=== PATIENT | male | born 1955 | race Caucasian/White ===

== ENCOUNTER 2023-04-24 12:15 | Inpatient (IN) | payer MEDICARE, SELFPAY ==
[2023-04-24] VITALS (21 sets, daily range): BP systolic 107–154; BP diastolic 67–86; PULSE 78–93; RESP 15–35; TEMP 36.8–37.1; O2SAT 77–94; BMI 34.2; BMI 34.3
--- NOTE | 2023-04-24 12:36 | XR_ITS ---
[facility] [place] [id number] Patient Name: BIPIN ULLOA MRN: [id number] date: 1955 Sex: M Assigned Patient Location: ER Current Patient Location: ER Accession/Order Number: [id number] Exam Date: 04/24/2023 12:40 Report Date: 04/24/2023 13:10 At the request of: MAGGIE LIU Procedure: XR chest 1V XR chest 1V, 04/24/2023 12:40 PM EDT, OH001 INDICATION: SOB COMPARISON: Chest CT from 10/22/2022. TECHNIQUE: Frontal view of the chest obtained. FINDINGS: The heart is normal in size. The aorta and mediastinum appear unremarkable. There is mild prominence of the pulmonary vasculature, especially on the left. Note is again made of elevation right hemidiaphragm with right basilar atelectasis. There are increased interstitial markings throughout the left lung which may represent pneumonitis or asymmetric interstitial edema. There is no evidence of pneumothorax or pleural effusion. The osseous structures appear intact. XR/XR chest 1V IMPRESSION: There is mild pulmonary vascular congestion with increased interstitial markings on the left which may represent interstitial infiltrate or asymmetric edema. Chronic right lower lobe atelectasis is again noted. Electronically authenticated by: LG BECERRA Date: 04/24/2023 13:10
--- NOTE | 2023-04-24 12:36 | ECG_ITS ---
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
--- NOTE | 2023-04-24 12:38 | ED.SOB1 ---
HPI - SOB/Dyspnea General Chief Complaint: Shortness of Breath/Dyspnea Stated Complaint: CHEST PAIN/COUGH Time Seen by Provider: 04/24/23 12:32 Source: patient Mode of arrival: walk-in History of Present Illness HPI Narrative: 67-year-old male presents for shortness of breath. He's had this for two or three days. He's been coughing up a little bit of off white phlegm and used his nebulizer at home, he has chronic obstructive pulmonary disease. No hemoptysis or fever. He thinks he might be getting an infection. No vomiting or diarrhea. Related Data Home Medications Medication Instructions Recorded Confirmed albuterol sulfate 2.5 mg/3 mL 2.5 mg inhalation Q6H PRN 04/24/23 04/24/23 (0.083 %) solution for nebulization shortness of breath or wheezing amlodipine 5 mg tablet 5 mg PO DAILY 04/24/23 04/24/23 aspirin 81 mg tablet,delayed 81 mg PO DAILY 04/24/23 04/24/23 release (Adult Low Dose Aspirin) atorvastatin 10 mg tablet 10 mg PO DAILY 04/24/23 04/24/23 cholecalciferol (vitamin D3) 50 50 mcg PO DAILY 04/24/23 04/24/23 mcg (2,000 unit) capsule (Vitamin D3) fluticasone 500 mcg-salmeterol 50 1 inh inhalation BID 04/24/23 04/24/23 mcg/dose blistr powdr for inhalation (Wixela Inhub) hydroxychloroquine 200 mg tablet 200 mg PO DAILY 04/24/23 04/24/23 lisinopril 40 mg tablet 40 mg PO DAILY 04/24/23 04/24/23 metoprolol tartrate 50 mg tablet 75 mg PO Q12H 04/24/23 04/24/23 pantoprazole 40 mg tablet,delayed 40 mg PO Q12H 04/24/23 04/24/23 release sulfasalazine 500 mg tablet 1 g PO Q12H 04/24/23 04/24/23 Allergies Allergy/AdvReac Type Severity Reaction Status Date / Time azithromycin [From Zithromax] Allergy Unknown Verified 04/24/23 13:39 Review of Systems ROS Narrative A ten point review of systems is negative except as noted above. Exam Narrative Exam Narrative: Nurses note and vital signs reviewed and patient is not hypoxic. General: The patient appears well and in no apparent distress. Patient is resting comfortably on cart. Skin: Warm, dry, no pallor noted. There is no rash noted. Head: Normocephalic, atraumatic Eye: Normal conjunctiva, no drainage Ears, Nose, Mouth, and Throat: oral mucosa is moist. Nares patent. Cardiovascular: Regular Rate and Rhythm Respiratory: bilateral rhonchi throughout Back: non-tender GI: soft and nontender Musculoskeletal: The patient has no evidence of calf tenderness, no pitting edema, symmetrical pulses noted bilaterally Neurological: A&O, normal speech Psychiatric: Cooperative Constitutional Vital Signs, click to edit/add: Last Vital Signs Temp 98.4 F 04/24/23 12:24 Pulse 79 04/24/23 13:10 Resp 16 04/24/23 13:10 BP 137/74 04/24/23 13:00 Pulse Ox 92 L 04/24/23 13:11 O2 Del Method Room Air 04/24/23 13:11 Course Vital Signs Vital signs: Vital Signs Temperature 98.4 F 04/24/23 12:24 Pulse Rate 84 04/24/23 12:24 Respiratory Rate 22 04/24/23 12:24 Blood Pressure 154/86 H 04/24/23 12:24 Pulse Oximetry 93 L 04/24/23 12:24 Oxygen Delivery Method Room Air 04/24/23 12:24 Temperature 98.4 F 04/24/23 12:24 Pulse Rate 79 04/24/23 13:10 Respiratory Rate 16 04/24/23 13:10 Blood Pressure 137/74 04/24/23 13:00 Pulse Oximetry 92 L 04/24/23 13:11 Oxygen Delivery Method Room Air 04/24/23 13:11 MDM - SOB/Dyspnea MDM Narrative Medical decision making narrative: The patient presents with what appears to be a chronic obstructive pulmonary disease exacerbation and he also tested positive for coated. No definite infiltrate noted on his chest x-ray. O2 sat is in the upper 80s and lower 90s and he is placed on oxygen and he is being admitted. He was given the option of going home but he doesn't feel well enough to go home and family agrees. Differential Diagnosis Differential diagnosis: Likely acute exacerbation of chronic obstructive airways disease, congestive heart failure, community acquired pneumonia and other (Covid) Lab Data Attestation: I reviewed the patient's lab results. Labs: Lab Results 04/24/23 04/24/23 Range/Units 12:35 13:22 WBC 6.0 (4.0-11.0) 10^3/uL RBC 4.86 (4.70-6.10) 10^6/uL Hgb 14.5 (14.0-18.0) g/dL Hct 43.1 (42.0-54.0) % MCV 88.7 (80.0-94.0) fL MCH 29.8 (25.9-34.0) pg MCHC 33.6 (29.9-35.2) g/dL RDW 12.7 (11.0-15.0) % Plt Count 191 (150-450) 10^3/uL MPV 9.5 (9.5-13.5) fL Neut % (Auto) 60.6 (43.0-75.0) % Lymph % (Auto) 17.1 L (20.5-60.0) % Kemper % (Auto) 18.2 H (1.7-12.0) % Eos % (Auto) 2.5 (0.9-7.0) % Baso % (Auto) 1.3 (0.2-2.0) % Neut # (Auto) 3.7 (1.4-6.5) 10^3/uL Lymph # (Auto) 1.0 L (1.2-3.8) 10^3/uL Kemper # (Auto) 1.1 H (0.3-0.8) 10^3/uL Eos # (Auto) 0.2 (0.0-0.7) 10^3/uL Baso # (Auto) 0.1 (0.0-0.1) 10^3/uL Abs Immat Gran (auto) 0.02 (0.00-0.03) 10^3/uL Imm/Tot Granulo (auto) 0.3 (0.0-0.5) % Sodium 127 L (136-145) mmol/L Potassium 4.0 (3.5-5.1) mmol/L Chloride 91 L (98-107) mmol/L Carbon Dioxide 30.5 (21.0-32.0) mmol/L Anion Gap 9.5 BUN 9.0 (7.0-18.0) mg/dL Creatinine 0.79 (0.70-1.30) mg/dL Est GFR ( Amer) >60 (>=60) Est GFR (Non-Af Amer) >60 (>=60) BUN/Creatinine Ratio 11.4 Glucose 97 (74-106) mg/dL Calcium 8.9 (8.5-10.1) mg/dL NT-Pro-B Natriuret Pep 566.0 (<=900.0) pg/mL SARS-CoV-2 (PCR) Positive A (NEGATIVE) Imaging Data Chest x-ray: Radiologist's impression: Procedure: XR chest 1V XR chest 1V, 04/24/2023 12:40 PM EDT, OH001 INDICATION: SOB COMPARISON: Chest CT from 10/22/2022. TECHNIQUE: Frontal view of the chest obtained. FINDINGS: The heart is normal in size. The aorta and mediastinum appear unremarkable. There is mild prominence of the pulmonary vasculature, especially on the left. Note is again made of elevation right hemidiaphragm with right basilar atelectasis. There are increased interstitial markings throughout the left lung which may represent pneumonitis or asymmetric interstitial edema. There is no evidence of pneumothorax or pleural effusion. The osseous structures appear intact. IMPRESSION: There is mild pulmonary vascular congestion with increased interstitial markings on the left which may represent interstitial infiltrate or asymmetric edema. Chronic right lower lobe atelectasis is again noted. Electronically authenticated by: LG BECERRA Date: 04/24/2023 13: Critical Care Time Critical Care Time Critical Care Time: Yes Total Critical Care Time: 35 Attestation: Due to the high probability of sudden and clinically significant deterioration in the patient's condition he/she required the highest level of my preparedness to intervene urgently I provided critical care time including documentation time, medication orders and management, reevaluation, vital sign assessment, ordering and reviewing of lab tests, ordering and reviewing of x-ray studies, and admission orders. Aggregate critical care time is 35 minutes including only time during which I was engaged in work directly related to his/her care and did not include time spent treating other patients simultaneously. Discharge Plan Discharge Chief Complaint: Shortness of Breath/Dyspnea Clinical Impression: COVID-19, Acute infective exacerbation of chronic obstructive airway disease Patient Disposition: Admitted as Observation Time of Disposition Decision: 14:03 Condition: Good
[2023-04-24] MEDS: METHYLPREDNISOLONE SOD SUCC PF 125 MG/2 ML VIAL IVP (12:52)
[2023-04-24 12:59] LABS: Basophils Absolute Auto 0.1 10^3/uL (0.0-0.1); Basophils Percent Auto 1.3 % (0.2-2.0); Eosinophils Absolute Auto 0.2 10^3/uL (0.0-0.7); Eosinophils Percent Auto 2.5 % (0.9-7.0); Hematocrit 43.1 % (42.0-54.0); Hemoglobin 14.5 g/dL (14.0-18.0); Immature Granulocytes Abs Auto 0.02 10^3/uL (0.00-0.03); Immature Granulocytes Pct Auto 0.3 % (0.0-0.5); Lymphocytes Percent Auto 17.1 % (20.5-60.0); Mean Corpuscular HGB Conc 33.6 g/dL (29.9-35.2); Mean Corpuscular Hemoglobin 29.8 pg (25.9-34.0); Mean Corpuscular Volume 88.7 fL (80.0-94.0); Mean Platelet Volume 9.5 fL (9.5-13.5); Monocytes Absolute Auto 1.1 10^3/uL (0.3-0.8); Monocytes Percent Auto 18.2 % (1.7-12.0); Neutrophils Absolute Auto 3.7 10^3/uL (1.4-6.5); Neutrophils Percent Auto 60.6 % (43.0-75.0); Platelet Count 191 10^3/uL (150-450); Red Blood Count 4.86 10^6/uL (4.70-6.10); Red Cell Distribution Width 12.7 % (11.0-15.0)
[2023-04-24 13:05] LABS: Anion Gap 9.5; BUN Creatinine Ratio 11.4; Calcium 8.9 mg/dL (8.5-10.1); Carbon Dioxide 30.5 mmol/L (21.0-32.0); Chloride 91 mmol/L (98-107); Estimated GFR (African America >60 (>=60); Estimated GFR (Non-African Ame >60 (>=60); Glucose 97 mg/dL (74-106); Sodium 127 mmol/L (136-145)
[2023-04-24] MEDS: ALBUTEROL SULFATE 2.5 MG/3 ML VIAL NEB IH (13:06)
[2023-04-24 13:56] LABS: SARS-CoV-2 Ag POSITIVE (NEGATIVE)
--- NOTE | 2023-04-24 16:02 | P.HP_ITS ---
Patient was also seen and examined by me a the time of admission. Labs, radiology, notes and chart were also reviewed. I agree with above findings. H&P: HPI History of Present Illness Chief complaint: CHEST PAIN/COUGH, sob, covid positive Narrative: Date/time of exam: 04/24/23 5132 This is a 67-year-old male patient with a past medical history as outlined below including chronic COPD, hypertension, hyperlipidemia, rheumatoid arthritis; who presented to the ED complaining of worsening shortness of breath. The pt reports onset of symptoms on Friday w/ generalized malaise/fatigue. By Friday night he was SOB which continued to worsen throughout Friday such that the pt was unable to sleep Friday night. Thus he presented to the ED today for further evaluation. He denies fevers/chills, but does endorse increased cough productive of white sputum and worsened body aches along w/ shortness of breath. Work-up in the ED revealed hypoxia (high 80s to low 90s) at rest, hyponatremia (127), and COVID positive nasal swab. Chest x-ray revealed mild left pulmonary vascular congestion with increased interstitial markings consistent with interstitial infiltrate or asymmetric edema. The patient is being admitted to observation by the hospitalist service for acute COPD exacerbation in setting of COVID 19 infection and likely left-sided pneumonia. At the time of my exam the pt is sitting on the side of the bed in no apparent distress but requiring O2 supplementation to maintain sats above 90%. EE wheezing is noted scattered throughout the left lung hussein. No significant increased WOB or abdominal accessory muscle use. Review of Systems ROS Status of ROS 10 or more systems reviewed and unremarkable except as noted in history and below [facility] Medical History (Updated 04/25/23 @ 07:30 by Tori Aguirre NP) Benign essential HTN ?I10 - Essential (primary) hypertension (ICD-10) COPD (chronic obstructive pulmonary disease) ?J44.9 - Chronic obstructive pulmonary disease, unspecified (ICD-10) GERD (gastroesophageal reflux disease) ?K21.9 - Gastro-esophageal reflux disease without esophagitis (ICD-10) Hyperlipidemia ?E78.5 - Hyperlipidemia, unspecified (ICD-10) Rheumatoid arthritis ?M06.9 - Rheumatoid arthritis, unspecified (ICD-10) Meds Home Medications and Allergies Home Medications Medication Instructions Recorded Confirmed Type albuterol sulfate 2.5 mg/3 mL 2.5 mg inhalation Q6H PRN 04/24/23 04/24/23 History (0.083 %) solution for nebulization shortness of breath or wheezing amlodipine 5 mg tablet 5 mg PO DAILY 04/24/23 04/24/23 History aspirin 81 mg tablet,delayed 81 mg PO DAILY 04/24/23 04/24/23 History release (Adult Low Dose Aspirin) atorvastatin 10 mg tablet 10 mg PO DAILY 04/24/23 04/24/23 History cholecalciferol (vitamin D3) 50 50 mcg PO DAILY 04/24/23 04/24/23 History mcg (2,000 unit) capsule (Vitamin D3) fluticasone 250 mcg-salmeterol 50 1 inh inhalation BID 04/24/23 04/24/23 History mcg/dose blistr powdr for inhalation (Wixela Inhub) hydroxychloroquine 200 mg tablet 200 mg PO BID 04/24/23 04/24/23 History lisinopril 40 mg tablet 40 mg PO DAILY 04/24/23 04/24/23 History metoprolol tartrate 50 mg tablet 75 mg PO Q12H 04/24/23 04/24/23 History pantoprazole 40 mg tablet,delayed 40 mg PO Q12H 04/24/23 04/24/23 History release sulfasalazine 500 mg tablet 1 g PO Q12H 04/24/23 04/24/23 History Allergies Allergy/AdvReac Type Severity Reaction Status Date / Time azithromycin [From Zithromax] Allergy Unknown Verified 04/24/23 13:39 Exam Constitutional Vital Signs, click to edit/add: Last Vital Signs Temp 98.4 F 04/24/23 12:24 Pulse 88 04/24/23 14:10 Resp 24 04/24/23 14:10 BP 137/74 04/24/23 13:00 Pulse Ox 91 L 04/24/23 14:10 O2 Del Method Room Air 04/24/23 13:11 Common normals: no apparent distress, oriented x3, alert and well nourished General appearance: cooperative Orientation/consciousness: Yes awake HENHI Common normals: normocephalic, head/scalp atraumatic, hearing grossly normal bilaterally, external ears normal, external nose normal and moist oral mucous membranes Head and scalp: normocephalic and atraumatic Face and sinus: normal facial exam Nose: external nose normal External ear: external ears normal Eye Common normals: PERRL, EOMs intact bilaterally, conjunctivae normal and no scleral icterus General eye: normal appearance of both eyes Alignment: alignment normal Eyelid: eyelids normal Conjunctiva: conjunctiva(e) normal Pupil: PERRL Neck & C-Spine Common normals: full ROM, supple and no JVD Chest Common normals: inspection of chest normal Chest: symmetrical chest wall rise Respiratory Common normals: normal respiratory effort, no retractions and no use of accessory muscles Effort & inspection: able to speak in complete sentences Auscultation: wheezes (Scattered EE L side) Cardio Common normals: no JVD, regular rate, regular rhythm, S1 normal heart sound, S2 normal heart sound, no gallops, no clicks, no murmurs, no rub and peripheral pulses 2+ throughout Rate: regular rate Rhythm: regular rhythm Heart sounds: S1 normal and S2 normal Peripheral pulses: pulses 2+ throughout GI Common normals: Normal to inspection, nondistended, normoactive bowel sounds present, soft to palpation, non-tender, no hepatosplenomegaly, no masses and no bruits Palpation: soft and no hepatosplenomegaly Bladder/kidney exam: bladder normal to palpation Back & Pelvis Common normals: thoracic and lumbar spine normal to inspection Extremity Common normals: normal capillary refill General: normal exam except as noted and edema (Trace bilat insteps); no clubbing and no cyanosis Neuro Javy Coma Scale: GCS not evaluated Common normals: oriented x3, CN's II-XII intact bilaterally, moves all extremities, no focal motor deficits and no sensory deficits noted Sensorium/orientation: awake and alert Speech: speech normal Motor exam: strength 5/5 throughout Psych Common normals: mental status grossly normal, thought process normal, affect normal and activity/motor behavior normal Thought process: normal thought process Results Labs Labs: Short CBC 04/24/23 Range/Units 12:35 WBC 6.0 (4.0-11.0) 10^3/uL Hgb 14.5 (14.0-18.0) g/dL Hct 43.1 (42.0-54.0) % Plt Count 191 (150-450) 10^3/uL BMP 04/24/23 12:35 Sodium 127 L Potassium 4.0 Chloride 91 L Carbon Dioxide 30.5 BUN 9.0 Creatinine 0.79 Glucose 97 Calcium 8.9 Pulse Oximetry Attestation: I have reviewed the pertinent pulse oximetry results. Assessment and Plan Assessment and Plan (1) Acute infective exacerbation of chronic obstructive airway disease: Assessment and Plan: ACUTE * Adm observation * Scheduled albuterol/ipratropium HFA inhalers q4h * PRN Albuterol HFA q2h * Pulmicort HFA BID * Guaifenisen BID * Solumedrol IVP 125 mg x 1 in ED, followed by 40 mg q8h * Doxycycline for possible underlying bacterial pneumonitis/bronchitis * Azithromycin allergic * CBC, CMP daily (2) COVID-19: Assessment and Plan: ACUTE * Start paxlovid antiviral x 5 days * isolation precautions per facility protocol * See COPD treatment above * Hold home sulfasalazine d/t immunosuppression (3) Acute hyponatremia: Assessment and Plan: ACUTE * Mild * Unclear etiology * Pt appears euvolemic, no Na wasting medications on med profile * Asymptomatic * Consider further work up or fluid restriction pending clinical course * Repeat CMP in AM to monitor (4) Benign essential HTN: Assessment and Plan: CHRONIC * Continue home amlodipine, lisinopril, metoprolol (5) GERD (gastroesophageal reflux disease): Assessment and Plan: CHRONIC * Continue home PPI (6) Hyperlipidemia: Assessment and Plan: CHRONIC * Continue home statin (7) Rheumatoid arthritis: Assessment and Plan: CHRONIC * Continue home hydroxychloroquine * Hold home sulfasalazine for now d/t immunosuppression
[2023-04-24] MEDS: ENOXAPARIN SODIUM 40 MG/0.4 ML SYRINGE SUBQ (19:05)
[2023-04-24] MEDS: GUAIFENESIN 600 MG TAB.ER.12H PO (19:05)
[2023-04-24] MEDS: OMEPRAZOLE 40 MG CAPSULE.DR PO (19:05)
[2023-04-24] MEDS: ALBUTEROL SULFATE 200 PUFF/6.7 GM INHALER IH ×2 (19:55→23:50)
[2023-04-24] MEDS: METOPROLOL TARTRATE 50 MG TABLET 75 MG PO (21:26)
[2023-04-24] MEDS: HYDROXYCHLOROQUINE SULFATE 200 MG TABLET PO (21:27)
[2023-04-24] MEDS: FLUTICASONE PROPIONATE HFA 110 MCG INHALER 120 PUFF/12 GM IH (21:28)
[2023-04-24] MEDS: METHYLPREDNISOLONE SOD SUCC PF 40 MG/ML VIAL IVP (21:30)
[2023-04-24] MEDS: DOXYCYCLINE MONOHYDRATE 100 MG CAPSULE PO (21:31)
[2023-04-24] MEDS: L. ACIDOPHILUS/L.BULGARICUS 1 PACKET GRAN.PACK PO (21:31)
--- NOTE | 2023-04-24 23:50 | RESP.RT ---
Addendum entered by Lindsey Varner 04/25/23 00:31: Patients Sp02 was 77% on room air. Original Note: Pt had nasal cannula off and laying on bedside table. Placed 3L nasal cannula back on patient and Spo2 increased to 93%. Explained importance of needing to wear the oxygen to the patient.
[2023-04-25] VITALS (11 sets, daily range): BP systolic 121–139; BP diastolic 62–73; PULSE 86–93; RESP 16–20; TEMP 36.6–36.8; O2SAT 87–95
[2023-04-25] MEDS: ALBUTEROL SULFATE 200 PUFF/6.7 GM INHALER IH ×6 (03:41→23:50)
[2023-04-25] MEDS: METHYLPREDNISOLONE SOD SUCC PF 40 MG/ML VIAL IVP ×3 (04:31→22:51)
[2023-04-25] MEDS: GUAIFENESIN 600 MG TAB.ER.12H PO ×2 (04:32→18:59)
--- NOTE | 2023-04-25 04:56 | PC.NURSE ---
patient's traction removed eliz care provided. Started educating patient on post care of his leg bag and bed bag. How to clean bags, how to switch bags out and be able to identify s/s of a UTI and/or infections. Hand outs and supplies given to patient. Patient verbalizes understanding of the education given.
--- NOTE | 2023-04-25 05:00 | XR_ITS ---
The [address] [address] Patient Name: BIPIN ULLOA MRN: [id number] date: 1955 Sex: M Assigned Patient Location: [place] Current Patient Location: [place] Accession/Order Number: [id number] Exam Date: 04/25/2023 05:08 Report Date: 04/25/2023 07:20 At the request of: YUE BUSTAMANTE Procedure: XR chest 1V EXAM: XR chest 1V HISTORY: Hypoxia COMPARISON: 04/24/2023 TECHNIQUE: AP portable FINDINGS: LUNGS: Mild right basilar opacity. Elevation the right hemidiaphragm, stable. The left lung is clear. VASCULATURE: No increased pulmonary vasculature. PLEURA: No pneumothorax, effusion, or pleural thickening. CARDIAC: No cardiomegaly or cardiac silhouette abnormality. MEDIASTINUM: No visible mass or adenopathy. BONES: No fracture or visible bone lesion. OTHER: Negative. XR/XR chest 1V IMPRESSION: Mild stable right basilar infiltrate/atelectasis Electronically authenticated by: KEVIN STANLEY Date: 04/25/2023 07:20
[2023-04-25 05:20] LABS: Hematocrit 45.8 % (42.0-54.0); Hemoglobin 15.5 g/dL (14.0-18.0); Immature Granulocytes Abs Auto 0.03 10^3/uL (0.00-0.03); Immature Granulocytes Pct Auto 0.7 % (0.0-0.5); Lymphocytes Absolute Auto 0.9 10^3/uL (1.2-3.8); Lymphocytes Percent Auto 20.7 % (20.5-60.0); Mean Corpuscular HGB Conc 33.8 g/dL (29.9-35.2); Mean Corpuscular Hemoglobin 30.1 pg (25.9-34.0); Mean Corpuscular Volume 88.9 fL (80.0-94.0); Mean Platelet Volume 9.4 fL (9.5-13.5); Monocytes Absolute Auto 0.2 10^3/uL (0.3-0.8); Monocytes Percent Auto 3.9 % (1.7-12.0); Neutrophils Absolute Auto 3.3 10^3/uL (1.4-6.5); Neutrophils Percent Auto 74.7 % (43.0-75.0); Platelet Count 198 10^3/uL (150-450); Red Blood Count 5.15 10^6/uL (4.70-6.10); Red Cell Distribution Width 12.7 % (11.0-15.0); White Blood Count 4.4 10^3/uL (4.0-11.0)
[2023-04-25 05:44] LABS: Alanine Aminotransferase 23 U/L (16-63); Albumin Level 3.8 g/dL (3.4-5.0); Alkaline Phosphatase 77 U/L (46-116); Anion Gap 11.4; Aspartate Amino Transferase 20 U/L (15-37); BUN Creatinine Ratio 12.6; Bilirubin Total 0.3 mg/dL (0.2-1.0); Calcium 9.3 mg/dL (8.5-10.1); Carbon Dioxide 30.7 mmol/L (21.0-32.0); Chloride 94 mmol/L (98-107); Estimated GFR (African America >60 (>=60); Estimated GFR (Non-African Ame >60 (>=60); Globulin 3.8 g/dL; Glucose 167 mg/dL (74-106); Potassium 4.1 mmol/L (3.5-5.1); Sodium 132 mmol/L (136-145); Total Protein 7.6 g/dL (6.4-8.2)
[2023-04-25] MEDS: OMEPRAZOLE 40 MG CAPSULE.DR PO ×2 (07:38→16:31)
[2023-04-25] MEDS: IPRATROPIUM BROMIDE 200 PUFF/12.9 GM INHALER IH ×5 (08:15→23:50)
[2023-04-25] MEDS: L. ACIDOPHILUS/L.BULGARICUS 1 PACKET GRAN.PACK PO ×2 (09:06→22:57)
[2023-04-25] MEDS: LISINOPRIL 20 MG TABLET 40 MG PO (09:06)
[2023-04-25] MEDS: CHOLECALCIFEROL (VITAMIN D3) 25 MCG/1,000 UNITS TABLET 50 MCG PO (09:06)
[2023-04-25] MEDS: ASPIRIN 81 MG TABLET.DR PO (09:06)
[2023-04-25] MEDS: DOXYCYCLINE MONOHYDRATE 100 MG CAPSULE PO ×2 (09:06→22:56)
[2023-04-25] MEDS: HYDROXYCHLOROQUINE SULFATE 200 MG TABLET PO ×2 (09:09→22:57)
[2023-04-25] MEDS: METOPROLOL TARTRATE 50 MG TABLET 75 MG PO ×2 (09:11→22:57)
--- NOTE | 2023-04-25 10:50 | P.PN_ITS ---
patient was also seen and examined by me today, labs, radiology, notes reviewed. I agree with the above findings however I have placed an order for Rocephin 1 g IV every 12 hours in addition to the doxycycline. Progress Note: Subjective Subjective Interval history: Date/Time of exam 04/25/23 0900 At the time of my exam the patient is sitting on the side of the bed in no acute distress. He continues to require O2 supplementation to keep his sats greater than 90%. Even with 2 L O2 supplementation, his sats dipped below 90% with prolonged conversation. He does not evidence significant dyspnea or increased work of breathing, however. He states he feels a little better today but agrees that an additional night or 2 in the hospital is likely required as he does not require home O2 with baseline sat of 94%. He has remained afebrile overnight. Nursing noted significant desaturations overnight and we suspect undiagnosed sleep apnea. 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 Exam Constitutional Vital Signs, click to edit/add: Last Vital Signs Temp 98 F 04/25/23 04:25 Pulse 93 H 04/25/23 08:39 Resp 18 04/25/23 04:25 BP 130/62 04/25/23 04:25 Pulse Ox 87 L 04/25/23 08:39 O2 Del Method Room Air 04/25/23 08:39 O2 Flow Rate 3 04/25/23 04:25 Common normals: no apparent distress, oriented x3 and alert General appearance: cooperative Orientation/consciousness: Yes awake HENCO Common normals: normocephalic, head/scalp atraumatic and hearing grossly normal bilaterally Head and scalp: normocephalic and atraumatic Eye Common normals: PERRL, EOMs intact bilaterally, conjunctivae normal and no scleral icterus General eye: normal appearance of both eyes Conjunctiva: conjunctiva(e) normal Pupil: PERRL Neck & C-Spine Common normals: no JVD Chest Common normals: inspection of chest normal Chest: symmetrical chest wall rise Respiratory Common normals: normal respiratory effort and no use of accessory muscles Effort & inspection: able to speak in complete sentences Auscultation: wheezes (Scattered EE wheeze/groan throughout except RLL) and diminished lung sounds (RLL) Cardio Common normals: no JVD, regular rate, regular rhythm, S1 normal heart sound, S2 normal heart sound, no gallops, no clicks, no murmurs, no rub and peripheral pulses 2+ throughout Rate: regular rate Rhythm: regular rhythm Heart sounds: S1 normal and S2 normal Peripheral pulses: pulses 2+ throughout GI Common normals: Normal to inspection, nondistended, normoactive bowel sounds present, soft to palpation, non-tender and no hepatosplenomegaly Palpation: soft and no hepatosplenomegaly Bladder/kidney exam: bladder normal to palpation Extremity Common normals: normal to inspection and no calf tenderness General: edema (trace to 1+ bilat insteps); no clubbing and no cyanosis Neuro Common normals: oriented x3, CN's II-XII intact bilaterally, moves all extremities, no focal motor deficits and no sensory deficits noted Sensorium/orientation: awake and alert Psych Common normals: mental status grossly normal Progress Note: Objective Labs Labs: Short CBC 04/24/23 04/25/23 Range/Units 12:35 05:00 WBC 6.0 4.4 (4.0-11.0) 10^3/uL Hgb 14.5 15.5 (14.0-18.0) g/dL Hct 43.1 45.8 (42.0-54.0) % Plt Count 191 198 (150-450) 10^3/uL BMP 04/24/23 04/25/23 12:35 05:00 Sodium 127 L 132 L Potassium 4.0 4.1 Chloride 91 L 94 L Carbon Dioxide 30.5 30.7 BUN 9.0 12.0 Creatinine 0.79 0.95 Glucose 97 167 H Calcium 8.9 9.3 Liver Function 04/25/23 Range/Units 05:00 Total Bilirubin 0.3 (0.2-1.0) mg/dL AST 20 (15-37) U/L ALT 23 (16-63) U/L Alkaline Phosphatase 77 (46-116) U/L Albumin 3.8 (3.4-5.0) g/dL Imaging Chest x-ray: Attestation: I have reviewed the pertinent imaging results. Radiologist's impression: IMPRESSION: Mild stable right basilar infiltrate/atelectasis Progress Note: A&P Assessment and Plan (1) Acute infective exacerbation of chronic obstructive airway disease: Assessment and Plan: ACUTE * Improving, not yet back to baseline * Change to inpatient status - will need > 2 midnight stay * Continue * scheduled albuterol/ipratropium HFA inhalers q4h * PRN Albuterol HFA q2h * Pulmicort HFA BID * Guaifenisen BID * Solumedrol IVP 40 mg q8h - titrate down as able * Continue Doxycycline for possible underlying bacterial pneumonitis/bronchitis, Day 08/16 * Azithromycin allergic * O2 supplementation to keep sats > 90% * Consider home O2 eval pending clinical course * CBC, CMP daily (2) COVID-19: Assessment and Plan: ACUTE * Continue paxlovid antiviral, day 08/11 - tolerating well * isolation precautions per facility protocol * See COPD treatment above * Hold home sulfasalazine d/t immunosuppression (3) Acute hyponatremia: Assessment and Plan: ACUTE Laboratory Tests 04/25/23 05:00 Sodium 132 L * Resolving * Unclear etiology * Pt appears euvolemic, no Na wasting medications on med profile * Asymptomatic * Consider further work up or fluid restriction pending clinical course * Repeat CMP in AM to monitor (4) Suspected sleep apnea: Assessment and Plan: SUSPECTED * Defer to outpatient management per Dr Granado, aircraft inspection record clerk (5) Benign essential HTN: Assessment and Plan: CHRONIC * Continue home amlodipine, lisinopril, metoprolol (6) GERD (gastroesophageal reflux disease): Assessment and Plan: CHRONIC * Continue home PPI (7) Hyperlipidemia: Assessment and Plan: CHRONIC * Continue home statin (8) Rheumatoid arthritis: Assessment and Plan: CHRONIC * Continue home hydroxychloroquine * Hold home sulfasalazine for now d/t immunosuppression, plan to resume at discharge
--- NOTE | 2023-04-25 12:04 | CM.NOTE ---
Rounds made with Dr. Turner, no discharge today. Pt continues with hypoxia, will start antibiotic today.
[2023-04-25] MEDS: CEFTRIAXONE 1,000 MG in 0.9 % SODIUM CHLORIDE 50 ML 100 MG IV (14:26)
[2023-04-25] MEDS: ENOXAPARIN SODIUM 40 MG/0.4 ML SYRINGE SUBQ (18:58)
[2023-04-25] MEDS: WIXELA INHALER 1 EACH IH (20:25)
[2023-04-25] MEDS: AMLODIPINE BESYLATE 5 MG TABLET PO (22:56)
[2023-04-26] VITALS (8 sets, daily range): BP systolic 117–118; BP diastolic 64–67; PULSE 78–87; RESP 18–118; TEMP 36.3–36.6; O2SAT 87–95
[2023-04-26] MEDS: ALBUTEROL SULFATE 200 PUFF/6.7 GM INHALER IH ×3 (03:39→11:32)
[2023-04-26] MEDS: IPRATROPIUM BROMIDE 200 PUFF/12.9 GM INHALER IH ×3 (03:39→11:33)
[2023-04-26] MEDS: CEFTRIAXONE 1,000 MG in 0.9 % SODIUM CHLORIDE 50 ML 100 MG IV (04:06)
[2023-04-26 05:09] LABS: Basophils Percent Auto 0.1 % (0.2-2.0); Hematocrit 44.5 % (42.0-54.0); Hemoglobin 14.8 g/dL (14.0-18.0); Immature Granulocytes Abs Auto 0.08 10^3/uL (0.00-0.03); Immature Granulocytes Pct Auto 0.6 % (0.0-0.5); Lymphocytes Percent Auto 7.6 % (20.5-60.0); Mean Corpuscular HGB Conc 33.3 g/dL (29.9-35.2); Mean Corpuscular Hemoglobin 30.2 pg (25.9-34.0); Mean Corpuscular Volume 90.8 fL (80.0-94.0); Mean Platelet Volume 9.7 fL (9.5-13.5); Monocytes Absolute Auto 1.2 10^3/uL (0.3-0.8); Monocytes Percent Auto 8.6 % (1.7-12.0); Neutrophils Absolute Auto 11.4 10^3/uL (1.4-6.5); Neutrophils Percent Auto 83.1 % (43.0-75.0); Platelet Count 197 10^3/uL (150-450); Red Cell Distribution Width 13.2 % (11.0-15.0); White Blood Count 13.7 10^3/uL (4.0-11.0)
[2023-04-26] MEDS: METHYLPREDNISOLONE SOD SUCC PF 40 MG/ML VIAL IVP (05:14)
[2023-04-26] MEDS: GUAIFENESIN 600 MG TAB.ER.12H PO (05:15)
[2023-04-26 05:32] LABS: Alanine Aminotransferase 22 U/L (16-63); Albumin Level 3.4 g/dL (3.4-5.0); Alkaline Phosphatase 65 U/L (46-116); Anion Gap 9.2; Aspartate Amino Transferase 17 U/L (15-37); BUN Creatinine Ratio 20.8; Bilirubin Total 0.2 mg/dL (0.2-1.0); Calcium 8.7 mg/dL (8.5-10.1); Carbon Dioxide 31.8 mmol/L (21.0-32.0); Chloride 97 mmol/L (98-107); Estimated GFR (African America >60 (>=60); Estimated GFR (Non-African Ame >60 (>=60); Globulin 3.5 g/dL; Glucose 165 mg/dL (74-106); Sodium 134 mmol/L (136-145); Total Protein 6.9 g/dL (6.4-8.2)
[2023-04-26] MEDS: WIXELA INHALER 1 EACH IH (07:45)
[2023-04-26] MEDS: CHOLECALCIFEROL (VITAMIN D3) 25 MCG/1,000 UNITS TABLET 50 MCG PO (08:20)
[2023-04-26] MEDS: HYDROXYCHLOROQUINE SULFATE 200 MG TABLET PO (08:20)
[2023-04-26] MEDS: DOXYCYCLINE MONOHYDRATE 100 MG CAPSULE PO (08:22)
[2023-04-26] MEDS: OMEPRAZOLE 40 MG CAPSULE.DR PO (08:22)
[2023-04-26] MEDS: ASPIRIN 81 MG TABLET.DR PO (08:22)
[2023-04-26] MEDS: LISINOPRIL 20 MG TABLET 40 MG PO (08:22)
[2023-04-26] MEDS: L. ACIDOPHILUS/L.BULGARICUS 1 PACKET GRAN.PACK PO (08:22)
[2023-04-26] MEDS: METOPROLOL TARTRATE 50 MG TABLET 75 MG PO (08:24)
--- NOTE | 2023-04-26 12:13 | PM.DS1 ---
DS: Providers Provider Date of admission: 04/25/23 11:50 Primary care physician: KURTIS MUSA DO DS: Diagnosis Discharge Diagnosis (1) Acute infective exacerbation of chronic obstructive airway disease: (2) COVID-19: (3) Hypoxia: (4) Acute hyponatremia: (5) Benign essential HTN: (6) Suspected sleep apnea: DS: Summary Hospital Course Hospital Course: Reason for admission: See ER note and H&P for details. 67 y/o male with history of COPD to ER with SOB. C/o increased symptoms over the past 2-3 days. Afebrile. Increased fatigue and body aches. Increased weakness and SOB with exertion and to ER. Chest x-ray negative. Labs show low sodium 127 and Covid-19 positive. SpO2 85% on room air and started supplemental oxygen then admitted for treatment. Hospital course: Started paxlovid and steroids. Started albuterol and antibiotics. Resumed home medication. Continued to have SOB and fatigue. Continued to have hypoxia and up to 3 LPM. Patient improved and less symptoms. Ambulating around room but not able to wean off oxygen. Performed walk test and patient desaturated to 87% on room air which qualified for home O2. Patient discharged home in stable condition. Arranged for home O2 with portability. Complete paxlovid. Take antibiotics and steroids as directed. Use albuterol PRN. Noted to have apnea during sleep and worsening hypoxia. Patient likely has OMAYRA and needs to have outpatient sleep study. Time Spent with Patient Time attestation: Total time spent providing and/or coordinating discharge services: Exam Constitutional Vital Signs, click to edit/add: Last Vital Signs Temp 97.8 F 04/26/23 07:00 Pulse 78 04/26/23 08:00 Resp 118 H 04/26/23 08:00 BP 117/67 04/26/23 07:00 Pulse Ox 92 L 04/26/23 11:38 O2 Del Method Nasal Cannula 04/26/23 11:38 O2 Flow Rate 3 04/26/23 11:38 Documenting provider has reviewed patient's vital signs: yes Common normals: no apparent distress, oriented x3 and alert HENMT Common normals: normocephalic Eye Common normals: PERRL and EOMs intact bilaterally Respiratory Common normals: normal respiratory effort and clear to auscultation bilaterally Cardio Common normals: regular rate, regular rhythm, no gallops, no murmurs and no rub GI Common normals: Normal to inspection, nondistended, normoactive bowel sounds present and non-tender Extremity Common normals: no pedal edema DS: Data Data Completed and Pending Labs on day of discharge: Labs from last 24 hours 04/26/23 04:30 WBC 13.7 H RBC 4.90 Hgb 14.8 Hct 44.5 MCV 90.8 MCH 30.2 MCHC 33.3 RDW 13.2 Plt Count 197 MPV 9.7 Neut % (Auto) 83.1 H Lymph % (Auto) 7.6 L [place] % (Auto) 8.6 Eos % (Auto) 0.0 L Baso % (Auto) 0.1 L Neut # (Auto) 11.4 H Lymph # (Auto) 1.0 L [place] # (Auto) 1.2 H Eos # (Auto) 0.0 Baso # (Auto) 0.0 Abs Immat Gran (auto) 0.08 H Imm/Tot Granulo (auto) 0.6 H Sodium 134 L Potassium 4.0 Chloride 97 L Carbon Dioxide 31.8 Anion Gap 9.2 BUN 20.0 H Creatinine 0.96 Est GFR ( Amer) >60 Est GFR (Non-Af Amer) >60 BUN/Creatinine Ratio 20.8 Glucose 165 H Calcium 8.7 Total Bilirubin 0.2 AST 17 ALT 22 Alkaline Phosphatase 65 Total Protein 6.9 Albumin 3.4 Globulin 3.5 Albumin/Globulin Ratio 1.0 Discharge Plan Discharge Condition: Good Discharge Medications: New Paxlovid 300 mg (150 mg x 2)-100 mg Tablets,Dose Pack 1 ea PO BID Qty: 1 0RF prednisone 10 mg tablets,dose pack 10 mg PO DAILY Qty: 39 0RF Rx Instructions: 6 PO daily x 3 days, then 4 PO daily x 3 days, then 2 PO daily x 3 days, then 1 PO daily x 3 days cefdinir 300 mg capsule 300 mg PO BID 10 Days Qty: 20 0RF Continued sulfasalazine 500 mg tablet 1 g PO Q12H hydroxychloroquine 200 mg tablet 200 mg PO BID pantoprazole 40 mg tablet,delayed release (DR/EC) 40 mg PO Q12H metoprolol tartrate 50 mg tablet 75 mg PO Q12H atorvastatin 10 mg tablet 10 mg PO DAILY cholecalciferol (vitamin D3) [Vitamin D3] 50 mcg (2,000 unit) capsule 50 mcg PO DAILY amlodipine 5 mg tablet 5 mg PO DAILY lisinopril 40 mg tablet 40 mg PO DAILY aspirin [Adult Low Dose Aspirin] 81 mg tablet,delayed release (DR/EC) 81 mg PO DAILY albuterol sulfate 2.5 mg /3 mL (0.083 %) solution for nebulization 2.5 mg inhalation Q6H PRN (Reason: shortness of breath or wheezing) fluticasone propion-salmeterol [Wixela Inhub] 250-50 mcg/dose blister with device 1 inh inhalation BID Activity: resume usual activities as tolerated Diet: advance to your usual diet Activity Restrictions/Additional Instructions: - Discuss a possible sleep study with Dr Granado, 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
--- NOTE | 2023-04-28 10:42 | SWNOTE1 ---
[facility].
--- NOTE | 2023-04-28 13:45 | CM.DCFOLLOWU ---
Person spoke with: Jimmie How are you feeling? Much better How is your pain? No pain Did you understand your discharge instructions? yes Do you have any questions about your discharge instructions? No Were you given any prescriptions at discharge? Yes Were you able to get your prescriptions filled? Yes Do you understand how to take your medications as ordered? Yes Do you have any questions about your follow up appointment and do you plan to keep your follow up appointment? Yes they are all scheduled Is there anything else that you would like to discuss? No Questions/Comments/Concerns/Other:
== END 2023-04-26 13:30 | disposition home or self-care (01) | DRG 178 ==
LOC: ER 14:03 → MS 15:44
PROVIDERS: Admitting Provider Family Medicine; Emergency Provider Emergency Medicine; PCP Family Medicine; Visit Provider Nurse Practitioner
DX: U07.1 COVID-19 (principal); E87.1 Hypo-osmolality and hyponatremia; J44.1 Chronic obstructive pulmonary disease with (acute) exacerbation; R09.02 Hypoxemia; I10 Essential (primary) hypertension; G47.33 Obstructive sleep apnea (adult) (pediatric); K21.9 Gastro-esophageal reflux disease without esophagitis; E78.5 Hyperlipidemia, unspecified; M06.9 Rheumatoid arthritis, unspecified; Z79.82 Long term (current) use of aspirin; Z79.899 Other long term (current) drug therapy; Z88.1 Allergy status to other antibiotic agents
CPT/HCPCS: 36415; 71045; 80048; 80053; 83880; 85025; 87811; 93005; 94640; 94761; 96365; 96366; 96372; 96375; 96376; 99285; G0378; J2920; J2930

== ENCOUNTER 2023-05-19 09:50 | Outpatient (OUT) | payer MEDICARE, SELFPAY ==
--- OUTSIDE RECORDS SUMMARY | 2023-06-24 18:59 | XMS_ITS | CCD ---
Author Name Unknown Address [address] [place] [address] Organization [facility] Care Team Providers Care Nuclear Officer Name Role Phone Joe Musa Primary Care Provider MUSA, JOE Referring Unavailable MUSA, JOE Primary Care Unavailable MUSA, JOE Referring Unavailable MUSA, JOE Primary Care Unavailable MUSA, JOE Referring Unavailable MUSA, JOE Primary Care Unavailable MUSA, JOE Referring Unavailable MUSA, JOE Primary Care Unavailable MUSA, JOE Referring Unavailable MUSA, JOE Primary Care Unavailable Jazmin Ortiz Unavailable LENCHO, DR JOE Parikh Consulting Unavailable MUSA, DR JOE Parikh Attending Unavailable MUSA, DR JOE Parikh Admitting Unavailable MUSA, DR JOE Parikh Primary Care Unavailable ZIEBER, DR GIAN Parikh Consulting Unavailable MUSA, DR JOE Parikh Consulting Unavailable MUSA, DR JOE Parikh Attending Unavailable MUSA, DR JOE Parikh Admitting Unavailable MUSA, DR JOE Parikh Primary Care Unavailable SAMSA ., DARIN Attending Unavailable SAMSA ., DARIN Admitting Unavailable MUSA, DR JOE Parikh Primary Care Unavailable MUSA, DR JOE Parikh Primary Care Unavailable MISC, DR REDDY Consulting Unavailable MISC, DR REDDY Attending Unavailable MISC, DR REDDY Admitting Unavailable MUSA, DR JOE Parikh Attending Unavailable MUSA, DR JOE Parikh Admitting Unavailable MUSA, DR JOE Parikh Primary Care Unavailable REQUEST, DR MARI LISTED Consulting Unavaila eda QUINN, DR HAMLET Parikh Attending Unavailable DENNIS ., DR NUHA Ortiz Consulting Unavailable NADEREKati, DR HAMLET Parikh Admitting Unavailable MUSA, DR JOE Parikh Primary Care Unavailable BURNSIDE, DR KEVIN Wayne Consulting Unavailable NADERER, DR HAMLET Parikh Consulting Unavailable TREVON BHARDWAJ Consulting Unavailable SAMSA ., DARIN Consulting Unavailable GEORGE, KWAKU Consulting Unavailable SISTER, CHRISTOPH Consulting Unavailable MUSA, DR JOE Parikh Attending Unavailable MUSA, DR JOE Parikh Admitting Unavailable MUSA, DR JOE Parikh Primary Care Unavailable JADEN, DR KEVIN Wayne Consulting Unavailable LENCHO, DR JOE Parikh Consulting Unavailable ATTILA ., DARIN Attending Unavailable ATTILA ., DARIN Admitting Unavailable LENCHO, DR JOE Parikh Primary Care Unavailable AL, DR GIAN Parikh Consulting Unavailable SAM ., DARIN Consulting Unavailable JADEN, DR KEVIN Wayne Consulting Unavailable [facility], DR REDDY Attending Unavailable [facility], DR REDDY Admitting Unavailable LENCHO, DR JOE Parikh Primary Care Unavailable [facility], DR REDDY Consulting Unavailable MARCIANO NEWELL Attending Unavailable Allergies Allergy Classification Reported Allergen(s) Allergy Type Date of Onset Reaction(s) Facility (1 source) Azithromycin Drug Allergy 06-19-2022 [facility] Repository Medications Current Medications Medication Drug Class(es) Dates Sig (Normalized) Sig (Original) [id number] 200 actuat albuterol 0.09 mg/actuat metered dose inhaler (2 sources) beta2-Adrenergic Agonist Start: 07-14-2021 take 2 puff(s) by inhalation every four to six hours as needed Albuterol Sulfate HFA 108 (90 Base) MCG/ACT 2 puffs as needed Inhalation every 4-6 hours for 14 days Jul, Active Albuterol Sulfat e (2.5 MG/3ML) 0.083% 3 ml as needed Inhalation every 6 hrs Active azithromycin 250 mg oral tablet (1 source) Macrolide Antimicrobial Start: 07-14-2021 Azithromycin 250 MG 2 tablet on the first day, then 1 tablet daily for 4 days Orally Once a day for 5 day(s) Jul, Active 120 actuat budesonide 0.08 mg/actuat / formoterol fumarate 0.0045 mg/actuat metered dose inhaler (1 source) Corticosteroid, beta2-Adrenergic Agonist take 2 puff(s) by inhalation once daily Symbicort 80-4.5 MCG/ACT 2 puffs Inhalation Once a day Active lisinopril 20 mg oral tablet (1 source) Angiotensin Converting Enzyme Inhibitor take 1 tablet by mouth every twenty-four hours Lisinopril 20 MG 1 tablet Orally Once a day Active methylPREDNISolone 4 mg oral tablet (1 source) Corticosteroid Start: 07-14-2021 Medrol (Aleksey) 4 MG as directed Orally for daily dose take half with breakfast half with dinner for 6 days Jul, Active Metoprolol (1 source) beta-Adrenergic Melina Metoprolol Tartrate 50 mg. Active pantoprazole 20 mg delayed release oral tablet (1 source) Proton Pump Inhibitor take 1 tablet by mouth every twenty-four hours Pantoprazole Sodium 20 MG 1 tablet Orally Once a day Active Completed/Discontinued Medications Medication Drug Class(es) Dates Sig (Normalized) Sig (Original) iopamidol (ISOVUE-370) 76 % injection 18 mL (1 source) Start: 06-07-2020 End: 06-07-2020 iopamidol (ISOVUE-370) 76 % injection 18 mL iopamidol (ISOVUE-370) 76 % injection 75 mL (1 source) Start: 06-07-2020 End: 06-07-2020 iopamidol (ISOVUE-370) 76 % injection 75 mL Problems Active Problems Problem Classification Problem Date Documented Da te Episodic/Chronic Abdominal pain (1 source) Generalized abdominal pain; Translations: [Generalized abdominal pain] Episodic Chronic obstructive pulmonary disease and bronchiectasis (1 source) Chronic obstructive pulmonary disease with (acute) exacerbation; Translations: [COPD WITH ACUTE EXACERBATION] Onset: 07-03-2022 Chronic Diseases of white blood cells (1 source) Elevated white blood cell count, unspecified; Translations: [ELEVATED WHITE BLOOD CELL COUNT UNS] Onset: 07-03-2022 Chronic Disorders of lipid metabolism (3 sources) Hyperlipidemia, unspecified; Translations: [Mixed hyperlipidemia] Onset: 07-18-2022 Chronic Esophageal disorders (1 source) Gastro-esophageal reflux disease without esophagitis; Translations: [GERD WITHOUT ESOPHAGITIS] Onset: 07-03-2022 Chronic Essential hypertension (3 sources) Essential (primary) hypertension; Translations: [ESSENTIAL PRIMARY HYPERTENSION] Onset: 07-03-2022 Chronic Nonmalignant breast conditions (2 sources) Breast lump; Translations: [Breast lump] Episodic Nonmalignant breast conditions (1 source) Lump in central portion of left breast; Translations: [Lump in central portion of left breast] Other aftercare (5 sources) Other long term care social worker (current) drug therapy; Translations: [OTH [facility] CURRENT DRUG THERAPY] Onset: 07-03-2022 Episodic Other eye disorders (4 sources) Ocular pain, right eye; Translations: [OCULAR PAIN RIGHT EYE] Onset: 10-31-2022 Episodic Other lower respiratory disease (4 sources) Solitary pulmonary nodule; Translations: [SOLITARY PULMONARY NODULE] Onset: 10-22-2022 Episodic Other lower respiratory disease (2 sources) Shortness of breath; Translations: [Shortness of breath] Onset: 12-18-2022 Episodic Other nutritional; endocrine; and metabolic disorders (1 source) Morbid (severe) obesity due to excess calories; Translations: [MORBID SEVERE OBES D/T EXCESS JUDITH] Onset: 07-03-2022 Chronic Other nutritional; endocrine; and metabolic disorders (1 source) Body mass index (BMI) 33.0-33.9, adult; Translations: [BODY MASS INDEX BMI 33.0-33.9 ADULT] Onset: 07-03-2022 Chronic Rheumatoid arthritis and related disease (1 source) Inflammatory polyarthropathy; Translations: [INFLAMMATORY POLYARTHROPATHY] Onset: 07-03-2022 Chronic Unclassified (1 source) CONTACT W/AND (SUSP) EXPOS COVID-19; Translations: [CONTACT W/AND (SUSP) EXPOS COVID-19] Onset: 07-03-2022 Past or Other Problems Problem Classification Problem Date Documented Date Episodic/Chronic Chronic obstructive pulmonary disease and bronchiectasis (1 source) Bronchitis, not specified as acute or chronic Onset: 07-14-2021 Resolved: 07-14-2021 Episodic E Codes: Adverse effects of medical drugs (1 source) Adverse effect of carbonic-anhydrase inhibitors, benzothiadiazides and other diuretics, initial encounter; Translations: [ADVRS EFF ISABELA BENZO OTH DIURET INIT] Onset: 07-03-2022 Episodic Fluid and electrolyte disorders (3 sources) Hypo-osmolality and hyponatremia; Translations: [HYPO-OSMOLALITY AND HYPONATREMIA] Onset: 06-20-2022 Episodic Immunizations and screening for infectious disease (2 sources) Contact with and (suspected) exposure to other viral communicable diseases; Translations: [Raised antibody titer] Onset: 07-14-2021 Resolved: 07-14-2021 Episodic Other hematologic conditions (1 source) Elevated erythrocyte sedimentation rate; Translations: [ELEVATED ERYTHROCYTE SED RATE] Onset: 07-03-2022 Episodic Other lower respiratory disease (1 source) Other nonspecific abnormal finding of lung field; Translations: [OTH NONSPECIFIC ABN FIND LNG FIELD] Onset: 07-18-2022 Episodic Other nutritional; endocrine; and metabolic disorders (1 source) Loss of appetite; Translations: [Anorexia] Episodic Other screening for suspected conditions (not mental disorders or infectious disease) (5 sources) Other specified abnormal findings of blood chemistry; Translations: [Encounter for screening for malignant neoplasm of prostate] Onset: 07-16-2022 Episodic Other upper respiratory infections (1 source) Acute sinusitis, unspecified; Translations: [ACUTE SINUSITIS UNSPECIFIED] Onset: 07-03-2022 Episodic Residual codes; unclassified (4 sources) Localized edema; Translations: [LOCALIZED EDEMA] Onset: 09-06-2022 Episodic Screening and history of mental health and substance abuse codes (1 source) Personal history of nicotine dependence; Translations: [PERSONAL HISTORY OF NICOTINE DEPEND] Onset: 07-18-2022 Episodic Results Test Name Value Interpretation Reference Range Facil ity CBC, ALB, ALT, AST, ALK AND CREAon 01-23-2023 Albumin [Mass/Vol] 4.4 g/dL Normal (3.5 - 5.0) [facility] Comment on above: Order Comment: FACIL ITY: [facility] - [id number] Performed By: #### C BC/2A, MSEP, ANAFX, ACAX3, C3-C4, ESRCRP, TSHFX, VD25, CCP, RHF, URCA, HBSAG, HCV #### [facility] [address] [facility], [id number] ALK PHOS 68 U/L Normal (38 - 126) [facility] Comment on above: Order Comment: FACIL ITY: [facility] - [id number] Performed By: #### C BC/2A, MSEP, ANAFX, ACAX3, C3-C4, ESRCRP, TSHFX, VD25, CCP, RHF, URCA, HBSAG, HCV #### [facility] [address] [facility], [id number] ALT [Catalytic activity/Vol] 26 U/L Normal (1 - 45 ) [facility] Comment on above: Order Comment: FACIL ITY: [facility] - [id number] Performed By: #### C BC/2A, MSEP, ANAFX, ACAX3, C3-C4, ESRCRP, TSHFX, VD25, CCP, RHF, URCA, HBSAG, HCV #### [facility] [address] [facility], [id number] AST [Catalytic activity/Vol] 34 U/L Normal (15 - 4 6) [facility] Comment on above: Order Comment: FACIL ITY: [facility] - [id number] Performed By: #### C BC/2A, MSEP, ANAFX, ACAX3, C3-C4, ESRCRP, TSHFX, VD25, CCP, RHF, URCA, HBSAG, HCV #### [facility] [address] [facility], [id number] Creatinine [Mass/Vol] 0.71 mg/dL Normal (0.66 - 1.25) [facility] Comment on above: Order Comment: FACIL ITY: [facility] - [id number] Performed By: #### C BC/2A, MSEP, ANAFX, ACAX3, C3-C4, ESRCRP, TSHFX, VD25, CCP, RHF, URCA, HBSAG, HCV #### [facility] [address] [facility], [id number] GFR- AMER 133.9 ML/M1.7 Normal (60.0 - 161.8) [facility] Comment on above: Order Comment: FACIL ITY: [facility] - [id number] Performed By: #### C BC/2A, MSEP, ANAFX, ACAX3, C3-C4, ESRCRP, TSHFX, VD25, CCP, RHF, URCA, HBSAG, HCV #### [facility] [address] [facility], [id number] GFR-NON AFRIC-AMER 110.7 ML/M1.7 Normal (60.0 - 133.8) [facility] Comment on above: Order Comment: FACIL ITY: [facility] - [id number] Performed By: #### C BC/2A, MSEP, ANAFX, ACAX3, C3-C4, ESRCRP, TSHFX, VD25, CCP, RHF, URCA, HBSAG, HCV #### [facility] [address] [facility], [id number] Hematocrit (Bld) [Volume fraction] 46.5 % Normal ( 42.0 - 52.0) [facility] Comment on above: Order Comment: FACIL ITY: [facility] - [id number] Performed By: #### C BC/2A, MSEP, ANAFX, ACAX3, C3-C4, ESRCRP, TSHFX, VD25, CCP, RHF, URCA, HBSAG, HCV #### [facility] [address] [facility], [id number] Hemoglobin (Bld) [Mass/Vol] 15.0 g/dL Normal (14.0 - 18.0) [facility] Comment on above: Order Comment: FACIL ITY: [facility] - [id number] Performed By: #### C BC/2A, MSEP, ANAFX, ACAX3, C3-C4, ESRCRP, TSHFX, VD25, CCP, RHF, URCA, HBSAG, HCV #### [facility] [address] [facility], [id number] MCH (RBC) [Entitic mass] 29.1 pg Normal (27.0 - 33. 0) [facility] Comment on above: Order Comment: FACIL ITY: [facility] - [id number] Performed By: #### C BC/2A, MSEP, ANAFX, ACAX3, C3-C4, ESRCRP, TSHFX, VD25, CCP, RHF, URCA, HBSAG, HCV #### [facility] [address] [facility], [id number] MCHC (RBC) [Mass/Vol] 32.3 g/dL Normal (30.0 - 37.0) [facility] Comment on above: Order Comment: FACIL ITY: [facility] - [id number] Performed By: #### C BC/2A, MSEP, ANAFX, ACAX3, C3-C4, ESRCRP, TSHFX, VD25, CCP, RHF, URCA, HBSAG, HCV #### [facility] [address] [facility], [address] MCV (RBC) [Entitic vol] 90.1 fL Normal (80.0 - 94.0 ) [facility] Comment on above: Order Comment: FACIL ITY: [facility] - [id number] Performed By: #### C BC/2A, MSEP, ANAFX, ACAX3, C3-C4, ESRCRP, TSHFX, VD25, CCP, RHF, URCA, HBSAG, HCV #### [facility] [address] [facility], [address] PLT 305 x10^3ul Normal (130 - 400) [facility] Comment on above: Order Comment: FACIL ITY: [facility] - [id number] Performed By: #### C BC/2A, MSEP, ANAFX, ACAX3, C3-C4, ESRCRP, TSHFX, VD25, CCP, RHF, URCA, HBSAG, HCV #### [facility] [address] [facility], [id number] RBC 5.16 x10^6ul Normal (4.70 - 6.10) [facility] Comment on above: Order Comment: FACIL ITY: [facility] - [id number] Performed By: #### C BC/2A, MSEP, ANAFX, ACAX3, C3-C4, ESRCRP, TSHFX, VD25, CCP, RHF, URCA, HBSAG, HCV #### [facility] [address] [facility], [address] WBC 9.64 x10^3ul Normal (3.80 - 10.60) [facility] Comment on above: Order Comment: FACIL ITY: [facility] - [id number] Performed By: #### C BC/2A, MSEP, ANAFX, ACAX3, C3-C4, ESRCRP, TSHFX, VD25, CCP, RHF, URCA, HBSAG, HCV #### [facility] [address] [facility], [address] SED RATE - CRPon 01-23-2023 CRP EXTENDED RANGE 2.76 MG/L Normal (0.00 - 3.20) [facility] Comment on above: Performed By: #### C BC/2A, MSEP, ANAFX, ACAX3, C3-C4, ESRCRP, TSHFX, VD25, CCP, RHF, URCA, HBSAG, HCV #### [facility] [address] [facility], [address] SED RATE WEST. 15 MM/HR Normal (0 - 24) [facility] Comment on above: Performed By: #### C BC/2A, MSEP, ANAFX, ACAX3, C3-C4, ESRCRP, TSHFX, VD25, CCP, RHF, URCA, HBSAG, HCV #### [facility] [address] [facility], [id number] VITAMIN D, 25 HYDROXYon 01-05 VITAMIN D, 25 51.3 NG/ML Normal (30.0 - 100.0) [facility] Comment on above: Result Comment: * * * VITAMIN D, 25 HYDROXY GENERAL GUIDELINE * * * DEFICIENCY = < OR = 20.0 NG/ML INSUFFICIENCY = 20.1 - 29.9 NG/ML SUFFICIENCY = 30.0 - 100.0 NG/ML TOXICITY = > 100.1 NG/ML Performed By: #### C BC/2A, MSEP, ANAFX, ACAX3, C3-C4, ESRCRP, TSHFX, VD25, CCP, RHF, URCA, HBSAG, HCV #### [facility] [address] [facility], [id number] Office Visiton 12-18-2022 Follow-up visit [id number] Bipin Ulloa 1955 M Date Provider Department Center 12/18/2022 MARCIANO MEZA [facility] Family History Problem Relation Age of Onset Heart failure Father Coronary artery disease Father Family Status - Relation Status Age at Father Level of Service:94340 MI OFFICE/OUTPATIENT ESTABLISHED LOW MDM 20-29 MIN Normal [facility] FREE T3on 12-04-2022 FREE T3 2.98 pg/mlL Normal 2.18-3.98 [facility] Comment on above: Performed By: #### S EDR #### [facility] [address] [place] [address] Dr. Wilmer Francis FREE T4on 12-04-2022 Free T4 [Mass/Vol] 1.25 ng/dL Normal 0.76-1.46 [facility] Comment on above: Performed By: #### B WAISTLINE JOINER OVERLOCK #### [facility] [address] [place] [address] Dr. Wilmer Francis LIPID PROFILEon 12-04-2022 CHOL-HDL RATIO NORM SEE BELOW Normal [facility] Comment on above: Result Comment: 3.3 - 4.4 LOW RISK 4.4 - 7.1 AVERAGE RISK 7.1 - 11.0 MODERATE RISK >11.0 HIGH RISK Performed By: #### S EDR #### [facility] [address] [address] [address] Wilmer Francis Cholesterol [Mass/Vol] 137 mg/dL Normal <=200 [facility] Comment on above: Performed By: #### S EDR #### [facility] [address] [address] [address] Wilmer Francis Cholesterol in HDL [Mass/Vol] 53 mg/dL Normal 40-60 [facility] Comment on above: Performed By: #### S EDR #### [facility] [address] [address] [address] Wilmer Francis Cholesterol in LDL [Mass/Vol] 66.2 mg/dL Normal [facility] Comment on above: Performed By: #### S EDR #### [facility] [address] [address] [address] Wilmer Francis Cholesterol.total/Cholestero l in HDL [Mass ratio] 2.6 {ratio} Normal [facility] Comment on above: Performed By: #### S EDR #### [facility] [address] [address] [address] Wilmer Francis HDL NORMAL > or = 60 mg/dl - LO W CARDIOVASCULAR RISK <40 mg/dl - HIGH CARDIOVASCULAR RISK Normal [facility] Comment on above: Performed By: #### S EDR #### [facility] [address] [address] [address] Wilmer Francis LDL CALC NORMAL SEE BELOW Normal [facility] Comment on above: Result Comment: <100 mg/dl OPTIMAL 100 - 129 mg/dl NEAR OR ABOVE OPTIMAL 130 - 159 mg/dl BORDERLINE HIGH 160 - 189 mg/dl HIGH >190 mg/dl VERY HIGH Performed By: #### S EDR #### [facility] [address] [address] [address] Wilmer Francis Triglyceride [Mass/Vol] 89 mg/dL Normal <=150 T [facility] Comment on above: Performed By: #### S EDR #### [facility] [address] [address] [address] Wilmer Francis VLDL CALC 17.8 mg/dL Normal [facility] Comment on above: Performed By: #### S EDR #### [facility] [address] [address] [address] Wilmer Francis PROF 14(COMP METB)on 023 Albumin [Mass/Vol] 3.5 g/dL Normal 3.4-5.0 [facility] Comment on above: Performed By: #### S EDR #### [facility] [address] [place] [address] Dr. Wilmer Francis Albumin/Globulin [Mass ratio] 0.9 {ratio} Normal [facility] Comment on above: Performed By: #### S EDR #### [facility] [address] [place] [address] Dr. Wilmer Francis ALP [Catalytic activity/Vol] 76 U/L Normal 46-116 [facility] Comment on above: Performed By: #### S EDR #### [facility] [address] [place] [address] Dr. Wilmer Francis ALT [Catalytic activity/Vol] 25 U/L Normal 16-63 [facility] Comment on above: Performed By: #### S EDR #### [facility] [address] [address] [address] Wilmer Francis Anion gap [Moles/Vol] 12.6 mmol/L Normal [facility] Comment on above: Performed By: #### S EDR #### [facility] [address] [address] [address] Wilmer Francis AST [Catalytic activity/Vol] 17 U/L Normal 15-37 [facility] Comment on above: Performed By: #### S EDR #### [facility] [address] [place] [address] Dr. Wilmer Francis Bilirubin [Mass/Vol] 0.4 mg/dL Normal 0.2-1.0 [facility] Comment on above: Performed By: #### S EDR #### [facility] [address] [place] [address] Dr. Wilmer Francis Calcium [Mass/Vol] 9.5 mg/dL Normal 8.5-10.1 [facility] Comment on above: Performed By: #### S EDR #### [facility] [address] [place] [address] Dr. Wilmer Francis Chloride [Moles/Vol] 98 mmol/L Normal 98-107 [facility] Comment on above: Performed By: #### S EDR #### [facility] [address] [address] [address] Wilmer Francis CO2 [Moles/Vol] 31.0 mmol/L Normal 21.0-32.0 [facility] Comment on above: Performed By: #### S EDR #### [facility] [address] [address] [address] Wilmer Francis Creatinine [Mass/Vol] 1.13 mg/dL Normal 0.70-1.30 [facility] Comment on above: Performed By: #### S EDR #### [facility] [address] [address] [address] Wilmer Francis EGFR-AF TURKISH >60 Normal >=60 [facility] Comment on above: Performed By: #### S EDR #### [facility] [address] [address] [address] Wilmer Francis EGFR-NON AF TURKISH >60 Normal >=60 [facility] Comment on above: Performed By: #### S EDR #### [facility] [address] [address] [address] Wilmer Francis Globulin (S) [Mass/Vol] 4.1 g/dL Normal [facility] Comment on above: Performed By: #### S EDR #### [facility] [address] [address] [address] Wilmer Francis Glucose [Mass/Vol] 123 mg/dL Critically high 74-106 [facility] Comment on above: Performed By: #### S EDR #### [facility] [address] [address] [address] Wilmer Francis Potassium [Moles/Vol] 4.6 mmol/L Normal 3.5-5.1 [facility] Comment on above: Performed By: #### S EDR #### [facility] [address] [address] [address] Wilmer Francis Protein [Mass/Vol] 7.6 g/dL Normal 6.4-8.2 [facility] Comment on above: Performed By: #### S EDR #### [facility] [address] [address] [address] Wilmer Francis Sodium [Moles/Vol] 137 mmol/L Normal 136-145 [facility] Comment on above: Performed By: #### S EDR #### [facility] [address] [address] [address] Wilmer Francis Urea nitrogen [Mass/Vol] 14.0 mg/dL Normal 7.0-18.0 [facility] Comment on above: Performed By: #### S EDR #### [facility] [address] [place] [address] Dr. Wilmer Francis Urea nitrogen/Creatinine [Mass ratio] 12.4 mg/mg Normal [facility] Comment on above: Performed By: #### S EDR #### [facility] [address] [place] [address] Dr. Wilmer Francis TSHon 12-04-2022 TSH 0.479 uIU/mL Normal 0.358-3.740 [facility] Comment on above: Performed By: #### S EDR #### [facility] [address] [place] [address] Dr. Wilmer Francis ALBUMINon 11-28-2022 Albumin [Mass/Vol] 3.3 g/dL Critically low 3.4-5.0 [facility] Comment on above: Performed By: #### P RTELEC #### [facility] Laboratory [address] [place] [address] Dr. Wilmer Francis ALKALINE PHOSPHAon ALP [Catalytic activity/Vol] 72 U/L Normal 46-116 [facility] Comment on above: Performed By: #### P RTELEC #### [facility] [address] [place] [address] Dr. Wilmer Francis CBC AUTO DIFFon 11-28-2022 BASO # 0.1 103/ul Normal 0.0-0.1 [facility] Comment on above: Performed By: #### S EDR #### [facility] [address] [place] [address] Dr. Wilmer Francis Basophils/100 WBC (Bld) 0.7 % Normal 0.2-2.0 [facility] Comment on above: Performed By: #### S EDR #### [facility] [address] [place] [address] Dr. Wilmer Francis EO # 0.8 103/ul Critically high 0.0-0.7 [facility] Comment on above: Performed By: #### S EDR #### [facility] [address] [place], [place] [id number] Dr. Wilmer Francis Eosinophils/100 WBC (Bld) 9.1 % Critically high 0.9-7 .0 [facility] Comment on above: Performed By: #### S EDR #### [facility] [address] [place] [address] Dr. Wilmer Francis Erythrocyte distribution wid th (RBC) [Ratio] 13.9 % Normal 11.0-15.0 The [facility] Comment on above: Performed By: #### S EDR #### [facility] [address] [place] [address] Dr. Wilmer Francis Hematocrit (Bld) [Volume fraction] 39.4 % Critically low 42.0-54.0 [facility] Comment on above: Performed By: #### S EDR #### [facility] [address] [place] [address] Dr. Wilmer Francis Hemoglobin (Bld) [Mass/Vol] 13.2 g/dL Critically low 14.0 -18.0 [facility] Comment on above: Performed By: #### S EDR #### [facility] [address] [place] [address] Dr. Wilmer Francis IG # 0.11 10e3/ul Critically high 0.00-0.03 The [facility] Comment on above: Performed By: #### S EDR #### [facility] [address] [place] [address] Dr. Wilmer Francis IG % 1.3 % Critically high 0.0-0.5 [facility] Comment on above: Performed By: #### S EDR #### [facility] [address] [place] [address] Dr. Wilmer Francis LYMPH # 1.9 103/ul Normal 1.2-3.8 [facility] Comment on above: Performed By: #### S EDR #### [facility] [address] [place] [address] Dr. Wilmer Francis Lymphocytes/100 WBC (Bld) 21.8 % Normal 20.5-60.0 [facility] Comment on above: Performed By: #### S EDR #### [facility] [address] [place] [address] Dr. Wilmer Francis MANUAL DIFF REQ NO Normal [facility] Comment on above: Performed By: #### S EDR #### [facility] [address] [place] [address] Dr. Wilmer Francis MCH (RBC) [Entitic mass] 28.3 pg Normal 25.9-34.0 [facility] Comment on above: Performed By: #### S EDR #### [facility] [address] [place] [address] Dr. Wilmer Francis MCHC (RBC) [Mass/Vol] 33.5 g/dL Normal 29.9-35.2 [facility] Comment on above: Performed By: #### S EDR #### [facility] [address] [place] [address] Dr. Wilmer Francis MCV (RBC) [Entitic vol] 84.5 fL Normal 80.0-94.0 [facility] Comment on above: Performed By: #### S EDR #### [facility] [address] [place] [address] Dr. Wilmer Francis MONO # 0.9 103/ul Critically high 0.3-0.8 [facility] Comment on above: Performed By: #### S EDR #### [facility] [address] [place] [address] Dr. Wilmer Francis Monocytes/100 WBC (Bld) 9.9 % Normal 1.7-12.0 [facility] Comment on above: Performed By: #### S EDR #### [facility] [address] [place] [address] Dr. Wilmer Francis NEUT # 4.9 103/ul Normal 1.4-6.5 [facility] Comment on above: Performed By: #### S EDR #### [facility] [address] [place] [address] Dr. Wilmer Francis Neutrophils/100 WBC (Bld) 57.2 % Normal 43.0-75.0 [facility] Comment on above: Performed By: #### S EDR #### [facility] [address] [address] [address] Wilmer Francis Platelet mean volume (Bld) [Entitic vol] 8.3 fL Critically low 9.5-13.5 The [facility] Comment on above: Performed By: #### S EDR #### [facility] [address] [address] [address] Wilmer Francis PLT 329 103/ul Normal 150-450 [facility] Comment on above: Performed By: #### S EDR #### [facility] [address] [place] [address] Dr. Wilmer Francis RBC 4.66 106/ul Critically low 4.70-6.10 [facility] Comment on above: Performed By: #### S EDR #### [facility] [address] [place] [address] Dr. Wilmer Francis WBC 8.6 103/ul Normal 4.0-11.0 [facility] Comment on above: Performed By: #### S EDR #### [facility] [address] [place] [address] Dr. Wilmer Francis CREATININEon 11-28-2022 Creatinine [Mass/Vol] 1.00 mg/dL Normal 0.70-1.30 [facility] Comment on above: Performed By: #### P RTELEC #### [facility] [address] [place] [address] Dr. Wilmer Francis EGFR-AF TURKISH >60 Normal >=60 [facility] Comment on above: Performed By: #### P RTELEC #### [facility] [address] [place] [address] Dr. Wilmer Francis EGFR-NON AF TURKISH >60 Normal >=60 [facility] Comment on above: Performed By: #### P RTELEC #### [facility] [address] [place] [address] Dr. Wilmer Francis CRPon 11-28-2022 CRP 2.5 mg/dL Critically high <=1.0 [facility] Comment on above: Performed By: #### P RTELEC #### [facility] [address] [place] [address] Dr. Wilmer Francis SED RATE WESTERGRENon 2022 SED RATE 71 mm/hr Critically high <=20 [facility] Comment on above: Performed By: #### S EDR #### [facility] [address] [place] [address] Dr. Wilmer Francis SGOTon 11-28-2022 AST [Catalytic activity/Vol] 16 U/L Normal 15-37 [facility] Comment on above: Performed By: #### P RTELEC #### [facility] [address] [place] [address] Dr. Wilmer Francis SGPTon 11-28-2022 ALT [Catalytic activity/Vol] 27 U/L Normal 16-63 [facility] Comment on above: Performed By: #### P RTELEC #### [facility] [address] [place] [address] ORBIT WO CONon 10-31-2022 CT ORBIT WO CON EXAMINATION: CT ORBI T WO CON HISTORY: Pain of right eye COMPARISON: No relevant comparison available. TECHNIQUE: Multi-planar CT images were created without IV contrast. Dose reduction techniques were achieved by using automated exposure control and/or adjustment of mA and/or kV according to patient size and/or use of iterative reconstruction technique. FINDINGS: GLOBES: No asymmetry or visible mass. EXTRAOCULAR MUSCLES: No enlargement or asymmetry. INTRACONAL SPACE: No visible mass, normal retrobulbar fat. EXTRACONAL SPACE: No visible mass or inflammatory changes. SINUSES: No significant mucosal thickening or fluid. BONES: Intact bony orbit without evidence of fracture. OTHER: 5 mm deviation of the anterior nasal septum to the left. Soft tissue attenuation bilateral external auditory canals likely cerumen. IMPRESSION: No acute abnormality Electronically authenticated by: KEVIN STANLEY Date: 2022-10-31 09:47 Normal [facility] CT CHEST WO CONon 10-22-2022 CT CHEST WO CON EXAMINATION: CT CHES T WO CON HISTORY: Solitary nodule of lung ; follow-up COMPARISON: CT chest 07/16/2022, CTA chest 07/16/2021 TECHNIQUE: Axial, Coronal, and Sagittal images were created without the administration of IV contrast material. Dose reduction techniques were achieved by using automated exposure control and/or adjustment of mA and/or kV according to patient size and/or use of iterative reconstruction technique. FINDINGS: LUNGS: Stable, chronic mild discoid atelectasis or scarring within left lower lobe adjacent the diaphragm. No suspicious nodules or acute infiltrates. PLEURA: No mass, effusion, or pneumothorax. VASCULATURE: No abnormality. NAKITA: No mass or adenopathy. MEDIASTINUM: No mass or adenopathy. CARDIAC: No enlargement or pericardial thickening. AORTA: No aneurysm or dissection. CHEST WALL: No mass or axillary adenopathy. BONES: No bone lesion or fracture. LIMITED ABDOMEN: Stable small right renal cyst. Limited images of the upper abdomen. OTHER: Negative. IMPRESSION: 1. Clearing of previously seen small opacity within right lung apex and 10 mm opacity within medial left lung base. 2. Mild emphysematous changes throughout, and stable discoid atelectasis or scarring within right lung base. 3. No suspicious findings. Electronically authenticated by: GIAN MELENDEZ Date: 2022-10-22 12:17 Normal [facility] JUICE WITH REFLEX MELISSA TESTSon 09-09-2022 JUICE by HEp-2 CELLS Negative Normal (NEG - NEG) [facility] Comment on above: Performed By: #### C BC/2A, MSEP, ANAFX, ACAX3, C3-C4, ESRCRP, TSHFX, VD25, CCP, RHF, URCA, HBSAG, HCV #### [facility] [address] [facility], [address] JUICE TITER 1:40 Normal (<1:40 - 1:40) [facility] Comment on above: Performed By: #### C BC/2A, MSEP, ANAFX, ACAX3, C3-C4, ESRCRP, TSHFX, VD25, CCP, RHF, URCA, HBSAG, HCV #### [facility] [address] [facility], [address] MELISSA-6 REFLEXED NO Normal () [facility] Comment on above: Performed By: #### C BC/2A, MSEP, ANAFX, ACAX3, C3-C4, ESRCRP, TSHFX, VD25, CCP, RHF, URCA, HBSAG, HCV #### [facility] [facility], [id number] C3 AND C4on 09-09-2022 C 3 138 MG/DL Normal (88 - 165) [facility] Comment on above: Performed By: #### C BC/2A, MSEP, ANAFX, ACAX3, C3-C4, ESRCRP, TSHFX, VD25, CCP, RHF, URCA, HBSAG, HCV #### [facility] [address] [place] [address] [facility], [id number] C 4 21 MG/DL Normal (14 - 44) [facility] Comment on above: Performed By: #### C BC/2A, MSEP, ANAFX, ACAX3, C3-C4, ESRCRP, TSHFX, VD25, CCP, RHF, URCA, HBSAG, HCV #### [facility] [address] [place] [address] [facility], [id number] CARDIOLIPIN IGG, IGA, IGMon 09-09-2022 JAVON, IgA 3.1 U/mL Low (14.0 - 20.0) [facility] Comment on above: Performed By: #### C BC/2A, MSEP, ANAFX, ACAX3, C3-C4, ESRCRP, TSHFX, VD25, CCP, RHF, URCA, HBSAG, HCV #### [facility] [address] [place] [address] [facility], [id number] JAVON, IgG 1.0 U/mL Low (10.0 - 40.0) [facility] Comment on above: Performed By: #### C BC/2A, MSEP, ANAFX, ACAX3, C3-C4, ESRCRP, TSHFX, VD25, CCP, RHF, URCA, HBSAG, HCV #### [facility] [address] [place] [address] [facility], [id number] JAVON, IgM 3.3 U/mL Low (10.0 - 40.0) [facility] ic Comment on above: Performed By: #### C BC/2A, MSEP, ANAFX, ACAX3, C3-C4, ESRCRP, TSHFX, VD25, CCP, RHF, URCA, HBSAG, HCV #### [facility] [address] [facility], [id number] CBC, ALB, ALT, AST, ALK AND CREAon 09-09-2022 Albumin [Mass/Vol] 4.4 g/dL Normal (3.5 - 5.0) [facility] Comment on above: Order Comment: FACIL ITY: [facility] [id number] Performed By: #### C BC/2A, MSEP, ANAFX, ACAX3, C3-C4, ESRCRP, TSHFX, VD25, CCP, RHF, URCA, HBSAG, HCV #### [facility] [address] [facility], [id number] ALK PHOS 102 U/L Normal (38 - 126) [facility] Comment on above: Order Comment: FACIL ITY: [facility] [id number] Performed By: #### C BC/2A, MSEP, ANAFX, ACAX3, C3-C4, ESRCRP, TSHFX, VD25, CCP, RHF, URCA, HBSAG, HCV #### [facility] [address] [facility], [id number] ALT [Catalytic activity/Vol] 26 U/L Normal (1 - 45 ) [facility] Comment on above: Order Comment: FACIL ITY: [facility] [id number] Performed By: #### C BC/2A, MSEP, ANAFX, ACAX3, C3-C4, ESRCRP, TSHFX, VD25, CCP, RHF, URCA, HBSAG, HCV #### [facility] [address] [facility], [address] AST [Catalytic activity/Vol] 24 U/L Normal (15 - 4 6) [facility] Comment on above: Order Comment: FACIL ITY: [facility] [id number] Performed By: #### C BC/2A, MSEP, ANAFX, ACAX3, C3-C4, ESRCRP, TSHFX, VD25, CCP, RHF, URCA, HBSAG, HCV #### [facility] [address] [facility], [address] Creatinine [Mass/Vol] 0.56 mg/dL Low (0.66 - 1.25) [facility] Comment on above: Order Comment: FACIL ITY: [facility] [id number] Performed By: #### C BC/2A, MSEP, ANAFX, ACAX3, C3-C4, ESRCRP, TSHFX, VD25, CCP, RHF, URCA, HBSAG, HCV #### [facility] [address] [facility], [address] GFR- AMER 176.6 ML/M1.7 High (60.0 - 161.8) [facility] Comment on above: Order Comment: FACIL ITY: [facility] [id number] Performed By: #### C BC/2A, MSEP, ANAFX, ACAX3, C3-C4, ESRCRP, TSHFX, VD25, CCP, RHF, URCA, HBSAG, HCV #### [facility] [address] [facility], [address] GFR-NON AFRIC-AMER 146.0 ML/M1.7 High (60.0 - 133.8) [facility] Comment on above: Order Comment: FACIL ITY: [facility] [id number] Performed By: #### C BC/2A, MSEP, ANAFX, ACAX3, C3-C4, ESRCRP, TSHFX, VD25, CCP, RHF, URCA, HBSAG, HCV #### [facility] [address] [facility], [address] Hematocrit (Bld) [Volume fraction] 42.5 % Normal ( 42.0 - 52.0) [facility] Comment on above: Order Comment: FACIL ITY: [facility] [id number] Performed By: #### C BC/2A, MSEP, ANAFX, ACAX3, C3-C4, ESRCRP, TSHFX, VD25, CCP, RHF, URCA, HBSAG, HCV #### [facility] [address] [facility], [address] Hemoglobin (Bld) [Mass/Vol] 14.1 g/dL Normal (14.0 - 18.0) [facility] Comment on above: Order Comment: FACIL ITY: [facility] [id number] Performed By: #### C BC/2A, MSEP, ANAFX, ACAX3, C3-C4, ESRCRP, TSHFX, VD25, CCP, RHF, URCA, HBSAG, HCV #### [facility] [address] [facility], [address] MCH (RBC) [Entitic mass] 29.3 pg Normal (27.0 - 33. 0) [facility] Comment on above: Order Comment: FACIL ITY: [facility] [id number] Performed By: #### C BC/2A, MSEP, ANAFX, ACAX3, C3-C4, ESRCRP, TSHFX, VD25, CCP, RHF, URCA, HBSAG, HCV #### [facility] [address] [facility], [address] MCHC (RBC) [Mass/Vol] 33.2 g/dL Normal (30.0 - 37.0) [facility] Comment on above: Order Comment: FACIL ITY: [facility] [id number] Performed By: #### C BC/2A, MSEP, ANAFX, ACAX3, C3-C4, ESRCRP, TSHFX, VD25, CCP, RHF, URCA, HBSAG, HCV #### [facility] [address] [facility], [address] MCV (RBC) [Entitic vol] 88.2 fL Normal (80.0 - 94.0 ) [facility] Comment on above: Order Comment: FACIL ITY: [facility] [id number] Performed By: #### C BC/2A, MSEP, ANAFX, ACAX3, C3-C4, ESRCRP, TSHFX, VD25, CCP, RHF, URCA, HBSAG, HCV #### [facility] [address] [facility], [id number] PLT 278 x10^3ul Normal (130 - 400) [facility] Comment on above: Order Comment: FACIL ITY: [facility] [id number] Performed By: #### C BC/2A, MSEP, ANAFX, ACAX3, C3-C4, ESRCRP, TSHFX, VD25, CCP, RHF, URCA, HBSAG, HCV #### [facility] [address] [facility], [id number] RBC 4.82 x10^6ul Normal (4.70 - 6.10) [facility] Comment on above: Order Comment: FACIL ITY: [facility] [id number] Performed By: #### C BC/2A, MSEP, ANAFX, ACAX3, C3-C4, ESRCRP, TSHFX, VD25, CCP, RHF, URCA, HBSAG, HCV #### [facility] [address] [facility], [id number] WBC 7.43 x10^3ul Normal (3.80 - 10.60) [facility] Comment on above: Order Comment: FACIL ITY: [facility] [id number] Performed By: #### C BC/2A, MSEP, ANAFX, ACAX3, C3-C4, ESRCRP, TSHFX, VD25, CCP, RHF, URCA, HBSAG, HCV #### [facility] [address] [facility], [address] HEP B RICARDO AGon 09-09-2022 HEP B RICARDO AG Negative Normal (NEG - NEG) [facility] ic Comment on above: Performed By: #### C BC/2A, MSEP, ANAFX, ACAX3, C3-C4, ESRCRP, TSHFX, VD25, CCP, RHF, URCA, HBSAG, HCV #### [facility] [address] [facility], [id number] HEP C ANTIBODYon 09-09-2022 HEPATITIS C ANTIBODY Negative Normal (NEG - NEG) [facility] Comment on above: Performed By: #### C BC/2A, MSEP, ANAFX, ACAX3, C3-C4, ESRCRP, TSHFX, VD25, CCP, RHF, URCA, HBSAG, HCV #### [facility] [address] [facility], [id number] RF FACTORon 09-09-2022 RF FACTOR 26 IU/ML High (0 - 12) [facility] Comment on above: Performed By: #### C BC/2A, MSEP, ANAFX, ACAX3, C3-C4, ESRCRP, TSHFX, VD25, CCP, RHF, URCA, HBSAG, HCV #### [facility] [address] [facility], [id number] SED RATE - CRPon 09-09-2022 CRP EXTENDED RANGE 7.36 MG/L High (0.00 - 3.20) [facility] Comment on above: Performed By: #### C BC/2A, MSEP, ANAFX, ACAX3, C3-C4, ESRCRP, TSHFX, VD25, CCP, RHF, URCA, HBSAG, HCV #### [facility] [address] [facility], [id number] SED RATE WEST. 49 MM/HR High (0 - 24) [facility] Comment on above: Performed By: #### C BC/2A, MSEP, ANAFX, ACAX3, C3-C4, ESRCRP, TSHFX, VD25, CCP, RHF, URCA, HBSAG, HCV #### [facility] [address] [facility], [address] SERUM ELECT(M-PROTIEN)on Albumin [Mass/Vol] 4.8 g/dL Normal (3.5 - 5.0) [facility] Comment on above: Performed By: #### C BC/2A, MSEP, ANAFX, ACAX3, C3-C4, ESRCRP, TSHFX, VD25, CCP, RHF, URCA, HBSAG, HCV #### [facility] [address] [facility], [address] Albumin/Globulin [Mass ratio] 1.7 {ratio} Normal (1.2 - 2.2) [facility] Comment on above: Performed By: #### C BC/2A, MSEP, ANAFX, ACAX3, C3-C4, ESRCRP, TSHFX, VD25, CCP, RHF, URCA, HBSAG, HCV #### [facility] [address] [facility], [address] ALPHA 1 0.2 G/DL Normal (0.1 - 0.3) [facility] Comment on above: Performed By: #### C BC/2A, MSEP, ANAFX, ACAX3, C3-C4, ESRCRP, TSHFX, VD25, CCP, RHF, URCA, HBSAG, HCV #### [facility] [address] [facility], [address] ALPHA 2 1.1 G/DL Normal (0.2 - 1.1) [facility] Comment on above: Performed By: #### C BC/2A, MSEP, ANAFX, ACAX3, C3-C4, ESRCRP, TSHFX, VD25, CCP, RHF, URCA, HBSAG, HCV #### [facility] [address] [facility], [address] BETA 0.9 G/DL Normal (0.6 - 1.1) [facility] Comment on above: Performed By: #### C BC/2A, MSEP, ANAFX, ACAX3, C3-C4, ESRCRP, TSHFX, VD25, CCP, RHF, URCA, HBSAG, HCV #### [facility] [address] [facility], [address] GAMMA 0.7 G/DL Normal (0.5 - 1.5) [facility] Comment on above: Performed By: #### C BC/2A, MSEP, ANAFX, ACAX3, C3-C4, ESRCRP, TSHFX, VD25, CCP, RHF, URCA, HBSAG, HCV #### [facility] [address] [facility], [address] Globulin (S) [Mass/Vol] 2.8 g/dL Normal (2.3 - 3.5) [facility] Comment on above: Performed By: #### C BC/2A, MSEP, ANAFX, ACAX3, C3-C4, ESRCRP, TSHFX, VD25, CCP, RHF, URCA, HBSAG, HCV #### [facility] [address] [facility], [address] Protein [Mass/Vol] 7.6 g/dL Normal (6.3 - 8.2) [facility] Comment on above: Performed By: #### C BC/2A, MSEP, ANAFX, ACAX3, C3-C4, ESRCRP, TSHFX, VD25, CCP, RHF, URCA, HBSAG, HCV #### [facility] [address] [facility], [address] Protein [Mass/Vol] 0.0 g/dL Normal (0.0 - 0.01) [facility] Comment on above: Result Comment: AN A PPARENT NORMAL SERUM ELECTROPHORETIC PATTERN. Performed By: #### C BC/2A, MSEP, ANAFX, ACAX3, C3-C4, ESRCRP, TSHFX, VD25, CCP, RHF, URCA, HBSAG, HCV #### [facility] [address] [facility], [id number] TSH WITH REFLEXon 09-09-2022 REFLEX T4, FREE NO Normal () [facility] Comment on above: Performed By: #### C BC/2A, MSEP, ANAFX, ACAX3, C3-C4, ESRCRP, TSHFX, VD25, CCP, RHF, URCA, HBSAG, HCV #### [facility] [address] [facility], [id number] TSH Qn 0.961 m[IU]/L Normal (0.470 - 4.680) [facility] Comment on above: Performed By: #### C BC/2A, MSEP, ANAFX, ACAX3, C3-C4, ESRCRP, TSHFX, VD25, CCP, RHF, URCA, HBSAG, HCV #### [facility] [address] [facility], [id number] URIC ACIDon 09-09-2022 Urate [Mass/Vol] 7.0 mg/dL Normal (3.5 - 8.5) [facility] Comment on above: Performed By: #### C BC/2A, MSEP, ANAFX, ACAX3, C3-C4, ESRCRP, TSHFX, VD25, CCP, RHF, URCA, HBSAG, HCV #### [facility] [address] [facility], [id number] VITAMIN D, 25 HYDROXYon 0 VITAMIN D, 25 27.6 NG/ML Low (30.0 - 100.0) [facility] Comment on above: Result Comment: * * * VITAMIN D, 25 HYDROXY GENERAL GUIDELINE * * * DEFICIENCY = < OR = 20.0 NG/ML INSUFFICIENCY = 20.1 - 29.9 NG/ML SUFFICIENCY = 30.0 - 100.0 NG/ML TOXICITY = > 100.1 NG/ML Performed By: #### C BC/2A, MSEP, ANAFX, ACAX3, C3-C4, ESRCRP, TSHFX, VD25, CCP, RHF, URCA, HBSAG, HCV #### [facility] [address] [facility], [address] US TUUT DOP LEG BILon 023 US TUTU DOP LEG CHAD EXAMINATION: US TUTU DOP LEG CHAD HISTORY: Localized edema COMPARISON: No relevant comparison available. TECHNIQUE: Grayscale, color and Doppler FINDINGS: Region: Bilateral legs Thrombus: None Flow: Normal Compressibility: Normal Augmentation: Normal IMPRESSION: No deep or superficial vein thrombus identified in the legs *Exam performed in accordance with [facility] practice guidelines- Peripheral venous ultrasound, September 30, 2009. Electronically authenticated by: KEVIN STANLEY Date: 2022-09-06 16:39 Normal [facility] CT LUNG CANCER SCREENINGon 0 07-16-2022 CT LUNG CANCER SCREENING EXAMINATION: CT LUNG CANCER SCREENING HISTORY: Nicotine dependence , shortness of breath COMPARISON: CT chest 07/16/2021 TECHNIQUE: Axial, Coronal, and Sagittal images were created without the administration of IV contrast material. Dose reduction techniques were achieved by using automated exposure control and/or adjustment of mA and/or kV according to patient size and/or use of iterative reconstruction technique. FINDINGS: LUNGS: Small patchy opacities within the medial right lung apex. Small amount of atelectasis versus consolidation within posterior right lung base adjacent diaphragm. New 10 mm opacity within posterior medial left lung base. Mild emphysematous changes. Marked elevation right hemidiaphragm. PLEURA: No mass, effusion, or pneumothorax. VASCULATURE: No abnormality. NAKITA: No mass or pathologic adenopathy. MEDIASTINUM: No mass or pathologic adenopathy. CARDIAC: No enlargement, pericardial thickening, or significant calcification. AORTA: No aneurysm or dissection. CHEST WALL: No mass or axillary adenopathy BONES: No bone lesion or fracture. LIMITED ABDOMEN: No suspicious findings. Limited images of the upper abdomen. OTHER: Negative. IMPRESSION: 1. Lung-RADS Category 3- Probably benign. Probably benign finding(s)- short term follow up suggested; includes nodules with a low likelihood of becoming a clinically active cancer. Six month LDCT. 2. Opacities within right and left lung, favoring infectious infiltrates. Interval decrease in amount of atelectasis or consolidation within posterior right lung base. Electronically authenticated by: GIAN MELENDEZ Date: 2022-07-16 10:02 Normal [facility] FREE T3on 07-16-2022 FREE T3 2.97 pg/mlL Normal 2.18-3.98 [facility] Comment on above: Performed By: #### T SH, CRP #### [facility] [address] [place] [address] Dr. Wilmer Francis FREE T4on 07-16-2022 Free T4 [Mass/Vol] 1.15 ng/dL Normal 0.76-1.46 [facility] Comment on above: Performed By: #### T SH, CRP #### [facility] [address] [address] [address] Wilmer Francis LIPID PROFILEon 07-16-2022 CHOL-HDL RATIO NORM SEE BELOW Normal [facility] Comment on above: Result Comment: 3.3 - 4.4 LOW RISK 4.4 - 7.1 AVERAGE RISK 7.1 - 11.0 MODERATE RISK >11.0 HIGH RISK Performed By: #### B WAISTLINE JOINER OVERLOCK #### [facility] [address] [place] [address] Dr. Wilmer Francis Cholesterol [Mass/Vol] 131 mg/dL Normal <=200 [facility] Comment on above: Performed By: #### B WAISTLINE JOINER OVERLOCK #### [facility] [address] [place] [address] Dr. Wilmer Francis Cholesterol in HDL [Mass/Vol] 58 mg/dL Normal 40-60 [facility] Comment on above: Performed By: #### B WAISTLINE JOINER OVERLOCK #### [facility] [address] [address] [address] Wilmer Francis Cholesterol in LDL [Mass/Vol] 57.2 mg/dL Normal [facility] Comment on above: Performed By: #### B WAISTLINE JOINER OVERLOCK #### [facility] [address] [address] [address] Wilmer Francis Cholesterol.total/Cholestero l in HDL [Mass ratio] 2.3 {ratio} Normal [facility] Comment on above: Performed By: #### B WAISTLINE JOINER OVERLOCK #### [facility] [address] [place] [address] Dr. Wilmer Francis HDL NORMAL > or = 60 mg/dl - LO W CARDIOVASCULAR RISK <40 mg/dl - HIGH CARDIOVASCULAR RISK Normal [facility] Comment on above: Performed By: #### B WAISTLINE JOINER OVERLOCK #### [facility] [address] [place] [address] Dr. Wilmer Francis LDL CALC NORMAL SEE BELOW Normal [facility] Comment on above: Result Comment: <100 mg/dl OPTIMAL 100 - 129 mg/dl NEAR OR ABOVE OPTIMAL 130 - 159 mg/dl BORDERLINE HIGH 160 - 189 mg/dl HIGH >190 mg/dl VERY HIGH Performed By: #### B WAISTLINE JOINER OVERLOCK #### [facility] [address] [place] [address] Dr. Wilmer Francis Triglyceride [Mass/Vol] 79 mg/dL Normal <=150 T [facility] Comment on above: Performed By: #### B WAISTLINE JOINER OVERLOCK #### [facility] [address] [place] [address] Dr. Wilmer Francis VLDL CALC 15.8 mg/dL Normal [facility] Comment on above: Performed By: #### B WAISTLINE JOINER OVERLOCK #### [facility] [address] [place] [address] Dr. Wilmer Francis PROF 14(COMP METB)on 023 Albumin [Mass/Vol] 3.2 g/dL Critically low 3.4-5.0 [facility] Comment on above: Performed By: #### B WAISTLINE JOINER OVERLOCK #### [facility] [address] [place] [address] Dr. Wilmer Francis Albumin/Globulin [Mass ratio] 0.7 {ratio} Normal [facility] Comment on above: Performed By: #### B WAISTLINE JOINER OVERLOCK #### [facility] [address] [place] [address] Dr. Wilmer Francis ALP [Catalytic activity/Vol] 75 U/L Normal 46-116 [facility] Comment on above: Performed By: #### B WAISTLINE JOINER OVERLOCK #### [facility] [address] [place] [address] Dr. Wilmer Francis ALT [Catalytic activity/Vol] 23 U/L Normal 16-63 [facility] Comment on above: Performed By: #### B WAISTLINE JOINER OVERLOCK #### [facility] [address] [place], [place] [id number] Dr. Wilmer Francis Anion gap [Moles/Vol] 11.7 mmol/L Normal [facility] Comment on above: Performed By: #### B WAISTLINE JOINER OVERLOCK #### [facility] [address] [place] [address] Dr. Wilmer Francis AST [Catalytic activity/Vol] 16 U/L Normal 15-37 [facility] Comment on above: Performed By: #### B WAISTLINE JOINER OVERLOCK #### [facility] [address] [address] [address] Wilmer Francis Bilirubin [Mass/Vol] 0.4 mg/dL Normal 0.2-1.0 [facility] Comment on above: Performed By: #### B WAISTLINE JOINER OVERLOCK #### [facility] [address] [place] [address] Dr. Wilmer Francis Calcium [Mass/Vol] 9.5 mg/dL Normal 8.5-10.1 [facility] Comment on above: Performed By: #### B WAISTLINE JOINER OVERLOCK #### [facility] [address] [place] [address] Dr. Wilmer Francis Chloride [Moles/Vol] 103 mmol/L Normal 98-107 [facility] Comment on above: Performed By: #### B WAISTLINE JOINER OVERLOCK #### [facility] [address] [place] [address] Dr. Wilmer Francis CO2 [Moles/Vol] 31.8 mmol/L Normal 21.0-32.0 [facility] Comment on above: Performed By: #### B WAISTLINE JOINER OVERLOCK #### [facility] [address] [place] [address] Dr. Wilmer Francis Creatinine [Mass/Vol] 0.80 mg/dL Normal 0.70-1.30 [facility] Comment on above: Performed By: #### B WAISTLINE JOINER OVERLOCK #### [facility] [address] [place] [address] Dr. Wilmer Francis EGFR-AF TURKISH >60 Normal >=60 [facility] Comment on above: Performed By: #### B WAISTLINE JOINER OVERLOCK #### [facility] [address] [place] [address] Dr. Wilmer Francis EGFR-NON AF TURKISH >60 Normal >=60 [facility] Comment on above: Performed By: #### B WAISTLINE JOINER OVERLOCK #### [facility] [address] [address] [address] Wilmer Francis Globulin (S) [Mass/Vol] 4.4 g/dL Normal [facility] Comment on above: Performed By: #### B WAISTLINE JOINER OVERLOCK #### [facility] [address] [address] [address] Wilmer Francis Glucose [Mass/Vol] 145 mg/dL Critically high 74-106 [facility] Comment on above: Performed By: #### B WAISTLINE JOINER OVERLOCK #### [facility] [address] [address] [address] Wilmer Francis Potassium [Moles/Vol] 4.5 mmol/L Normal 3.5-5.1 [facility] Comment on above: Performed By: #### B WAISTLINE JOINER OVERLOCK #### [facility] [address] [address] [address] Wilmer Francis Protein [Mass/Vol] 7.6 g/dL Normal 6.4-8.2 [facility] Comment on above: Performed By: #### B WAISTLINE JOINER OVERLOCK #### [facility] [address] [address] [address] Wilmer Francis Sodium [Moles/Vol] 142 mmol/L Normal 136-145 [facility] Comment on above: Performed By: #### B WAISTLINE JOINER OVERLOCK #### [facility] [address] [address] [address] Wilmer Francis Urea nitrogen [Mass/Vol] 12.0 mg/dL Normal 7.0-18.0 [facility] Comment on above: Performed By: #### B WAISTLINE JOINER OVERLOCK #### [facility] [address] [address] [address] Wilmer Francis Urea nitrogen/Creatinine [Mass ratio] 15.0 mg/mg Normal [facility] Comment on above: Performed By: #### B WAISTLINE JOINER OVERLOCK #### [facility] [address] [address] [address] Wilmer Francis TSHon 07-16-2022 TSH 0.770 uIU/mL Normal 0.358-3.740 [facility] Comment on above: Performed By: #### T SH, CRP #### [facility] [address] [place] [address] Dr. Wilmer Francis CBC AUTO DIFFon 06-22-2022 BASO # 0.0 103/ul Normal 0.0-0.1 [facility] Comment on above: Performed By: #### S EDR #### [facility] [address] [place] [address] Dr. Wilmer Francis Basophils/100 WBC (Bld) 0.1 % Critically low 0.2-2.0 [facility] Comment on above: Performed By: #### S EDR #### [facility] [address] [place] [address] Dr. Wilmer Francis EO # 0.0 103/ul Normal 0.0-0.7 [facility] Comment on above: Performed By: #### S EDR #### [facility] [address] [place] [address] Dr. Wilmer Francis Eosinophils/100 WBC (Bld) 0.0 % Critically low 0.9-7. 0 [facility] Comment on above: Performed By: #### S EDR #### [facility] [address] [place] [address] Dr. Wilmer Francis Erythrocyte distribution wid th (RBC) [Ratio] 12.7 % Normal 11.0-15.0 [facility] Comment on above: Performed By: #### S EDR #### [facility] [address] [place] [address] Dr. Wilmer Francis Hematocrit (Bld) [Volume fraction] 36.5 % Critically low 42.0-54.0 [facility] Comment on above: Performed By: #### S EDR #### [facility] [address] [place] [address] Dr. Wilmer Francis Hemoglobin (Bld) [Mass/Vol] 12.5 g/dL Critically low 14.0 -18.0 [facility] Comment on above: Performed By: #### S EDR #### [facility] [address] [address] [address] Wilmer Francis IG # 0.08 10e3/ul Critically high 0.00-0.03 [facility] Comment on above: Performed By: #### S EDR #### [facility] [address] [address] [address] Wilmer Francis IG % 0.6 % Critically high 0.0-0.5 [facility] Comment on above: Performed By: #### S EDR #### [facility] [address] [address] [address] Wilmer Francis LYMPH # 0.8 103/ul Critically low 1.2-3.8 [facility] Comment on above: Performed By: #### S EDR #### [facility] [address] [address] [address] Wilmer Francis Lymphocytes/100 WBC (Bld) 5.9 % Critically low 20.5-6 0.0 [facility] Comment on above: Performed By: #### S EDR #### [facility] [address] [address] [address] Wilmer Francis MANUAL DIFF REQ NO Normal [facility] Comment on above: Performed By: #### S EDR #### [facility] [address] [address] [address] Wilmer Francis MCH (RBC) [Entitic mass] 30.5 pg Normal 25.9-34.0 [facility] Comment on above: Performed By: #### S EDR #### [facility] [address] [address] [address] Wilmer Francis MCHC (RBC) [Mass/Vol] 34.2 g/dL Normal 29.9-35.2 [facility] Comment on above: Performed By: #### S EDR #### [facility] [address] [address] [address] Wilmer Francis MCV (RBC) [Entitic vol] 89.0 fL Normal 80.0-94.0 [facility] Comment on above: Performed By: #### S EDR #### [facility] [address] [address] [address] Wilmer Francis MONO # 0.8 103/ul Normal 0.3-0.8 [facility] Comment on above: Performed By: #### S EDR #### [facility] [address] [address] [address] Wilmer Francis Monocytes/100 WBC (Bld) 6.0 % Normal 1.7-12.0 [facility] Comment on above: Performed By: #### S EDR #### [facility] [address] [address] [address] Wilmer Francis NEUT # 11.3 103/ul Critically high 1.4-6.5 [facility] Comment on above: Performed By: #### S EDR #### [facility] [address] [address] [address] Wilmer Francis Neutrophils/100 WBC (Bld) 87.4 % Critically high 43.0- 75.0 [facility] Comment on above: Performed By: #### S EDR #### [facility] [address] [address] [address] Wilmer Francis Platelet mean volume (Bld) [Entitic vol] 9.1 fL Critically low 9.5-13.5 [facility] Comment on above: Performed By: #### S EDR #### [facility] [address] [place] [address] Dr. Wilmer Francis PLT 347 103/ul Normal 150-450 [facility] Comment on above: Performed By: #### S EDR #### [facility] [address] [address] [address] Wilmer Francis RBC 4.10 106/ul Critically low 4.70-6.10 [facility] Comment on above: Performed By: #### S EDR #### [facility] [address] [address] [address] Wilmer Francis WBC 13.0 103/ul Critically high 4.0-11.0 [facility] Comment on above: Performed By: #### S EDR #### [facility] [address] [address] [address] Wilmer Francis CRPon 06-22-2022 CRP 3.1 mg/dL Critically high <=1.0 [facility] Comment on above: Performed By: #### P RTELEC #### [facility] [address] [address] [address] Wilmer Francis PROF CHEM 8 (BAS METB)on Anion gap [Moles/Vol] 9.9 mmol/L Normal [facility] Comment on above: Performed By: #### T SH, CRP #### [facility] [address] [address] [address] Wilmer Francis Calcium [Mass/Vol] 9.7 mg/dL Normal 8.5-10.1 [facility] Comment on above: Performed By: #### T SH, CRP #### [facility] [address] [address] [address] Wilmer Francis Chloride [Moles/Vol] 97 mmol/L Critically low 98-107 [facility] Comment on above: Performed By: #### T SH, CRP #### [facility] [address] [address] [address] Wilmer Francis CO2 [Moles/Vol] 31.6 mmol/L Normal 21.0-32.0 [facility] Comment on above: Performed By: #### T SH, CRP #### [facility] [address] [address] [address] Wilmer Francis Creatinine [Mass/Vol] 0.91 mg/dL Normal 0.70-1.30 [facility] Comment on above: Performed By: #### T SH, CRP #### [facility] [address] [address] [address] Wilmer Francis EGFR-AF TURKISH >60 Normal >=60 [facility] Comment on above: Performed By: #### T SH, CRP #### [facility] [address] [address] [address] Wilmer Francis EGFR-NON AF TURKISH >60 Normal >=60 [facility] Comment on above: Performed By: #### T SH, CRP #### [facility] [address] [address] [address] Wilmer Francis Glucose [Mass/Vol] 222 mg/dL Critically high 74-106 [facility] Comment on above: Performed By: #### T SH, CRP #### [facility] [address] [address] [address] Wilmer Francis Potassium [Moles/Vol] 4.4 mmol/L Normal 3.5-5.1 [facility] Comment on above: Performed By: #### T SH, CRP #### [facility] [address] [address] [address] Wilmer Francis Sodium [Moles/Vol] 134 mmol/L Critically low 136-145 [facility] Comment on above: Performed By: #### T SH, CRP #### [facility] [address] [place] [address] Dr. Wilmer Francis Urea nitrogen [Mass/Vol] 19.0 mg/dL Critically high 7.0-18 .0 [facility] Comment on above: Performed By: #### T SH, CRP #### [facility] [address] [address] [address] Wilmer Francis Urea nitrogen/Creatinine [Mass ratio] 20.9 mg/mg Normal [facility] Comment on above: Performed By: #### T SH, CRP #### [facility] [address] [place] [address] Dr. Wilmer Francis Anion gap [Moles/Vol] 9.5 mmol/L Normal [facility] Comment on above: Performed By: #### P RTELEC #### [facility] [address] [address] [address] Wilmer Francis Calcium [Mass/Vol] 9.4 mg/dL Normal 8.5-10.1 [facility] Comment on above: Performed By: #### P RTELEC #### [facility] [address] [address] [address] Wilmer Francis Chloride [Moles/Vol] 99 mmol/L Normal 98-107 [facility] Comment on above: Performed By: #### P RTELEC #### [facility] [address] [address] [address] Wilmer Francis CO2 [Moles/Vol] 30.4 mmol/L Normal 21.0-32.0 [facility] Comment on above: Performed By: #### P RTELEC #### [facility] [address] [address] [address] Wilemr Francis Creatinine [Mass/Vol] 0.91 mg/dL Normal 0.70-1.30 [facility] Comment on above: Performed By: #### P RTELEC #### [facility] [address] [address] [address] Wilmer Francis EGFR-AF TURKISH >60 Normal >=60 [facility] Comment on above: Performed By: #### P RTELEC #### [facility] [address] [place] [address] Dr. Wilmer Francis EGFR-NON AF TURKISH >60 Normal >=60 [facility] Comment on above: Performed By: #### P RTELEC #### [facility] [address] [place] [address] Dr. Wilmer Francis Glucose [Mass/Vol] 266 mg/dL Critically high 74-106 T [facility] Comment on above: Performed By: #### P RTELEC #### [facility] [address] [address] [address] Wilmer Francis Potassium [Moles/Vol] 3.9 mmol/L Normal 3.5-5.1 [facility] Comment on above: Performed By: #### P RTELEC #### [facility] [address] [place] [address] Dr. Wilmer Francis Sodium [Moles/Vol] 135 mmol/L Critically low 136-145 [facility] Comment on above: Performed By: #### P RTELEC #### [facility] [address] [place] [address] Dr. Wilmer Francis Urea nitrogen [Mass/Vol] 21.0 mg/dL Critically high 7.0-18 .0 [facility] Comment on above: Performed By: #### P RTELEC #### [facility] [address] [address] [address] Wilmer Francis Urea nitrogen/Creatinine [Mass ratio] 23.1 mg/mg Normal [facility] Comment on above: Performed By: #### P RTELEC #### [facility] [address] [address] [address] Wilmer Francis Anion gap [Moles/Vol] 10.0 mmol/L Normal [facility] Comment on above: Performed By: #### S EDR #### [facility] [address] [address] [address] Wilmer Francis Calcium [Mass/Vol] 9.4 mg/dL Normal 8.5-10.1 [facility] Comment on above: Performed By: #### S EDR #### [facility] [address] [address] [address] Wilmer Francis Chloride [Moles/Vol] 97 mmol/L Critically low 98-107 [facility] Comment on above: Performed By: #### S EDR #### [facility] [address] [address] [address] Wilmer Francis CO2 [Moles/Vol] 28.9 mmol/L Normal 21.0-32.0 [facility] Comment on above: Performed By: #### S EDR #### [facility] [address] [address] [address] Wilmer Francis Creatinine [Mass/Vol] 1.19 mg/dL Normal 0.70-1.30 [facility] Comment on above: Performed By: #### S EDR #### [facility] [address] [place] [address] Dr. Wilmer Francis EGFR-AF TURKISH >60 Normal >=60 [facility] Comment on above: Performed By: #### S EDR #### [facility] [address] [address] [address] Wilmer Francis EGFR-NON AF TURKISH >60 Normal >=60 [facility] Comment on above: Performed By: #### S EDR #### [facility] [address] [address] [address] Wilmer Francis Glucose [Mass/Vol] 343 mg/dL Critically high 74-106 T [facility] Comment on above: Performed By: #### S EDR #### [facility] [address] [address] [address] Wilmer Francis Potassium [Moles/Vol] 3.9 mmol/L Normal 3.5-5.1 [facility] Comment on above: Performed By: #### S EDR #### [facility] [address] [address] [address] Wilmer Francis Sodium [Moles/Vol] 132 mmol/L Critically low 136-145 [facility] Comment on above: Performed By: #### S EDR #### [facility] [address] [address] [address] Wilmer Francis Urea nitrogen [Mass/Vol] 24.0 mg/dL Critically high 7.0-18 .0 [facility] Comment on above: Performed By: #### S EDR #### [facility] [address] [address] [address] Wilmer Francis Urea nitrogen/Creatinine [Mass ratio] 20.2 mg/mg Normal [facility] Comment on above: Performed By: #### S EDR #### [facility] [address] [address] [address] Wilmer Francis SED RATE [facility] 2021 SED RATE 74 mm/hr Critically high <=20 [facility] Comment on above: Performed By: #### T SH, CRP #### [facility] [address] [place] [address] Dr. Wilmer Francis JUICE by IFAon 06-21-2022 Antinuclear Antibodies, IFA Negative Normal [facility] Comment on above: Result Comment: Nega tive <1:80 Borderline 1:80 Positive >1:80 ICAP nomenclature: AC-0 For more information about Hep-2 cell patterns use ANApatterns.org, the official website for the International Consensus on Antinuclear Antibody (JUICE) Patterns (ICAP). Performed By: #### S EDR #### [facility] [address] [place] [address] Dr. Wilmer Francis CBC AUTO DIFFon 06-21-2022 BASO # 0.0 103/ul Normal 0.0-0.1 [facility] Comment on above: Performed By: #### R SV, INFLUAB #### [facility] [address] [place] [address] Dr. Wilmer Francis Basophils/100 WBC (Bld) 0.1 % Critically low 0.2-2.0 [facility] Comment on above: Performed By: #### R SV, INFLUAB #### [facility] [address] [place] [address] Dr. Wilmer Francis EO # 0.0 103/ul Normal 0.0-0.7 [facility] Comment on above: Performed By: #### R SV, INFLUAB #### [facility] [address] [place] [address] Dr. Wilmer Francis Eosinophils/100 WBC (Bld) 0.1 % Critically low 0.9-7. 0 [facility] Comment on above: Performed By: #### R SV, INFLUAB #### [facility] [address] [place] [address] Dr. Wilmer Francis Erythrocyte distribution wid th (RBC) [Ratio] 12.5 % Normal 11.0-15.0 [facility] Comment on above: Performed By: #### R SV, INFLUAB #### [facility] [address] [place] [address] Dr. Wilmer Francis Hematocrit (Bld) [Volume fraction] 36.6 % Critically low 42.0-54.0 [facility] Comment on above: Performed By: #### R SV, INFLUAB #### [facility] [address] [place] [address] Dr. Wilmer Francis Hemoglobin (Bld) [Mass/Vol] 12.5 g/dL Critically low 14.0 -18.0 [facility] Comment on above: Performed By: #### R SV, INFLUAB #### [facility] [address] [place] [address] Dr. Wilmer Francis IG # 0.13 10e3/ul Critically high 0.00-0.03 [facility] Comment on above: Performed By: #### R SV, INFLUAB #### [facility] [address] [place] [address] Dr. Wilmer Francis IG % 0.7 % Critically high 0.0-0.5 [facility] Comment on above: Performed By: #### R SV, INFLUAB #### [facility] [address] [place] [address] Dr. Wilmer Francis LYMPH # 0.6 103/ul Critically low 1.2-3.8 [facility] Comment on above: Performed By: #### R SV, INFLUAB #### [facility] [address] [place] [address] Dr. Wilmer Francis Lymphocytes/100 WBC (Bld) 3.3 % Critically low 20.5-6 0.0 [facility] Comment on above: Performed By: #### R SV, INFLUAB #### [facility] [address] [place] [address] Dr. Wilmer Francis MANUAL DIFF REQ NO Normal [facility] Comment on above: Performed By: #### R SV, INFLUAB #### [facility] [address] [place] [address] Dr. Wilmer Francis MCH (RBC) [Entitic mass] 30.6 pg Normal 25.9-34.0 [facility] Comment on above: Performed By: #### R SV, INFLUAB #### [facility] [address] [place] [address] Dr. Wilmer Francis MCHC (RBC) [Mass/Vol] 34.2 g/dL Normal 29.9-35.2 [facility] Comment on above: Performed By: #### R SV, INFLUAB #### [facility] [address] [place] [address] Dr. Wilmer Francis MCV (RBC) [Entitic vol] 89.5 fL Normal 80.0-94.0 [facility] Comment on above: Performed By: #### R SV, INFLUAB #### [facility] [address] [place] [address] Dr. Wilmer Francis MONO # 1.1 103/ul Critically high 0.3-0.8 [facility] Comment on above: Performed By: #### R SV, INFLUAB #### [facility] [address] [place] [address] Dr. Wilmer Francis Monocytes/100 WBC (Bld) 5.7 % Normal 1.7-12.0 [facility] Comment on above: Performed By: #### R SV, INFLUAB #### [facility] [address] [place] [address] Dr. Wilmer Francis NEUT # 17.3 103/ul Critically high 1.4-6.5 [facility] Comment on above: Performed By: #### R SV, INFLUAB #### [facility] [address] [place] [address] Dr. Wilmer Francis Neutrophils/100 WBC (Bld) 90.1 % Critically high 43.0- 75.0 [facility] Comment on above: Performed By: #### R SV, INFLUAB #### [facility] [address] [place] [address] Dr. Wilmer Francis Platelet mean volume (Bld) [Entitic vol] 9.2 fL Critically low 9.5-13.5 [facility] Comment on above: Performed By: #### R SV, INFLUAB #### [facility] [address] [place] [address] Dr. Wilmer Francis PLT 318 103/ul Normal 150-450 [facility] Comment on above: Performed By: #### R SV, INFLUAB #### [facility] [address] [place] [address] Dr. Wilmer Francis RBC 4.09 106/ul Critically low 4.70-6.10 [facility] Comment on above: Performed By: #### R SV, INFLUAB #### [facility] [address] [place] [address] Dr. Wilmer Francis WBC 19.2 103/ul Critically high 4.0-11.0 [facility] Comment on above: Performed By: #### R SV, INFLUAB #### [facility] [address] [address] [address] Wilmer Francis CRPon 06-21-2022 CRP 7.3 mg/dL Critically high <=1.0 [facility] Comment on above: Performed By: #### T SH, CRP #### [facility] [address] [place] [address] Dr. Wilmer Francis OSMOLALITYon 06-21-2022 Osmolality [Osmolality] 254 mosm/kg Critically low 280-301 [facility] Comment on above: Performed By: #### T SH, CRP #### [facility] [address] [place] [address] Dr. Wilmer Francis OSMOLALITY URINEon Osmolality, Urine 558 mOsmol/kg Normal [facility] Comment on above: Result Comment: 24 h r : 300 - 900 Random: 50 - 1400 After 12hr fluid restriction: >850 Performed By: #### B WAISTLINE JOINER OVERLOCK #### [facility] [address] [place] [address] Dr. Wilmer Francis PROF CHEM 8 (BAS METB)on Anion gap [Moles/Vol] 10.6 mmol/L Normal [facility] Comment on above: Performed By: #### T SH, CRP #### [facility] [address] [place] [address] Dr. Wilmer Francis Calcium [Mass/Vol] 9.1 mg/dL Normal 8.5-10.1 [facility] Comment on above: Performed By: #### T SH, CRP #### [facility] [address] [place] [address] Dr. Wilmer Francis Chloride [Moles/Vol] 94 mmol/L Critically low 98-107 [facility] Comment on above: Performed By: #### T SH, CRP #### [facility] [address] [place] [address] Dr. Wilmer Francis CO2 [Moles/Vol] 28.5 mmol/L Normal 21.0-32.0 [facility] Comment on above: Performed By: #### T SH, CRP #### [facility] [address] [address] [address] Wilmer Francis Creatinine [Mass/Vol] 1.11 mg/dL Normal 0.70-1.30 [facility] Comment on above: Performed By: #### T SH, CRP #### [facility] [address] [address] [address] Wilmer Francis EGFR-AF TURKISH >60 Normal >=60 [facility] Comment on above: Performed By: #### T SH, CRP #### [facility] [address] [address] [address] Wilmer Francis EGFR-NON AF TURKISH >60 Normal >=60 [facility] Comment on above: Performed By: #### T SH, CRP #### [facility] [address] [address] [address] Wilmer Francis Glucose [Mass/Vol] 294 mg/dL Critically high 74-106 [facility] Comment on above: Performed By: #### T SH, CRP #### [facility] [address] [address] [address] Wilmer Francis Potassium [Moles/Vol] 4.1 mmol/L Normal 3.5-5.1 [facility] Comment on above: Performed By: #### T SH, CRP #### [facility] [address] [place] [address] Dr. Wilmer Francis Sodium [Moles/Vol] 129 mmol/L Critically low 136-145 [facility] Comment on above: Performed By: #### T SH, CRP #### [facility] [address] [address] [address] Wilmer Francis Urea nitrogen [Mass/Vol] 27.0 mg/dL Critically high 7.0-18 .0 [facility] Comment on above: Performed By: #### T SH, CRP #### [facility] [address] [place] [address] Dr. Wilmer Francis Urea nitrogen/Creatinine [Mass ratio] 24.3 mg/mg Normal [facility] Comment on above: Performed By: #### T SH, CRP #### [facility] [address] [place] [address] Dr. Wilmer Francis Anion gap [Moles/Vol] 11.7 mmol/L Normal [facility] Comment on above: Performed By: #### B MP #### [facility] [address] [address] [address] Wilmer Francis Calcium [Mass/Vol] 8.7 mg/dL Normal 8.5-10.1 [facility] Comment on above: Performed By: #### B MP #### [facility] [address] [address] [address] Wilmer Francis Chloride [Moles/Vol] 93 mmol/L Critically low 98-107 [facility] Comment on above: Performed By: #### B MP #### [facility] [address] [address] [address] Wilmer Francis CO2 [Moles/Vol] 25.4 mmol/L Normal 21.0-32.0 [facility] Comment on above: Performed By: #### B MP #### [facility] [address] [address] [address] Wilmer Francis Creatinine [Mass/Vol] 1.37 mg/dL Critically high 0.70-1.30 [facility] Comment on above: Performed By: #### B MP #### [facility] [address] [place] [address] Dr. Wilmer Francis EGFR-AF TURKISH >60 Normal >=60 [facility] Comment on above: Performed By: #### B MP #### [facility] [address] [address] [address] Wilmer Francis EGFR-NON AF TURKISH 52 mL/min/1.73m2 Critically low >=60 [facility] Comment on above: Performed By: #### B MP #### [facility] [address] [address] [address] Wilmer Francis Glucose [Mass/Vol] 398 mg/dL Critically high 74-106 [facility] Comment on above: Performed By: #### B MP #### [facility] [address] [address] [address] Wilmer Francis Potassium [Moles/Vol] 4.1 mmol/L Normal 3.5-5.1 [facility] Comment on above: Performed By: #### B MP #### [facility] [address] [place] [address] Dr. Wilmer Francis Sodium [Moles/Vol] 126 mmol/L Critically low 136-145 [facility] Comment on above: Performed By: #### B MP #### [facility] [address] [place] [address] Dr. Wilmer Francis Urea nitrogen [Mass/Vol] 28.0 mg/dL Critically high 7.0-18 .0 [facility] Comment on above: Performed By: #### B MP #### [facility] [address] [place] [address] Dr. Wilmer Francis Urea nitrogen/Creatinine [Mass ratio] 20.4 mg/mg Normal [facility] Comment on above: Performed By: #### B MP #### [facility] [address] [place] [address] Dr. Wilmer Francis [facility] 109 mm/hr Critically high <=20 [facility] Comment on above: Performed By: #### S EDR #### [facility] [address] [place] [address] Dr. Wilmer Francis CBC AUTO DIFFon 06-20-2022 BASO # 0.0 103/ul Normal 0.0-0.1 [facility] Comment on above: Performed By: #### T SH, CRP #### [facility] [address] [place] [address] Dr. Wilmer Francis Basophils/100 WBC (Bld) 0.1 % Critically low 0.2-2.0 [facility] Comment on above: Performed By: #### T SH, CRP #### [facility] [address] [place] [address] Dr. Wilmer Francis EO # 0.0 103/ul Normal 0.0-0.7 [facility] Comment on above: Performed By: #### T SH, CRP #### [facility] [address] [place], [place] [id number] Dr. Wilmer Francis Eosinophils/100 WBC (Bld) 0.0 % Critically low 0.9-7. 0 [facility] Comment on above: Performed By: #### T SH, CRP #### [facility] [address] [place] [address] Dr. Wilmer Francis Erythrocyte distribution wid th (RBC) [Ratio] 12.2 % Normal 11.0-15.0 [facility] Comment on above: Performed By: #### T SH, CRP #### [facility] [address] [place] [address] Dr. Wilmer Francis Hematocrit (Bld) [Volume fraction] 37.3 % Critically low 42.0-54.0 [facility] Comment on above: Performed By: #### T SH, CRP #### [facility] [address] [place] [address] Dr. Wilmer Francis Hemoglobin (Bld) [Mass/Vol] 12.7 g/dL Critically low 14.0 -18.0 [facility] Comment on above: Performed By: #### T SH, CRP #### [facility] [address] [place] [address] Dr. Wilmer Francis IG # 0.11 10e3/ul Critically high 0.00-0.03 [facility] Comment on above: Performed By: #### T SH, CRP #### [facility] [address] [place] [address] Dr. Wilmer Francis IG % 0.5 % Normal 0.0-0.5 [facility] Comment on above: Performed By: #### T SH, CRP #### [facility] [address] [place] [address] Dr. Wilmer Francis LYMPH # 0.9 103/ul Critically low 1.2-3.8 [facility] Comment on above: Performed By: #### T SH, CRP #### [facility] [address] [place] [address] Dr. Wilmer Francis Lymphocytes/100 WBC (Bld) 4.3 % Critically low 20.5-6 0.0 [facility] Comment on above: Performed By: #### T SH, CRP #### [facility] [address] [address] [address] Wilmer Francis MANUAL DIFF REQ NO Normal [facility] Comment on above: Performed By: #### T SH, CRP #### [facility] [address] [address] [address] Wilmer Francis MCH (RBC) [Entitic mass] 30.3 pg Normal 25.9-34.0 [facility] Comment on above: Performed By: #### T SH, CRP #### [facility] [address] [place] [address] Dr. Wilmer Francis MCHC (RBC) [Mass/Vol] 34.0 g/dL Normal 29.9-35.2 [facility] Comment on above: Performed By: #### T SH, CRP #### [facility] [address] [place] [address] Dr. Wilmer Francis MCV (RBC) [Entitic vol] 89.0 fL Normal 80.0-94.0 [facility] Comment on above: Performed By: #### T SH, CRP #### [facility] [address] [place] [address] Dr. Wilmer Francis MONO # 1.4 103/ul Critically high 0.3-0.8 [facility] Comment on above: Performed By: #### T SH, CRP #### [facility] [address] [place] [address] Dr. Wilmer Francis Monocytes/100 WBC (Bld) 6.2 % Normal 1.7-12.0 [facility] Comment on above: Performed By: #### T SH, CRP #### [facility] [address] [place] [address] Dr. Wilmer Francis NEUT # 19.6 103/ul Critically high 1.4-6.5 [facility] Comment on above: Performed By: #### T SH, CRP #### [facility] [address] [place] [address] Dr. Wilmer Francis Neutrophils/100 WBC (Bld) 88.9 % Critically high 43.0- 75.0 [facility] Comment on above: Performed By: #### T SH, CRP #### [facility] [address] [address] [address] Wilmer Francis Platelet mean volume (Bld) [Entitic vol] 9.3 fL Critically low 9.5-13.5 [facility] Comment on above: Performed By: #### T SH, CRP #### [facility] [address] [address] [address] Wilmer Francis PLT 311 103/ul Normal 150-450 [facility] Comment on above: Performed By: #### T SH, CRP #### [facility] [address] [place] [address] Dr. Wilmer Francis RBC 4.19 106/ul Critically low 4.70-6.10 [facility] Comment on above: Performed By: #### T SH, CRP #### [facility] [address] [place] [address] Dr. Wilmer Francis WBC 22.0 103/ul Critically high 4.0-11.0 [facility] Comment on above: Performed By: #### T SH, CRP #### [facility] [address] [place] [address] Dr. Wilmer Francis CRPon 06-20-2022 CRP 16.1 mg/dL Critically high <=1.0 [facility] Comment on above: Performed By: #### S EDR #### [facility] [address] [place] [address] Dr. Wilmer Francis PROF CHEM 8 (BAS METB)on Anion gap [Moles/Vol] 14.0 mmol/L Normal [facility] Comment on above: Performed By: #### B WAISTLINE JOINER OVERLOCK #### [facility] [address] [place] [address] Dr. Wilmer Francis Calcium [Mass/Vol] 9.0 mg/dL Normal 8.5-10.1 [facility] Comment on above: Performed By: #### B WAISTLINE JOINER OVERLOCK #### [facility] [address] [place] [address] Dr. Wilmer Francis Chloride [Moles/Vol] 90 mmol/L Critically low 98-107 [facility] Comment on above: Performed By: #### B WAISTLINE JOINER OVERLOCK #### [facility] [address] [place] [address] Dr. Wilmer Francis CO2 [Moles/Vol] 26.3 mmol/L Normal 21.0-32.0 [facility] Comment on above: Performed By: #### B WAISTLINE JOINER OVERLOCK #### [facility] [address] [place] [address] Dr. Wilmer Francis Creatinine [Mass/Vol] 1.24 mg/dL Normal 0.70-1.30 [facility] Comment on above: Performed By: #### B WAISTLINE JOINER OVERLOCK #### [facility] [address] [place] [address] Dr. Wilmer Francis EGFR-AF TURKISH >60 Normal >=60 [facility] Comment on above: Performed By: #### B WAISTLINE JOINER OVERLOCK #### [facility] [address] [place] [address] Dr. Wilmer Francis EGFR-NON AF TURKISH 58 mL/min/1.73m2 Critically low >=60 [facility] Comment on above: Performed By: #### B WAISTLINE JOINER OVERLOCK #### [facility] [address] [place] [address] Dr. Wilmer Francis Glucose [Mass/Vol] 274 mg/dL Critically high 74-106 [facility] Comment on above: Performed By: #### B WAISTLINE JOINER OVERLOCK #### [facility] [address] [place] [address] Dr. Wilmer Francis Potassium [Moles/Vol] 4.2 mmol/L Normal 3.5-5.1 [facility] Comment on above: Performed By: #### B WAISTLINE JOINER OVERLOCK #### [facility] [address] [place] [address] Dr. Wilmer Francis Sodium [Moles/Vol] 126 mmol/L Critically low 136-145 [facility] Comment on above: Performed By: #### B WAISTLINE JOINER OVERLOCK #### [facility] [address] [place] [address] Dr. Wilmer Francis Urea nitrogen [Mass/Vol] 20.0 mg/dL Critically high 7.0-18 .0 [facility] Comment on above: Performed By: #### B WAISTLINE JOINER OVERLOCK #### [facility] [address] [place] [address] Dr. Wilmer Francis Urea nitrogen/Creatinine [Mass ratio] 16.1 mg/mg Normal [facility] Comment on above: Performed By: #### B WAISTLINE JOINER OVERLOCK #### [facility] [address] [place] [address] Dr. Wilmer Francis Anion gap [Moles/Vol] 9.4 mmol/L Normal [facility] Comment on above: Performed By: #### S EDR #### [facility] [address] [place] [address] Dr. Wilmer Francis Calcium [Mass/Vol] 8.9 mg/dL Normal 8.5-10.1 [facility] Comment on above: Performed By: #### S EDR #### [facility] [address] [place] [address] Dr. Wilmer Francis Chloride [Moles/Vol] 90 mmol/L Critically low 98-107 [facility] Comment on above: Performed By: #### S EDR #### [facility] [address] [place] [address] Dr. Wilmer Francis CO2 [Moles/Vol] 28.8 mmol/L Normal 21.0-32.0 [facility] Comment on above: Performed By: #### S EDR #### [facility] [address] [place] [address] Dr. Wilmer Francis Creatinine [Mass/Vol] 0.93 mg/dL Normal 0.70-1.30 [facility] Comment on above: Performed By: #### S EDR #### [facility] [address] [place] [address] Dr. Wilmer Francis EGFR-AF TURKISH >60 Normal >=60 [facility] Comment on above: Performed By: #### S EDR #### [facility] [address] [place] [address] Dr. Wilmer Francis EGFR-NON AF TURKISH >60 Normal >=60 [facility] Comment on above: Performed By: #### S EDR #### [facility] [address] [address] [address] Wilmer Francis Glucose [Mass/Vol] 243 mg/dL Critically high 74-106 [facility] Comment on above: Performed By: #### S EDR #### [facility] [address] [address] [address] Wilmer Francis Potassium [Moles/Vol] 4.2 mmol/L Normal 3.5-5.1 [facility] Comment on above: Performed By: #### S EDR #### [facility] [address] [address] [address] Wilmer Francis Sodium [Moles/Vol] 124 mmol/L Critically low 136-145 [facility] Comment on above: Performed By: #### S EDR #### [facility] [address] [address] [address] Wilmer Francis Urea nitrogen [Mass/Vol] 21.0 mg/dL Critically high 7.0-18 .0 [facility] Comment on above: Performed By: #### S EDR #### [facility] [address] [address] [address] Wilmer Francis Urea nitrogen/Creatinine [Mass ratio] 22.6 mg/mg Normal [facility] Comment on above: Performed By: #### S EDR #### [facility] [address] [address] [address] Wilmer Francis Anion gap [Moles/Vol] 10.8 mmol/L Normal [facility] Comment on above: Performed By: #### T SH, CRP #### [facility] [address] [address] [address] Wilmer Francis Calcium [Mass/Vol] 8.6 mg/dL Normal 8.5-10.1 [facility] Comment on above: Performed By: #### T SH, CRP #### [facility] [address] [address] [address] Wilmer Francis Chloride [Moles/Vol] 88 mmol/L Critically low 98-107 [facility] [place] Comment on above: Performed By: #### T SH, CRP #### [facility] [address] [address] [address] Wilmer Francis CO2 [Moles/Vol] 27.3 mmol/L Normal 21.0-32.0 [facility] Comment on above: Performed By: #### T SH, CRP #### [facility] [address] [address] [address] Wilmer Francis Creatinine [Mass/Vol] 1.19 mg/dL Normal 0.70-1.30 [facility] [place] Comment on above: Performed By: #### T SH, CRP #### [facility] [address] [address] [address] Wilmer Francis EGFR-AF TURKISH >60 Normal >=60 [facility] Comment on above: Performed By: #### T SH, CRP #### [facility] [address] [address] [address] Wilmer Francis EGFR-NON AF TURKISH >60 Normal >=60 [facility] [place] Comment on above: Performed By: #### T SH, CRP #### [facility] [address] [address] [address] Wilmer Francis Glucose [Mass/Vol] 378 mg/dL Critically high 74-106 [facility] Comment on above: Performed By: #### T SH, CRP #### [facility] [address] [address] [address] Wilmer Francis Potassium [Moles/Vol] 4.1 mmol/L Normal 3.5-5.1 [facility] [place] Comment on above: Performed By: #### T SH, CRP #### [facility] [address] [address] [address] Wilmer Francis Sodium [Moles/Vol] 122 mmol/L Critically low 136-145 [facility] Comment on above: Performed By: #### T SH, CRP #### [facility] [address] [address] [address] Wilmer Francis Urea nitrogen [Mass/Vol] 21.0 mg/dL Critically high 7.0-18 .0 [facility] [place] Comment on above: Performed By: #### T SH, CRP #### [facility] [address] [place] [address] Dr. Wilmer Francis Urea nitrogen/Creatinine [Mass ratio] 17.6 mg/mg Normal [facility] [place] Comment on above: Performed By: #### T SH, CRP #### [facility] [address] [place] [address] Dr. Wilmer Francis PROTEIN ELECTROPHERESISon Albumin [Mass/Vol] 3.4 g/dL Normal 2.9-4.4 [facility] Comment on above: Performed By: #### P RTELEC #### [facility] [address] [place] [address] Dr. Wilmer Francis Albumin/Globulin [Mass ratio] 1.1 {ratio} Normal 0.7-1 .7 [facility] [place] Comment on above: Performed By: #### P RTELEC #### [facility] [address] [place] [address] Dr. Wilmer Francis Zswtg-3-Cllytatj 0.4 g/dL Normal 0.0-0.4 [facility] Comment on above: Performed By: #### P RTELEC #### [facility] [address] [place] [address] Dr. Wilmer Francis Jhrnn-4-Izrshrde 1.0 g/dL Normal 0.4-1.0 [facility] Comment on above: Performed By: #### P RTELEC #### [facility] [address] [place] [address] Dr. Wilmer Francis Beta Globulin 1.0 g/dL Normal 0.7-1.3 [facility] Comment on above: Performed By: #### P RTELEC #### [facility] [address] [place] [address] Dr. Wilmer Francis Gamma Globulin 0.7 g/dL Normal 0.4-1.8 [facility] Comment on above: Performed By: #### P RTELEC #### [facility] [address] [place] [address] Dr. Wilmer Francis Globulin (S) [Mass/Vol] 3.1 g/dL Normal 2.2-3.9 [facility] Comment on above: Performed By: #### P RTELEC #### [facility] [address] [address] [address] Wilmer Francis M-Antoine Comment: Normal Not Observed [facility] [place] Comment on above: Result Comment: SPE shows asymmetrical beta. Performed By: #### P RTELEC #### [facility] [address] [place] [address] Dr. Wilmer Francis PDF . Normal [facility] Comment on above: Performed By: #### P RTELEC #### [facility] [address] [place] [address] Dr. Wilmer Francis Please note: Comment Normal [facility] [place] Comment on above: Result Comment: Prot ein electrophoresis scan will follow via computer, mail, or sales agent trading stamps delivery. Performed By: #### P RTELEC #### [facility] [address] [place] [address] Dr. Wilmer Francis Protein [Mass/Vol] 6.5 g/dL Normal 6.0-8.5 [facility] Comment on above: Performed By: #### P RTELEC #### [facility] [address] [place] [address] Dr. Wilmer Francis RHEUMATOID FACTORon 06-20-20 22 RA Latex Turbid. 43.8 IU/mL Critically high <14.0 [facility] [place] Comment on above: Performed By: #### T SH, CRP #### [facility] [address] [place] [address] Dr. Wilmer Francis SED RATE WESTERGREN 2021 SED RATE 122 mm/hr Critically high <=20 [facility] Comment on above: Performed By: #### B WAISTLINE JOINER OVERLOCK #### [facility] [address] [place] [address] Dr. Wilmer Francis XR CHEST 2 Von 06-20-2022 XR CHEST 2 V EXAM: XR CHEST 2 V HISTORY: COUGH COMPARISON: 06/18/2022 TECHNIQUE: PA and lateral FINDINGS: LUNGS: No significant pulmonary parenchymal abnormalities. VASCULATURE: Moderately increased pulmonary vasculature. PLEURA: Elevated right hemidiaphragm stable CARDIAC: No cardiomegaly or cardiac silhouette abnormality. MEDIASTINUM: No visible mass or adenopathy. BONES: Moderate degenerative disc disease and spondylosis without visible acute abnormalities. OTHER: Negative. IMPRESSION: Pulmonary vascular congestion Electronically authenticated by: KEVIN STANLEY Date: 2022-06-20 12:34 Normal [facility] BNPon 06-19-2022 Natriuretic peptide B (Bld) [Mass/Vol] 246.0 pg/mL Normal <=900.0 [facility] pital Comment on above: Performed By: #### B WAISTLINE JOINER OVERLOCK #### [facility] [address] [place] [address] Dr. Wilmer Francis CARDIAC BIPIN 3-6on 2 CK [Catalytic activity/Vol] 76 U/L Normal 39-308 [facility] [place] Comment on above: Performed By: #### T SH, CRP #### [facility] [address] [place] [address] Dr. Wilmer Francis CK.MB [Mass/Vol] 2.18 ng/mL Normal <=3.60 [facility] Comment on above: Performed By: #### T SH, CRP #### [facility] [address] [place] [address] Dr. Wilmer Francis HSTROP 5.1 pg/mL Normal 4.0-76.1 [facility] Comment on above: Result Comment: CUT- OFF POINTS HAVE BEEN ESTABLISHED BASED ON THE FOURTH UNIVERSAL DEFINITIONS OF MYOCARDIAL INFARCTION. THE UPPER REFERENCE LIMIT (URL) OF TROPONIN, DEFINED THE 99TH PERCENTILE OF cTnI DISTRIBUTION IN A REFERENCE POPULATION, HAS BEEN CONFIRMED THE DECISION THRESHOLD FOR VA DIAGNOSIS. Performed By: #### T SH, CRP #### [facility] [address] [place] [address] Dr. Wilmer Francis CK [Catalytic activity/Vol] 90 U/L Normal 39-308 [facility] Comment on above: Performed By: #### P RTELEC #### [facility] [address] [place] [address] Dr. Wilmer Francis CK.MB [Mass/Vol] 1.91 ng/mL Normal <=3.60 [facility] Comment on above: Performed By: #### P RTELEC #### [facility] [address] [place] [address] Dr. Wilmer Francis HSTROP 4.8 pg/mL Normal 4.0-76.1 [facility] Comment on above: Result Comment: CUT- OFF POINTS HAVE BEEN ESTABLISHED BASED ON THE FOURTH UNIVERSAL DEFINITIONS OF MYOCARDIAL INFARCTION. THE UPPER REFERENCE LIMIT (URL) OF TROPONIN, DEFINED THE 99TH PERCENTILE OF cTnI DISTRIBUTION IN A REFERENCE POPULATION, HAS BEEN CONFIRMED THE DECISION THRESHOLD FOR VA DIAGNOSIS. Performed By: #### P RTELEC #### [facility] [address] [place] [address] Dr. Wilmer Francis CARDIAC BIPIN ADMITon 022 CK [Catalytic activity/Vol] 86 U/L Normal 39-308 [facility] [place] Comment on above: Performed By: #### S EDR #### [facility] [address] [place] [address] Dr. Wilmer Francis CK.MB [Mass/Vol] 1.97 ng/mL Normal <=3.60 [facility] Comment on above: Performed By: #### S EDR #### [facility] [address] [place] [address] Dr. Wilmer Francis HSTROP 6.2 pg/mL Normal 4.0-76.1 [facility] Comment on above: Result Comment: CUT- OFF POINTS HAVE BEEN ESTABLISHED BASED ON THE FOURTH UNIVERSAL DEFINITIONS OF MYOCARDIAL INFARCTION. THE UPPER REFERENCE LIMIT (URL) OF TROPONIN, DEFINED THE 99TH PERCENTILE OF cTnI DISTRIBUTION IN A REFERENCE POPULATION, HAS BEEN CONFIRMED THE DECISION THRESHOLD FOR VA DIAGNOSIS. Performed By: #### S EDR #### [facility] [address] [place] [address] Dr. Wilmer Francis CHANTE 59 ng/mL Normal 16-96 [facility] Comment on above: Performed By: #### S EDR #### [facility] [address] [place] [address] Dr. Wilmer Francis CBC AUTO DIFFon 06-19-2022 BASO # 0.0 103/ul Normal 0.0-0.1 [facility] Comment on above: Performed By: #### B WAISTLINE JOINER OVERLOCK #### [facility] [address] [address] [address] Wilmer Francis Basophils/100 WBC (Bld) 0.1 % Critically low 0.2-2.0 [facility] Comment on above: Performed By: #### B WAISTLINE JOINER OVERLOCK #### [facility] [address] [place] [address] Dr. Wilmer Francis EO # 0.0 103/ul Normal 0.0-0.7 [facility] ostal Comment on above: Performed By: #### B WAISTLINE JOINER OVERLOCK #### [facility] [address] [place] [address] Dr. Wilmer Francis Eosinophils/100 WBC (Bld) 0.0 % Critically low 0.9-7. 0 [facility] Comment on above: Performed By: #### B WAISTLINE JOINER OVERLOCK #### [facility] [address] [place] [address] Dr. Wilmer Francis Erythrocyte distribution wid th (RBC) [Ratio] 12.2 % Normal 11.0-15.0 [facility] Comment on above: Performed By: #### B WAISTLINE JOINER OVERLOCK #### [facility] [address] [place] [address] Dr. Wilmer Francis Hematocrit (Bld) [Volume fraction] 38.3 % Critically low 42.0-54.0 [facility] Comment on above: Performed By: #### B WAISTLINE JOINER OVERLOCK #### [facility] [address] [place] [address] Dr. Wilmer Francis Hemoglobin (Bld) [Mass/Vol] 13.6 g/dL Critically low 14.0 -18.0 [facility] Comment on above: Performed By: #### B WAISTLINE JOINER OVERLOCK #### [facility] [address] [place] [address] Dr. Wilmer Francis IG # 0.10 10e3/ul Critically high 0.00-0.03 [facility] Comment on above: Performed By: #### B WAISTLINE JOINER OVERLOCK #### [facility] [address] [place] [address] Dr. Wilmer Francis IG % 0.7 % Critically high 0.0-0.5 [facility] Comment on above: Performed By: #### B WAISTLINE JOINER OVERLOCK #### [facility] [address] [address] [address] Wilmer Francis LYMPH # 0.8 103/ul Critically low 1.2-3.8 [facility] Comment on above: Performed By: #### B WAISTLINE JOINER OVERLOCK #### [facility] [address] [address] [address] Wilmer Francis Lymphocytes/100 WBC (Bld) 5.0 % Critically low 20.5-6 0.0 [facility] [place] Comment on above: Performed By: #### B WAISTLINE JOINER OVERLOCK #### [facility] [address] [address] [address] Wilmer Francis MANUAL DIFF REQ NO Normal [facility] Comment on above: Performed By: #### B WAISTLINE JOINER OVERLOCK #### [facility] [address] [place] [address] Dr. Wilmer Francis MCH (RBC) [Entitic mass] 30.8 pg Normal 25.9-34.0 [facility] Comment on above: Performed By: #### B WAISTLINE JOINER OVERLOCK #### [facility] [address] [place] [address] Dr. Wilmer Francis MCHC (RBC) [Mass/Vol] 35.5 g/dL Critically high 29.9-35.2 [facility] Comment on above: Performed By: #### B WAISTLINE JOINER OVERLOCK #### [facility] [address] [place] [address] Dr. Wilmer Francis MCV (RBC) [Entitic vol] 86.8 fL Normal 80.0-94.0 [facility] Comment on above: Performed By: #### B WAISTLINE JOINER OVERLOCK #### [facility] [address] [place] [address] Dr. Wilmer Francis MONO # 0.7 103/ul Normal 0.3-0.8 [facility] Comment on above: Performed By: #### B WAISTLINE JOINER OVERLOCK #### [facility] [address] [place] [address] Dr. Wilmer Francis Monocytes/100 WBC (Bld) 4.2 % Normal 1.7-12.0 [facility] Comment on above: Performed By: #### B WAISTLINE JOINER OVERLOCK #### [facility] [address] [address] [address] Wilmer Francis NEUT # 13.8 103/ul Critically high 1.4-6.5 [facility] Comment on above: Performed By: #### B WAISTLINE JOINER OVERLOCK #### [facility] [address] [address] [address] Wilmer Francis Neutrophils/100 WBC (Bld) 90.0 % Critically high 43.0- 75.0 [facility] Comment on above: Performed By: #### B WAISTLINE JOINER OVERLOCK #### [facility] [address] [address] [address] Wilmer Francis Platelet mean volume (Bld) [Entitic vol] 9.0 fL Critically low 9.5-13.5 [facility] Comment on above: Performed By: #### B WAISTLINE JOINER OVERLOCK #### [facility] [address] [address] [address] Wilmer Francis PLT 298 103/ul Normal 150-450 [facility] Comment on above: Performed By: #### B WAISTLINE JOINER OVERLOCK #### [facility] [address] [address] [address] Wilmer Francis RBC 4.41 106/ul Critically low 4.70-6.10 [facility] Comment on above: Performed By: #### B WAISTLINE JOINER OVERLOCK #### [facility] [address] [address] [address] Wilmer Francis WBC 15.3 103/ul Critically high 4.0-11.0 [facility] Comment on above: Performed By: #### B WAISTLINE JOINER OVERLOCK #### [facility] [address] [place] [address] Dr. Wilmer Francis CBC W MANUAL DIFFon 06-19-20 22 ATYPICAL LYMPH # Normal [facility] Comment on above: Performed By: #### S EDR #### [facility] [address] [address] [address] Wilmer Francis ATYPICAL LYMPH % Normal [facility] Comment on above: Performed By: #### S EDR #### [facility] [address] [place] [address] Dr. Wilmer Francis BAND # 0.0 103/ul Normal 0.0-0.3 [facility] Comment on above: Performed By: #### S EDR #### [facility] [address] [place] [address] Dr. Wilmer Francis BAND % 0 % Normal 0-5 [facility] Comment on above: Performed By: #### S EDR #### [facility] [address] [place] [address] Dr. Wilmer Francis BASOM # 0.00 103/ul Normal 0.00-0.10 [facility] Comment on above: Performed By: #### S EDR #### [facility] [address] [place] [address] Dr. Wilmer Francis BASOM % 0.0 % Critically low 0.2-2.0 [facility] Comment on above: Performed By: #### S EDR #### [facility] [address] [place] [address] Dr. Wilmer Francis BLAST # Normal [facility] Comment on above: Performed By: #### S EDR #### [facility] [address] [place] [address] Dr. Wilmer Francis BLAST % Normal [facility] Comment on above: Performed By: #### S EDR #### [facility] [address] [place] [address] Dr. Wilmer Francis CORRECTED WBC Normal 4.0-11.0 [facility] Comment on above: Performed By: #### S EDR #### [facility] [address] [place] [address] Dr. Wilmer Francis EOS # 0.15 103/ul Normal 0.00-0.70 [facility] Comment on above: Performed By: #### S EDR #### [facility] [address] [place] [address] Dr. Wilmer Francis EOS% 1.0 % Normal 0.9-7.0 [facility] Comment on above: Performed By: #### S EDR #### [facility] [address] [address] [address] Wilmer Francis HCT 38.7 % Critically low 42.0-54.0 [facility] Comment on above: Performed By: #### S EDR #### [facility] [address] [address] [address] Wilmer Francis HGB 13.8 g/dl Critically low 14.0-18.0 [facility] Comment on above: Performed By: #### S EDR #### [facility] [address] [address] [address] Wilmer Francis LYMPHM # 1.62 103/ul Normal 1.20-3.80 [facility] Comment on above: Performed By: #### S EDR #### [facility] [address] [place] [address] Dr. Wilmer Francis LYMPHM% 11.0 % Critically low 20.5-60.0 [facility] Comment on above: Performed By: #### S EDR #### [facility] [address] [place] [address] Dr. Wilmer Francis MCH 30.5 pg Normal 25.9-34.0 [facility] Comment on above: Performed By: #### S EDR #### [facility] [address] [place] [address] Dr. Wilmer Francis MCHC 35.7 g/dl Critically high 29.9-35.2 [facility] Comment on above: Performed By: #### S EDR #### [facility] [address] [place] [address] Dr. Wilmer Francis MCV 85.4 fL Normal 80.0-94.0 [facility] Comment on above: Performed By: #### S EDR #### [facility] [address] [place] [address] Dr. Wilmer Francis METAMYELOCYTE # Normal [facility] Comment on above: Performed By: #### S EDR #### [facility] [address] [place] [address] Dr. Wilmer Francis METAMYELOCYTE % Normal [facility] Comment on above: Performed By: #### S EDR #### [facility] [address] [place] [address] Dr. Wilmer Francis MONOM# 1.18 103/ul Critically high 0.30-0.80 [facility] Comment on above: Performed By: #### S EDR #### [facility] [address] [place] [address] Dr. Wilmer Francis MONOM% 8.0 % Normal 1.7-12.0 [facility] Comment on above: Performed By: #### S EDR #### [facility] [address] [place] [address] Dr. Wilmer Francis MPV 8.8 fL Critically low 9.5-13.5 [facility] Comment on above: Performed By: #### S EDR #### [facility] [address] [place] [address] Dr. Wilmer Francis MYELOCYTE # Normal [facility] Comment on above: Performed By: #### S EDR #### [facility] [address] [place] [address] Dr. Wilmer Francis MYELOCYTE % Normal [facility] Comment on above: Performed By: #### S EDR #### [facility] [address] [place] [address] Dr. Wilmer Francis NRBC Normal [facility] Comment on above: Performed By: #### S EDR #### [facility] [address] [place] [address] Dr. Wilmer Francis PLT 302 103/ul Normal 150-450 [facility] Comment on above: Performed By: #### S EDR #### [facility] [address] [place] [address] Dr. Wilmer Francis RBC 4.53 106/ul Critically low 4.70-6.10 [facility] Comment on above: Performed By: #### S EDR #### [facility] [address] [place] [address] Dr. Wilmer Francis RDW 12.1 % Normal 11.0-15.0 [facility] Comment on above: Performed By: #### S EDR #### [facility] [address] [place] [address] Dr. Wilmer Francis SEG # 11.76 103/ul Critically high 1.40-6.50 [facility] Comment on above: Performed By: #### S EDR #### [facility] [address] [place] [address] Dr. Wilmer Francis SEG % 80.0 % Critically high 43.0-75.0 [facility] Comment on above: Performed By: #### S EDR #### [facility] [address] [place] [address] Dr. Wilmer Francis WBC 14.7 103/ul Critically high 4.0-11.0 [facility] Comment on above: Performed By: #### S EDR #### [facility] [address] [place] [address] Dr. Wilmer Francis CREATININE URINEon URINE CREAT 179.57 mg/dL Normal 20.00-300.00 [facility] Comment on above: Performed By: #### S EDR #### [facility] [address] [place] [address] Dr. Wilmer Francis CRPon 06-19-2022 CRP 7.0 mg/dL Critically high <=1.0 [facility] Comment on above: Performed By: #### T SH, CRP #### [facility] [address] [place] [address] Dr. Wilmer Francis CRP 3.9 mg/dL Critically high <=1.0 [facility] Comment on above: Performed By: #### S EDR #### [facility] [address] [place] [address] Dr. Wilmer Francis [facility]06 SARS-CoV-2 (COVID-19) RNA ALAINA+probe Ql (Unsp spec) Not detected Normal NOT DETECTED [facility] Comment on above: Result Comment: When diagnostic testing is negative, the possibility of a false negative should be considered in the context of a patient's recent exposures and the presence of clinical signs and symptoms consistent with SARS-CoV-2. This test is not yet approved or cleared by the [place] FDA. When there are no FDA-approved or cleared tests available, and other criteria are met, FDA can make tests available under an emergency access mechanism called an Emergency Use Authorization (EUA). The EUA for this test is supported by the [place] of Health and Human Service's declaration that circumstances exist to justify the emergency use of in vitro diagnostics for the detection and/or diagnosis of the virus that causes COVID-19. This EUA will remain in effect for the duration of the COVID-19 declaration justifying emergency of IVDs, unless it is terminated or revoked by the FDA (after which the test may no longer be used). Performed By: #### T SH, CRP #### [facility] [address] [place] [address] Dr. Wilmer Francis INFLUENZA A AND B AGon 06-19 INFLUENZA A AG Negative Normal NEGATIVE SEE COMMENT [facility] Comment on above: Performed By: #### R SV, INFLUAB #### [facility] [address] [place] [address] Dr. Wilmer Francis INFLUENZA B AG Negative Normal NEGATIVE SEE COMMENT [facility] Comment on above: Performed By: #### R SV, INFLUAB #### [facility] [address] [place] [address] Dr. Wilmer Francis INTERNAL CONTROLS Within Normal Limits Normal Wi thin Normal Limits [facility] Comment on above: Performed By: #### R SV, INFLUAB #### [facility] [address] [place] [address] Dr. Wilmer Francis LACTATE/LACTIC ACIDon 2021 Lactate [Moles/Vol] 1.0 mmol/L Normal 0.4-1.9 [facility] Comment on above: Performed By: #### S EDR #### [facility] [address] [place] [address] Dr. Wilmer Francis Lactate [Moles/Vol] 0.9 mmol/L Normal 0.4-1.9 [facility] Comment on above: Performed By: #### B WAISTLINE JOINER OVERLOCK #### [facility] [address] [address] [address] Wilmer Francis MICROALBUMIN, RAND URon 06-06 mALB 1.6 mg/L Normal <=30.0 [facility] Comment on above: Performed By: #### S EDR #### [facility] [address] [address] [address] Wilmer Francis PROF CHEM 8 (BAS METB)on Anion gap [Moles/Vol] 13.7 mmol/L Normal [facility] Comment on above: Performed By: #### B MP #### [facility] [address] [place] [address] Dr. Wilmer Francis Calcium [Mass/Vol] 8.9 mg/dL Normal 8.5-10.1 [facility] Comment on above: Performed By: #### B MP #### [facility] [address] [address] [address] Wilmer Francis Chloride [Moles/Vol] 87 mmol/L Critically low 98-107 [facility] Comment on above: Performed By: #### B MP #### [facility] [address] [place] [address] Dr. Wilmer Francis CO2 [Moles/Vol] 28.6 mmol/L Normal 21.0-32.0 [facility] Comment on above: Performed By: #### B MP #### [facility] [address] [address] [address] Wilmer Francis Creatinine [Mass/Vol] 1.15 mg/dL Normal 0.70-1.30 [facility] Comment on above: Performed By: #### B MP #### [facility] [address] [place] [address] Dr. Wilmer Francis EGFR-AF TURKISH >60 Normal >=60 [facility] Comment on above: Performed By: #### B MP #### [facility] [address] [place] [address] Dr. Wilmer Francis EGFR-NON AF TURKISH >60 Normal >=60 [facility] Comment on above: Performed By: #### B MP #### [facility] [address] [address] [address] Wilmer Francis Glucose [Mass/Vol] 295 mg/dL Critically high 74-106 [facility] Comment on above: Performed By: #### B MP #### [facility] [address] [address] [address] Wilmer Francis Potassium [Moles/Vol] 4.2 mmol/L Normal 3.5-5.1 [facility] Comment on above: Performed By: #### B MP #### [facility] [address] [address] [address] Wilmer Francis Sodium [Moles/Vol] 124 mmol/L Critically low 136-145 [facility] Comment on above: Performed By: #### B MP #### [facility] [address] [address] [address] Wilmer Francis Urea nitrogen [Mass/Vol] 14.0 mg/dL Normal 7.0-18.0 [facility] Comment on above: Performed By: #### B MP #### [facility] [address] [address] [address] Wilmer Francis Urea nitrogen/Creatinine [Mass ratio] 12.2 mg/mg Normal [facility] Comment on above: Performed By: #### B MP #### [facility] [address] [address] [address] Wilmer Francis Anion gap [Moles/Vol] 11.1 mmol/L Normal [facility] Comment on above: Performed By: #### T SH, CRP #### [facility] [address] [address] [address] Wilmer Francis Calcium [Mass/Vol] 9.0 mg/dL Normal 8.5-10.1 [facility] Comment on above: Performed By: #### T SH, CRP #### [facility] [address] [address] [address] Wilmer Francis Chloride [Moles/Vol] 86 mmol/L Critically low 98-107 [facility] Comment on above: Performed By: #### T SH, CRP #### [facility] [address] [address] [address] Wilmer Francis CO2 [Moles/Vol] 28.2 mmol/L Normal 21.0-32.0 [facility] Comment on above: Performed By: #### T SH, CRP #### [facility] [address] [address] [address] Wilmer Francis Creatinine [Mass/Vol] 0.77 mg/dL Normal 0.70-1.30 [facility] Comment on above: Performed By: #### T SH, CRP #### [facility] [address] [address] [address] Wilmer Francis EGFR-AF TURKISH >60 Normal >=60 [facility] Comment on above: Performed By: #### T SH, CRP #### [facility] [address] [place] [address] Dr. Wilmer Francis EGFR-NON AF TURKISH >60 Normal >=60 [facility] Comment on above: Performed By: #### T SH, CRP #### [facility] [address] [address] [address] Wilmer Francis Glucose [Mass/Vol] 183 mg/dL Critically high 74-106 [facility] Comment on above: Performed By: #### T SH, CRP #### [facility] [address] [place] [address] Dr. Wilmer Francis Potassium [Moles/Vol] 4.3 mmol/L Normal 3.5-5.1 [facility] Comment on above: Performed By: #### T SH, CRP #### [facility] [address] [address] [address] Wilmer Francis Sodium [Moles/Vol] 122 mmol/L Critically low 136-145 [facility] Comment on above: Performed By: #### T SH, CRP #### [facility] [address] [address] [address] Wilmer Francis Urea nitrogen [Mass/Vol] 10.0 mg/dL Normal 7.0-18.0 [facility] Comment on above: Performed By: #### T SH, CRP #### [facility] [address] [address] [address] Wilmer Francis Urea nitrogen/Creatinine [Mass ratio] 13.0 mg/mg Normal [facility] Comment on above: Performed By: #### T SH, CRP #### [facility] [address] [address] [address] Wilmer Francis Anion gap [Moles/Vol] 9.0 mmol/L Normal [facility] Comment on above: Performed By: #### S EDR #### [facility] [address] [address] [address] Wilmer Francis Calcium [Mass/Vol] 9.2 mg/dL Normal 8.5-10.1 [facility] Comment on above: Performed By: #### S EDR #### [facility] [address] [address] [address] Wilmer Francis Chloride [Moles/Vol] 86 mmol/L Critically low 98-107 [facility] Comment on above: Performed By: #### S EDR #### [facility] [address] [address] [address] Wilmer Francis CO2 [Moles/Vol] 29.0 mmol/L Normal 21.0-32.0 [facility] Comment on above: Performed By: #### S EDR #### [facility] [address] [address] [address] Wilmer Francis Creatinine [Mass/Vol] 0.72 mg/dL Normal 0.70-1.30 [facility] Comment on above: Performed By: #### S EDR #### [facility] [address] [address] [address] Wilmer Francis EGFR-AF TURKISH >60 Normal >=60 [facility] Comment on above: Performed By: #### S EDR #### [facility] [address] [address] [address] Wilmer Francis EGFR-NON AF TURKISH >60 Normal >=60 [facility] Comment on above: Performed By: #### S EDR #### [facility] [address] [address] [address] Wilmer Francis Glucose [Mass/Vol] 135 mg/dL Critically high 74-106 [facility] Comment on above: Performed By: #### S EDR #### [facility] [address] [address] [address] Wilmer Francis Potassium [Moles/Vol] 4.0 mmol/L Normal 3.5-5.1 [facility] Comment on above: Performed By: #### S EDR #### [facility] [address] [address] [address] Wilmer Francis Sodium [Moles/Vol] 120 mmol/L Critically low 136-145 [facility] Comment on above: Performed By: #### S EDR #### [facility] [address] [address] [address] Wilmer Francis Urea nitrogen [Mass/Vol] 9.0 mg/dL Normal 7.0-18.0 [facility] Comment on above: Performed By: #### S EDR #### [facility] [address] [address] [address] Wilmer Francis Urea nitrogen/Creatinine [Mass ratio] 12.5 mg/mg Normal [facility] Comment on above: Performed By: #### S EDR #### [facility] [address] [address] [address] Wilmer Francis RSVon 06-19-2022 RSV AG Negative Normal NEGATIVE [facility] Comment on above: Performed By: #### R SV, INFLUAB #### [facility] [address] [address] [address] Wilmer Francis [facility] SED RATE 77 mm/hr Critically high <=20 [facility] Comment on above: Performed By: #### S EDR #### [facility] [address] [address] [address] Wilmer Francis SED RATE 101 mm/hr Critically high <=20 [facility] Comment on above: Performed By: #### P RTELEC #### [facility] [address] [place] [address] Dr. Wilmer Francis SODIUM RANDOM URINEon 2021 Sodium (U) [Moles/Vol] 43 mmol/L Normal 30-90 Th e [facility] Comment on above: Performed By: #### B WAISTLINE JOINER OVERLOCK #### [facility] [address] [place] [address] Dr. Wilmer Francis TSHon 06-19-2022 TSH 0.127 uIU/mL Critically low 0.358-3.740 [facility] Comment on above: Performed By: #### T SH, CRP #### [facility] [address] [place] [address] Dr. Wilmer Francis URINE T PROTEIN CREAT RATIOo n 06-19-2022 Protein (U) [Mass/Vol] 26.2 mg/dL Critically high <=12.0 [facility] Comment on above: Performed By: #### S EDR #### [facility] [address] [place] [address] Dr. Wilmer Francis UR PROT CREAT RAT 0.15 Normal [facility] Comment on above: Performed By: #### S EDR #### [facility] [address] [place] [address] Dr. Wilmer Francis URINE CREAT 178.86 mg/dL Normal 20.00-300.00 [facility] Comment on above: Performed By: #### S EDR #### [facility] [address] [place] [address] Dr. Wilmer Francis XR CHEST 1 Von 06-19-2022 XR CHEST 1 V CXR - 1 VIEW HISTORY: Shortness of breath COMPARISON: 07/16/2021 TECHNIQUE: Single frontal view of the chest is submitted for review. FINDINGS: Lungs are adequately expanded. The cardiac silhouette measures enlarged. Pulmonary vascularity is increased. Osseous structures are within normal limits for age. IMPRESSION: Cardiomegaly with prominence of pulmonary vascularity. Please correlate for congestive heart failure. Electronically authenticated by: KWAKU GEORGE Date: 2022-06-18 23:37 Normal [facility] COVID Quick Testingon 2021 Result Negative [facility] [employer] Other CBC Auto Differentialon 12-0 Basophils (Bld) [#/Vol] 0.05 10*3/uL [place] Basophils/100 WBC (Bld) 1 % 0 - 2 % M [place], [place] Differential Type NOT REPORTED [place] Eosinophils (Bld) [#/Vol] 10*3/uL [place] Eosinophils/100 WBC (Bld) 0 % Low 1 - 4 % [place] Erythrocyte distribution width (RBC) [Ratio] 12.7 % 11.8 - 14.4 % [place], [place] Hematocrit (Bld) [Volume fraction] 49.2 % 40.7 - 50.3 % [place] Hemoglobin (Bld) [Mass/Vol] 16.3 g/dL 13 - 17 g/dL [place] Immature granulocytes (Bld) [#/Vol] 0 % 0 [place] Immature granulocytes (Bld) [#/Vol] 0.04 10*3/uL [place] Interpretation and review of laboratory results Abnormal [place] Lymphocytes (Bld) [#/Vol] 1.63 10*3/uL [place] Lymphocytes/100 WBC (Bld) 18 % Low 24 - 43 % [place] MCH (RBC) [Entitic mass] 30.4 pg 25.2 - 33.5 pg [place] MCHC (RBC) [Mass/Vol] 33.1 g/dL 28.4 - 34.8 g/ dL [place] MCV (RBC) [Entitic vol] 91.8 fL 82.6 - 102.9 fL [place] Monocytes (Bld) [#/Vol] 0.73 10*3/uL [place] Monocytes/100 WBC (Bld) 8 % 3 - 12 % [place] Platelet mean volume (Bld) [Entitic vol] 9.8 fL 8.1 - 13.5 fL [place] Platelets (Bld) [#/Vol] NOT REPORTED [place] Platelets (Bld) [#/Vol] 295 10*3/uL [place] RBC (Bld) [#/Vol] 5.36 10*6/uL 4.21 - 5.77 m/uL [place] RBC morphology finding Nom (Bld) NOT REPORTED [place] Segmented neutrophils/100 WB C (Bld) 73 % High 36 - 65 % [place] Segs Absolute 6.51 [place], [place] WBC (Bld) [#/Vol] 9.0 10*3/uL [place] WBC (Bld) [#/Vol] 0.0 10*3/uL 0.0 per 100 WBC M [place] WBC Morphology NOT REPORTED [place], [place] CBC with Diffon 06-07-2020 Abs. Basophil 0.05 k/uL Normal 0.00-0.20 [facility] Comment on above: Performed By: #### F T4, PSAS, LIPR #### [address] [address] Auto Adjudication Specialist: Jd Patricia MD #### CP, CDP, TSH #### [facility] [address] [place] [address] [phone] ( Auto Adjudication Specialist: Mohamud Zamudio MD Abs.Imm.Granulocyte 0.04 k/uL Normal 0.00-0.30 [facility] Comment on above: Performed By: #### F T4, PSAS, LIPR #### [address] [address] Auto Adjudication Specialist: Jd Patricia MD #### CP, CDP, TSH #### [facility] [address] [place] [address] [address] [phone] ( Auto Adjudication Specialist: Mohamud Zamduio MD Abs.Neutrophil (Seg) 6.51 k/uL Normal 1.50-8.10 [facility] Comment on above: Performed By: #### F T4, PSAS, LIPR #### [address] [address] Auto Adjudication Specialist: Jd Patricia MD #### CP, CDP, TSH #### [address] [place] [address] Auto Adjudication Specialist: Mohamud Zamudio MD Basophils/100 WBC (Bld) 1 % Normal 0-2 M [facility] Comment on above: Performed By: #### F T4, PSAS, LIPR #### [address] [address] Auto Adjudication Specialist: Jd Patricia MD #### CP, CDP, TSH #### [address] [place] [phone] Auto Adjudication Specialist: Mohamud Zamudio MD Eosinophils (Bld) [#/Vol] 10*3/uL Normal 0.00-0.44 [facility] Comment on above: Performed By: #### F T4, PSAS, LIPR #### [address] [address] Auto Adjudication Specialist: Jd Patricia MD #### CP, CDP, TSH #### [address] [place] [address] Auto Adjudication Specialist: Mohamud Zamudio MD Eosinophils/100 WBC (Bld) 0 % Low 1-4 [facility] Comment on above: Performed By: #### F T4, PSAS, LIPR #### [address] [address] Auto Adjudication Specialist: Jd Patricia MD #### CP, CDP, TSH #### [facility] [address] [place] [address] [place] [address] Auto Adjudication Specialist: Mohamud Zamudio MD Erythrocyte distribution wid th (RBC) [Ratio] 12.7 % Normal 11.8-14.4 [facility] Comment on above: Performed By: #### F T4, PSAS, LIPR #### [address] [address] Auto Adjudication Specialist: Jd Patricia MD #### CP, CDP, TSH #### [address] [place] [phone] Auto Adjudication Specialist: Mohamud Zamudio MD Hematocrit (Bld) [Volume fraction] 49.2 % Normal 4 0.7-50.3 [facility] Comment on above: Performed By: #### F T4, PSAS, LIPR #### [address] [address] Auto Adjudication Specialist: Jd Patricia MD #### CP, CDP, TSH #### [address] [place] [phone] Auto Adjudication Specialist: Mohamud Zamudio MD Hemoglobin (Bld) [Mass/Vol] 16.3 g/dL Normal 13.0-17. 0 [facility] Comment on above: Performed By: #### F T4, PSAS, LIPR #### [address] [address] Auto Adjudication Specialist: Jd Patricia MD #### CP, CDP, TSH #### [address] [place] [phone] Auto Adjudication Specialist: Mohamud Zamudio MD Immature granulocytes (Bld) [#/Vol] 0 % Normal 0 [facility] Comment on above: Performed By: #### F T4, PSAS, LIPR #### [address] [address] Auto Adjudication Specialist: Jd Patricia MD #### CP, CDP, TSH #### [address] [place] [phone] Auto Adjudication Specialist: Mohamud Zamudio MD Lymphocytes (Bld) [#/Vol] 1.63 10*3/uL Normal 1.10-3.7 0 [facility] Comment on above: Performed By: #### F T4, PSAS, LIPR #### [address] [address] Auto Adjudication Specialist: Jd Patricia MD #### CP, CDP, TSH #### [address] [place] [address] Auto Adjudication Specialist: Mohamud Zamudio MD Lymphocytes/100 WBC (Bld) 18 % Low 24-43 [facility] Comment on above: Performed By: #### F T4, PSAS, LIPR #### [address] [address] Auto Adjudication Specialist: Jd Patricia MD #### CP, CDP, TSH #### [address] [place] [address] Auto Adjudication Specialist: Mohamud Zamudio MD MCH (RBC) [Entitic mass] 30.4 pg Normal 25.2-33.5 [facility] Comment on above: Performed By: #### F T4, PSAS, LIPR #### [address] [address] Auto Adjudication Specialist: Jd Patricia MD #### CP, CDP, TSH #### [address] [place] [address] Auto Adjudication Specialist: Mohamud Zamudio MD MCHC (RBC) [Mass/Vol] 33.1 g/dL Normal 28.4-34.8 [facility] Comment on above: Performed By: #### F T4, PSAS, LIPR #### [address] [address] Auto Adjudication Specialist: Jd Patricia MD #### CP, CDP, TSH #### [address] [place] [address] Auto Adjudication Specialist: Mohamud Zamudio MD MCV (RBC) [Entitic vol] 91.8 fL Normal 82.6-102.9 [facility] Comment on above: Performed By: #### F T4, PSAS, LIPR #### [address] [address] Auto Adjudication Specialist: Jd Patricia MD #### CP, CDP, TSH #### [facility] [address] [place] [address] [place], [place] [phone] Auto Adjudication Specialist: Mohamud Zamudio MD Monocytes (Bld) [#/Vol] 0.73 10*3/uL Normal 0.10-1.20 [facility] Comment on above: Performed By: #### F T4, PSAS, LIPR #### [address] [address] Auto Adjudication Specialist: Jd Patricia MD #### CP, CDP, TSH #### [address] [place] [phone] Auto Adjudication Specialist: Mohamud Zamudio MD Monocytes/100 WBC (Bld) 8 % Normal 3-12 [facility] Comment on above: Performed By: #### F T4, PSAS, LIPR #### [address] [address] Auto Adjudication Specialist: Jd Patricia MD #### CP, CDP, TSH #### [address] [place], [place] [id number] Auto Adjudication Specialist: Mohamud Zamudio MD Neutrophil (Seg) 73 % High 36-65 [facility] Comment on above: Performed By: #### F T4, PSAS, LIPR #### [address] [address] Auto Adjudication Specialist: Jd Patricia MD #### CP, CDP, TSH #### [address] [place], [place] [id number] Auto Adjudication Specialist: oMhamud Zamudio MD NRBC Automated 0.0 per 100 WBC Normal 0.0 [facility] Comment on above: Performed By: #### F T4, PSAS, LIPR #### [address] [place] [address] Auto Adjudication Specialist: Jd Patricia MD #### CP, CDP, TSH #### [address] [place] [id number] Auto Adjudication Specialist: Mohamud Zamudio MD Platelet mean volume (Bld) [Entitic vol] 9.8 fL Normal 8.1-13.5 [facility] Comment on above: Performed By: #### F T4, PSAS, LIPR #### [address] [address] Auto Adjudication Specialist: Jd Patricia MD #### CP, CDP, TSH #### [address] [place] [phone] Auto Adjudication Specialist: Mohamud Zamudio MD Platelets (Bld) [#/Vol] 295 10*3/uL Normal 138-453 [facility] Comment on above: Performed By: #### F T4, PSAS, LIPR #### [address] [address] Auto Adjudication Specialist: Jd Patricia MD #### CP, CDP, TSH #### [address] [place] [phone] Auto Adjudication Specialist: Mohamud Zamudio MD RBC (Bld) [#/Vol] 5.36 10*6/uL Normal 4.21-5.77 [facility] Comment on above: Performed By: #### F T4, PSAS, LIPR #### [address] [address] Auto Adjudication Specialist: Jd Patricia MD #### CP, CDP, TSH #### [address] [place], [place] [phone] Auto Adjudication Specialist: Mohamud Zamudio MD WBC (Bld) [#/Vol] 9.0 10*3/uL Normal 3.5-11.3 [facility] Comment on above: Performed By: #### F T4, PSAS, LIPR #### [address] [address] Auto Adjudication Specialist: Jd Patricia MD #### CP, CDP, TSH #### [facility] [address] [place] [address] [place], [place] [phone] Auto Adjudication Specialist: Mohamud Zamudio MD Auto Diff Performed NOT REPORTED Normal [facility] Comment on above: Performed By: #### F T4, PSAS, LIPR #### [address] [address] Auto Adjudication Specialist: Jd Patricia MD #### CP, CDP, TSH #### [facility] [address] [place] [address] [place] [address] Auto Adjudication Specialist: Mohamud Zamudio MD Platelets (Bld) [#/Vol] NOT REPORTED Normal [facility] Comment on above: Performed By: #### F T4, PSAS, LIPR #### [address] [address] Auto Adjudication Specialist: Jd Patricia MD #### CP, CDP, TSH #### [address] [place] [address] Auto Adjudication Specialist: Mohamud Zamudio MD RBC morphology finding Nom (Bld) NOT REPORTED Normal [facility] Comment on above: Performed By: #### F T4, PSAS, LIPR #### [address] [address] Auto Adjudication Specialist: Jd Patricia MD #### CP, CDP, TSH #### [facility] [address] [place] [address] [place] [address] Auto Adjudication Specialist: Mohamud Zamudio MD WBC Morphology NOT REPORTED Normal [facility] Comment on above: Performed By: #### F T4, PSAS, LIPR #### [address] [place] [address] Auto Adjudication Specialist: Jd Patricia MD #### CP, CDP, TSH #### [facility] [address] [place] [address] Auto Adjudication Specialist: Mohamud Zamudio MD CT ABDOMEN PELVIS W IV CONTR Cristina 06-07-2020 CT ABDOMEN PELVIS W IV CONTRAST EXAMINATION: CT OF THE ABDOMEN AND PELVIS WITH CONTRAST 06/07/2020 12:23 pm TECHNIQUE: CT of the abdomen and pelvis was performed with the administration of intravenous contrast. Multiplanar reformatted images are provided for review. Dose modulation, iterative reconstruction, and/or weight based adjustment of the mA/kV was utilized to reduce the radiation dose to as low as reasonably achievable. COMPARISON: None. HISTORY: ORDERING SYSTEM PROVIDED HISTORY: Generalized abdominal pain TECHNOLOGIST PROVIDED HISTORY: FINDINGS: Lower Chest: Elevation of the right hemidiaphragm with associated right basilar atelectasis/scarring. No pericardial or pleural effusions. Organs: Liver, gallbladder, portal vein, pancreas, spleen and adrenal glands all appear unremarkable. Left kidney appears unremarkable. Right kidney demonstrates a small cyst. Abdominal aorta demonstrates moderate calcification without aneurysm. GI/Bowel: Stomach is grossly unremarkable. Small bowel appears nondilated. Oral contrast has reached the rectum. No acute colonic abnormality is seen. Appendix is normal. Pelvis: Urinary bladder is grossly unremarkable. Prostate gland is normal in size. Right-sided fat filled inguinal hernia. Peritoneum/Retroperitoneum: No free air, free fluid or lymphadenopathy. Bones/Soft Tissues: Abdominal wall demonstrates no acute findings. Osseous structures demonstrate degenerative change. IMPRESSION: No acute intra-abdominal process. Interpreted by: Celso Cristobal Jr., DO Signed by: Celso Cristobal Jr., DO 06/07/20 Final result Normal [facility] CT ABDOMEN PELVIS W IV CONTR AST Additional Contrast? Oralon 06-07-2020 No acute intra-abdominal process. [facility], [place] EXAMINATION: CT OF T HE ABDOMEN AND PELVIS WITH CONTRAST 06/07/2020 12:23 pm TECHNIQUE: CT of the abdomen and pelvis was performed with the administration of intravenous contrast. Multiplanar reformatted images are provided for review. Dose modulation, iterative reconstruction, and/or weight based adjustment of the mA/kV was utilized to reduce the radiation dose to as low as reasonably achievable. COMPARISON: None. HISTORY: ORDERING SYSTEM PROVIDED HISTORY: Generalized abdominal pain TECHNOLOGIST PROVIDED HISTORY: FINDINGS: Lower Chest: Elevation of the right hemidiaphragm with associated right basilar atelectasis/scarring. No pericardial or pleural effusions. Organs: Liver, gallbladder, portal vein, pancreas, spleen and adrenal glands all appear unremarkable. Left kidney appears unremarkable. Right kidney demonstrates a small cyst. Abdominal aorta demonstrates moderate calcification without aneurysm. GI/Bowel: Stomach is grossly unremarkable. Small bowel appears nondilated. Oral contrast has reached the rectum. No acute colonic abnormality is seen. Appendix is normal. Pelvis: Urinary bladder is grossly unremarkable. Prostate gland is normal in size. Right-sided fat filled inguinal hernia. Peritoneum/Retroperitoneum: No free air, free fluid or lymphadenopathy. Bones/Soft Tissues: Abdominal wall demonstrates no acute findings. Osseous structures demonstrate degenerative change. [place], [place] Amol, Mhpn Incoming R adiant Results From [facility] - 06/07/2020 12:58 PM EST EXAMINATION: CT OF THE ABDOMEN AND PELVIS WITH CONTRAST 06/07/2020 12:23 pm TECHNIQUE: CT of the abdomen and pelvis was performed with the administration of intravenous contrast. Multiplanar reformatted images are provided for review. Dose modulation, iterative reconstruction, and/or weight based adjustment of the mA/kV was utilized to reduce the radiation dose to as low as reasonably achievable. COMPARISON: None. HISTORY: ORDERING SYSTEM PROVIDED HISTORY: Generalized abdominal pain TECHNOLOGIST PROVIDED HISTORY: FINDINGS: Lower Chest: Elevation of the right hemidiaphragm with associated right basilar atelectasis/scarring. No pericardial or pleural effusions. Organs: Liver, gallbladder, portal vein, pancreas, spleen and adrenal glands all appear unremarkable. Left kidney appears unremarkable. Right kidney demonstrates a small cyst. Abdominal aorta demonstrates moderate calcification without aneurysm. GI/Bowel: Stomach is grossly unremarkable. Small bowel appears nondilated. Oral contrast has reached the rectum. No acute colonic abnormality is seen. Appendix is normal. Pelvis: Urinary bladder is grossly unremarkable. Prostate gland is normal in size. Right-sided fat filled inguinal hernia. Peritoneum/Retroperitoneum: No free air, free fluid or lymphadenopathy. Bones/Soft Tissues: Abdominal wall demonstrates no acute findings. Osseous structures demonstrate degenerative change. IMPRESSION: No acute intra-abdominal process. [place], [place] Comp Metabolic Profon 2019 (cont.) Normal [facility] Comment on above: Result Comment: Aver age GFR for 60-69 years old: 85 mL/min/1.73sq m Chronic Kidney Disease: <60 mL/min/1.73sq m Kidney failure: <15 mL/min/1.73sq m eGFR calculated using average adult body mass. Additional eGFR calculator available at: http://www.[employer]/multiple_crcl_2011.htm Performed By: #### F T4, PSAS, LIPR #### [address] [address] Auto Adjudication Specialist: Jd Patricia MD #### CP, CDP, TSH #### [facility] [address] [place] [address] [place] [address] Auto Adjudication Specialist: Mohamud Zamudio MD Albumin [Mass/Vol] 4.6 g/dL Normal 3.5-5.2 [facility] Comment on above: Performed By: #### F T4, PSAS, LIPR #### [address] [address] Auto Adjudication Specialist: Jd Patricia MD #### CP, CDP, TSH #### [address] [place] [address] Auto Adjudication Specialist: Mohamud Zamudio MD Albumin/Globulin [Mass ratio] 1.3 {ratio} Normal 1.0-2 .5 [facility] Comment on above: Performed By: #### F T4, PSAS, LIPR #### [address] [address] Auto Adjudication Specialist: Jd Patricia MD #### CP, CDP, TSH #### [facility] [address] [place] [address] [place], [place] [id number] Auto Adjudication Specialist: Mohamud Zamudio MD Alkaline Phos 76 U/L Normal 40-129 [facility] Comment on above: Performed By: #### F T4, PSAS, LIPR #### [address] [address] Auto Adjudication Specialist: Jd Patricia MD #### CP, CDP, TSH #### [facility] [address] [place] [phone] Auto Adjudication Specialist: Mohamud Zamudio MD ALT [Catalytic activity/Vol] 26 U/L Normal 5-41 [facility] Comment on above: Performed By: #### F T4, PSAS, LIPR #### [address] [address] Auto Adjudication Specialist: Jd Patricia MD #### CP, CDP, TSH #### [address] [place] [address] Auto Adjudication Specialist: Mohamud Zamudio MD Anion gap [Moles/Vol] 7 mmol/L Low 9-17 [facility] Comment on above: Performed By: #### F T4, PSAS, LIPR #### [address] [address] Auto Adjudication Specialist: Jd Patricia MD #### CP, CDP, TSH #### [address] [place] [address] Auto Adjudication Specialist: Mohamud Zamudio MD AST [Catalytic activity/Vol] 27 U/L Normal <40 [facility] Comment on above: Performed By: #### F T4, PSAS, LIPR #### [address] [address] Auto Adjudication Specialist: Jd Patricia MD #### CP, CDP, TSH #### [address] [place] [address] Auto Adjudication Specialist: Mohamud Zamudio MD Bilirubin Ql (U) 0.66 mg/dL Normal 0.3-1.2 [facility] Comment on above: Performed By: #### F T4, PSAS, LIPR #### [address] [address] Auto Adjudication Specialist: Jd Patricia MD #### CP, CDP, TSH #### [facility] [address] [place] [phone] Auto Adjudication Specialist: Mohamud Zamudio MD BUN/CRE Ratio 11 Normal 9-20 [facility] Comment on above: Performed By: #### F T4, PSAS, LIPR #### [address] [address] Auto Adjudication Specialist: Jd Patricia MD #### CP, CDP, TSH #### [address] [place] [address] Auto Adjudication Specialist: Mohamud Zamudio MD Calcium [Mass/Vol] 9.7 mg/dL Normal 8.6-10.4 [facility] Comment on above: Performed By: #### F T4, PSAS, LIPR #### [address] [address] Auto Adjudication Specialist: Jd Patricia MD #### CP, CDP, TSH #### [address] [place], [place] [phone] Auto Adjudication Specialist: Mohamud Zamudio MD Chloride [Moles/Vol] 100 mmol/L Normal 98-107 [facility] Comment on above: Performed By: #### F T4, PSAS, LIPR #### [address] [address] Auto Adjudication Specialist: Jd Patricia MD #### CP, CDP, TSH #### [facility] [address] [place] [address] Auto Adjudication Specialist: Mohamud Zamudio MD CO2 [Moles/Vol] 30 mmol/L Normal 20-31 [facility] Comment on above: Performed By: #### F T4, PSAS, LIPR #### [address] [address] Auto Adjudication Specialist: Jd Patricia MD #### CP, CDP, TSH #### [facility] [address] [place], [place] [phone] Auto Adjudication Specialist: Mohamud Zamudio MD Creatinine [Mass/Vol] 0.74 mg/dL Normal 0.70-1.20 [facility] Comment on above: Performed By: #### F T4, PSAS, LIPR #### [address] [address] Auto Adjudication Specialist: Jd Patricia MD #### CP, CDP, TSH #### [facility] [address] [place] [address] Auto Adjudication Specialist: Mohamud Zamudio MD GFR, Amer >60 Normal >60 [facility] Comment on above: Performed By: #### F T4, PSAS, LIPR #### [address] [address] Auto Adjudication Specialist: Jd Patricia MD #### CP, CDP, TSH #### [facility] [address] [place], [place] [phone] Auto Adjudication Specialist: Mohamud Zamudio MD GFR,non Amer >60 Normal >60 [facility] Comment on above: Performed By: #### F T4, PSAS, LIPR #### [address] [address] Auto Adjudication Specialist: Jd Patricia MD #### CP, CDP, TSH #### [facility] [address] [place], [place] [phone] Auto Adjudication Specialist: Mohamud Zamudio MD Glucose [Mass/Vol] 140 mg/dL High 70-99 [facility] Comment on above: Performed By: #### F T4, PSAS, LIPR #### [address] [address] Auto Adjudication Specialist: Jd Patricia MD #### CP, CDP, TSH #### [address] [place] [address] Auto Adjudication Specialist: Mohamud Zamudio MD Potassium [Moles/Vol] 4.3 mmol/L Normal 3.7-5.3 [facility] Comment on above: Performed By: #### F T4, PSAS, LIPR #### [address] [address] Auto Adjudication Specialist: Jd Patricia MD #### CP, CDP, TSH #### [address] [place] [address] Auto Adjudication Specialist: Mohamud Zamudio MD Protein [Mass/Vol] 8.2 g/dL Normal 6.4-8.3 [facility] Comment on above: Performed By: #### F T4, PSAS, LIPR #### [address] [id number] Auto Adjudication Specialist: Jd Patricia MD #### CP, CDP, TSH #### [address] [place] [phone] Auto Adjudication Specialist: Mohamud Zamudio MD Sodium [Moles/Vol] 137 mmol/L Normal 135-144 [facility] Comment on above: Performed By: #### F T4, PSAS, LIPR #### [address] [address] Auto Adjudication Specialist: Jd Patricia MD #### CP, CDP, TSH #### [address] [place] [address] Auto Adjudication Specialist: Mohamud Zamudio MD Staging: Normal [facility] Comment on above: Result Comment: Stag e 1: Some kidney damage normal GFR Stage 2: Mild kidney damage GFR 60-89 Stage 3: Moderate kidney damage GFR 30-59 Stage 4: Severe kidney damage GFR 15-29 Stage 5: Severe kidney damage GFR <15 ESRD - chronic treatment by dialysis or transplant Performed By: #### F T4, PSAS, LIPR #### [facility] [address] [place], [place] [id number] Auto Adjudication Specialist: Jd Patricia MD #### CP, CDP, TSH #### [facility] [address] [place], [place] [phone] Auto Adjudication Specialist: Mohamud Zamudio MD Urea nitrogen [Mass/Vol] 8 mg/dL Normal 8-23 [facility] Comment on above: Performed By: #### F T4, PSAS, LIPR #### [facility] [address] [place], [place] [phone] Auto Adjudication Specialist: Jd Patricia MD #### CP, CDP, TSH #### [facility] [address] [place] [address] Auto Adjudication Specialist: Mohamud Zamudio MD Comprehensive Metabolic [facility] 06-07-2020 Albumin [Mass/Vol] 4.6 g/dL 3.5 - 5.2 g/dL [place], [place] Albumin/Globulin [Mass ratio] 1.3 {ratio} [place], [place] ALP [Catalytic activity/Vol] 76 U/L 40 - 12 9 U/L [place] ALT [Catalytic activity/Vol] 26 U/L 5 - 41 U/L [place] Anion gap [Moles/Vol] 7 mmol/L Low 9 - 17 mmol/L [place] AST [Catalytic activity/Vol] 27 U/L <40 [place] Bilirubin Ql (U) 0.66 mg/dL 0.3 - 1.2 mg/dL [place], [place] Bun/Cre Ratio 11 [place], [place] Calcium [Mass/Vol] 9.7 mg/dL 8.6 - 10.4 mg/dL [place] Chloride [Moles/Vol] 100 mmol/L 98 - 107 mmol/L [place] CO2 [Moles/Vol] 30 mmol/L 20 - 31 mmol/L [place] Creatinine [Mass/Vol] 0.74 mg/dL 0.7 - 1.2 mg/d L [place] GFR >60 >60 mL/min [place], [place] GFR Non- >60 >60 mL/min [place] Glucose [Mass/Vol] 140 mg/dL High 70 - 99 mg/dL [place] Interpretation and review of laboratory results Abnormal [place] Potassium [Moles/Vol] 4.3 mmol/L 3.7 - 5.3 mmol /L [place] Protein [Mass/Vol] 8.2 g/dL 6.4 - 8.3 g/dL [place], [place] Sodium [Moles/Vol] 137 mmol/L 135 - 144 mmol/L [place] Urea nitrogen [Mass/Vol] 8 mg/dL 8 - 23 mg/d L [place] Lipid Panelon 06-07-2020 Cholesterol [Mass/Vol] 194 mg/dL <200 [place], [place] Comment on above: Cholesterol Guidelines: <200 Desirable 200-240 Borderline >240 Undesirable Cholesterol in HDL [Mass/Vol] 54 mg/dL >40 [place] Comment on above: HDL Guidelines: <40 Undesirable 40-59 Borderline >59 Desirable Cholesterol in LDL [Mass/Vol] 124 mg/dL 0 - 13 0 mg/dL [place] Comment on above: LDL Guidelines: <100 Desirable 100-129 Near to/above Desirable 130-159 Borderline >159 Undesirable Direct (measured) LDL and calculated LDL are not interchangeable tests. Cholesterol in VLDL [Mass/Vol] NOT REPORTED 1 - 30 mg/dL [place] Cholesterol.total/Cholestero l in HDL [Mass ratio] 3.6 {ratio} <5 [place] Triglyceride [Mass/Vol] 81 mg/dL <150 [place], [place] Comment on above: Triglyceride Guidelines: <150 Desirable 150-199 Borderline 200-499 High >499 Very high Based on AHA Guidelines for fasting triglyceride, April 2012. Lipid Profileon 06-07-2020 Cholesterol [Mass/Vol] 194 mg/dL Normal <200 [facility] Comment on above: Result Comment: Cholesterol Guidelines: <200 Desirable 200-240 Borderline >240 Undesirable Performed By: #### F T4, PSAS, LIPR #### [address] [address] Auto Adjudication Specialist: Jd Patricia MD #### CP, CDP, TSH #### [address] [place] [phone] Auto Adjudication Specialist: Mohamud Zamudio MD Cholesterol in HDL [Mass/Vol] 54 mg/dL Normal >40 [facility] Comment on above: Result Comment: HDL Guidelines: <40 Undesirable 40-59 Borderline >59 Desirable Performed By: #### F T4, PSAS, LIPR #### [address] [address] Auto Adjudication Specialist: Jd Patricia MD #### CP, CDP, TSH #### [address] [place] [phone] Auto Adjudication Specialist: Mohamud Zamudio MD Cholesterol in LDL [Mass/Vol] 124 mg/dL Normal 0-130 [facility] Comment on above: Result Comment: LDL Guidelines: <100 Desirable 100-129 Near to/above Desirable 130-159 Borderline >159 Undesirable Direct (measured) LDL and calculated LDL are not interchangeable tests. Performed By: #### F T4, PSAS, LIPR #### [address] [address] Auto Adjudication Specialist: Jd Patricia MD #### CP, CDP, TSH #### [address] [place] [phone] Auto Adjudication Specialist: Mohamud Zamudio MD Cholesterol.total/Cholestero l in HDL [Mass ratio] 3.6 {ratio} Normal <5 [facility] Comment on above: Performed By: #### F T4, PSAS, LIPR #### [address] [address] Auto Adjudication Specialist: Jd Patricia MD #### CP, CDP, TSH #### [facility] [address] [place] [address] Auto Adjudication Specialist: Mohamud Zamudio MD Triglyceride [Mass/Vol] 81 mg/dL Normal <150 [facility] Comment on above: Result Comment: Triglyceride Guidelines: <150 Desirable 150-199 Borderline 200-499 High >499 Very high Based on AHA Guidelines for fasting triglyceride, April 2012. Performed By: #### F T4, PSAS, LIPR #### [facility] [address] [place], [place] [phone] Auto Adjudication Specialist: Jd Patricia MD #### CP, CDP, TSH #### [facility] [address] [place] [address] Auto Adjudication Specialist: Mohamud Zamudio MD Cholesterol in VLDL [Mass/Vol] NOT REPORTED Normal 1-3 0 [facility] Comment on above: Performed By: #### F T4, PSAS, LIPR #### [id number] [place] [address] Auto Adjudication Specialist: Jd Patricia MD #### CP, CDP, TSH #### [facility] [address] [place] [address] Auto Adjudication Specialist: Mohamud Zamudio MD [facility] KAYCEE DIGITAL DIAGNOSTIC BILATERALon 06-07-2020 [facility] KAYCEE DIGITAL DIAGNOSTIC BILATERAL EXAMINATION: DIAGNOSTIC DIGITAL BILATERAL BREASTS MAMMOGRAM WITH TOMOSYNTHESIS; TARGETED ULTRASOUND OF THE LEFT BREAST, 06/07/2020 10:44 am TECHNIQUE: Diagnostic mammography of the bilateral breasts was performed with tomosynthesis. 2D standard and 3D tomosynthesis combination imaging performed through both breasts. Computer aided detection was utilized in the interpretation of this exam.; Target ultrasound of the left breast was performed. Views: CC and MLO views with tomosynthesis. COMPARISON: None. HISTORY: ORDERING SYSTEM PROVIDED HISTORY: Lump or mass in breast Report of palpable abnormality inferior to the nipple on the left side. Diffuse right-sided pain without palpable concern or focal symptom. FINDINGS: DIAGNOSTIC MAMMOGRAM: No evidence for gynecomastia. No mass, distortion or microcalcifications. Few skin calcifications are noted. TARGETED ULTRASOUND: Targeted ultrasound was performed in the focal area of left-sided symptoms, located in the 12 o'clock position, 2 cm from the nipple. No sonographic abnormality identified. No enlarged or suspicious left axillary lymph nodes. IMPRESSION: 1. Negative bilateral mammogram. No evidence for gynecomastia. 2. Negative targeted ultrasound in the area of localized symptoms on the left side. Clinical follow-up is recommended. BI-RADS 1 BIRADS: BIRADS - CATEGORY 1 Negative. OVERALL ASSESSMENT - NEGATIVE A letter of notification will be sent to the patient regarding the results. Interpreted by: James Samuel MD Signed by: James Samuel MD 06/07/20 Final result Normal [facility] Metabolic Panelon 06-07-2020 GFR/1.73 sq M predicted sammy g non-blacks MDRD (S/P/Bld) [Vol rate/Area] [place], [place] Comment on above: Average GFR for 60-6 9 years old: 85 mL/min/1.73sq m Chronic Kidney Disease: <60 mL/min/1.73sq m Kidney failure: <15 mL/min/1.73sq m eGFR calculated using average adult body mass. Additional eGFR calculator available at: http://www.[employer]Soon/multiple_crcl_2012.htm Stage 1: Some kidney damage normal GFR Stage 2: Mild kidney damage GFR 60-89 Stage 3: Moderate kidney damage GFR 30-59 Stage 4: Severe kidney damage GFR 15-29 Stage 5: Severe kidney damage GFR <15 ESRD - chronic treatment by dialysis or transplant Otheron 06-07-2020 1. Negative bilatera l mammogram. No evidence for gynecomastia. 2. Negative targeted ultrasound in the area of localized symptoms on the left side. Clinical follow-up is recommended. BI-RADS 1 BIRADS: BIRADS - CATEGORY 1 Negative. OVERALL ASSESSMENT - NEGATIVE A letter of notification will be sent to the patient regarding the results. [place] EXAMINATION: DIAGNOS TIC DIGITAL BILATERAL BREASTS MAMMOGRAM WITH TOMOSYNTHESIS; TARGETED ULTRASOUND OF THE LEFT BREAST, 06/07/2020 10:44 am TECHNIQUE: Diagnostic mammography of the bilateral breasts was performed with tomosynthesis. 2D standard and 3D tomosynthesis combination imaging performed through both breasts. Computer aided detection was utilized in the interpretation of this exam.; Target ultrasound of the left breast was performed. Views: CC and MLO views with tomosynthesis. COMPARISON: None. HISTORY: ORDERING SYSTEM PROVIDED HISTORY: Lump or mass in breast Report of palpable abnormality inferior to the nipple on the left side. Diffuse right-sided pain without palpable concern or focal symptom. FINDINGS: DIAGNOSTIC MAMMOGRAM: No evidence for gynecomastia. No mass, distortion or microcalcifications. Few skin calcifications are noted. TARGETED ULTRASOUND: Targeted ultrasound was performed in the focal area of left-sided symptoms, located in the 12 o'clock position, 2 cm from the nipple. No sonographic abnormality identified. No enlarged or suspicious left axillary lymph nodes. [facility] [place] Amol, Mhpn Incoming R adiant Results From [facility] - 06/07/2020 12:14 PM EST EXAMINATION: DIAGNOSTIC DIGITAL BILATERAL BREASTS MAMMOGRAM WITH TOMOSYNTHESIS; TARGETED ULTRASOUND OF THE LEFT BREAST, 06/07/2020 10:44 am TECHNIQUE: Diagnostic mammography of the bilateral breasts was performed with tomosynthesis. 2D standard and 3D tomosynthesis combination imaging performed through both breasts. Computer aided detection was utilized in the interpretation of this exam.; Target ultrasound of the left breast was performed. Views: CC and MLO views with tomosynthesis. COMPARISON: None. HISTORY: ORDERING SYSTEM PROVIDED HISTORY: Lump or mass in breast Report of palpable abnormality inferior to the nipple on the left side. Diffuse right-sided pain without palpable concern or focal symptom. FINDINGS: DIAGNOSTIC MAMMOGRAM: No evidence for gynecomastia. No mass, distortion or microcalcifications. Few skin calcifications are noted. TARGETED ULTRASOUND: Targeted ultrasound was performed in the focal area of left-sided symptoms, located in the 12 o'clock position, 2 cm from the nipple. No sonographic abnormality identified. No enlarged or suspicious left axillary lymph nodes. IMPRESSION: 1. Negative bilateral mammogram. No evidence for gynecomastia. 2. Negative targeted ultrasound in the area of localized symptoms on the left side. Clinical follow-up is recommended. BI-RADS 1 BIRADS: BIRADS - CATEGORY 1 Negative. OVERALL ASSESSMENT - NEGATIVE A letter of notification will be sent to the patient regarding the results. [facility] RACHEL PSA, Screeningon 06-07-2020 Prostatic Spec. Ag 0.47 ug/L Normal <4.1 [facility] Comment on above: Result Comment: The Graciela ECLIA assay is used. Results obtained with different assay methods cannot be used interchangeably. Performed By: #### F T4, PSAS, LIPR #### [id number] [place] [address] Auto Adjudication Specialist: Jd Patricia MD #### CP, CDP, TSH #### [facility] [address] [place] [address] [place] [address] Auto Adjudication Specialist: Mohamud Zamudio MD T4, Freeon 06-07-2020 Thyroxine, Free 1.37 ng/dL 0.93 - 1.7 ng/dL [place], [place] TSH without Reflexon 020 TSH Qn 0.70 m[IU]/L [place], [place] Thyroid Stim. Horm.on 2019 TSH Qn 0.70 m[IU]/L Normal 0.30-5.00 [facility] Comment on above: Performed By: #### F T4, PSAS, LIPR #### [address] [address] Auto Adjudication Specialist: dJ Patricia MD #### CP, CDP, TSH #### [address] [place] [address] Auto Adjudication Specialist: Mohamud Zamudio MD Thyroxine, Freeon 06-07-2020 Thyroxine, Free 1.37 ng/dL Normal 0.93-1.70 [facility] Comment on above: Performed By: #### F T4, PSAS, LIPR #### [address] [address] Auto Adjudication Specialist: Jd Patricia MD #### CP, CDP, TSH #### [address] [place] [address] Auto Adjudication Specialist: Mohamud Zamudio MD US BREAST COMPLETE LEFTon US BREAST COMPLETE LEFT EXAMINATION: DIAGNOSTIC DIGITAL BILATERAL BREASTS MAMMOGRAM WITH TOMOSYNTHESIS; TARGETED ULTRASOUND OF THE LEFT BREAST, 06/07/2020 10:44 am TECHNIQUE: Diagnostic mammography of the bilateral breasts was performed with tomosynthesis. 2D standard and 3D tomosynthesis combination imaging performed through both breasts. Computer aided detection was utilized in the interpretation of this exam.; Target ultrasound of the left breast was performed. Views: CC and MLO views with tomosynthesis. COMPARISON: None. HISTORY: ORDERING SYSTEM PROVIDED HISTORY: Lump or mass in breast Report of palpable abnormality inferior to the nipple on the left side. Diffuse right-sided pain without palpable concern or focal symptom. FINDINGS: DIAGNOSTIC MAMMOGRAM: No evidence for gynecomastia. No mass, distortion or microcalcifications. Few skin calcifications are noted. TARGETED ULTRASOUND: Targeted ultrasound was performed in the focal area of left-sided symptoms, located in the 12 o'clock position, 2 cm from the nipple. No sonographic abnormality identified. No enlarged or suspicious left axillary lymph nodes. IMPRESSION: 1. Negative bilateral mammogram. No evidence for gynecomastia. 2. Negative targeted ultrasound in the area of localized symptoms on the left side. Clinical follow-up is recommended. BI-RADS 1 BIRADS: BIRADS - CATEGORY 1 Negative. OVERALL ASSESSMENT - NEGATIVE A letter of notification will be sent to the patient regarding the results. Interpreted by: James Samuel MD Signed by: James Samuel MD 06/07/20 Final result Normal [facility] Vital Signs Date Time Vital Sign Value Performing Clinician Facility 07-14-2021 14:30-0500 Body height 170.18 cm Jazmin Tricidaherb Other [facility] Other 07-14-2021 14:30-0500 Body mass index (BMI) [Ratio] 33.67 kg/m2 Jazmin Ortiz Other [facility] Other 07-14-2021 14:30-0500 Body temperature 97.7 [degF] Jazmin Ortiz Other [facility] Other 07-14-2021 14:30-0500 Body weight 97.52 kg Jazmin Priscillagail Other [facility] Other 07-14-2021 14:30-0500 Respiratory rate 16 /min Jazmin Ginty Other [facility] Other 07-14-2021 14:30-0500 SaO2% (BldA) [Mass fraction] 92 % Jazmin Ginty Other [facility] Other Encounters Encounter Date Encounter Type Care Provider Facility Start: 12-18-2022 End: 12-18-2022 ambulatory [facility] Start: 12-04-[address] JOE MUSA Fac ility:[facility]1 Start: 11-28-2022 End: 11-29-[address] JOE MUSA Facility:[facility] Start: 10-31-2022 End: 11-01-[address] JOE MUSA Facility:[facility] Start: 10-22-2022 End: 10-23-2022 ambulatory DARIN Padron Facility:[facility]1 Start: 09-06-2022 End: 09-07-[address] KEVIN STANLEY Facility:[facility] Start: 07-16-2022 End: 07-17-[address] JOE MUSA Facility:[facility] Start: 06-20-2022 End: 06-22-2022 Evaluation and management of inpatient DR HAMLET QUINN Facility:[facility] Start: 07-14-2021 End: 07-14-2021 ambulatory Jazmin Priscillanty Other [facility] Other Start: 07-14-2021 Office outpatient visit 15 minutes Jazmin Priscillanty [facility] Start: 06-07-2020 End: 06-10-2020 Patient encounter procedure JOE MUSA [facility] Start: 06-07-2020 End: 06-09-2020 Subsequent hospital visit by physician [facility] Drawing Room [facility] Comment on above: Arrived Breast lump Generalized abdomina l pain Lump in central port ion of left breast Lump or mass in [address] Procedures Date Procedure Procedure Detail Performing Clinician Start: 12-04-[address] JOE MUSA Comment on above: Performed By: #### B WAISTLINE JOINER OVERLOCK #### [facility] [address], [place] [address] Dr. Wilmer Francis Start: 09-09-2022 Cyclic citrullinated peptide antibod y Comment on above: Performed By: #### C BC/2A, MSEP, ANAFX, ACAX3, C3-C4, ESRCRP, TSHFX, VD25, CCP, RHF, URCA, HBSAG, HCV #### [facility] [address] [facility], [address] Start: 07-16-[address] JOE MUSA Comment on above: Performed By: #### T SH, CRP #### [facility] [id number] Wilmer Francis Start: 06-07-2020 [object Object] [facility] Sandra beauchamp Comment on above: The [employer] ECLIA as say is used. Results obtained with different assay methods cannot be used interchangeably. Start: 06-07-2020 Us breast uni real t olimpia with image complete JOE MUSA Start: 06-07-2020 Ct abdomen & pelvis w/contrast material JOE MUSA Start: 06-07-2020 Us breast uni real t olimpia with image complete Joe Musa Work Phone: Start: 06-07-2020 Diagnostic mammograp hy computer-aided detcj bi JOE MUSA Start: 06-07-2020 Assay of free thyroxine JOE MUSA Start: 06-07-2020 Assay of thyroid sti mulating hormone tsh JOE MUSA Start: 06-07-2020 Blood count complete auto&auto difrntl wbc JOE MUSA Start: 06-07-2020 Comprehensive metabolic panel JOE MUSA Start: 06-07-2020 Lipid panel JOE PEARSON Start: 06-07-2020 PSA screening JOE ALCALA Start: 06-07-2020 Ct abdomen & pelvis w/contrast material Joe Musa Work Phone: Start: 06-07-2020 Diagnostic mammograp hy computer-aided detcj bi Joe Musa Work Phone: Start: 06-07-2020 Assay of free thyroxine Joe Musa Work Phone: Start: 06-07-2020 Assay of thyroid sti mulating hormone tsh Joe Musa Work Phone: Start: 06-07-2020 Blood count complete auto&auto difrntl wbc Joe Musa Work Phone: Start: 06-07-2020 Comprehensive metabolic panel Joe Musa Work Phone: Start: 06-07-2020 Lipid panel Joe gomes Work Phone: Start: 06-07-2020 PSA screening Joe Musa Work Phone: Plan of Treatment Date Care Activity Detail Author Start: 06-07-2025 Lipid panel Lipid screen [place], [place] Start: 03-07-2020 Influenza vaccination Flu vaccine (# 1) [place], [place] Start: 11-16-2005 Screening for malign ant neoplasm of colon Colon cancer screen colonoscopy [place], [place] Start: 11-16-2005 Shingles Vaccine (1 of 2) Shingles Vaccine (1 of 2) [place], [place] Start: 1995 Lipid panel Lipid screen [place], [place] Start: 11-16-1974 DTaP/Tdap/Td vaccine (1 - Tdap) DTaP/Tdap/Td vaccine (1 - Tdap) [place], [place] Start: 11-16-1970 HIV screening HIV screen [place], [place] Start: 1955 Hepatitis C screening Hepatitis C sc reen [place], [place] Payers Date Payer Category Payer Private Health Insurance [id number] 1959 Medicare [id number] 2. [id number] 1959 Self-pay 1955 Unknown [id number] 2.16.8 [id number] 1955 Unknown [id number] 2.16.8 [id number] 1955 Unknown [id number] 2.16.8 [id number] 1955 Unknown [id number] 2.16.8 [id number] 1955 Unknown [id number] 2.16.8 [id number] 1955 Unknown [id number] 2.16.84 0.1.173388.3.579.2.593 1955 Unknown [id number] 2.16.84 0.1.325178.3.579.2.593 1955 Unknown [id number] 2.16.84 0.1.628314.3.579.2.593 1955 Unknown [id number] 2.16.84 0.1.717181.3.579.2.593 1955 Unknown [id number] 2.16.84 0.1.138462.3.579.2.593 1955 Unknown [id number] 2.16.84 0.1.661385.3.579.2.593 1955 Unknown [id number] 2.16.84 0.1.506364.3.579.2.593 1955 Unknown [id number] 2.16.84 0.1.978048.3.579.2.593 Unknown [id number] 2.16.84 [id number] Social History Date Type Detail Facility Tobacco smoking status PAIS Unknown if ev er smoked [facility] [place] Sex Assigned At Not on file [place], [place] Exposure to SARS-CoV -2 (event) Not sure [facility], [place] Sex Assigned At Sex Assigned At Bir th [facility] Other Progress note 12-18-2022 Note Date & Type Note Facility 12-18-2022 Note [facility] Subjective Bipin Ulloa is a 67 y.o. year old male patient being seen for 1 year follow up hypertension and hyperlipidemia. Had routine labs 2 weeks ago. He sees Dr. Granado for emphysema. Denies chest pain. Says he was diagnosed with rheumatoid arthritis since last visit. Patient Active Problem List Diagnosis Chronic obstructive lung disease (CMS/HCC) Fatigue Gastroesophageal reflux disease Hyperlipidemia Hypertensive disorder Obesity Type 2 diabetes mellitus (CMS/HCC) Family History Problem Relation Name Age of Onset Heart failure Father Coronary artery disease Father Social History Tobacco Use Smoking status: Former Types: Cigarettes Smokeless tobacco: Never Substance Use Topics Alcohol use: Yes Comment: moderate HPI Visit of 10/29/2021: Bipin is seen as a new patient to establish care. He is a 65-year-old man with prior history of hyperlipidemia, hypertension on treatment. He also has COPD/emphysema and follows pulmonary [Dr. Granado]. He has been having shortness of breath on exertion. NYHA class II-III. He has no chest pain and no chest pressure. He does report chest tightness with the shortness of breath. He has no palpitations. No lower extremity edema. Prior testing: Blood testing 10/16/2021: Potassium 4.8, BUN 15, creatinine 0.81, GFR more than 60. Blood testing 07/27/2021: BUN 29, creatinine 1.05, potassium 4.5, GFR more than 60, LFTs normal, cholesterol 174, HDL 48, LDL 85, triglycerides 203, HbA1c 6.5%. CT angiogram of the chest 07/16/2021: No evidence of embolism in the more central vessels, some of the midsized vessels and the smaller peripheral vessels cannot be reliably evaluated due to breathing motion artifact. No definite acute process in the lungs although an early pneumonia cannot be excluded in the right lung base. Diffuse fatty change in the liver. ECG 07/16/2021: Sinus rhythm, moderate right axis deviation. PFTs 12/06/2019: Mild obstructive disease with significant response to bronchodilators, moderate restrictive defect, normal diffusion capacity, increased airway resistance and decreased conduction conductance correlates with airway obstruction. Cardiac stress test 09/26/2016: No ischemia, small inferior lateral wall fixed perfusion defect artifact is favored, normal wall motion and ejection fraction. Echocardiogram 09/25/2016: Prominent anterior clear space with poor subcostal images likely epicardial fat pad cannot exclude small anterior pericardial effusion otherwise normal echocardiogram. Visit of 12/31/2021: He is seen in follow-up. At last visit I added amlodipine 5 mg daily for blood pressure control. Due to shortness of breath on exertion I checked an echocardiogram to rule out an underlying cardiac etiology. However his shortness of breath is most likely related to his COPD. Today he reports that he feels great. He has no chest pain. His shortness of breath is still at baseline for his COPD. He reports that his blood pressure has been very well controlled. He has no complaints. Echocardiogram 11/19/2021: Normal ventricular function, LVEF is 60%, no significant valvular dysfunction, mildly elevated right-sided pressures, RVSP 38 mmHg, no pericardial effusion. Visit of 12/18/2022: He is seen in follow-up. He reports that he has been doing well. He denies chest pain. 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 He is following with pulmonary. He has mild occasional lower extremity swelling. No palpitations. His exercise ability is at baseline. He is fairly active. His main limitation is arthritis for which she was started on hydroxychloroquine about 4 months ago. Review of Systems Cardiovascular: Positive for dyspnea on exertion. Respiratory: Positive for cough and wheezing. Hematologic/Lymphatic: Bruises/bleeds easily. Musculoskeletal: Positive for arthritis, back pain and joint pain. Objective Visit Vitals BP 119/76 (BP Location: Right arm, Patient Position: Sitting) Pulse 71 Ht 1.702 m (5' 7 ) Wt 98.4 kg (217 lb) SpO2 95% BMI 33.99 kg/m??? Smoking Status Former BSA 2.16 m??? Physical Exam Constitutional: Appearance: He is well-developed. He is obese. He is not ill-appearing. HENT: Head: Normocephalic and atraumatic. Nose: Nose normal. Eyes: General: No scleral icterus. Pupils: Pupils are equal, round, and reactive to light. Neck: Thyroid: No thyromegaly. Vascular: No JVD. Cardiovascular: Rate and Rhythm: Normal rate and regular rhythm. Pulses: Radial pulses are 2+ on the right side and 2+ on the left side. Heart sounds: Normal heart sounds. No murmur heard. No friction rub. No gallop. Pulmonary: Effort: Pulmonary effort is normal. No respiratory distress. Breath sounds: Normal breath sounds. No wheezing or rales. Chest: Chest wall: No tenderness. Abdominal: General: Bowel sounds are normal. There is no d (more content not included)... [facility] Evaluation note 07-14-2021 Note Date & Type Note Facility 07-14-2021 Evaluation note Encounter Date Diagnosis Assessment Notes Jul, Contact with and (suspected) exposure to other viral communicable diseases (ICD-10 - Z20.828) Jul, Bronchitis (ICD-10 - J40) Advised patient that COVID antigen test was negative today. Will treat with antibiotic today, reviewed allergies and antibiotic use. Advised to take antibiotic and steroid as directed, take with food and plenty of water, reviewed side effects of steroid. Advised to use Albuterol Inhaler every 4 hours. Encouraged supportive care as directed, increase fluids and rest, Tylenol as directed, OTC cough/cold remedies as directed on packaging, cool mist humidifier, throat lozenges. Discussed infection control practices such as good hand washing and mask wearing. Patient to follow up with PCP if sx persist or worsen despite treatment. Immediate eval for SOB, difficulty, chest pain, fevers that do not break with antipyretic or any other concerning symptoms as reviewed on patient education handout. Patient verbalizes understanding and is agreeable to treatment plan. Patient left in stable condition Jul, Other Additional time spent conducting pre-visit phone call, screening for symptoms, instructions on social distancing, application and removal of PPE, and cleaning of examination room, equipment and supplies was preformed. Patient education given for testing methodology and results. Patient care instructions given in writting by [facility] Care At Home document [facility] Other History general Narrative - Reported Note Date & Type Note Facility History general Narrative - Reported Type Medical History high blood pressure Surgical History cyst on head Hospitalization History pnemonia Hospitalization History stress related [facility] Other Reason for Referral Status Reason Specialty Diagnoses / Procedures Referred By Contact Referred To Contact Pending Review Radiology Diagnoses Breast lump Procedures US BREAST COMPLETE LEFT Joe Musa MD [address] [place] [address] Status Reason Specialty Diagnoses / Procedures Referred By Contact Referred To Contact Pending Review Radiology Diagnoses Generalized abdominal pain Procedures CT ABDOMEN PELVIS W IV CONTRAST Additional Contrast? Oral Joe Musa MD [address] [place] [address] Status Reason Specialty Diagnoses / Procedures Referre d By Contact Referred To Contact Closed Radiology Diagnoses Lump or mass in breast Procedures ADAL KAYCEE DIGITAL DIAGNOSTIC BILATERAL Joe Musa MD [address] [place] [address] Assessments Diagnosis Breast lump Lump or mass in breast Diagnosis Generalized abdominal pain Abdominal pain, generalized Diagnosis Lump in central portion of left breast Diagnosis Lump or mass in breast Summary Purpose Family History No Family History Records FoundNo Family History Records FoundNo Family History Records FoundNo Family History Records Found Advance Directives No Advanced Directives Records FoundNo Advanced Directives Records FoundNo Advanced Directives Records FoundNo Advanced Directives Records Found Additional Source Comments Reason for Visit (unrecogniz ed section and content) Status Reason Specialty Diagnoses / Procedures Referre d By Contact Referred To Contact Closed Radiology Diagnoses Unspecified lump in unspecified breast Procedures US BREAST COMP Joe Musa MD [address] [place] [address] [facility] [address] [id number] Status Reason Specialty Diagnoses / Procedures Referre d By Contact Referred To Contact Closed Radiology Diagnoses Generalized abdominal pain Procedures HC CT ABDOMEN PELVIS W CONTRAST Joe Musa MD [address] [place] [address] [address] [facility] [address] [place] [address] Status Reason Specialty Diagnoses / Procedures Referred By Contact Referred To Contact Authorized Radiology Diagnoses Unspecified lump in unspecified breast Procedures US BREAST COMP Joe Musa MD [address] [place] [id number] [facility] [address] [place] [address] Status Reason Specialty Diagnoses / Procedures Referre d By Contact Referred To Contact Closed Radiology Diagnoses Lump or mass in breast Procedures ADAL KAYCEE DIGITAL DIAGNOSTIC BILATERAL Musa, Joe Parikh MD [address] [place] [address] (unrecognized sect ion and content) No Status Records FoundNo Status Records FoundNo Status Records FoundNo Status Records Found INFORMATION SOURCE (unrecogn ized section and content) DATE CREATED AUTHOR 06/10/2020 [facility] DATE CREATED AUTHOR AUTHOR'S ORGANIZ ATION 12/13/2022 [facility] DATE CREATED AUTHOR AUTHOR'S ORGANIZ ATION 12/18/2022 [facility] DATE CREATED AUTHOR AUTHOR'S ORGANIZ ATION 01/24/2023 [facility] FOR RECORDS PERTAINING TO PATIENTS WHO ARE OR HAVE BEEN ENROLLED IN A CHEMICAL DEPENDENCY/SUBSTANCEABUSE PROGRAM, SOME INFORMATION MAY BE OMITTED. This clinical summary was aggregated from multiple sources. Caution should be exercised in using it in the provision of clinical care. This summary normalizes information from multiple sources, and as a consequence, information in this document may materially change the coding, format and clinical context of patient data. In addition, data may be omitted in some cases. CLINICAL DECISIONS SHOULD BE BASED ON THE PRIMARY CLINICAL RECORDS. [employer] provides no warranty or guarantee of the accuracy or completeness of information in this document.
== END 2023-05-19 09:51 | disposition home or self-care (01) ==
LOC: SLEEP 09:50
PROVIDERS: PCP Internal Medicine; Visit Provider Internal Medicine
DX: G47.33 Obstructive sleep apnea (adult) (pediatric) (principal)
CPT/HCPCS: 95806

== ENCOUNTER 2023-06-23 09:39 | Emergency (ER) | payer MEDICARE, SELFPAY ==
[2023-06-23 09:42] VITALS: BP 109/69; PULSE 70; RESP 16; TEMP 36.7; O2SAT 96; BMI 32.9
--- NOTE | 2023-06-23 09:50 | XR_ITS ---
The [address] [address] Patient Name: BIPIN ULLOA MRN: [id number] date: 1955 Sex: M Assigned Patient Location: ED.MAIN Current Patient Location: ER Accession/Order Number: [id number] Exam Date: 06/23/2023 10:00 Report Date: 06/23/2023 10:46 At the request of: MAGGIE LIU Procedure: XR abdomen 1V EXAM: XR abdomen 1V HISTORY: CONSTIPATION COMPARISON: None TECHNIQUE: AP supine view the abdomen was obtained. FINDINGS: There is air seen in large and small bowel loops. No evidence of bowel obstruction. No obvious increased fecal load in the colon or rectum. Bowel gas pattern appears grossly nonspecific. Moderate degenerative changes at the lower lumbar level with mild changes otherwise in the lumbar spine and visualized lower thoracic spine. Mild degenerative changes about the hip joints. XR/XR abdomen 1V IMPRESSION: Grossly nonspecific abdomen. No obvious increased fecal load in the colon. Follow-up as needed. Electronically authenticated by: MARILU VASQUEZ Date: 06/23/2023 10:46
--- NOTE | 2023-06-23 09:59 | ED.GENADUL1 ---
HPI - General Adult General Chief complaint: Abdominal Pain Stated complaint: CONSTIPATION Time Seen by Provider: 06/23/23 09:55 Source: patient and family Mode of arrival: walk-in Limitations: no limitations History of Present Illness HPI narrative: 67-year-old male presents to the emergency department for possible constipation. He reports he hasn't had a good bowel movement two weeks. He's been having small amounts of liquid stool. She's tried magnesium citrate and Dulcolax and MiraLAX and this has not helped. No complaints of abdominal pain or vomiting. No new medications. Related Data Home Medications Medication Instructions Recorded Confirmed albuterol sulfate 2.5 mg/3 mL 2.5 mg inhalation Q6H PRN 04/24/23 04/24/23 (0.083 %) solution for nebulization shortness of breath or wheezing amlodipine 5 mg tablet 5 mg PO DAILY 04/24/23 04/24/23 aspirin 81 mg tablet,delayed 81 mg PO DAILY 04/24/23 04/24/23 release (Adult Low Dose Aspirin) atorvastatin 10 mg tablet 10 mg PO DAILY 04/24/23 04/24/23 cholecalciferol (vitamin D3) 50 50 mcg PO DAILY 04/24/23 04/24/23 mcg (2,000 unit) capsule (Vitamin D3) fluticasone 250 mcg-salmeterol 50 1 inh inhalation BID 04/24/23 04/24/23 mcg/dose blistr powdr for inhalation (Wixela Inhub) hydroxychloroquine 200 mg tablet 200 mg PO BID 04/24/23 04/24/23 lisinopril 40 mg tablet 40 mg PO DAILY 04/24/23 04/24/23 metoprolol tartrate 50 mg tablet 75 mg PO Q12H 04/24/23 04/24/23 pantoprazole 40 mg tablet,delayed 40 mg PO Q12H 04/24/23 04/24/23 release sulfasalazine 500 mg tablet 1 g PO Q12H 04/24/23 04/24/23 Previous Rx's Medication Instructions Recorded cefdinir 300 mg capsule 300 mg PO BID 10 days #20 caps 04/26/23 nirmatrelvir 300 mg (150 mg 1 ea PO BID #1 ea 04/26/23 x2)-ritonavir 100 mg tablet,dose pack (Paxlovid) prednisone 10 mg tablets in a dose 10 mg PO DAILY #39 ea 04/26/23 pack Allergies Allergy/AdvReac Type Severity Reaction Status Date / Time azithromycin [From Zithromax] Allergy Unknown Verified 06/23/23 09:48 Review of Systems ROS Narrative A ten point review of systems is negative except as noted above. [facility] Medical History (Updated 06/23/23 @ 13:18 by Juan R Doran MD) GERD (gastroesophageal reflux disease) ?K21.9 - Gastro-esophageal reflux disease without esophagitis (ICD-10) Hyperlipidemia ?E78.5 - Hyperlipidemia, unspecified (ICD-10) Benign essential HTN ?I10 - Essential (primary) hypertension (ICD-10) COPD (chronic obstructive pulmonary disease) ?J44.9 - Chronic obstructive pulmonary disease, unspecified (ICD-10) Rheumatoid arthritis ?M06.9 - Rheumatoid arthritis, unspecified (ICD-10) Acute infective exacerbation of chronic obstructive airway disease ?J44.1 - Chronic obstructive pulmonary disease with (acute) exacerbation (ICD-10) Social History Smoking status: Former smoker Exam Narrative Exam Narrative: Nurses note and vital signs reviewed and patient is not hypoxic. General: The patient appears well and in no apparent distress. Patient is resting comfortably on cart. Skin: Warm, dry, no pallor noted. There is no rash noted. Head: Normocephalic, atraumatic Eye: Normal conjunctiva, no drainage Ears, Nose, Mouth, and Throat: oral mucosa is moist. Nares patent. Cardiovascular: Regular Rate and Rhythm Respiratory: Patient is in no distress, no accessory muscle use, lungs are clear to auscultation, no wheezing, rales or rhonchi Back: non-tender GI: soft and nontender and nondistended. No masses Musculoskeletal: The patient has no evidence of calf tenderness, no pitting edema, symmetrical pulses noted bilaterally Neurological: A&O, normal speech Psychiatric: Cooperative Constitutional Vital Signs, click to edit/add: Last Vital Signs Temp 98.1 F 06/23/23 09:42 Pulse 70 06/23/23 09:42 Resp 14 06/23/23 10:32 BP 109/69 06/23/23 09:42 Pulse Ox 96 06/23/23 09:42 O2 Del Method Room Air 06/23/23 09:42 Course Vital Signs Vital signs: Vital Signs Temperature 98.1 F 06/23/23 09:42 Pulse Rate 70 06/23/23 09:42 Respiratory Rate 16 06/23/23 09:42 Blood Pressure 109/69 06/23/23 09:42 Pulse Oximetry 96 06/23/23 09:42 Oxygen Delivery Method Room Air 06/23/23 09:42 Temperature 98.1 F 06/23/23 09:42 Pulse Rate 70 06/23/23 09:42 Respiratory Rate 14 06/23/23 10:32 Blood Pressure 109/69 06/23/23 09:42 Pulse Oximetry 96 06/23/23 09:42 Oxygen Delivery Method Room Air 06/23/23 09:42 Medical Decision Making MDM Narrative Medical decision making narrative: blood work is essentially negative and CAT scan per radiologist suggests the possibility of gastroenteritis. The patient is not constipated. He is able to be discharged home and he'll follow-up with his doctor. He had a colonoscopy about 4-1/2 years ago. Treatment diagnosis and follow-uup were discussed with the patient. Differential Diagnosis Differential Diagnosis: constipation, gastritis, diverticulitis Lab Data Lab results reviewed: Yes I reviewed the patient's lab results Labs: Lab Results 06/23/23 Range/Units 11:00 WBC 5.9 (4.0-11.0) 10^3/uL RBC 4.48 L (4.70-6.10) 10^6/uL Hgb 13.6 L (14.0-18.0) g/dL Hct 40.6 L (42.0-54.0) % MCV 90.6 (80.0-94.0) fL MCH 30.4 (25.9-34.0) pg MCHC 33.5 (29.9-35.2) g/dL RDW 13.0 (11.0-15.0) % Plt Count 235 (150-450) 10^3/uL MPV 9.6 (9.5-13.5) fL Neut % (Auto) 46.9 (43.0-75.0) % Lymph % (Auto) 31.1 (20.5-60.0) % [place] % (Auto) 11.7 (1.7-12.0) % Eos % (Auto) 8.8 H (0.9-7.0) % Baso % (Auto) 1.2 (0.2-2.0) % Neut # (Auto) 2.8 (1.4-6.5) 10^3/uL Lymph # (Auto) 1.8 (1.2-3.8) 10^3/uL [place] # (Auto) 0.7 (0.3-0.8) 10^3/uL Eos # (Auto) 0.5 (0.0-0.7) 10^3/uL Baso # (Auto) 0.1 (0.0-0.1) 10^3/uL Abs Immat Gran (auto) 0.02 (0.00-0.03) 10^3/uL Imm/Tot Granulo (auto) 0.3 (0.0-0.5) % Sodium 135 L (136-145) mmol/L Potassium 4.4 (3.5-5.1) mmol/L Chloride 97 L (98-107) mmol/L Carbon Dioxide 32.3 H (21.0-32.0) mmol/L Anion Gap 10.1 BUN 4.0 L (7.0-18.0) mg/dL Creatinine 0.93 (0.70-1.30) mg/dL Est GFR ( Amer) >60 (>=60) Est GFR (Non-Af Amer) >60 (>=60) BUN/Creatinine Ratio 4.3 Glucose 110 H (74-106) mg/dL Calcium 9.4 (8.5-10.1) mg/dL Imaging Data CT scan - abdomen: Radiologist's impression: Procedure: CT abdomen pelvis w con EXAM: CT abdomen pelvis w con HISTORY: abd pain COMPARISON: Abdomen study dated 06/23/2023 TECHNIQUE: CT abdomen and CT pelvis studies were performed with the use of intravenous contrast. Multiple axial images were obtained. Reformatted coronal and sagittal images were obtained and reviewed. FINDINGS: Abdomen: Mild elevation of the right hemidiaphragm. Mild atelectatic and/or fibrotic changes in the right lower lung field with minimal similar changes in the left lower lung field. Views of the liver and spleen fail to demonstrate evidence of focal mass in either organ. Gallbladder is contracted, no obvious gallbladder wall thickening or pericholecystic fluid. Mild atrophy of the pancreas without focal mass or ductal dilatation. Adrenal glands appear grossly unremarkable. Mild nonspecific wall thickening of the stomach. Retained fluid within portions of the colon. Correlate for possible mild gastroenteritis. No evidence of bowel obstruction. Atherosclerotic calcifications within portions of the abdominal aorta. No evidence of aneurysm. No evidence of adenopathy in the retroperitoneum. No evidence of obstructive uropathy. Area of decreased attenuation laterally in the right kidney compatible with cysts measuring 1.5 cm. Pelvis: Tiny fat filled umbilical hernia without bowel content. There is mild to moderate bladder wall thickening which is nonspecific, correlate for possible cystitis. Prostate gland is grossly within normal limits for size. Perirectal fat planes appear grossly intact. Retained fluid within the rectum which is nonspecific, correlate for mild gastroenteritis. Atherosclerotic calcifications within portions of the iliofemoral arteries. No evidence of aneurysm. No evidence of adenopathy. The appendix is visualized and appears unremarkable. Emhd-hm-zonfwcmt degenerative changes in the visualized dorsal spine and lumbar spine. Small area of sclerosis in the right femoral head compatible with bone island. Mild to moderate size fat filled right inguinal hernia without bowel content. IMPRESSION: CT abdomen and CT pelvis studies demonstrate findings which can be correlated for mild gastroenteritis. No evidence of bowel obstruction. Ksnt-zs-sujmurdu wall thickening of the bladder which is nonspecific, correlate for possible cystitis. Likely cyst in the lateral right kidney. Tiny fat filled umbilical hernia. Ddbr-id-[id number] size fat filled right inguinal hernia. Electronically authenticated by: MARILU VASQUEZ Date: 06/23/2023 12:27 Procedure: XR abdomen 1V EXAM: XR abdomen 1V HISTORY: CONSTIPATION COMPARISON: None TECHNIQUE: AP supine view the abdomen was obtained. FINDINGS: There is air seen in large and small bowel loops. No evidence of bowel obstruction. No obvious increased fecal load in the colon or rectum. Bowel gas pattern appears grossly nonspecific. Moderate degenerative changes at the lower lumbar level with mild changes otherwise in the lumbar spine and visualized lower thoracic spine. Mild degenerative changes about the hip joints. IMPRESSION: Grossly nonspecific abdomen. No obvious increased fecal load in the colon. Follow-up as needed. Electronically authenticated by: MARILU VASQUEZ Date: 06/23/2023 10:46 Discharge Plan Discharge Chief Complaint: Abdominal Pain Clinical Impression: Gastroenteritis Patient Disposition: Home, Self-Care Time of Disposition Decision: 13:18 Condition: Good Mode of Transportation: Private Vehicle Prescriptions / Home Meds: No Action sulfasalazine 500 mg tablet 1 g PO Q12H hydroxychloroquine 200 mg tablet 200 mg PO BID pantoprazole 40 mg tablet,delayed release (DR/EC) 40 mg PO Q12H metoprolol tartrate 50 mg tablet 75 mg PO Q12H atorvastatin 10 mg tablet 10 mg PO DAILY cholecalciferol (vitamin D3) [Vitamin D3] 50 mcg (2,000 unit) capsule 50 mcg PO DAILY amlodipine 5 mg tablet 5 mg PO DAILY lisinopril 40 mg tablet 40 mg PO DAILY aspirin [Adult Low Dose Aspirin] 81 mg tablet,delayed release (DR/EC) 81 mg PO DAILY albuterol sulfate 2.5 mg /3 mL (0.083 %) solution for nebulization 2.5 mg inhalation Q6H PRN (Reason: shortness of breath or wheezing) fluticasone propion-salmeterol [Wixela Inhub] 250-50 mcg/dose blister with device 1 inh inhalation BID Paxlovid 300 mg (150 mg x 2)-100 mg Tablets,Dose Pack 1 ea PO BID Qty: 1 0RF prednisone 10 mg tablets,dose pack 10 mg PO DAILY Qty: 39 0RF Rx Instructions: 6 PO daily x 3 days, then 4 PO daily x 3 days, then 2 PO daily x 3 days, then 1 PO daily x 3 days cefdinir 300 mg capsule 300 mg PO BID 10 Days Qty: 20 0RF Instructions: Gastroenteritis (ED) Stand Alone Forms: Portal Instructions Referrals: Luis Granado DO [Physician] - 1 week
[2023-06-23 10:32] VITALS: RESP 14
--- NOTE | 2023-06-23 10:52 | CT_ITS ---
[address] [address] Patient Name: BIPIN ULLOA MRN: [id number] date: 1955 Sex: M Assigned Patient Location: ER Current Patient Location: ER Accession/Order Number: [id number] Exam Date: 06/23/2023 11:50 Report Date: 06/23/2023 12:27 At the request of: MAGGIE LIU Procedure: CT abdomen pelvis w con EXAM: CT abdomen pelvis w con HISTORY: abd pain COMPARISON: Abdomen study dated 06/23/2023 TECHNIQUE: CT abdomen and CT pelvis studies were performed with the use of intravenous contrast. Multiple axial images were obtained. Reformatted coronal and sagittal images were obtained and reviewed. FINDINGS: Abdomen: Mild elevation of the right hemidiaphragm. Mild atelectatic and/or fibrotic changes in the right lower lung field with minimal similar changes in the left lower lung field. Views of the liver and spleen fail to demonstrate evidence of focal mass in either organ. Gallbladder is contracted, no obvious gallbladder wall thickening or pericholecystic fluid. Mild atrophy of the pancreas without focal mass or ductal dilatation. Adrenal glands appear grossly unremarkable. Mild nonspecific wall thickening of the stomach. Retained fluid within portions of the colon. Correlate for possible mild gastroenteritis. No evidence of bowel obstruction. Atherosclerotic calcifications within portions of the abdominal aorta. No evidence of aneurysm. No evidence of adenopathy in the retroperitoneum. No evidence of obstructive uropathy. Area of decreased attenuation laterally in the right kidney compatible with cysts measuring 1.5 cm. Pelvis: Tiny fat filled umbilical hernia without bowel content. There is mild to moderate bladder wall thickening which is nonspecific, correlate for possible cystitis. Prostate gland is grossly within normal limits for size. Perirectal fat planes appear grossly intact. Retained fluid within the rectum which is nonspecific, correlate for mild gastroenteritis. Atherosclerotic calcifications within portions of the iliofemoral arteries. No evidence of aneurysm. No evidence of adenopathy. The appendix is visualized and appears unremarkable. Eple-tn-xhyvhgzl degenerative changes in the visualized dorsal spine and lumbar spine. Small area of sclerosis in the right femoral head compatible with bone island. Mild to moderate size fat filled right inguinal hernia without bowel content. CT/CT abdomen pelvis w con IMPRESSION: CT abdomen and CT pelvis studies demonstrate findings which can be correlated for mild gastroenteritis. No evidence of bowel obstruction. Ltec-ed-auhzafqu wall thickening of the bladder which is nonspecific, correlate for possible cystitis. Likely cyst in the lateral right kidney. Tiny fat filled umbilical hernia. Yeem-ny-agmxrdmb size fat filled right inguinal hernia. Electronically authenticated by: MARILU VASQUEZ Date: 06/23/2023 12:27
[2023-06-23 11:31] LABS: Basophils Absolute Auto 0.1 10^3/uL (0.0-0.1); Basophils Percent Auto 1.2 % (0.2-2.0); Eosinophils Absolute Auto 0.5 10^3/uL (0.0-0.7); Eosinophils Percent Auto 8.8 % (0.9-7.0); Hematocrit 40.6 % (42.0-54.0); Hemoglobin 13.6 g/dL (14.0-18.0); Immature Granulocytes Abs Auto 0.02 10^3/uL (0.00-0.03); Immature Granulocytes Pct Auto 0.3 % (0.0-0.5); Lymphocytes Absolute Auto 1.8 10^3/uL (1.2-3.8); Lymphocytes Percent Auto 31.1 % (20.5-60.0); Mean Corpuscular HGB Conc 33.5 g/dL (29.9-35.2); Mean Corpuscular Hemoglobin 30.4 pg (25.9-34.0); Mean Corpuscular Volume 90.6 fL (80.0-94.0); Mean Platelet Volume 9.6 fL (9.5-13.5); Monocytes Absolute Auto 0.7 10^3/uL (0.3-0.8); Monocytes Percent Auto 11.7 % (1.7-12.0); Neutrophils Absolute Auto 2.8 10^3/uL (1.4-6.5); Neutrophils Percent Auto 46.9 % (43.0-75.0); Platelet Count 235 10^3/uL (150-450); Red Blood Count 4.48 10^6/uL (4.70-6.10); White Blood Count 5.9 10^3/uL (4.0-11.0)
[2023-06-23 11:40] LABS: Anion Gap 10.1; BUN Creatinine Ratio 4.3; Calcium 9.4 mg/dL (8.5-10.1); Carbon Dioxide 32.3 mmol/L (21.0-32.0); Chloride 97 mmol/L (98-107); Estimated GFR (African America >60 (>=60); Estimated GFR (Non-African Ame >60 (>=60); Glucose 110 mg/dL (74-106); Potassium 4.4 mmol/L (3.5-5.1); Sodium 135 mmol/L (136-145)
[2023-06-23 13:29] VITALS: BP 122/69; PULSE 64; RESP 18; O2SAT 96
== END 2023-06-23 13:31 | disposition home or self-care (01) ==
PROVIDERS: Emergency Provider Emergency Medicine; PCP Family Medicine
DX: K52.9 Noninfective gastroenteritis and colitis, unspecified (principal); Z79.82 Long term (current) use of aspirin; Z79.899 Other long term (current) drug therapy; K21.9 Gastro-esophageal reflux disease without esophagitis; E78.5 Hyperlipidemia, unspecified; I10 Essential (primary) hypertension; J44.9 Chronic obstructive pulmonary disease, unspecified; M06.9 Rheumatoid arthritis, unspecified; Z87.891 Personal history of nicotine dependence
CPT/HCPCS: 36415; 74018; 74177; 80048; 85025; 99285; Q9967

== ENCOUNTER 2023-09-24 10:30 | Emergency (ER) | payer MEDICARE, SELFPAY ==
[2023-09-24] VITALS (15 sets, daily range): BP systolic 136–181; BP diastolic 74–102; PULSE 66–75; RESP 15–24; TEMP 37.4; O2SAT 91–95; BMI 34.0
--- NOTE | 2023-09-24 10:51 | XR_ITS ---
The [address] [address] Patient Name: BIPIN ULLOA MRN: [id number] date: 1955 Sex: M Assigned Patient Location: ER Current Patient Location: ER Accession/Order Number: [id number] Exam Date: 09/24/2023 11:07 Report Date: 09/24/2023 11:26 At the request of: MAGGIE LIU Procedure: XR chest 1V EXAM: XR chest 1V HISTORY: Hypertension COMPARISON: 04/25/2023. TECHNIQUE: Chest one view portable FINDINGS: Elevated right hemidiaphragm is stable, with mild compressive right lower lobe atelectasis. No lobar consolidation, effusion, or pneumothorax. Pulmonary vasculature is normal. Heart size within normal limits. XR/XR chest 1V IMPRESSION: 1. Stable chest without change in elevated right hemidiaphragm and compressive right lower lobe atelectasis. No acute cardiopulmonary disease. Electronically authenticated by: KRUPA CHACON Date: 09/24/2023 11:26
--- NOTE | 2023-09-24 10:51 | ECG_ITS ---
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
--- NOTE | 2023-09-24 10:52 | ED_ITS ---
HPI - General Adult General Chief complaint: Shortness of Breath/Dyspnea Stated complaint: HIGH BLOOD PRESSURE Time Seen by Provider: 09/24/23 10:32 Source: patient Mode of arrival: walk-in Limitations: no limitations History of Present Illness HPI narrative: 67-year-old male presents for elevated blood pressure. He took his blood pressure medication this morning, about 2 hours ago and he did not miss any doses yesterday. He did not have any pain in his chest but described the discomfort. He is worried his sodium might be low, it was low in April of last year and he had similar symptoms. No fever or back pain or cough. Related Data Home Medications ?Medication ?Instructions ?Recorded ?Confirmed albuterol sulfate 2.5 mg/3 mL 2.5 mg inhalation Q6H PRN 04/24/23 09/24/23 (0.083 %) solution for nebulization shortness of breath or wheezing amlodipine 5 mg tablet 5 mg PO DAILY 04/24/23 09/24/23 aspirin 81 mg tablet,delayed 81 mg PO DAILY 04/24/23 09/24/23 release (Adult Low Dose Aspirin) atorvastatin 10 mg tablet 10 mg PO DAILY 04/24/23 09/24/23 cholecalciferol (vitamin D3) 50 50 mcg PO DAILY 04/24/23 09/24/23 mcg (2,000 unit) capsule (Vitamin D3) fluticasone 250 mcg-salmeterol 50 1 inh inhalation BID 04/24/23 09/24/23 mcg/dose blistr powdr for inhalation (Wixela Inhub) hydroxychloroquine 200 mg tablet 200 mg PO BID 04/24/23 09/24/23 lisinopril 40 mg tablet 40 mg PO DAILY 04/24/23 09/24/23 metoprolol tartrate 50 mg tablet 75 mg PO Q12H 04/24/23 09/24/23 pantoprazole 40 mg tablet,delayed 40 mg PO Q12H 04/24/23 09/24/23 release sulfasalazine 500 mg tablet 1 g PO Q12H 04/24/23 09/24/23 ramelteon 8 mg tablet 8 mg PO DAILY PRN sleep 09/24/23 09/24/23 tiotropium bromide 2.5 2 inh inhalation Q24H 09/24/23 09/24/23 mcg/actuation mist for inhalation (Spiriva Respimat) Allergies Allergy/AdvReac Type Severity Reaction Status Date / Time azithromycin [From Zithromax] Allergy Unknown Verified 06/23/23 09:48 Review of Systems ROS Narrative A ten point review of systems is negative except as noted above. [facility] Medical History (Updated 09/24/23 @ 12:02 by Juan R Doran MD) GERD (gastroesophageal reflux disease) ?K21.9 - Gastro-esophageal reflux disease without esophagitis (ICD-10) Hyperlipidemia ?E78.5 - Hyperlipidemia, unspecified (ICD-10) Benign essential HTN ?I10 - Essential (primary) hypertension (ICD-10) COPD (chronic obstructive pulmonary disease) ?J44.9 - Chronic obstructive pulmonary disease, unspecified (ICD-10) Rheumatoid arthritis ?M06.9 - Rheumatoid arthritis, unspecified (ICD-10) Acute infective exacerbation of chronic obstructive airway disease ?J44.1 - Chronic obstructive pulmonary disease with (acute) exacerbation (ICD-10) Social History Smoking status: Former smoker Exam Narrative Exam Narrative: Nurses note and vital signs reviewed and patient is not hypoxic. General: The patient appears well and in no apparent distress. Patient is resting comfortably on cart. Skin: Warm, dry, no pallor noted. There is no rash noted. Head: Normocephalic, atraumatic Eye: Normal conjunctiva, no drainage Ears, Nose, Mouth, and Throat: oral mucosa is moist. Nares patent. Cardiovascular: Regular Rate and Rhythm Respiratory: Patient is in no distress, no accessory muscle use, lungs are clear to auscultation, no wheezing, rales or rhonchi Back: non-tender, no CVA tenderness bilaterally to percussion. GI: Soft and nontender Musculoskeletal: The patient has no evidence of calf tenderness, no pitting edema, symmetrical pulses noted bilaterally Neurological: A&O, normal speech Psychiatric: Cooperative Constitutional Vital Signs, click to edit/add: Last Vital Signs Temp 99.4 F 09/24/23 10:33 Pulse 71 09/24/23 11:30 Resp 21 09/24/23 11:30 BP 144/84 H 09/24/23 11:30 Pulse Ox 94 L 09/24/23 11:30 O2 Del Method Room Air 09/24/23 10:33 Course Vital Signs Vital signs: Vital Signs Temperature 99.4 F 09/24/23 10:33 Pulse Rate 70 09/24/23 10:33 Respiratory Rate 20 09/24/23 10:33 Blood Pressure 181/95 H 09/24/23 10:33 Pulse Oximetry 95 09/24/23 10:33 Oxygen Delivery Method Room Air 09/24/23 10:33 Temperature 99.4 F 09/24/23 10:33 Pulse Rate 71 09/24/23 11:30 Respiratory Rate 21 09/24/23 11:30 Blood Pressure 144/84 H 09/24/23 11:30 Pulse Oximetry 94 L 09/24/23 11:30 Oxygen Delivery Method Room Air 09/24/23 10:33 Medical Decision Making MDM Narrative Medical decision making narrative: His workup is negative including the sodium and the troponin. His blood pressure has normalized and he is able to be discharged home. Findings are discussed thoroughly with the patient and his . Differential Diagnosis Differential Diagnosis: Hypertension, hyponatremia, medication side effect Lab Data Lab results reviewed: Yes I reviewed the patient's lab results Labs: Lab Results 09/24/23 Range/Units 10:45 WBC 9.5 (4.0-11.0) 10^3/uL RBC 4.80 (4.70-6.10) 10^6/uL Hgb 15.0 (14.0-18.0) g/dL Hct 44.5 (42.0-54.0) % MCV 92.7 (80.0-94.0) fL MCH 31.3 (25.9-34.0) pg MCHC 33.7 (29.9-35.2) g/dL RDW 12.1 (11.0-15.0) % Plt Count 227 (150-450) 10^3/uL MPV 9.5 (9.5-13.5) fL Neut % (Auto) 64.2 (43.0-75.0) % Lymph % (Auto) 21.2 (20.5-60.0) % Mobile % (Auto) 10.9 (1.7-12.0) % Eos % (Auto) 2.4 (0.9-7.0) % Baso % (Auto) 1.0 (0.2-2.0) % Neut # (Auto) 6.1 (1.4-6.5) 10^3/uL Lymph # (Auto) 2.0 (1.2-3.8) 10^3/uL Mobile # (Auto) 1.0 H (0.3-0.8) 10^3/uL Eos # (Auto) 0.2 (0.0-0.7) 10^3/uL Baso # (Auto) 0.1 (0.0-0.1) 10^3/uL Abs Immat Gran (auto) 0.03 (0.00-0.03) 10^3/uL Imm/Tot Granulo (auto) 0.3 (0.0-0.5) % Sodium 137 (136-145) mmol/L Potassium 3.6 (3.5-5.1) mmol/L Chloride 98 (98-107) mmol/L Carbon Dioxide 31.6 (21.0-32.0) mmol/L Anion Gap 11.0 BUN 15.0 (7.0-18.0) mg/dL Creatinine 0.93 (0.70-1.30) mg/dL Est GFR ( Amer) >60 (>=60) Est GFR (Non-Af Amer) >60 (>=60) BUN/Creatinine Ratio 16.1 Glucose 108 H (74-106) mg/dL Calcium 9.1 (8.5-10.1) mg/dL Troponin I High Sens <4.0 L (4.0-76.1) pg/mL Imaging Data Chest x-ray: Radiologist's impression: ITS Impressions Chest X-Ray 09/24/23 10:51 IMPRESSION: 1. Stable chest without change in elevated right hemidiaphragm and compressive right lower lobe atelectasis. No acute cardiopulmonary disease. Electronically authenticated by: KRUPA CHACON Date: 09/24/2023 11:26 ECG Data Attestation: I personally reviewed and interpreted this ECG as follows: (EKG on my interpretation shows normal sinus rhythm with a rate of 70 and no acute changes.) Discharge Plan Discharge Stand Alone Forms: Portal Instructions Chief Complaint: Shortness of Breath/Dyspnea Clinical Impression: Hypertension Patient Disposition: Home, Self-Care Time of Disposition Decision: 12:02 Condition: Good Mode of Transportation: Private Vehicle Prescriptions / Home Meds: No Action ramelteon 8 mg tablet 8 mg PO DAILY PRN (Reason: sleep) Spiriva Respimat 2.5 mcg/actuation mist 2 inh INHALATION Q24H sulfasalazine 500 mg tablet 1 g PO Q12H hydroxychloroquine 200 mg tablet 200 mg PO BID pantoprazole 40 mg tablet,delayed release (DR/EC) 40 mg PO Q12H metoprolol tartrate 50 mg tablet 75 mg PO Q12H atorvastatin 10 mg tablet 10 mg PO DAILY cholecalciferol (vitamin D3) [Vitamin D3] 50 mcg (2,000 unit) capsule 50 mcg PO DAILY amlodipine 5 mg tablet 5 mg PO DAILY lisinopril 40 mg tablet 40 mg PO DAILY aspirin [Adult Low Dose Aspirin] 81 mg tablet,delayed release (DR/EC) 81 mg PO DAILY albuterol sulfate 2.5 mg /3 mL (0.083 %) solution for nebulization 2.5 mg inhalation Q6H PRN (Reason: shortness of breath or wheezing) fluticasone propion-salmeterol [Wixela Inhub] 250-50 mcg/dose blister with device 1 inh inhalation BID Print Language: Mongolian Instructions: Hypertension (ED) Referrals: KURTIS MUSA DO [Primary Care Provider] - 1 week
[2023-09-24 11:00] LABS: Basophils Absolute Auto 0.1 10^3/uL (0.0-0.1); Eosinophils Absolute Auto 0.2 10^3/uL (0.0-0.7); Eosinophils Percent Auto 2.4 % (0.9-7.0); Hematocrit 44.5 % (42.0-54.0); Immature Granulocytes Abs Auto 0.03 10^3/uL (0.00-0.03); Immature Granulocytes Pct Auto 0.3 % (0.0-0.5); Lymphocytes Percent Auto 21.2 % (20.5-60.0); Mean Corpuscular HGB Conc 33.7 g/dL (29.9-35.2); Mean Corpuscular Hemoglobin 31.3 pg (25.9-34.0); Mean Corpuscular Volume 92.7 fL (80.0-94.0); Mean Platelet Volume 9.5 fL (9.5-13.5); Monocytes Percent Auto 10.9 % (1.7-12.0); Neutrophils Absolute Auto 6.1 10^3/uL (1.4-6.5); Neutrophils Percent Auto 64.2 % (43.0-75.0); Platelet Count 227 10^3/uL (150-450); Red Cell Distribution Width 12.1 % (11.0-15.0); White Blood Count 9.5 10^3/uL (4.0-11.0)
[2023-09-24 11:13] LABS: BUN Creatinine Ratio 16.1; Calcium 9.1 mg/dL (8.5-10.1); Carbon Dioxide 31.6 mmol/L (21.0-32.0); Chloride 98 mmol/L (98-107); Estimated GFR (African America >60 (>=60); Estimated GFR (Non-African Ame >60 (>=60); Glucose 108 mg/dL (74-106); Potassium 3.6 mmol/L (3.5-5.1); Sodium 137 mmol/L (136-145); Troponin I High Sensitivity <4.0 pg/mL (4.0-76.1)
== END 2023-09-24 12:17 | disposition home or self-care (01) ==
PROVIDERS: Emergency Provider Emergency Medicine; PCP Family Medicine
DX: I10 Essential (primary) hypertension (principal); K21.9 Gastro-esophageal reflux disease without esophagitis; E78.5 Hyperlipidemia, unspecified; J44.9 Chronic obstructive pulmonary disease, unspecified; M06.9 Rheumatoid arthritis, unspecified; Z87.891 Personal history of nicotine dependence; Z79.82 Long term (current) use of aspirin; Z79.899 Other long term (current) drug therapy
CPT/HCPCS: 36415; 71045; 80048; 84484; 85025; 93005; 99285

== ENCOUNTER 2023-10-16 10:15 | Outpatient (OUT) | payer MEDICARE, SELFPAY ==
--- OUTSIDE RECORDS SUMMARY | 2023-10-16 10:37 | XMS_ITS | CCD ---
Author Organization [facility] Care Team Providers Care Shagger Name Role Phone Joe Musa Primary Care Provider MUSA, JOE Referring Unavailable MUSA, JOE Primary Care Unavailable MUSA, JOE Referring Unavailable MUSA, JOE Primary Care Unavailable MUSA, JOE Referring Unavailable MUSA, JOE Primary Care Unavailable MUSA, JOE Referring Unavailable MUSA, JOE Primary Care Unavailable MUSA, JOE Referring Unavailable MUSA, JOE Primary Care Unavailable Jazmin Ortiz Unavailable MUSA, DR JOE Parikh Consulting Unavailable [...] MUSA, DR JOE Parikh Primary Care Unavailable MSUA, DR JOE Parikh Primary Care Unavailable MISC, DR REDDY Consulting Unavailable MISC, DR REDDY Attending Unavailable MISC, DR REDDY Admitting Unavailable MUSA, DR JOE Parikh Attending Unavailable MUSA, DR JOE Parikh Admitting Unavailable MUSA, DR JEO Parikh Primary Care Unavailable REQUEST, DR MARI LISTED Consulting Unavaila eda QUINN, DR HAMLET Parikh Attending Unavailable DENNIS ., DR NUHA Ortiz Consulting Unavailable CHEYENNE, DR HAMLET Parikh Admitting Unavailable MUSA, DR JOE Parikh Primary Care Unavailable WEST, DR KEVIN Wayne Consulting Unavailable NADERER, DR HAMLET Parikh Consulting Unavailable TREVON BHARDWAJ Consulting Unavailable SAMSA ., DARIN Consulting Unavailable GEORGE, KWAKU Consulting Unavailable SISTER, CHRISTOPH Consulting Unavailable MUSA, DR JOE Parikh Attending Unavailable MUSA, DR JOE Parikh Admitting Unavailable MUSA, DR JOE Parikh Primary Care Unavailable WEST, DR KEVIN Wayne Consulting Unavailable LENCHO, DR JOE Parikh Consulting Unavailable DARIN HALL Attending Unavailable DARIN HALL Admitting Unavailable LENCHO, DR JOE Parikh Primary Care Unavailable AL, DR GIAN Parikh Consulting Unavailable ATTILA Padron, DARIN Consulting Unavailable DR KEVIN STANLEY V Consulting Unavailable [facility] [place] [facility] [place] Admitting Unavailable LENCHO, DR JOE Parikh Primary Care Unavailable [facility] [place] Consulting Unavailable MARICANO NEWELL Attending Unavailable Allergies Allergy Classification Reported Allergen(s) Allergy Type Date of Onset Reaction(s) Facility (1 source) Azithromycin Drug Allergy 06-19-2022 [facility] Medications Current Medications Medication Drug Class(es) Dates Sig (Normalized) Sig (Original) [id number] 200 actuat albuterol 0.09 mg/actuat metered dose [...] left breast] Other aftercare (5 sources) Other alf (current) drug therapy; Translations: [OTH SNF CURRENT DRUG THERAPY] Onset: 07-03-2022 Episodic Other [...] Results Test Name Value Interpretation Reference Range Facility CBC, ALB, ALT, AST, ALK AND CREAon 08-13-2023 Albumin [Mass/Vol] 4.6 g/dL Normal (3.5 - 5.0) [facility] Comment on above: Order Comment: FACIL ITY: [facility] - [id number] Performed By: #### C BC/2A, MSEP, ANAFX, ACAX3, C3-C4, ESRCRP, TSHFX, VD25, CCP, RHF, URCA, HBSAG, HCV #### [facility] [address] [facility], [address] ALK PHOS 62 U/L Normal (38 - 126) [facility] Comment on above: Order Comment: FACIL ITY: [facility] - [id number] Performed By: #### C BC/2A, MSEP, ANAFX, ACAX3, C3-C4, ESRCRP, TSHFX, VD25, CCP, RHF, URCA, HBSAG, HCV #### [facility] [address] [facility], [address] ALT [Catalytic activity/Vol] 20 U/L Normal (1 - 45) [facility] Comment on above: Order Comment: FACIL ITY: [facility] - [id number] Performed By: #### C BC/2A, MSEP, ANAFX, ACAX3, C3-C4, ESRCRP, TSHFX, VD25, CCP, RHF, URCA, HBSAG, HCV #### [facility] [address] [facility], [address] AST [Catalytic activity/Vol] 28 U/L Normal (15 - 46) [facility] Comment on above: Order Comment: FACIL ITY: [facility] - [id number] Performed By: #### C BC/2A, MSEP, ANAFX, ACAX3, C3-C4, ESRCRP, TSHFX, VD25, CCP, RHF, URCA, HBSAG, HCV #### [facility] [address] [facility], [address] Creatinine [Mass/Vol] 0.65 mg/dL Low (0.66 - 1.25) [facility] Comment on above: Order Comment: FACIL ITY: [facility] - [id number] Performed By: #### C BC/2A, MSEP, ANAFX, ACAX3, C3-C4, ESRCRP, TSHFX, VD25, CCP, RHF, URCA, HBSAG, HCV #### [facility] [address] [facility], [address] GFR- AMER 148.3 ML/M1.7 Normal (60.0 - 161.8) [facility] Comment on above: Order Comment: FACIL ITY: [facility] - [id number] Performed By: #### C BC/2A, MSEP, ANAFX, ACAX3, C3-C4, ESRCRP, TSHFX, VD25, CCP, RHF, URCA, HBSAG, HCV #### [facility] [address] [facility], [address] GFR-NON AFRIC-AMER 122.5 ML/M1.7 Normal (60.0 - 133.8) [facility] Comment on above: Order Comment: FACIL ITY: [facility] - [id number] Performed By: #### C BC/2A, MSEP, ANAFX, ACAX3, C3-C4, ESRCRP, TSHFX, VD25, CCP, RHF, URCA, HBSAG, HCV #### [facility] [address] [facility], [id number] Hematocrit (Bld) [Volume fraction] 45.1 % Normal (42.0 - 52.0) [facility] Comment on above: Order Comment: FACIL ITY: [facility] - [id number] Performed By: #### C BC/2A, MSEP, ANAFX, ACAX3, C3-C4, ESRCRP, TSHFX, VD25, CCP, RHF, URCA, HBSAG, HCV #### [facility] [address] [facility], [id number] Hemoglobin (Bld) [Mass/Vol] 15.0 g/dL Normal (14.0 - 18.0) [facility] Comment on above: Order Comment: FACIL ITY: [facility] - [id number] Performed By: #### C BC/2A, MSEP, ANAFX, ACAX3, C3-C4, ESRCRP, TSHFX, VD25, CCP, RHF, URCA, HBSAG, HCV #### [facility] [address] [facility], [id number] MCH (RBC) [Entitic mass] 31.3 pg Normal (27.0 - 33.0) [facility] Comment on above: Order Comment: FACIL ITY: [facility] - [id number] Performed By: #### C BC/2A, MSEP, ANAFX, ACAX3, C3-C4, ESRCRP, TSHFX, VD25, CCP, RHF, URCA, HBSAG, HCV #### [facility] [address] [facility], [address] MCHC (RBC) [Mass/Vol] 33.3 g/dL Normal (30.0 - 37.0) [facility] Comment on above: Order Comment: FACIL ITY: [facility] - [id number] Performed By: #### C BC/2A, MSEP, ANAFX, ACAX3, C3-C4, ESRCRP, TSHFX, VD25, CCP, RHF, URCA, HBSAG, HCV #### [facility] [address] [facility], [address] MCV (RBC) [Entitic vol] 94.0 fL Normal (80.0 - 94.0) [facility] Comment on above: Order Comment: FACIL ITY: [facility] - [id number] Performed By: #### C BC/2A, MSEP, ANAFX, ACAX3, C3-C4, ESRCRP, TSHFX, VD25, CCP, RHF, URCA, HBSAG, HCV #### [facility] [address] [facility], [address] PLT 260 x10^3ul Normal (130 - 400) [facility] Comment on above: Order Comment: FACIL ITY: [facility] - [id number] Performed By: #### C BC/2A, MSEP, ANAFX, ACAX3, C3-C4, ESRCRP, TSHFX, VD25, CCP, RHF, URCA, HBSAG, HCV #### [facility] [address] [facility], [address] RBC 4.80 x10^6ul Normal (4.70 - 6.10) [facility] Comment on above: Order Comment: FACIL ITY: [facility] - [id number] Performed By: #### C BC/2A, MSEP, ANAFX, ACAX3, C3-C4, ESRCRP, TSHFX, VD25, CCP, RHF, URCA, HBSAG, HCV #### [facility] [address] [facility], [address] WBC 8.04 x10^3ul Normal (3.80 - 10.60) [facility] Comment on above: Order Comment: FACIL ITY: [facility] - [id number] Performed By: #### C BC/2A, MSEP, ANAFX, ACAX3, C3-C4, ESRCRP, TSHFX, VD25, CCP, RHF, URCA, HBSAG, HCV #### [facility] [address] [facility], [id number] SED RATE - CRPon 08-13-2023 CRP EXTENDED RANGE 1.75 MG/L Normal (0.00 - 3.20) [facility] Comment on above: Performed By: #### C BC/2A, MSEP, ANAFX, ACAX3, C3-C4, ESRCRP, TSHFX, VD25, CCP, RHF, URCA, HBSAG, HCV #### [facility] [address] [facility], [id number] SED RATE WEST. 7 MM/HR Normal (0 - 24) [facility] Comment on above: Performed By: #### C BC/2A, MSEP, ANAFX, ACAX3, C3-C4, ESRCRP, TSHFX, VD25, CCP, RHF, URCA, HBSAG, HCV #### [facility] [address] [facility], [id number] CBC, ALB, ALT, AST, ALK AND CREAon 01-23-2023 Albumin [Mass/Vol] 4.4 g/dL Normal (3.5 - 5.0) [facility] Comment on above: Order Comment: FACIL ITY: [facility] - [id number] Performed By: #### C BC/2A, MSEP, ANAFX, ACAX3, C3-C4, ESRCRP, TSHFX, VD25, CCP, RHF, URCA, HBSAG, HCV #### [facility] [address] [facility], [address] ALK PHOS 68 U/L Normal (38 - 126) [facility] Comment on above: Order Comment: FACIL ITY: [facility] - [id number] Performed By: #### C BC/2A, MSEP, ANAFX, ACAX3, C3-C4, ESRCRP, TSHFX, VD25, CCP, RHF, URCA, HBSAG, HCV #### [facility] [address] [facility], [address] ALT [Catalytic activity/Vol] 26 U/L Normal (1 - 45) [facility] Comment on above: Order Comment: FACIL ITY: [facility] - [id number] Performed By: #### C BC/2A, MSEP, ANAFX, ACAX3, C3-C4, ESRCRP, TSHFX, VD25, CCP, RHF, URCA, HBSAG, HCV #### [facility] [address] [facility], [address] AST [Catalytic activity/Vol] 34 U/L Normal (15 - 46) [facility] Comment on above: Order Comment: FACIL ITY: [facility] - [id number] Performed By: #### C BC/2A, MSEP, ANAFX, ACAX3, C3-C4, ESRCRP, TSHFX, VD25, CCP, RHF, URCA, HBSAG, HCV #### [facility] [address] [facility], [address] Creatinine [Mass/Vol] 0.71 mg/dL Normal (0.66 - 1.25) [facility] Comment on above: Order Comment: FACIL ITY: [facility] - [id number] Performed By: #### C BC/2A, MSEP, ANAFX, ACAX3, C3-C4, ESRCRP, TSHFX, VD25, CCP, RHF, URCA, HBSAG, HCV #### [facility] [address] [facility], [address] GFR- AMER 133.9 ML/M1.7 Normal (60.0 - 161.8) [facility] Comment on above: Order Comment: FACIL ITY: [facility] - [id number] Performed By: #### C BC/2A, MSEP, ANAFX, ACAX3, C3-C4, ESRCRP, TSHFX, VD25, CCP, RHF, URCA, HBSAG, HCV #### [facility] [address] [facility], [address] GFR-NON AFRIC-AMER 110.7 ML/M1.7 Normal (60.0 - 133.8) [facility] Comment on above: Order Comment: FACIL ITY: [facility] - [id number] Performed By: #### C BC/2A, MSEP, ANAFX, ACAX3, C3-C4, ESRCRP, TSHFX, VD25, CCP, RHF, URCA, HBSAG, HCV #### [facility] [address] [facility], [address] Hematocrit (Bld) [Volume fraction] 46.5 % Normal (42.0 - 52.0) [facility] Comment on above: Order Comment: FACIL ITY: [facility] - [id number] Performed By: #### C BC/2A, MSEP, ANAFX, ACAX3, C3-C4, ESRCRP, TSHFX, VD25, CCP, RHF, URCA, HBSAG, HCV #### [facility] [address] [facility], [address] Hemoglobin (Bld) [Mass/Vol] 15.0 g/dL Normal (14.0 - 18.0) [facility] Comment on above: Order Comment: FACIL ITY: [facility] - [id number] Performed By: #### C BC/2A, MSEP, ANAFX, ACAX3, C3-C4, ESRCRP, TSHFX, VD25, CCP, RHF, URCA, HBSAG, HCV #### [facility] [address] [facility], [address] MCH (RBC) [Entitic mass] 29.1 pg Normal (27.0 - 33.0) [facility] Comment on above: Order Comment: FACIL ITY: [facility] - [id number] Performed By: #### C BC/2A, MSEP, ANAFX, ACAX3, C3-C4, ESRCRP, TSHFX, VD25, CCP, RHF, URCA, HBSAG, HCV #### [facility] [address] [facility], [address] MCHC (RBC) [Mass/Vol] 32.3 g/dL Normal (30.0 - 37.0) [facility] Comment on above: Order Comment: FACIL ITY: [facility] - [id number] Performed By: #### C BC/2A, MSEP, ANAFX, ACAX3, C3-C4, ESRCRP, TSHFX, VD25, CCP, RHF, URCA, HBSAG, HCV #### [facility] [address] [facility], [address] MCV (RBC) [Entitic vol] 90.1 fL Normal (80.0 - 94.0) [facility] Comment on above: Order Comment: FACIL ITY: [facility] - [id number] Performed By: #### C BC/2A, MSEP, ANAFX, ACAX3, C3-C4, ESRCRP, TSHFX, VD25, CCP, RHF, URCA, HBSAG, HCV #### [facility] [address] [facility], [id number] (078) PLT 305 x10^3ul Normal (130 - 400) [facility] Comment on above: Order Comment: FACIL ITY: [facility] - [id number] Performed By: #### C BC/2A, MSEP, ANAFX, ACAX3, C3-C4, ESRCRP, TSHFX, VD25, CCP, RHF, URCA, HBSAG, HCV #### [facility] [address] [facility], [address] RBC 5.16 x10^6ul Normal (4.70 - 6.10) [facility] Comment on above: Order Comment: FACIL ITY: [facility] - [id number] Performed By: #### C BC/2A, MSEP, ANAFX, ACAX3, C3-C4, ESRCRP, TSHFX, VD25, CCP, RHF, URCA, HBSAG, HCV #### [facility] [address] [facility], [address] WBC 9.64 x10^3ul Normal (3.80 - 10.60) [facility] Comment on above: Order Comment: FACIL ITY: [facility] - [id number] Performed By: #### C BC/2A, MSEP, ANAFX, ACAX3, C3-C4, ESRCRP, TSHFX, VD25, CCP, RHF, URCA, HBSAG, HCV #### [facility] [address] [facility], [address] SED RATE - CRPon --2022 CRP EXTENDED RANGE 2.76 MG/L Normal (0.00 - 3.20) [facility] Comment on above: Performed By: #### C BC/2A, MSEP, ANAFX, ACAX3, C3-C4, ESRCRP, TSHFX, VD25, CCP, RHF, URCA, HBSAG, HCV #### [facility] [address] [facility], [address] SED RATE WEST. 15 MM/HR Normal (0 - 24) [facility] Comment on above: Performed By: #### C BC/2A, MSEP, ANAFX, ACAX3, C3-C4, ESRCRP, TSHFX, VD25, CCP, RHF, URCA, HBSAG, HCV #### [facility] [address] [facility], [address] VITAMIN D, 25 HYDROXYon - VITAMIN D, 25 51.3 NG/ML Normal (30.0 - 100.0) [facility] Comment on above: Result Comment: * * * VITAMIN D, 25 HYDROXY GENERAL GUIDELINE * * * DEFICIENCY = < OR = 20.0 NG/ML INSUFFICIENCY = 20.1 - 29.9 NG/ML SUFFICIENCY = 30.0 - 100.0 NG/ML TOXICITY = > 100.1 NG/ML Performed By: #### C BC/2A, MSEP, ANAFX, ACAX3, C3-C4, ESRCRP, TSHFX, VD25, CCP, RHF, URCA, HBSAG, HCV #### [facility] [address] [facility], [address] Office Visiton 12-18-2022 Follow-up visit [id number] Bipin Ulloa 1955 M Date Provider Department Center 12/18/2022 MARCIANO MEZA [facility] Family History Problem Relation Age of Onset Heart failure Father Coronary artery disease Father Family Status - Relation Status Age at Father Level of Service:86660 [place] OFFICE/OUTPATIENT ESTABLISHED LOW MDM 20-[address] [facility] FREE T3on 12-04-2022 FREE T3 2.98 pg/mlL Normal 2.18-3.98 [facility] Comment on above: Performed By: #### S EDR #### [facility] [address] [place] [address] Dr. Wilmer Francis FREE T4on 12-04-2022 Free T4 [Mass/Vol] 1.25 ng/dL Normal 0.76-1.46 [facility] Comment on above: Performed By: #### B MORTUARY TECHNICIAN #### [facility] [address] [place] [address] Dr. Wilmer Francis LIPID PROFILEon 12-04-2022 CHOL-HDL RATIO NORM SEE BELOW Normal [facility] Comment on above: Result Comment: 3.3 - 4.4 LOW RISK 4.4 - 7.1 AVERAGE RISK 7.1 - 11.0 MODERATE RISK >11.0 HIGH RISK Performed By: #### S EDR #### [facility] [address] [place] [address] Dr. Wilmer Francis Cholesterol [Mass/Vol] 137 mg/dL Normal <=200 [facility] Comment on above: Performed By: #### S EDR #### [facility] [address] [place] [address] Dr. Wilmer Francis Cholesterol in HDL [Mass/Vol] 53 mg/dL Normal 40-60 [facility] Comment on above: Performed By: #### S EDR #### [facility] [address] [address] [address] Wilmer Francis Cholesterol in LDL [Mass/Vol] 66.2 mg/dL Normal [facility] Comment on above: Performed By: #### S EDR #### [facility] [address] [address] [address] Wilmer Francis Cholesterol.total/Cho lesterol in HDL [Mass ratio] 2.6 {ratio} Normal [facility] Comment on above: Performed By: #### S EDR #### [facility] [address] [place] [address] Dr. Wilmer Francis HDL NORMAL > or = 60 mg/dl - LOW CARDIOVASCULAR RISK <40 mg/dl - HIGH CARDIOVASCULAR RISK Normal [facility] Comment on above: Performed By: #### S EDR #### [facility] [address] [address] [address] Wilmer Francis LDL CALC NORMAL SEE BELOW Normal [facility] Comment on above: Result Comment: <100 mg/dl OPTIMAL 100 - 129 mg/dl NEAR OR ABOVE OPTIMAL 130 - 159 mg/dl BORDERLINE HIGH 160 - 189 mg/dl HIGH >190 mg/dl VERY HIGH Performed By: #### S EDR #### [facility] [address] [place] [address] Dr. Wilmer Francis Triglyceride [Mass/Vol] 89 mg/dL Normal <=150 [facility] Comment on above: Performed By: #### S EDR #### [facility] [address] [address] [address] Wilmer Francis VLDL CALC 17.8 mg/dL Normal [facility] Comment on above: Performed By: #### S EDR #### [facility] [address] [place] [address] Dr. Wilmer Francis PROF 14(COMP METB)on 023 Albumin [Mass/Vol] 3.5 g/dL Normal 3.4-5.0 [facility] Comment on above: Performed By: #### S EDR #### [facility] [address] [address] [address] Wilmer Francis Albumin/Globulin [Mass ratio] 0.9 {ratio} Normal [facility] Comment on above: Performed By: #### S EDR #### [facility] [address] [address] [address] Wilmer Francis ALP [Catalytic activity/Vol] 76 U/L Normal 46-116 [facility] Comment on above: Performed By: #### S EDR #### [facility] [address] [address] [address] Wilmer Francis ALT [Catalytic activity/Vol] 25 U/L Normal 16-63 [facility] Comment on above: Performed By: #### S EDR #### [facility] [address] [place] [address] Dr. Wilmer Francis Anion gap [Moles/Vol] 12.6 mmol/L Normal [facility] Comment on above: Performed By: #### S EDR #### [facility] [address] [place] [address] Dr. Wilmer Francis AST [Catalytic activity/Vol] 17 U/L Normal 15-37 [facility] Comment on above: Performed By: #### S EDR #### [facility] [address] [place] [address] Dr. Wilmer Francis Bilirubin [Mass/Vol] 0.4 mg/dL Normal 0.2-1.0 [facility] Comment on above: Performed By: #### S EDR #### [facility] [address] [place] [address] Dr. Wilmer Francis Calcium [Mass/Vol] 9.5 mg/dL Normal 8.5-10.1 [facility] Comment on above: Performed By: #### S EDR #### [facility] [address] [place] [address] Dr. Wilmer Francis Chloride [Moles/Vol] 98 mmol/L Normal 98-107 [facility] Comment on above: Performed By: #### S EDR #### [facility] [address] [address] [address] Wilmer Francis CO2 [Moles/Vol] 31.0 mmol/L Normal 21.0-32.0 [facility] Comment on above: Performed By: #### S EDR #### [facility] [address] [place] [address] Dr. Wilmer Francis Creatinine [Mass/Vol] 1.13 mg/dL Normal 0.70-1.30 [facility] Comment on above: Performed By: #### S EDR #### [facility] [address] [place] [address] Dr. Wilmer Francis EGFR-AF MACEDONIAN >60 Normal >=60 [facility] Comment on above: Performed By: #### S EDR #### [facility] [address] [place] [address] Dr. Wilmer Francis EGFR-NON AF MACEDONIAN >60 Normal >=60 [facility] Comment on above: Performed By: #### S EDR #### [facility] [address] [place] [address] Dr. Wilmer Francis Globulin (S) [Mass/Vol] 4.1 g/dL Normal [facility] Comment on above: Performed By: #### S EDR #### [facility] [address] [place] [address] Dr. Wilmer Francis Glucose [Mass/Vol] 123 mg/dL Critically high 74-106 [facility] Comment on above: Performed By: #### S EDR #### [facility] [address] [place] [address] Dr. Wilmer Francis Potassium [Moles/Vol] 4.6 mmol/L Normal 3.5-5.1 [facility] Comment on above: Performed By: #### S EDR #### [facility] [address] [place] [address] Dr. Wilmer Francis Protein [Mass/Vol] 7.6 g/dL Normal 6.4-8.2 [facility] Comment on above: Performed By: #### S EDR #### [facility] [address] [place] [address] Dr. Wilmer Francis Sodium [Moles/Vol] 137 mmol/L Normal 136-145 [facility] Comment on above: Performed By: #### S EDR #### [facility] [address] [place] [address] Dr. Wilmer Francis Urea nitrogen [Mass/Vol] 14.0 mg/dL Normal 7.0-18.0 [facility] Comment on above: Performed By: #### S EDR #### [facility] [address] [place] [address] Dr. Wilmer Francis Urea nitrogen/Creatinine [Mass ratio] 12.4 mg/mg Normal [facility] Comment on above: Performed By: #### S EDR #### [facility] [address] [place] [address] Dr. Wilmer Francis TSHon 12-04-2022 TSH 0.479 uIU/mL Normal 0.358-3.740 [facility] Comment on above: Performed By: #### S EDR #### [facility] [address] [place] [address] Dr. Wilmer Francis ALBUMINon 11-28-2022 Albumin [Mass/Vol] 3.3 g/dL Critically low 3.4-5.0 [facility] Comment on above: Performed By: #### P RTELEC #### [facility] [address] [place] [address] Dr. Wilmer Francis ALKALINE PHOSPHAon ALP [Catalytic activity/Vol] 72 U/L Normal 46-116 [facility] Comment on above: Performed By: #### P RTELEC #### [facility] [address] [place] [address] Dr. Wilmer Francis CBC AUTO DIFFon 11-28-2022 BASO # 0.1 103/ul Normal 0.0-0.1 [facility] [place] Comment on above: Performed By: #### S EDR #### [facility] [address] [place] [address] Dr. Wilmer Francis Basophils/100 WBC (Bld) 0.7 % Normal 0.2-2.0 [facility] [place] Comment on above: Performed By: #### S EDR #### [facility] [address] [address] [address] Wilmer Francis EO # 0.8 103/ul Critically high 0.0-0.7 [facility] Comment on above: Performed By: #### S EDR #### [facility] [address] [address] [address] Wilmer Francis Eosinophils/100 WBC (Bld) 9.1 % Critically high 0.9-7.0 [facility] [place] Comment on above: Performed By: #### S EDR #### [facility] [address] [address] [address] Wilmer Francis Erythrocyte distribution width (RBC) [Ratio] 13.9 % Normal 11.0-15.0 [facility] Comment on above: Performed By: #### S EDR #### [facility] [address] [place] [address] Dr. Wilmer Francis Hematocrit (Bld) [Volume fraction] 39.4 % Critically low 42.0-54.0 [facility] [place] Comment on above: Performed By: #### S EDR #### [facility] [address] [place] [address] Dr. Wilmer Francis Hemoglobin (Bld) [Mass/Vol] 13.2 g/dL Critically low 14.0-18.0 [facility] [place] Comment on above: Performed By: #### S EDR #### [facility] [address] [address] [address] Wilmer Francis IG # 0.11 10e3/ul Critically high 0.00-0.03 [facility] Comment on above: Performed By: #### S EDR #### [facility] [address] [address] [address] Wilmer Francis IG % 1.3 % Critically high 0.0-0.5 [facility] Comment on above: Performed By: #### S EDR #### [facility] [address] [address] [address] Wilmer Francis LYMPH # 1.9 103/ul Normal 1.2-3.8 [facility] [place] Comment on above: Performed By: #### S EDR #### [facility] [address] [address] [address] Wilmer Francis Lymphocytes/100 WBC (Bld) 21.8 % Normal 20.5-60.0 [facility] Comment on above: Performed By: #### S EDR #### [facility] [address] [address] [address] Wilmer Francis MANUAL DIFF REQ NO Normal [facility] Comment on above: Performed By: #### S EDR #### [facility] [address] [address] [address] Wilmer Francis MCH (RBC) [Entitic mass] 28.3 pg Normal 25.9-34.0 [facility] Comment on above: Performed By: #### S EDR #### [facility] [address] [place] [address] Dr. Wilmer Francis MCHC (RBC) [Mass/Vol] 33.5 g/dL Normal 29.9-35.2 [facility] Comment on above: Performed By: #### S EDR #### [facility] [address] [address] [address] Wilmer Francis MCV (RBC) [Entitic vol] 84.5 fL Normal 80.0-94.0 [facility] Comment on above: Performed By: #### S EDR #### [facility] [address] [place] [address] Dr. Wilmer Francis MONO # 0.9 103/ul Critically high 0.3-0.8 [facility] Comment on above: Performed By: #### S EDR #### [facility] [address] [address] [address] Wilmer Francis Monocytes/100 WBC (Bld) 9.9 % Normal 1.7-12.0 [facility] Comment on above: Performed By: #### S EDR #### [facility] [address] [address] [address] Wilmer Francis NEUT # 4.9 103/ul Normal 1.4-6.5 [facility] Comment on above: Performed By: #### S EDR #### [facility] [address] [address] [address] Wilmer Francis Neutrophils/100 WBC (Bld) 57.2 % Normal 43.0-75.0 [facility] [place] Comment on above: Performed By: #### S EDR #### [facility] [address] [address] [address] Wilmer Francis Platelet mean volume (Bld) [Entitic vol] 8.3 fL Critically low 9.5-13.5 [facility] [place] Comment on above: Performed By: #### S EDR #### [facility] [address] [address] [address] Wilmer Francis PLT 329 103/ul Normal 150-450 [facility] [place] Comment on above: Performed By: #### S EDR #### [facility] [address] [address] [address] Wilmer Francis RBC 4.66 106/ul Critically low 4.70-6.10 [facility] Comment on above: Performed By: #### S EDR #### [facility] [address] [address] [address] Wilmer Francis WBC 8.6 103/ul Normal 4.0-11.0 [facility] Comment on above: Performed By: #### S EDR #### [facility] [address] [address] [address] Wilmer Francis CREATININEon 11-28-2022 Creatinine [Mass/Vol] 1.00 mg/dL Normal 0.70-1.30 [facility] Comment on above: Performed By: #### P RTELEC #### [facility] [address] [address] [address] Wilmer Francis EGFR-AF MACEDONIAN >60 Normal >=60 [facility] Comment on above: Performed By: #### P RTELEC #### [facility] [address] [address] [address] Wilmer Francis EGFR-NON AF MACEDONIAN >60 Normal >=60 [facility] Comment on above: Performed By: #### P RTELEC #### [facility] [address] [place] [address] Dr. Wilmer Francis CRPon 11-28-2022 CRP 2.5 mg/dL Critically high <=1.0 [facility] Comment on above: Performed By: #### P RTELEC #### [facility] [address] [place] [address] Dr. Wilmer Francis SED RATE WESTERGREN 2022 SED RATE 71 mm/hr Critically high <=20 [facility] Comment on above: Performed By: #### S EDR #### [facility] [address] [place] [address] Dr. Wilmer Francis SGOTon 11-28-2022 AST [Catalytic activity/Vol] 16 U/L Normal 15-37 [facility] [place] Comment on above: Performed By: #### P RTELEC #### [facility] [address] [place] [address] Dr. Wilmer Francis SGPTon 11-28-2022 ALT [Catalytic activity/Vol] 27 U/L Normal 16-63 [facility] Comment on above: Performed By: #### P RTELEC #### [facility] [address] [place] [address] ORBIT WO CONon 10-31-2022 CT ORBIT WO CON EXAMINATION: CT ORBIT WO CON HISTORY: Pain of right eye [...] KEVIN STANLEY Date: 2022-10-31 09:47 Normal [facility] CT CHEST WO CONon 10-22-2022 CT CHEST WO CON EXAMINATION: CT CHEST WO CON HISTORY: Solitary nodule of lung [...] by: GIAN MELENDEZ Date: 2022-10-22 12:17 Normal [facility] JUICE WITH REFLEX MELISSA TESTSon 09-09-2022 JUICE by HEp-2 CELLS Negative Normal (NEG - NEG) [facility] Comment on above: Performed By: #### C BC/2A, MSEP, ANAFX, ACAX3, C3-C4, ESRCRP, TSHFX, VD25, CCP, RHF, URCA, HBSAG, HCV #### [facility] [address] [facility], [address] JUICE TITER 1:40 Normal (<1:40 - 1:40) [facility] Comment on above: Performed By: #### C BC/2A, MSEP, ANAFX, ACAX3, C3-C4, ESRCRP, TSHFX, VD25, CCP, RHF, URCA, HBSAG, HCV #### [facility] [address] [facility], [address] MELISSA-6 REFLEXED NO Normal () [facility] Comment on above: Performed By: #### C BC/2A, MSEP, ANAFX, ACAX3, C3-C4, ESRCRP, TSHFX, VD25, CCP, RHF, URCA, HBSAG, HCV #### [facility] [address] [place] [address] [facility], [address] C3 AND C4on 09-09-2022 C 3 138 MG/DL Normal (88 - 165) [facility] Comment on above: Performed By: #### C BC/2A, MSEP, ANAFX, ACAX3, C3-C4, ESRCRP, TSHFX, VD25, CCP, RHF, URCA, HBSAG, HCV #### [facility] [address] [place] [address] [facility], [address] C 4 21 MG/DL Normal (14 - 44) [facility] Comment on above: Performed By: #### C BC/2A, MSEP, ANAFX, ACAX3, C3-C4, ESRCRP, TSHFX, VD25, CCP, RHF, URCA, HBSAG, HCV #### [facility] [address] [place] [address] [facility], [address] CARDIOLIPIN IGG, IGA, IGMon 09-09-2022 JAVON, IgA 3.1 U/mL Low (14.0 - 20.0) [facility] Comment on above: Performed By: #### C BC/2A, MSEP, ANAFX, ACAX3, C3-C4, ESRCRP, TSHFX, VD25, CCP, RHF, URCA, HBSAG, HCV #### [facility] [address] [place] [address] [address] [facility], [address] JAVON, IgG 1.0 U/mL Low (10.0 - 40.0) [facility] Comment on above: Performed By: #### C BC/2A, MSEP, ANAFX, ACAX3, C3-C4, ESRCRP, TSHFX, VD25, CCP, RHF, URCA, HBSAG, HCV #### [facility] [address] [facility], [id number] JAVON, IgM 3.3 U/mL Low (10.0 - 40.0) [facility] Comment on above: Performed By: #### C BC/2A, MSEP, ANAFX, ACAX3, C3-C4, ESRCRP, TSHFX, VD25, CCP, RHF, URCA, HBSAG, HCV #### [facility] [address] [place], [place] [address]or Rd. [facility], [id number] CBC, ALB, ALT, AST, ALK AND CREAon 09-09-2022 Albumin [Mass/Vol] 4.4 g/dL Normal (3.5 - 5.0) [facility] Comment on above: Order Comment: FACIL ITY: [facility] [id number] Performed By: #### C BC/2A, MSEP, ANAFX, ACAX3, C3-C4, ESRCRP, TSHFX, VD25, CCP, RHF, URCA, HBSAG, HCV #### [facility] [address] [place] [address] [facility], [id number] ALK PHOS 102 U/L Normal (38 - 126) [facility] Comment on above: Order Comment: [facility]: [facility] [id number] Performed By: #### C BC/2A, MSEP, ANAFX, ACAX3, C3-C4, ESRCRP, TSHFX, VD25, CCP, RHF, URCA, HBSAG, HCV #### [facility] [address] [place], [place] [address]or Rd. [facility], [id number] ALT [Catalytic activity/Vol] 26 U/L Normal (1 - 45) [facility] Comment on above: Order Comment: [facility]Y: [facility] [id number] Performed By: #### C BC/2A, MSEP, ANAFX, ACAX3, C3-C4, ESRCRP, TSHFX, VD25, CCP, RHF, URCA, HBSAG, HCV #### [facility] [address] [facility], [id number] AST [Catalytic activity/Vol] 24 U/L Normal (15 - 46) [facility] Comment on above: Order Comment: [facility]: [facility] [id number] Performed By: #### C BC/2A, MSEP, ANAFX, ACAX3, C3-C4, ESRCRP, TSHFX, VD25, CCP, RHF, URCA, HBSAG, HCV #### [facility] [address] [facility], [id number] Creatinine [Mass/Vol] 0.56 mg/dL Low (0.66 - 1.25) [facility] Comment on above: Order Comment: [facility]: [facility] [id number] Performed By: #### C BC/2A, MSEP, ANAFX, ACAX3, C3-C4, ESRCRP, TSHFX, VD25, CCP, RHF, URCA, HBSAG, HCV #### [facility] [address] [facility], [id number] GFR- AMER 176.6 ML/M1.7 High (60.0 - 161.8) [facility] Comment on above: Order Comment: [facility]: [facility] [id number] Performed By: #### C BC/2A, MSEP, ANAFX, ACAX3, C3-C4, ESRCRP, TSHFX, VD25, CCP, RHF, URCA, HBSAG, HCV #### [facility] [address] [facility], [id number] GFR-NON AFRIC-AMER 146.0 ML/M1.7 High (60.0 - 133.8) [facility] Comment on above: Order Comment: [facility]: [facility] [id number] Performed By: #### C BC/2A, MSEP, ANAFX, ACAX3, C3-C4, ESRCRP, TSHFX, VD25, CCP, RHF, URCA, HBSAG, HCV #### [facility] [address] [facility], [address] Hematocrit (Bld) [Volume fraction] 42.5 % Normal (42.0 - 52.0) [facility] Comment on above: Order Comment: [facility]: [facility] [id number] Performed By: #### C BC/2A, MSEP, ANAFX, ACAX3, C3-C4, ESRCRP, TSHFX, VD25, CCP, RHF, URCA, HBSAG, HCV #### [facility] [address] [facility], [address] Hemoglobin (Bld) [Mass/Vol] 14.1 g/dL Normal (14.0 - 18.0) [facility] Comment on above: Order Comment: [facility]: [facility] [id number] Performed By: #### C BC/2A, MSEP, ANAFX, ACAX3, C3-C4, ESRCRP, TSHFX, VD25, CCP, RHF, URCA, HBSAG, HCV #### [facility] [address] [facility], [address] MCH (RBC) [Entitic mass] 29.3 pg Normal (27.0 - 33.0) [facility] Comment on above: Order Comment: [facility]: [facility] [id number] Performed By: #### C BC/2A, MSEP, ANAFX, ACAX3, C3-C4, ESRCRP, TSHFX, VD25, CCP, RHF, URCA, HBSAG, HCV #### [facility] [address] [facility], [address] MCHC (RBC) [Mass/Vol] 33.2 g/dL Normal (30.0 - 37.0) [facility] Comment on above: Order Comment: [facility]: [facility] [id number] Performed By: #### C BC/2A, MSEP, ANAFX, ACAX3, C3-C4, ESRCRP, TSHFX, VD25, CCP, RHF, URCA, HBSAG, HCV #### [facility] [address] [facility], [address] MCV (RBC) [Entitic vol] 88.2 fL Normal (80.0 - 94.0) [facility] Comment on above: Order Comment: [facility]: [facility] [id number] Performed By: #### C BC/2A, MSEP, ANAFX, ACAX3, C3-C4, ESRCRP, TSHFX, VD25, CCP, RHF, URCA, HBSAG, HCV #### [facility] [address] [facility], [address] PLT 278 x10^3ul Normal (130 - 400) [facility] Comment on above: Order Comment: [facility] ITY: [facility] [id number] Performed By: #### C BC/2A, MSEP, ANAFX, ACAX3, C3-C4, ESRCRP, TSHFX, VD25, CCP, RHF, URCA, HBSAG, HCV #### [facility] [address] [facility], [address] RBC 4.82 x10^6ul Normal (4.70 - 6.10) [facility] in Comment on above: Order Comment: [facility]IL [facility]: [facility] [id number] Performed By: #### C BC/2A, MSEP, ANAFX, ACAX3, C3-C4, ESRCRP, TSHFX, VD25, CCP, RHF, URCA, HBSAG, HCV #### [facility] [address] [facility], [address] WBC 7.43 x10^3ul Normal (3.80 - 10.60) [facility] Comment on above: Order Comment: [facility]: [facility] [id number] Performed By: #### C BC/2A, MSEP, ANAFX, ACAX3, C3-C4, ESRCRP, TSHFX, VD25, CCP, RHF, URCA, HBSAG, HCV #### [facility] [address] [facility], [id number] HEP B RICARDO AGon 09-09-2022 HEP B RICARDO AG Negative Normal (NEG - NEG) [facility] Comment on above: Performed By: #### C BC/2A, MSEP, ANAFX, ACAX3, C3-C4, ESRCRP, TSHFX, VD25, CCP, RHF, URCA, HBSAG, HCV #### [facility] [address] [facility], [id number] HEP C ANTIBODYon 09-09-2022 HEPATITIS C ANTIBODY Negative Normal (NEG - NEG) [facility] Comment on above: Performed By: #### C BC/2A, MSEP, ANAFX, ACAX3, C3-C4, ESRCRP, TSHFX, VD25, CCP, RHF, URCA, HBSAG, HCV #### [facility] [address] [facility], [id number] RF FACTORon 09-09-2022 RF FACTOR 26 IU/ML High (0 - 12) [facility] Comment on above: Performed By: #### C BC/2A, MSEP, ANAFX, ACAX3, C3-C4, ESRCRP, TSHFX, VD25, CCP, RHF, URCA, HBSAG, HCV #### [facility] [address] [facility], [id number] SED RATE - CRPon 09-09-2022 CRP EXTENDED RANGE 7.36 MG/L High (0.00 - 3.20) [facility] Comment on above: Performed By: #### C BC/2A, MSEP, ANAFX, ACAX3, C3-C4, ESRCRP, TSHFX, VD25, CCP, RHF, URCA, HBSAG, HCV #### [facility] [address] [facility], [id number] SED RATE WEST. 49 MM/HR High (0 - 24) [facility] Comment on above: Performed By: #### C BC/2A, MSEP, ANAFX, ACAX3, C3-C4, ESRCRP, TSHFX, VD25, CCP, RHF, URCA, HBSAG, HCV #### [facility] [address] [facility], [address] SERUM ELECT(M-PROTIEN)on Albumin [Mass/Vol] 4.8 g/dL Normal (3.5 - 5.0) [facility] Comment on above: Performed By: #### C BC/2A, MSEP, ANAFX, ACAX3, C3-C4, ESRCRP, TSHFX, VD25, CCP, RHF, URCA, HBSAG, HCV #### [facility] [address] [facility], [address] Albumin/Globulin [Mass ratio] 1.7 {ratio} Normal (1.2 - 2.2) [facility] Comment on above: Performed By: #### C BC/2A, MSEP, ANAFX, ACAX3, C3-C4, ESRCRP, TSHFX, VD25, CCP, RHF, URCA, HBSAG, HCV #### [facility] [address] [facility], [address] ALPHA 1 0.2 G/DL Normal (0.1 - 0.3) [facility] Comment on above: Performed By: #### C BC/2A, MSEP, ANAFX, ACAX3, C3-C4, ESRCRP, TSHFX, VD25, CCP, RHF, URCA, HBSAG, HCV #### [facility] [address] [facility], [address] ALPHA 2 1.1 G/DL Normal (0.2 - 1.1) [facility] Comment on above: Performed By: #### C BC/2A, MSEP, ANAFX, ACAX3, C3-C4, ESRCRP, TSHFX, VD25, CCP, RHF, URCA, HBSAG, HCV #### [facility] [address] [facility], [address] BETA 0.9 G/DL Normal (0.6 - 1.1) [facility] Comment on above: Performed By: #### C BC/2A, MSEP, ANAFX, ACAX3, C3-C4, ESRCRP, TSHFX, VD25, CCP, RHF, URCA, HBSAG, HCV #### [facility] [address] [facility], [address] GAMMA 0.7 G/DL Normal (0.5 - 1.5) [facility] Comment on above: Performed By: #### C BC/2A, MSEP, ANAFX, ACAX3, C3-C4, ESRCRP, TSHFX, VD25, CCP, RHF, URCA, HBSAG, HCV #### [facility] [address] [facility], [address] Globulin (S) [Mass/Vol] 2.8 g/dL Normal (2.3 - 3.5) [facility] Comment on above: Performed By: #### C BC/2A, MSEP, ANAFX, ACAX3, C3-C4, ESRCRP, TSHFX, VD25, CCP, RHF, URCA, HBSAG, HCV #### [facility] [address] [facility], [address] Protein [Mass/Vol] 7.6 g/dL Normal (6.3 - 8.2) [facility] Comment on above: Performed By: #### C BC/2A, MSEP, ANAFX, ACAX3, C3-C4, ESRCRP, TSHFX, VD25, CCP, RHF, URCA, HBSAG, HCV #### [facility] [address] [facility], [address] Protein [Mass/Vol] 0.0 g/dL Normal (0.0 - 0.01) [facility] Comment on above: Result Comment: AN A PPARENT NORMAL SERUM ELECTROPHORETIC PATTERN. Performed By: #### C BC/2A, MSEP, ANAFX, ACAX3, C3-C4, ESRCRP, TSHFX, VD25, CCP, RHF, URCA, HBSAG, HCV #### [facility] [address] [facility], [id number] TSH WITH REFLEXon 09-09-2022 REFLEX T4, FREE NO Normal () [facility] Comment on above: Performed By: #### C BC/2A, MSEP, ANAFX, ACAX3, C3-C4, ESRCRP, TSHFX, VD25, CCP, RHF, URCA, HBSAG, HCV #### [facility] [address] [facility], [id number] TSH Qn 0.961 m[IU]/L Normal (0.470 - 4.680) [facility] Comment on above: Performed By: #### C BC/2A, MSEP, ANAFX, ACAX3, C3-C4, ESRCRP, TSHFX, VD25, CCP, RHF, URCA, HBSAG, HCV #### [facility] [address] [facility], [phone] URIC ACIDon 09-09-2022 Urate [Mass/Vol] 7.0 mg/dL Normal (3.5 - 8.5) [facility] Comment on above: Performed By: #### C BC/2A, MSEP, ANAFX, ACAX3, C3-C4, ESRCRP, TSHFX, VD25, CCP, RHF, URCA, HBSAG, HCV #### [facility] [address] [facility], [address] VITAMIN D, 25 HYDROXYon -0 VITAMIN D, 25 27.6 NG/ML Low (30.0 - 100.0) [facility] Comment on above: Result Comment: * * * VITAMIN D, 25 HYDROXY GENERAL GUIDELINE * * * DEFICIENCY = < OR = 20.0 NG/ML INSUFFICIENCY = 20.1 - 29.9 NG/ML SUFFICIENCY = 30.0 - 100.0 NG/ML TOXICITY = > 100.1 NG/ML Performed By: #### C BC/2A, MSEP, ANAFX, ACAX3, C3-C4, ESRCRP, TSHFX, VD25, CCP, RHF, URCA, HBSAG, HCV #### [facility] [address] [place], [address] US TUTU DOP LEG BILon 023 US TUTU DOP LEG CHAD EXAMINATION: US TUTU DOP LEG CHAD HISTORY: Localized edema COMPARISON: No relevant comparison available. TECHNIQUE: Grayscale, color and Doppler FINDINGS: Region: Bilateral legs Thrombus: None Flow: Normal Compressibility: Normal Augmentation: Normal IMPRESSION: No deep or superficial vein thrombus identified in the legs *Exam performed in accordance with [facility] practice guidelines- Peripheral venous ultrasound, September 30, 2009. Electronically authenticated by: KEVIN STANLEY Date: 2022-09-06 16:39 Normal [facility] CT LUNG CANCER SCREENINGon 0 07-16-2022 CT [...] by: GIAN MELENDEZ Date: 2022-07-16 10:02 Normal [facility] FREE T3on 07-16-2022 FREE T3 2.97 pg/mlL Normal 2.18-3.98 [facility] Comment on above: Performed By: #### T OLIVIA, CRP #### [facility] [address] [address] [address] Wilmer Francis FREE T4on 07-16-2022 Free T4 [Mass/Vol] 1.15 ng/dL Normal 0.76-1.46 [facility] Comment on above: Performed By: #### T LOIVIA, CRP #### [facility] [address] [place] [address] Dr. Wilmer Francis LIPID PROFILEon 07-16-2022 CHOL-HDL RATIO NORM SEE BELOW Normal [facility] Comment on above: Result Comment: 3.3 - 4.4 LOW RISK 4.4 - 7.1 AVERAGE RISK 7.1 - 11.0 MODERATE RISK >11.0 HIGH RISK Performed By: #### B MORTUARY TECHNICIAN #### [facility] [address] [place] [address] Dr. Wilmer Francis Cholesterol [Mass/Vol] 131 mg/dL Normal <=200 [facility] [place] Comment on above: Performed By: #### B MORTUARY TECHNICIAN #### [facility] [address] [place] [address] Dr. Wilmer Francis Cholesterol in HDL [Mass/Vol] 58 mg/dL Normal 40-60 [facility] [place] Comment on above: Performed By: #### B MORTUARY TECHNICIAN #### [facility] [address] [place] [address] Dr. Wilmer Francis Cholesterol in LDL [Mass/Vol] 57.2 mg/dL Normal [facility] [place] Comment on above: Performed By: #### B MORTUARY TECHNICIAN #### [facility] [address] [place] [address] Dr. Wilmer Francis Cholesterol.total/Cho lesterol in HDL [Mass ratio] 2.3 {ratio} Normal [facility] [place] Comment on above: Performed By: #### B MORTUARY TECHNICIAN #### [facility] [address] [address] [address] Wilmer Francis HDL NORMAL > or = 60 mg/dl - LOW CARDIOVASCULAR RISK <40 mg/dl - HIGH CARDIOVASCULAR RISK Normal [facility] [place] Comment on above: Performed By: #### B MORTUARY TECHNICIAN #### [facility] [address] [place] [address] Dr. Wilmer Francis LDL CALC NORMAL SEE BELOW Normal [facility] Comment on above: Result Comment: <100 mg/dl OPTIMAL 100 - 129 mg/dl NEAR OR ABOVE OPTIMAL 130 - 159 mg/dl BORDERLINE HIGH 160 - 189 mg/dl HIGH >190 mg/dl VERY HIGH Performed By: #### B MORTUARY TECHNICIAN #### [facility] [address] [place] [address] Dr. Wilmer Francis Triglyceride [Mass/Vol] 79 mg/dL Normal <=150 [facility] [place] Comment on above: Performed By: #### B MORTUARY TECHNICIAN #### [facility] [address] [place] [address] Dr. Wilmer Francis VLDL CALC 15.8 mg/dL Normal [facility] [place] Comment on above: Performed By: #### B MORTUARY TECHNICIAN #### [facility] [address] [place] [address] Dr. Wilmer Francis PROF 14(COMP METB)on 023 Albumin [Mass/Vol] 3.2 g/dL Critically low 3.4-5.[address] [facility] Comment on above: Performed By: #### B MORTUARY TECHNICIAN #### [facility] [address] [place] [address] Dr. Wilmer Francis Albumin/Globulin [Mass ratio] 0.7 {ratio} Normal [facility] [place] Comment on above: Performed By: #### B MORTUARY TECHNICIAN #### [facility] [address] [place] [address] Dr. Wilmer Francis ALP [Catalytic activity/Vol] 75 U/L Normal 46-116 [facility] [place] Comment on above: Performed By: #### B MORTUARY TECHNICIAN #### [facility] [address] [place] [address] Dr. Wilmer Francis ALT [Catalytic activity/Vol] 23 U/L Normal 16-63 [facility] [place] Comment on above: Performed By: #### B MORTUARY TECHNICIAN #### [facility] [address] [place] [address] Dr. Wilmer Francis Anion gap [Moles/Vol] 11.7 mmol/L Normal [facility] Comment on above: Performed By: #### B MORTUARY TECHNICIAN #### [facility] [address] [address] [address] Wilmer Francis AST [Catalytic activity/Vol] 16 U/L Normal 15-37 [facility] [place] Comment on above: Performed By: #### B MORTUARY TECHNICIAN #### [facility] [address] [place] [address] Dr. Wilmer Francis Bilirubin [Mass/Vol] 0.4 mg/dL Normal 0.2-1.0 [facility] [place] Comment on above: Performed By: #### B MORTUARY TECHNICIAN #### [facility] [address] [place] [address] Dr. Wilmer Francis Calcium [Mass/Vol] 9.5 mg/dL Normal 8.5-10.1 [facility] Comment on above: Performed By: #### B MORTUARY TECHNICIAN #### [facility] [address] [place] [address] Dr. Wilmer Francis Chloride [Moles/Vol] 103 mmol/L Normal 98-107 [facility] [place] Comment on above: Performed By: #### B MORTUARY TECHNICIAN #### [facility] [address] [place] [address] Dr. Wilmer Francis CO2 [Moles/Vol] 31.8 mmol/L Normal 21.0-32.0 [facility] Comment on above: Performed By: #### B MORTUARY TECHNICIAN #### [facility] [address] [place] [address] Dr. Wilmer Francis Creatinine [Mass/Vol] 0.80 mg/dL Normal 0.70-1.30 [facility] [place] Comment on above: Performed By: #### B MORTUARY TECHNICIAN #### [facility] [address] [place] [address] Dr. Wilmer Francis EGFR-AF MACEDONIAN >60 Normal >=60 [facility] Comment on above: Performed By: #### B MORTUARY TECHNICIAN #### [facility] [address] [address] [address] Wilmer Francis EGFR-NON AF MACEDONIAN >60 Normal >=60 [facility] [place] Comment on above: Performed By: #### B MORTUARY TECHNICIAN #### [facility] [address] [address] [address] Wilmer Francis Globulin (S) [Mass/Vol] 4.4 g/dL Normal [facility] [place] Comment on above: Performed By: #### B MORTUARY TECHNICIAN #### [facility] [address] [address] [address] Wilmer Francis Glucose [Mass/Vol] 145 mg/dL Critically high 74-106 [facility] Comment on above: Performed By: #### B MORTUARY TECHNICIAN #### [facility] [address] [place] [address] Dr. Wilmer Francis Potassium [Moles/Vol] 4.5 mmol/L Normal 3.5-5.1 [facility] [place] Comment on above: Performed By: #### B MORTUARY TECHNICIAN #### [facility] [address] [place] [address] Dr. Wilmer Francis Protein [Mass/Vol] 7.6 g/dL Normal 6.4-8.2 [facility] Comment on above: Performed By: #### B MORTUARY TECHNICIAN #### [facility] [address] [place] [address] Dr. Wilmer Francis Sodium [Moles/Vol] 142 mmol/L Normal 136-145 [facility] Comment on above: Performed By: #### B MORTUARY TECHNICIAN #### [facility] [address] [place] [address] Dr. Wilmer Francis Urea nitrogen [Mass/Vol] 12.0 mg/dL Normal 7.0-18.0 [facility] [place] Comment on above: Performed By: #### B MORTUARY TECHNICIAN #### [facility] [address] [place] [address] Dr. Wilmer Francis Urea nitrogen/Creatinine [Mass ratio] 15.0 mg/mg Normal [facility] [place] Comment on above: Performed By: #### B MORTUARY TECHNICIAN #### [facility] [address] [address] [address] Wilmer Francis TSHon 07-16-2022 TSH 0.770 uIU/mL Normal 0.358-3.740 [facility] Comment on above: Performed By: #### T SH, CRP #### [facility] [address] [address] [address] Wilmer Francis CBC AUTO DIFFon 06-22-2022 BASO # 0.0 103/ul Normal 0.0-0.1 [facility] [place] Comment on above: Performed By: #### S EDR #### [facility] [address] [place] [address] Dr. Wimler Francis Basophils/100 WBC (Bld) 0.1 % Critically low 0.2-2.0 [facility] [place] Comment on above: Performed By: #### S EDR #### [facility] [address] [place] [address] Dr. Wilmer Francis EO # 0.0 103/ul Normal 0.0-0.7 [facility] [place] Comment on above: Performed By: #### S EDR #### [facility] [address] [place] [address] Dr. Wilmer Francis Eosinophils/100 WBC (Bld) 0.0 % Critically low 0.9-7.0 [facility] [place] Comment on above: Performed By: #### S EDR #### [facility] [address] [place] [address] Dr. Wilmer Francis Erythrocyte distribution width (RBC) [Ratio] 12.7 % Normal 11.0-15.0 [facility] [place] Comment on above: Performed By: #### S EDR #### [facility] [address] [place] [address] Dr. Wilmer Francis Hematocrit (Bld) [Volume fraction] 36.5 % Critically low 42.0-54.0 [facility] [place] Comment on above: Performed By: #### S EDR #### [facility] [address] [place] [address] Dr. Wilmer Francis Hemoglobin (Bld) [Mass/Vol] 12.5 g/dL Critically low 14.0-18.0 [facility] [place] Comment on above: Performed By: #### S EDR #### [facility] [address] [address] [address] Wilmer Francis IG # 0.08 10e3/ul Critically high 0.00-0.03 [facility] Comment on above: Performed By: #### S EDR #### [facility] [address] [address] [address] Wilmer Francis IG % 0.6 % Critically high 0.0-0.5 [facility] Comment on above: Performed By: #### S EDR #### [facility] [address] [address] [address] Wilmer Francis LYMPH # 0.8 103/ul Critically low 1.2-3.8 [facility] Comment on above: Performed By: #### S EDR #### [facility] [address] [place] [address] Dr. Wilmer Francis Lymphocytes/100 WBC (Bld) 5.9 % Critically low 20.5-60.0 [facility] [place] Comment on above: Performed By: #### S EDR #### [facility] [address] [place] [address] Dr. Wilmer Francis MANUAL DIFF REQ NO Normal [facility] Comment on above: Performed By: #### S EDR #### [facility] [address] [address] [address] Wilmer Francis MCH (RBC) [Entitic mass] 30.5 pg Normal 25.9-34.0 [facility] [place] Comment on above: Performed By: #### S EDR #### [facility] [address] [address] [address] Wilmer Francis MCHC (RBC) [Mass/Vol] 34.2 g/dL Normal 29.9-35.2 [facility] [place] Comment on above: Performed By: #### S EDR #### [facility] [address] [place] [address] Dr. Wilmer Francis MCV (RBC) [Entitic vol] 89.0 fL Normal 80.0-94.0 [facility] [place] Comment on above: Performed By: #### S EDR #### [facility] [address] [address] [address] Wilmer Francis MONO # 0.8 103/ul Normal 0.3-0.8 [facility] [place] Comment on above: Performed By: #### S EDR #### [facility] [address] [address] [address] Wilmer Francis Monocytes/100 WBC (Bld) 6.0 % Normal 1.7-12.0 [facility] [place] Comment on above: Performed By: #### S EDR #### [facility] [address] [place] [address] Dr. Wilmer Francis NEUT # 11.3 103/ul Critically high 1.4-6.5 [facility] Comment on above: Performed By: #### S EDR #### [facility] [address] [place] [address] Dr. Wilmer Francis Neutrophils/100 WBC (Bld) 87.4 % Critically high 43.0-75.0 [facility] [place] Comment on above: Performed By: #### S EDR #### [facility] [address] [place] [address] Dr. Wilmer Francis Platelet mean volume (Bld) [Entitic vol] 9.1 fL Critically low 9.5-13.5 [facility] [place] Comment on above: Performed By: #### S EDR #### [facility] [address] [place] [address] Dr. Wilmer Francis PLT 347 103/ul Normal 150-450 [facility] Comment on above: Performed By: #### S EDR #### [facility] [id number] Wilmer Francis RBC 4.10 106/ul Critically low 4.70-6.10 [facility] Comment on above: Performed By: #### S EDR #### [facility] [address] [place] [address] Dr. Wilmer Francis WBC 13.0 103/ul Critically high 4.0-11.0 [facility] [place] Comment on above: Performed By: #### S EDR #### [facility] [address] [address] [address] Wilmer Francis CRPon 06-22-2022 CRP 3.1 mg/dL Critically high <=1.0 [facility] Comment on above: Performed By: #### P RTELEC #### [facility] [address] [address] [address] Wilmer Francis PROF CHEM 8 (BAS METB)on Anion gap [Moles/Vol] 9.9 mmol/L Normal [facility] [place] Comment on above: Performed By: #### T SH, CRP #### [facility] [address] [address] [address] Wilmer Francis Calcium [Mass/Vol] 9.7 mg/dL Normal 8.5-10.1 [facility] Comment on above: Performed By: #### T SH, CRP #### [facility] [address] [address] [address] Wilmer Francis Chloride [Moles/Vol] 97 mmol/L Critically low 98-107 [facility] [place] Comment on above: Performed By: #### T SH, CRP #### [facility] [address] [address] [address] Wilmer Francis CO2 [Moles/Vol] 31.6 mmol/L Normal 21.0-32.0 [facility] [place] Comment on above: Performed By: #### T SH, CRP #### [facility] [address] [address] [address] Wilmer Francis Creatinine [Mass/Vol] 0.91 mg/dL Normal 0.70-1.30 [facility] Comment on above: Performed By: #### T SH, CRP #### [facility] [address] [place] [address] Dr. Wilmer Francis EGFR-AF MACEDONIAN >60 Normal >=60 [facility] [place] Comment on above: Performed By: #### T SH, CRP #### [facility] [address] [address] [address] Wilmer Francis EGFR-NON AF MACEDONIAN >60 Normal >=60 [facility] [place] Comment on above: Performed By: #### T SH, CRP #### [facility] [address] [address] [address] Wilmer Francis Glucose [Mass/Vol] 222 mg/dL Critically high 74-106 [facility] Comment on above: Performed By: #### T SH, CRP #### [facility] [address] [address] [address] Wilmer Francis Potassium [Moles/Vol] 4.4 mmol/L Normal 3.5-5.1 [facility] [place] Comment on above: Performed By: #### T SH, CRP #### [facility] [address] [place] [address] Dr. Wilmer Francis Sodium [Moles/Vol] 134 mmol/L Critically low 136-[address] [facility] Comment on above: Performed By: #### T SH, CRP #### [facility] [address] [place] [address] Dr. Wilmer Francis Urea nitrogen [Mass/Vol] 19.0 mg/dL Critically high 7.0-18.0 [facility] [place] Comment on above: Performed By: #### T SH, CRP #### [facility] [address] [place] [address] Dr. Wilmer Francis Urea nitrogen/Creatinine [Mass ratio] 20.9 mg/mg Normal [facility] [place] Comment on above: Performed By: #### T SH, CRP #### [facility] [address] [place] [address] Dr. Wilmer Francis Anion gap [Moles/Vol] 9.5 mmol/L Normal [facility] [place] Comment on above: Performed By: #### P RTELEC #### [facility] [address] [place] [address] Dr. Wilmer Francis Calcium [Mass/Vol] 9.4 mg/dL Normal 8.5-10.1 [facility] Comment on above: Performed By: #### P RTELEC #### [facility] [address] [place] [address] Dr. Wilmer Francis Chloride [Moles/Vol] 99 mmol/L Normal 98-107 [facility] [place] Comment on above: Performed By: #### P RTELEC #### [facility] [address] [address] [address] Wilmer Francis CO2 [Moles/Vol] 30.4 mmol/L Normal 21.0-32.0 [facility] Comment on above: Performed By: #### P RTELEC #### [facility] [address] [address] [address] Wilmer Francis Creatinine [Mass/Vol] 0.91 mg/dL Normal 0.70-1.30 [facility] [place] Comment on above: Performed By: #### P RTELEC #### [facility] [address] [place] [address] Dr. Wilmer Francis EGFR-AF MACEDONIAN >60 Normal >=60 [facility] Comment on above: Performed By: #### P RTELEC #### [facility] [address] [place] [address] Dr. Wilmer Francis EGFR-NON AF MACEDONIAN >60 Normal >=60 [facility] [place] Comment on above: Performed By: #### P RTELEC #### [facility] [address] [address] [address] Wilmer Francis Glucose [Mass/Vol] 266 mg/dL Critically high 74-106 [facility] Comment on above: Performed By: #### P RTELEC #### [facility] [address] [place] [address] Dr. Wilmer Francis Potassium [Moles/Vol] 3.9 mmol/L Normal 3.5-5.1 [facility] [place] Comment on above: Performed By: #### P RTELEC #### [facility] [address] [address] [address] Wilmer Francis Sodium [Moles/Vol] 135 mmol/L Critically low 136-[address] [facility] Comment on above: Performed By: #### P RTELEC #### [facility] [address] [place] [address] Dr. Wilmer Francis Urea nitrogen [Mass/Vol] 21.0 mg/dL Critically high 7.0-18.0 [facility] [place] Comment on above: Performed By: #### P RTELEC #### [facility] [address] [address] [address] Wilmer Francis Urea nitrogen/Creatinine [Mass ratio] 23.1 mg/mg Normal [facility] [place] Comment on above: Performed By: #### P RTELEC #### [facility] [address] [address] [address] Wilmer Francis Anion gap [Moles/Vol] 10.0 mmol/L Normal [facility] Comment on above: Performed By: #### S EDR #### [facility] [address] [address] [address] Wilmer Francis Calcium [Mass/Vol] 9.4 mg/dL Normal 8.5-10.1 [facility] Comment on above: Performed By: #### S EDR #### [facility] [address] [address] [address] Wilmer Francis Chloride [Moles/Vol] 97 mmol/L Critically low 98-107 [facility] [place] Comment on above: Performed By: #### S EDR #### [facility] [address] [address] [address] Wilmer Francis CO2 [Moles/Vol] 28.9 mmol/L Normal 21.0-32.0 [facility] Comment on above: Performed By: #### S EDR #### [facility] [address] [address] [address] Wilmer Francis Creatinine [Mass/Vol] 1.19 mg/dL Normal 0.70-1.30 [facility] [place] Comment on above: Performed By: #### S EDR #### [facility] [address] [address] [address] Wilmer Francis EGFR-AF MACEDONIAN >60 Normal >=60 [facility] Comment on above: Performed By: #### S EDR #### [facility] [address] [address] [address] Wilmer Francis EGFR-NON AF MACEDONIAN >60 Normal >=60 [facility] [place] Comment on above: Performed By: #### S EDR #### [facility] [address] [address] [address] Wilmer Francis Glucose [Mass/Vol] 343 mg/dL Critically high 74-106 [facility] Comment on above: Performed By: #### S EDR #### [facility] [address] [address] [address] Wilmer Francis Potassium [Moles/Vol] 3.9 mmol/L Normal 3.5-5.1 [facility] [place] Comment on above: Performed By: #### S EDR #### [facility] [address] [address] [address] Wilmer Francis Sodium [Moles/Vol] 132 mmol/L Critically low 136-[address] [facility] Comment on above: Performed By: #### S EDR #### [facility] [address] [address] [address] Wilmer Francis Urea nitrogen [Mass/Vol] 24.0 mg/dL Critically high 7.0-18.0 [facility] [place] Comment on above: Performed By: #### S EDR #### [facility] [address] [address] [address] Wilmer Francis Urea nitrogen/Creatinine [Mass ratio] 20.2 mg/mg Normal [facility] [place] Comment on above: Performed By: #### S EDR #### [facility] [address] [address] [address] Wilmer Francis SED RATE [facility] 2021 SED RATE 74 mm/hr Critically high <=20 [facility] Comment on above: Performed By: #### T SH, CRP #### [facility] [address] [address] [address] Wilmer Francis JUICE by IFAon 06-21-2022 Antinuclear Antibodies, IFA Negative Normal [facility] [place] Comment on above: Result Comment: Nega tive <1:80 Borderline 1:80 Positive >1:80 ICAP nomenclature: AC-0 For more information about Hep-2 cell patterns use ANApatterns.org, the official website for the International Consensus on Antinuclear Antibody (JUICE) Patterns (ICAP). Performed By: #### S EDR #### [facility] [address] [place] [address] Dr. Wilmer Francis CBC AUTO DIFFon 06-21-2022 BASO # 0.0 103/ul Normal 0.0-0.1 [facility] [place] Comment on above: Performed By: #### R SV, INFLUAB #### [facility] [address] [place] [address] Dr. Wilmer Francis Basophils/100 WBC (Bld) 0.1 % Critically low 0.2-2.0 [facility] [place] Comment on above: Performed By: #### R SV, INFLUAB #### [facility] [address] [place] [address] Dr. Wilmer Francis EO # 0.0 103/ul Normal 0.0-0.7 [facility] [place] Comment on above: Performed By: #### R SV, INFLUAB #### [facility] [address] [place] [address] Dr. Wilmer Francis Eosinophils/100 WBC (Bld) 0.1 % Critically low 0.9-7.0 [facility] [place] Comment on above: Performed By: #### R SV, INFLUAB #### [facility] [address] [place] [address] Dr. Wilmer Francis Erythrocyte distribution width (RBC) [Ratio] 12.5 % Normal 11.0-15.0 [facility] [place] Comment on above: Performed By: #### R SV, INFLUAB #### [facility] [address] [place] [address] Dr. Wilmer Francis Hematocrit (Bld) [Volume fraction] 36.6 % Critically low 42.0-54.0 [facility] [place] Comment on above: Performed By: #### R SV, INFLUAB #### [facility] [address] [place] [address] Dr. Wilmer Francis Hemoglobin (Bld) [Mass/Vol] 12.5 g/dL Critically low 14.0-18.0 [facility] [place] Comment on above: Performed By: #### R SV, INFLUAB #### [facility] [address] [place] [address] Dr. Wilmer Francis IG # 0.13 10e3/ul Critically high 0.00-0.03 [facility] Comment on above: Performed By: #### R SV, INFLUAB #### [facility] [address] [place] [address] Dr. Wilmer Francis IG % 0.7 % Critically high 0.0-0.5 [facility] Comment on above: Performed By: #### R SV, INFLUAB #### [facility] [address] [place] [address] Dr. Wilmer Francis LYMPH # 0.6 103/ul Critically low 1.2-3.8 [facility] Comment on above: Performed By: #### R SV, INFLUAB #### [facility] [address] [place] [address] Dr. Wilmer Francis Lymphocytes/100 WBC (Bld) 3.3 % Critically low 20.5-60.0 [facility] [place] Comment on above: Performed By: #### R SV, INFLUAB #### [facility] [address] [place] [address] Dr. Wilmer Francis MANUAL DIFF REQ NO Normal [facility] Comment on above: Performed By: #### R SV, INFLUAB #### [facility] [address] [place] [address] Dr. Wilmer Francis MCH (RBC) [Entitic mass] 30.6 pg Normal 25.9-34.0 [facility] [place] Comment on above: Performed By: #### R SV, INFLUAB #### [facility] [address] [place] [address] Dr. Wilmer Francis MCHC (RBC) [Mass/Vol] 34.2 g/dL Normal 29.9-35.2 [facility] Comment on above: Performed By: #### R SV, INFLUAB #### [facility] [address] [place] [address] Dr. Wilmer Francis MCV (RBC) [Entitic vol] 89.5 fL Normal 80.0-94.0 [facility] [place] Comment on above: Performed By: #### R SV, INFLUAB #### [facility] [address] [address] [address] Wilmer Francis MONO # 1.1 103/ul Critically high 0.3-0.8 [facility] Comment on above: Performed By: #### R SV, INFLUAB #### [facility] [address] [place] [address] Dr. Wilmer Francis Monocytes/100 WBC (Bld) 5.7 % Normal 1.7-12.0 [facility] Comment on above: Performed By: #### R SV, INFLUAB #### [facility] [address] [place] [address] Dr. Wilmer Francis NEUT # 17.3 103/ul Critically high 1.4-6.5 [facility] [place] Comment on above: Performed By: #### R SV, INFLUAB #### [facility] [address] [place] [address] Dr. Wilmer Francis Neutrophils/100 WBC (Bld) 90.1 % Critically high 43.0-75.0 [facility] [place] Comment on above: Performed By: #### R SV, INFLUAB #### [facility] [address] [place] [address] Dr. Wilmer Francis Platelet mean volume (Bld) [Entitic vol] 9.2 fL Critically low 9.5-13.5 [facility] [place] Comment on above: Performed By: #### R SV, INFLUAB #### [facility] [address] [place] [address] Dr. Wilmer Francis PLT 318 103/ul Normal 150-450 [facility] Comment on above: Performed By: #### R SV, INFLUAB #### [facility] [address] [place] [address] Dr. Wilmer Francis RBC 4.09 106/ul Critically low 4.70-6.10 [facility] Comment on above: Performed By: #### R SV, INFLUAB #### [facility] [address] [place] [address] Dr. Wilmer Francis WBC 19.2 103/ul Critically high 4.0-11.0 [facility] [place] Comment on above: Performed By: #### R SV, INFLUAB #### [facility] [address] [place] [address] Dr. Wilmer Francis CRPon 06-21-2022 CRP 7.3 mg/dL Critically high <=1.0 [facility] Comment on above: Performed By: #### T SH, CRP #### [facility] [address] [place] [address] Dr. Wilmer Francis OSMOLALITYon 06-21-2022 Osmolality [Osmolality] 254 mosm/kg Critically low 280-301 [facility] [place] Comment on above: Performed By: #### T SH, CRP #### [facility] [address] [place] [address] Dr. Wilmer Francis OSMOLALITY URINEon Osmolality, Urine 558 mOsmol/kg Normal [facility] [place] Comment on above: Result Comment: 24 h r : 300 - 900 Random: 50 - 1400 After 12hr fluid restriction: >850 Performed By: #### B MORTUARY TECHNICIAN #### [facility] [address] [place] [address] Dr. Wilmer Francis PROF CHEM 8 (BAS METB)on Anion gap [Moles/Vol] 10.6 mmol/L Normal [facility] Comment on above: Performed By: #### T SH, CRP #### [facility] [address] [place] [address] Dr. Wilmer Francis Calcium [Mass/Vol] 9.1 mg/dL Normal 8.5-10.1 [facility] Comment on above: Performed By: #### T SH, CRP #### [facility] [address] [place] [address] Dr. Wilmer Francis Chloride [Moles/Vol] 94 mmol/L Critically low 98-107 [facility] [place] Comment on above: Performed By: #### T SH, CRP #### [facility] [address] [place] [address] Dr. Wilmer Francis CO2 [Moles/Vol] 28.5 mmol/L Normal 21.0-32.0 [facility] Comment on above: Performed By: #### T SH, CRP #### [facility] [address] [address] [address] Wilmer Francis Creatinine [Mass/Vol] 1.11 mg/dL Normal 0.70-1.30 [facility] [place] Comment on above: Performed By: #### T SH, CRP #### [facility] [address] [address] [address] Wilmer Francis EGFR-AF MACEDONIAN >60 Normal >=60 [facility] Comment on above: Performed By: #### T SH, CRP #### [facility] [address] [address] [address] Wilmer Francis EGFR-NON AF MACEDONIAN >60 Normal >=60 [facility] [place] Comment on above: Performed By: #### T SH, CRP #### [facility] [address] [address] [address] Wilmer Francis Glucose [Mass/Vol] 294 mg/dL Critically high 74-106 [facility] Comment on above: Performed By: #### T SH, CRP #### [facility] [address] [address] [address] Wilmer Francis Potassium [Moles/Vol] 4.1 mmol/L Normal 3.5-5.1 [facility] [place] Comment on above: Performed By: #### T SH, CRP #### [facility] [address] [place] [address] Dr. Wilmer Francis Sodium [Moles/Vol] 129 mmol/L Critically low 136-[address] [facility] Comment on above: Performed By: #### T SH, CRP #### [facility] [address] [place] [address] Dr. Wilmer Francis Urea nitrogen [Mass/Vol] 27.0 mg/dL Critically high 7.0-18.0 [facility] [place] Comment on above: Performed By: #### T SH, CRP #### [facility] [address] [place] [address] Dr. Wilmer Francis Urea nitrogen/Creatinine [Mass ratio] 24.3 mg/mg Normal [facility] [place] Comment on above: Performed By: #### T SH, CRP #### [facility] [address] [place] [address] Dr. Wilmer Francis Anion gap [Moles/Vol] 11.7 mmol/L Normal [facility] Comment on above: Performed By: #### B MP #### [facility] [address] [address] [address] Wilmer Francis Calcium [Mass/Vol] 8.7 mg/dL Normal 8.5-10.1 [facility] Comment on above: Performed By: #### B MP #### [facility] [address] [address] [address] Wilmer Francis Chloride [Moles/Vol] 93 mmol/L Critically low 98-107 [facility] [place] Comment on above: Performed By: #### B MP #### [facility] [address] [place] [address] Dr. Wilmer Francis CO2 [Moles/Vol] 25.4 mmol/L Normal 21.0-32.0 [facility] Comment on above: Performed By: #### B MP #### [facility] [address] [place] [address] Dr. Wilmer Francis Creatinine [Mass/Vol] 1.37 mg/dL Critically high 0.70-1.30 [facility] [place] Comment on above: Performed By: #### B MP #### [facility] [address] [place] [address] Dr. Wilmer Francis EGFR-AF MACEDONIAN >60 Normal >=60 [facility] Comment on above: Performed By: #### B MP #### [facility] [address] [address] [address] Wilmer Francis EGFR-NON AF MACEDONIAN 52 mL/min/1.73m2 Critically low >=60 [facility] [place] Comment on above: Performed By: #### B MP #### [facility] [address] [place] [address] Dr. Wilmer Francis Glucose [Mass/Vol] 398 mg/dL Critically high 74-106 [facility] Comment on above: Performed By: #### B MP #### [facility] [address] [place] [address] Dr. Wilmer Francis Potassium [Moles/Vol] 4.1 mmol/L Normal 3.5-5.1 [facility] [place] Comment on above: Performed By: #### B MP #### [facility] [address] [place] [address] Dr. Wilmer Francis Sodium [Moles/Vol] 126 mmol/L Critically low 136-[address] [facility] Comment on above: Performed By: #### B MP #### [facility] [address] [place] [address] Dr. Wilmer Francis Urea nitrogen [Mass/Vol] 28.0 mg/dL Critically high 7.0-18.0 [facility] [place] Comment on above: Performed By: #### B MP #### [facility] [address] [place] [address] Dr. Wilmer Francis Urea nitrogen/Creatinine [Mass ratio] 20.4 mg/mg Normal [facility] [place] Comment on above: Performed By: #### B MP #### [facility] [address] [place] [address] Dr. Wilmer Francis SED RATE [facility] 2021 SED RATE 109 mm/hr Critically high <=20 [facility] Comment on above: Performed By: #### S EDR #### [facility] [address] [place] [address] Dr. Wilmer Francis CBC AUTO DIFFon 06-20-2022 BASO # 0.0 103/ul Normal 0.0-0.1 [facility] [place] Comment on above: Performed By: #### T SH, CRP #### [facility] [address] [place] [address] Dr. Wilmer Francis Basophils/100 WBC (Bld) 0.1 % Critically low 0.2-2.0 [facility] [place] Comment on above: Performed By: #### T SH, CRP #### [facility] [address] [place] [address] Dr. Wilmer Francis EO # 0.0 103/ul Normal 0.0-0.7 [facility] [place] Comment on above: Performed By: #### T SH, CRP #### [facility] [address] [place] [address] Dr. Wilmer Francis Eosinophils/100 WBC (Bld) 0.0 % Critically low 0.9-7.0 [facility] [place] Comment on above: Performed By: #### T SH, CRP #### [facility] [address] [place] [address] Dr. Wilmer Francis Erythrocyte distribution width (RBC) [Ratio] 12.2 % Normal 11.0-15.0 [facility] [place] Comment on above: Performed By: #### T SH, CRP #### [facility] [address] [place] [address] Dr. Wilmer Francis Hematocrit (Bld) [Volume fraction] 37.3 % Critically low 42.0-54.0 [facility] [place] Comment on above: Performed By: #### T SH, CRP #### [facility] [address] [place] [address] Dr. Wilmer Francis Hemoglobin (Bld) [Mass/Vol] 12.7 g/dL Critically low 14.0-18.0 [facility] [place] Comment on above: Performed By: #### T SH, CRP #### [facility] [address] [place] [address] Dr. Wilmer Francis IG # 0.11 10e3/ul Critically high 0.00-0.03 [facility] Comment on above: Performed By: #### T SH, CRP #### [facility] [address] [place] [address] Dr. Wilmer Francis IG % 0.5 % Normal 0.0-0.5 [facility] Comment on above: Performed By: #### T SH, CRP #### [facility] [address] [place] [address] Dr. Wilmer Francis LYMPH # 0.9 103/ul Critically low 1.2-3.8 [facility] Comment on above: Performed By: #### T SH, CRP #### [facility] [address] [place] [address] Dr. Wilmer Francis Lymphocytes/100 WBC (Bld) 4.3 % Critically low 20.5-60.0 [facility] [place] Comment on above: Performed By: #### T SH, CRP #### [facility] [address] [place] [address] Dr. Wilmer Francis MANUAL DIFF REQ NO Normal [facility] Comment on above: Performed By: #### T SH, CRP #### [facility] [address] [place] [address] Dr. iWlmer Francis MCH (RBC) [Entitic mass] 30.3 pg Normal 25.9-34.0 [facility] Comment on above: Performed By: #### T SH, CRP #### [facility] [address] [place] [address] Dr. Wilmer Francis MCHC (RBC) [Mass/Vol] 34.0 g/dL Normal 29.9-35.2 [facility] Comment on above: Performed By: #### T SH, CRP #### [facility] [address] [place] [address] Dr. Wilmer Francis MCV (RBC) [Entitic vol] 89.0 fL Normal 80.0-94.0 [facility] [place] Comment on above: Performed By: #### T SH, CRP #### [facility] [address] [place] [address] Dr. Wilmer Francis MONO # 1.4 103/ul Critically high 0.3-0.8 [facility] Comment on above: Performed By: #### T SH, CRP #### [facility] [address] [place] [address] Dr. Wilmer Francis Monocytes/100 WBC (Bld) 6.2 % Normal 1.7-12.0 [facility] Comment on above: Performed By: #### T SH, CRP #### [facility] [address] [place] [address] Dr. Wilmer Francis NEUT # 19.6 103/ul Critically high 1.4-6.5 [facility] [place] Comment on above: Performed By: #### T SH, CRP #### [facility] [address] [place] [address] Dr. Wilmer Francis Neutrophils/100 WBC (Bld) 88.9 % Critically high 43.0-75.0 [facility] [place] Comment on above: Performed By: #### T SH, CRP #### [facility] [address] [address] [address] Wilmer Francis Platelet mean volume (Bld) [Entitic vol] 9.3 fL Critically low 9.5-13.5 [facility] [place] Comment on above: Performed By: #### T SH, CRP #### [facility] [address] [address] [address] Wilmer Francis PLT 311 103/ul Normal 150-450 [facility] [place] Comment on above: Performed By: #### T SH, CRP #### [facility] [address] [address] [address] Wilmer Francis RBC 4.19 106/ul Critically low 4.70-6.10 [facility] Comment on above: Performed By: #### T SH, CRP #### [facility] [address] [address] [address] Wilmer Francis WBC 22.0 103/ul Critically high 4.0-11.0 [facility] Comment on above: Performed By: #### T SH, CRP #### [facility] [address] [address] [address] Wilmer Francis CRPon 06-20-2022 CRP 16.1 mg/dL Critically high <=1.0 [facility] Comment on above: Performed By: #### S EDR #### [facility] [address] [address] [address] Wilmer Francis PROF CHEM 8 (BAS METB)on Anion gap [Moles/Vol] 14.0 mmol/L Normal [facility] Comment on above: Performed By: #### B MORTUARY TECHNICIAN #### [facility] [address] [address] [address] Wilmer Francis Calcium [Mass/Vol] 9.0 mg/dL Normal 8.5-10.1 [facility] Comment on above: Performed By: #### B MORTUARY TECHNICIAN #### [facility] [address] [address] [address] Wilmer Francis Chloride [Moles/Vol] 90 mmol/L Critically low 98-107 [facility] [place] Comment on above: Performed By: #### B MORTUARY TECHNICIAN #### [facility] [address] [address] [address] Wilmer Francis CO2 [Moles/Vol] 26.3 mmol/L Normal 21.0-32.0 [facility] Comment on above: Performed By: #### B MORTUARY TECHNICIAN #### [facility] [address] [address] [address] Wilmer Francis Creatinine [Mass/Vol] 1.24 mg/dL Normal 0.70-1.30 [facility] [place] Comment on above: Performed By: #### B MORTUARY TECHNICIAN #### [facility] [address] [address] [address] Wilmer Francis EGFR-AF MACEDONIAN >60 Normal >=60 [facility] Comment on above: Performed By: #### B MORTUARY TECHNICIAN #### [facility] [address] [address] [address] Wilmer Francis EGFR-NON AF MACEDONIAN 58 mL/min/1.73m2 Critically low >=60 [facility] [place] Comment on above: Performed By: #### B MORTUARY TECHNICIAN #### [facility] [address] [address] [address] Wilmre Francis Glucose [Mass/Vol] 274 mg/dL Critically high 74-106 [facility] Comment on above: Performed By: #### B MORTUARY TECHNICIAN #### [facility] [address] [address] [address] Wilmer Francis Potassium [Moles/Vol] 4.2 mmol/L Normal 3.5-5.1 [facility] [place] Comment on above: Performed By: #### B MORTUARY TECHNICIAN #### [facility] [address] [address] [address] Wilmer Francis Sodium [Moles/Vol] 126 mmol/L Critically low 136-[address] [facility] Comment on above: Performed By: #### B MORTUARY TECHNICIAN #### [facility] [address] [address] [address] Wilmer Francis Urea nitrogen [Mass/Vol] 20.0 mg/dL Critically high 7.0-18.0 [facility] [place] Comment on above: Performed By: #### B MORTUARY TECHNICIAN #### [facility] [address] [address] [address] Wilmer Francis Urea nitrogen/Creatinine [Mass ratio] 16.1 mg/mg Normal [facility] [place] Comment on above: Performed By: #### B MORTUARY TECHNICIAN #### [facility] [address] [address] [address] Wilmer Francis Anion gap [Moles/Vol] 9.4 mmol/L Normal [facility] [place] Comment on above: Performed By: #### S EDR #### [facility] [address] [address] [address] Wilmer Francis Calcium [Mass/Vol] 8.9 mg/dL Normal 8.5-10.1 [facility] Comment on above: Performed By: #### S EDR #### [facility] [address] [address] [address] Wilmer Francis Chloride [Moles/Vol] 90 mmol/L Critically low 98-107 [facility] [place] Comment on above: Performed By: #### S EDR #### [facility] [address] [address] [address] Wilmer Francis CO2 [Moles/Vol] 28.8 mmol/L Normal 21.0-32.0 [facility] Comment on above: Performed By: #### S EDR #### [facility] [address] [address] [address] Wilmer Francis Creatinine [Mass/Vol] 0.93 mg/dL Normal 0.70-1.30 [facility] [place] Comment on above: Performed By: #### S EDR #### [facility] [address] [address] [address] Wilmer Francis EGFR-AF MACEDONIAN >60 Normal >=60 [facility] [place] Comment on above: Performed By: #### S EDR #### [facility] [address] [address] [address] Wilmer Francis EGFR-NON AF MACEDONIAN >60 Normal >=60 [facility] [place] Comment on above: Performed By: #### S EDR #### [facility] [address] [address] [address] Wilmer Francis Glucose [Mass/Vol] 243 mg/dL Critically high 74-106 [facility] Comment on above: Performed By: #### S EDR #### [facility] [address] [address] [address] Wilmer Francis Potassium [Moles/Vol] 4.2 mmol/L Normal 3.5-5.1 [facility] [place] Comment on above: Performed By: #### S EDR #### [facility] [address] [address] [address] Wilmer Francis Sodium [Moles/Vol] 124 mmol/L Critically low 136-145 [facility] Comment on above: Performed By: #### S EDR #### [facility] [address] [address] [address] Wilmer Francis Urea nitrogen [Mass/Vol] 21.0 mg/dL Critically high 7.0-18.0 [facility] [place] Comment on above: Performed By: #### S EDR #### [facility] [address] [place] [address] Dr[address] Wilmer Francis Urea nitrogen/Creatinine [Mass ratio] 22.6 mg/mg Normal [facility] [place] Comment on above: Performed By: #### S EDR #### [facility] [address] [address] [address] Wilmer Francis Anion gap [Moles/Vol] 10.8 mmol/L Normal [facility] Comment on above: Performed By: #### T SH, CRP #### [facility] [address] [address] [address] Wilmer Francis Calcium [Mass/Vol] 8.6 mg/dL Normal 8.5-10.1 [facility] Comment on above: Performed By: #### T SH, CRP #### [facility] [address] [address] [address] Wilmer Francis Chloride [Moles/Vol] 88 mmol/L Critically low 98-107 [facility] [place] Comment on above: Performed By: #### T SH, CRP #### [facility] [address] [address] [address] Wilmer Francis CO2 [Moles/Vol] 27.3 mmol/L Normal 21.0-32.0 [facility] Comment on above: Performed By: #### T SH, CRP #### [facility] [address] [address] [address] Wilmer Francis Creatinine [Mass/Vol] 1.19 mg/dL Normal 0.70-1.30 [facility] [place] Comment on above: Performed By: #### T SH, CRP #### [facility] [address] [address] [address] Wilmer Francis EGFR-AF MACEDONIAN >60 Normal >=60 The [facility] [place] Comment on above: Performed By: #### T SH, CRP #### [facility] [address] [place] [address] Dr. Wilmer Francis EGFR-NON AF MACEDONIAN >60 Normal >=60 [facility] [place] Comment on above: Performed By: #### T SH, CRP #### [facility] [address] [address] [address] Wilmer Francis Glucose [Mass/Vol] 378 mg/dL Critically high 74-106 [facility] Comment on above: Performed By: #### T SH, CRP #### [facility] [address] [place] [address] Dr. Wilmer Francis Potassium [Moles/Vol] 4.1 mmol/L Normal 3.5-5.1 [facility] [place] Comment on above: Performed By: #### T SH, CRP #### [facility] [address] [address] [address] Wilmer Francis Sodium [Moles/Vol] 122 mmol/L Critically low 136-[address] [facility] Comment on above: Performed By: #### T SH, CRP #### [facility] [address] [address] [address] Wilmer Francis Urea nitrogen [Mass/Vol] 21.0 mg/dL Critically high 7.0-18.0 [facility] [place] Comment on above: Performed By: #### T SH, CRP #### [facility] [address] [place] [address] Dr. Wilmer Francis Urea nitrogen/Creatinine [Mass ratio] 17.6 mg/mg Normal [facility] [place] Comment on above: Performed By: #### T SH, CRP #### [facility] [address] [place] [address] Dr. Wilmer Francis PROTEIN ELECTROPHERESISon Albumin [Mass/Vol] 3.4 g/dL Normal 2.9-4.4 [facility] Comment on above: Performed By: #### P RTELEC #### [facility] [address] [place] [address] Dr. Wilmer Francis Albumin/Globulin [Mass ratio] 1.1 {ratio} Normal 0.7-1.7 [facility] [place] Comment on above: Performed By: #### P RTELEC #### [facility] [address] [place] [address] Dr. Wilmer Francis Ijrnx-4-Opnwbpyg 0.4 g/dL Normal 0.0-0.4 [facility] Comment on above: Performed By: #### P RTELEC #### [facility] [address] [place] [address] Dr. Wilmer Francis Aoyqy-1-Zvxzgjwk 1.0 g/dL Normal 0.4-1.0 [facility] Comment on above: Performed By: #### P RTELEC #### [facility] [address] [place] [address] Dr. Wilmer Francis Beta Globulin 1.0 g/dL Normal 0.7-1.3 [facility] Comment on above: Performed By: #### P RTELEC #### [facility] [address] [place] [address] Dr. Wilmer Francis Gamma Globulin 0.7 g/dL Normal 0.4-1.8 [facility] Comment on above: Performed By: #### P RTELEC #### [facility] [address] [place] [address] Dr. Wilmer Francis Globulin (S) [Mass/Vol] 3.1 g/dL Normal 2.2-3.9 [facility] Comment on above: Performed By: #### P RTELEC #### [facility] [address] [address] [address] Wilmer Francis M-Antoine Comment: Normal Not Observed [facility] [place] Comment on above: Result Comment: SPE shows asymmetrical beta. Performed By: #### P RTELEC #### [facility] [address] [address] [address] Wilmer Francis PDF . Normal [facility] [place] Comment on above: Performed By: #### P RTELEC #### [facility] [address] [address] [address] Wilmer Francis Please note: Comment Normal [facility] [place] Comment on above: Result Comment: Prot ein electrophoresis scan will follow via computer, mail, or certified welder delivery. Performed By: #### P RTELEC #### [facility] [address] [place] [address] Dr. Wilmer Francis Protein [Mass/Vol] 6.5 g/dL Normal 6.0-8.5 [facility] Comment on above: Performed By: #### P RTELEC #### [facility] [address] [place] [address] Dr. Wilmer Francis RHEUMATOID FACTORon 06-20-20 22 RA Latex Turbid. 43.8 IU/mL Critically high <14.0 [facility] [place] Comment on above: Performed By: #### T SH, CRP #### [facility] [address] [place] [address] Dr. Wilmer Francis [facility] 122 mm/hr Critically high <=20 [facility] Comment on above: Performed By: #### B MORTUARY TECHNICIAN #### [facility] [address] [place] [address] Dr. Wilmer Francis XR CHEST 2 Von [...] KEVIN STANLEY Date: 2022-06-20 12:34 Normal [facility] BNPon 06-19-2022 Natriuretic peptide B (Bld) [Mass/Vol] 246.0 pg/mL Normal <=900.0 [facility] Comment on above: Performed By: #### B MORTUARY TECHNICIAN #### [facility] [address] [place] [address] Dr. Wilmer Francis CARDIAC BIPIN 3-6on 2 CK [Catalytic activity/Vol] 76 U/L Normal 39-308 [facility] Comment on above: Performed By: #### T SH, CRP #### [facility] [address] [place] [address] Dr. Wilmer Francis CK.MB [Mass/Vol] 2.18 ng/mL Normal <=3.60 The [facility] [place] Comment on above: Performed By: #### T SH, CRP #### [facility] [address] [place] [address] Dr. Wilmer Francis HSTROP 5.1 pg/mL Normal 4.0-76.1 [facility] Comment on above: Result Comment: CUT- OFF POINTS HAVE BEEN ESTABLISHED BASED ON THE FOURTH UNIVERSAL DEFINITIONS OF MYOCARDIAL INFARCTION. THE UPPER REFERENCE LIMIT (URL) OF TROPONIN, DEFINED THE 99TH PERCENTILE OF cTnI DISTRIBUTION IN A REFERENCE POPULATION, HAS BEEN CONFIRMED THE DECISION THRESHOLD FOR DC DIAGNOSIS. Performed By: #### T SH, CRP #### [facility] [address] [place] [address] Dr. Wilmer Francis CK [Catalytic activity/Vol] 90 U/L Normal 39-308 [facility] Comment on above: Performed By: #### P RTELEC #### [facility] [address] [place] [address] Dr. Wilmer Francis CK.MB [Mass/Vol] 1.91 ng/mL Normal <=3.60 The [facility] [place] Comment on above: Performed By: #### P RTELEC #### [facility] [address] [place] [address] Dr. Wilmer Francis HSTROP 4.8 pg/mL Normal 4.0-76.1 [facility] [place] Comment on above: Result Comment: CUT- OFF POINTS HAVE BEEN ESTABLISHED BASED ON THE FOURTH UNIVERSAL DEFINITIONS OF MYOCARDIAL INFARCTION. THE UPPER REFERENCE LIMIT (URL) OF TROPONIN, DEFINED THE 99TH PERCENTILE OF cTnI DISTRIBUTION IN A REFERENCE POPULATION, HAS BEEN CONFIRMED THE DECISION THRESHOLD FOR DC DIAGNOSIS. Performed By: #### P RTELEC #### [facility] [address] [place] [address] Dr. Wilmer Francis CARDIAC BIPIN ADMITon 022 CK [Catalytic activity/Vol] 86 U/L Normal 39-308 [facility] [place] Comment on above: Performed By: #### S EDR #### [facility] [address] [place] [address] Dr. Wilmer Francis CK.MB [Mass/Vol] 1.97 ng/mL Normal <=3.60 [facility] Comment on above: Performed By: #### S EDR #### [facility] [address] [place] [address] Dr. Wilmer Francis HSTROP 6.2 pg/mL Normal 4.0-76.1 [facility] [place] Comment on above: Result Comment: CUT- OFF POINTS HAVE BEEN ESTABLISHED BASED ON THE FOURTH UNIVERSAL DEFINITIONS OF MYOCARDIAL INFARCTION. THE UPPER REFERENCE LIMIT (URL) OF TROPONIN, DEFINED THE 99TH PERCENTILE OF cTnI DISTRIBUTION IN A REFERENCE POPULATION, HAS BEEN CONFIRMED THE DECISION THRESHOLD FOR DC DIAGNOSIS. Performed By: #### S EDR #### [facility] [address] [place] [address] Dr. Wilmer Francis CHANTE 59 ng/mL Normal 16-96 [facility] Comment on above: Performed By: #### S EDR #### [facility] [address] [place] [address] Dr. Wilmer Francis CBC AUTO DIFFon 06-19-2022 BASO # 0.0 103/ul Normal 0.0-0.1 [facility] [place] Comment on above: Performed By: #### B MORTUARY TECHNICIAN #### [facility] [address] [place] [address] Dr. Wilmer Francis Basophils/100 WBC (Bld) 0.1 % Critically low 0.2-2.0 [facility] [place] Comment on above: Performed By: #### B MORTUARY TECHNICIAN #### [facility] [address] [place] [address] Dr. Wilmer Francis EO # 0.0 103/ul Normal 0.0-0.7 [facility] [place] Comment on above: Performed By: #### B MORTUARY TECHNICIAN #### [facility] [address] [place] [address] Dr. Wilmer Francis Eosinophils/100 WBC (Bld) 0.0 % Critically low 0.9-7.0 [facility] [place] Comment on above: Performed By: #### B MORTUARY TECHNICIAN #### [facility] [address] [place] [address] Dr. Wilmer Francis Erythrocyte distribution width (RBC) [Ratio] 12.2 % Normal 11.0-15.0 [facility] [place] Comment on above: Performed By: #### B MORTUARY TECHNICIAN #### [facility] [address] [place] [address] Dr. Wilmer Francis Hematocrit (Bld) [Volume fraction] 38.3 % Critically low 42.0-54.0 [facility] [place] Comment on above: Performed By: #### B MORTUARY TECHNICIAN #### [facility] [address] [place] [address] Dr. Wilmer Francis Hemoglobin (Bld) [Mass/Vol] 13.6 g/dL Critically low 14.0-18.0 [facility] [place] Comment on above: Performed By: #### B MORTUARY TECHNICIAN #### [facility] [address] [place] [address] Dr. Wilmer Francis IG # 0.10 10e3/ul Critically high 0.00-0.03 [facility] Comment on above: Performed By: #### B MORTUARY TECHNICIAN #### [facility] [address] [place] [address] Dr. Wilmer Francis IG % 0.7 % Critically high 0.0-0.5 [facility] Comment on above: Performed By: #### B MORTUARY TECHNICIAN #### [facility] [address] [place] [address] Dr. Wilmer Francis LYMPH # 0.8 103/ul Critically low 1.2-3.8 [facility] Comment on above: Performed By: #### B MORTUARY TECHNICIAN #### [facility] [address] [place] [address] Dr. Wilmer Francis Lymphocytes/100 WBC (Bld) 5.0 % Critically low 20.5-60.0 [facility] [place] Comment on above: Performed By: #### B MORTUARY TECHNICIAN #### [facility] [address] [place] [address] Dr. Wilmer Francis MANUAL DIFF REQ NO Normal [facility] Comment on above: Performed By: #### B MORTUARY TECHNICIAN #### [facility] [address] [place] [address] Dr. Wilmer Francis MCH (RBC) [Entitic mass] 30.8 pg Normal 25.9-34.0 [facility] [place] Comment on above: Performed By: #### B MORTUARY TECHNICIAN #### [facility] [address] [place] [address] Dr. Wilmer Francis MCHC (RBC) [Mass/Vol] 35.5 g/dL Critically high 29.9-35.2 [facility] [place] Comment on above: Performed By: #### B MORTUARY TECHNICIAN #### [facility] [address] [place] [address] Dr. Wilmer Francis MCV (RBC) [Entitic vol] 86.8 fL Normal 80.0-94.0 [facility] [place] Comment on above: Performed By: #### B MORTUARY TECHNICIAN #### [facility] [address] [place] [address] Dr. Wilmer Francis MONO # 0.7 103/ul Normal 0.3-0.8 [facility] [place] Comment on above: Performed By: #### B MORTUARY TECHNICIAN #### [facility] [address] [place] [address] Dr. Wilmer Francis Monocytes/100 WBC (Bld) 4.2 % Normal 1.7-12.0 [facility] [place] Comment on above: Performed By: #### B MORTUARY TECHNICIAN #### [facility] [address] [place] [address] Dr. Wilmer Francis NEUT # 13.8 103/ul Critically high 1.4-6.5 [facility] Comment on above: Performed By: #### B MORTUARY TECHNICIAN #### [facility] [address] [address] [address] Wilmer Francis Neutrophils/100 WBC (Bld) 90.0 % Critically high 43.0-75.0 [facility] [place] Comment on above: Performed By: #### B MORTUARY TECHNICIAN #### [facility] [address] [place] [address] Dr. Wilmer Francis Platelet mean volume (Bld) [Entitic vol] 9.0 fL Critically low 9.5-13.5 [facility] [place] Comment on above: Performed By: #### B MORTUARY TECHNICIAN #### [facility] [address] [place] [address] Dr. Wilmer Francis PLT 298 103/ul Normal 150-450 [facility] [place] Comment on above: Performed By: #### B MORTUARY TECHNICIAN #### [facility] [address] [place] [address] Dr. Wilmer Francis RBC 4.41 106/ul Critically low 4.70-6.10 [facility] Comment on above: Performed By: #### B MORTUARY TECHNICIAN #### [facility] [address] [place] [address] Dr. Wilmer Francis WBC 15.3 103/ul Critically high 4.0-11.0 [facility] Comment on above: Performed By: #### B MORTUARY TECHNICIAN #### [facility] [address] [place] [address] Dr. Wilmer Francis CBC W MANUAL DIFFon 06-19-20 22 ATYPICAL LYMPH # Normal [facility] [place] Comment on above: Performed By: #### S EDR #### [facility] [address] [place] [address] Dr. Wilmer Francis ATYPICAL LYMPH % Normal [facility] [place] Comment on above: Performed By: #### S EDR #### [facility] [address] [place] [address] Dr. Wilmer Francis BAND # 0.0 103/ul Normal 0.0-0.3 [facility] Comment on above: Performed By: #### S EDR #### [facility] [address] [place] [address] Dr. Wilmer Francis BAND % 0 % Normal 0-5 [facility] Comment on above: Performed By: #### S EDR #### [facility] [address] [place] [address] Dr. Wilmer Francis BASOM # 0.00 103/ul Normal 0.00-0.10 [facility] Comment on above: Performed By: #### S EDR #### [facility] [address] [place] [address] Dr. Wilmer Francis BASOM % 0.0 % Critically low 0.2-2.0 [facility] Comment on above: Performed By: #### S EDR #### [facility] [address] [place] [address] Dr. Wilmer Francis BLAST # Normal [facility] [place] Comment on above: Performed By: #### S EDR #### [facility] [address] [place] [address] Dr. Wilmer Francis BLAST % Normal [facility] [place] Comment on above: Performed By: #### S EDR #### [facility] [address] [place] [address] Dr. Wilmer Francis CORRECTED WBC Normal 4.0-11.0 [facility] Comment on above: Performed By: #### S EDR #### [facility] [address] [place] [address] Dr. Wilmer Francis EOS # 0.15 103/ul Normal 0.00-0.70 [facility] Comment on above: Performed By: #### S EDR #### [facility] [address] [place] [address] Dr. Wilmer Francis EOS% 1.0 % Normal 0.9-7.0 [facility] Comment on above: Performed By: #### S EDR #### [facility] [address] [place] [address] Dr. Wilmer Francis HCT 38.7 % Critically low 42.0-54.0 [facility] Comment on above: Performed By: #### S EDR #### [facility] [address] [address] [address] Wilmer Francis HGB 13.8 g/dl Critically low 14.0-18.0 [facility] Comment on above: Performed By: #### S EDR #### [facility] [address] [address] [address] Wilmer Francis LYMPHM # 1.62 103/ul Normal 1.20-3.80 [facility] [place] Comment on above: Performed By: #### S EDR #### [facility] [address] [address] [address] Wilmer Francis LYMPHM% 11.0 % Critically low 20.5-60.0 [facility] Comment on above: Performed By: #### S EDR #### [facility] [address] [place] [address] Dr. Wilmer Francis MCH 30.5 pg Normal 25.9-34.0 [facility] [place] Comment on above: Performed By: #### S EDR #### [facility] [address] [address] [address] Wilmer Francis MCHC 35.7 g/dl Critically high 29.9-35.2 [facility] Comment on above: Performed By: #### S EDR #### [facility] [address] [place] [address] Dr. Wilmer Francis MCV 85.4 fL Normal 80.0-94.0 [facility] [place] Comment on above: Performed By: #### S EDR #### [facility] [address] [place] [address] Dr. Wilmer Francis METAMYELOCYTE # Normal [facility] Comment on above: Performed By: #### S EDR #### [facility] [address] [address] [address] Wilmer Francis METAMYELOCYTE % Normal [facility] Comment on above: Performed By: #### S EDR #### [facility] [address] [address] [address] Wilmer Francis MONOM# 1.18 103/ul Critically high 0.30-0.80 [facility] Comment on above: Performed By: #### S EDR #### [facility] [address] [address] [address] Wilmer Francis MONOM% 8.0 % Normal 1.7-12.0 [facility] [place] Comment on above: Performed By: #### S EDR #### [facility] [address] [address] [address] Wilmer Francis MPV 8.8 fL Critically low 9.5-13.5 [facility] Comment on above: Performed By: #### S EDR #### [facility] [address] [address] [address] Wilmer Francis MYELOCYTE # Normal [facility] [place] Comment on above: Performed By: #### S EDR #### [facility] [address] [address] [address] Wilmer Francis MYELOCYTE % Normal [facility] [place] Comment on above: Performed By: #### S EDR #### [facility] [address] [address] [address] Wilmer Francis NRBC Normal [facility] [place] Comment on above: Performed By: #### S EDR #### [facility] [address] [address] [address] Wilmer Francis PLT 302 103/ul Normal 150-450 [facility] [place] Comment on above: Performed By: #### S EDR #### [facility] [address] [address] [address] Wilmer Francis RBC 4.53 106/ul Critically low 4.70-6.10 [facility] Comment on above: Performed By: #### S EDR #### [facility] [address] [address] [address] Wilmer Francis RDW 12.1 % Normal 11.0-15.0 [facility] [place] Comment on above: Performed By: #### S EDR #### [facility] [address] [address] [address] Wilmer Francis SEG # 11.76 103/ul Critically high 1.40-6.50 [facility] Comment on above: Performed By: #### S EDR #### [facility] [address] [place] [address] Dr. Wilmer Francis SEG % 80.0 % Critically high 43.0-75.0 [facility] Comment on above: Performed By: #### S EDR #### [facility] [address] [address] [address] Wilmer Francis WBC 14.7 103/ul Critically high 4.0-11.0 [facility] Comment on above: Performed By: #### S EDR #### [facility] [address] [place] [address] Dr. Wilmer Francis CREATININE URINEon URINE CREAT 179.57 mg/dL Normal 20.00-300.00 [facility] Comment on above: Performed By: #### S EDR #### [facility] [address] [place] [address] Dr. Wilmer Francis CRPon 06-19-2022 CRP 7.0 mg/dL Critically high <=1.0 [facility] [facility] Comment on above: Performed By: #### T SH, CRP #### [facility] [address] [place] [address] Dr. Wilmer Francis CRP 3.9 mg/dL Critically high <=1.0 [facility] Comment on above: Performed By: #### S EDR #### [facility] [address] [place] [address] Dr. Wilmer Francis [facility]on [facility]-06 SARS-CoV-2 (COVID-19) RNA ALAINA+probe Ql (Unsp spec) Not detected Normal NOT DETECTED [facility] Comment on above: Result Comment: When diagnostic [...] for this test is supported by the Lean Specialist of Health and Human Service's declaration that [...] Performed By: #### T SH, CRP #### [facility] [address] [place] [address] Dr. Wilmer Francis INFLUENZA A AND B AGon 06-19 INFLUENZA A AG Negative Normal NEGATIVE SEE COMMENT [facility] Comment on above: Performed By: #### R SV, INFLUAB #### [facility] [address] [place] [address] Dr. Wilmer Francis INFLUENZA B AG Negative Normal NEGATIVE SEE COMMENT [facility] Comment on above: Performed By: #### R SV, INFLUAB #### [facility] [address] [place] [address] Dr. Wilmer Francis INTERNAL CONTROLS Within Normal Limits Normal Within Normal Limits [facility] Comment on above: Performed By: #### R SV, INFLUAB #### [facility] [address] [place] [address] Dr. Wilmer Francis LACTATE/LACTIC ACIDon 2021 Lactate [Moles/Vol] 1.0 mmol/L Normal 0.4-1.9 [facility] Comment on above: Performed By: #### S EDR #### [facility] [address] [place] [address] Dr. Wilmer Francis Lactate [Moles/Vol] 0.9 mmol/L Normal 0.4-1.9 [facility] Comment on above: Performed By: #### B MORTUARY TECHNICIAN #### [facility] [address] [place] [address] Dr. Wilmer Francis MICROALBUMIN, RAND URon 06-06 mALB 1.6 mg/L Normal <=30.0 [facility] Comment on above: Performed By: #### S EDR #### [facility] [address] [address] [address] Wilmer Francis PROF CHEM 8 (BAS METB)on Anion gap [Moles/Vol] 13.7 mmol/L Normal [facility] Comment on above: Performed By: #### B MP #### [facility] [address] [place] [address] Dr. Wilmer Francis Calcium [Mass/Vol] 8.9 mg/dL Normal 8.5-10.1 [facility] Comment on above: Performed By: #### B MP #### [facility] [address] [place] [address] Dr. Wilmer Francis Chloride [Moles/Vol] 87 mmol/L Critically low 98-107 [facility] [place] Comment on above: Performed By: #### B MP #### [facility] [address] [place] [address] Dr. Wilmer Francis CO2 [Moles/Vol] 28.6 mmol/L Normal 21.0-32.0 [facility] Comment on above: Performed By: #### B MP #### [facility] [address] [place] [address] Dr. Wilmer Francis Creatinine [Mass/Vol] 1.15 mg/dL Normal 0.70-1.30 [facility] Comment on above: Performed By: #### B MP #### [facility] [address] [place] [address] Dr. Wilmer Francis EGFR-AF MACEDONIAN >60 Normal >=60 [facility] Comment on above: Performed By: #### B MP #### [facility] [address] [place] [address] Dr. Wilmer Francis EGFR-NON AF MACEDONIAN >60 Normal >=60 [facility] Comment on above: Performed By: #### B MP #### [facility] [address] [place] [address] Dr. Wilmer Francsi Glucose [Mass/Vol] 295 mg/dL Critically high 74-106 [facility] Comment on above: Performed By: #### B MP #### [facility] [address] [place] [address] Dr. Wilmer Francis Potassium [Moles/Vol] 4.2 mmol/L Normal 3.5-5.1 [facility] Comment on above: Performed By: #### B MP #### [facility] [address] [address] [address] Wilmer Francis Sodium [Moles/Vol] 124 mmol/L Critically low 136-145 [facility] Comment on above: Performed By: #### B MP #### [facility] [address] [address] [address] Wilmer Francis Urea nitrogen [Mass/Vol] 14.0 mg/dL Normal 7.0-18.0 [facility] Comment on above: Performed By: #### B MP #### [facility] [address] [place] [address] Dr. Wilmer Francis Urea nitrogen/Creatinine [Mass ratio] 12.2 mg/mg Normal [facility] Comment on above: Performed By: #### B MP #### [facility] [address] [address] [address] Wilmer Francis Anion gap [Moles/Vol] 11.1 mmol/L Normal [facility] Comment on above: Performed By: #### T SH, CRP #### [facility] [address] [address] [address] Wilmer Francis Calcium [Mass/Vol] 9.0 mg/dL Normal 8.5-10.1 [facility] Comment on above: Performed By: #### T SH, CRP #### [facility] [address] [address] [address] Wilmer Francis Chloride [Moles/Vol] 86 mmol/L Critically low 98-107 [facility] Comment on above: Performed By: #### T SH, CRP #### [facility] [address] [address] [address] Wilmer Francis CO2 [Moles/Vol] 28.2 mmol/L Normal 21.0-32.0 [facility] Comment on above: Performed By: #### T SH, CRP #### [facility] [address] [place] [address] Dr. Wilmer Francis Creatinine [Mass/Vol] 0.77 mg/dL Normal 0.70-1.30 [facility] Comment on above: Performed By: #### T SH, CRP #### [facility] [address] [place] [address] Dr. Wilmer Francis EGFR-AF MACEDONIAN >60 Normal >=60 [facility] Comment on above: Performed By: #### T SH, CRP #### [facility] [address] [address] [address] Wilmer Francis EGFR-NON AF MACEDONIAN >60 Normal >=60 [facility] Comment on above: Performed By: #### T SH, CRP #### [facility] [address] [place] [address] Dr. Wilmer Francis Glucose [Mass/Vol] 183 mg/dL Critically high 74-106 [facility] Comment on above: Performed By: #### T SH, CRP #### [facility] [address] [place] [address] Dr. Wilmer Francis Potassium [Moles/Vol] 4.3 mmol/L Normal 3.5-5.1 [facility] Comment on above: Performed By: #### T SH, CRP #### [facility] [address] [place] [address] Dr. Wilmer Francis Sodium [Moles/Vol] 122 mmol/L Critically low 136-[address] [facility] Comment on above: Performed By: #### T SH, CRP #### [facility] [address] [place] [address] Dr. Wilmer Francis Urea nitrogen [Mass/Vol] 10.0 mg/dL Normal 7.0-18.0 [facility] Comment on above: Performed By: #### T SH, CRP #### [facility] [address] [place] [address] Dr. Wilmer Francis Urea nitrogen/Creatinine [Mass ratio] 13.0 mg/mg Normal [facility] Comment on above: Performed By: #### T SH, CRP #### [facility] [address] [place] [address] Dr. Wilmer Francis Anion gap [Moles/Vol] 9.0 mmol/L Normal [facility] Comment on above: Performed By: #### S EDR #### [facility] [address] [address] [address] Wilmer Francis Calcium [Mass/Vol] 9.2 mg/dL Normal 8.5-10.1 [facility] Comment on above: Performed By: #### S EDR #### [facility] [address] [address] [address] Wilmer Francis Chloride [Moles/Vol] 86 mmol/L Critically low 98-107 [facility] Comment on above: Performed By: #### S EDR #### [facility] [address] [place] [address] Dr. Wilmer Francis CO2 [Moles/Vol] 29.0 mmol/L Normal 21.0-32.0 [facility] Comment on above: Performed By: #### S EDR #### [facility] [address] [address] [address] Wilmer Francis Creatinine [Mass/Vol] 0.72 mg/dL Normal 0.70-1.30 [facility] Comment on above: Performed By: #### S EDR #### [facility] [address] [address] [address] Wilmer Francis EGFR-AF MACEDONIAN >60 Normal >=60 [facility] Comment on above: Performed By: #### S EDR #### [facility] [address] [address] [address] Wilmer Francis EGFR-NON AF MACEDONIAN >60 Normal >=60 [facility] Comment on above: Performed By: #### S EDR #### [facility] [address] [address] [address] Wilmer Francis Glucose [Mass/Vol] 135 mg/dL Critically high 74-106 [facility] Comment on above: Performed By: #### S EDR #### [facility] [address] [address] [address] Wilmer Francis Potassium [Moles/Vol] 4.0 mmol/L Normal 3.5-5.1 [facility] Comment on above: Performed By: #### S EDR #### [facility] [address] [address] [address] Wilmer Francis Sodium [Moles/Vol] 120 mmol/L Critically low 136-[address] [facility] Comment on above: Performed By: #### S EDR #### [facility] [address] [address] [address] Wilmer Francis Urea nitrogen [Mass/Vol] 9.0 mg/dL Normal 7.0-18.0 [facility] Comment on above: Performed By: #### S EDR #### [facility] [address] [address] [address] Wilmer Francis Urea nitrogen/Creatinine [Mass ratio] 12.5 mg/mg Normal [facility] Comment on above: Performed By: #### S EDR #### [facility] [address] [address] [address] Wilmer Francis RSVon 06-19-2022 RSV AG Negative Normal NEGATIVE [facility] Comment on above: Performed By: #### R SV, INFLUAB #### [facility] [address] [address] [address] Wilmer Francis [facility] SED [facility]ATE 77 mm/hr Critically high <=20 [facility] Comment on above: Performed By: #### S EDR #### [facility] [address] [address] [address] Wilmer Francis SED RATE 101 mm/hr Critically high <=20 [facility] Comment on above: Performed By: #### P RTELEC #### [facility] [address] [address] [address] Wilmer Francis SODIUM RANDOM URINEon 2021 Sodium (U) [Moles/Vol] 43 mmol/L Normal 30-90 [facility] Comment on above: Performed By: #### B MORTUARY TECHNICIAN #### [facility] [address] [address] [address] Wilmer Francis TSHon 06-19-2022 TSH 0.127 uIU/mL Critically low 0.358-3.740 [facility] Comment on above: Performed By: #### T SH, CRP #### [facility] [id number] Wilmer Francis URINE T PROTEIN CREAT RATIOo n 06-19-2022 Protein (U) [Mass/Vol] 26.2 mg/dL Critically high <=12.0 [facility] Comment on above: Performed By: #### S EDR #### [facility] [address] [address] [address] Wilmer Francis UR PROT CREAT RAT 0.15 Normal [facility] Comment on above: Performed By: #### S EDR #### [facility] [address] [address] [address] Wilmer Francis URINE CREAT 178.86 mg/dL Normal 20.00-300.00 [facility] Comment on above: Performed By: #### S EDR #### [facility] [address] [address] [address] Wilmer Francis XR CHEST 1 Von [...] KWAKU GEORGE Date: 2022-06-18 23:37 Normal [facility] COVID Quick Testingon 2021 Result Negative [facility] Other CBC Auto Differentialon -0 Basophils (Bld) [#/Vol] 0.05 10*3/uL [facility] Basophils/100 WBC (Bld) 1 % 0 - 2 % [employer] [place], [place] Differential Type NOT REPORTED [facility] [place], [facility] Eosinophils (Bld) [#/Vol] 10*3/uL [facility] Eosinophils/100 WBC (Bld) 0 % Low 1 - 4 % [place] Erythrocyte distribution width (RBC) [Ratio] 12.7 % 11.8 - 14.4 % [place] Hematocrit (Bld) [Volume fraction] 49.2 % 40.7 - 50.3 % [place] Hemoglobin (Bld) [Mass/Vol] 16.3 g/dL 13 - 17 g/dL [place] Immature granulocytes (Bld) [#/Vol] 0 % 0 [place] Immature granulocytes (Bld) [#/Vol] 0.04 10*3/uL [place] Interpretation and review of laboratory results Abnormal [place] Lymphocytes (Bld) [#/Vol] 1.63 10*3/uL [place] Lymphocytes/100 WBC (Bld) 18 % Low 24 - 43 % [place] MCH (RBC) [Entitic mass] 30.4 pg 25.2 - 33.5 pg [place] MCHC (RBC) [Mass/Vol] 33.1 g/dL 28.4 - 34.8 g/dL [place] MCV (RBC) [Entitic vol] 91.8 fL 82.6 - 102.9 fL [place] Monocytes (Bld) [#/Vol] 0.73 10*3/uL [place] Monocytes/100 WBC (Bld) 8 % 3 - 12 % [place] Platelet mean volume (Bld) [Entitic vol] 9.8 fL 8.1 - 13.5 fL [place], [place] Platelets (Bld) [#/Vol] NOT REPORTED [place] Platelets (Bld) [#/Vol] 295 10*3/uL [place] RBC (Bld) [#/Vol] 5.36 10*6/uL 4.21 - 5.7 7 m/uL [place] RBC morphology finding Nom (Bld) NOT REPORTED [place] Segmented neutrophils/100 WBC (Bld) 73 % High 36 - 65 % [place] Segs Absolute 6.51 [place], [place] WBC (Bld) [#/Vol] 9.0 10*3/uL [place] WBC (Bld) [#/Vol] 0.0 10*3/uL 0.0 per 10 0 WBC [place] WBC Morphology NOT REPORTED [place], [place] CBC with Diffon 06-07-2020 Abs. Basophil 0.05 k/uL Normal 0.00-0.20 [facility] Comment on above: Performed By: #### F T4, PSAS, LIPR #### [address] [address] Pellet Machine Operator: Jd Patricia MD #### CP, CDP, TSH #### [address] [place] [address] Pellet Machine Operator: Mohamud Zamudio MD Abs.Imm.Granulocyte 0.04 k/uL Normal 0.00-0.30 [facility] Comment on above: Performed By: #### F T4, PSAS, LIPR #### [address] [id number] [employer] Operator: Jd Patricia MD #### CP, CDP, TSH #### [address] [place] [address] Pellet Machine Operator: Mohamud Zamudio MD Abs.Neutrophil (Seg) 6.51 k/uL Normal 1.50-8.10 [facility] Comment on above: Performed By: #### F T4, PSAS, LIPR #### [address] [phone] Pellet Machine Operator: Jd Patricia MD #### CP, CDP, TSH #### [address] [place] [address] Pellet Machine Operator: Mohamud Zamudio MD Basophils/100 WBC (Bld) 1 % Normal 0-2 [facility] Comment on above: Performed By: #### F T4, PSAS, LIPR #### [address] [phone] Pellet Machine Operator: Jd Patricia MD #### CP, CDP, TSH #### [address] [place] [address] Pellet Machine Operator: Mohamud Zamudio MD Eosinophils (Bld) [#/Vol] 10*3/uL Normal 0.00-0.44 [facility] Comment on above: Performed By: #### F T4, PSAS, LIPR #### [address] [address] Pellet Machine Operator: Jd Patricia MD #### CP, CDP, TSH #### [address] [place] [address] Pellet Machine Operator: Mohamud Zamudio MD Eosinophils/100 WBC (Bld) 0 % Low 1-4 [facility] Comment on above: Performed By: #### F T4, PSAS, LIPR #### [address] [phone] Pellet Machine Operator: Jd Patrciia MD #### CP, CDP, TSH #### [address] [place] [address] Pellet Machine Operator: Mohamud Zamudio MD Erythrocyte distribution width (RBC) [Ratio] 12.7 % Normal 11.8-14.4 [facility] Comment on above: Performed By: #### F T4, PSAS, LIPR #### [address] [phone] Pellet Machine Operator: Jd Patricia MD #### CP, CDP, TSH #### [address] [place] [address] Pellet Machine Operator: Mohamud Zamudio MD Hematocrit (Bld) [Volume fraction] 49.2 % Normal 40.7-50.3 [facility] Comment on above: Performed By: #### F T4, PSAS, LIPR #### [address] [address] Pellet Machine Operator: Jd Patricia MD #### CP, CDP, TSH #### [facility] [address] [place] [address] Dr[place], [place] [phone] Pellet Machine Operator: Mohamud Zamudio MD Hemoglobin (Bld) [Mass/Vol] 16.3 g/dL Normal 13.0-17.0 [facility] Comment on above: Performed By: #### F T4, PSAS, LIPR #### [address] [address] Pellet Machine Operator: Jd Patricia MD #### CP, CDP, TSH #### [facility] [address] [place] [address] [address] [phone] Pellet Machine Operator: Mohamud Zamuido MD Immature granulocytes (Bld) [#/Vol] 0 % Normal 0 [facility] Comment on above: Performed By: #### F T4, PSAS, LIPR #### [address] [address] Pellet Machine Operator: Jd Patricia MD #### CP, CDP, TSH #### [address] [place], [place] [phone] Pellet Machine Operator: Mohamud Zamudio MD Lymphocytes (Bld) [#/Vol] 1.63 10*3/uL Normal 1.10-3.70 [facility] Comment on above: Performed By: #### F T4, PSAS, LIPR #### [address] [address] Pellet Machine Operator: Jd Patricia MD #### CP, CDP, TSH #### [facility] [address] [place], [place] [phone] Pellet Machine Operator: Mohamud Zamudio MD Lymphocytes/100 WBC (Bld) 18 % Low 24-43 [facility] Comment on above: Performed By: #### F T4, PSAS, LIPR #### [address] [address] Pellet Machine Operator: Jd Patricia MD #### CP, CDP, TSH #### [address] [place], [place] [id number] Pellet Machine Operator: Mohamud Zamudio MD MCH (RBC) [Entitic mass] 30.4 pg Normal 25.2-33.5 [facility] Comment on above: Performed By: #### F T4, PSAS, LIPR #### [address] [address] Pellet Machine Operator: Jd Patricia MD #### CP, CDP, TSH #### [address] [place] [phone] Pellet Machine Operator: Mohamud Zamudio MD MCHC (RBC) [Mass/Vol] 33.1 g/dL Normal 28.4-34.8 [facility] Comment on above: Performed By: #### F T4, PSAS, LIPR #### [address] [address] Pellet Machine Operator: Jd Patricia MD #### CP, CDP, TSH #### [address] [place] [phone] Pellet Machine Operator: Mohamud Zamudio MD MCV (RBC) [Entitic vol] 91.8 fL Normal 82.6-102.9 [facility] Comment on above: Performed By: #### F T4, PSAS, LIPR #### [address] [phone] Pellet Machine Operator: Jd Patricia MD #### CP, CDP, TSH #### [address] [place], [place] [phone] Pellet Machine Operator: Mohamud Zamudio MD Monocytes (Bld) [#/Vol] 0.73 10*3/uL Normal 0.10-1.20 [facility] Comment on above: Performed By: #### F T4, PSAS, LIPR #### [address] [address] Pellet Machine Operator: Jd Patricia MD #### CP, CDP, TSH #### [facility] [address] [phone] Pellet Machine Operator: Mohamud Zamudio MD Monocytes/100 WBC (Bld) 8 % Normal 3-12 [facility] Comment on above: Performed By: #### F T4, PSAS, LIPR #### [address] [address] Pellet Machine Operator: Jd Patricia MD #### CP, CDP, TSH #### [facility] [address] [place] [address] [address] [phone] Pellet Machine Operator: Mohamud Zamudio MD Neutrophil (Seg) 73 % High 36-65 [facility] Comment on above: Performed By: #### F T4, PSAS, LIPR #### [address] [address] Pellet Machine Operator: Jd Patricia MD #### CP, CDP, TSH #### [facility] [address] [place] [address] [address] [place] [phone] Pellet Machine Operator: Mohamud Zamudio MD NRBC Automated 0.0 per 100 WBC Normal 0.0 [facility] Comment on above: Performed By: #### F T4, PSAS, LIPR #### [address] [address] Pellet Machine Operator: Jd Patricia MD #### CP, CDP, TSH #### [facility] [address] [place], [place] [phone] Pellet Machine Operator: Mohamud Zamudio MD Platelet mean volume (Bld) [Entitic vol] 9.8 fL Normal 8.1-13.5 [facility] Comment on above: Performed By: #### F T4, PSAS, LIPR #### [facility] [address] [place] [address] Pellet Machine Operator: Jd Patricia MD #### CP, CDP, TSH #### [facility] [address] [place] [address] Dr[address] [place], [place] [phone] Pellet Machine Operator: Mohamud Zamudio MD Platelets (Bld) [#/Vol] 295 10*3/uL Normal 138-453 [facility] Comment on above: Performed By: #### F T4, PSAS, LIPR #### [address] [address] Pellet Machine Operator: Jd Patricia MD #### CP, CDP, TSH #### [address] [place] [phone] Pellet Machine Operator: Mohamud Zamudio MD RBC (Bld) [#/Vol] 5.36 10*6/uL Normal 4.21-5.77 [facility] Comment on above: Performed By: #### F T4, PSAS, LIPR #### [address] [address] Pellet Machine Operator: Jd Patricia MD #### CP, CDP, TSH #### [address] [place] [phone] Pellet Machine Operator: Mohamud Zamudio MD WBC (Bld) [#/Vol] 9.0 10*3/uL Normal 3.5-11.3 [facility] Comment on above: Performed By: #### F T4, PSAS, LIPR #### [address] [address] Pellet Machine Operator: Jd Patricia MD #### CP, CDP, TSH #### [address] [place] [phone] Pellet Machine Operator: Mohamud Zamudio MD Auto Diff Performed NOT REPORTED Normal [facility] Comment on above: Performed By: #### F T4, PSAS, LIPR #### [address] [address] Pellet Machine Operator: Jd Patricia MD #### CP, CDP, TSH #### [facility] [address] [place] [address] [place]. [place], [place] [phone] Pellet Machine Operator: Mohamud Zamudio MD Platelets (Bld) [#/Vol] NOT REPORTED Normal [facility] Comment on above: Performed By: #### F T4, PSAS, LIPR #### [address] [address] Pellet Machine Operator: Jd Patricia MD #### CP, CDP, TSH #### [address] [place] [phone] Pellet Machine Operator: Mohamud Zamudio MD RBC morphology finding Nom (Bld) NOT REPORTED Normal [facility] Comment on above: Performed By: #### F T4, PSAS, LIPR #### [address] [address] Pellet Machine Operator: Jd Patricia MD #### CP, CDP, TSH #### [address] [place] [phone] Pellet Machine Operator: Mohamud Zamudio MD WBC Morphology NOT REPORTED Normal [facility] Comment on above: Performed By: #### F T4, PSAS, LIPR #### [address] [address] Pellet Machine Operator: Jd Patricia MD #### CP, CDP, TSH #### [address] [place] [phone] Pellet Machine Operator: Mohamud Zamudio MD CT ABDOMEN PELVIS W [...] the right hemidiaphragm with associated right basilar atelectasis/scarrin g. No pericardial or pleural effusions. Organs: Liver, [...] in size. Right-sided fat filled inguinal hernia. Peritoneum/Retroper itoneum: No free air, free fluid or lymphadenopathy. Bones/Soft Tissues: Abdominal wall demonstrates no acute findings. Osseous structures demonstrate degenerative change. IMPRESSION: No acute intra-abdominal process. Interpreted by: Celso Cristobal Jr., DO Signed by: Celso Cristobal Jr., DO 06/07/20 Final result Normal [facility] CT ABDOMEN PELVIS W IV CONTR AST Additional Contrast? Oralon 06-07-2020 No acute intra-abdominal process. [facility], [place] EXAMINATION: CT OF THE ABDOMEN AND PELVIS [...] the right hemidiaphragm with associated right basilar atelectasis/scarrin g. No pericardial or pleural effusions. Organs: Liver, [...] in size. Right-sided fat filled inguinal hernia. Peritoneum/Retroper itoneum: No free air, free fluid or lymphadenopathy. Bones/Soft Tissues: Abdominal wall demonstrates no acute findings. Osseous structures demonstrate degenerative change. [facility] [place] Amol, Mhpn Incoming Radiant Results From [employer] - 06/07/2020 12:58 PM EST EXAMINATION: CT [...] the right hemidiaphragm with associated right basilar atelectasis/scarrin g. No pericardial or pleural effusions. Organs: Liver, [...] in size. Right-sided fat filled inguinal hernia. Peritoneum/Retroper itoneum: No free air, free fluid or lymphadenopathy. Bones/Soft Tissues: Abdominal wall demonstrates no acute findings. Osseous structures demonstrate degenerative change. IMPRESSION: No acute intra-abdominal process. [facility] [place] Comp Metabolic Profon 2019 (cont.) Normal [facility] Comment on above: Result Comment: Aver age GFR for 60-69 years old: 85 mL/min/1.73sq m Chronic Kidney Disease: <60 mL/min/1.73sq m Kidney failure: <15 mL/min/1.73sq m eGFR calculated using average adult body mass. Additional eGFR calculator available at: http://www.Burt.Maintenance Assistant/multiple_crcl_2012.htm Performed By: #### F T4, PSAS, LIPR #### [address] [place] [address] Pellet Machine Operator: Jd Patricia MD #### CP, CDP, TSH #### [address] [place], [place] [id number] Pellet Machine Operator: Mohamud Zamudio MD Albumin [Mass/Vol] 4.6 g/dL Normal 3.5-5.2 [facility] Comment on above: Performed By: #### F T4, PSAS, LIPR #### [address] [address] Pellet Machine Operator: Jd Patricia MD #### CP, CDP, TSH #### [facility] [address] [place] [address] [address] [phone] Pellet Machine Operator: Mohamud Zamudio MD Albumin/Globulin [Mass ratio] 1.3 {ratio} Normal 1.0-2.5 [facility] Comment on above: Performed By: #### F T4, PSAS, LIPR #### [address] [address] Pellet Machine Operator: Jd Patricia MD #### CP, CDP, TSH #### [address] [place], [place] [phone] Pellet Machine Operator: Mohamud Zamudio MD Alkaline Phos 76 U/L Normal 40-129 [facility] Comment on above: Performed By: #### F T4, PSAS, LIPR #### [address] [address] Pellet Machine Operator: Jd Patricia MD #### CP, CDP, TSH #### [address] [place], [place] [phone] Pellet Machine Operator: Mohamud Zamudio MD ALT [Catalytic activity/Vol] 26 U/L Normal 5-41 [facility] Comment on above: Performed By: #### F T4, PSAS, LIPR #### [address] [place] [address] Pellet Machine Operator: Jd Patricia MD #### CP, CDP, TSH #### [facility] [address] [place], [place] [phone] Pellet Machine Operator: Mohamud Zamudio MD Anion gap [Moles/Vol] 7 mmol/L Low 9-17 [facility] Comment on above: Performed By: #### F T4, PSAS, LIPR #### [address] [address] Pellet Machine Operator: Jd Patricia MD #### CP, CDP, TSH #### [facility] [address] [place], [place] [phone] Pellet Machine Operator: Mohamud Zamudio MD AST [Catalytic activity/Vol] 27 U/L Normal <40 [facility] Comment on above: Performed By: #### F T4, PSAS, LIPR #### [address] [address] Pellet Machine Operator: Jd Patricia MD #### CP, CDP, TSH #### [facility] [address] [place], [place] [phone] Pellet Machine Operator: Mohamud Zamudio MD Bilirubin Ql (U) 0.66 mg/dL Normal 0.3-1.2 [facility] Comment on above: Performed By: #### F T4, PSAS, LIPR #### [address] [place] [address] Pellet Machine Operator: Jd Patricia MD #### CP, CDP, TSH #### [facility] [address] [place], [place] [phone] Pellet Machine Operator: Mohamud Zamudio MD BUN/CRE Ratio 11 Normal 9-20 [facility] Comment on above: Performed By: #### F T4, PSAS, LIPR #### [address] [address] Pellet Machine Operator: Jd Patricia MD #### CP, CDP, TSH #### [address] [place], [place] [phone] Pellet Machine Operator: Mohamud Zamudio MD Calcium [Mass/Vol] 9.7 mg/dL Normal 8.6-10.4 [facility] Comment on above: Performed By: #### F T4, PSAS, LIPR #### [address] [id number] Pellet Machine Operator: Jd Patricia MD #### CP, CDP, TSH #### [address] [place] [address] Pellet Machine Operator: Mohamud Zamudio MD Chloride [Moles/Vol] 100 mmol/L Normal 98-107 [facility] Comment on above: Performed By: #### F T4, PSAS, LIPR #### [address] [address] Pellet Machine Operator: Jd Patricia MD #### CP, CDP, TSH #### [address] [place] [address] Pellet Machine Operator: Mohamud Zamudio MD CO2 [Moles/Vol] 30 mmol/L Normal 20-31 [facility] Comment on above: Performed By: #### F T4, PSAS, LIPR #### [address] [address] Pellet Machine Operator: Jd Patricia MD #### CP, CDP, TSH #### [address] [place] [address] Pellet Machine Operator: Mohamud Zamudio MD Creatinine [Mass/Vol] 0.74 mg/dL Normal 0.70-1.20 [facility] Comment on above: Performed By: #### F T4, PSAS, LIPR #### [address] [address] Pellet Machine Operator: Jd Patricia MD #### CP, CDP, TSH #### [facility] [address] [place], [place] [phone] Pellet Machine Operator: Mohamud Zamudio MD GFR, Amer >60 Normal >60 [facility] Comment on above: Performed By: #### F T4, PSAS, LIPR #### [address] [address] Pellet Machine Operator: Jd Patricia MD #### CP, CDP, TSH #### [address] [place] [address] Pellet Machine Operator: Mohamud Zamudio MD GFR,non Amer >60 Normal >60 [facility] Comment on above: Performed By: #### F T4, PSAS, LIPR #### [address] [address] Pellet Machine Operator: Jd Patricia MD #### CP, CDP, TSH #### [address] [place] [address] Pellet Machine Operator: Mohamud Zamudio MD Glucose [Mass/Vol] 140 mg/dL High 70-99 [facility] Comment on above: Performed By: #### F T4, PSAS, LIPR #### [address] [address] Pellet Machine Operator: Jd Patricia MD #### CP, CDP, TSH #### [facility] [address] [place] [address] Pellet Machine Operator: Mohamud Zamudio MD Potassium [Moles/Vol] 4.3 mmol/L Normal 3.7-5.3 [facility] Comment on above: Performed By: #### F T4, PSAS, LIPR #### [address] [address] Pellet Machine Operator: Jd Patricia MD #### CP, CDP, TSH #### [facility] [address] [place] [address] Pellet Machine Operator: Mohamud Zamudio MD Protein [Mass/Vol] 8.2 g/dL Normal 6.4-8.3 [facility] Comment on above: Performed By: #### F T4, PSAS, LIPR #### [address] [address] Pellet Machine Operator: Jd Patricia MD #### CP, CDP, TSH #### [facility] [address] [place] [address] [place] [address] Pellet Machine Operator: Mohamud Zamudio MD Sodium [Moles/Vol] 137 mmol/L Normal 135-144 [facility] Comment on above: Performed By: #### F T4, PSAS, LIPR #### [address] [address] Pellet Machine Operator: Jd Patricia MD #### CP, CDP, TSH #### [address] [place] [address] Pellet Machine Operator: Mohamud Zamudio MD Staging: Normal [facility] Comment on above: Result Comment: Stag e 1: Some kidney damage normal GFR Stage 2: Mild kidney damage GFR 60-89 Stage 3: Moderate kidney damage GFR 30-59 Stage 4: Severe kidney damage GFR 15-29 Stage 5: Severe kidney damage GFR <15 ESRD - chronic treatment by dialysis or transplant Performed By: #### F T4, PSAS, LIPR #### [address] [place] [address] Pellet Machine Operator: Jd Patricia MD #### CP, CDP, TSH #### [facility] [address] [place] [address] Pellet Machine Operator: Mohamud Zamudio MD Urea nitrogen [Mass/Vol] 8 mg/dL Normal 8-23 [facility] Comment on above: Performed By: #### F T4, PSAS, LIPR #### [facility] [address] [place], [place] [phone] Pellet Machine Operator: Jd Patricia MD #### CP, CDP, TSH #### [facility] [address] [place] [address] Pellet Machine Operator: Mohamud Zamudio MD Comprehensive Metabolic Pane [facility] 06-07-2020 Albumin [Mass/Vol] 4.6 g/dL 3.5 - 5.2 g/dL [place], [place] Albumin/Globulin [Mass ratio] 1.3 {ratio} [place] ALP [Catalytic activity/Vol] 76 U/L 40 - 129 U/L [place] ALT [Catalytic activity/Vol] 26 U/L 5 - 41 U/L [place] Anion gap [Moles/Vol] 7 mmol/L Low 9 - 17 mmol/L [place] AST [Catalytic activity/Vol] 27 U/L <40 [place] Bilirubin Ql (U) 0.66 mg/dL 0.3 - 1.2 mg/dL [place] Bun/Cre Ratio 11 [place] Calcium [Mass/Vol] 9.7 mg/dL 8.6 - 10. 4 mg/dL [place] Chloride [Moles/Vol] 100 mmol/L 98 - 10 7 mmol/L [place] CO2 [Moles/Vol] 30 mmol/L 20 - 31 mmol/L [place] Creatinine [Mass/Vol] 0.74 mg/dL 0.7 - 1.2 mg/dL [place] GFR >60 >60 mL/min [place] GFR Non- >60 >60 mL/min [place] Glucose [Mass/Vol] 140 mg/dL High 70 - 99 mg/dL [place], [place] Interpretation and review of laboratory results Abnormal [place] Potassium [Moles/Vol] 4.3 mmol/L 3.7 - 5.3 mmol/L [place] Protein [Mass/Vol] 8.2 g/dL 6.4 - 8.3 g/dL [place] Sodium [Moles/Vol] 137 mmol/L 135 - 144 mmol/L [place] Urea nitrogen [Mass/Vol] 8 mg/dL 8 - 23 mg/dL [place] Lipid Panelon 06-07-2020 Cholesterol [Mass/Vol] 194 mg/dL <200 [place] Comment on above: Cholesterol Guidelines: <200 Desirable 200-240 Borderline >240 Undesirable Cholesterol in HDL [Mass/Vol] 54 mg/dL >40 [place] Comment on above: HDL Guidelines: <40 Undesirable 40-59 Borderline >59 Desirable Cholesterol in LDL [Mass/Vol] 124 mg/dL 0 - 130 mg/dL [place] Comment on above: LDL Guidelines: <100 Desirable 100-129 Near to/above Desirable 130-159 Borderline >159 Undesirable Direct (measured) LDL and calculated LDL are not interchangeable tests. Cholesterol in VLDL [Mass/Vol] NOT REPORTED 1 - 30 mg/dL [place] Cholesterol.total/Cho lesterol in HDL [Mass ratio] 3.6 {ratio} <5 [place] Triglyceride [Mass/Vol] 81 mg/dL <150 [place] Comment on above: Triglyceride Guidelines: <150 Desirable 150-199 Borderline 200-499 High >499 Very high Based on AHA Guidelines for fasting triglyceride, April 2012. Lipid Profileon 06-07-2020 Cholesterol [Mass/Vol] 194 mg/dL Normal <200 [facility] Comment on above: Result Comment: Cholesterol Guidelines: <200 Desirable 200-240 Borderline >240 Undesirable Performed By: #### F T4, PSAS, LIPR #### [facility] [employer] [address] [place] [address] Pellet Machine Operator: Jd Patricia MD #### CP, CDP, TSH #### [facility] [address] [place] [address] Pellet Machine Operator: Mohamud Zamudio MD Cholesterol in HDL [Mass/Vol] 54 mg/dL Normal >40 [facility] Comment on above: Result Comment: HDL Guidelines: <40 Undesirable 40-59 Borderline >59 Desirable Performed By: #### F T4, PSAS, LIPR #### [address] [address] Pellet Machine Operator: Jd Patricia MD #### CP, CDP, TSH #### [address] [place] [phone] Pellet Machine Operator: Mohamud Zamudio MD Cholesterol in LDL [Mass/Vol] 124 mg/dL Normal 0-130 [facility] Comment on above: Result Comment: LDL Guidelines: <100 Desirable 100-129 Near to/above Desirable 130-159 Borderline >159 Undesirable Direct (measured) LDL and calculated LDL are not interchangeable tests. Performed By: #### F T4, PSAS, LIPR #### [address] [address] Pellet Machine Operator: Jd Patricia MD #### CP, CDP, TSH #### [address] [place] [phone] Pellet Machine Operator: Mohamud Zamudio MD Cholesterol.total/Cho lesterol in HDL [Mass ratio] 3.6 {ratio} Normal <5 [facility] Comment on above: Performed By: #### F T4, PSAS, LIPR #### [address] [address] Pellet Machine Operator: Jd Patricia MD #### CP, CDP, TSH #### [facility] [address] [place] [address] [address] [place] [phone] Pellet Machine Operator: Mohamud Zamudio MD Triglyceride [Mass/Vol] 81 mg/dL Normal <150 [facility] Comment on above: Result Comment: Triglyceride Guidelines: <150 Desirable 150-199 Borderline 200-499 High >499 Very high Based on AHA Guidelines for fasting triglyceride, April 2012. Performed By: #### F T4, PSAS, LIPR #### [address] [phone] Pellet Machine Operator: Jd Patricia MD #### CP, CDP, TSH #### [facility] [address] [place] [address] Pellet Machine Operator: Mohamud Zamudio MD Cholesterol in VLDL [Mass/Vol] NOT REPORTED Normal 1- [facility] Comment on above: Performed By: #### F T4, PSAS, LIPR #### [facility] [address] [place], [place] [phone] Pellet Machine Operator: Jd Patricia MD #### CP, CDP, TSH #### [facility] [address] [place] [address] Pellet Machine Operator: Mohamud Zamudio MD [facility] KAYCEE DIGITAL DIAGNOSTIC BILATERALon 06-07-2020 [facility] KAYCEE DIGITAL DIAGNOSTIC BILATERAL EXAMINATION: DIAGNOSTIC [...] evidence for gynecomastia. No mass, distortion or microcalcifications . Few skin calcifications are noted. TARGETED ULTRASOUND: [...] James Samuel MD 06/07/20 Final result Normal [facility] Metabolic Panelon 06-07-2020 GFR/1.73 sq M predicted among non-blacks MDRD (S/P/Bld) [Vol rate/Area] [facility] [place] Comment on above: Average GFR for 60-6 9 years old: 85 mL/min/1.73sq m Chronic Kidney Disease: <60 mL/min/1.73sq m Kidney failure: <15 mL/min/1.73sq m eGFR calculated using average adult body mass. Additional eGFR calculator available at: http://www.light/multiple_crcl_2012.htm Stage 1: Some kidney damage normal GFR Stage 2: Mild kidney damage GFR 60-89 Stage 3: Moderate kidney damage GFR 30-59 Stage 4: Severe kidney damage GFR 15-29 Stage 5: Severe kidney damage GFR <15 ESRD - chronic treatment by dialysis or transplant Otheron 06-07-2020 1. Negative bilateral mammogram. No evidence for gynecomastia. 2. Negative targeted ultrasound in the area of localized symptoms on the left side. Clinical follow-up is recommended. BI-RADS 1 BIRADS: BIRADS - CATEGORY 1 Negative. OVERALL ASSESSMENT - NEGATIVE A letter of notification will be sent to the patient regarding the results. [facility] [place] EXAMINATION: DIAGNOSTIC DIGITAL BILATERAL BREASTS MAMMOGRAM WITH [...] evidence for gynecomastia. No mass, distortion or microcalcifications . Few skin calcifications are noted. TARGETED ULTRASOUND: Targeted ultrasound was performed in the focal area of left-sided symptoms, located in the 12 o'clock position, 2 cm from the nipple. No sonographic abnormality identified. No enlarged or suspicious left axillary lymph nodes. [place], [place] Amol, Mhpn Incoming Radiant Results From [employer] - 06/07/2020 12:14 PM EST EXAMINATION: DIAGNOSTIC [...] evidence for gynecomastia. No mass, distortion or microcalcifications . Few skin calcifications are noted. TARGETED ULTRASOUND: [...] sent to the patient regarding the results. [place], [place] PSA, Screeningon 06-07-2020 Prostatic Spec. Ag 0.47 ug/L Normal <4.1 [facility] Comment on above: Result Comment: The Graciela ECLIA assay is used. Results obtained with different assay methods cannot be used interchangeably. Performed By: #### F T4, PSAS, LIPR #### [employer] [address] [place] [address] Pellet Machine Operator: Jd Patricia MD #### CP, CDP, TSH #### [facility] [address] [place] [address] Pellet Machine Operator: Mohamud Zamudio MD T4, Freeon 06-07-2020 Thyroxine, Free 1.37 ng/dL 0.93 - 1.7 ng/dL [place] TSH without Reflexon 020 TSH Qn 0.70 m[IU]/L [place], [place] Thyroid Stim. Horm.on 2019 TSH Qn 0.70 m[IU]/L Normal 0.30-5.00 [facility] Comment on above: Performed By: #### F T4, PSAS, LIPR #### [facility] [employer] [address] [place], [place] [phone] Pellet Machine Operator: Jd Patricia MD #### CP, CDP, TSH #### [facility] [address] [place] [address] Pellet Machine Operator: Mohamud Zamudio MD Thyroxine, Freeon 06-07-2020 Thyroxine, Free 1.37 ng/dL Normal 0.93-1.70 [facility] Comment on above: Performed By: #### F T4, PSAS, LIPR #### [facility] [address] [place], [place] [id number] Pellet Machine Operator: Jd Patricia MD #### CP, CDP, TSH #### [facility] [address] [place] [address] [place] [address] Pellet Machine Operator: Mohamud Zamudio MD US BREAST COMPLETE LEFTon [...] evidence for gynecomastia. No mass, distortion or microcalcifications . Few skin calcifications are noted. TARGETED ULTRASOUND: [...] James Samuel MD 06/07/20 Final result Normal [facility] Vital Signs Date Time Vital Sign Value Performing Clinician Facility 07-14-2021 14:30-0500 Body height 170.18 cm Jazmin Ginty Other [facility] Other 07-14-2021 14:30-0500 Body mass index (BMI) [Ratio] 33.67 kg/m2 Jazmin Ginty Other [facility] Other 07-14-2021 14:30-0500 Body temperature 97.7 [degF] Jazmin Ginty Other [facility] Other 07-14-2021 14:30-0500 Body weight 97.52 kg Jazmin Ginty Other [facility] Other 07-14-2021 14:30-0500 Respiratory rate 16 /min Jazmin Ginty Other [facility] Other 07-14-2021 14:30-0500 SaO2% (BldA) [Mass fraction] 92 % Jazmin Ginty Other [facility] Other Encounters Encounter Date Encounter Type Care Provider Facility Start: 12-18-2022 End: 12-18-2022 ambulatory [facility] Start: 12-04-[address] JOE MUSA Fac ility:[facility] Start: 11-28-2022 End: 11-29-[address] JOE MUSA Facility:[facility] Start: 10-31-2022 End: 11-01-[address] JOE MUSA Facility:[facility] Start: 10-22-2022 End: 10-23-2022 ambulatory DARIN AIKEN Vito Facility:[facility] Start: 09-06-2022 End: 09-07-[address] KEVIN STANLEY Facility:[facility] Start: 07-16-2022 End: 07-17-[address] JOE MUSA Facility:[facility] Start: 06-20-2022 End: 06-22-2022 Evaluation and management of inpatient DR HAMLET QUINN Facility:[facility] Start: 07-14-2021 End: 07-14-2021 ambulatory Jazmin Ginty Other [facility] Other Start: 07-14-2021 Office outpatient vi sit 15 minutes Jazmin Ginty [facility] Start: 06-07-2020 End: 06-10-2020 Patient encounter procedure JOE MUSA [facility] Start: 06-07-2020 End: 06-09-2020 Subsequent hospital visit by physician [facility] Drawing Room [facility] Laboratory Comment on above: Arrived Breast lump Generalized abdomina l pain Lump in central port ion of left breast Lump or mass in [address] Procedures Date Procedure Procedure Detail Performing Clinician Start: 12-04-[address] JOE MUSA Comment on above: Performed By: #### B MORTUARY TECHNICIAN #### [facility] [address] [address] [address] Wilmer Francis Start: 09-09-2022 Cyclic citrullinated peptide antibody Comment on above: Performed By: #### C BC/2A, MSEP, ANAFX, ACAX3, C3-C4, ESRCRP, TSHFX, VD25, CCP, RHF, URCA, HBSAG, HCV #### [facility] [address] [facility], [address] Start: 07-16-[address] JOE MUSA Comment on above: Performed By: #### T , CRP #### [facility] [address] [place] [address] Dr. Wilmer Francis Start: 06-07-2020 [object Object] Cheryl beauchamp Comment on above: The Graciela ECLIA as say is used. Results obtained with different assay methods cannot be used interchangeably. Start: 06-07-2020 Us breast uni real t olimpia with image complete JOE LENCHO Start: 06-07-2020 Ct abdomen & pelvis w/contrast material JOE LENCHO Start: 06-07-2020 Us breast uni real t olimpia with image complete Joe Jl Musa Work Phone: Start: 06-07-2020 Diagnostic mammograp hy computer-aided detcj bi JOE LENCHO Start: 06-07-2020 Assay of free thyroxine JOE LENCHO Start: 06-07-2020 Assay of thyroid stimulating hormone tsh JOEISACC MUSA Start: 06-07-2020 Blood count complete auto&auto difrntl wbc JOE LENCHO Start: 06-07-2020 Comprehensive metabo lic panel JOE LENCHO Start: 06-07-2020 Lipid panel JOE HER PEARSON Start: 06-07-2020 PSA screening JOE TONIO FREDRICK Start: 06-07-2020 Ct abdomen & pelvis w/contrast material Joe Jl Musa Work Phone: Start: 06-07-2020 Diagnostic mammograp hy computer-aided detcj bi Joe Musa Work Phone: Start: 06-07-2020 Assay of free thyroxine Joe Musa Work Phone: Start: 06-07-2020 Assay of thyroid stimulating hormone tsh Joe Musa Work Phone: Start: 06-07-2020 Blood count complete auto&auto difrntl wbc Joe Musa Work Phone: Start: 06-07-2020 Comprehensive metabo lic panel Joe Musa Work Phone: Start: 06-07-2020 Lipid panel Joe Escobedo erring Work Phone: Start: 06-07-2020 PSA screening Joe Musa Work Phone: Plan of Treatment Date Care Activity Detail Author Start: 06-07-2025 Lipid panel Lipid screen [place], [place] Start: 03-07-2020 Influenza vaccination Flu vaccine (# 1) [place] Start: 11-16-2005 Screening for malign ant neoplasm of colon Colon cancer screen colonoscopy [place] Start: 11-16-2005 Shingles Vaccine (1 of 2) Shingles Vaccine (1 of 2) [place], [place] Start: 1995 Lipid panel Lipid screen [place], [place] Start: 11-16-1974 DTaP/Tdap/Td vaccine (1 - Tdap) DTaP/Tdap/Td vaccine (1 - Tdap) [place] Start: 11-16-1970 HIV screening HIV screen [place], [place] Start: 1955 Hepatitis C screening Hepatitis C sc reen [place] Payers Date Payer Category Payer Private Health Insurance [id number] 1959 Medicare [id number] 2. [id number] 1959 Self-pay 1955 Unknown [id number] 2.16.8 [id number] 1955 Unknown [id number] 2.16.8 [id number] 1955 Unknown [id number] 2.16.8 [id number] 1955 Unknown [id number] 2.16.8 [id number] 1955 Unknown [id number] 2.16.8 [id number] 1955 Unknown [id number] 2.16.84 [id number] 1955 Unknown [id number] 2.16.84 [id number] 1955 Unknown [id number] 2.16.84 [id number] 1955 Unknown [id number] 2.16.84 [id number] 1955 Unknown [id number] 2.16.84 0.1.866491.3.579.2.593 1955 Unknown [id number] 2.16.84 0.1.946095.3.579.2.593 1955 Unknown [id number] 2.16.84 0.1.200747.3.579.2.593 1955 Unknown [id number] 2.16.84 [id number] Unknown [id number] 2.16.84 [id number] Social History Date Type Detail Facility Tobacco smoking status PAIS Unknown if ev er smoked [place] Sex Assigned At Not on file [place] Exposure to SARS-CoV -2 (event) Not sure [place] Sex Assigned At Sex Assigned At Bir [facility] Other Progress note 12-18-2022 Note Date & Type Note Facility 12-18-2022 Note [facility] Subjective Bipin Ulloa is a 67 y.o. year old male patient being seen for 1 year follow up hypertension and hyperlipidemia. Had routine labs 2 weeks [address] He sees Dr. Aiken for emphysema. Denies chest pain. Says he [...] also has COPD/emphysema and follows pulmonary [Dr. Aiken]. He has been having shortness of breath [...] is no d (more content not included)... [facility] Evaluation note 07-14-2021 Note Date & [...] Patient care instructions given in writting by [facility] Care At Home document [facility] Other History general Narrative - Reported Note Date & Type Note Facility History general Narrative - Reported Type Medical History high blood pressure Surgical History cyst on head Hospitalization History pnemonia Hospitalization History stress related [facility] Other Reason for Referral Status Reason Specialty Diagnoses / Procedures Referred By Contact Referred To Contact Pending Review Radiology Diagnoses Breast lump Procedures US BREAST COMPLETE LEFT Joe Musa MD [facility] [address] [address] Status Reason Specialty Diagnoses / Procedures Referred By Contact Referred To Contact Pending Review Radiology Diagnoses Generalized abdominal pain Procedures CT ABDOMEN PELVIS W IV CONTRAST Additional Contrast? Oral Joe Musa MD [facility] [address] [address] Status Reason Specialty Diagnoses / Procedures Referre d By Contact Referred To Contact Closed Radiology Diagnoses Lump or mass in breast Procedures [facility] Joe Musa MD [address] [place] [address] Assessments Diagnosis Breast lump Lump or mass [...] Diagnoses Unspecified lump in unspecified breast Procedures [facility] BREAST COMP Joe Musa MD [address] [place] [address] [facility] Ultrasound [address] [place] [address] Status Reason Specialty Diagnoses / Procedures Referre d By Contact Referred To Contact Closed Radiology Diagnoses Generalized abdominal pain Procedures CT ABDOMEN PELVIS W CONTRAST Joe Musa MD [address] [place] [address] [facility] [address] Scan [address] [place], [place] [id number] Status Reason Specialty Diagnoses / Procedures Referred By Contact Referred To Contact Authorized Radiology Diagnoses Unspecified lump in unspecified breast Procedures US BREAST COMP Joe Musa MD [address] [place] [address] [facility] Ultrasound [address] [place], [place] [id number] Status Reason Specialty Diagnoses / Procedures Referre d By Contact Referred To Contact Closed Radiology Diagnoses Lump or mass in breast Procedures [facility]AGNOST[facility] BILATERAL Joe Musa MD [address] [address] (unrecognized sect ion and content) No Status Records FoundNo Status Records FoundNo Status Records FoundNo Status Records Found INFORMATION SOURCE (unrecogn ized section and content) DATE CREATED AUTHOR 06/10/2020 [facility] DATE CREATED AUTHOR AUTHOR'S ORGANIZ ATION 12/13/2022 [facility] DATE CREATED AUTHOR AUTHOR'S ORGANIZ ATION 12/18/2022 [facility] DATE CREATED AUTHOR AUTHOR'S ORGANIZ ATION 08/14/2023 [facility] FOR RECORDS PERTAINING TO PATIENTS WHO ARE [...] BE BASED ON THE PRIMARY CLINICAL RECORDS. [facility]. provides no warranty or guarantee of the accuracy or completeness of information in this document.
[2023-10-16 10:57] LABS: Creatinine Urine Random 154.07 mg/dL (20.00-300.00); Microalbum Creatinine Ratio Ur 8.4 mg/g (0.0-29.9); Microalbumin Urine Random 1.3 mg/dL (<=30.0)
[2023-10-16 12:34] LABS: Anion Gap 11.4; BUN Creatinine Ratio 16.1; Calcium 9.3 mg/dL (8.5-10.1); Carbon Dioxide 30.7 mmol/L (21.0-32.0); Chloride 101 mmol/L (98-107); Cholesterol 139 mg/dL (<=200); Estimated GFR (African America >60 (>=60); Estimated GFR (Non-African Ame >60 (>=60); Glucose 108 mg/dL (74-106); HDL Cholesterol 69 mg/dL (40-60); Potassium 4.1 mmol/L (3.5-5.1); Sodium 139 mmol/L (136-145); Triglycerides 44 mg/dL (<=150); VLDL CHOLESTEROL 8.8 mg/dL
[2023-10-16 12:53] LABS: Prostate Specific Antigen Scrn 0.79 ng/mL (<=4.00)
== END 2023-10-16 10:16 | disposition home or self-care (01) ==
LOC: LAB 10:17
PROVIDERS: PCP Family Medicine; Visit Provider Family Medicine
DX: R60.0 Localized edema (principal); E55.9 Vitamin D deficiency, unspecified; E78.5 Hyperlipidemia, unspecified; R73.03 Prediabetes; Z12.5 Encounter for screening for malignant neoplasm of prostate
CPT/HCPCS: 36415; 80048; 80061; 82043; 82306; 82570; G0103

== ENCOUNTER 2023-11-21 09:46 | Outpatient (OUT) | payer MEDICARE, SELFPAY ==
--- NOTE | 2023-11-21 09:52 | CT_ITS ---
[address] [address] Patient Name: BIPIN ULLOA MRN: [id number] date: 1955 Sex: M Assigned Patient Location: CT Current Patient Location: CT Accession/Order Number: [id number] Exam Date: 11/21/2023 10:04 Report Date: 11/21/2023 15:06 At the request of: DARIN AIKEN Procedure: CT lung screening low-dose EXAMINATION: CT lung screening low-dose HISTORY: Screening For Malignant Neoplasm In Respiratory Organs COMPARISON: 07/16/2022 TECHNIQUE: Axial, Coronal, and Sagittal images were created without the administration of IV contrast material. Dose reduction techniques were achieved by using automated exposure control and/or adjustment of mA and/or kV according to patient size and/or use of iterative reconstruction technique. FINDINGS: LUNGS: Scattered punctate subcentimeter pulmonary nodules measuring up to 4 mm in the right upper lobe, axial image 42. Patchy opacity identified in the anterior and medial basilar segments of the right lower lobe with air bronchograms. Atelectasis is favored. Area of focal subpleural opacity medial basilar segment of the left lower lobe is significantly improved now linear in appearance PLEURA: No pneumothorax or pleural effusion. Elevation of the right hemidiaphragm VASCULATURE: No abnormality. NAKITA: No mass or pathologic adenopathy. MEDIASTINUM: No mass or pathologic adenopathy. CARDIAC: No enlargement or pericardial effusion CORONARY ARTERIES: Coronary calcifications are moderate. AORTA: No aortic aneurysm. Mild calcific atherosclerosis CHEST WALL: No mass or axillary adenopathy BONES: No bone lesion or fracture. LIMITED ABDOMEN: No suspicious findings. Limited images of the upper abdomen. OTHER: Negative. CT/CT lung screening low-dose IMPRESSION: LUNG SCREENING: Lung-RADS Category 2- Benign Appearance or Behavior. Nodules with a very low likelihood of becoming a clinically active cancer due to size or lack of growth. 2. Continue annual screening with LDCT in 12 months. Electronically authenticated by: KEVIN STANLEY Date: 11/21/2023 15:06
--- OUTSIDE RECORDS SUMMARY | 2023-11-21 09:56 | XMS_ITS | CCD ---
Author Organization [facility] Care Team Providers Care Continuous [employer] Supervisor Name Role Phone Joe Musa Primary Care Provider [phone] MUSA, JOE Referring Unavailable MUSA, JOE Primary [...] DR NUHA Ortiz Consulting Unavailable [place], DR HAMELT Parikh Admitting Unavailable MUSA, DR JOE Parikh [...] Unavailable DR KEVIN STANLEY V Consulting Unavailable [facility] [place], DR REDDY Attending Unavailable [facility] [place], DR REDDY Admitting Unavailable LENCHO, DR JOE Parikh Primary Care Unavailable [facility] [place], DR REDDY Consulting Unavailable MARCIANO NEWELL Attending Unavailable Allergies Allergy Classification Reported Allergen(s) Allergy Type Date of Onset Reaction(s) Facility (1 source) Azithromycin Drug Allergy 06-19-2022 [facility] Repository Medications Current Medications Medication Drug Class(es) Dates Sig (Normalized) Sig (Original) [id number] actuat albuterol 0.09 mg/actuat metered dose [...] left breast] Other aftercare (5 sources) 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 [facility], [address] ALK PHOS 62 U/L Normal (38 - 126) [facility] Comment on above: Order Comment: [facility]IL [facility]: [facility] - [id number] Performed By: #### C BC/2A, MSEP, ANAFX, ACAX3, C3-C4, ESRCRP, TSHFX, VD25, CCP, RHF, URCA, HBSAG, HCV #### [facility] [address] [facility], [address] ALT [Catalytic activity/Vol] 20 U/L Normal (1 - 45) [facility] Comment on above: Order Comment: [facility]ACIL ITY: [facility] - [id number] Performed By: #### C BC/2A, MSEP, ANAFX, ACAX3, C3-C4, ESRCRP, TSHFX, VD25, CCP, RHF, URCA, HBSAG, HCV #### [facility] [address] [facility], [address] AST [Catalytic activity/Vol] 28 U/L Normal (15 - 46) [facility] Comment on above: Order Comment: [facility]IL [facility]: [facility] - [id number] Performed By: #### C BC/2A, MSEP, ANAFX, ACAX3, C3-C4, ESRCRP, TSHFX, VD25, CCP, RHF, URCA, HBSAG, HCV #### [facility] [address] [facility], [address] Creatinine [Mass/Vol] 0.65 mg/dL Low (0.66 - 1.25) [facility] Comment on above: Order Comment: [facility]IL [facility]: [facility] - [id number] Performed By: #### C BC/2A, MSEP, ANAFX, ACAX3, C3-C4, ESRCRP, TSHFX, VD25, CCP, RHF, URCA, HBSAG, HCV #### [facility] [address] [facility], [address] GFR- AMER 148.3 ML/M1.7 Normal (60.0 - 161.8) [facility] Comment on above: Order Comment: [facility]IL [facility]: [facility] - [id number] Performed By: #### C BC/2A, MSEP, ANAFX, ACAX3, C3-C4, ESRCRP, TSHFX, VD25, CCP, RHF, URCA, HBSAG, HCV #### [facility] [address] [facility], [address] GFR-NON AFRIC-AMER 122.5 ML/M1.7 Normal (60.0 - 133.8) [facility] Comment on above: Order Comment: [facility]IL ITY: [facility] - [id number] Performed By: #### C BC/2A, MSEP, ANAFX, ACAX3, C3-C4, ESRCRP, TSHFX, VD25, CCP, RHF, URCA, HBSAG, HCV #### [facility] [address] [facility], [id number] Hematocrit (Bld) [Volume fraction] 45.1 % Normal (42.0 - 52.0) [facility] Comment on above: Order Comment: [facility]IL IT[facility]: [facility] - [id number] Performed By: #### C BC/2A, MSEP, ANAFX, ACAX3, C3-C4, ESRCRP, TSHFX, VD25, CCP, RHF, URCA, HBSAG, HCV #### [facility] [address] [facility], [id number] Hemoglobin (Bld) [Mass/Vol] 15.0 g/dL Normal (14.0 - 18.0) [facility] Comment on above: Order Comment: [facility]IL [facility]: [facility] - [id number] Performed By: #### C BC/2A, MSEP, ANAFX, ACAX3, C3-C4, ESRCRP, TSHFX, VD25, CCP, RHF, URCA, HBSAG, HCV #### [facility] [address] [facility], [id number] MCH (RBC) [Entitic mass] 31.3 pg Normal (27.0 - 33.0) [facility] Comment on above: Order Comment: [facility]IL ITY: [facility] - [id number] Performed By: #### C BC/2A, MSEP, ANAFX, ACAX3, C3-C4, ESRCRP, TSHFX, VD25, CCP, RHF, URCA, HBSAG, HCV #### [facility] [address] [facility], [address] MCHC (RBC) [Mass/Vol] 33.3 g/dL Normal (30.0 - 37.0) [facility] Comment on above: Order Comment: [facility]ACIL ITY: [facility] - [id number] Performed By: #### C BC/2A, MSEP, ANAFX, ACAX3, C3-C4, ESRCRP, TSHFX, VD25, CCP, RHF, URCA, HBSAG, HCV #### [facility] [address] [facility], [address] MCV (RBC) [Entitic vol] 94.0 fL Normal (80.0 - 94.0) [facility] Comment on above: Order Comment: FACIL ITY: [facility] - [id number] Performed By: #### C BC/2A, MSEP, ANAFX, ACAX3, C3-C4, ESRCRP, TSHFX, VD25, CCP, RHF, URCA, HBSAG, HCV #### [facility] [address] [facility], [address] PLT 260 x10^3ul Normal (130 - 400) [facility] Comment on above: Order Comment: FACIL ITY: [facility] - [id number] Performed By: #### C BC/2A, MSEP, ANAFX, ACAX3, C3-C4, ESRCRP, TSHFX, VD25, CCP, RHF, URCA, HBSAG, HCV #### [facility] [address] [facility], [address] RBC 4.80 x10^6ul Normal (4.70 - 6.10) [facility] Comment on above: Order Comment: FACIL ITY: [facility] - [id number] Performed By: #### C BC/2A, MSEP, ANAFX, ACAX3, C3-C4, ESRCRP, TSHFX, VD25, CCP, RHF, URCA, HBSAG, HCV #### [facility] [address] [facility], [address] WBC 8.04 x10^3ul Normal (3.80 - 10.60) [facility] Comment on above: Order Comment: [facility]ACIL ITY: [facility] - [id number] Performed By: #### C BC/2A, MSEP, ANAFX, ACAX3, C3-C4, ESRCRP, TSHFX, VD25, CCP, RHF, URCA, HBSAG, HCV #### [facility] [address] [facility], [id number] SED RATE - CRPon 08-13-2023 CRP EXTENDED RANGE 1.75 MG/L Normal (0.00 - 3.20) [facility] Comment on above: Performed By: #### C BC/2A, MSEP, ANAFX, ACAX3, C3-C4, ESRCRP, TSHFX, VD25, CCP, RHF, URCA, HBSAG, HCV #### [facility] [address] [facility], [id number] SED RATE WEST. 7 MM/HR Normal (0 - 24) [facility] Comment on above: Performed By: #### C BC/2A, MSEP, ANAFX, ACAX3, C3-C4, ESRCRP, TSHFX, VD25, CCP, RHF, URCA, HBSAG, HCV #### [facility] [address] [facility], [id number] CBC, ALB, ALT, AST, ALK AND CREAon 01-23-2023 Albumin [Mass/Vol] 4.4 g/dL Normal (3.5 - 5.0) [facility] Comment on above: Order Comment: FACIL ITY: [facility] - [id number] Performed By: #### C BC/2A, MSEP, ANAFX, ACAX3, C3-C4, ESRCRP, TSHFX, VD25, CCP, RHF, URCA, HBSAG, HCV #### [facility] [address] [facility], [address] ALK PHOS 68 U/L Normal (38 - 126) [facility] Comment on above: Order Comment: [facility]ACIL ITY: [facility] - [id number] Performed By: #### C BC/2A, MSEP, ANAFX, ACAX3, C3-C4, ESRCRP, TSHFX, VD25, CCP, RHF, URCA, HBSAG, HCV #### [facility] [address] [facility], [address] ALT [Catalytic activity/Vol] 26 U/L Normal (1 - 45) [facility] Comment on above: Order Comment: [facility]ACIL ITY: [facility] - [id number] Performed By: #### C BC/2A, MSEP, ANAFX, ACAX3, C3-C4, ESRCRP, TSHFX, VD25, CCP, RHF, URCA, HBSAG, HCV #### [facility] [address] [facility], [address] AST [Catalytic activity/Vol] 34 U/L Normal (15 - 46) [facility] Comment on above: Order Comment: [facility]ACIL ITY: [facility] - [id number] Performed By: #### C BC/2A, MSEP, ANAFX, ACAX3, C3-C4, ESRCRP, TSHFX, VD25, CCP, RHF, URCA, HBSAG, HCV #### [facility] [address] [facility], [address] Creatinine [Mass/Vol] 0.71 mg/dL Normal (0.66 - 1.25) [facility] Comment on above: Order Comment: FACIL ITY: [facility] - [id number] Performed By: #### C BC/2A, MSEP, ANAFX, ACAX3, C3-C4, ESRCRP, TSHFX, VD25, CCP, RHF, URCA, HBSAG, HCV #### [facility] [address] [facility], [address] GFR- AMER 133.9 ML/M1.7 Normal (60.0 - 161.8) [facility] Comment on above: Order Comment: FACIL ITY: [facility] - [id number] Performed By: #### C BC/2A, MSEP, ANAFX, ACAX3, C3-C4, ESRCRP, TSHFX, VD25, CCP, RHF, URCA, HBSAG, HCV #### [facility] [address] [facility], [address] GFR-NON AFRIC-AMER 110.7 ML/M1.7 Normal (60.0 - 133.8) [facility] Comment on above: Order Comment: FACIL ITY: [facility] - [id number] Performed By: #### C BC/2A, MSEP, ANAFX, ACAX3, C3-C4, ESRCRP, TSHFX, VD25, CCP, RHF, URCA, HBSAG, HCV #### [facility] [address] [facility], [address] Hematocrit (Bld) [Volume fraction] 46.5 % Normal (42.0 - 52.0) [facility] Comment on above: Order Comment: [facility]ACIL ITY: [facility] - [id number] Performed By: #### C BC/2A, MSEP, ANAFX, ACAX3, C3-C4, ESRCRP, TSHFX, VD25, CCP, RHF, URCA, HBSAG, HCV #### [facility] [address] [facility], [address] Hemoglobin (Bld) [Mass/Vol] 15.0 g/dL Normal (14.0 - 18.0) [facility] Comment on above: Order Comment: FACIL ITY: [facility] - [id number] Performed By: #### C BC/2A, MSEP, ANAFX, ACAX3, C3-C4, ESRCRP, TSHFX, VD25, CCP, RHF, URCA, HBSAG, HCV #### [facility] [address] [facility], [address] MCH (RBC) [Entitic mass] 29.1 pg Normal (27.0 - 33.0) [facility] Comment on above: Order Comment: [facility]ACIL ITY: [facility] - [id number] Performed By: #### C BC/2A, MSEP, ANAFX, ACAX3, C3-C4, ESRCRP, TSHFX, VD25, CCP, RHF, URCA, HBSAG, HCV #### [facility] [address] [facility], [address] MCHC (RBC) [Mass/Vol] 32.3 g/dL Normal (30.0 - 37.0) [facility] Comment on above: Order Comment: FACIL ITY: [facility] - [id number] Performed By: #### C BC/2A, MSEP, ANAFX, ACAX3, C3-C4, ESRCRP, TSHFX, VD25, CCP, RHF, URCA, HBSAG, HCV #### [facility] [address] [facility], [address] MCV (RBC) [Entitic vol] 90.1 fL Normal (80.0 - 94.0) [facility] Comment on above: Order Comment: FACIL ITY: [facility] - [id number] Performed By: #### C BC/2A, MSEP, ANAFX, ACAX3, C3-C4, ESRCRP, TSHFX, VD25, CCP, RHF, URCA, HBSAG, HCV #### [facility] [address] [facility], [id number] (468) PLT 305 x10^3ul Normal (130 - 400) [facility] Comment on above: Order Comment: FACIL ITY: [facility] - [id number] Performed By: #### C BC/2A, MSEP, ANAFX, ACAX3, C3-C4, ESRCRP, TSHFX, VD25, CCP, RHF, URCA, HBSAG, HCV #### [facility] [address] [facility], [address] RBC 5.16 x10^6ul Normal (4.70 - 6.10) [facility] Comment on above: Order Comment: FACIL ITY: [facility] - [id number] Performed By: #### C BC/2A, MSEP, ANAFX, ACAX3, C3-C4, ESRCRP, TSHFX, VD25, CCP, RHF, URCA, HBSAG, HCV #### [facility] [address] [facility], [address] WBC 9.64 x10^3ul Normal (3.80 - 10.60) [facility] Comment on above: Order Comment: FACIL ITY: [facility] - [id number] Performed By: #### C BC/2A, MSEP, ANAFX, ACAX3, C3-C4, ESRCRP, TSHFX, VD25, CCP, RHF, URCA, HBSAG, HCV #### [facility] [address] [facility], [address] SED RATE - CRPon --2022 CRP EXTENDED RANGE 2.76 MG/L Normal (0.00 - 3.20) [facility] Comment on above: Performed By: #### C BC/2A, MSEP, ANAFX, ACAX3, C3-C4, ESRCRP, TSHFX, VD25, CCP, RHF, URCA, HBSAG, HCV #### [facility] [address] [facility], [address] SED RATE WEST. 15 MM/HR Normal (0 - 24) [facility] Comment on above: Performed By: #### C BC/2A, MSEP, ANAFX, ACAX3, C3-C4, ESRCRP, TSHFX, VD25, CCP, RHF, URCA, HBSAG, HCV #### [facility] [address] [facility], [address] VITAMIN D, 25 HYDROXYon - VITAMIN D, 25 51.3 NG/ML Normal (30.0 - 100.0) [facility] Comment on above: Result Comment: * * * VITAMIN D, 25 HYDROXY GENERAL GUIDELINE * * * DEFICIENCY = < OR = 20.0 NG/ML INSUFFICIENCY = 20.1 - 29.9 NG/ML SUFFICIENCY = 30.0 - 100.0 NG/ML TOXICITY = > 100.1 NG/ML Performed By: #### C BC/2A, MSEP, ANAFX, ACAX3, C3-C4, ESRCRP, TSHFX, VD25, CCP, RHF, URCA, HBSAG, HCV #### [facility] [address] [facility], [address] Office Visiton 12-18-2022 Follow-up visit [id number] Bipin Ulloa 1955 M Date Provider Department Center 12/18/2022 MARCIANO MEZA [facility] Family History Problem Relation Age of Onset Heart failure Father Coronary artery disease Father Family Status - Relation Status Age at Father Level of Service:02491 OR OFFICE/OUTPATIENT ESTABLISHED LOW MDM 20-29 MIN Normal [facility] FREE T3on 12-04-2022 FREE T3 2.98 pg/mlL Normal 2.18-3.98 [facility] Comment on above: Performed By: #### S EDR #### [facility] [address] [place] [address] Dr. Wilmer Francis FREE T4on 12-04-2022 Free T4 [Mass/Vol] 1.25 ng/dL Normal 0.76-1.46 [facility] Comment on above: Performed By: #### B TUGGER OPERATOR #### [facility] [address] [place] [address] Dr. Wilmer Francis LIPID PROFILEon 12-04-2022 CHOL-HDL RATIO NORM SEE BELOW Normal [facility] Comment on above: Result Comment: 3.3 - 4.4 LOW RISK 4.4 - 7.1 AVERAGE RISK 7.1 - 11.0 MODERATE RISK >11.0 HIGH RISK Performed By: #### S EDR #### [facility] [address] [place] [address] Dr. Wilmer Francis Cholesterol [Mass/Vol] 137 mg/dL Normal <=200 [facility] Comment on above: Performed By: #### S EDR #### [facility] [address] [place] [address] Dr. Wilmer Francis Cholesterol in HDL [Mass/Vol] 53 mg/dL Normal 40-60 [facility] Comment on above: Performed By: #### S EDR #### [facility] [address] [address] [address] Wilmer Francis Cholesterol in LDL [Mass/Vol] 66.2 mg/dL Normal [facility] Comment on above: Performed By: #### S EDR #### [facility] [address] [address] [address] Wilmer Francis Cholesterol.total/Cho lesterol in HDL [Mass ratio] 2.6 {ratio} Normal [facility] Comment on above: Performed By: #### S EDR #### [facility] [address] [place] [address] Dr. Wilmer Francis HDL NORMAL > or = 60 mg/dl - LOW CARDIOVASCULAR RISK <40 mg/dl - HIGH CARDIOVASCULAR RISK Normal [facility] Comment on above: Performed By: #### S EDR #### [facility] [address] [address] [address] Wilmer Francis LDL CALC NORMAL SEE BELOW Normal [facility] Comment on above: Result Comment: <100 mg/dl OPTIMAL 100 - 129 mg/dl NEAR OR ABOVE OPTIMAL 130 - 159 mg/dl BORDERLINE HIGH 160 - 189 mg/dl HIGH >190 mg/dl VERY HIGH Performed By: #### S EDR #### [facility] [address] [place] [address] Dr. Wilmer Francis Triglyceride [Mass/Vol] 89 mg/dL Normal <=150 [facility] Comment on above: Performed By: #### S EDR #### [facility] [address] [address] [address] Wilmer Francis VLDL CALC 17.8 mg/dL Normal [facility] Comment on above: Performed By: #### S EDR #### [facility] [address] [place] [address] Dr. Wilmer Francis PROF 14(COMP METB)on 023 Albumin [Mass/Vol] 3.5 g/dL Normal 3.4-5.0 [facility] Comment on above: Performed By: #### S EDR #### [facility] [address] [address] [address] Wilmer Francis Albumin/Globulin [Mass ratio] 0.9 {ratio} Normal [facility] Comment on above: Performed By: #### S EDR #### [facility] [address] [address] [address] Wilmer Francis ALP [Catalytic activity/Vol] 76 U/L Normal 46-116 [facility] Comment on above: Performed By: #### S EDR #### [facility] [address] [address] [address] Wilmer Francis ALT [Catalytic activity/Vol] 25 U/L Normal 16-63 [facility] Comment on above: Performed By: #### S EDR #### [facility] [address] [place] [address] Dr. Wilmer Francis Anion gap [Moles/Vol] 12.6 mmol/L Normal [facility] Comment on above: Performed By: #### S EDR #### [facility] [address] [place] [address] Dr. Wilmer Francis AST [Catalytic activity/Vol] 17 U/L Normal 15-37 [facility] Comment on above: Performed By: #### S EDR #### [facility] [address] [place] [address] Dr. Wilmer Francis Bilirubin [Mass/Vol] 0.4 mg/dL Normal 0.2-1.0 [facility] Comment on above: Performed By: #### S EDR #### [facility] [address] [place] [address] Dr. Wilmer Francis Calcium [Mass/Vol] 9.5 mg/dL Normal 8.5-10.1 [facility] Comment on above: Performed By: #### S EDR #### [facility] [address] [place] [address] Dr. Wilmer Francis Chloride [Moles/Vol] 98 mmol/L Normal 98-107 [facility] Comment on above: Performed By: #### S EDR #### [facility] [address] [address] [address] Wilmer Francis CO2 [Moles/Vol] 31.0 mmol/L Normal 21.0-32.0 [facility] Comment on above: Performed By: #### S EDR #### [facility] [address] [place] [address] Dr. Wilmer Francis Creatinine [Mass/Vol] 1.13 mg/dL Normal 0.70-1.30 [facility] Comment on above: Performed By: #### S EDR #### [facility] [address] [place] [address] Dr. Wilmer Francis EGFR-AF MALAWIAN >60 Normal >=60 [facility] Comment on above: Performed By: #### S EDR #### [facility] [address] [place] [address] Dr. Wilmer Francis EGFR-NON AF MALAWIAN >60 Normal >=60 [facility] Comment on above: Performed By: #### S EDR #### [facility] [address] [place] [address] Dr. Wilmer Francis Globulin (S) [Mass/Vol] 4.1 g/dL Normal [facility] Comment on above: Performed By: #### S EDR #### [facility] [address] [place] [address] Dr. Wilmer Francis Glucose [Mass/Vol] 123 mg/dL Critically high 74-106 T [facility] Comment on above: Performed By: #### S EDR #### [facility] [address] [place] [address] Dr. Wilmer Francis Potassium [Moles/Vol] 4.6 mmol/L Normal 3.5-5.1 [facility] Comment on above: Performed By: #### S EDR #### [facility] [address] [place] [address] Dr. Wilmer Francis Protein [Mass/Vol] 7.6 g/dL Normal 6.4-8.2 [facility] Comment on above: Performed By: #### S EDR #### [facility] [address] [place] [address] Dr. Wilmer Francis Sodium [Moles/Vol] 137 mmol/L Normal 136-145 [facility] Comment on above: Performed By: #### S EDR #### [facility] [address] [place] [address] Dr. Wilmer Francis Urea nitrogen [Mass/Vol] 14.0 mg/dL Normal 7.0-18.0 [facility] Comment on above: Performed By: #### S EDR #### [facility] [address] [place] [address] Dr. Wilmer Francis Urea nitrogen/Creatinine [Mass ratio] 12.4 mg/mg Normal [facility] Comment on above: Performed By: #### S EDR #### [facility] [address] [place] [address] Dr. Wilmer Francis TSHon 12-04-2022 TSH 0.479 uIU/mL Normal 0.358-3.740 [facility] Comment on above: Performed By: #### S EDR #### [facility] [address] [place] [address] Dr. Wilmer Francis ALBUMINon 11-28-2022 Albumin [Mass/Vol] 3.3 g/dL Critically low 3.4-5.0 [facility] Comment on above: Performed By: #### P RTELEC #### [facility] [address] [place] [address] Dr. Wilmer Francis ALKALINE PHOSPHAon ALP [Catalytic activity/Vol] 72 U/L Normal 46-116 [facility] Comment on above: Performed By: #### P RTELEC #### [facility] [address] [place] [address] Dr. Wilmer Francis CBC AUTO DIFFon 11-28-2022 BASO # 0.1 103/ul Normal 0.0-0.1 [facility] Comment on above: Performed By: #### S EDR #### [facility] [address] [place] [address] Dr. Wilmer Francis Basophils/100 WBC (Bld) 0.7 % Normal 0.2-2.0 [facility] Comment on above: Performed By: #### S EDR #### [facility] [address] [address] [address] Wilmer Francis EO # 0.8 103/ul Critically high 0.0-0.7 [facility] Comment on above: Performed By: #### S EDR #### [facility] [address] [address] [address] Wilmer Francis Eosinophils/100 WBC (Bld) 9.1 % Critically high 0.9-7.0 [facility] Comment on above: Performed By: #### S EDR #### [facility] [address] [address] [address] Wilmer Francis Erythrocyte distribution width (RBC) [Ratio] 13.9 % Normal 11.0-15.0 [facility] Comment on above: Performed By: #### S EDR #### [facility] [address] [place] [address] Dr. Wilmer Francis Hematocrit (Bld) [Volume fraction] 39.4 % Critically low 42.0-54.0 [facility] Comment on above: Performed By: #### S EDR #### [facility] [address] [place] [address] Dr. Wilmer Francis Hemoglobin (Bld) [Mass/Vol] 13.2 g/dL Critically low 14.0-18.0 [facility] Comment on above: Performed By: #### S EDR #### [facility] [address] [address] [address] Wilmer Francis IG # 0.11 10e3/ul Critically high 0.00-0.03 [facility] Comment on above: Performed By: #### S EDR #### [facility] [address] [address] [address] Wilmer Francis IG % 1.3 % Critically high 0.0-0.5 [facility] Comment on above: Performed By: #### S EDR #### [facility] [address] [address] [address] Wilmer Francis LYMPH # 1.9 103/ul Normal 1.2-3.8 [facility] Comment on above: Performed By: #### S EDR #### [facility] [address] [address] [address] Wilmer Francis Lymphocytes/100 WBC (Bld) 21.8 % Normal 20.5-60.0 [facility] Comment on above: Performed By: #### S EDR #### [facility] [address] [address] [address] Wilmer Francis MANUAL DIFF REQ NO Normal [facility] Comment on above: Performed By: #### S EDR #### [facility] [address] [address] [address] Wilmer Francis MCH (RBC) [Entitic mass] 28.3 pg Normal 25.9-34.0 [facility] Comment on above: Performed By: #### S EDR #### [facility] [address] [place] [address] Dr. Wilmer Francis MCHC (RBC) [Mass/Vol] 33.5 g/dL Normal 29.9-35.2 [facility] Comment on above: Performed By: #### S EDR #### [facility] [address] [address] [address] Wilmer Francis MCV (RBC) [Entitic vol] 84.5 fL Normal 80.0-94.0 [facility] Comment on above: Performed By: #### S EDR #### [facility] [address] [place] [address] Dr. Wilmer Francis MONO # 0.9 103/ul Critically high 0.3-0.8 [facility] Comment on above: Performed By: #### S EDR #### [facility] [address] [address] [address] Wilmer Francis Monocytes/100 WBC (Bld) 9.9 % Normal 1.7-12.0 [facility] Comment on above: Performed By: #### S EDR #### [facility] [address] [address] [address] Wilmer Francis NEUT # 4.9 103/ul Normal 1.4-6.5 [facility] Comment on above: Performed By: #### S EDR #### [facility] [address] [address] [address] Wilmer Francis Neutrophils/100 WBC (Bld) 57.2 % Normal 43.0-75.0 [facility] Comment on above: Performed By: #### S EDR #### [facility] [address] [address] [address] Wilmer Francis Platelet mean volume (Bld) [Entitic vol] 8.3 fL Critically low 9.5-13.5 [facility] Comment on above: Performed By: #### S EDR #### [facility] [address] [address] [address] Wilmer Francis PLT 329 103/ul Normal 150-450 [facility] Comment on above: Performed By: #### S EDR #### [facility] [address] [address] [address] Wilmer Francis RBC 4.66 106/ul Critically low 4.70-6.10 [facility] Comment on above: Performed By: #### S EDR #### [facility] [address] [address] [address] Wilmer Francis WBC 8.6 103/ul Normal 4.0-11.0 [facility] Comment on above: Performed By: #### S EDR #### [facility] [address] [address] [address] Wilmer Francis CREATININEon 11-28-2022 Creatinine [Mass/Vol] 1.00 mg/dL Normal 0.70-1.30 [facility] Comment on above: Performed By: #### P RTELEC #### [facility] [address] [address] [address] Wilmer Francis EGFR-AF MALAWIAN >60 Normal >=60 [facility] Comment on above: Performed By: #### P RTELEC #### [facility] [address] [address] [address] Wilmer Francis EGFR-NON AF MALAWIAN >60 Normal >=60 [facility] Comment on above: Performed By: #### P RTELEC #### [facility] [address] [place] [address] Dr. Wilmer Francis CRPon 11-28-2022 CRP 2.5 mg/dL Critically high <=1.0 [facility] Comment on above: Performed By: #### P RTELEC #### [facility] [address] [place] [address] Dr. Wilmer Francis SED RATE WESTERGREN 2022 SED RATE 71 mm/hr Critically high <=20 [facility] Comment on above: Performed By: #### S EDR #### [facility] [address] [place] [address] Dr. Wilmer Francis SGOTon 11-28-2022 AST [Catalytic activity/Vol] 16 U/L Normal 15-37 [facility] Comment on above: Performed By: #### P RTELEC #### [facility] [address] [place] [address] Dr. Wilmer Francis SGPTon 11-28-2022 ALT [Catalytic activity/Vol] 27 U/L Normal 16-63 [facility] Comment on above: Performed By: #### P RTELEC #### [facility] [address] [place] [address] ORBIT WO CONon [...] KEVIN STANLEY Date: 2022-10-31 09:47 Normal [facility] CT CHEST WO CONon 10-22-2022 CT CHEST [...] GIAN MELENDEZ Date: 2022-10-22 12:17 Normal [facility] JUICE WITH REFLEX MELISSA TESTSon 09-09-2022 JUICE by HEp-2 CELLS Negative Normal (NEG - NEG) [facility] Comment on above: Performed By: #### C BC/2A, MSEP, ANAFX, ACAX3, C3-C4, ESRCRP, TSHFX, VD25, CCP, RHF, URCA, HBSAG, HCV #### [facility] [address] [facility], [address] JUICE TITER 1:40 Normal (<1:40 - 1:40) [facility] Comment on above: Performed By: #### C BC/2A, MSEP, ANAFX, ACAX3, C3-C4, ESRCRP, TSHFX, VD25, CCP, RHF, URCA, HBSAG, HCV #### [facility] [address] [facility], [address] MELISSA-6 REFLEXED NO Normal () [facility] Comment on above: Performed By: #### C BC/2A, MSEP, ANAFX, ACAX3, C3-C4, ESRCRP, TSHFX, VD25, CCP, RHF, URCA, HBSAG, HCV #### [facility] [address] [place] [address] [facility], [address] C3 AND C4on 09-09-2022 C 3 138 MG/DL Normal (88 - 165) [facility] Comment on above: Performed By: #### C BC/2A, MSEP, ANAFX, ACAX3, C3-C4, ESRCRP, TSHFX, VD25, CCP, RHF, URCA, HBSAG, HCV #### [facility] [address] [place] [address] [facility], [address] C 4 21 MG/DL Normal (14 - 44) [facility] Comment on above: Performed By: #### C BC/2A, MSEP, ANAFX, ACAX3, C3-C4, ESRCRP, TSHFX, VD25, CCP, RHF, URCA, HBSAG, HCV #### [facility] [address] [place] [address] [facility], [address] CARDIOLIPIN IGG, IGA, IGMon 09-09-2022 JAVON, IgA 3.1 U/mL Low (14.0 - 20.0) [facility] Comment on above: Performed By: #### C BC/2A, MSEP, ANAFX, ACAX3, C3-C4, ESRCRP, TSHFX, VD25, CCP, RHF, URCA, HBSAG, HCV #### [facility] [address] [place] [address] [facility], [address] JAVON, IgG 1.0 U/mL Low (10.0 - 40.0) [facility] Comment on above: Performed By: #### C BC/2A, MSEP, ANAFX, ACAX3, C3-C4, ESRCRP, TSHFX, VD25, CCP, RHF, URCA, HBSAG, HCV #### [facility] [address] [facility], [id number] JAVON, IgM 3.3 U/mL Low (10.0 - 40.0) [facility] Comment on above: Performed By: #### C BC/2A, MSEP, ANAFX, ACAX3, C3-C4, ESRCRP, TSHFX, VD25, CCP, RHF, URCA, HBSAG, HCV #### [facility] [address] [place], [place] [address] [facility], [id number] CBC, ALB, ALT, AST, ALK AND CREAon 09-09-2022 Albumin [Mass/Vol] 4.4 g/dL Normal (3.5 - 5.0) [facility] Comment on above: Order Comment: FACIL ITY: [facility] [id number] Performed By: #### C BC/2A, MSEP, ANAFX, ACAX3, C3-C4, ESRCRP, TSHFX, VD25, CCP, RHF, URCA, HBSAG, HCV #### [facility] [address] [place] [address] [facility], [id number] ALK PHOS 102 U/L Normal (38 - 126) [facility] Comment on above: Order Comment: [facility] [id number] Performed By: #### C BC/2A, MSEP, ANAFX, ACAX3, C3-C4, ESRCRP, TSHFX, VD25, CCP, RHF, URCA, HBSAG, HCV #### [facility] [address] [place], [place] [address] [facility], [id number] ALT [Catalytic activity/Vol] 26 U/L Normal (1 - 45) [facility] Comment on above: Order Comment: [facility] [id number] Performed By: #### C BC/2A, MSEP, ANAFX, ACAX3, C3-C4, ESRCRP, TSHFX, VD25, CCP, RHF, URCA, HBSAG, HCV #### [facility] [address] [facility], [id number] AST [Catalytic activity/Vol] 24 U/L Normal (15 - 46) [facility] Comment on above: Order Comment: [facility] [id number] Performed By: #### C BC/2A, MSEP, ANAFX, ACAX3, C3-C4, ESRCRP, TSHFX, VD25, CCP, RHF, URCA, HBSAG, HCV #### [facility] [address] [facility], [id number] Creatinine [Mass/Vol] 0.56 mg/dL Low (0.66 - 1.25) [facility] Comment on above: Order Comment: [facility] [id number] Performed By: #### C BC/2A, MSEP, ANAFX, ACAX3, C3-C4, ESRCRP, TSHFX, VD25, CCP, RHF, URCA, HBSAG, HCV #### [facility] [address] [facility], [id number] GFR- AMER 176.6 ML/M1.7 High (60.0 - 161.8) [facility] Comment on above: Order Comment: [facility] [id number] Performed By: #### C BC/2A, MSEP, ANAFX, ACAX3, C3-C4, ESRCRP, TSHFX, VD25, CCP, RHF, URCA, HBSAG, HCV #### [facility] [address] [facility], [id number] GFR-NON AFRIC-AMER 146.0 ML/M1.7 High (60.0 - 133.8) [facility] Comment on above: Order Comment: [facility] [id number] Performed By: #### C BC/2A, MSEP, ANAFX, ACAX3, C3-C4, ESRCRP, TSHFX, VD25, CCP, RHF, URCA, HBSAG, HCV #### [facility] [address] [facility], [address] Hematocrit (Bld) [Volume fraction] 42.5 % Normal (42.0 - 52.0) [facility] Comment on above: Order Comment: [facility] [id number] Performed By: #### C BC/2A, MSEP, ANAFX, ACAX3, C3-C4, ESRCRP, TSHFX, VD25, CCP, RHF, URCA, HBSAG, HCV #### [facility] [address] [facility], [address] Hemoglobin (Bld) [Mass/Vol] 14.1 g/dL Normal (14.0 - 18.0) [facility] Comment on above: Order Comment: [facility] [id number] Performed By: #### C BC/2A, MSEP, ANAFX, ACAX3, C3-C4, ESRCRP, TSHFX, VD25, CCP, RHF, URCA, HBSAG, HCV #### [facility] [address] [facility], [address] MCH (RBC) [Entitic mass] 29.3 pg Normal (27.0 - 33.0) [facility] Comment on above: Order Comment: [facility] [id number] Performed By: #### C BC/2A, MSEP, ANAFX, ACAX3, C3-C4, ESRCRP, TSHFX, VD25, CCP, RHF, URCA, HBSAG, HCV #### [facility] [address] [facility], [address] MCHC (RBC) [Mass/Vol] 33.2 g/dL Normal (30.0 - 37.0) [facility] Comment on above: Order Comment: [facility] [id number] Performed By: #### C BC/2A, MSEP, ANAFX, ACAX3, C3-C4, ESRCRP, TSHFX, VD25, CCP, RHF, URCA, HBSAG, HCV #### [facility] [address] [facility], [address] MCV (RBC) [Entitic vol] 88.2 fL Normal (80.0 - 94.0) [facility] Comment on above: Order Comment: [facility] [id number] Performed By: #### C BC/2A, MSEP, ANAFX, ACAX3, C3-C4, ESRCRP, TSHFX, VD25, CCP, RHF, URCA, HBSAG, HCV #### [facility] [address] [facility], [address] PLT 278 x10^3ul Normal (130 - 400) [facility] Comment on above: Order Comment: [facility]: [facility] [id number] Performed By: #### C BC/2A, MSEP, ANAFX, ACAX3, C3-C4, ESRCRP, TSHFX, VD25, CCP, RHF, URCA, HBSAG, HCV #### [facility] [address] [facility], [address] RBC 4.82 x10^6ul Normal (4.70 - 6.10) [facility] Comment on above: Order Comment: [facility] [id number] Performed By: #### C BC/2A, MSEP, ANAFX, ACAX3, C3-C4, ESRCRP, TSHFX, VD25, CCP, RHF, URCA, HBSAG, HCV #### [facility] [address] [facility], [address] WBC 7.43 x10^3ul Normal (3.80 - 10.60) [facility] Comment on above: Order Comment: [facility] [id number] Performed By: #### C BC/2A, MSEP, ANAFX, ACAX3, C3-C4, ESRCRP, TSHFX, VD25, CCP, RHF, URCA, HBSAG, HCV #### [facility] [address] [facility], [id number] HEP B RICARDO AGon 09-09-2022 HEP B RICARDO AG Negative Normal (NEG - NEG) [facility] Comment on above: Performed By: #### C BC/2A, MSEP, ANAFX, ACAX3, C3-C4, ESRCRP, TSHFX, VD25, CCP, RHF, URCA, HBSAG, HCV #### [facility] [address] [facility], [id number] HEP C ANTIBODYon 09-09-2022 HEPATITIS C ANTIBODY Negative Normal (NEG - NEG) [facility] Comment on above: Performed By: #### C BC/2A, MSEP, ANAFX, ACAX3, C3-C4, ESRCRP, TSHFX, VD25, CCP, RHF, URCA, HBSAG, HCV #### [facility] [address] [facility], [id number] RF FACTORon 09-09-2022 RF FACTOR 26 IU/ML High (0 - 12) [facility] Comment on above: Performed By: #### C BC/2A, MSEP, ANAFX, ACAX3, C3-C4, ESRCRP, TSHFX, VD25, CCP, RHF, URCA, HBSAG, HCV #### [facility] [address] [facility], [id number] SED RATE - CRPon 09-09-2022 CRP EXTENDED RANGE 7.36 MG/L High (0.00 - 3.20) [facility] Comment on above: Performed By: #### C BC/2A, MSEP, ANAFX, ACAX3, C3-C4, ESRCRP, TSHFX, VD25, CCP, RHF, URCA, HBSAG, HCV #### [facility] [address] [facility], [id number] SED RATE WEST. 49 MM/HR High (0 - 24) [facility] Comment on above: Performed By: #### C BC/2A, MSEP, ANAFX, ACAX3, C3-C4, ESRCRP, TSHFX, VD25, CCP, RHF, URCA, HBSAG, HCV #### [facility] [address] [facility], [address] SERUM ELECT(M-PROTIEN)on Albumin [Mass/Vol] 4.8 g/dL Normal (3.5 - 5.0) [facility] Comment on above: Performed By: #### C BC/2A, MSEP, ANAFX, ACAX3, C3-C4, ESRCRP, TSHFX, VD25, CCP, RHF, URCA, HBSAG, HCV #### [facility] [address] [facility], [address] Albumin/Globulin [Mass ratio] 1.7 {ratio} Normal (1.2 - 2.2) [facility] Comment on above: Performed By: #### C BC/2A, MSEP, ANAFX, ACAX3, C3-C4, ESRCRP, TSHFX, VD25, CCP, RHF, URCA, HBSAG, HCV #### [facility] [address] [facility], [address] ALPHA 1 0.2 G/DL Normal (0.1 - 0.3) [facility] Comment on above: Performed By: #### C BC/2A, MSEP, ANAFX, ACAX3, C3-C4, ESRCRP, TSHFX, VD25, CCP, RHF, URCA, HBSAG, HCV #### [facility] [address] [facility], [address] ALPHA 2 1.1 G/DL Normal (0.2 - 1.1) [facility] Comment on above: Performed By: #### C BC/2A, MSEP, ANAFX, ACAX3, C3-C4, ESRCRP, TSHFX, VD25, CCP, RHF, URCA, HBSAG, HCV #### [facility] [address] [facility], [address] BETA 0.9 G/DL Normal (0.6 - 1.1) [facility] Comment on above: Performed By: #### C BC/2A, MSEP, ANAFX, ACAX3, C3-C4, ESRCRP, TSHFX, VD25, CCP, RHF, URCA, HBSAG, HCV #### [facility] [address] [facility], [address] GAMMA 0.7 G/DL Normal (0.5 - 1.5) [facility] Comment on above: Performed By: #### C BC/2A, MSEP, ANAFX, ACAX3, C3-C4, ESRCRP, TSHFX, VD25, CCP, RHF, URCA, HBSAG, HCV #### [facility] [address] [facility], [address] Globulin (S) [Mass/Vol] 2.8 g/dL Normal (2.3 - 3.5) [facility] Comment on above: Performed By: #### C BC/2A, MSEP, ANAFX, ACAX3, C3-C4, ESRCRP, TSHFX, VD25, CCP, RHF, URCA, HBSAG, HCV #### [facility] [address] [facility], [address] Protein [Mass/Vol] 7.6 g/dL Normal (6.3 - 8.2) [facility] Comment on above: Performed By: #### C BC/2A, MSEP, ANAFX, ACAX3, C3-C4, ESRCRP, TSHFX, VD25, CCP, RHF, URCA, HBSAG, HCV #### [facility] [address] [facility], [address] Protein [Mass/Vol] 0.0 g/dL Normal (0.0 - 0.01) [facility] Comment on above: Result Comment: AN A PPARENT NORMAL SERUM ELECTROPHORETIC PATTERN. Performed By: #### C BC/2A, MSEP, ANAFX, ACAX3, C3-C4, ESRCRP, TSHFX, VD25, CCP, RHF, URCA, HBSAG, HCV #### [facility] [address] [facility], [id number] TSH WITH REFLEXon 09-09-2022 REFLEX T4, FREE NO Normal () [facility] Comment on above: Performed By: #### C BC/2A, MSEP, ANAFX, ACAX3, C3-C4, ESRCRP, TSHFX, VD25, CCP, RHF, URCA, HBSAG, HCV #### [facility] [address] [facility], [id number] TSH Qn 0.961 m[IU]/L Normal (0.470 - 4.680) [facility] Comment on above: Performed By: #### C BC/2A, MSEP, ANAFX, ACAX3, C3-C4, ESRCRP, TSHFX, VD25, CCP, RHF, URCA, HBSAG, HCV #### [facility] [address] [facility], [id number] URIC ACIDon 09-09-2022 Urate [Mass/Vol] 7.0 mg/dL Normal (3.5 - 8.5) [facility] Comment on above: Performed By: #### C BC/2A, MSEP, ANAFX, ACAX3, C3-C4, ESRCRP, TSHFX, VD25, CCP, RHF, URCA, HBSAG, HCV #### [facility] [address] [facility], [address] VITAMIN D, 25 HYDROXYon -0 VITAMIN D, 25 27.6 NG/ML Low (30.0 - 100.0) [facility] Comment on above: Result Comment: * * * VITAMIN D, 25 HYDROXY GENERAL GUIDELINE * * * DEFICIENCY = < OR = 20.0 NG/ML INSUFFICIENCY = 20.1 - 29.9 NG/ML SUFFICIENCY = 30.0 - 100.0 NG/ML TOXICITY = > 100.1 NG/ML Performed By: #### C BC/2A, MSEP, ANAFX, ACAX3, C3-C4, ESRCRP, TSHFX, VD25, CCP, RHF, URCA, HBSAG, HCV #### [facility] [address] [place], [address] US TUTU DOP LEG BILon 023 US [...] by: KEVIN STANLEY Date: 2022-09-06 16:39 Normal [facility] CT LUNG CANCER SCREENINGon 0 07-16-2022 CT [...] by: GIAN MELENDEZ Date: 2022-07-16 10:02 Normal [facility] FREE T3on 07-16-2022 FREE T3 2.97 pg/mlL Normal 2.18-3.98 [facility] Comment on above: Performed By: #### T OLIVIA, CRP #### [facility] [address] [address] [address] Wilmer Francis FREE T4on 07-16-2022 Free T4 [Mass/Vol] 1.15 ng/dL Normal 0.76-1.46 [facility] Comment on above: Performed By: #### T OLIVIA, CRP #### [facility] [address] [place] [address] Dr. Wilmer Francis LIPID PROFILEon 07-16-2022 CHOL-HDL RATIO NORM SEE BELOW Normal [facility] Comment on above: Result Comment: 3.3 - 4.4 LOW RISK 4.4 - 7.1 AVERAGE RISK 7.1 - 11.0 MODERATE RISK >11.0 HIGH RISK Performed By: #### B TUGGER OPERATOR #### [facility] [address] [place] [address] Dr. Wilmer Francis Cholesterol [Mass/Vol] 131 mg/dL Normal <=200 [facility] Comment on above: Performed By: #### B TUGGER OPERATOR #### [facility] [address] [place] [address] Dr. Wilmer Francis Cholesterol in HDL [Mass/Vol] 58 mg/dL Normal 40-60 [facility] Comment on above: Performed By: #### B TUGGER OPERATOR #### [facility] [address] [place] [address] Dr. Wilmer Francis Cholesterol in LDL [Mass/Vol] 57.2 mg/dL Normal [facility] Comment on above: Performed By: #### B TUGGER OPERATOR #### [facility] [address] [place] [address] Dr. Wilmer Francis Cholesterol.total/Cho lesterol in HDL [Mass ratio] 2.3 {ratio} Normal [facility] Comment on above: Performed By: #### B TUGGER OPERATOR #### [facility] [address] [address] [address] Wilmer Francis HDL NORMAL > or = 60 mg/dl - LOW CARDIOVASCULAR RISK <40 mg/dl - HIGH CARDIOVASCULAR RISK Normal [facility] Comment on above: Performed By: #### B TUGGER OPERATOR #### [facility] [address] [place] [address] Dr. Wilmer Francis LDL CALC NORMAL SEE BELOW Normal [facility] Comment on above: Result Comment: <100 mg/dl OPTIMAL 100 - 129 mg/dl NEAR OR ABOVE OPTIMAL 130 - 159 mg/dl BORDERLINE HIGH 160 - 189 mg/dl HIGH >190 mg/dl VERY HIGH Performed By: #### B TUGGER OPERATOR #### [facility] [address] [place] [address] Dr. Wilmer Francis Triglyceride [Mass/Vol] 79 mg/dL Normal <=150 [facility] Comment on above: Performed By: #### B TUGGER OPERATOR #### [facility] [address] [place] [address] Dr. Wilmer Francis VLDL CALC 15.8 mg/dL Normal [facility] Comment on above: Performed By: #### B TUGGER OPERATOR #### [facility] [address] [place] [address] Dr. Wilmer Francis PROF 14(COMP METB)on 023 Albumin [Mass/Vol] 3.2 g/dL Critically low 3.4-5.0 Th [facility] Comment on above: Performed By: #### B TUGGER OPERATOR #### [facility] [address] [place] [address] Dr. Wilmer Francis Albumin/Globulin [Mass ratio] 0.7 {ratio} Normal [facility] Comment on above: Performed By: #### B TUGGER OPERATOR #### [facility] [address] [place] [address] Dr. Wilmer Francis ALP [Catalytic activity/Vol] 75 U/L Normal 46-116 [facility] Comment on above: Performed By: #### B TUGGER OPERATOR #### [facility] [address] [place] [address] Dr. Wilmer Francis ALT [Catalytic activity/Vol] 23 U/L Normal 16-63 [facility] Comment on above: Performed By: #### B TUGGER OPERATOR #### [facility] [address] [place] [address] Dr. Wilmer Francis Anion gap [Moles/Vol] 11.7 mmol/L Normal Th [facility] Comment on above: Performed By: #### B TUGGER OPERATOR #### [facility] [address] [address] [address] Wilmer Francis AST [Catalytic activity/Vol] 16 U/L Normal 15-37 [facility] Comment on above: Performed By: #### B TUGGER OPERATOR #### [facility] [address] [place] [address] Dr. Wilmer Francis Bilirubin [Mass/Vol] 0.4 mg/dL Normal 0.2-1.0 [facility] Comment on above: Performed By: #### B TUGGER OPERATOR #### [facility] [address] [place] [address] Dr. Wilmer Francis Calcium [Mass/Vol] 9.5 mg/dL Normal 8.5-10.1 [facility] Comment on above: Performed By: #### B TUGGER OPERATOR #### [facility] [address] [place] [address] Dr. Wilmer Francis Chloride [Moles/Vol] 103 mmol/L Normal 98-107 [facility] Comment on above: Performed By: #### B TUGGER OPERATOR #### [facility] [address] [place] [address] Dr. Wilmer Francis CO2 [Moles/Vol] 31.8 mmol/L Normal 21.0-32.0 [facility] Comment on above: Performed By: #### B TUGGER OPERATOR #### [facility] [address] [place] [address] Dr. Wilmer Francis Creatinine [Mass/Vol] 0.80 mg/dL Normal 0.70-1.30 [facility] Comment on above: Performed By: #### B TUGGER OPERATOR #### [facility] [address] [place] [address] Dr. Wilmer Francis EGFR-AF MALAWIAN >60 Normal >=60 [facility] [facility] Comment on above: Performed By: #### B TUGGER OPERATOR #### [facility] [address] [address] [address] Wilmer Francis EGFR-NON AF MALAWIAN >60 Normal >=60 [facility] Comment on above: Performed By: #### B TUGGER OPERATOR #### [facility] [address] [address] [address] Wilmer Francis Globulin (S) [Mass/Vol] 4.4 g/dL Normal [facility] Comment on above: Performed By: #### B TUGGER OPERATOR #### [facility] [address] [address] [address] Wilmer Francis Glucose [Mass/Vol] 145 mg/dL Critically high 74-106 T [facility] Comment on above: Performed By: #### B TUGGER OPERATOR #### [facility] [address] [place] [address] Dr. Wilmer Francis Potassium [Moles/Vol] 4.5 mmol/L Normal 3.5-5.1 [facility] Comment on above: Performed By: #### B TUGGER OPERATOR #### [facility] [address] [place] [address] Dr. Wilmer Francis Protein [Mass/Vol] 7.6 g/dL Normal 6.4-8.2 [facility] Comment on above: Performed By: #### B TUGGER OPERATOR #### [facility] [address] [place] [address] Dr. Wilmer Francis Sodium [Moles/Vol] 142 mmol/L Normal 136-145 [facility] Comment on above: Performed By: #### B TUGGER OPERATOR #### [facility] [address] [place] [address] Dr. Wilmer Francis Urea nitrogen [Mass/Vol] 12.0 mg/dL Normal 7.0-18.0 [facility] Comment on above: Performed By: #### B TUGGER OPERATOR #### [facility] [address] [place] [address] Dr. Wilmer Francis Urea nitrogen/Creatinine [Mass ratio] 15.0 mg/mg Normal [facility] Comment on above: Performed By: #### B TUGGER OPERATOR #### [facility] [address] [address] [address] Wilmer Francis TSHon 07-16-2022 TSH 0.770 uIU/mL Normal 0.358-3.740 [facility] Comment on above: Performed By: #### T SH, CRP #### [facility] [address] [address] [address] Wilmer Francis CBC AUTO DIFFon 06-22-2022 BASO # 0.0 103/ul Normal 0.0-0.1 [facility] Comment on above: Performed By: #### S EDR #### [facility] [address] [place] [address] Dr. Wilmer Francis Basophils/100 WBC (Bld) 0.1 % Critically low 0.2-2.0 [facility] Comment on above: Performed By: #### S EDR #### [facility] [address] [place] [address] Dr. Wilmer Francis EO # 0.0 103/ul Normal 0.0-0.7 [facility] Comment on above: Performed By: #### S EDR #### [facility] [address] [place] [address] Dr. Wilmer Francis Eosinophils/100 WBC (Bld) 0.0 % Critically low 0.9-7.0 [facility] Comment on above: Performed By: #### S EDR #### [facility] [address] [place] [address] Dr. Wilmer Francis Erythrocyte distribution width (RBC) [Ratio] 12.7 % Normal 11.0-15.0 [facility] Comment on above: Performed By: #### S EDR #### [facility] [address] [place] [address] Dr. Wilmer Francis Hematocrit (Bld) [Volume fraction] 36.5 % Critically low 42.0-54.0 [facility] Comment on above: Performed By: #### S EDR #### [facility] [address] [place] [address] Dr. Wilmer Francis Hemoglobin (Bld) [Mass/Vol] 12.5 g/dL Critically low 14.0-18.0 [facility] Comment on above: Performed By: #### S EDR #### [facility] [address] [address] [address] Wilmer Francis IG # 0.08 10e3/ul Critically high 0.00-0.03 [facility] Comment on above: Performed By: #### S EDR #### [facility] [address] [address] [address] Wilmer Francis IG % 0.6 % Critically high 0.0-0.5 [facility] Comment on above: Performed By: #### S EDR #### [facility] [address] [address] [address] Wilmer Francis LYMPH # 0.8 103/ul Critically low 1.2-3.8 [facility] Comment on above: Performed By: #### S EDR #### [facility] [address] [place] [address] Dr. Wilmer Francis Lymphocytes/100 WBC (Bld) 5.9 % Critically low 20.5-60.0 [facility] Comment on above: Performed By: #### S EDR #### [facility] [address] [place] [address] Dr. Wilmer Francis MANUAL DIFF REQ NO Normal [facility] Comment on above: Performed By: #### S EDR #### [facility] [address] [address] [address] Wilmer Francis MCH (RBC) [Entitic mass] 30.5 pg Normal 25.9-34.0 [facility] Comment on above: Performed By: #### S EDR #### [facility] [address] [address] [address] Wilmer Francis MCHC (RBC) [Mass/Vol] 34.2 g/dL Normal 29.9-35.2 [facility] Comment on above: Performed By: #### S EDR #### [facility] [address] [place] [address] Dr. Wilmer Francis MCV (RBC) [Entitic vol] 89.0 fL Normal 80.0-94.0 [facility] Comment on above: Performed By: #### S EDR #### [facility] [address] [address] [address] Wilmer Francis MONO # 0.8 103/ul Normal 0.3-0.8 [facility] Comment on above: Performed By: #### S EDR #### [facility] [address] [address] [address] Wilmer Francis Monocytes/100 WBC (Bld) 6.0 % Normal 1.7-12.0 [facility] Comment on above: Performed By: #### S EDR #### [facility] [address] [place] [address] Dr. Wilmer Francis NEUT # 11.3 103/ul Critically high 1.4-6.5 [facility] Comment on above: Performed By: #### S EDR #### [facility] [address] [place] [address] Dr. Wilmer Francis Neutrophils/100 WBC (Bld) 87.4 % Critically high 43.0-75.0 [facility] Comment on above: Performed By: #### S EDR #### [facility] [address] [place] [address] Dr. Wilmer Francis Platelet mean volume (Bld) [Entitic vol] 9.1 fL Critically low 9.5-13.5 [facility] Comment on above: Performed By: #### S EDR #### [facility] [address] [place] [address] Dr. Wilmer Francis PLT 347 103/ul Normal 150-450 [facility] Comment on above: Performed By: #### S EDR #### [facility] [address] [id number] Wilmer Francis RBC 4.10 106/ul Critically low 4.70-6.10 [facility] Comment on above: Performed By: #### S EDR #### [facility] [address] [place] [address] Dr. Wilmer Francis WBC 13.0 103/ul Critically high 4.0-11.0 [facility] Comment on above: Performed By: #### S EDR #### [facility] [address] [address] [address] Wilmer Francis CRPon 06-22-2022 CRP 3.1 mg/dL Critically high <=1.0 [facility] Comment on above: Performed By: #### P RTELEC #### [facility] [address] [address] [address] Wilmer Francis PROF CHEM 8 (BAS METB)on Anion gap [Moles/Vol] 9.9 mmol/L Normal [facility] Comment on above: Performed By: #### T SH, CRP #### [facility] [address] [address] [address] Wilmer Francis Calcium [Mass/Vol] 9.7 mg/dL Normal 8.5-10.1 [facility] Comment on above: Performed By: #### T SH, CRP #### [facility] [address] [address] [address] Wilmer Francis Chloride [Moles/Vol] 97 mmol/L Critically low 98-107 [facility] Comment on above: Performed By: #### T SH, CRP #### [facility] [address] [address] [address] Wilmer Francis CO2 [Moles/Vol] 31.6 mmol/L Normal 21.0-32.0 [facility] Comment on above: Performed By: #### T SH, CRP #### [facility] [address] [address] [address] Wilmer Francis Creatinine [Mass/Vol] 0.91 mg/dL Normal 0.70-1.30 [facility] Comment on above: Performed By: #### T SH, CRP #### [facility] [address] [place] [address] Dr. Wilmer Francis EGFR-AF MALAWIAN >60 Normal >=60 [facility] Comment on above: Performed By: #### T SH, CRP #### [facility] [address] [address] [address] Wilmer Francis EGFR-NON AF MALAWIAN >60 Normal >=60 [facility] Comment on above: Performed By: #### T SH, CRP #### [facility] [address] [address] [address] Wilmer Francis Glucose [Mass/Vol] 222 mg/dL Critically high 74-106 [facility] Comment on above: Performed By: #### T SH, CRP #### [facility] [address] [address] [address] Wilmer Francis Potassium [Moles/Vol] 4.4 mmol/L Normal 3.5-5.1 [facility] Comment on above: Performed By: #### T SH, CRP #### [facility] [address] [place] [address] Dr. Wilmer Francis Sodium [Moles/Vol] 134 mmol/L Critically low 136-145 Th [facility] Comment on above: Performed By: #### T SH, CRP #### [facility] [address] [place] [address] Dr. Wilmer Francis Urea nitrogen [Mass/Vol] 19.0 mg/dL Critically high 7.0-18.0 [facility] Comment on above: Performed By: #### T SH, CRP #### [facility] [address] [place] [address] Dr. Wilmer Francis Urea nitrogen/Creatinine [Mass ratio] 20.9 mg/mg Normal [facility] Comment on above: Performed By: #### T SH, CRP #### [facility] [address] [place] [address] Dr. Wilmer Francis Anion gap [Moles/Vol] 9.5 mmol/L Normal [facility] Comment on above: Performed By: #### P RTELEC #### [facility] [address] [place] [address] Dr. Wilmer Francis Calcium [Mass/Vol] 9.4 mg/dL Normal 8.5-10.1 [facility] Comment on above: Performed By: #### P RTELEC #### [facility] [address] [place] [address] Dr. Wilmer Francis Chloride [Moles/Vol] 99 mmol/L Normal 98-107 [facility] Comment on above: Performed By: #### P RTELEC #### [facility] [address] [address] [address] Wilmer Francis CO2 [Moles/Vol] 30.4 mmol/L Normal 21.0-32.0 [facility] Comment on above: Performed By: #### P RTELEC #### [facility] [address] [address] [address] Wilmer Francis Creatinine [Mass/Vol] 0.91 mg/dL Normal 0.70-1.30 [facility] Comment on above: Performed By: #### P RTELEC #### [facility] [address] [place] [address] Dr. Wilmer Francis EGFR-AF MALAWIAN >60 Normal >=60 [facility] Comment on above: Performed By: #### P RTELEC #### [facility] [address] [place] [address] Dr. Wilmer Francis EGFR-NON AF MALAWIAN >60 Normal >=60 [facility] Comment on above: Performed By: #### P RTELEC #### [facility] [address] [address] [address] Wilmer Francis Glucose [Mass/Vol] 266 mg/dL Critically high 74-106 [facility] Comment on above: Performed By: #### P RTELEC #### [facility] [address] [place] [address] Dr. Wilmer Francis Potassium [Moles/Vol] 3.9 mmol/L Normal 3.5-5.1 [facility] Comment on above: Performed By: #### P RTELEC #### [facility] [address] [address] [address] Wilmer Francis Sodium [Moles/Vol] 135 mmol/L Critically low 136-145 Th [facility] Comment on above: Performed By: #### P RTELEC #### [facility] [address] [place] [address] Dr. Wilmer Francis Urea nitrogen [Mass/Vol] 21.0 mg/dL Critically high 7.0-18.0 [facility] Comment on above: Performed By: #### P RTELEC #### [facility] [address] [address] [address] Wilmer Francis Urea nitrogen/Creatinine [Mass ratio] 23.1 mg/mg Normal [facility] Comment on above: Performed By: #### P RTELEC #### [facility] [address] [address] [address] Wilmer Francis Anion gap [Moles/Vol] 10.0 mmol/L Normal [facility] Comment on above: Performed By: #### S EDR #### [facility] [address] [address] [address] Wilmer Francis Calcium [Mass/Vol] 9.4 mg/dL Normal 8.5-10.1 [facility] Comment on above: Performed By: #### S EDR #### [facility] [address] [address] [address] Wilmer Francis Chloride [Moles/Vol] 97 mmol/L Critically low 98-107 [facility] Comment on above: Performed By: #### S EDR #### [facility] [address] [address] [address] Wilmer Francis CO2 [Moles/Vol] 28.9 mmol/L Normal 21.0-32.0 [facility] Comment on above: Performed By: #### S EDR #### [facility] [address] [address] [address] Wilmer Francis Creatinine [Mass/Vol] 1.19 mg/dL Normal 0.70-1.30 [facility] Comment on above: Performed By: #### S EDR #### [facility] [address] [address] [address] Wilmer Francis EGFR-AF MALAWIAN >60 Normal >=60 [facility] Comment on above: Performed By: #### S EDR #### [facility] [address] [address] [address] Wilmer Francis EGFR-NON AF MALAWIAN >60 Normal >=60 [facility] Comment on above: Performed By: #### S EDR #### [facility] [address] [address] [address] Wilmre Francis Glucose [Mass/Vol] 343 mg/dL Critically high 74-106 T [facility] Comment on above: Performed By: #### S EDR #### [facility] [address] [address] [address] Wilmer Francis Potassium [Moles/Vol] 3.9 mmol/L Normal 3.5-5.1 [facility] Comment on above: Performed By: #### S EDR #### [facility] [address] [address] [address] Wilmer Francis Sodium [Moles/Vol] 132 mmol/L Critically low 136-145 Th [facility] Comment on above: Performed By: #### S EDR #### [facility] [address] [address] [address] Wilmer Francis Urea nitrogen [Mass/Vol] 24.0 mg/dL Critically high 7.0-18.0 [facility] Comment on above: Performed By: #### S EDR #### [facility] [address] [address] [address] Wilmer Francis Urea nitrogen/Creatinine [Mass ratio] 20.2 mg/mg Normal [facility] Comment on above: Performed By: #### S EDR #### [facility] [address] [address] [address] Wilmer Francis SED RATE [facility] 2021 SED RATE 74 mm/hr Critically high <=20 [facility] Comment on above: Performed By: #### T SH, CRP #### [facility] [address] [address] [address] Wilmer Francis JUICE by IFAon 06-21-2022 Antinuclear Antibodies, IFA Negative Normal [facility] Comment on above: Result Comment: Nega tive <1:80 Borderline 1:80 Positive >1:80 ICAP nomenclature: AC-0 For more information about Hep-2 cell patterns use ANApatterns.org, the official website for the International Consensus on Antinuclear Antibody (JUICE) Patterns (ICAP). Performed By: #### S EDR #### [facility] [address] [place] [address] Dr. Wilmer Francis CBC AUTO DIFFon 06-21-2022 BASO # 0.0 103/ul Normal 0.0-0.1 [facility] Comment on above: Performed By: #### R SV, INFLUAB #### [facility] [address] [place] [address] Dr. Wilmer Francis Basophils/100 WBC (Bld) 0.1 % Critically low 0.2-2.0 [facility] Comment on above: Performed By: #### R SV, INFLUAB #### [facility] [address] [place] [address] Dr. Wilmer Francis EO # 0.0 103/ul Normal 0.0-0.7 [facility] Comment on above: Performed By: #### R SV, INFLUAB #### [facility] [address] [place] [address] Dr. Wilmer Francis Eosinophils/100 WBC (Bld) 0.1 % Critically low 0.9-7.0 [facility] Comment on above: Performed By: #### R SV, INFLUAB #### [facility] [address] [place] [address] Dr. Wilmer Francis Erythrocyte distribution width (RBC) [Ratio] 12.5 % Normal 11.0-15.0 [facility] Comment on above: Performed By: #### R SV, INFLUAB #### [facility] [address] [place] [address] Dr. Wilmer Francis Hematocrit (Bld) [Volume fraction] 36.6 % Critically low 42.0-54.0 [facility] Comment on above: Performed By: #### R SV, INFLUAB #### [facility] [address] [place] [address] Dr. Wilmer Francis Hemoglobin (Bld) [Mass/Vol] 12.5 g/dL Critically low 14.0-18.0 [facility] Comment on above: Performed By: #### R SV, INFLUAB #### [facility] [address] [place] [address] Dr. Wilmer Francis IG # 0.13 10e3/ul Critically high 0.00-0.03 [facility] Comment on above: Performed By: #### R SV, INFLUAB #### [facility] [address] [place] [address] Dr. Wilmer Francis IG % 0.7 % Critically high 0.0-0.5 [facility] Comment on above: Performed By: #### R SV, INFLUAB #### [facility] [address] [place] [address] Dr. Wilmer Francis LYMPH # 0.6 103/ul Critically low 1.2-3.8 [facility] Comment on above: Performed By: #### R SV, INFLUAB #### [facility] [address] [place] [address] Dr. Wilmer Francis Lymphocytes/100 WBC (Bld) 3.3 % Critically low 20.5-60.0 [facility] Comment on above: Performed By: #### R SV, INFLUAB #### [facility] [address] [place] [address] Dr. Wilmer Francis MANUAL DIFF REQ NO Normal [facility] Comment on above: Performed By: #### R SV, INFLUAB #### [facility] [address] [place] [address] Dr. Wilmer Francis MCH (RBC) [Entitic mass] 30.6 pg Normal 25.9-34.0 [facility] Comment on above: Performed By: #### R SV, INFLUAB #### [facility] [address] [place] [address] Dr. Wilmer Francis MCHC (RBC) [Mass/Vol] 34.2 g/dL Normal 29.9-35.2 [facility] Comment on above: Performed By: #### R SV, INFLUAB #### [facility] [address] [place] [address] Dr. Wilmer Francis MCV (RBC) [Entitic vol] 89.5 fL Normal 80.0-94.0 [facility] Comment on above: Performed By: #### R SV, INFLUAB #### [facility] [address] [address] [address] Wilmer Francis MONO # 1.1 103/ul Critically high 0.3-0.8 [facility] Comment on above: Performed By: #### R SV, INFLUAB #### [facility] [address] [place] [address] Dr. Wilmer Francis Monocytes/100 WBC (Bld) 5.7 % Normal 1.7-12.0 [facility] Comment on above: Performed By: #### R SV, INFLUAB #### [facility] [address] [place] [address] Dr. Wilmer Francis NEUT # 17.3 103/ul Critically high 1.4-6.5 [facility] Comment on above: Performed By: #### R SV, INFLUAB #### [facility] [address] [place] [address] Dr. Wilmer Francis Neutrophils/100 WBC (Bld) 90.1 % Critically high 43.0-75.0 [facility] Comment on above: Performed By: #### R SV, INFLUAB #### [facility] [address] [place] [address] Dr. Wilmer Francis Platelet mean volume (Bld) [Entitic vol] 9.2 fL Critically low 9.5-13.5 [facility] Comment on above: Performed By: #### R SV, INFLUAB #### [facility] [address] [place] [address] Dr. Wilmer Francis PLT 318 103/ul Normal 150-450 [facility] Comment on above: Performed By: #### R SV, INFLUAB #### [facility] [address] [place] [address] Dr. Wilmer Francis RBC 4.09 106/ul Critically low 4.70-6.10 [facility] Comment on above: Performed By: #### R SV, INFLUAB #### [facility] [address] [place] [address] Dr. Wilmer Francis WBC 19.2 103/ul Critically high 4.0-11.0 [facility] Comment on above: Performed By: #### R SV, INFLUAB #### [facility] [address] [place] [address] Dr. Wilmer Francsi CRPon 06-21-2022 CRP 7.3 mg/dL Critically high <=1.0 [facility] Comment on above: Performed By: #### T SH, CRP #### [facility] [address] [place] [address] Dr. Wilmer Francis OSMOLALITYon 06-21-2022 Osmolality [Osmolality] 254 mosm/kg Critically low 280-301 [facility] Comment on above: Performed By: #### T SH, CRP #### [facility] [address] [place] [address] Dr. Wilmer Francis OSMOLALITY URINEon Osmolality, Urine 558 mOsmol/kg Normal [facility] Comment on above: Result Comment: 24 h r : 300 - 900 Random: 50 - 1400 After 12hr fluid restriction: >850 Performed By: #### B TUGGER OPERATOR #### [facility] [address] [place] [address] Dr. Wilmer Francis PROF CHEM 8 (BAS METB)on Anion gap [Moles/Vol] 10.6 mmol/L Normal [facility] Comment on above: Performed By: #### T SH, CRP #### [facility] [address] [place] [address] Dr. Wilmer Francis Calcium [Mass/Vol] 9.1 mg/dL Normal 8.5-10.1 [facility] Comment on above: Performed By: #### T SH, CRP #### [facility] [address] [place] [address] Dr. Wilmer Francis Chloride [Moles/Vol] 94 mmol/L Critically low 98-107 [facility] Comment on above: Performed By: #### T SH, CRP #### [facility] [address] [place] [address] Dr. Wilmer Francis CO2 [Moles/Vol] 28.5 mmol/L Normal 21.0-32.0 [facility] Comment on above: Performed By: #### T SH, CRP #### [facility] [address] [address] [address] Wilmer Francis Creatinine [Mass/Vol] 1.11 mg/dL Normal 0.70-1.30 [facility] Comment on above: Performed By: #### T SH, CRP #### [facility] [address] [address] [address] Wilmer Francis EGFR-AF MALAWIAN >60 Normal >=60 [facility] Comment on above: Performed By: #### T SH, CRP #### [facility] [address] [address] [address] Wilmer Francis EGFR-NON AF MALAWIAN >60 Normal >=60 [facility] Comment on above: Performed By: #### T SH, CRP #### [facility] [address] [address] [address] Wilmer Francis Glucose [Mass/Vol] 294 mg/dL Critically high 74-106 [facility] Comment on above: Performed By: #### T SH, CRP #### [facility] [address] [address] [address] Wilmer Francis Potassium [Moles/Vol] 4.1 mmol/L Normal 3.5-5.1 [facility] Comment on above: Performed By: #### T SH, CRP #### [facility] [address] [place] [address] Dr. Wilmer Francis Sodium [Moles/Vol] 129 mmol/L Critically low 136-145 Th [facility] Comment on above: Performed By: #### T SH, CRP #### [facility] [address] [place] [address] Dr. Wilmer Francis Urea nitrogen [Mass/Vol] 27.0 mg/dL Critically high 7.0-18.0 [facility] Comment on above: Performed By: #### T SH, CRP #### [facility] [address] [place] [address] Dr. Wilmer Francis Urea nitrogen/Creatinine [Mass ratio] 24.3 mg/mg Normal [facility] Comment on above: Performed By: #### T SH, CRP #### [facility] [address] [place] [address] Dr. Wilmer Francis Anion gap [Moles/Vol] 11.7 mmol/L Normal Th [facility] Comment on above: Performed By: #### B MP #### [facility] [address] [address] [address] Wilmer Francis Calcium [Mass/Vol] 8.7 mg/dL Normal 8.5-10.1 [facility] Comment on above: Performed By: #### B MP #### [facility] [address] [address] [address] Wilmer Francis Chloride [Moles/Vol] 93 mmol/L Critically low 98-107 [facility] Comment on above: Performed By: #### B MP #### [facility] [address] [place] [address] Dr. Wilmer Francis CO2 [Moles/Vol] 25.4 mmol/L Normal 21.0-32.0 [facility] Comment on above: Performed By: #### B MP #### [facility] [address] [place] [address] Dr. Wilmer Francis Creatinine [Mass/Vol] 1.37 mg/dL Critically high 0.70-1.30 [facility] Comment on above: Performed By: #### B MP #### [facility] [address] [place] [address] Dr. Wilmer Francis EGFR-AF MALAWIAN >60 Normal >=60 [facility] Comment on above: Performed By: #### B MP #### [facility] [address] [address] [address] Wilmer Francis EGFR-NON AF MALAWIAN 52 mL/min/1.73m2 Critically low >=60 [facility] Comment on above: Performed By: #### B MP #### [facility] [address] [place] [address] Dr. Wilmer Francis Glucose [Mass/Vol] 398 mg/dL Critically high 74-106 [facility] Comment on above: Performed By: #### B MP #### [facility] [address] [place] [address] Dr. Wilmer Francis Potassium [Moles/Vol] 4.1 mmol/L Normal 3.5-5.1 [facility] Comment on above: Performed By: #### B MP #### [facility] [address] [place] [address] Dr. Wilmer Francis Sodium [Moles/Vol] 126 mmol/L Critically low 136-145 Th [facility] Comment on above: Performed By: #### B MP #### [facility] [address] [place] [address] Dr. Wilmer Francis Urea nitrogen [Mass/Vol] 28.0 mg/dL Critically high 7.0-18.0 [facility] Comment on above: Performed By: #### B MP #### [facility] [address] [place] [address] Dr. Wilmer Francis Urea nitrogen/Creatinine [Mass ratio] 20.4 mg/mg Normal [facility] Comment on above: Performed By: #### B MP #### [facility] [address] [place] [address] Dr. Wilmer Francis [facility] 109 mm/hr Critically high <=20 [facility] Comment on above: Performed By: #### S EDR #### [facility] [address] [place] [address] Dr. Wilmer Francis CBC AUTO DIFFon 06-20-2022 BASO # 0.0 103/ul Normal 0.0-0.1 [facility] Comment on above: Performed By: #### T SH, CRP #### [facility] [address] [place] [address] Dr. Wilmer Francis Basophils/100 WBC (Bld) 0.1 % Critically low 0.2-2.0 [facility] Comment on above: Performed By: #### T SH, CRP #### [facility] [address] [place] [address] Dr. Wilmer Francis EO # 0.0 103/ul Normal 0.0-0.7 [facility] Comment on above: Performed By: #### T SH, CRP #### [facility] [address] [place] [address] Dr. Wilmer Francis Eosinophils/100 WBC (Bld) 0.0 % Critically low 0.9-7.0 [facility] Comment on above: Performed By: #### T SH, CRP #### [facility] [address] [place] [address] Dr. Wilmer Francis Erythrocyte distribution width (RBC) [Ratio] 12.2 % Normal 11.0-15.0 [facility] Comment on above: Performed By: #### T SH, CRP #### [facility] [address] [place] [address] Dr. Wilmer Francis Hematocrit (Bld) [Volume fraction] 37.3 % Critically low 42.0-54.0 [facility] Comment on above: Performed By: #### T SH, CRP #### [facility] [address] [place] [address] Dr. Wilmer Francis Hemoglobin (Bld) [Mass/Vol] 12.7 g/dL Critically low 14.0-18.0 [facility] Comment on above: Performed By: #### T SH, CRP #### [facility] [address] [place] [address] Dr. Wilmer Francis IG # 0.11 10e3/ul Critically high 0.00-0.03 [facility] Comment on above: Performed By: #### T SH, CRP #### [facility] [address] [place] [address] Dr. Wilmer Francis IG % 0.5 % Normal 0.0-0.5 [facility] Comment on above: Performed By: #### T SH, CRP #### [facility] [address] [place] [address] Dr. Wilmer Francis LYMPH # 0.9 103/ul Critically low 1.2-3.8 [facility] Comment on above: Performed By: #### T SH, CRP #### [facility] [address] [place] [address] Dr. Wilmer Francis Lymphocytes/100 WBC (Bld) 4.3 % Critically low 20.5-60.0 [facility] Comment on above: Performed By: #### T SH, CRP #### [facility] [address] [place] [address] Dr. Wilmer Francis MANUAL DIFF REQ NO Normal [facility] Comment on above: Performed By: #### T SH, CRP #### [facility] [address] [place] [address] Dr. Wilmer Francis MCH (RBC) [Entitic mass] 30.3 pg Normal 25.9-34.0 [facility] Comment on above: Performed By: #### T SH, CRP #### [facility] [address] [place] [address] Dr. Wilmer Francis MCHC (RBC) [Mass/Vol] 34.0 g/dL Normal 29.9-35.2 [facility] Comment on above: Performed By: #### T SH, CRP #### [facility] [address] [place] [address] Dr. Wilmer Francis MCV (RBC) [Entitic vol] 89.0 fL Normal 80.0-94.0 [facility] Comment on above: Performed By: #### T SH, CRP #### [facility] [address] [place] [address] Dr. Wilmer Francis MONO # 1.4 103/ul Critically high 0.3-0.8 [facility] Comment on above: Performed By: #### T SH, CRP #### [facility] [address] [place] [address] Dr. Wilmer Francis Monocytes/100 WBC (Bld) 6.2 % Normal 1.7-12.0 [facility] Comment on above: Performed By: #### T SH, CRP #### [facility] [address] [place] [address] Dr. Wilmer Francis NEUT # 19.6 103/ul Critically high 1.4-6.5 [facility] Comment on above: Performed By: #### T SH, CRP #### [facility] [address] [place] [address] Dr. Wilmer Francis Neutrophils/100 WBC (Bld) 88.9 % Critically high 43.0-75.0 [facility] Comment on above: Performed By: #### T SH, CRP #### [facility] [address] [address] [address] Wilmer Francis Platelet mean volume (Bld) [Entitic vol] 9.3 fL Critically low 9.5-13.5 [facility] Comment on above: Performed By: #### T SH, CRP #### [facility] [address] [address] [address] Wilmer Francis PLT 311 103/ul Normal 150-450 [facility] Comment on above: Performed By: #### T SH, CRP #### [facility] [address] [address] [address] Wilmer Francis RBC 4.19 106/ul Critically low 4.70-6.10 [facility] Comment on above: Performed By: #### T SH, CRP #### [facility] [address] [address] [address] Wilmer Francis WBC 22.0 103/ul Critically high 4.0-11.0 [facility] Comment on above: Performed By: #### T SH, CRP #### [facility] [address] [address] [address] Wilmer Francis CRPon 06-20-2022 CRP 16.1 mg/dL Critically high <=1.0 [facility] Comment on above: Performed By: #### S EDR #### [facility] [address] [address] [address] Wilmer Francis PROF CHEM 8 (BAS METB)on Anion gap [Moles/Vol] 14.0 mmol/L Normal [facility] Comment on above: Performed By: #### B TUGGER OPERATOR #### [facility] [address] [address] [address] Wilmer Francis Calcium [Mass/Vol] 9.0 mg/dL Normal 8.5-10.1 [facility] Comment on above: Performed By: #### B TUGGER OPERATOR #### [facility] [address] [address] [address] Wilmer Francis Chloride [Moles/Vol] 90 mmol/L Critically low 98-107 [facility] Comment on above: Performed By: #### B TUGGER OPERATOR #### [facility] [address] [address] [address] Wilmer Francis CO2 [Moles/Vol] 26.3 mmol/L Normal 21.0-32.0 [facility] Comment on above: Performed By: #### B TUGGER OPERATOR #### [facility] [address] [address] [address] Wilmer Francis Creatinine [Mass/Vol] 1.24 mg/dL Normal 0.70-1.30 [facility] Comment on above: Performed By: #### B TUGGER OPERATOR #### [facility] [address] [address] [address] Wilmer Francis EGFR-AF MALAWIAN >60 Normal >=60 [facility] Comment on above: Performed By: #### B TUGGER OPERATOR #### [facility] [address] [address] [address] Wilmer Francis EGFR-NON AF MALAWIAN 58 mL/min/1.73m2 Critically low >=60 [facility] Comment on above: Performed By: #### B TUGGER OPERATOR #### [facility] [address] [address] [address] Wilmer Francis Glucose [Mass/Vol] 274 mg/dL Critically high 74-106 T [facility] Comment on above: Performed By: #### B TUGGER OPERATOR #### [facility] [address] [address] [address] Wilmer Francis Potassium [Moles/Vol] 4.2 mmol/L Normal 3.5-5.1 [facility] Comment on above: Performed By: #### B TUGGER OPERATOR #### [facility] [address] [address] [address] Wilmer Francis Sodium [Moles/Vol] 126 mmol/L Critically low 136-145 Th [facility] Comment on above: Performed By: #### B TUGGER OPERATOR #### [facility] [address] [address] [address] Wilmre Francis Urea nitrogen [Mass/Vol] 20.0 mg/dL Critically high 7.0-18.0 [facility] Comment on above: Performed By: #### B TUGGER OPERATOR #### [facility] [address] [address] [address] Wilmer Francis Urea nitrogen/Creatinine [Mass ratio] 16.1 mg/mg Normal [facility] Comment on above: Performed By: #### B TUGGER OPERATOR #### [facility] [address] [address] [address] Wilmer Francis Anion gap [Moles/Vol] 9.4 mmol/L Normal [facility] Comment on above: Performed By: #### S EDR #### [facility] [address] [address] [address] Wilmer Francis Calcium [Mass/Vol] 8.9 mg/dL Normal 8.5-10.1 [facility] Comment on above: Performed By: #### S EDR #### [facility] [address] [address] [address] Wilmer Francis Chloride [Moles/Vol] 90 mmol/L Critically low 98-107 [facility] Comment on above: Performed By: #### S EDR #### [facility] [address] [address] [address] Wilmer Francis CO2 [Moles/Vol] 28.8 mmol/L Normal 21.0-32.0 [facility] Comment on above: Performed By: #### S EDR #### [facility] [address] [address] [address] Wilmer Francis Creatinine [Mass/Vol] 0.93 mg/dL Normal 0.70-1.30 [facility] Comment on above: Performed By: #### S EDR #### [facility] [address] [address] [address] Wilmer Francis EGFR-AF MALAWIAN >60 Normal >=60 [facility] Comment on above: Performed By: #### S EDR #### [facility] [address] [address] [address] Wilmer Francis EGFR-NON AF MALAWIAN >60 Normal >=60 [facility] Comment on above: Performed By: #### S EDR #### [facility] [address] [address] [address] Wilmer Francis Glucose [Mass/Vol] 243 mg/dL Critically high 74-106 [facility] Comment on above: Performed By: #### S EDR #### [facility] [address] [address] [address] Wilmer Francis Potassium [Moles/Vol] 4.2 mmol/L Normal 3.5-5.1 [facility] Comment on above: Performed By: #### S EDR #### [facility] [address] [address] [address] Wilmer Francis Sodium [Moles/Vol] 124 mmol/L Critically low 136-145 [facility] Comment on above: Performed By: #### S EDR #### [facility] [address] [address] [address] Wilmer Francis Urea nitrogen [Mass/Vol] 21.0 mg/dL Critically high 7.0-18.0 [facility] Comment on above: Performed By: #### S EDR #### [facility] [address] [address] [address] Wilmer Francis Urea nitrogen/Creatinine [Mass ratio] 22.6 mg/mg Normal [facility] Comment on above: Performed By: #### S EDR #### [facility] [address] [address] [address] Wilmer Francis Anion gap [Moles/Vol] 10.8 mmol/L Normal [facility] Comment on above: Performed By: #### T SH, CRP #### [facility] [address] [address] [address] Wilmer Francis Calcium [Mass/Vol] 8.6 mg/dL Normal 8.5-10.1 [facility] Comment on above: Performed By: #### T SH, CRP #### [facility] [address] [address] [address] Wilmer Francis Chloride [Moles/Vol] 88 mmol/L Critically low 98-107 [facility] Comment on above: Performed By: #### T SH, CRP #### [facility] [address] [address] [address] Wilmer Francis CO2 [Moles/Vol] 27.3 mmol/L Normal 21.0-32.0 [facility] Comment on above: Performed By: #### T SH, CRP #### [facility] [address] [address] [address] Wlimer Francis Creatinine [Mass/Vol] 1.19 mg/dL Normal 0.70-1.30 [facility] Comment on above: Performed By: #### T SH, CRP #### [facility] [address] [address] [address] Wilmer Francis EGFR-AF MALAWIAN >60 Normal >=60 [facility] Comment on above: Performed By: #### T SH, CRP #### [facility] [address] [place] [address] Dr. Wilmer Francis EGFR-NON AF MALAWIAN >60 Normal >=60 [facility] Comment on above: Performed By: #### T SH, CRP #### [facility] [address] [address] [address] Wilmer Francis Glucose [Mass/Vol] 378 mg/dL Critically high 74-106 [facility] Comment on above: Performed By: #### T SH, CRP #### [facility] [address] [place] [address] Dr. Wilmer Francis Potassium [Moles/Vol] 4.1 mmol/L Normal 3.5-5.1 [facility] Comment on above: Performed By: #### T SH, CRP #### [facility] [address] [address] [address] Wilmer Francis Sodium [Moles/Vol] 122 mmol/L Critically low 136-145 Th [facility] Comment on above: Performed By: #### T SH, CRP #### [facility] [address] [address] [address] Wilmer Francis Urea nitrogen [Mass/Vol] 21.0 mg/dL Critically high 7.0-18.0 [facility] Comment on above: Performed By: #### T SH, CRP #### [facility] [address] [place] [address] Dr. Wilmer Francis Urea nitrogen/Creatinine [Mass ratio] 17.6 mg/mg Normal [facility] Comment on above: Performed By: #### T SH, CRP #### [facility] [address] [place] [address] Dr. Wilmer Francis PROTEIN ELECTROPHERESISon Albumin [Mass/Vol] 3.4 g/dL Normal 2.9-4.4 [facility] Comment on above: Performed By: #### P RTELEC #### [facility] [address] [place] [address] Dr. Wilmer Francis Albumin/Globulin [Mass ratio] 1.1 {ratio} Normal 0.7-1.7 [facility] Comment on above: Performed By: #### P RTELEC #### [facility] [address] [place] [address] Dr. Wilmer Francis Cvrhe-0-Iwjxdgmr 0.4 g/dL Normal 0.0-0.4 [facility] Comment on above: Performed By: #### P RTELEC #### [facility] [address] [place] [address] Dr. Wilmer Francis Xnuwc-6-Prmardib 1.0 g/dL Normal 0.4-1.0 [facility] Comment on above: Performed By: #### P RTELEC #### [facility] [address] [place] [address] Dr. Wilmer Francis Beta Globulin 1.0 g/dL Normal 0.7-1.3 [facility] Comment on above: Performed By: #### P RTELEC #### [facility] [address] [place] [address] Dr. Wilmer Francis Gamma Globulin 0.7 g/dL Normal 0.4-1.8 [facility] Comment on above: Performed By: #### P RTELEC #### [facility] [address] [place] [address] Dr. Wilmer Francis Globulin (S) [Mass/Vol] 3.1 g/dL Normal 2.2-3.9 [facility] Comment on above: Performed By: #### P RTELEC #### [facility] [address] [address] [address] Wilmer Francis M-Antoine Comment: Normal Not Observed [facility] Comment on above: Result Comment: SPE shows asymmetrical beta. Performed By: #### P RTELEC #### [facility] [address] [address] [address] Wilmer Francis PDF . Normal [facility] Comment on above: Performed By: #### P RTELEC #### [facility] [address] [address] [address] Wilmer Francis Please note: Comment Normal [facility] Comment on above: Result Comment: Prot ein electrophoresis scan will follow via computer, mail, or chief of planning delivery. Performed By: #### P RTELEC #### [facility] [address] [place] [address] Dr. Wilmer Francis Protein [Mass/Vol] 6.5 g/dL Normal 6.0-8.5 [facility] Comment on above: Performed By: #### P RTELEC #### [facility] [address] [place] [address] Dr. Wilmer Francis RHEUMATOID FACTORon 06-20-20 22 RA Latex Turbid. 43.8 IU/mL Critically high <14.0 [facility] Comment on above: Performed By: #### T SH, CRP #### [facility] [address] [place] [address] Dr. Wilmer Francis [facility] mm/hr Critically high <=20 [facility] Comment on above: Performed By: #### B TUGGER OPERATOR #### [facility] [address] [place] [address] Dr. Wilmer Francis XR CHEST 2 Von [...] KEVIN STANLEY Date: 2022-06-20 12:34 Normal [facility] BNPon 06-19-2022 Natriuretic peptide B (Bld) [Mass/Vol] 246.0 pg/mL Normal <=900.0 [facility] Comment on above: Performed By: #### B TUGGER OPERATOR #### [facility] [address] [place] [address] Dr. Wilmer Francis CARDIAC BIPIN 3-6on 2 CK [Catalytic activity/Vol] 76 U/L Normal 39-308 [facility] Comment on above: Performed By: #### T SH, CRP #### [facility] [address] [place] [address] Dr. Wilmer Francis CK.MB [Mass/Vol] 2.18 ng/mL Normal <=3.60 [facility] Comment on above: Performed By: #### T SH, CRP #### [facility] [address] [place] [address] Dr. Wilmer Francis HSTROP 5.1 pg/mL Normal 4.0-76.1 [facility] Comment on above: Result Comment: CUT- OFF POINTS HAVE BEEN ESTABLISHED BASED ON THE FOURTH UNIVERSAL DEFINITIONS OF MYOCARDIAL INFARCTION. THE UPPER REFERENCE LIMIT (URL) OF TROPONIN, DEFINED THE 99TH PERCENTILE OF cTnI DISTRIBUTION IN A REFERENCE POPULATION, HAS BEEN CONFIRMED THE DECISION THRESHOLD FOR [place] DIAGNOSIS. Performed By: #### T SH, CRP #### [facility] [address] [place] [address] Dr. Wilmer Francis CK [Catalytic activity/Vol] 90 U/L Normal 39-308 [facility] Comment on above: Performed By: #### P RTELEC #### [facility] [address] [place] [address] Dr. Wilmer Francis CK.MB [Mass/Vol] 1.91 ng/mL Normal <=3.60 [facility] Comment on above: Performed By: #### P RTELEC #### [facility] [address] [place] [address] Dr. Wilmer Francis HSTROP 4.8 pg/mL Normal 4.0-76.1 [facility] Comment on above: Result Comment: CUT- OFF POINTS HAVE BEEN ESTABLISHED BASED ON THE FOURTH UNIVERSAL DEFINITIONS OF MYOCARDIAL INFARCTION. THE UPPER REFERENCE LIMIT (URL) OF TROPONIN, DEFINED THE 99TH PERCENTILE OF cTnI DISTRIBUTION IN A REFERENCE POPULATION, HAS BEEN CONFIRMED THE DECISION THRESHOLD FOR [place] DIAGNOSIS. Performed By: #### P RTELEC #### [facility] [address] [place] [address] Dr. Wilmer Francis CARDIAC BIPIN ADMITon 022 CK [Catalytic activity/Vol] 86 U/L Normal 39-308 [facility] Comment on above: Performed By: #### S EDR #### [facility] [address] [place] [address] Dr. Wilmer Francis CK.MB [Mass/Vol] 1.97 ng/mL Normal <=3.60 [facility] Comment on above: Performed By: #### S EDR #### [facility] [address] [place] [address] Dr. Wilmer Francis HSTROP 6.2 pg/mL Normal 4.0-76.1 [facility] Comment on above: Result Comment: CUT- OFF POINTS HAVE BEEN ESTABLISHED BASED ON THE FOURTH UNIVERSAL DEFINITIONS OF MYOCARDIAL INFARCTION. THE UPPER REFERENCE LIMIT (URL) OF TROPONIN, DEFINED THE 99TH PERCENTILE OF cTnI DISTRIBUTION IN A REFERENCE POPULATION, HAS BEEN CONFIRMED THE DECISION THRESHOLD FOR [place] DIAGNOSIS. Performed By: #### S EDR #### [facility] [address] [place] [address] Dr. Wilmer Francis CHANTE 59 ng/mL Normal 16-96 [facility] Comment on above: Performed By: #### S EDR #### [facility] [address] [place] [address] Dr. Wilmer Francis CBC AUTO DIFFon 06-19-2022 BASO # 0.0 103/ul Normal 0.0-0.1 [facility] Comment on above: Performed By: #### B TUGGER OPERATOR #### [facility] [address] [place] [address] Dr. Wilmer Francis Basophils/100 WBC (Bld) 0.1 % Critically low 0.2-2.0 [facility] Comment on above: Performed By: #### B TUGGER OPERATOR #### [facility] [address] [place] [address] Dr. Wilmer Francis EO # 0.0 103/ul Normal 0.0-0.7 [facility] Comment on above: Performed By: #### B TUGGER OPERATOR #### [facility] [facility] [address] [place] [address] Dr. Wilmer Francis Eosinophils/100 WBC (Bld) 0.0 % Critically low 0.9-7.0 [facility] Comment on above: Performed By: #### B TUGGER OPERATOR #### [facility] [address] [place] [address] Dr. Wilmer Francis Erythrocyte distribution width (RBC) [Ratio] 12.2 % Normal 11.0-15.0 [facility] Comment on above: Performed By: #### B TUGGER OPERATOR #### [facility] [address] [place] [address] Dr. Wilmer Francis Hematocrit (Bld) [Volume fraction] 38.3 % Critically low 42.0-54.0 [facility] Comment on above: Performed By: #### B TUGGER OPERATOR #### [facility] [address] [place] [address] Dr. Wilmer Francis Hemoglobin (Bld) [Mass/Vol] 13.6 g/dL Critically low 14.0-18.0 [facility] Comment on above: Performed By: #### B TUGGER OPERATOR #### [facility] [address] [place] [address] Dr. Wilmer Francis IG # 0.10 10e3/ul Critically high 0.00-0.03 [facility] Comment on above: Performed By: #### B TUGGER OPERATOR #### [facility] [address] [place] [address] Dr. Wilmer Francis IG % 0.7 % Critically high 0.0-0.5 [facility] Comment on above: Performed By: #### B TUGGER OPERATOR #### [facility] [address] [place] [address] Dr. Wilmer Francis LYMPH # 0.8 103/ul Critically low 1.2-3.8 [facility] Comment on above: Performed By: #### B TUGGER OPERATOR #### [facility] [address] [place] [address] Dr. Wilmer Francis Lymphocytes/100 WBC (Bld) 5.0 % Critically low 20.5-60.0 [facility] Comment on above: Performed By: #### B TUGGER OPERATOR #### [facility] [address] [place] [address] Dr. Wilmer Francis MANUAL DIFF REQ NO Normal [facility] Comment on above: Performed By: #### B TUGGER OPERATOR #### [facility] [address] [place] [address] Dr. Wilmer Francis MCH (RBC) [Entitic mass] 30.8 pg Normal 25.9-34.0 [facility] Comment on above: Performed By: #### B TUGGER OPERATOR #### [facility] [address] [place] [address] Dr. Wilmer Francis MCHC (RBC) [Mass/Vol] 35.5 g/dL Critically high 29.9-35.2 [facility] Comment on above: Performed By: #### B TUGGER OPERATOR #### [facility] [address] [place] [address] Dr. Wilmer Francis MCV (RBC) [Entitic vol] 86.8 fL Normal 80.0-94.0 [facility] Comment on above: Performed By: #### B TUGGER OPERATOR #### [facility] [address] [place] [address] Dr. Wilmer Francis MONO # 0.7 103/ul Normal 0.3-0.8 [facility] Comment on above: Performed By: #### B TUGGER OPERATOR #### [facility] [address] [place] [address] Dr. Wilmer Francis Monocytes/100 WBC (Bld) 4.2 % Normal 1.7-12.0 [facility] Comment on above: Performed By: #### B TUGGER OPERATOR #### [facility] [address] [place] [address] Dr. Wilmer Francis NEUT # 13.8 103/ul Critically high 1.4-6.5 [facility] Comment on above: Performed By: #### B TUGGER OPERATOR #### [facility] [address] [address] [address] Wilmer Francis Neutrophils/100 WBC (Bld) 90.0 % Critically high 43.0-75.0 [facility] Comment on above: Performed By: #### B TUGGER OPERATOR #### [facility] [address] [place] [address] Dr. Wilmer Francis Platelet mean volume (Bld) [Entitic vol] 9.0 fL Critically low 9.5-13.5 [facility] Comment on above: Performed By: #### B TUGGER OPERATOR #### [facility] [address] [place] [address] Dr. Wilmer Francis PLT 298 103/ul Normal 150-450 [facility] Comment on above: Performed By: #### B TUGGER OPERATOR #### [facility] [address] [place] [address] Dr. Wilmer Francis RBC 4.41 106/ul Critically low 4.70-6.10 [facility] Comment on above: Performed By: #### B TUGGER OPERATOR #### [facility] [address] [place] [address] Dr. Wilmer Francis WBC 15.3 103/ul Critically high 4.0-11.0 [facility] Comment on above: Performed By: #### B TUGGER OPERATOR #### [facility] [address] [place] [address] Dr. Wilmer Francis CBC W MANUAL DIFFon 06-19-20 22 ATYPICAL LYMPH # Normal [facility] Comment on above: Performed By: #### S EDR #### [facility] [address] [place] [address] Dr. Wilmer Francis ATYPICAL LYMPH % Normal [facility] Comment on above: Performed By: #### S EDR #### [facility] [address] [place] [address] Dr. Wilmer Francis BAND # 0.0 103/ul Normal 0.0-0.3 [facility] Comment on above: Performed By: #### S EDR #### [facility] [address] [place] [address] Dr. Wilmer Francis BAND % 0 % Normal 0-5 [facility] Comment on above: Performed By: #### S EDR #### [facility] [address] [place] [address] Dr. Wilmer Francis BASOM # 0.00 103/ul Normal 0.00-0.10 [facility] Comment on above: Performed By: #### S EDR #### [facility] [address] [place] [address] Dr. Wilmer Francis BASOM % 0.0 % Critically low 0.2-2.0 [facility] Comment on above: Performed By: #### S EDR #### [facility] [address] [place] [address] Dr. Wilmer Francis BLAST # Normal [facility] Comment on above: Performed By: #### S EDR #### [facility] [address] [place] [address] Dr. Wilmer Francis BLAST % Normal [facility] Comment on above: Performed By: #### S EDR #### [facility] [address] [place] [address] Dr. Wilmer Francis CORRECTED WBC Normal 4.0-11.0 [facility] Comment on above: Performed By: #### S EDR #### [facility] [address] [place] [address] Dr. Wilmer Francis EOS # 0.15 103/ul Normal 0.00-0.70 [facility] Comment on above: Performed By: #### S EDR #### [facility] [address] [place] [address] Dr. Wilmer Francis EOS% 1.0 % Normal 0.9-7.0 [facility] Comment on above: Performed By: #### S EDR #### [facility] [address] [place] [address] Dr. Wilmer Francis HCT 38.7 % Critically low 42.0-54.0 [facility] Comment on above: Performed By: #### S EDR #### [facility] [address] [address] [address] Wilmer Francis HGB 13.8 g/dl Critically low 14.0-18.0 [facility] Comment on above: Performed By: #### S EDR #### [facility] [address] [address] [address] Wilmer Francis LYMPHM # 1.62 103/ul Normal 1.20-3.80 [facility] Comment on above: Performed By: #### S EDR #### [facility] [address] [address] [address] Wilmer Francis LYMPHM% 11.0 % Critically low 20.5-60.0 [facility] Comment on above: Performed By: #### S EDR #### [facility] [address] [place] [address] Dr. Wilmer Francis MCH 30.5 pg Normal 25.9-34.0 [facility] Comment on above: Performed By: #### S EDR #### [facility] [address] [address] [address] Wilmer Francis MCHC 35.7 g/dl Critically high 29.9-35.2 [facility] Comment on above: Performed By: #### S EDR #### [facility] [address] [place] [address] Dr. Wilmer Francis MCV 85.4 fL Normal 80.0-94.0 [facility] Comment on above: Performed By: #### S EDR #### [facility] [address] [place] [address] Dr. Wilmer Francis METAMYELOCYTE # Normal [facility] Comment on above: Performed By: #### S EDR #### [facility] [address] [address] [address] Wilmer Francis METAMYELOCYTE % Normal [facility] Comment on above: Performed By: #### S EDR #### [facility] [address] [address] [address] Wilmer Francis MONOM# 1.18 103/ul Critically high 0.30-0.80 [facility] Comment on above: Performed By: #### S EDR #### [facility] [address] [address] [address] Wilmer Francis MONOM% 8.0 % Normal 1.7-12.0 [facility] Comment on above: Performed By: #### S EDR #### [facility] [address] [address] [address] Wilmer Francis MPV 8.8 fL Critically low 9.5-13.5 [facility] Comment on above: Performed By: #### S EDR #### [facility] [address] [address] [address] Wilmer Francis MYELOCYTE # Normal [facility] Comment on above: Performed By: #### S EDR #### [facility] [address] [address] [address] Wilmer Francis MYELOCYTE % Normal [facility] Comment on above: Performed By: #### S EDR #### [facility] [address] [address] [address] Wilmer Francis NRBC Normal [facility] Comment on above: Performed By: #### S EDR #### [facility] [address] [address] [address] Wilmer Francis PLT 302 103/ul Normal 150-450 [facility] Comment on above: Performed By: #### S EDR #### [facility] [address] [address] [address] Wilmer Francis RBC 4.53 106/ul Critically low 4.70-6.10 [facility] Comment on above: Performed By: #### S EDR #### [facility] [address] [address] [address] Wilmer Francis RDW 12.1 % Normal 11.0-15.0 [facility] Comment on above: Performed By: #### S EDR #### [facility] [address] [address] [address] Wilmer Francis SEG # 11.76 103/ul Critically high 1.40-6.50 [facility] Comment on above: Performed By: #### S EDR #### [facility] [address] [place] [address] Dr. Wilmer Francis SEG % 80.0 % Critically high 43.0-75.0 [facility] Comment on above: Performed By: #### S EDR #### [facility] [address] [address] [address] Wilmer Francis WBC 14.7 103/ul Critically high 4.0-11.0 [facility] Comment on above: Performed By: #### S EDR #### [facility] [address] [place] [address] Dr. Wilmer Francis CREATININE URINEon URINE CREAT 179.57 mg/dL Normal 20.00-300.00 [facility] Comment on above: Performed By: #### S EDR #### [facility] [address] [place] [address] Dr. Wilmer Francis CRPon 06-19-2022 CRP 7.0 mg/dL Critically high <=1.0 [facility] Comment on above: Performed By: #### T SH, CRP #### [facility] [address] [place] [address] Dr. Wilmer Francis CRP 3.9 mg/dL Critically high <=1.0 [facility] Comment on above: Performed By: #### S EDR #### [facility] [address] [place] [address] Dr. Wilmer Francis [facility]06 SARS-CoV-2 (COVID-19) RNA ALAINA+probe Ql (Unsp spec) Not detected Normal NOT DETECTED [facility] Comment on above: Result Comment: When diagnostic [...] for this test is supported by the [place] of [employer] and Human Service's declaration that [...] Performed By: #### T SH, CRP #### [facility] [address] [place] [address] Dr. Wilmer Francis INFLUENZA A AND B AGon 06-19 INFLUENZA A AG Negative Normal NEGATIVE SEE COMMENT [facility] Comment on above: Performed By: #### R SV, INFLUAB #### [facility] [address] [place] [address] Dr. Wilmer Francis INFLUENZA B AG Negative Normal NEGATIVE SEE COMMENT [facility] Comment on above: Performed By: #### R SV, INFLUAB #### [facility] [address] [place] [address] Dr. Wilmer Francis INTERNAL CONTROLS Within Normal Limits Normal Within Normal Limits [facility] Comment on above: Performed By: #### R SV, INFLUAB #### [facility] [address] [place] [address] Dr. Wilmer Francis LACTATE/LACTIC ACIDon 2021 Lactate [Moles/Vol] 1.0 mmol/L Normal 0.4-1.9 [facility] Comment on above: Performed By: #### S EDR #### [facility] [address] [place] [address] Dr. Wilmer Francis Lactate [Moles/Vol] 0.9 mmol/L Normal 0.4-1.9 [facility] Comment on above: Performed By: #### B TUGGER OPERATOR #### [facility] [address] [place] [address] Dr. Wilmer Francis MICROALBUMIN, RAND URon 06-06 mALB 1.6 mg/L Normal <=30.0 [facility] Comment on above: Performed By: #### S EDR #### [facility] [address] [address] [address] Wilmer Francis PROF CHEM 8 (BAS METB)on Anion gap [Moles/Vol] 13.7 mmol/L Normal [facility] Comment on above: Performed By: #### B MP #### [facility] [address] [place] [address] Dr. Wilmer Francis Calcium [Mass/Vol] 8.9 mg/dL Normal 8.5-10.1 [facility] Comment on above: Performed By: #### B MP #### [facility] [address] [place] [address] Dr. Wilmer Francis Chloride [Moles/Vol] 87 mmol/L Critically low 98-107 [facility] Comment on above: Performed By: #### B MP #### [facility] [address] [place] [address] Dr. Wilmer Francis CO2 [Moles/Vol] 28.6 mmol/L Normal 21.0-32.0 [facility] Comment on above: Performed By: #### B MP #### [facility] [address] [place] [address] Dr. Wilmer Francis Creatinine [Mass/Vol] 1.15 mg/dL Normal 0.70-1.30 [facility] Comment on above: Performed By: #### B MP #### [facility] [address] [place] [address] Dr. Wilmer Francis EGFR-AF MALAWIAN >60 Normal >=60 [facility] Comment on above: Performed By: #### B MP #### [facility] [address] [place] [address] Dr. Wilmer Francis EGFR-NON AF MALAWIAN >60 Normal >=60 [facility] Comment on above: Performed By: #### B MP #### [facility] [address] [place] [address] Dr. Wilmer Francis Glucose [Mass/Vol] 295 mg/dL Critically high 74-106 [facility] Comment on above: Performed By: #### B MP #### [facility] [address] [place] [address] Dr. Wilmer Francis Potassium [Moles/Vol] 4.2 mmol/L Normal 3.5-5.1 [facility] Comment on above: Performed By: #### B MP #### [facility] [address] [address] [address] Wilmer Francis Sodium [Moles/Vol] 124 mmol/L Critically low 136-145 [facility] Comment on above: Performed By: #### B MP #### [facility] [address] [address] [address] Wilmer Francis Urea nitrogen [Mass/Vol] 14.0 mg/dL Normal 7.0-18.0 [facility] Comment on above: Performed By: #### B MP #### [facility] [address] [place] [address] Dr. Wilmer Francis Urea nitrogen/Creatinine [Mass ratio] 12.2 mg/mg Normal [facility] Comment on above: Performed By: #### B MP #### [facility] [address] [address] [address] Wilmer Francis Anion gap [Moles/Vol] 11.1 mmol/L Normal [facility] Comment on above: Performed By: #### T SH, CRP #### [facility] [address] [address] [address] Wilmer Francis Calcium [Mass/Vol] 9.0 mg/dL Normal 8.5-10.1 [facility] Comment on above: Performed By: #### T SH, CRP #### [facility] [address] [address] [address] Wilmer Francis Chloride [Moles/Vol] 86 mmol/L Critically low 98-107 [facility] Comment on above: Performed By: #### T SH, CRP #### [facility] [address] [address] [address] Wilmer Francis CO2 [Moles/Vol] 28.2 mmol/L Normal 21.0-32.0 [facility] Comment on above: Performed By: #### T SH, CRP #### [facility] [address] [place] [address] Dr. Wilmer Francis Creatinine [Mass/Vol] 0.77 mg/dL Normal 0.70-1.30 [facility] Comment on above: Performed By: #### T SH, CRP #### [facility] [address] [place] [address] Dr. Wilmer Francis EGFR-AF MALAWIAN >60 Normal >=60 [facility] Comment on above: Performed By: #### T SH, CRP #### [facility] [address] [address] [address] Wilmer Francis EGFR-NON AF MALAWIAN >60 Normal >=60 [facility] Comment on above: Performed By: #### T SH, CRP #### [facility] [address] [place] [address] Dr. Wilmer Francis Glucose [Mass/Vol] 183 mg/dL Critically high 74-106 [facility] Comment on above: Performed By: #### T SH, CRP #### [facility] [address] [place] [address] Dr. Wilmer Francis Potassium [Moles/Vol] 4.3 mmol/L Normal 3.5-5.1 [facility] Comment on above: Performed By: #### T SH, CRP #### [facility] [address] [place] [address] Dr. Wilmer Francis Sodium [Moles/Vol] 122 mmol/L Critically low 136-145 [facility] Comment on above: Performed By: #### T SH, CRP #### [facility] [address] [place] [address] Dr. Wilmer Francis Urea nitrogen [Mass/Vol] 10.0 mg/dL Normal 7.0-18.0 [facility] Comment on above: Performed By: #### T SH, CRP #### [facility] [address] [place] [address] Dr. Wilmer Francis Urea nitrogen/Creatinine [Mass ratio] 13.0 mg/mg Normal [facility] Comment on above: Performed By: #### T SH, CRP #### [facility] [address] [place] [address] Dr. Wilmer Francis Anion gap [Moles/Vol] 9.0 mmol/L Normal [facility] Comment on above: Performed By: #### S EDR #### [facility] [address] [address] [address] Wilmer Francis Calcium [Mass/Vol] 9.2 mg/dL Normal 8.5-10.1 [facility] Comment on above: Performed By: #### S EDR #### [facility] [address] [address] [address] Wilmer Francis Chloride [Moles/Vol] 86 mmol/L Critically low 98-107 [facility] Comment on above: Performed By: #### S EDR #### [facility] [address] [place] [address] Dr. Wilmer Francis CO2 [Moles/Vol] 29.0 mmol/L Normal 21.0-32.0 [facility] Comment on above: Performed By: #### S EDR #### [facility] [address] [address] [address] Wilmer Francis Creatinine [Mass/Vol] 0.72 mg/dL Normal 0.70-1.30 [facility] Comment on above: Performed By: #### S EDR #### [facility] [address] [address] [address] Wilmer Francis EGFR-AF MALAWIAN >60 Normal >=60 [facility] Comment on above: Performed By: #### S EDR #### [facility] [address] [address] [address] Wilmer Francis EGFR-NON AF MALAWIAN >60 Normal >=60 [facility] Comment on above: Performed By: #### S EDR #### [facility] [address] [address] [address] Wilmer Francis Glucose [Mass/Vol] 135 mg/dL Critically high 74-106 [facility] Comment on above: Performed By: #### S EDR #### [facility] [address] [address] [address] Wilmer Francis Potassium [Moles/Vol] 4.0 mmol/L Normal 3.5-5.1 [facility] Comment on above: Performed By: #### S EDR #### [facility] [address] [address] [address] Wilmer Francis Sodium [Moles/Vol] 120 mmol/L Critically low 136-145 Th [facility] Comment on above: Performed By: #### S EDR #### [facility] [address] [address] [address] Wilmer Francis Urea nitrogen [Mass/Vol] 9.0 mg/dL Normal 7.0-18.0 [facility] Comment on above: Performed By: #### S EDR #### [facility] [address] [address] [address] Wilmer Francis Urea nitrogen/Creatinine [Mass ratio] 12.5 mg/mg Normal [facility] Comment on above: Performed By: #### S EDR #### [facility] [address] [address] [address] Wilmer Francis RSVon 06-19-2022 RSV AG Negative Normal NEGATIVE [facility] Comment on above: Performed By: #### R SV, INFLUAB #### [facility] [address] [address] [address] Wilmer [facility] 77 mm/hr Critically high <=20 [facility] Comment on above: Performed By: #### S EDR #### [facility] [address] [address] [address] Wilmer Francis SED RATE 101 mm/hr Critically high <=20 [facility] Comment on above: Performed By: #### P RTELEC #### [facility] [address] [address] [address] Wilmer Francis SODIUM RANDOM URINEon 2021 Sodium (U) [Moles/Vol] 43 mmol/L Normal 30-90 [facility] Comment on above: Performed By: #### B TUGGER OPERATOR #### [facility] [address] [address] [address] Wilmer Francis TSHon 06-19-2022 TSH 0.127 uIU/mL Critically low 0.358-3.740 [facility] Comment on above: Performed By: #### T SH, CRP #### [facility] [address] [id number] Wilmer Francis URINE T PROTEIN CREAT RATIOo n 06-19-2022 Protein (U) [Mass/Vol] 26.2 mg/dL Critically high <=12.0 [facility] Comment on above: Performed By: #### S EDR #### [facility] [address] [address] [address] Wilmer Francis UR PROT CREAT RAT 0.15 Normal [facility] Comment on above: Performed By: #### S EDR #### [facility] [address] [address] [address] Wilmer Francis URINE CREAT 178.86 mg/dL Normal 20.00-300.00 [facility] Comment on above: Performed By: #### S EDR #### [facility] [address] [address] [address] Wilmer Francis XR CHEST 1 Von [...] KWAKU GEORGE Date: 2022-06-18 23:37 Normal [facility] COVID Quick Testingon 2021 Result Negative [employer] Other CBC Auto Differentialon -0 Basophils (Bld) [#/Vol] 0.05 10*3/uL [employer] [place] Basophils/100 WBC (Bld) 1 % 0 - 2 % [employer] [place], [place] Differential Type NOT REPORTED [employer] [place], [employer] Eosinophils (Bld) [#/Vol] 10*3/uL [employer] [employer] Eosinophils/100 WBC (Bld) 0 % Low 1 - 4 % [place] Erythrocyte distribution width (RBC) [Ratio] 12.7 % 11.8 - 14.4 % [place] Hematocrit (Bld) [Volume fraction] 49.2 % 40.7 - 50.3 % [place] Hemoglobin (Bld) [Mass/Vol] 16.3 g/dL 13 - 17 g/dL [place] Immature granulocytes (Bld) [#/Vol] 0 % 0 [place] Immature granulocytes (Bld) [#/Vol] 0.04 10*3/uL [place] Interpretation and review of laboratory results Abnormal [place] Lymphocytes (Bld) [#/Vol] 1.63 10*3/uL [place] Lymphocytes/100 WBC (Bld) 18 % Low 24 - 43 % [place] MCH (RBC) [Entitic mass] 30.4 pg 25.2 - 33.5 pg [place] MCHC (RBC) [Mass/Vol] 33.1 g/dL 28.4 - 34.8 g/dL [place] MCV (RBC) [Entitic vol] 91.8 fL 82.6 - 102.9 fL [place] Monocytes (Bld) [#/Vol] 0.73 10*3/uL [place] Monocytes/100 WBC (Bld) 8 % 3 - 12 % [place] Platelet mean volume (Bld) [Entitic vol] 9.8 fL 8.1 - 13.5 fL [place] Platelets (Bld) [#/Vol] NOT REPORTED [place] Platelets (Bld) [#/Vol] 295 10*3/uL [place] RBC (Bld) [#/Vol] 5.36 10*6/uL 4.21 - 5.7 7 m/uL [place] RBC morphology finding Nom (Bld) NOT REPORTED [place] Segmented neutrophils/100 WBC (Bld) 73 % High 36 - 65 % [place] Segs Absolute 6.51 [place] WBC (Bld) [#/Vol] 9.0 10*3/uL [place] WBC (Bld) [#/Vol] 0.0 10*3/uL 0.0 per 10 0 WBC [place] WBC Morphology NOT REPORTED [place] CBC with Diffon 06-07-2020 Abs. Basophil 0.05 k/uL Normal 0.00-0.20 [facility] Comment on above: Performed By: #### F T4, PSAS, LIPR #### [address] [address] Snow Remover: Jd Patricia MD #### CP, CDP, TSH #### [address] [place] [address] Snow Remover: Mohamud Zamudio MD Abs.Imm.Granulocyte 0.04 k/uL Normal 0.00-0.30 [facility] Comment on above: Performed By: #### F T4, PSAS, LIPR #### [address] [id number] Snow Remover: Jd Patricia MD #### CP, CDP, TSH #### [address] [place] [address] Snow Remover: Mohamud Zamudio MD Abs.Neutrophil (Seg) 6.51 k/uL Normal 1.50-8.10 [facility] Comment on above: Performed By: #### F T4, PSAS, LIPR #### [address] [id number] Snow Remover: Jd Patricia MD #### CP, CDP, TSH #### [address] [place] [address] Snow Remover: Mohamud Zamudio MD Basophils/100 WBC (Bld) 1 % Normal 0-2 [facility] Comment on above: Performed By: #### F T4, PSAS, LIPR #### [address] [phone] Snow Remover: Jd Patricia MD #### CP, CDP, TSH #### [address] [place] [address] Snow Remover: Mohamud Zamudio MD Eosinophils (Bld) [#/Vol] 10*3/uL Normal 0.00-0.44 [facility] Comment on above: Performed By: #### F T4, PSAS, LIPR #### [address] [address] Snow Remover: Jd Patricia MD #### CP, CDP, TSH #### [address] [place] [address] Snow Remover: Mohamud Zamudio MD Eosinophils/100 WBC (Bld) 0 % Low 1-4 [facility] Comment on above: Performed By: #### F T4, PSAS, LIPR #### [address] [id number] Snow Remover: Jd Patricia MD #### CP, CDP, TSH #### [address] [place] [address] Snow Remover: Mohamud Zamudio MD Erythrocyte distribution width (RBC) [Ratio] 12.7 % Normal 11.8-14.4 [facility] Comment on above: Performed By: #### F T4, PSAS, LIPR #### [address] [id number] Snow Remover: Jd Patricia MD #### CP, CDP, TSH #### [address] [place] [address] Snow Remover: Mohamud Zamudio MD Hematocrit (Bld) [Volume fraction] 49.2 % Normal 40.7-50.3 [facility] Comment on above: Performed By: #### F T4, PSAS, LIPR #### [address] [address] Snow Remover: Jd Patricia MD #### CP, CDP, TSH #### [facility] [address] [place] [address] [place]. [place], [place] [phone] Snow Remover: Mohamud Zamudio MD Hemoglobin (Bld) [Mass/Vol] 16.3 g/dL Normal 13.0-17.0 [facility] Comment on above: Performed By: #### F T4, PSAS, LIPR #### [address] [address] Snow Remover: Jd Patricia MD #### CP, CDP, TSH #### [facility] [address] [place] [address] [place] [phone] Snow Remover: Mohamud Zamudio MD Immature granulocytes (Bld) [#/Vol] 0 % Normal 0 [facility] Comment on above: Performed By: #### F T4, PSAS, LIPR #### [address] [address] Snow Remover: Jd Patricia MD #### CP, CDP, TSH #### [address] [place], [place] [phone] Snow Remover: Mohamud Zamudio MD Lymphocytes (Bld) [#/Vol] 1.63 10*3/uL Normal 1.10-3.70 [facility] Comment on above: Performed By: #### F T4, PSAS, LIPR #### [address] [address] Snow Remover: Jd Patricia MD #### CP, CDP, TSH #### [facility] [address] [place], [place] [phone] Snow Remover: Mohamud Zamudio MD Lymphocytes/100 WBC (Bld) 18 % Low 24-43 [facility] Comment on above: Performed By: #### F T4, PSAS, LIPR #### [address] [address] Snow Remover: Jd Patricia MD #### CP, CDP, TSH #### [address] [place], [place] [phone] Snow Remover: Mohamud Zamudio MD MCH (RBC) [Entitic mass] 30.4 pg Normal 25.2-33.5 [facility] Comment on above: Performed By: #### F T4, PSAS, LIPR #### [address] [address] Snow Remover: Jd Patricia MD #### CP, CDP, TSH #### [address] [place] [phone] Snow Remover: Mohamud Zamudio MD MCHC (RBC) [Mass/Vol] 33.1 g/dL Normal 28.4-34.8 [facility] Comment on above: Performed By: #### F T4, PSAS, LIPR #### [address] [address] Snow Remover: Jd Patricia MD #### CP, CDP, TSH #### [address] [place] [phone] Snow Remover: Mohamud Zamudio MD MCV (RBC) [Entitic vol] 91.8 fL Normal 82.6-102.9 [facility] Comment on above: Performed By: #### F T4, PSAS, LIPR #### [address] [phone] Snow Remover: Jd Patricia MD #### CP, CDP, TSH #### [address] [place], [place] [phone] Snow Remover: Mohamud Zamudio MD Monocytes (Bld) [#/Vol] 0.73 10*3/uL Normal 0.10-1.20 [facility] Comment on above: Performed By: #### F T4, PSAS, LIPR #### [address] [address] Snow Remover: Jd Patricia MD #### CP, CDP, TSH #### [facility] [address] [place] [phone] Snow Remover: Mohamud Zamudio MD Monocytes/100 WBC (Bld) 8 % Normal 3-12 [facility] Comment on above: Performed By: #### F T4, PSAS, LIPR #### [address] [address] Snow Remover: Jd Patricia MD #### CP, CDP, TSH #### [facility] [address] [place] [address] [place] [phone] Snow Remover: Mohamud Zamudio MD Neutrophil (Seg) 73 % High 36-65 [facility] Comment on above: Performed By: #### F T4, PSAS, LIPR #### [address] [address] Snow Remover: Jd Patricia MD #### CP, CDP, TSH #### [facility] [address] [place] [address] Dr[place] [phone] Snow Remover: Mohamud Zamudio MD NRBC Automated 0.0 per 100 WBC Normal 0.0 [facility] Comment on above: Performed By: #### F T4, PSAS, LIPR #### [address] [address] Snow Remover: Jd Patricia MD #### CP, CDP, TSH #### [facility] [address] [place], [place] [phone] Snow Remover: Mohamud Zamudio MD Platelet mean volume (Bld) [Entitic vol] 9.8 fL Normal 8.1-13.5 [facility] Comment on above: Performed By: #### F T4, PSAS, LIPR #### [facility] [address] [place] [address] Snow Remover: Jd Patricia MD #### CP, CDP, TSH #### [facility] [address] [place] [address] Dr. [place], [place] [phone] Snow Remover: Mohamud Zamudio MD Platelets (Bld) [#/Vol] 295 10*3/uL Normal 138-453 [facility] Comment on above: Performed By: #### F T4, PSAS, LIPR #### [address] [address] Snow Remover: Jd Patricia MD #### CP, CDP, TSH #### [address] [place] [phone] Snow Remover: Mohamud Zamudio MD RBC (Bld) [#/Vol] 5.36 10*6/uL Normal 4.21-5.77 [facility] Comment on above: Performed By: #### F T4, PSAS, LIPR #### [address] [address] Snow Remover: Jd Patricia MD #### CP, CDP, TSH #### [address] [place] [phone] Snow Remover: Mohamud Zamudio MD WBC (Bld) [#/Vol] 9.0 10*3/uL Normal 3.5-11.3 [facility] Comment on above: Performed By: #### F T4, PSAS, LIPR #### [address] [address] Snow Remover: Jd Patricia MD #### CP, CDP, TSH #### [address] [place] [phone] Snow Remover: Mohamud Zaumdio MD Auto Diff Performed NOT REPORTED Normal [facility] Comment on above: Performed By: #### F T4, PSAS, LIPR #### [address] [address] Snow Remover: Jd Patricia MD #### CP, CDP, TSH #### [facility] [address] [place] [address] Dr. [place], [place] [phone] Snow Remover: Mohamud Zamudio MD Platelets (Bld) [#/Vol] NOT REPORTED Normal [facility] Comment on above: Performed By: #### F T4, PSAS, LIPR #### [address] [address] Snow Remover: Jd Patricia MD #### CP, CDP, TSH #### [address] [place] [phone] Snow Remover: Mohamud Zamudio MD RBC morphology finding Nom (Bld) NOT REPORTED Normal [facility] Comment on above: Performed By: #### F T4, PSAS, LIPR #### [address] [address] Snow Remover: Jd Patricia MD #### CP, CDP, TSH #### [address] [place] [phone] Snow Remover: Mohamud Zamudio MD WBC Morphology NOT REPORTED Normal [facility] Comment on above: Performed By: #### F T4, PSAS, LIPR #### [address] [address] Snow Remover: Jd Patricia MD #### CP, CDP, TSH #### [address] [place] [phone] Snow Remover: Mohamud Zamudio MD CT ABDOMEN PELVIS W [...] Cristobal Jr., DO 06/07/20 Final result Normal [facility] CT ABDOMEN PELVIS W IV CONTR AST Additional Contrast? Oralon 06-07-2020 No acute intra-abdominal process. [facility], [place] EXAMINATION: CT OF THE ABDOMEN AND PELVIS [...] acute findings. Osseous structures demonstrate degenerative change. [facility] [place] Amol, Mhpn Incoming Radiant Results From [employer] - 06/07/2020 12:58 PM EST EXAMINATION: CT [...] degenerative change. IMPRESSION: No acute intra-abdominal process. [facility] [place] Comp Metabolic Profon 2019 (cont.) Normal [facility] Comment on above: Result Comment: Aver age GFR for 60-69 years old: 85 mL/min/1.73sq m Chronic Kidney Disease: <60 mL/min/1.73sq m Kidney failure: <15 mL/min/1.73sq m eGFR calculated using average adult body mass. Additional eGFR calculator available at: http://www.[employer]/multiple_crcl_2012.htm Performed By: #### F T4, PSAS, LIPR #### [place] [address] [place] [address] Snow Remover: Jd Patricia MD #### CP, CDP, TSH #### [address] [place], [place] [phone] Snow Remover: Mohamud Zamudio MD Albumin [Mass/Vol] 4.6 g/dL Normal 3.5-5.2 [facility] Comment on above: Performed By: #### F T4, PSAS, LIPR #### [address] [address] Snow Remover: Jd Patricia MD #### CP, CDP, TSH #### [facility] [address] [place] [address] Dr[place] [phone] Snow Remover: Mohamud Zamudio MD Albumin/Globulin [Mass ratio] 1.3 {ratio} Normal 1.0-2.5 [facility] Comment on above: Performed By: #### F T4, PSAS, LIPR #### [address] [address] Snow Remover: Jd Patricia MD #### CP, CDP, TSH #### [address] [place], [place] [phone] Snow Remover: Mohamud Zamudio MD Alkaline Phos 76 U/L Normal 40-129 [facility] Comment on above: Performed By: #### F T4, PSAS, LIPR #### [address] [address] Snow Remover: Jd Patricia MD #### CP, CDP, TSH #### [address] [place], [place] [phone] Snow Remover: Mohamud Zamudio MD ALT [Catalytic activity/Vol] 26 U/L Normal 5-41 [facility] Comment on above: Performed By: #### F T4, PSAS, LIPR #### [address] [place] [address] Snow Remover: Jd Patricia MD #### CP, CDP, TSH #### [facility] [address] [place], [place] [phone] Snow Remover: Mohamud Zamudio MD Anion gap [Moles/Vol] 7 mmol/L Low 9-17 [facility] Comment on above: Performed By: #### F T4, PSAS, LIPR #### [address] [address] Snow Remover: Jd Patricia MD #### CP, CDP, TSH #### [facility] [address] [place], [place] [phone] Snow Remover: Mohamud Zamudio MD AST [Catalytic activity/Vol] 27 U/L Normal <40 [facility] Comment on above: Performed By: #### F T4, PSAS, LIPR #### [address] [address] Snow Remover: Jd Patricia MD #### CP, CDP, TSH #### [facility] [address] [place], [place] 2117383 Snow Remover: Mohamud Zamudio MD Bilirubin Ql (U) 0.66 mg/dL Normal 0.3-1.2 [facility] Comment on above: Performed By: #### F T4, PSAS, LIPR #### [address] [place] [address] Snow Remover: Jd Patricia MD #### CP, CDP, TSH #### [facility] [address] [place], [place] [phone] Snow Remover: Mohamud Zamudio MD BUN/CRE Ratio 11 Normal 9-20 [facility] Comment on above: Performed By: #### F T4, PSAS, LIPR #### [address] [address] Snow Remover: Jd Patricia MD #### CP, CDP, TSH #### [address] [place], [place] 8976983 Snow Remover: Mohamud Zamudio MD Calcium [Mass/Vol] 9.7 mg/dL Normal 8.6-10.4 [facility] Comment on above: Performed By: #### F T4, PSAS, LIPR #### [address] [id number] Snow Remover: Jd Patricia MD #### CP, CDP, TSH #### [address] [place] [address] Snow Remover: Mohamud Zamudio MD Chloride [Moles/Vol] 100 mmol/L Normal 98-107 [facility] Comment on above: Performed By: #### F T4, PSAS, LIPR #### [address] [address] Snow Remover: Jd Patricia MD #### CP, CDP, TSH #### [address] [place] [address] Snow Remover: Mohamud Zamudio MD CO2 [Moles/Vol] 30 mmol/L Normal 20-31 [facility] Comment on above: Performed By: #### F T4, PSAS, LIPR #### [address] [address] Snow Remover: Jd Patricia MD #### CP, CDP, TSH #### [address] [place] [address] Snow Remover: Mohamud Zamudio MD Creatinine [Mass/Vol] 0.74 mg/dL Normal 0.70-1.20 [facility] Comment on above: Performed By: #### F T4, PSAS, LIPR #### [address] [address] Snow Remover: Jd Patricia MD #### CP, CDP, TSH #### [facility] [address] [place], [place] [phone] Snow Remover: Mohamud Zamudio MD GFR, Amer >60 Normal >60 [facility] Comment on above: Performed By: #### F T4, PSAS, LIPR #### [address] [address] Snow Remover: Jd Patricia MD #### CP, CDP, TSH #### [address] [place] [address] Snow Remover: Mohamud Zamudio MD GFR,non Amer >60 Normal >60 [facility] Comment on above: Performed By: #### F T4, PSAS, LIPR #### [address] [address] Snow Remover: Jd Patricia MD #### CP, CDP, TSH #### [address] [place] [address] Snow Remover: Mohamud Zamudio MD Glucose [Mass/Vol] 140 mg/dL High 70-99 [facility] Comment on above: Performed By: #### F T4, PSAS, LIPR #### [address] [address] Snow Remover: Jd Patricia MD #### CP, CDP, TSH #### [facility] [address] [place] [address] Snow Remover: Mohamud Zamudio MD Potassium [Moles/Vol] 4.3 mmol/L Normal 3.7-5.3 [facility] Comment on above: Performed By: #### F T4, PSAS, LIPR #### [address] [address] Snow Remover: Jd Patricia MD #### CP, CDP, TSH #### [facility] [address] [place] [address] Snow Remover: Mohamud Zamudio MD Protein [Mass/Vol] 8.2 g/dL Normal 6.4-8.3 [facility] Comment on above: Performed By: #### F T4, PSAS, LIPR #### [address] [address] Snow Remover: Jd Patricia MD #### CP, CDP, TSH #### [facility] [address] [place] [address] [place] [address] Snow Remover: Mohamud Zamudio MD Sodium [Moles/Vol] 137 mmol/L Normal 135-144 [facility] Comment on above: Performed By: #### F T4, PSAS, LIPR #### [address] [address] Snow Remover: Jd Patricia MD #### CP, CDP, TSH #### [address] [place] [address] Snow Remover: Mohamud Zamudio MD Staging: Normal [facility] Comment on above: Result Comment: Stag e 1: Some kidney damage normal GFR Stage 2: Mild kidney damage GFR 60-89 Stage 3: Moderate kidney damage GFR 30-59 Stage 4: Severe kidney damage GFR 15-29 Stage 5: Severe kidney damage GFR <15 ESRD - chronic treatment by dialysis or transplant Performed By: #### F T4, PSAS, LIPR #### [address] [place] [address] Snow Remover: Jd Patricia MD #### CP, CDP, TSH #### [facility] [address] [place] [address] Snow Remover: Mohamud Zamudio MD Urea nitrogen [Mass/Vol] 8 mg/dL Normal 8-23 [facility] Comment on above: Performed By: #### F T4, PSAS, LIPR #### [facility] [address] [place], [place] [phone] Snow Remover: Jd Patricia MD #### CP, CDP, TSH #### [facility] [address] [place] [address] Snow Remover: Mohamud Zamudio MD Comprehensive Metabolic Pane [facility] 06-07-2020 Albumin [Mass/Vol] 4.6 g/dL 3.5 - 5.2 g/dL [place] Albumin/Globulin [Mass ratio] 1.3 {ratio} [place] ALP [Catalytic activity/Vol] 76 U/L 40 - 129 U/L [place] ALT [Catalytic activity/Vol] 26 U/L 5 - 41 U/L [place] Anion gap [Moles/Vol] 7 mmol/L Low 9 - 17 mmol/L [place] AST [Catalytic activity/Vol] 27 U/L <40 [place] Bilirubin Ql (U) 0.66 mg/dL 0.3 - 1.2 mg/dL [place] Bun/Cre Ratio 11 [place] Calcium [Mass/Vol] 9.7 mg/dL 8.6 - 10. 4 mg/dL [place] Chloride [Moles/Vol] 100 mmol/L 98 - 10 7 mmol/L [place] CO2 [Moles/Vol] 30 mmol/L 20 - 31 mmol/L [place] Creatinine [Mass/Vol] 0.74 mg/dL 0.7 - 1.2 mg/dL [place] GFR >60 >60 mL/min [place] GFR Non- >60 >60 mL/min [place] Glucose [Mass/Vol] 140 mg/dL High 70 - 99 mg/dL [place] Interpretation and review of laboratory results Abnormal [place] Potassium [Moles/Vol] 4.3 mmol/L 3.7 - 5.3 mmol/L [place] Protein [Mass/Vol] 8.2 g/dL 6.4 - 8.3 g/dL [place] Sodium [Moles/Vol] 137 mmol/L 135 - 144 mmol/L [place] Urea nitrogen [Mass/Vol] 8 mg/dL 8 - 23 mg/dL [place] Lipid Panelon 06-07-2020 Cholesterol [Mass/Vol] 194 mg/dL <200 [place] Comment on above: Cholesterol Guidelines: <200 Desirable 200-240 Borderline >240 Undesirable Cholesterol in HDL [Mass/Vol] 54 mg/dL >40 [place] Comment on above: HDL Guidelines: <40 Undesirable 40-59 Borderline >59 Desirable Cholesterol in LDL [Mass/Vol] 124 mg/dL 0 - 130 mg/dL [place] Comment on above: LDL Guidelines: <100 Desirable 100-129 Near to/above Desirable 130-159 Borderline >159 Undesirable Direct (measured) LDL and calculated LDL are not interchangeable tests. Cholesterol in VLDL [Mass/Vol] NOT REPORTED 1 - 30 mg/dL [place] Cholesterol.total/Cho lesterol in HDL [Mass ratio] 3.6 {ratio} <5 [place] Triglyceride [Mass/Vol] 81 mg/dL <150 [place] Comment on above: Triglyceride Guidelines: <150 Desirable 150-199 Borderline 200-499 High >499 Very high Based on AHA Guidelines for fasting triglyceride, April 2012. Lipid Profileon 06-07-2020 Cholesterol [Mass/Vol] 194 mg/dL Normal <200 [facility] Comment on above: Result Comment: Cholesterol Guidelines: <200 Desirable 200-240 Borderline >240 Undesirable Performed By: #### F T4, PSAS, LIPR #### [facility] [address] [place] [address] Snow Remover: Jd Patricia MD #### CP, CDP, TSH #### [facility] [address] [place] [address] Snow Remover: Mohamud Zamudio MD Cholesterol in HDL [Mass/Vol] 54 mg/dL Normal >40 [facility] Comment on above: Result Comment: HDL Guidelines: <40 Undesirable 40-59 Borderline >59 Desirable Performed By: #### F T4, PSAS, LIPR #### [address] [address] Snow Remover: Jd Patricia MD #### CP, CDP, TSH #### [address] [place] [phone] Snow Remover: Mohamud Zamudio MD Cholesterol in LDL [Mass/Vol] 124 mg/dL Normal 0-130 [facility] Comment on above: Result Comment: LDL Guidelines: <100 Desirable 100-129 Near to/above Desirable 130-159 Borderline >159 Undesirable Direct (measured) LDL and calculated LDL are not interchangeable tests. Performed By: #### F T4, PSAS, LIPR #### [address] [address] Snow Remover: Jd Patricia MD #### CP, CDP, TSH #### [address] [place] [phone] Snow Remover: Mohamud Zamudio MD Cholesterol.total/Cho lesterol in HDL [Mass ratio] 3.6 {ratio} Normal <5 [facility] Comment on above: Performed By: #### F T4, PSAS, LIPR #### [address] [address] Snow Remover: Jd Patricia MD #### CP, CDP, TSH #### [facility] [address] [place] [address] [place] [phone] Snow Remover: Mohamud Zamudio MD Triglyceride [Mass/Vol] 81 mg/dL Normal <150 [facility] Comment on above: Result Comment: Triglyceride Guidelines: <150 Desirable 150-199 Borderline 200-499 High >499 Very high Based on AHA Guidelines for fasting triglyceride, April 2012. Performed By: #### F T4, PSAS, LIPR #### [address] [id number] Snow Remover: Jd Patricia MD #### CP, CDP, TSH #### [facility] [address] [place] [address] Snow Remover: Mohamud Zamudio MD Cholesterol in VLDL [Mass/Vol] NOT REPORTED Normal 1- [facility] Comment on above: Performed By: #### F T4, PSAS, LIPR #### [facility] [address] [place], [place] [id number] Snow Remover: Jd Patricia MD #### CP, CDP, TSH #### [facility] [address] [place] [address] Snow Remover: Mohamud Zamudio MD [facility] DIGITAL DIAGNOSTIC BILATERALon 06-07-2020 [facility] DIGITAL DIAGNOSTIC BILATERAL EXAMINATION: DIAGNOSTIC DIGITAL [...] James Samuel MD 06/07/20 Final result Normal [facility] Metabolic Panelon 06-07-2020 GFR/1.73 sq M predicted among non-blacks MDRD (S/P/Bld) [Vol rate/Area] [facility] [place] Comment on above: Average GFR for 60-6 9 years old: 85 mL/min/1.73sq m Chronic Kidney Disease: <60 mL/min/1.73sq m Kidney failure: <15 mL/min/1.73sq m eGFR calculated using average adult body mass. Additional eGFR calculator available at: http://www.[employer]/multiple_crcl_2012.htm Stage 1: Some kidney damage normal GFR [...] sent to the patient regarding the results. [facility] [place] EXAMINATION: DIAGNOSTIC DIGITAL BILATERAL BREASTS MAMMOGRAM WITH [...] enlarged or suspicious left axillary lymph nodes. [place] Amol, Mhpn Incoming Radiant Results From [employer] - 06/07/2020 12:14 PM EST EXAMINATION: DIAGNOSTIC [...] sent to the patient regarding the results. [place] PSA, Screeningon 06-07-2020 Prostatic Spec. Ag 0.47 ug/L Normal <4.1 [facility] Comment on above: Result Comment: The Graciela ECLIA assay is used. Results obtained with different assay methods cannot be used interchangeably. Performed By: #### F T4, PSAS, LIPR #### [facility] [address] [place] [address] Snow Remover: Jd Patricia MD #### CP, CDP, TSH #### [facility] [address] [place] [address] Snow Remover: Mohamud Zamudio MD T4, Freeon 06-07-2020 Thyroxine, Free 1.37 ng/dL 0.93 - 1.7 ng/dL [place] TSH without Reflexon 020 TSH Qn 0.70 m[IU]/L [place] Thyroid Stim. Horm.on 2019 TSH Qn 0.70 m[IU]/L Normal 0.30-5.00 [facility] Comment on above: Performed By: #### F T4, PSAS, LIPR #### [facility] [address] [place], [place] [id number] Snow Remover: Jd Patricia MD #### CP, CDP, TSH #### [facility] [address] [place] [address] Snow Remover: Mohamud Zamudio MD Thyroxine, Freeon 06-07-2020 Thyroxine, Free 1.37 ng/dL Normal 0.93-1.70 [facility] Comment on above: Performed By: #### F T4, PSAS, LIPR #### [facility] [address] [place], [place] [id number] Snow Remover: Jd Patricia MD #### CP, CDP, TSH #### [facility] [address] [place] [address] [place] [address] Snow Remover: Mohamud Zamudio MD US BREAST COMPLETE LEFTon [...] James Samuel MD 06/07/20 Final result Normal [facility] Vital Signs Date Time Vital Sign Value Performing Clinician Facility 07-14-2021 14:30-0500 Body height 170.18 cm Jazmin Ginty Other [facility] Other 07-14-2021 14:30-0500 Body mass index (BMI) [Ratio] 33.67 kg/m2 Jazmin Ginty Other [facility] Other 07-14-2021 14:30-0500 Body temperature 97.7 [degF] Jazmin Ginty Other [facility] Other 07-14-2021 14:30-0500 Body weight 97.52 kg Jazmin Ginty Other [facility] Other 07-14-2021 14:30-0500 Respiratory rate 16 /min Jazmin Ginty Other [facility] Other 07-14-2021 14:30-0500 SaO2% (BldA) [Mass fraction] 92 % Jazmin Ginty Other [facility] Other Encounters Encounter Date Encounter Type Care Provider Facility Start: 12-18-2022 End: 12-18-2022 ambulatory [facility] Start: 12-04-[address] JOE MUSA [...] 07-14-2021 End: 07-14-2021 ambulatory Jazmin Ginty Other [facility] Other Start: 07-14-2021 Office outpatient vi sit 15 minutes Jazmin Ginty [facility] Start: 06-07-2020 End: 06-10-2020 Patient encounter procedure JOE MUSA [facility] Start: 06-07-2020 End: 06-09-2020 Subsequent hospital visit by physician [facility] Lab Drawing Room [facility] Laboratory Comment on above: Arrived Breast lump Generalized abdomina l pain Lump in central port ion of left breast Lump or mass in [address] Procedures Date Procedure Procedure Detail Performing Clinician Start: 12-04-[address] JOE MUSA Comment on above: Performed By: #### B TUGGER OPERATOR #### [facility] [address] [address] [address] Wilmer Francis Start: 09-09-2022 Cyclic citrullinated peptide antibody Comment on above: Performed By: #### C BC/2A, MSEP, ANAFX, ACAX3, C3-C4, ESRCRP, TSHFX, VD25, CCP, RHF, URCA, HBSAG, HCV #### [facility] [address] [facility], [address] Start: 07-16-[address] JOE MUSA Comment on above: Performed By: #### T , CRP #### [facility] [address] [place] [address] Dr. Wilmer Francis Start: 06-07-2020 [object Object] [...] Author Start: 06-07-2025 Lipid panel Lipid screen [place], [place] Start: 03-07-2020 Influenza vaccination Flu vaccine (# 1) [place], [place] Start: 11-16-2005 Screening for malign ant neoplasm of colon Colon cancer screen colonoscopy [place], [place] Start: 11-16-2005 Shingles Vaccine (1 of 2) Shingles Vaccine (1 of 2) [place] Start: 1995 Lipid panel Lipid screen [place], [place] Start: 11-16-1974 DTaP/Tdap/Td vaccine (1 - Tdap) DTaP/Tdap/Td vaccine (1 - Tdap) [place] Start: 11-16-1970 HIV screening HIV screen [place], [place] Start: 1955 Hepatitis C screening Hepatitis C sc reen [place] Payers Date Payer Category Payer Private Health Insurance [id number] 1959 Medicare [id number] 2. [id number] 1959 Self-pay 1955 Unknown [id number] 2.16.8 [id number] 1955 Unknown [id number] 2.16.8 40.1.400561.3.579.2.173 1955 Unknown [id number] 2.16.8 40.1.050907.3.579.2.173 1955 Unknown [id number] 2.16.8 40.1.582558.3.579.2.173 1955 Unknown [id number] 2.16.8 40.1.112299.3.579.2.173 1955 Unknown [id number] 2.16.84 0.1.852399.3.579.2.593 1955 Unknown [id number] 2.16.84 0.1.482526.3.579.2.593 1955 Unknown [id number] 2.16.84 0.1.001522.3.579.2.593 1955 Unknown [id number] 2.16.84 0.1.332924.3.579.2.593 1955 Unknown [id number] 2.16.84 0.1.763737.3.579.2.593 1955 Unknown [id number] 2.16.84 0.1.888249.3.579.2.593 1955 Unknown [id number] 2.16.84 0.1.367744.3.579.2.593 1955 Unknown [id number] 2.16.84 0.1.764216.3.579.2.593 Unknown [id number] 2.16.84 0.1.240358.3.579.2.593 Social History Date Type Detail Facility Tobacco smoking status ORIS Unknown if ev er smoked [place], [place] Sex Assigned At Not on file [place] Exposure to SARS-CoV -2 (event) Not sure [place] Sex Assigned At Sex Assigned At Bir [facility] Other Progress note 12-18-2022 Note Date & Type Note Facility 12-18-2022 Note [place] Cardiology - [facility] Subjective Bipin Ulloa is a 67 [...] is no d (more content not included)... [facility] Evaluation note 07-14-2021 Note Date & [...] Patient care instructions given in writting by [facility] Care At Home document [facility] Other History general Narrative - Reported Note Date & Type Note Facility History general Narrative - Reported Type Medical History high blood pressure Surgical History cyst on head Hospitalization History pnemonia Hospitalization History stress related [facility] Other Reason for Referral Status Reason Specialty Diagnoses / Procedures Referred By Contact Referred To Contact Pending Review Radiology Diagnoses Breast lump Procedures US BREAST COMPLETE LEFT Joe Musa MD [facility] [place] [address] [address] Status Reason Specialty Diagnoses / Procedures Referred By Contact Referred To Contact Pending Review Radiology Diagnoses Generalized abdominal pain Procedures CT ABDOMEN PELVIS W IV CONTRAST Additional Contrast? Oral Joe Musa MD [facility] [place] [address] [address] Status Reason Specialty Diagnoses / Procedures Referre d By Contact Referred To Contact Closed Radiology Diagnoses Lump or mass in breast Procedures [facility] Joe Musa MD [address] [place] [address] Assessments Diagnosis Breast lump Lump or mass [...] Diagnoses Unspecified lump in unspecified breast Procedures [facility] BREAST COMP Joe Musa MD [address] [place] [address] [facility] Ultrasound [address] [place] [address] Status Reason Specialty Diagnoses / Procedures Referre d By Contact Referred To Contact Closed Radiology Diagnoses Generalized abdominal pain Procedures CT ABDOMEN PELVIS W CONTRAST Joe Musa MD [address] [place] [address] [facility] Ct Scan [address] [place], [place] [id number] Status Reason Specialty Diagnoses / Procedures Referred By Contact Referred To Contact Authorized Radiology Diagnoses Unspecified lump in unspecified breast Procedures US BREAST COMP Joe Musa MD [address] [place] [address] [facility] Ultrasound [address] [place], [place] [id number] Status Reason Specialty Diagnoses / Procedures Referre d By Contact Referred To Contact Closed Radiology Diagnoses Lump or mass in breast Procedures [facility] DIGITAL DIAGNOSTIC BILATERAL Joe Musa MD [address] [address] (unrecognized sect ion and content) No Status Records FoundNo Status Records FoundNo Status Records FoundNo Status Records Found INFORMATION SOURCE (unrecogn ized section and content) DATE CREATED AUTHOR 06/10/2020 [facility] DATE CREATED AUTHOR AUTHOR'S ORGANIZ ATION 12/13/2022 [facility] DATE CREATED AUTHOR AUTHOR'S ORGANIZ ATION 12/18/2022 [facility] DATE CREATED AUTHOR AUTHOR'S ORGANIZ ATION 08/14/2023 [facility] FOR RECORDS PERTAINING TO PATIENTS WHO [...] BE BASED ON THE PRIMARY CLINICAL RECORDS. [facility]. provides no warranty or guarantee of the accuracy or completeness of information in this document.
== END 2023-11-21 09:47 | disposition home or self-care (01) ==
LOC: CT 09:46
PROVIDERS: PCP Family Medicine; Visit Provider Internal Medicine
DX: R91.8 Other nonspecific abnormal finding of lung field (principal); Z12.2 Encounter for screening for malignant neoplasm of respiratory organs; Z87.891 Personal history of nicotine dependence
CPT/HCPCS: 71271

== ENCOUNTER 2024-01-23 07:39 | Outpatient (OUT) | payer MEDICARE, SELFPAY ==
--- NOTE | 2024-01-23 | PCN_ITS ---
CARDIAC STRESS TEST Requesting Physician: Procedure Date: 01/23/2024 This was a Lexiscan stress test with myocardial perfusion imaging, performed at the [facility] on 01/23/2024. Informed consent was obtained and an intravenous line was secured. Baseline ECG and vital signs were obtained. Lexiscan 0.4 mg was infused intravenously followed by administration of Cardiolite. The patient then went on to obtain myocardial perfusion imaging. Baseline heart rate was 70 BPM and maximum heart rate was 100 BPM. Baseline blood pressure was 140/82 and maximum blood pressure 140/82. Baseline ECG showed evidence of sinus rhythm without any ischemic changes. ECG following infusion of Lexiscan showed sinus rhythm without ischemic ECG changes and without arrhythmias. Final ECG was comparable to baseline. SUMMARY OF THE FINDINGS: 1. No evidence of ischemic ECG changes following infusion of Lexiscan. 2. Myocardial perfusion imaging will be reported separately. MTDD
--- OUTSIDE RECORDS SUMMARY | 2024-01-23 07:44 | XMS_ITS | CCD ---
Author Organization [facility] Care Team Providers Care Supervisor [employer] Name Role Phone Joe Musa Primary Care Provider [phone] MUSAJOE Referring Unavailable MUSA, JOE Primary Care Unavailable [...] Unavailable AL, DR GIAN Parikh Consulting Unavailable [facility] ., DARIN Consulting Unavailable JADEN, DR KEVIN Wayne Consulting Unavailable [facility], DR REDDY Attending Unavailable [facility], DR REDDY Admitting Unavailable LENCHO, DR JOE Parikh Primary Care Unavailable [facility], DR REDDY Consulting Unavailable MARCIANO NEWELL Attending Unavailable Allergies Allergy Classification Reported Allergen(s) Allergy Type Date of Onset Reaction(s) Facility (1 source) Azithromycin Drug Allergy 06-19-2022 [facility] Repository Medications Current Medications Medication Drug Class(es) Dates Sig (Normalized) Sig (Original) [id number] 200 actuat albuterol 0.09 mg/actuat metered dose [...] tablet (1 source) Corticosteroid Start: 07-14-2021 Medrol (Laeksey) 4 MG as directed Orally for daily dose take half with breakfast half with dinner for 6 days 08 Andrew, 2022 Active Metoprolol (1 source) beta-Adrenergic Melina Metoprolol [...] left breast] Other aftercare (5 sources) Other halfway (current) drug therapy; Translations: [OTH RESIDENTIAL CURRENT DRUG THERAPY] Onset: 07-03-2022 Episodic Other eye disorders (4 sources) Ocular pain, right eye; Translations: [OCULAR PAIN RIGHT EYE] Onset: 10-31-2022 Episodic Other lower respiratory disease (4 sources) Solitary pulmonary nodule; Translations: [SOLITARY PULMONARY NODULE] Onset: 10-22-2022 Episodic Other lower respiratory disease (2 sources) Shortness of breath; Translations: [Shortness of breath] Onset: 01-05-2024 Episodic Other nutritional; endocrine; and metabolic disorders [...] Test Name Value Interpretation Reference Range Facility Office Visiton 01-05-2024 Follow-up visit [id number] IraBipin Teresa 1955 M Date Provider Department Center 01/05/2024 MARCIANO MEZA KIEL [facility] Family History Problem Relation Age of Onset Heart failure Father Coronary artery disease Father Family Status - Relation Status Age at Father Level of Service:79999 MD OFFICE/OUTPATIENT ESTABLISHED MOD MDM 30 MIN Normal [facility] CBC, ALB, ALT, AST, ALK AND CREAon 12-12-2023 Albumin [Mass/Vol] 4.8 g/dL Normal (3.5 - 5.0) [facility] Comment on above: Order Comment: 1LAV 1SST FACILITY: [facility] [id number] Performed By: #### C BC/2A, ESRCRP, VD25 #### [facility] [address] [facility], [address] ALK PHOS 71 U/L Normal (38 - 126) [facility] Comment on above: Order Comment: 1LAV 1SST FACILITY: [facility] [id number] Performed By: #### C BC/2A, ESRCRP, VD25 #### [facility] [address] [facility], [address] ALT [Catalytic activity/Vol] 23 U/L Normal (1 - 45) [facility] Comment on above: Order Comment: 1LAV 1SST FACILITY: [facility] [id number] Performed By: #### Trina BC/2A, ESRCRP, VD25 #### [facility] [address] [facility], [address] AST [Catalytic activity/Vol] 34 U/L Normal (15 - 46) [facility] Comment on above: Order Comment: 1LAV 1SST FACILITY: [facility] [id number] Performed By: #### Trina BC/2A, ESRCRP, VD25 #### [facility] [address] [facility], [address] Creatinine [Mass/Vol] 0.62 mg/dL Low (0.66 - 1.25) [facility] Comment on above: Order Comment: 1LAV 1SST FACILITY: [facility] [id number] Performed By: #### Trina BC/2A, ESRCRP, VD25 #### [facility] [address] [facility], [address] GFR- AMER 156.1 ML/M1.7 Normal (60.0 - 161.8) [facility] Comment on above: Order Comment: 1LAV 1SST FACILITY: [facility] [id number] Performed By: #### Trina BC/2A, ESRCRP, VD25 #### [facility] [address] [facility], [address] GFR-NON AFRIC-AMER 129.0 ML/M1.7 Normal (60.0 - 133.8) [facility] Comment on above: Order Comment: 1LAV 1SST FACILITY: [facility] [id number] Performed By: #### Trina BC/2A, ESRCRP, VD25 #### [facility] [address] [facility], [address] Hematocrit (Bld) [Volume fraction] 46.8 % Normal (42.0 - 52.0) [facility] Comment on above: Order Comment: 1LAV 1SST FACILITY: [facility] [id number] Performed By: #### Trina BC/2A, ESRCRP, VD25 #### [facility] [address] [facility], [address] Hemoglobin (Bld) [Mass/Vol] 15.7 g/dL Normal (14.0 - 18.0) [facility] Comment on above: Order Comment: 1LAV 1SST FACILITY: [facility] [id number] Performed By: #### Trina BC/2A, ESRCRP, VD25 #### [facility] [address] [facility], [address] MCH (RBC) [Entitic mass] 32.0 pg Normal (27.0 - 33.0) [facility] Comment on above: Order Comment: 1LAV 1SST FACILITY: [facility] [id number] Performed By: #### Trina BC/2A, ESRCRP, VD25 #### [facility] [address] [facility], [address] MCHC (RBC) [Mass/Vol] 33.5 g/dL Normal (30.0 - 37.0) [facility] Comment on above: Order Comment: 1LAV 1SST FACILITY: [facility] [id number] Performed By: #### Trina BC/2A, ESRCRP, VD25 #### [facility] [address] [facility], [address] MCV (RBC) [Entitic vol] 95.5 fL High (80.0 - 94.0) [facility] Comment on above: Order Comment: 1LAV 1SST FACILITY: [facility] [id number] Performed By: #### Trina BC/2A, ESRCRP, VD25 #### [facility] [address] [facility], [address] PLT 239 x10^3ul Normal (130 - 400) [facility] Comment on above: Order Comment: 1LAV 1SST FACILITY: [facility] [id number] Performed By: #### C BC/2A, ESRCRP, VD25 #### [facility] [address] [place], [address] RBC 4.90 x10^6ul Normal (4.70 - 6.10) [facility] Comment on above: Order Comment: 1LAV 1SST [facility] [id number] Performed By: #### Trina BC/2A, ESRCRP, VD25 #### [facility] [address] [place], [address] WBC 7.82 x10^3ul Normal (3.80 - 10.60) [facility] Comment on above: Order Comment: 1LAV 1SST FACILITY: [facility] [id number] Performed By: #### Trina BC/2A, ESRCRP, VD25 #### [facility] [address] [place], [address] SED RATE - CRPon - CRP EXTENDED RANGE 2.59 MG/L Normal (0.00 - 3.20) Aristides kami [facility] Comment on above: Performed By: #### Trina BC/2A, ESRCRP, VD25 #### [facility] [address] [place], [address] SED RATE WEST. 14 MM/HR Normal (0 - 24) [facility] Comment on above: Performed By: #### C BC/2A, ESRCRP, VD25 #### [facility] [address] [place], [address] VITAMIN D, 25 HYDROXYon 06-0 VITAMIN D, 25 45.1 NG/ML Normal (30.0 - 100.0) [facility] Comment on above: Result Comment: * * * VITAMIN D, 25 HYDROXY GENERAL GUIDELINE * * * DEFICIENCY = < OR = 20.0 NG/ML INSUFFICIENCY = 20.1 - 29.9 NG/ML SUFFICIENCY = 30.0 - 100.0 NG/ML TOXICITY = > 100.1 NG/ML Performed By: #### C BC/2A, ESRCRP, VD25 #### [facility] [address] [place], [address] CBC, ALB, ALT, AST, ALK AND CREAon 08-13-2023 Albumin [Mass/Vol] 4.6 g/dL Normal (3.5 - 5.0) [facility] Comment on above: Order Comment: FACIL ITY: [facility] [id number] Performed By: #### C BC/2A, ESRCRP #### [facility] [address] [place], [address] ALK PHOS 62 U/L Normal (38 - 126) [facility] Comment on above: Order Comment: FACIL ITY: [facility] [id number] Performed By: #### Trina BC/2A, ESRCRP #### [facility] [address] [place], [address] ALT [Catalytic activity/Vol] 20 U/L Normal (1 - 45) [facility] Comment on above: Order Comment: FACIL ITY: [facility] [id number] Performed By: #### Trina BC/2A, ESRCRP #### [facility] [address] [place], [address] AST [Catalytic activity/Vol] 28 U/L Normal (15 - 46) [facility] Comment on above: Order Comment: FACIL ITY: [facility] [id number] Performed By: #### C BC/2A, ESRCRP #### [facility] [address] [place], [address] Creatinine [Mass/Vol] 0.65 mg/dL Low (0.66 - 1.25) [facility] Comment on above: Order Comment: FACIL ITY: [facility] [id number] Performed By: #### Trina BC/2A, ESRCRP #### [facility] [address] [place], [address] GFR- AMER 148.3 ML/M1.7 Normal (60.0 - 161.8) [facility] Comment on above: Order Comment: FACIL ITY: [facility] [id number] Performed By: #### Trina BC/2A, ESRCRP #### [facility] [address] [place], [address] GFR-NON AFRIC-AMER 122.5 ML/M1.7 Normal (60.0 - 133.8) [facility] Comment on above: Order Comment: [facility] [id number] Performed By: #### Trina HERRERA/2A, ESRCRP #### [facility] [address] [facility], [address] Hematocrit (Bld) [Volume fraction] 45.1 % Normal (42.0 - 52.0) [facility] Comment on above: Order Comment: [facility]IL [facility] [id number] Performed By: #### Trina HERRERA/2A, ESRCRP #### [facility] [address] [facility], [address] Hemoglobin (Bld) [Mass/Vol] 15.0 g/dL Normal (14.0 - 18.0) [facility] Comment on above: Order Comment: FACIL ITY: [facility] [id number] Performed By: #### Trina BC/2A, ESRCRP #### [facility] [address] [facility], [address] MCH (RBC) [Entitic mass] 31.3 pg Normal (27.0 - 33.0) [facility] Comment on above: Order Comment: FACIL ITY: [facility] [id number] Performed By: #### Trina BC/2A, ESRCRP #### [facility] [address] [place], [address] MCHC (RBC) [Mass/Vol] 33.3 g/dL Normal (30.0 - 37.0) [facility] Comment on above: Order Comment: FACIL ITY: [facility] [id number] Performed By: #### Trina BC/2A, ESRCRP #### [facility] [address] [place], [address] MCV (RBC) [Entitic vol] 94.0 fL Normal (80.0 - 94.0) [facility] Comment on above: Order Comment: FACIL ITY: [facility] [id number] Performed By: #### Trian BC/2A, ESRCRP #### [facility] [address] [place], [address] PLT 260 x10^3ul Normal (130 - 400) [facility] Comment on above: Order Comment: FACIL ITY: [facility] [id number] Performed By: #### Trina BC/2A, ESRCRP #### [facility] [address] [place], [address] RBC 4.80 x10^6ul Normal (4.70 - 6.10) [facility] Comment on above: Order Comment: FACIL ITY: [facility] [id number] Performed By: #### Trina BC/2A, ESRCRP #### [facility] [address] [place], [address] WBC 8.04 x10^3ul Normal (3.80 - 10.60) [facility] Comment on above: Order Comment: FACIL ITY: [facility] [id number] Performed By: #### Trina BC/2A, ESRCRP #### [facility] [address] [place], [address] SED RATE - CRPon 08-13-2023 CRP EXTENDED RANGE 1.75 MG/L Normal (0.00 - 3.20) Aristides kami [facility] Comment on above: Performed By: #### C BC/2A, ESRCRP #### [facility] [address] [place], [address] SED RATE WEST. 7 MM/HR Normal (0 - 24) [facility] Comment on above: Performed By: #### C BC/2A, ESRCRP #### [facility] [address] [place], [address] CBC, ALB, ALT, AST, ALK AND CREAon 01-23-2023 Albumin [Mass/Vol] 4.4 g/dL Normal (3.5 - 5.0) [facility] Comment on above: Order Comment: [facility]IL [facility] [id number] Performed By: #### C BC/2A, ESRCRP, VD25 #### [facility] [address] [place], [address] ALK PHOS 68 U/L Normal (38 - 126) [facility] Comment on above: Order Comment: FACIL ITY: [facility] [id number] Performed By: #### C BC/2A, ESRCRP, VD25 #### [facility] [address] [place], [address] ALT [Catalytic activity/Vol] 26 U/L Normal (1 - 45) [facility] Comment on above: Order Comment: FACIL ITY: [facility] [id number] Performed By: #### C BC/2A, ESRCRP, VD25 #### [facility] [address] [place], [address] AST [Catalytic activity/Vol] 34 U/L Normal (15 - 46) [facility] Comment on above: Order Comment: FACIL ITY: [facility] [id number] Performed By: #### C BC/2A, ESRCRP, VD25 #### [facility] [address] [place], [address] Creatinine [Mass/Vol] 0.71 mg/dL Normal (0.66 - 1.25) [facility] Comment on above: Order Comment: FACIL ITY: [facility] [id number] Performed By: #### C BC/2A, ESRCRP, VD25 #### [facility] [address] [facility], [address] GFR- AMER 133.9 ML/M1.7 Normal (60.0 - 161.8) [facility] Comment on above: Order Comment: [facility]IL [facility] [id number] Performed By: #### C BC/2A, ESRCRP, VD25 #### [facility] [address] [facility], [address] GFR-NON AFRIC-AMER 110.7 ML/M1.7 Normal (60.0 - 133.8) [facility] Comment on above: Order Comment: [facility]ACIL IT[facility] [id number] Performed By: #### C BC/2A, ESRCRP, VD25 #### [facility] [address] [facility], [address] Hematocrit (Bld) [Volume fraction] 46.5 % Normal (42.0 - 52.0) [facility] Comment on above: Order Comment: FACIL ITY: [facility] [id number] Performed By: #### C BC/2A, ESRCRP, VD25 #### [facility] [address] [facility], [address] Hemoglobin (Bld) [Mass/Vol] 15.0 g/dL Normal (14.0 - 18.0) [facility] Comment on above: Order Comment: FACIL ITY: [facility] [id number] Performed By: #### C BC/2A, ESRCRP, VD25 #### [facility] [address] [facility], [address] MCH (RBC) [Entitic mass] 29.1 pg Normal (27.0 - 33.0) [facility] Comment on above: Order Comment: FACIL ITY: [facility] [id number] Performed By: #### C BC/2A, ESRCRP, VD25 #### [facility] [address] [place], [address] MCHC (RBC) [Mass/Vol] 32.3 g/dL Normal (30.0 - 37.0) [facility] Comment on above: Order Comment: FACIL ITY: [facility] [id number] Performed By: #### Trnia BC/2A, ESRCRP, VD25 #### [facility] [address] [place], [address] MCV (RBC) [Entitic vol] 90.1 fL Normal (80.0 - 94.0) [facility] Comment on above: Order Comment: FACIL ITY: [facility] [id number] Performed By: #### C BC/2A, ESRCRP, VD25 #### [facility] [address] [place], [address] PLT 305 x10^3ul Normal (130 - 400) [facility] Comment on above: Order Comment: FACIL ITY: [facility] [id number] Performed By: #### C BC/2A, ESRCRP, VD25 #### [facility] [address] [place], [address] RBC 5.16 x10^6ul Normal (4.70 - 6.10) [facility] Comment on above: Order Comment: FACIL ITY: [facility] [id number] Performed By: #### C BC/2A, ESRCRP, VD25 #### [facility] [address] [place], [address] WBC 9.64 x10^3ul Normal (3.80 - 10.60) [facility] Comment on above: Order Comment: FACIL ITY: [facility] [id number] Performed By: #### C BC/2A, ESRCRP, VD25 #### [facility] [address] [place], [address] SED RATE - CRPon 01-23-2023 CRP EXTENDED RANGE 2.76 MG/L Normal (0.00 - 3.20) [facility] Comment on above: Performed By: #### C BC/2A, ESRCRP, VD25 #### [facility] [address] [place], [address] SED RATE WEST. 15 MM/HR Normal (0 - 24) [facility] Comment on above: Performed By: #### C BC/2A, ESRCRP, VD25 #### [facility] [address] [place], [address] VITAMIN D, 25 HYDROXYon 01-05 VITAMIN D, 25 51.3 NG/ML Normal (30.0 - 100.0) [facility] Comment on above: Result Comment: * * * VITAMIN D, 25 HYDROXY GENERAL GUIDELINE * * * DEFICIENCY = < OR = 20.0 NG/ML INSUFFICIENCY = 20.1 - 29.9 NG/ML SUFFICIENCY = 30.0 - 100.0 NG/ML TOXICITY = > 100.1 NG/ML Performed By: #### C BC/2A, ESRCRP, VD25 #### [facility] [address] [place], [address] FREE T3on 12-04-2022 FREE T3 2.98 pg/mlL Normal 2.18-3.98 [facility] Comment on above: Performed By: #### S EDR #### [facility] [address] [place] [address] Dr. Wilmer Francis FREE T4on 12-04-2022 Free T4 [Mass/Vol] 1.25 ng/dL Normal 0.76-1.46 [facility] Comment on above: Performed By: #### B BOILER TUBE BLOWER #### [facility] [address] [place], [place] [address] Dr. Wilmer Francis LIPID PROFILEon 12-04-2022 CHOL-HDL RATIO NORM SEE BELOW Normal [facility] Comment on above: Result Comment: 3.3 - 4.4 LOW RISK 4.4 - 7.1 AVERAGE RISK 7.1 - 11.0 MODERATE RISK >11.0 HIGH RISK Performed By: #### S EDR #### [facility] [address] [place] [address] [address] Wilmer Francis Cholesterol [Mass/Vol] 137 mg/dL Normal <=200 [facility] Comment on above: Performed By: #### S EDR #### [facility] [address] [address] [address] Wilmer Francis Cholesterol in HDL [Mass/Vol] 53 mg/dL Normal 40-60 [facility] Comment on above: Performed By: #### S EDR #### [facility] [address] [address] [address] Wilmer Francis Cholesterol in LDL [Mass/Vol] 66.2 mg/dL Normal [facility] Comment on above: Performed By: #### S EDR #### [facility] [address] [address] [address] Wilmer Francis Cholesterol.total/Cho lesterol in HDL [Mass ratio] 2.6 {ratio} Normal [facility] Comment on above: Performed By: #### S EDR #### [facility] [address] [address] [address] Wilmer Francis HDL NORMAL > or = 60 mg/dl - LOW CARDIOVASCULAR RISK <40 mg/dl - HIGH CARDIOVASCULAR RISK Normal [facility] Comment on above: Performed By: #### S EDR #### [facility] [address] [address] [address] Wilmer Francis LDL CALC NORMAL SEE BELOW Normal [facility] Comment on above: Result Comment: <100 mg/dl OPTIMAL 100 - 129 mg/dl NEAR OR ABOVE OPTIMAL 130 - 159 mg/dl BORDERLINE HIGH 160 - 189 mg/dl HIGH >190 mg/dl VERY HIGH Performed By: #### S EDR #### [facility] [address] [address] [address] Wilmer Francis Triglyceride [Mass/Vol] 89 mg/dL Normal <=150 [facility] Comment on above: Performed By: #### S EDR #### [facility] [address] [address] [address] Wilmer Francis VLDL CALC 17.8 mg/dL Normal [facility] Comment on above: Performed By: #### S EDR #### [facility] [address] [address] [address] Wilmer Francis PROF 14(COMP METB)on 023 Albumin [Mass/Vol] 3.5 g/dL Normal 3.4-5.0 [facility] Comment on above: Performed By: #### S EDR #### [facility] [address] [place] [address] Dr. Wilmer Francis Albumin/Globulin [Mass ratio] 0.9 {ratio} Normal [facility] Comment on above: Performed By: #### S EDR #### [facility] [address] [address] [address] Wilmer Francis ALP [Catalytic activity/Vol] 76 U/L Normal 46-116 [facility] Comment on above: Performed By: #### S EDR #### [facility] [address] [place] [address] Dr. Wilmer Francis ALT [Catalytic activity/Vol] 25 U/L Normal 16-63 [facility] Comment on above: Performed By: #### S EDR #### [facility] [address] [address] [address] Wilmer Francis Anion gap [Moles/Vol] 12.6 mmol/L Normal [facility] Comment on above: Performed By: #### S EDR #### [facility] [address] [place] [address] Dr. Wilmer Francis AST [Catalytic activity/Vol] 17 U/L Normal 15-37 [facility] Comment on above: Performed By: #### S EDR #### [facility] [address] [place] [address] Dr. Wilmer Francis Bilirubin [Mass/Vol] 0.4 mg/dL Normal 0.2-1.0 [facility] Comment on above: Performed By: #### S EDR #### [facility] [address] [address] [address] Wilmer Francis Calcium [Mass/Vol] 9.5 mg/dL Normal 8.5-10.1 [facility] Comment on above: Performed By: #### S EDR #### [facility] [address] [address] [address] Wilmer Francis Chloride [Moles/Vol] 98 mmol/L Normal 98-107 [facility] Comment on above: Performed By: #### S EDR #### [facility] [address] [place] [address] Dr. Wilmer Francis CO2 [Moles/Vol] 31.0 mmol/L Normal 21.0-32.0 [facility] Comment on above: Performed By: #### S EDR #### [facility] [address] [place] [address] Dr. Wilmer Francis Creatinine [Mass/Vol] 1.13 mg/dL Normal 0.70-1.30 [facility] Comment on above: Performed By: #### S EDR #### [facility] [address] [place] [address] Dr. Wilmer Francis EGFR-AF JAPANESE >60 Normal >=60 [facility] Comment on above: Performed By: #### S EDR #### [facility] [address] [place] [address] Dr. Wilmer Francis EGFR-NON AF JAPANESE >60 Normal >=60 [facility] Comment on above: Performed By: #### S EDR #### [facility] [address] [place] [address] Dr. Wilmer Francis Globulin (S) [Mass/Vol] 4.1 g/dL Normal [facility] Comment on above: Performed By: #### S EDR #### [facility] [address] [place] [address] Dr. Wilmer Francis Glucose [Mass/Vol] 123 mg/dL Critically high 74-106 T [facility] Comment on above: Performed By: #### S EDR #### [facility] [address] [address] [address] Wilmer Francis Potassium [Moles/Vol] 4.6 mmol/L Normal 3.5-5.1 [facility] Comment on above: Performed By: #### S EDR #### [facility] [address] [address] [address] Wilmer Francis Protein [Mass/Vol] 7.6 g/dL Normal 6.4-8.2 [facility] Comment on above: Performed By: #### S EDR #### [facility] [address] [place] [address] Dr. Wilmer Francis Sodium [Moles/Vol] 137 mmol/L Normal 136-145 [facility] Comment on above: Performed By: #### S EDR #### [facility] [address] [place] [address] Dr. Wilmer Francis Urea nitrogen [Mass/Vol] 14.0 mg/dL Normal 7.0-18.0 [facility] Comment on above: Performed By: #### S EDR #### [facility] [address] [place] [address] Dr. Wilmer Francis Urea nitrogen/Creatinine [Mass ratio] 12.4 mg/mg Normal [facility] Comment on above: Performed By: #### S EDR #### [facility] [address] [place] [address] Dr. Wilmer Francis TSHon 12-04-2022 TSH 0.479 uIU/mL Normal 0.358-3.740 [facility] Comment on above: Performed By: #### S EDR #### [facility] [address] [place] [address] Dr. Wilmer Francis ALBUMINon 11-28-2022 Albumin [Mass/Vol] 3.3 g/dL Critically low 3.4-5.0 [facility] Comment on above: Performed By: #### P RTELEC #### [facility] [address] [place] [address] Dr. Wilmer Francis ALKALINE PHOSPHAon ALP [Catalytic activity/Vol] 72 U/L Normal 46-116 [facility] Comment on above: Performed By: #### P RTELEC #### [facility] [address] [place] [address] Dr. Wilmer Francis CBC AUTO DIFFon 11-28-2022 BASO # 0.1 103/ul Normal 0.0-0.1 [facility] Comment on above: Performed By: #### S EDR #### [facility] [address] [place] [address] Dr. Wilmer Francis Basophils/100 WBC (Bld) 0.7 % Normal 0.2-2.0 [facility] Comment on above: Performed By: #### S EDR #### [facility] [address] [place] [address] Dr. Wilmer Francis EO # 0.8 103/ul Critically high 0.0-0.7 [facility] Comment on above: Performed By: #### S EDR #### [facility] [address] [place] [address] Dr. Wilmer Francis Eosinophils/100 WBC (Bld) 9.1 % Critically high 0.9-7.0 [facility] Comment on above: Performed By: #### S EDR #### [facility] [address] [place] [address] Dr. iWlmer Francis Erythrocyte distribution width (RBC) [Ratio] 13.9 % Normal 11.0-15.0 [facility] Comment on above: Performed By: #### S EDR #### [facility] [address] [place] [address] Dr. Wilmer Francis Hematocrit (Bld) [Volume fraction] 39.4 % Critically low 42.0-54.0 [facility] Comment on above: Performed By: #### S EDR #### [facility] [address] [place] [address] Dr. Wilmer Francis Hemoglobin (Bld) [Mass/Vol] 13.2 g/dL Critically low 14.0-18.0 [facility] Comment on above: Performed By: #### S EDR #### [facility] [address] [address] [address] Wilmer Francis IG # 0.11 10e3/ul Critically high 0.00-0.03 [facility] Comment on above: Performed By: #### S EDR #### [facility] [address] [address] [address] Wilmer Francis IG % 1.3 % Critically high 0.0-0.5 [facility] Comment on above: Performed By: #### S EDR #### [facility] [address] [address] [address] Wilmer Francis LYMPH # 1.9 103/ul Normal 1.2-3.8 [facility] Comment on above: Performed By: #### S EDR #### [facility] [address] [address] [address] Wilmer Francis Lymphocytes/100 WBC (Bld) 21.8 % Normal 20.5-60.0 [facility] Comment on above: Performed By: #### S EDR #### [facility] [address] [address] [address] Wilmer Francis MANUAL DIFF REQ NO Normal [facility] Comment on above: Performed By: #### S EDR #### [facility] [address] [address] [address] Wilmer Francis MCH (RBC) [Entitic mass] 28.3 pg Normal 25.9-34.0 [facility] Comment on above: Performed By: #### S EDR #### [facility] [address] [address] [address] Wilmer Francis MCHC (RBC) [Mass/Vol] 33.5 g/dL Normal 29.9-35.2 [facility] Comment on above: Performed By: #### S EDR #### [facility] [address] [address] [address] Wilmer Francis MCV (RBC) [Entitic vol] 84.5 fL Normal 80.0-94.0 [facility] Comment on above: Performed By: #### S EDR #### [facility] [address] [address] [address] Wilmer Francis MONO # 0.9 103/ul Critically high 0.3-0.8 [facility] Comment on above: Performed By: #### S EDR #### [facility] [address] [address] [address] Wilmer Francis Monocytes/100 WBC (Bld) 9.9 % Normal 1.7-12.0 [facility] Comment on above: Performed By: #### S EDR #### [facility] [address] [address] [address] Wilmer Francis NEUT # 4.9 103/ul Normal 1.4-6.5 [facility] Comment on above: Performed By: #### S EDR #### [facility] [address] [address] [address] Wilmer Francis Neutrophils/100 WBC (Bld) 57.2 % Normal 43.0-75.0 [facility] Comment on above: Performed By: #### S EDR #### [facility] [address] [address] [address] Wilmer Francis Platelet mean volume (Bld) [Entitic vol] 8.3 fL Critically low 9.5-13.5 [facility] Comment on above: Performed By: #### S EDR #### [facility] [address] [address] [address] Wilmer Francis PLT 329 103/ul Normal 150-450 [facility] Comment on above: Performed By: #### S EDR #### [facility] [address] [address] [address] Wilmer Francis RBC 4.66 106/ul Critically low 4.70-6.10 [facility] Comment on above: Performed By: #### S EDR #### [facility] [address] [address] [address] Wilmer Francis WBC 8.6 103/ul Normal 4.0-11.0 [facility] Comment on above: Performed By: #### S EDR #### [facility] [address] [address] [address] Wilmer Francis CREATININEon 11-28-2022 Creatinine [Mass/Vol] 1.00 mg/dL Normal 0.70-1.30 [facility] Comment on above: Performed By: #### P RTELEC #### [facility] [address] [address] [address] Wilmer Francis EGFR-AF JAPANESE >60 Normal >=60 [facility] Comment on above: Performed By: #### P RTELEC #### [facility] [address] [place] [address] Dr. Wilmer Francis EGFR-NON AF JAPANESE >60 Normal >=60 [facility] Comment on above: Performed By: #### P RTELEC #### [facility] [address] [place] [address] Dr. Wilmer Francis CRPon 11-28-2022 CRP 2.5 mg/dL Critically high <=1.0 [facility] Comment on above: Performed By: #### P RTELEC #### [facility] [address] [place] [address] Dr. Wilmer Francis SED RATE [facility] 2022 SED RATE 71 mm/hr Critically high <=20 [facility] Comment on above: Performed By: #### S EDR #### [facility] [address] [place] [address] Dr. Wilmer Francis SGOTon 11-28-2022 AST [Catalytic activity/Vol] 16 U/L Normal 15-37 [facility] Comment on above: Performed By: #### P RTELEC #### [facility] [address] [place] [address] Dr. Wilmer Francis SGPTon 11-28-2022 ALT [Catalytic activity/Vol] 27 U/L Normal 16-63 [facility] Comment on above: Performed By: #### P RTELEC #### [facility] [address] [place] [address] ORBIT WO CONon [...] by: KEVIN STANLEY Date: 2022-10-31 09:47 Normal [facility] CT CHEST WO CONon 10-22-2022 CT [...] GIAN MELENDEZ Date: 2022-10-22 12:17 Normal [facility] US TUTU DOP LEG BILon 023 US [...] by: KEVIN STANLEY Date: 2022-09-06 16:39 Normal [facility] CT LUNG CANCER SCREENINGon 0 07-16-2022 [...] by: GIAN MELENDEZ Date: 2022-07-16 10:02 Normal [facility] FREE T3on 07-16-2022 FREE T3 2.97 pg/mlL Normal 2.18-3.98 [facility] Comment on above: Performed By: #### T SH, CRP #### [facility] [address] [address] [address] Wilmer Francis FREE T4on 07-16-2022 Free T4 [Mass/Vol] 1.15 ng/dL Normal 0.76-1.46 [facility] Comment on above: Performed By: #### T SH, CRP #### [facility] [address] [address] [address] Wilmer Francis LIPID PROFILEon 07-16-2022 CHOL-HDL RATIO NORM SEE BELOW Normal [facility] Comment on above: Result Comment: 3.3 - 4.4 LOW RISK 4.4 - 7.1 AVERAGE RISK 7.1 - 11.0 MODERATE RISK >11.0 HIGH RISK Performed By: #### B BOILER TUBE BLOWER #### [facility] [address] [place] [address] Dr. Wilmer Francis Cholesterol [Mass/Vol] 131 mg/dL Normal <=200 [facility] Comment on above: Performed By: #### B BOILER TUBE BLOWER #### [facility] [address] [place] [address] Dr. Wilmer Francis Cholesterol in HDL [Mass/Vol] 58 mg/dL Normal 40-60 [facility] Comment on above: Performed By: #### B BOILER TUBE BLOWER #### [facility] [address] [place] [address] Dr. Wilmer Francis Cholesterol in LDL [Mass/Vol] 57.2 mg/dL Normal [facility] Comment on above: Performed By: #### B BOILER TUBE BLOWER #### [facility] [address] [place] [address] Dr. Wilmer Francis Cholesterol.total/Cho lesterol in HDL [Mass ratio] 2.3 {ratio} Normal [facility] Comment on above: Performed By: #### B BOILER TUBE BLOWER #### [facility] [address] [place] [address] Dr. Wilmer Francis HDL NORMAL > or = 60 mg/dl - LOW CARDIOVASCULAR RISK <40 mg/dl - HIGH CARDIOVASCULAR RISK Normal [facility] Comment on above: Performed By: #### B BOILER TUBE BLOWER #### [facility] [address] [place] [address] Dr. Wilmer Francis LDL CALC NORMAL SEE BELOW Normal [facility] Comment on above: Result Comment: <100 mg/dl OPTIMAL 100 - 129 mg/dl NEAR OR ABOVE OPTIMAL 130 - 159 mg/dl BORDERLINE HIGH 160 - 189 mg/dl HIGH >190 mg/dl VERY HIGH Performed By: #### B BOILER TUBE BLOWER #### [facility] [address] [address] [address] Wilmer Francis Triglyceride [Mass/Vol] 79 mg/dL Normal <=150 [facility] Comment on above: Performed By: #### B BOILER TUBE BLOWER #### [facility] [address] [address] [address] Wilmer Francis VLDL CALC 15.8 mg/dL Normal [facility] Comment on above: Performed By: #### B BOILER TUBE BLOWER #### [facility] [address] [place] [address] Dr. Wilmer Francis PROF 14(COMP METB)on 023 Albumin [Mass/Vol] 3.2 g/dL Critically low 3.4-5.0 [facility] Comment on above: Performed By: #### B BOILER TUBE BLOWER #### [facility] [address] [address] [address] Wilmer Francis Albumin/Globulin [Mass ratio] 0.7 {ratio} Normal [facility] Comment on above: Performed By: #### B BOILER TUBE BLOWER #### [facility] [address] [place] [address] Dr. Wilmer Francis ALP [Catalytic activity/Vol] 75 U/L Normal 46-116 [facility] Comment on above: Performed By: #### B BOILER TUBE BLOWER #### [facility] [address] [address] [address] Wilmer Francis ALT [Catalytic activity/Vol] 23 U/L Normal 16-63 [facility] Comment on above: Performed By: #### B BOILER TUBE BLOWER #### [facility] [address] [address] [address] Wilmer Francis Anion gap [Moles/Vol] 11.7 mmol/L Normal [facility] Comment on above: Performed By: #### B BOILER TUBE BLOWER #### [facility] [address] [place] [address] Dr. Wilmer Francis AST [Catalytic activity/Vol] 16 U/L Normal 15-37 [facility] Comment on above: Performed By: #### B BOILER TUBE BLOWER #### [facility] [address] [place] [address] Dr. Wilmer Francis Bilirubin [Mass/Vol] 0.4 mg/dL Normal 0.2-1.0 [facility] Comment on above: Performed By: #### B BOILER TUBE BLOWER #### [facility] [address] [place] [address] Dr. iWlmer Francis Calcium [Mass/Vol] 9.5 mg/dL Normal 8.5-10.1 [facility] Comment on above: Performed By: #### B BOILER TUBE BLOWER #### [facility] [address] [place] [address] Dr. Wilmer Francis Chloride [Moles/Vol] 103 mmol/L Normal 98-107 [facility] Comment on above: Performed By: #### B BOILER TUBE BLOWER #### [facility] [address] [place] [address] Dr. Wilmer Francis CO2 [Moles/Vol] 31.8 mmol/L Normal 21.0-32.0 [facility] Comment on above: Performed By: #### B BOILER TUBE BLOWER #### [facility] [address] [place] [address] Dr. Wilmer Francis Creatinine [Mass/Vol] 0.80 mg/dL Normal 0.70-1.30 [facility] Comment on above: Performed By: #### B BOILER TUBE BLOWER #### [facility] [address] [place] [address] Dr. Wilmer Francis EGFR-AF JAPANESE >60 Normal >=60 [facility] Comment on above: Performed By: #### B BOILER TUBE BLOWER #### [facility] [address] [place] [address] Dr. Wilmer Francis EGFR-NON AF JAPANESE >60 Normal >=60 [facility] Comment on above: Performed By: #### B BOILER TUBE BLOWER #### [facility] [address] [place] [address] Dr. Wilmer Francis Globulin (S) [Mass/Vol] 4.4 g/dL Normal [facility] Comment on above: Performed By: #### B BOILER TUBE BLOWER #### [facility] [address] [place] [address] Dr. Wilmer Francis Glucose [Mass/Vol] 145 mg/dL Critically high 74-106 [facility] Comment on above: Performed By: #### B BOILER TUBE BLOWER #### [facility] [address] [address] [address] Wilmer Francis Potassium [Moles/Vol] 4.5 mmol/L Normal 3.5-5.1 [facility] Comment on above: Performed By: #### B BOILER TUBE BLOWER #### [facility] [address] [place] [address] Dr. Wilmer Francis Protein [Mass/Vol] 7.6 g/dL Normal 6.4-8.2 [facility] Comment on above: Performed By: #### B BOILER TUBE BLOWER #### [facility] [address] [place] [address] Dr. Wilmer Francis Sodium [Moles/Vol] 142 mmol/L Normal 136-145 [facility] Comment on above: Performed By: #### B BOILER TUBE BLOWER #### [facility] [address] [place] [address] Dr. Wilmer Francis Urea nitrogen [Mass/Vol] 12.0 mg/dL Normal 7.0-18.0 [facility] Comment on above: Performed By: #### B BOILER TUBE BLOWER #### [facility] [address] [place] [address] Dr. Wilmer Francis Urea nitrogen/Creatinine [Mass ratio] 15.0 mg/mg Normal [facility] Comment on above: Performed By: #### B BOILER TUBE BLOWER #### [facility] [address] [place] [address] Dr. Wilmer Francis TSHon 07-16-2022 TSH 0.770 uIU/mL Normal 0.358-3.740 [facility] Comment on above: Performed By: #### T SH, CRP #### [facility] [address] [place] [address] Dr. Wilmer Francis CBC AUTO DIFFon 06-22-2022 BASO # 0.0 103/ul Normal 0.0-0.1 [facility] Comment on above: Performed By: #### S EDR #### [facility] [address] [place] [address] Dr. Wilmer Francis Basophils/100 WBC (Bld) 0.1 % Critically low 0.2-2.0 [facility] Comment on above: Performed By: #### S EDR #### [facility] [address] [address] [address] Wilmer Francis EO # 0.0 103/ul Normal 0.0-0.7 [facility] Comment on above: Performed By: #### S EDR #### [facility] [address] [place] [address] Dr. Wilmer Francis Eosinophils/100 WBC (Bld) 0.0 % Critically low 0.9-7.0 [facility] Comment on above: Performed By: #### S EDR #### [facility] [address] [place] [address] Dr. Wilmer Francis Erythrocyte distribution width (RBC) [Ratio] 12.7 % Normal 11.0-15.0 [facility] Comment on above: Performed By: #### S EDR #### [facility] [address] [place] [address] Dr. Wilmer Francis Hematocrit (Bld) [Volume fraction] 36.5 % Critically low 42.0-54.0 [facility] Comment on above: Performed By: #### S EDR #### [facility] [address] [place] [address] Dr. Wilmer Francis Hemoglobin (Bld) [Mass/Vol] 12.5 g/dL Critically low 14.0-18.0 [facility] Comment on above: Performed By: #### S EDR #### [facility] [address] [place] [address] Dr. Wilmer Francis IG # 0.08 10e3/ul Critically high 0.00-0.03 [facility] Comment on above: Performed By: #### S EDR #### [facility] [address] [address] [address] Wilmer Francis IG % 0.6 % Critically high 0.0-0.5 [facility] Comment on above: Performed By: #### S EDR #### [facility] [address] [address] [address] Wilmer Francis LYMPH # 0.8 103/ul Critically low 1.2-3.8 [facility] Comment on above: Performed By: #### S EDR #### [facility] [address] [address] [address] Wilmer Francis Lymphocytes/100 WBC (Bld) 5.9 % Critically low 20.5-60.0 [facility] Comment on above: Performed By: #### S EDR #### [facility] [address] [place] [address] Dr. Wilmer Francis MANUAL DIFF REQ NO Normal [facility] Comment on above: Performed By: #### S EDR #### [facility] [address] [address] [address] Wilmer Francis MCH (RBC) [Entitic mass] 30.5 pg Normal 25.9-34.0 [facility] Comment on above: Performed By: #### S EDR #### [facility] [address] [place] [address] Dr. Wilmer Francis MCHC (RBC) [Mass/Vol] 34.2 g/dL Normal 29.9-35.2 [facility] Comment on above: Performed By: #### S EDR #### [facility] [address] [place] [address] Dr. Wilmer Francis MCV (RBC) [Entitic vol] 89.0 fL Normal 80.0-94.0 [facility] Comment on above: Performed By: #### S EDR #### [facility] [address] [place] [address] Dr. Wilmer Francis MONO # 0.8 103/ul Normal 0.3-0.8 [facility] Comment on above: Performed By: #### S EDR #### [facility] [address] [place] [address] Dr. Wilmer Francis Monocytes/100 WBC (Bld) 6.0 % Normal 1.7-12.0 [facility] Comment on above: Performed By: #### S EDR #### [facility] [address] [address] [address] Wilmer Francis NEUT # 11.3 103/ul Critically high 1.4-6.5 [facility] Comment on above: Performed By: #### S EDR #### [facility] [address] [address] [address] Wilmer Francis Neutrophils/100 WBC (Bld) 87.4 % Critically high 43.0-75.0 [facility] Comment on above: Performed By: #### S EDR #### [facility] [address] [address] [address] Wilmer Francis Platelet mean volume (Bld) [Entitic vol] 9.1 fL Critically low 9.5-13.5 [facility] Comment on above: Performed By: #### S EDR #### [facility] [address] [address] [address] Wilmer Francis PLT 347 103/ul Normal 150-450 [facility] Comment on above: Performed By: #### S EDR #### [facility] [address] [address] [address] Wilmer Francis RBC 4.10 106/ul Critically low 4.70-6.10 [facility] Comment on above: Performed By: #### S EDR #### [facility] [address] [address] [address] Wilmer Francis WBC 13.0 103/ul Critically high 4.0-11.0 [facility] Comment on above: Performed By: #### S EDR #### [facility] [address] [address] [address] Wilmer Francis CRPon 06-22-2022 CRP 3.1 mg/dL Critically high <=1.0 [facility] Comment on above: Performed By: #### P RTELEC #### [facility] [address] [address] [address] Wilmer Francis PROF CHEM 8 (BAS METB)on Anion gap [Moles/Vol] 9.9 mmol/L Normal [facility] Comment on above: Performed By: #### T SH, CRP #### [facility] [address] [address] [address] Wilmer Francis Calcium [Mass/Vol] 9.7 mg/dL Normal 8.5-10.1 [facility] Comment on above: Performed By: #### T SH, CRP #### [facility] [address] [address] [address] Wilmer Francis Chloride [Moles/Vol] 97 mmol/L Critically low 98-107 [facility] Comment on above: Performed By: #### T SH, CRP #### [facility] [address] [address] [address] Wilmer Francis CO2 [Moles/Vol] 31.6 mmol/L Normal 21.0-32.0 [facility] Comment on above: Performed By: #### T SH, CRP #### [facility] [address] [address] [address] Wilmer Francis Creatinine [Mass/Vol] 0.91 mg/dL Normal 0.70-1.30 [facility] Comment on above: Performed By: #### T SH, CRP #### [facility] [address] [place] [address] Dr. Wilmer Francis EGFR-AF JAPANESE >60 Normal >=60 [facility] Comment on above: Performed By: #### T SH, CRP #### [facility] [address] [address] [address] Wilmer Francis EGFR-NON AF JAPANESE >60 Normal >=60 [facility] Comment on above: Performed By: #### T SH, CRP #### [facility] [address] [place] [address] Dr. Wilmer Francis Glucose [Mass/Vol] 222 mg/dL Critically high 74-106 [facility] Comment on above: Performed By: #### T SH, CRP #### [facility] [address] [address] [address] Wilmer Francis Potassium [Moles/Vol] 4.4 mmol/L Normal 3.5-5.1 [facility] Comment on above: Performed By: #### T SH, CRP #### [facility] [address] [address] [address] Wilmer Francis Sodium [Moles/Vol] 134 mmol/L Critically low 136-145 [facility] Comment on above: Performed By: #### T SH, CRP #### [facility] [address] [address] [address] Wilmer Francis Urea nitrogen [Mass/Vol] 19.0 mg/dL Critically high 7.0-18.0 [facility] Comment on above: Performed By: #### T SH, CRP #### [facility] [address] [place] [address] Dr. Wilmer Francis Urea nitrogen/Creatinine [Mass ratio] 20.9 mg/mg Normal [facility] Comment on above: Performed By: #### T SH, CRP #### [facility] [address] [address] [address] Wilmer Francis Anion gap [Moles/Vol] 9.5 mmol/L Normal [facility] Comment on above: Performed By: #### P RTELEC #### [facility] [address] [place] [address] Dr. Wilmer Francis Calcium [Mass/Vol] 9.4 mg/dL Normal 8.5-10.1 [facility] Comment on above: Performed By: #### P RTELEC #### [facility] [address] [place] [address] Dr. Wilmer Francis Chloride [Moles/Vol] 99 mmol/L Normal 98-107 [facility] Comment on above: Performed By: #### P RTELEC #### [facility] [address] [place] [address] Dr. Wilmer Francis CO2 [Moles/Vol] 30.4 mmol/L Normal 21.0-32.0 [facility] Comment on above: Performed By: #### P RTELEC #### [facility] [address] [address] [address] Wilmer Francis Creatinine [Mass/Vol] 0.91 mg/dL Normal 0.70-1.30 [facility] Comment on above: Performed By: #### P RTELEC #### [facility] [address] [address] [address] Wilmer Francis EGFR-AF JAPANESE >60 Normal >=60 [facility] Comment on above: Performed By: #### P RTELEC #### [facility] [address] [place] [address] Dr. Wilmer Francis EGFR-NON AF JAPANESE >60 Normal >=60 [facility] Comment on above: Performed By: #### P RTELEC #### [facility] [address] [place] [address] Dr. Wilmer Francis Glucose [Mass/Vol] 266 mg/dL Critically high 74-106 [facility] Comment on above: Performed By: #### P RTELEC #### [facility] [address] [address] [address] Wilmer Francis Potassium [Moles/Vol] 3.9 mmol/L Normal 3.5-5.1 [facility] Comment on above: Performed By: #### P RTELEC #### [facility] [address] [place] [address] Dr. Wilmer Francis Sodium [Moles/Vol] 135 mmol/L Critically low 136-145 [facility] Comment on above: Performed By: #### P RTELEC #### [facility] [address] [place] [address] Dr. Wilmer Francis Urea nitrogen [Mass/Vol] 21.0 mg/dL Critically high 7.0-18.0 [facility] Comment on above: Performed By: #### P RTELEC #### [facility] [address] [place] [address] Dr. Wilmer Francis Urea nitrogen/Creatinine [Mass ratio] 23.1 mg/mg Normal [facility] Comment on above: Performed By: #### P RTELEC #### [facility] [address] [place] [address] Dr. Wilmer Francis Anion gap [Moles/Vol] 10.0 mmol/L Normal [facility] Comment on above: Performed By: #### S EDR #### [facility] [address] [address] [address] Wilmer Francis Calcium [Mass/Vol] 9.4 mg/dL Normal 8.5-10.1 [facility] Comment on above: Performed By: #### S EDR #### [facility] [address] [address] [address] Wilmer Francis Chloride [Moles/Vol] 97 mmol/L Critically low 98-107 [facility] Comment on above: Performed By: #### S EDR #### [facility] [address] [place] [address] Dr. Wilmer Francis CO2 [Moles/Vol] 28.9 mmol/L Normal 21.0-32.0 [facility] Comment on above: Performed By: #### S EDR #### [facility] [address] [place] [address] Dr. Wilmer Francis Creatinine [Mass/Vol] 1.19 mg/dL Normal 0.70-1.30 [facility] Comment on above: Performed By: #### S EDR #### [facility] [address] [place] [address] Dr. Wilmer Francis EGFR-AF JAPANESE >60 Normal >=60 [facility] Comment on above: Performed By: #### S EDR #### [facility] [address] [address] [address] Wilmer Francis EGFR-NON AF JAPANESE >60 Normal >=60 [facility] Comment on above: Performed By: #### S EDR #### [facility] [address] [address] [address] Wilmer Francis Glucose [Mass/Vol] 343 mg/dL Critically high 74-106 [facility] Comment on above: Performed By: #### S EDR #### [facility] [address] [address] [address] Wilmer Francis Potassium [Moles/Vol] 3.9 mmol/L Normal 3.5-5.1 [facility] Comment on above: Performed By: #### S EDR #### [facility] [address] [address] [address] Wilmer Francis Sodium [Moles/Vol] 132 mmol/L Critically low 136-145 [facility] Comment on above: Performed By: #### S EDR #### [facility] [address] [address] [address] Wilmer Francis Urea nitrogen [Mass/Vol] 24.0 mg/dL Critically high 7.0-18.0 [facility] Comment on above: Performed By: #### S EDR #### [facility] [address] [place] [address] Dr. Wilmer Francis Urea nitrogen/Creatinine [Mass ratio] 20.2 mg/mg Normal [facility] Comment on above: Performed By: #### S EDR #### [facility] [address] [place] [address] Dr. Wilmer Francis [facility] SED RATE 74 mm/hr Critically high <=20 [facility] Comment on above: Performed By: #### T SH, CRP #### [facility] [address] [place] [address] Dr. Wilmer Francis JUICE by IFAon 06-21-2022 Antinuclear Antibodies, IFA Negative Normal [facility] Comment on above: Result Comment: Nega tive <1:80 Borderline 1:80 Positive >1:80 ICAP nomenclature: AC-0 For more information about Hep-2 cell patterns use ANApatterns.org, the official website for the International Consensus on Antinuclear Antibody (JUICE) Patterns (ICAP). Performed By: #### S EDR #### [facility] [address] [place] [address] Dr. Wilmer Francis CBC AUTO DIFFon 06-21-2022 BASO # 0.0 103/ul Normal 0.0-0.1 [facility] Comment on above: Performed By: #### R SV, INFLUAB #### [facility] [address] [place] [address] Dr. Wilmer Francis Basophils/100 WBC (Bld) 0.1 % Critically low 0.2-2.0 [facility] Comment on above: Performed By: #### R SV, INFLUAB #### [facility] [address] [place] [address] Dr. Wilmer Francis EO # 0.0 103/ul Normal 0.0-0.7 [facility] Comment on above: Performed By: #### R SV, INFLUAB #### [facility] [address] [place] [address] Dr. Wilmer Francis Eosinophils/100 WBC (Bld) 0.1 % Critically low 0.9-7.0 [facility] Comment on above: Performed By: #### R SV, INFLUAB #### [facility] [address] [place] [address] Dr. Wilmer Francis Erythrocyte distribution width (RBC) [Ratio] 12.5 % Normal 11.0-15.0 [facility] Comment on above: Performed By: #### R SV, INFLUAB #### [facility] [address] [place] [address] Dr. Wilmer Francsi Hematocrit (Bld) [Volume fraction] 36.6 % Critically low 42.0-54.0 [facility] Comment on above: Performed By: #### R SV, INFLUAB #### [facility] [address] [place] [address] Dr. Wilmer Francis Hemoglobin (Bld) [Mass/Vol] 12.5 g/dL Critically low 14.0-18.0 [facility] Comment on above: Performed By: #### R SV, INFLUAB #### [facility] [address] [place] [address] Dr. Wilmer Francis IG # 0.13 10e3/ul Critically high 0.00-0.03 [facility] Comment on above: Performed By: #### R SV, INFLUAB #### [facility] [address] [place] [address] Dr. Wilmer Francis IG % 0.7 % Critically high 0.0-0.5 [facility] Comment on above: Performed By: #### R SV, INFLUAB #### [facility] [address] [place] [address] Dr. Wilmer Francis LYMPH # 0.6 103/ul Critically low 1.2-3.8 [facility] Comment on above: Performed By: #### R SV, INFLUAB #### [facility] [address] [place] [address] Dr. Wilmer Francis Lymphocytes/100 WBC (Bld) 3.3 % Critically low 20.5-60.0 [facility] Comment on above: Performed By: #### R SV, INFLUAB #### [facility] [address] [place] [address] Dr. Wilmer Francis MANUAL DIFF REQ NO Normal [facility] Comment on above: Performed By: #### R SV, INFLUAB #### [facility] [address] [place] [address] Dr. Wilmer Francis MCH (RBC) [Entitic mass] 30.6 pg Normal 25.9-34.0 [facility] Comment on above: Performed By: #### R SV, INFLUAB #### [facility] [address] [place] [address] Dr. Wilmer Francis MCHC (RBC) [Mass/Vol] 34.2 g/dL Normal 29.9-35.2 [facility] Comment on above: Performed By: #### R SV, INFLUAB #### [facility] [address] [place] [address] Dr. Wilmer Francis MCV (RBC) [Entitic vol] 89.5 fL Normal 80.0-94.0 [facility] Comment on above: Performed By: #### R SV, INFLUAB #### [facility] [address] [place] [address] Dr. Wilmer Francis MONO # 1.1 103/ul Critically high 0.3-0.8 [facility] Comment on above: Performed By: #### R SV, INFLUAB #### [facility] [address] [place] [address] Dr. Wilmer Francis Monocytes/100 WBC (Bld) 5.7 % Normal 1.7-12.0 [facility] Comment on above: Performed By: #### R SV, INFLUAB #### [facility] [address] [address] [address] Wilmer Francis NEUT # 17.3 103/ul Critically high 1.4-6.5 [facility] Comment on above: Performed By: #### R SV, INFLUAB #### [facility] [address] [place] [address] Dr. Wilmer Francis Neutrophils/100 WBC (Bld) 90.1 % Critically high 43.0-75.0 [facility] Comment on above: Performed By: #### R SV, INFLUAB #### [facility] [address] [place] [address] Dr. Wilmer Francis Platelet mean volume (Bld) [Entitic vol] 9.2 fL Critically low 9.5-13.5 [facility] Comment on above: Performed By: #### R SV, INFLUAB #### [facility] [address] [place] [address] Dr. Wilmer Francis PLT 318 103/ul Normal 150-450 [facility] Comment on above: Performed By: #### R SV, INFLUAB #### [facility] [address] [place] [address] Dr. Wilmer Francis RBC 4.09 106/ul Critically low 4.70-6.10 [facility] Comment on above: Performed By: #### R SV, INFLUAB #### [facility] [address] [place] [address] Dr. Wilmer Francis WBC 19.2 103/ul Critically high 4.0-11.0 [facility] Comment on above: Performed By: #### R SV, INFLUAB #### [facility] [address] [place] [address] Dr. Wilmer Francis CRPon 06-21-2022 CRP 7.3 mg/dL Critically high <=1.0 [facility] Comment on above: Performed By: #### T SH, CRP #### [facility] [address] [place] [address] Dr. Wilmer Francis OSMOLALITYon 06-21-2022 Osmolality [Osmolality] 254 mosm/kg Critically low 280-301 [facility] Comment on above: Performed By: #### T OLIVIA, CRP #### [facility] [address] [address] [address] Wilmer Francis OSMOLALITY URINEon 2 Osmolality, Urine 558 mOsmol/kg Normal [facility] Comment on above: Result Comment: 24 h r : 300 - 900 Random: 50 - 1400 After 12hr fluid restriction: >850 Performed By: #### B BOILER TUBE BLOWER #### [facility] [address] [address] [address] Wilmer Francis PROF CHEM 8 (BAS METB)on Anion gap [Moles/Vol] 10.6 mmol/L Normal [facility] Comment on above: Performed By: #### T OLIVIA, CRP #### [facility] [address] [address] [address] Wilmer Francis Calcium [Mass/Vol] 9.1 mg/dL Normal 8.5-10.1 [facility] Comment on above: Performed By: #### T OLIVIA, CRP #### [facility] [address] [address] [address] Wilmer Francis Chloride [Moles/Vol] 94 mmol/L Critically low 98-107 [facility] Comment on above: Performed By: #### T OLIVIA, CRP #### [facility] [address] [address] [address] Wilmer Francis CO2 [Moles/Vol] 28.5 mmol/L Normal 21.0-32.0 [facility] Comment on above: Performed By: #### T OLIVIA, CRP #### [facility] [address] [address] [address] Wilmer Francis Creatinine [Mass/Vol] 1.11 mg/dL Normal 0.70-1.30 [facility] Comment on above: Performed By: #### T OLIVIA, CRP #### [facility] [address] [address] [address] Wilmer Francis EGFR-AF JAPANESE >60 Normal >=60 [facility] Comment on above: Performed By: #### T SH, CRP #### [facility] [address] [address] [address] Wilmer Francis EGFR-NON AF JAPANESE >60 Normal >=60 [facility] Comment on above: Performed By: #### T SH, CRP #### [facility] [address] [address] [address] Wilmer Francis Glucose [Mass/Vol] 294 mg/dL Critically high 74-106 [facility] Comment on above: Performed By: #### T SH, CRP #### [facility] [address] [address] [address] Wilmer Francis Potassium [Moles/Vol] 4.1 mmol/L Normal 3.5-5.1 [facility] Comment on above: Performed By: #### T SH, CRP #### [facility] [address] [address] [address] Wilmer Francis Sodium [Moles/Vol] 129 mmol/L Critically low 136-145 [facility] Comment on above: Performed By: #### T SH, CRP #### [facility] [address] [address] [address] Wilmer Francis Urea nitrogen [Mass/Vol] 27.0 mg/dL Critically high 7.0-18.0 [facility] Comment on above: Performed By: #### T SH, CRP #### [facility] [address] [address] [address] Wilmer Francis Urea nitrogen/Creatinine [Mass ratio] 24.3 mg/mg Normal [facility] Comment on above: Performed By: #### T SH, CRP #### [facility] [address] [address] [address] Wilemr Francis Anion gap [Moles/Vol] 11.7 mmol/L Normal [facility] Comment on above: Performed By: #### B MP #### [facility] [address] [address] [address] Wilmer Francis Calcium [Mass/Vol] 8.7 mg/dL Normal 8.5-10.1 [facility] Comment on above: Performed By: #### B MP #### [facility] [address] [address] [address] Wilmer Francis Chloride [Moles/Vol] 93 mmol/L Critically low 98-107 [facility] Comment on above: Performed By: #### B MP #### [facility] [address] [address] [address] Wilmer Francis CO2 [Moles/Vol] 25.4 mmol/L Normal 21.0-32.0 [facility] Comment on above: Performed By: #### B MP #### [facility] [address] [address] [address] Wilmer Francis Creatinine [Mass/Vol] 1.37 mg/dL Critically high 0.70-1.30 [facility] Comment on above: Performed By: #### B MP #### [facility] [address] [address] [address] Wilmer Francis EGFR-AF JAPANESE >60 Normal >=60 [facility] Comment on above: Performed By: #### B MP #### [facility] [address] [address] [address] Wilmer Francis EGFR-NON AF JAPANESE 52 mL/min/1.73m2 Critically low >=60 [facility] Comment on above: Performed By: #### B MP #### [facility] [address] [address] [address] Wilmer Francis Glucose [Mass/Vol] 398 mg/dL Critically high 74-106 [facility] Comment on above: Performed By: #### B MP #### [facility] [address] [address] [address] Wilmer Francis Potassium [Moles/Vol] 4.1 mmol/L Normal 3.5-5.1 [facility] Comment on above: Performed By: #### B MP #### [facility] [address] [address] [address] Wilmer Francis Sodium [Moles/Vol] 126 mmol/L Critically low 136-145 [facility] Comment on above: Performed By: #### B MP #### [facility] [address] [address] [address] Wilmer Francis Urea nitrogen [Mass/Vol] 28.0 mg/dL Critically high 7.0-18.0 [facility] Comment on above: Performed By: #### B MP #### [facility] [address] [place] [address] Dr. Wilmer Francis Urea nitrogen/Creatinine [Mass ratio] 20.4 mg/mg Normal [facility] Comment on above: Performed By: #### B MP #### [facility] [address] [place] [address] Dr. Wilmer Francis SED RATE WESTERGRENon 2021 SED RATE 109 mm/hr Critically high <=20 [facility] Comment on above: Performed By: #### S EDR #### [facility] [address] [place] [address] Dr. Wilmer Francis CBC AUTO DIFFon 06-20-2022 BASO # 0.0 103/ul Normal 0.0-0.1 [facility] Comment on above: Performed By: #### T SH, CRP #### [facility] [address] [place] [address] Dr. Wilmer Francis Basophils/100 WBC (Bld) 0.1 % Critically low 0.2-2.0 [facility] Comment on above: Performed By: #### T SH, CRP #### [facility] [address] [place] [address] Dr. Wilmer Francis EO # 0.0 103/ul Normal 0.0-0.7 [facility] Comment on above: Performed By: #### T SH, CRP #### [facility] [address] [place] [address] Dr. Wilmer Francis Eosinophils/100 WBC (Bld) 0.0 % Critically low 0.9-7.0 [facility] Comment on above: Performed By: #### T SH, CRP #### [facility] [address] [place] [address] Dr. Wilmer Francis Erythrocyte distribution width (RBC) [Ratio] 12.2 % Normal 11.0-15.0 [facility] Comment on above: Performed By: #### T SH, CRP #### [facility] [address] [place] [address] Dr. Wilmer Francis Hematocrit (Bld) [Volume fraction] 37.3 % Critically low 42.0-54.0 [facility] Comment on above: Performed By: #### T SH, CRP #### [facility] [address] [place] [address] Dr. Wilmer Francis Hemoglobin (Bld) [Mass/Vol] 12.7 g/dL Critically low 14.0-18.0 [facility] Comment on above: Performed By: #### T SH, CRP #### [facility] [address] [place] [address] Dr. Wilmer Francis IG # 0.11 10e3/ul Critically high 0.00-0.03 [facility] Comment on above: Performed By: #### T SH, CRP #### [facility] [address] [place] [address] Dr. Wilmer Francis IG % 0.5 % Normal 0.0-0.5 [facility] Comment on above: Performed By: #### T SH, CRP #### [facility] [address] [place] [address] Dr. Wilmer Francis LYMPH # 0.9 103/ul Critically low 1.2-3.8 [facility] Comment on above: Performed By: #### T SH, CRP #### [facility] [address] [place] [address] Dr. Wilmer Francis Lymphocytes/100 WBC (Bld) 4.3 % Critically low 20.5-60.0 [facility] Comment on above: Performed By: #### T SH, CRP #### [facility] [address] [place] [address] Dr. Wilmer Francis MANUAL DIFF REQ NO Normal [facility] Comment on above: Performed By: #### T SH, CRP #### [facility] [address] [place] [address] Dr. Wilmer Francis MCH (RBC) [Entitic mass] 30.3 pg Normal 25.9-34.0 [facility] Comment on above: Performed By: #### T SH, CRP #### [facility] [address] [place] [address] Dr. Wilmer Francis MCHC (RBC) [Mass/Vol] 34.0 g/dL Normal 29.9-35.2 [facility] Comment on above: Performed By: #### T SH, CRP #### [facility] [address] [place] [address] Dr. Wilmer Francis MCV (RBC) [Entitic vol] 89.0 fL Normal 80.0-94.0 [facility] Comment on above: Performed By: #### T SH, CRP #### [facility] [address] [place] [address] Dr. Wilmer Francis MONO # 1.4 103/ul Critically high 0.3-0.8 [facility] Comment on above: Performed By: #### T SH, CRP #### [facility] [address] [place] [address] Dr. Wilmer Francis Monocytes/100 WBC (Bld) 6.2 % Normal 1.7-12.0 [facility] Comment on above: Performed By: #### T SH, CRP #### [facility] [address] [place] [address] Dr. Wilmer Francis NEUT # 19.6 103/ul Critically high 1.4-6.5 [facility] Comment on above: Performed By: #### T SH, CRP #### [facility] [address] [place] [address] Dr. Wilmer Francis Neutrophils/100 WBC (Bld) 88.9 % Critically high 43.0-75.0 [facility] Comment on above: Performed By: #### T SH, CRP #### [facility] [address] [place] [address] Dr. Wilmer Francis Platelet mean volume (Bld) [Entitic vol] 9.3 fL Critically low 9.5-13.5 [facility] Comment on above: Performed By: #### T SH, CRP #### [facility] [address] [place] [address] Dr. Wilmer Francis PLT 311 103/ul Normal 150-450 [facility] Comment on above: Performed By: #### T SH, CRP #### [facility] [address] [place] [address] Dr. Wilmer Francis RBC 4.19 106/ul Critically low 4.70-6.10 [facility] Comment on above: Performed By: #### T SH, CRP #### [facility] [address] [place] [address] Dr. Wilmer Francis WBC 22.0 103/ul Critically high 4.0-11.0 [facility] Comment on above: Performed By: #### T SH, CRP #### [facility] [address] [place] [address] Dr. Wilmer Francis CRPon 06-20-2022 CRP 16.1 mg/dL Critically high <=1.0 [facility] Comment on above: Performed By: #### S EDR #### [facility] [address] [place] [address] Dr. Wilmer Francis PROF CHEM 8 (BAS METB)on Anion gap [Moles/Vol] 14.0 mmol/L Normal [facility] Comment on above: Performed By: #### B BOILER TUBE BLOWER #### [facility] [address] [place] [address] Dr. Wilmer Francis Calcium [Mass/Vol] 9.0 mg/dL Normal 8.5-10.1 [facility] Comment on above: Performed By: #### B BOILER TUBE BLOWER #### [facility] [address] [place] [address] Dr. Wilmer Francis Chloride [Moles/Vol] 90 mmol/L Critically low 98-107 [facility] Comment on above: Performed By: #### B BOILER TUBE BLOWER #### [facility] [address] [place] [address] Dr. Wilmer Francis CO2 [Moles/Vol] 26.3 mmol/L Normal 21.0-32.0 [facility] Comment on above: Performed By: #### B BOILER TUBE BLOWER #### [facility] [address] [place] [address] Dr. Wilmer Francis Creatinine [Mass/Vol] 1.24 mg/dL Normal 0.70-1.30 [facility] Comment on above: Performed By: #### B BOILER TUBE BLOWER #### [facility] [address] [place] [address] Dr. Wilmer Francis EGFR-AF JAPANESE >60 Normal >=60 [facility] Comment on above: Performed By: #### B BOILER TUBE BLOWER #### [facility] [address] [place] [address] Dr. Wilmer Francis EGFR-NON AF JAPANESE 58 mL/min/1.73m2 Critically low >=60 [facility] Comment on above: Performed By: #### B BOILER TUBE BLOWER #### [facility] [address] [place] [address] Dr. Wilmer Francis Glucose [Mass/Vol] 274 mg/dL Critically high 74-106 [facility] Comment on above: Performed By: #### B BOILER TUBE BLOWER #### [facility] [address] [place] [address] Dr. Wilmer Francis Potassium [Moles/Vol] 4.2 mmol/L Normal 3.5-5.1 [facility] Comment on above: Performed By: #### B BOILER TUBE BLOWER #### [facility] [address] [place] [address] Dr. Wilmer Francis Sodium [Moles/Vol] 126 mmol/L Critically low 136-145 [facility] Comment on above: Performed By: #### B BOILER TUBE BLOWER #### [facility] [address] [place] [address] Dr. Wilmer Francis Urea nitrogen [Mass/Vol] 20.0 mg/dL Critically high 7.0-18.0 [facility] Comment on above: Performed By: #### B BOILER TUBE BLOWER #### [facility] [address] [place] [address] Dr. Wilmer Francis Urea nitrogen/Creatinine [Mass ratio] 16.1 mg/mg Normal [facility] Comment on above: Performed By: #### B BOILER TUBE BLOWER #### [facility] [address] [place] [address] Dr. Wilmer Francis Anion gap [Moles/Vol] 9.4 mmol/L Normal [facility] Comment on above: Performed By: #### S EDR #### [facility] [address] [address] [address] Wilmer Francis Calcium [Mass/Vol] 8.9 mg/dL Normal 8.5-10.1 [facility] Comment on above: Performed By: #### S EDR #### [facility] [address] [address] [address] Wilmer Francis Chloride [Moles/Vol] 90 mmol/L Critically low 98-107 [facility] Comment on above: Performed By: #### S EDR #### [facility] [address] [place] [address] Dr. Wilmer Francis CO2 [Moles/Vol] 28.8 mmol/L Normal 21.0-32.0 [facility] Comment on above: Performed By: #### S EDR #### [facility] [address] [address] [address] Wilmer Francis Creatinine [Mass/Vol] 0.93 mg/dL Normal 0.70-1.30 [facility] Comment on above: Performed By: #### S EDR #### [facility] [address] [place] [address] Dr. Wilmer Francis EGFR-AF JAPANESE >60 Normal >=60 [facility] Comment on above: Performed By: #### S EDR #### [facility] [address] [address] [address] Wilmer Francis EGFR-NON AF JAPANESE >60 Normal >=60 [facility] Comment on above: Performed By: #### S EDR #### [facility] [address] [address] [address] Wilmer Francis Glucose [Mass/Vol] 243 mg/dL Critically high 74-106 [facility] Comment on above: Performed By: #### S EDR #### [facility] [address] [place] [address] Dr. Wilmer Francis Potassium [Moles/Vol] 4.2 mmol/L Normal 3.5-5.1 [facility] Comment on above: Performed By: #### S EDR #### [facility] [address] [address] [address] Wilmer Francis Sodium [Moles/Vol] 124 mmol/L Critically low 136-145 [facility] Comment on above: Performed By: #### S EDR #### [facility] [address] [address] [address] Wilmer Francis Urea nitrogen [Mass/Vol] 21.0 mg/dL Critically high 7.0-18.0 [facility] Comment on above: Performed By: #### S EDR #### [facility] [address] [address] [address] Wilmer Francis Urea nitrogen/Creatinine [Mass ratio] 22.6 mg/mg Normal [facility] Comment on above: Performed By: #### S EDR #### [facility] [address] [address] [address] Wilmer Francis Anion gap [Moles/Vol] 10.8 mmol/L Normal [facility] Comment on above: Performed By: #### T SH, CRP #### [facility] [address] [address] [address] Wilmer Francis Calcium [Mass/Vol] 8.6 mg/dL Normal 8.5-10.1 [facility] Comment on above: Performed By: #### T SH, CRP #### [facility] [address] [address] [address] Wilmer Francis Chloride [Moles/Vol] 88 mmol/L Critically low 98-107 [facility] Comment on above: Performed By: #### T SH, CRP #### [facility] [address] [address] [address] Wilmer Francis CO2 [Moles/Vol] 27.3 mmol/L Normal 21.0-32.0 [facility] Comment on above: Performed By: #### T SH, CRP #### [facility] [address] [address] [address] Wilmer Francis Creatinine [Mass/Vol] 1.19 mg/dL Normal 0.70-1.30 [facility] Comment on above: Performed By: #### T SH, CRP #### [facility] [address] [address] [address] Wilmer Francis EGFR-AF JAPANESE >60 Normal >=60 [facility] Comment on above: Performed By: #### T SH, CRP #### [facility] [address] [address] [address] Wilmer Francis EGFR-NON AF JAPANESE >60 Normal >=60 [facility] Comment on above: Performed By: #### T SH, CRP #### [facility] [address] [address] [address] Wilmer Francis Glucose [Mass/Vol] 378 mg/dL Critically high 74-106 [facility] Comment on above: Performed By: #### T SH, CRP #### [facility] [address] [address] [address] Wilmer Francis Potassium [Moles/Vol] 4.1 mmol/L Normal 3.5-5.1 [facility] Comment on above: Performed By: #### T SH, CRP #### [facility] [address] [address] [address] Wilmer Francis Sodium [Moles/Vol] 122 mmol/L Critically low 136-145 [facility] Comment on above: Performed By: #### T SH, CRP #### [facility] [address] [address] [address] Wilmer Francis Urea nitrogen [Mass/Vol] 21.0 mg/dL Critically high 7.0-18.0 [facility] Comment on above: Performed By: #### T SH, CRP #### [facility] [address] [address] [address] Wilmer Francis Urea nitrogen/Creatinine [Mass ratio] 17.6 mg/mg Normal [facility] Comment on above: Performed By: #### T SH, CRP #### [facility] [address] [address] [address] Wilmer Francis PROTEIN ELECTROPHERESISon Albumin [Mass/Vol] 3.4 g/dL Normal 2.9-4.4 [facility] Comment on above: Performed By: #### P RTELEC #### [facility] [address] [place] [address] Dr. Wilmer Francis Albumin/Globulin [Mass ratio] 1.1 {ratio} Normal 0.7-1.7 [facility] Comment on above: Performed By: #### P RTELEC #### [facility] [address] [place] [address] Dr. Wilmer Francis Ojftl-9-Bawvmrtw 0.4 g/dL Normal 0.0-0.4 [facility] Comment on above: Performed By: #### P RTELEC #### [facility] [address] [place] [address] Dr. Wilmer Francis Nyqkh-6-Yaudtrdt 1.0 g/dL Normal 0.4-1.0 [facility] Comment on above: Performed By: #### P RTELEC #### [facility] [address] [place] [address] Dr. Wilmer Francis Beta Globulin 1.0 g/dL Normal 0.7-1.3 [facility] Comment on above: Performed By: #### P RTELEC #### [facility] [address] [place] [address] Dr. Wilmer Francis Gamma Globulin 0.7 g/dL Normal 0.4-1.8 [facility] Comment on above: Performed By: #### P RTELEC #### [facility] [address] [place] [address] Dr. Wilmer Francis Globulin (S) [Mass/Vol] 3.1 g/dL Normal 2.2-3.9 [facility] Comment on above: Performed By: #### P RTELEC #### [facility] [address] [place] [address] Dr. Wilmer Francis M-Antoine Comment: Normal Not Observed [facility] Comment on above: Result Comment: SPE shows asymmetrical beta. Performed By: #### P RTELEC #### [facility] [address] [place] [address] Dr. Wilmer Francis PDF . Normal [facility] Comment on above: Performed By: #### P RTELEC #### [facility] [address] [address] [address] Wilmer Francis Please note: Comment Normal [facility] Comment on above: Result Comment: Prot ein electrophoresis scan will follow via computer, mail, or mold tooling technician delivery. Performed By: #### P RTELEC #### [facility] [address] [place] [address] Dr. Wilmer Francis Protein [Mass/Vol] 6.5 g/dL Normal 6.0-8.5 [facility] Comment on above: Performed By: #### P RTELEC #### [facility] [address] [place] [address] Dr. Wilmer Francis RHEUMATOID FACTORon 06-20-20 22 RA Latex Turbid. 43.8 IU/mL Critically high <14.0 [facility] Comment on above: Performed By: #### T SH, CRP #### [facility] [address] [place] [address] Dr. Wilmer Farncis SED RATE WESTERGREN 2021 SED RATE 122 mm/hr Critically high <=20 [facility] Comment on above: Performed By: #### B BOILER TUBE BLOWER #### [facility] [address] [place] [address] Dr. Wilmer Francis XR CHEST 2 Von [...] KEVIN STANLEY Date: 2022-06-20 12:34 Normal [facility] BNPon 06-19-2022 Natriuretic peptide B (Bld) [Mass/Vol] 246.0 pg/mL Normal <=900.0 [facility] Comment on above: Performed By: #### B BOILER TUBE BLOWER #### [facility] [address] [address] [address] Wilmer Francis CARDIAC BIPIN 3-6on 2 CK [Catalytic activity/Vol] 76 U/L Normal 39-308 [facility] Comment on above: Performed By: #### T SH, CRP #### [facility] [address] [address] [address] Wilmer Francis CK.MB [Mass/Vol] 2.18 ng/mL Normal <=3.60 [facility] Comment on above: Performed By: #### T SH, CRP #### [facility] [address] [place] [address] Dr. Wilmer Francis HSTROP 5.1 pg/mL Normal 4.0-76.1 [facility] Comment on above: Result Comment: CUT- OFF POINTS HAVE BEEN ESTABLISHED BASED ON THE FOURTH UNIVERSAL DEFINITIONS OF MYOCARDIAL INFARCTION. THE UPPER REFERENCE LIMIT (URL) OF TROPONIN, DEFINED THE 99TH PERCENTILE OF cTnI DISTRIBUTION IN A REFERENCE POPULATION, HAS BEEN CONFIRMED THE DECISION THRESHOLD FOR NE DIAGNOSIS. Performed By: #### T SH, CRP #### [facility] [address] [place] [address] Dr. Wilmer Francis CK [Catalytic activity/Vol] 90 U/L Normal 39-308 [facility] Comment on above: Performed By: #### P RTELEC #### [facility] [address] [place] [address] Dr. Wilmer Francis CK.MB [Mass/Vol] 1.91 ng/mL Normal <=3.60 [facility] Comment on above: Performed By: #### P RTELEC #### [facility] [address] [place] [address] Dr. Wilmer Francis HSTROP 4.8 pg/mL Normal 4.0-76.1 [facility] Comment on above: Result Comment: CUT- OFF POINTS HAVE BEEN ESTABLISHED BASED ON THE FOURTH UNIVERSAL DEFINITIONS OF MYOCARDIAL INFARCTION. THE UPPER REFERENCE LIMIT (URL) OF TROPONIN, DEFINED THE 99TH PERCENTILE OF cTnI DISTRIBUTION IN A REFERENCE POPULATION, HAS BEEN CONFIRMED THE DECISION THRESHOLD FOR NE DIAGNOSIS. Performed By: #### P RTELEC #### [facility] [address] [place] [address] Dr. Wilmer Francis CARDIAC BIIPN ADMITon 022 CK [Catalytic activity/Vol] 86 U/L Normal 39-308 [facility] Comment on above: Performed By: #### S EDR #### [facility] [address] [place] [address] Dr. Wilmer Francis CK.MB [Mass/Vol] 1.97 ng/mL Normal <=3.60 [facility] Comment on above: Performed By: #### S EDR #### [facility] [address] [place] [address] Dr. Wilmer Francis HSTROP 6.2 pg/mL Normal 4.0-76.1 [facility] Comment on above: Result Comment: CUT- OFF POINTS HAVE BEEN ESTABLISHED BASED ON THE FOURTH UNIVERSAL DEFINITIONS OF MYOCARDIAL INFARCTION. THE UPPER REFERENCE LIMIT (URL) OF TROPONIN, DEFINED THE 99TH PERCENTILE OF cTnI DISTRIBUTION IN A REFERENCE POPULATION, HAS BEEN CONFIRMED THE DECISION THRESHOLD FOR NE DIAGNOSIS. Performed By: #### S EDR #### [facility] [address] [place] [address] Dr. Wilmer Francis CHANTE 59 ng/mL Normal 16-96 [facility] Comment on above: Performed By: #### S EDR #### [facility] [address] [place] [address] Dr. Wilmer Francis CBC AUTO DIFFon 06-19-2022 BASO # 0.0 103/ul Normal 0.0-0.1 [facility] Comment on above: Performed By: #### B BOILER TUBE BLOWER #### [facility] [address] [place] [address] Dr. Wilmer Francis Basophils/100 WBC (Bld) 0.1 % Critically low 0.2-2.0 [facility] Comment on above: Performed By: #### B BOILER TUBE BLOWER #### [facility] [address] [place] [address] Dr. Wilmer Francis EO # 0.0 103/ul Normal 0.0-0.7 [facility] Comment on above: Performed By: #### B BOILER TUBE BLOWER #### [facility] [address] [address] [address] Wilmer Francis Eosinophils/100 WBC (Bld) 0.0 % Critically low 0.9-7.0 [facility] Comment on above: Performed By: #### B BOILER TUBE BLOWER #### [facility] [address] [place] [address] Dr. Wilmer Francis Erythrocyte distribution width (RBC) [Ratio] 12.2 % Normal 11.0-15.0 [facility] Comment on above: Performed By: #### B BOILER TUBE BLOWER #### [facility] [address] [place] [address] Dr. Wilmer Francis Hematocrit (Bld) [Volume fraction] 38.3 % Critically low 42.0-54.0 [facility] Comment on above: Performed By: #### B BOILER TUBE BLOWER #### [facility] [address] [place] [address] Dr. Wilmer Francis Hemoglobin (Bld) [Mass/Vol] 13.6 g/dL Critically low 14.0-18.0 [facility] Comment on above: Performed By: #### B BOILER TUBE BLOWER #### [facility] [address] [place] [address] Dr. Wilmer Francis IG # 0.10 10e3/ul Critically high 0.00-0.03 [facility] Comment on above: Performed By: #### B BOILER TUBE BLOWER #### [facility] [address] [place] [address] Dr. Wilmer Francis IG % 0.7 % Critically high 0.0-0.5 [facility] Comment on above: Performed By: #### B BOILER TUBE BLOWER #### [facility] [address] [place] [address] Dr. Wilmer Francis LYMPH # 0.8 103/ul Critically low 1.2-3.8 [facility] Comment on above: Performed By: #### B BOILER TUBE BLOWER #### [facility] [address] [place] [address] Dr. Wilmer Francis Lymphocytes/100 WBC (Bld) 5.0 % Critically low 20.5-60.0 [facility] Comment on above: Performed By: #### B BOILER TUBE BLOWER #### [facility] [address] [place] [address] Dr. Wilmer Francis MANUAL DIFF REQ NO Normal [facility] Comment on above: Performed By: #### B BOILER TUBE BLOWER #### [facility] [address] [place] [address] Dr. Wilmer Francis MCH (RBC) [Entitic mass] 30.8 pg Normal 25.9-34.0 [facility] Comment on above: Performed By: #### B BOILER TUBE BLOWER #### [facility] [address] [place] [address] Dr. Wilmer Francis MCHC (RBC) [Mass/Vol] 35.5 g/dL Critically high 29.9-35.2 [facility] Comment on above: Performed By: #### B BOILER TUBE BLOWER #### [facility] [address] [place] [address] Dr. Wilmer Francis MCV (RBC) [Entitic vol] 86.8 fL Normal 80.0-94.0 [facility] Comment on above: Performed By: #### B BOILER TUBE BLOWER #### [facility] [address] [place] [address] Dr. Wilmer Francis MONO # 0.7 103/ul Normal 0.3-0.8 [facility] Comment on above: Performed By: #### B BOILER TUBE BLOWER #### [facility] [address] [place] [address] Dr. Wilmer Francis Monocytes/100 WBC (Bld) 4.2 % Normal 1.7-12.0 [facility] Comment on above: Performed By: #### B BOILER TUBE BLOWER #### [facility] [address] [place] [address] Dr. Wilmer Francis NEUT # 13.8 103/ul Critically high 1.4-6.5 [facility] Comment on above: Performed By: #### B BOILER TUBE BLOWER #### [facility] [address] [place] [address] Dr. Wilmer Francis Neutrophils/100 WBC (Bld) 90.0 % Critically high 43.0-75.0 [facility] Comment on above: Performed By: #### B BOILER TUBE BLOWER #### [facility] [address] [place] [address] Dr. Wilmer Francis Platelet mean volume (Bld) [Entitic vol] 9.0 fL Critically low 9.5-13.5 [facility] Comment on above: Performed By: #### B BOILER TUBE BLOWER #### [facility] [address] [place] [address] Dr. Wilmer Francis PLT 298 103/ul Normal 150-450 [facility] Comment on above: Performed By: #### B BOILER TUBE BLOWER #### [facility] [address] [address] [address] Wilmer Francis RBC 4.41 106/ul Critically low 4.70-6.10 [facility] Comment on above: Performed By: #### B BOILER TUBE BLOWER #### [facility] [address] [place] [address] Dr. Wilmer Francis WBC 15.3 103/ul Critically high 4.0-11.0 [facility] Comment on above: Performed By: #### B BOILER TUBE BLOWER #### [facility] [address] [place] [address] Dr. Wilmer Francis CBC W MANUAL DIFFon 06-19-20 22 ATYPICAL LYMPH # Normal [facility] Comment on above: Performed By: #### S EDR #### [facility] [address] [place] [address] Dr. Wilmer Francis ATYPICAL LYMPH % Normal [facility] Comment on above: Performed By: #### S EDR #### [facility] [address] [place] [address] Dr. Wilmer Francis BAND # 0.0 103/ul Normal 0.0-0.3 [facility] Comment on above: Performed By: #### S EDR #### [facility] [address] [place] [address] Dr. Wilmer Francis BAND % 0 % Normal 0-5 [facility] Comment on above: Performed By: #### S EDR #### [facility] [address] [place] [address] Dr. Wilmer Francis BASOM # 0.00 103/ul Normal 0.00-0.10 [facility] Comment on above: Performed By: #### S EDR #### [facility] [address] [place] [address] Dr. Wilmer Francis BASOM % 0.0 % Critically low 0.2-2.0 [facility] Comment on above: Performed By: #### S EDR #### [facility] [address] [place] [address] Dr. Wilmer Francis BLAST # Normal [facility] Comment on above: Performed By: #### S EDR #### [facility] [address] [place] [address] Dr. Wilmer Francis BLAST % Normal [facility] Comment on above: Performed By: #### S EDR #### [facility] [address] [place] [address] Dr. Wilmer Francis CORRECTED WBC Normal 4.0-11.0 [facility] Comment on above: Performed By: #### S EDR #### [facility] [address] [place] [address] Dr. Wilmer Francis EOS # 0.15 103/ul Normal 0.00-0.70 [facility] Comment on above: Performed By: #### S EDR #### [facility] [address] [place] [address] Dr. Wilmer Francis EOS% 1.0 % Normal 0.9-7.0 [facility] Comment on above: Performed By: #### S EDR #### [facility] [address] [place] [address] Dr. Wilmer Francis HCT 38.7 % Critically low 42.0-54.0 [facility] Comment on above: Performed By: #### S EDR #### [facility] [address] [place] [address] Dr. Wilmer Francis HGB 13.8 g/dl Critically low 14.0-18.0 [facility] Comment on above: Performed By: #### S EDR #### [facility] [address] [place] [address] Dr. Wilmer Francis LYMPHM # 1.62 103/ul Normal 1.20-3.80 [facility] Comment on above: Performed By: #### S EDR #### [facility] [address] [address] [address] Wilmer Francis LYMPHM% 11.0 % Critically low 20.5-60.0 [facility] Comment on above: Performed By: #### S EDR #### [facility] [address] [place] [address] Dr. Wilmer Francis MCH 30.5 pg Normal 25.9-34.0 [facility] Comment on above: Performed By: #### S EDR #### [facility] [address] [address] [address] Wilmer Francis MCHC 35.7 g/dl Critically high 29.9-35.2 [facility] Comment on above: Performed By: #### S EDR #### [facility] [address] [place] [address] Dr. Wilmer Francis MCV 85.4 fL Normal 80.0-94.0 [facility] Comment on above: Performed By: #### S EDR #### [facility] [address] [place] [address] Dr. Wilmer Francis METAMYELOCYTE # Normal [facility] Comment on above: Performed By: #### S EDR #### [facility] [address] [place] [address] Dr. Wilmer Francis METAMYELOCYTE % Normal [facility] Comment on above: Performed By: #### S EDR #### [facility] [address] [address] [address] Wilmer Francis MONOM# 1.18 103/ul Critically high 0.30-0.80 [facility] Comment on above: Performed By: #### S EDR #### [facility] [address] [place] [address] Dr. Wilmer Francis MONOM% 8.0 % Normal 1.7-12.0 [facility] Comment on above: Performed By: #### S EDR #### [facility] [address] [place] [address] Dr. Wilmer Francis MPV 8.8 fL Critically low 9.5-13.5 [facility] Comment on above: Performed By: #### S EDR #### [facility] [address] [place] [address] Dr. Wilmer Francis MYELOCYTE # Normal [facility] Comment on above: Performed By: #### S EDR #### [facility] [address] [address] [address] Wilmer Francis MYELOCYTE % Normal [facility] Comment on above: Performed By: #### S EDR #### [facility] [address] [address] [address] Wilmer Francis NRBC Normal [facility] Comment on above: Performed By: #### S EDR #### [facility] [address] [place] [address] Dr. Wilmer Francis PLT 302 103/ul Normal 150-450 [facility] Comment on above: Performed By: #### S EDR #### [facility] [address] [place] [address] Dr. Wilmer Francis RBC 4.53 106/ul Critically low 4.70-6.10 [facility] Comment on above: Performed By: #### S EDR #### [facility] [address] [place] [address] Dr. Wilmer Francis RDW 12.1 % Normal 11.0-15.0 [facility] Comment on above: Performed By: #### S EDR #### [facility] [address] [place] [address] Dr. Wilmer Francis SEG # 11.76 103/ul Critically high 1.40-6.50 [facility] Comment on above: Performed By: #### S EDR #### [facility] [address] [place] [address] Dr. Wilmer Francis SEG % 80.0 % Critically high 43.0-75.0 [facility] Comment on above: Performed By: #### S EDR #### [facility] [address] [place] [address] Dr. Wilmer Francis WBC 14.7 103/ul Critically high 4.0-11.0 [facility] Comment on above: Performed By: #### S EDR #### [facility] [address] [place] [address] Dr. Wilmer Francis CREATININE URINEon URINE CREAT 179.57 mg/dL Normal 20.00-300.00 [facility] Comment on above: Performed By: #### S EDR #### [facility] [address] [place] [address] Dr. Wilmer Francis CRPon 06-19-2022 CRP 7.0 mg/dL Critically high <=1.0 [facility] Comment on above: Performed By: #### T SH, CRP #### [facility] [address] [place] [address] Dr. Wilmer Francis CRP 3.9 mg/dL Critically high <=1.0 [facility] Comment on above: Performed By: #### S EDR #### [facility] [address] [place] [address] Dr. Wilmer Francis Covid-19 PCR (CVDTB)on 06-06 SARS-CoV-2 (COVID-19) RNA ALAINA+probe Ql (Unsp spec) Not detected Normal NOT DETECTED [facility] Comment on above: Result Comment: When [...] for this test is supported by the [place] of [employer] and [employer] Service's declaration that [...] Performed By: #### T SH, CRP #### [facility] [address] [place] [address] Dr. Wilemr Francis INFLUENZA A AND B AGon 06-19 INFLUENZA A AG Negative Normal NEGATIVE SEE COMMENT [facility] Comment on above: Performed By: #### R SV, INFLUAB #### [facility] [address] [place] [address] Dr. Wilmer Francis INFLUENZA B AG Negative Normal NEGATIVE SEE COMMENT [facility] Comment on above: Performed By: #### R SV, INFLUAB #### [facility] [address] [place] [address] Dr. Wilmer Francis INTERNAL CONTROLS Within Normal Limits Normal Within Normal Limits [facility] Comment on above: Performed By: #### R SV, INFLUAB #### [facility] [address] [place] [address] Dr. Wilmer Francis LACTATE/LACTIC ACIDon 2021 Lactate [Moles/Vol] 1.0 mmol/L Normal 0.4-1.9 [facility] Comment on above: Performed By: #### S EDR #### [facility] [address] [place] [address] Dr. Wilmer Francis Lactate [Moles/Vol] 0.9 mmol/L Normal 0.4-1.9 [facility] Comment on above: Performed By: #### B BOILER TUBE BLOWER #### [facility] [address] [place] [address] Dr. Wilmer Francis MICROALBUMIN, RAND URon 06-06 mALB 1.6 mg/L Normal <=30.0 [facility] Comment on above: Performed By: #### S EDR #### [facility] [address] [place] [address] Dr. Wilmer Francis PROF CHEM 8 (BAS METB)on Anion gap [Moles/Vol] 13.7 mmol/L Normal [facility] Comment on above: Performed By: #### B MP #### [facility] [address] [place] [address] Dr. Wilmer Francis Calcium [Mass/Vol] 8.9 mg/dL Normal 8.5-10.1 [facility] Comment on above: Performed By: #### B MP #### [facility] [address] [place] [address] Dr. Wilmer Francis Chloride [Moles/Vol] 87 mmol/L Critically low 98-107 [facility] Comment on above: Performed By: #### B MP #### [facility] [address] [place] [address] Dr. Wilmer Francis CO2 [Moles/Vol] 28.6 mmol/L Normal 21.0-32.0 [facility] Comment on above: Performed By: #### B MP #### [facility] [address] [place] [address] Dr. Wilmer Francis Creatinine [Mass/Vol] 1.15 mg/dL Normal 0.70-1.30 [facility] Comment on above: Performed By: #### B MP #### [facility] [address] [place] [address] Dr. Wilmer Francis EGFR-AF JAPANESE >60 Normal >=60 [facility] Comment on above: Performed By: #### B MP #### [facility] [address] [place] [address] Dr. Wilmer Francis EGFR-NON AF JAPANESE >60 Normal >=60 [facility] Comment on above: Performed By: #### B MP #### [facility] [address] [place] [address] Dr. Wilmer Francis Glucose [Mass/Vol] 295 mg/dL Critically high 74-106 [facility] Comment on above: Performed By: #### B MP #### [facility] [address] [place] [address] Dr. Wilmer Francis Potassium [Moles/Vol] 4.2 mmol/L Normal 3.5-5.1 [facility] Comment on above: Performed By: #### B MP #### [facility] [address] [place] [address] Dr. Wilmer Francis Sodium [Moles/Vol] 124 mmol/L Critically low 136-145 [facility] Comment on above: Performed By: #### B MP #### [facility] [address] [address] [address] Wilmer Francis Urea nitrogen [Mass/Vol] 14.0 mg/dL Normal 7.0-18.0 [facility] Comment on above: Performed By: #### B MP #### [facility] [address] [address] [address] Wilmer Francis Urea nitrogen/Creatinine [Mass ratio] 12.2 mg/mg Normal [facility] Comment on above: Performed By: #### B MP #### [facility] [address] [address] [address] Wilmer Francis Anion gap [Moles/Vol] 11.1 mmol/L Normal [facility] Comment on above: Performed By: #### T SH, CRP #### [facility] [address] [address] [address] Wilmer Francis Calcium [Mass/Vol] 9.0 mg/dL Normal 8.5-10.1 [facility] Comment on above: Performed By: #### T SH, CRP #### [facility] [address] [address] [address] Wilmer Francis Chloride [Moles/Vol] 86 mmol/L Critically low 98-107 [facility] Comment on above: Performed By: #### T SH, CRP #### [facility] [address] [address] [address] Wilmer Francis CO2 [Moles/Vol] 28.2 mmol/L Normal 21.0-32.0 [facility] Comment on above: Performed By: #### T SH, CRP #### [facility] [address] [address] [address] Wilmer Francis Creatinine [Mass/Vol] 0.77 mg/dL Normal 0.70-1.30 [facility] Comment on above: Performed By: #### T SH, CRP #### [facility] [address] [address] [address] Wilmer Francis EGFR-AF JAPANESE >60 Normal >=60 [facility] Comment on above: Performed By: #### T SH, CRP #### [facility] [address] [address] [address] Wilmer Francis EGFR-NON AF JAPANESE >60 Normal >=60 [facility] Comment on above: Performed By: #### T SH, CRP #### [facility] [address] [address] [address] Wilmer Francis Glucose [Mass/Vol] 183 mg/dL Critically high 74-106 [facility] Comment on above: Performed By: #### T SH, CRP #### [facility] [address] [address] [address] Wilmer Francis Potassium [Moles/Vol] 4.3 mmol/L Normal 3.5-5.1 [facility] Comment on above: Performed By: #### T SH, CRP #### [facility] [address] [place] [address] Dr. Wilmer Francis Sodium [Moles/Vol] 122 mmol/L Critically low 136-145 [facility] Comment on above: Performed By: #### T SH, CRP #### [facility] [address] [place] [address] Dr. Wilmer Francis Urea nitrogen [Mass/Vol] 10.0 mg/dL Normal 7.0-18.0 [facility] Comment on above: Performed By: #### T SH, CRP #### [facility] [address] [place] [address] Dr. Wilmer Francis Urea nitrogen/Creatinine [Mass ratio] 13.0 mg/mg Normal [facility] Comment on above: Performed By: #### T SH, CRP #### [facility] [address] [place] [address] Dr. Wilmer Francis Anion gap [Moles/Vol] 9.0 mmol/L Normal [facility] Comment on above: Performed By: #### S EDR #### [facility] [address] [place] [address] Dr. Wilmer Francis Calcium [Mass/Vol] 9.2 mg/dL Normal 8.5-10.1 [facility] Comment on above: Performed By: #### S EDR #### [facility] [address] [address] [address] Wilmer Francis Chloride [Moles/Vol] 86 mmol/L Critically low 98-107 [facility] Comment on above: Performed By: #### S EDR #### [facility] [address] [address] [address] Wilmer Francis CO2 [Moles/Vol] 29.0 mmol/L Normal 21.0-32.0 [facility] Comment on above: Performed By: #### S EDR #### [facility] [address] [address] [address] Wilmer Francis Creatinine [Mass/Vol] 0.72 mg/dL Normal 0.70-1.30 [facility] Comment on above: Performed By: #### S EDR #### [facility] [address] [address] [address] Wilmer Francis EGFR-AF JAPANESE >60 Normal >=60 [facility] Comment on above: Performed By: #### S EDR #### [facility] [address] [address] [address] Wilmer Francis EGFR-NON AF JAPANESE >60 Normal >=60 [facility] Comment on above: Performed By: #### S EDR #### [facility] [address] [place] [address] Dr. Wilmer Francis Glucose [Mass/Vol] 135 mg/dL Critically high 74-106 [facility] Comment on above: Performed By: #### S EDR #### [facility] [address] [address] [address] Wilmer Francis Potassium [Moles/Vol] 4.0 mmol/L Normal 3.5-5.1 [facility] Comment on above: Performed By: #### S EDR #### [facility] [address] [address] [address] Wilmer Francis Sodium [Moles/Vol] 120 mmol/L Critically low 136-145 [facility] Comment on above: Performed By: #### S EDR #### [facility] [address] [address] [address] Wilmer Francis Urea nitrogen [Mass/Vol] 9.0 mg/dL Normal 7.0-18.0 [facility] Comment on above: Performed By: #### S EDR #### [facility] [address] [place] [address] Dr. Wilmer Francis Urea nitrogen/Creatinine [Mass ratio] 12.5 mg/mg Normal [facility] Comment on above: Performed By: #### S EDR #### [facility] [address] [place] [address] Dr. Wilmer Francis RSVon 06-19-2022 RSV AG Negative Normal NEGATIVE [facility] Comment on above: Performed By: #### R SV, INFLUAB #### [facility] [address] [place] [address] Dr. Wilmer Francis SED [facility] 2021 SED RATE 77 mm/hr Critically high <=20 [facility] Comment on above: Performed By: #### S EDR #### [facility] [address] [place] [address] Dr. Wilmer Francis SED RATE 101 mm/hr Critically high <=20 [facility] Comment on above: Performed By: #### P RTELEC #### [facility] [address] [place] [address] Dr. Wilmer Francis SODIUM RANDOM URINEon 2021 Sodium (U) [Moles/Vol] 43 mmol/L Normal 30-90 [facility] Comment on above: Performed By: #### B BOILER TUBE BLOWER #### [facility] [address] [place] [address] Dr. Wilmer Francis TSHon 06-19-2022 TSH 0.127 uIU/mL Critically low 0.358-3.740 [facility] Comment on above: Performed By: #### T SH, CRP #### [facility] [address] [place] [address] Dr. Wilmer Francis URINE T PROTEIN CREAT RATIOo n 06-19-2022 Protein (U) [Mass/Vol] 26.2 mg/dL Critically high <=12.0 [facility] Comment on above: Performed By: #### S EDR #### [facility] [address] [place], [place] [address] Dr. Wilmer Francis UR PROT CREAT RAT 0.15 Normal [facility] Comment on above: Performed By: #### S EDR #### [facility] [address] [place], [place] [address] Dr. Wilmer Francis URINE CREAT 178.86 mg/dL Normal 20.00-300.00 [facility] Comment on above: Performed By: #### S EDR #### [facility] [address] [place], [place] [address] Dr. Wilmer Francis XR CHEST 1 Von [...] KWAKU GEORGE Date: 2022-06-18 23:37 Normal [facility] COVID Quick Testingon 2021 Result Negative [employer] Other CBC Auto Differentialon Basophils (Bld) [#/Vol] 0.05 10*3/uL [place] Basophils/100 WBC (Bld) 1 % 0 - 2 % [place] Differential Type NOT REPORTED [place] Eosinophils (Bld) [#/Vol] 10*3/uL [place] Eosinophils/100 WBC (Bld) 0 % Low 1 - 4 % [place] Erythrocyte distribution width (RBC) [Ratio] 12.7 % 11.8 - 14.4 % [place] Hematocrit (Bld) [Volume fraction] 49.2 % 40.7 - 50.3 % [place] Hemoglobin (Bld) [Mass/Vol] 16.3 g/dL 13 - 17 g/dL [place] Immature granulocytes (Bld) [#/Vol] 0 % 0 [place] Immature granulocytes (Bld) [#/Vol] 0.04 10*3/uL [place] Interpretation and review of laboratory results Abnormal [place] Lymphocytes (Bld) [#/Vol] 1.63 10*3/uL [place] Lymphocytes/100 WBC (Bld) 18 % Low 24 - 43 % [place] MCH (RBC) [Entitic mass] 30.4 pg 25.2 - 33.5 pg [place] MCHC (RBC) [Mass/Vol] 33.1 g/dL 28.4 - 34.8 g/dL [place] MCV (RBC) [Entitic vol] 91.8 fL 82.6 - 102.9 fL [place] Monocytes (Bld) [#/Vol] 0.73 10*3/uL [place] Monocytes/100 WBC (Bld) 8 % 3 - 12 % [place] Platelet mean volume (Bld) [Entitic vol] 9.8 fL 8.1 - 13.5 fL [place] Platelets (Bld) [#/Vol] NOT REPORTED [place] Platelets (Bld) [#/Vol] 295 10*3/uL [place] RBC (Bld) [#/Vol] 5.36 10*6/uL 4.21 - 5.7 7 m/uL [place] RBC morphology finding Nom (Bld) NOT REPORTED [place] Segmented neutrophils/100 WBC (Bld) 73 % High 36 - 65 % [place] Segs Absolute 6.51 [place] WBC (Bld) [#/Vol] 9.0 10*3/uL [place] WBC (Bld) [#/Vol] 0.0 10*3/uL 0.0 per 10 0 WBC [place] WBC Morphology NOT REPORTED [place], [place] CBC with Diffon 06-07-2020 Abs. Basophil 0.05 k/uL Normal 0.00-0.20 [facility] Comment on above: Performed By: #### F T4, PSAS, LIPR #### [address] [address] [employer]: Jd Patricia MD #### CP, CDP, TSH #### [facility] [address] [place] [address] Dr. [address] [phone] ( [employer]: Mohamud Zamudio MD Abs.Imm.Granulocyte 0.04 k/uL Normal 0.00-0.30 [facility] Comment on above: Performed By: #### F T4, PSAS, LIPR #### [place] [address] [employer]: Jd Patricia MD #### CP, CDP, TSH #### [address] [phone] ( [employer]: Mohamud Zamudio MD Abs.Neutrophil (Seg) 6.51 k/uL Normal 1.50-8.10 [facility] Comment on above: Performed By: #### F T4, PSAS, LIPR #### [place] [address] [employer]: Jd Patricia MD #### CP, CDP, TSH #### [address] [phone] ( [employer]: Mohamud Zamudio MD Basophils/100 WBC (Bld) 1 % Normal 0-2 [facility] Comment on above: Performed By: #### F T4, PSAS, LIPR #### [place] [address] [employer]: Jd Patricia MD #### CP, CDP, TSH #### [address] [place] [address] [employer]: Mohamud Zamudio MD Eosinophils (Bld) [#/Vol] 10*3/uL Normal 0.00-0.44 [facility] Comment on above: Performed By: #### F T4, PSAS, LIPR #### [address] [address] [employer]: Jd Patricia MD #### CP, CDP, TSH #### [facility] [address] [place] [address] [place] [address] [employer]: Mohamud Zamudio MD Eosinophils/100 WBC (Bld) 0 % Low 1-4 [facility] Comment on above: Performed By: #### F T4, PSAS, LIPR #### [address] [address] [employer]: Jd Patricia MD #### CP, CDP, TSH #### [facility] [address] [place] [address] [place] [address] [employer]: Mohamud Zamudio MD Erythrocyte distribution width (RBC) [Ratio] 12.7 % Normal 11.8-14.4 [facility] Comment on above: Performed By: #### F T4, PSAS, LIPR #### [address] [phone] [employer]: Jd Patricia MD #### CP, CDP, TSH #### [address] [place] [address] [employer]: Mohamud Zamudio MD Hematocrit (Bld) [Volume fraction] 49.2 % Normal 40.7-50.3 [facility] Comment on above: Performed By: #### F T4, PSAS, LIPR #### [address] [phone] [employer]: Jd Patricia MD #### CP, CDP, TSH #### [facility] [address] [place] [address] [place] [address] [employer]: Mohamud Zamudio MD Hemoglobin (Bld) [Mass/Vol] 16.3 g/dL Normal 13.0-17.0 [facility] Comment on above: Performed By: #### F T4, PSAS, LIPR #### [address] [address] [employer]: Jd Patricia MD #### CP, CDP, TSH #### [facility] [address] [place] [address] Dr. [address] [phone] [employer]: Mohamud Zamudio MD Immature granulocytes (Bld) [#/Vol] 0 % Normal 0 [facility] Comment on above: Performed By: #### F T4, PSAS, LIPR #### [address] [address] [employer]: Jd Patricia MD #### CP, CDP, TSH #### [address] [place] [phone] [employer]: Mohamud Zamudio MD Lymphocytes (Bld) [#/Vol] 1.63 10*3/uL Normal 1.10-3.70 [facility] Comment on above: Performed By: #### F T4, PSAS, LIPR #### [address] [address] [employer]: Jd Patricia MD #### CP, CDP, TSH #### [address] [place] [phone] [employer]: Mohamud Zamudio MD Lymphocytes/100 WBC (Bld) 18 % Low 24-43 [facility] Comment on above: Performed By: #### F T4, PSAS, LIPR #### [address] [address] [employer]: Jd Patricia MD #### CP, CDP, TSH #### [address] [place] [phone] [employer]: Mohamud Zamudio MD MCH (RBC) [Entitic mass] 30.4 pg Normal 25.2-33.5 [facility] Comment on above: Performed By: #### F T4, PSAS, LIPR #### [address] [address] [employer]: Jd Patricia MD #### CP, CDP, TSH #### [address] [place] [address] [employer]: Mohamud Zamudio MD MCHC (RBC) [Mass/Vol] 33.1 g/dL Normal 28.4-34.8 [facility] Comment on above: Performed By: #### F T4, PSAS, LIPR #### [place] [address] [employer]: Jd Patricia MD #### CP, CDP, TSH #### [address] [place] [address] [employer]: Mohamud Zamudio MD MCV (RBC) [Entitic vol] 91.8 fL Normal 82.6-102.9 [facility] Comment on above: Performed By: #### F T4, PSAS, LIPR #### [place] [address] [employer]: Jd Patricia MD #### CP, CDP, TSH #### [address] [place] [phone] [employer]: Mohamud Zamudio MD Monocytes (Bld) [#/Vol] 0.73 10*3/uL Normal 0.10-1.20 [facility] Comment on above: Performed By: #### F T4, PSAS, LIPR #### [address] [phone] [employer]: Jd Patricia MD #### CP, CDP, TSH #### [address] [place], [place] [phone] [employer]: Mohamud Zamudio MD Monocytes/100 WBC (Bld) 8 % Normal 3-12 [facility] Comment on above: Performed By: #### F T4, PSAS, LIPR #### [address] [phone] [employer]: Jd Patricia MD #### CP, CDP, TSH #### [address] [place] [address] [employer]: Mohamud Zamudio MD Neutrophil (Seg) 73 % High 36-65 [facility] Comment on above: Performed By: #### F T4, PSAS, LIPR #### [address] [phone] [employer]: Jd Patricia MD #### CP, CDP, TSH #### [address] [place] [address] [employer]: Mohamud Zamudio MD NRBC Automated 0.0 per 100 WBC Normal 0.0 [facility] Comment on above: Performed By: #### F T4, PSAS, LIPR #### [address] [phone] [employer]: Jd Patricia MD #### CP, CDP, TSH #### [address] [place] [phone] [employer]: Mohamud Zamudio MD Platelet mean volume (Bld) [Entitic vol] 9.8 fL Normal 8.1-13.5 [facility] Comment on above: Performed By: #### F T4, PSAS, LIPR #### [address] [phone] [employer]: Jd Patricia MD #### CP, CDP, TSH #### [address] [address] [employer]: Mohamud Zamudio MD Platelets (Bld) [#/Vol] 295 10*3/uL Normal 138-453 [facility] Comment on above: Performed By: #### F T4, PSAS, LIPR #### [address] [address] [employer]: Jd Patricia MD #### CP, CDP, TSH #### [address] [place] [phone] [employer]: Mohamud Zamudio MD RBC (Bld) [#/Vol] 5.36 10*6/uL Normal 4.21-5.77 [facility] Comment on above: Performed By: #### F T4, PSAS, LIPR #### [address] [address] [employer]: Jd Patricia MD #### CP, CDP, TSH #### [address] [place] [phone] ( [employer]: Mohamud Zamudio MD WBC (Bld) [#/Vol] 9.0 10*3/uL Normal 3.5-11.3 [facility] Comment on above: Performed By: #### F T4, PSAS, LIPR #### [address] [address] [employer]: Jd Patricia MD #### CP, CDP, TSH #### [address] [place] [phone] [employer]: Mohamud Zamudio MD Auto Diff Performed NOT REPORTED Normal [facility] Comment on above: Performed By: #### F T4, PSAS, LIPR #### [address] [address] [employer]: Jd Patricia MD #### CP, CDP, TSH #### [address] [place] [phone] [employer]: Mohamud Zamudio MD Platelets (Bld) [#/Vol] NOT REPORTED Normal [facility] Comment on above: Performed By: #### F T4, PSAS, LIPR #### [address] [address] [employer]: Jd Patricia MD #### CP, CDP, TSH #### [address] [place], [place] [phone] [employer]: Mohamud Zamudio MD RBC morphology finding Nom (Bld) NOT REPORTED Normal [facility] Comment on above: Performed By: #### F T4, PSAS, LIPR #### [address] [address] [employer]: Jd Patricia MD #### CP, CDP, TSH #### [address] [place] [phone] [employer]: Mohamud Zamudio MD WBC Morphology NOT REPORTED Normal [facility] Comment on above: Performed By: #### F T4, PSAS, LIPR #### [address] [address] [employer]: Jd Patricia MD #### CP, CDP, TSH #### [address] [place], [place] [phone] [employer]: Mohamud Zamudio MD CT ABDOMEN PELVIS W [...] Jr., DO Signed by: Celso Cristobal Jr., 06/07/20 Final result Normal [facility] CT ABDOMEN PELVIS W IV CONTR AST Additional Contrast? Oralon 06-07-2020 No acute intra-abdominal process. [facility] EXAMINATION: CT OF THE ABDOMEN AND PELVIS [...] acute findings. Osseous structures demonstrate degenerative change. [facility] Amol, Mhpn Incoming Radiant Results From [email or web address] - 06/07/2020 12:58 PM EST EXAMINATION: CT [...] degenerative change. IMPRESSION: No acute intra-abdominal process. [facility] [place] Comp Metabolic Profon 2019 (cont.) Normal [facility] Comment on above: Result Comment: Aver age GFR for 60-69 years old: 85 mL/min/1.73sq m Chronic Kidney Disease: <60 mL/min/1.73sq m Kidney failure: <15 mL/min/1.73sq m eGFR calculated using average adult body mass. Additional eGFR calculator available at: http://www.[employer].com/multiple_crcl_2012.htm Performed By: #### F T4, PSAS, LIPR #### [facility] [address] [place] [address] [employer]: Jd Patricia MD #### CP, CDP, TSH #### [facility] [address] [place] [address] [employer]: Mohamud Zamudio MD Albumin [Mass/Vol] 4.6 g/dL Normal 3.5-5.2 [facility] Comment on above: Performed By: #### F T4, PSAS, LIPR #### [address] [address] [employer]: Jd Patricia MD #### CP, CDP, TSH #### [address] [place] [phone] ( [employer]: Mohamud Zamudio MD Albumin/Globulin [Mass ratio] 1.3 {ratio} Normal 1.0-2.5 [facility] Comment on above: Performed By: #### F T4, PSAS, LIPR #### [address] [address] [employer]: Jd Patricia MD #### CP, CDP, TSH #### [address] [place] [phone] ( [employer]: Mohamud Zamudio MD Alkaline Phos 76 U/L Normal 40-129 [facility] Comment on above: Performed By: #### F T4, PSAS, LIPR #### [address] [address] [employer]: Jd Patricia MD #### CP, CDP, TSH #### [address] [place] [phone] ( [employer]: Mohamud Zamudio MD ALT [Catalytic activity/Vol] 26 U/L Normal 5-41 [facility] Comment on above: Performed By: #### F T4, PSAS, LIPR #### [address] [address] [employer]: Jd Patricia MD #### CP, CDP, TSH #### [address] [place], [place] [id number] [employer]: Mohamud Zamudio MD Anion gap [Moles/Vol] 7 mmol/L Low 9-17 [facility] Comment on above: Performed By: #### F T4, PSAS, LIPR #### [address] [place] [address] Egg Crater: Jd Patricia MD #### CP, CDP, TSH #### [facility] [address] [place], [place] [phone] [employer]: Mohamud Zamudio MD AST [Catalytic activity/Vol] 27 U/L Normal <40 [facility] Comment on above: Performed By: #### F T4, PSAS, LIPR #### [address] [address] Egg [employer]ater: Jd Patricia MD #### CP, CDP, TSH #### [facility] [address] [place] [phone] [employer]: Mohamud Zamudio MD Bilirubin Ql (U) 0.66 mg/dL Normal 0.3-1.2 [facility] Comment on above: Performed By: #### F T4, PSAS, LIPR #### [address] [address] Egg Crater: Jd Patricia MD #### CP, CDP, TSH #### [facility] [address] [place] [phone] [employer]: Mohamud Zamudio MD BUN/CRE Ratio 11 Normal 9-20 [facility] Comment on above: Performed By: #### F T4, PSAS, LIPR #### [address] [address] Egg Crater: Jd Patricia MD #### CP, CDP, TSH #### [facility] [address] [place], [place] [phone] [employer]: Mohamud Zamudio MD Calcium [Mass/Vol] 9.7 mg/dL Normal 8.6-10.4 [facility] Comment on above: Performed By: #### F T4, PSAS, LIPR #### [facility] [address] [place] [address] Egg Crater: Jd Patricia MD #### CP, CDP, TSH #### [facility] [address] [place], [place] [phone] Egg [employer]ater: Mohamud Zamudio MD Chloride [Moles/Vol] 100 mmol/L Normal 98-107 [facility] Comment on above: Performed By: #### F T4, PSAS, LIPR #### [address] [address] Egg Crater: Jd Patricia MD #### CP, CDP, TSH #### [facility] [address] [place] [address] Egg Crater: Mohamud Zamudio MD CO2 [Moles/Vol] 30 mmol/L Normal 20-[address] [facility] Comment on above: Performed By: #### F T4, PSAS, LIPR #### [address] [address] Egg Crater: Jd Patricia MD #### CP, CDP, TSH #### [facility] [address] [place] [address] Egg Crater: Mohamud Zamudio MD Creatinine [Mass/Vol] 0.74 mg/dL Normal 0.70-1.20 [facility] Comment on above: Performed By: #### F T4, PSAS, LIPR #### [address] [address] Egg Crater: Jd Patricia MD #### CP, CDP, TSH #### [facility] [address] [place], [place] [phone] Egg Crater: Mohamud Zamudio MD GFR, Amer >60 Normal >60 [facility] Comment on above: Performed By: #### F T4, PSAS, LIPR #### [facility] [address] [place] [address] Egg Crater: Jd Patricia MD #### CP, CDP, TSH #### [facility] [address] [place], [place] [phone] Egg [employer]ater: Mohamud Zamudio MD GFR,non Amer >60 Normal >60 [facility] Comment on above: Performed By: #### F T4, PSAS, LIPR #### [address] [address] [employer]: Jd Patricia MD #### CP, CDP, TSH #### [facility] [address] [place], [place] [phone] Egg Crater: Mohamud Zamudio MD Glucose [Mass/Vol] 140 mg/dL High 70-99 [facility] Comment on above: Performed By: #### F T4, PSAS, LIPR #### [address] [address] Egg Crater: Jd Patricia MD #### CP, CDP, TSH #### [facility] [address] [place], [place] [phone] Egg Crater: Mohamud Zamudio MD Potassium [Moles/Vol] 4.3 mmol/L Normal 3.7-5.3 [facility] Comment on above: Performed By: #### F T4, PSAS, LIPR #### [address] [place] [address] Egg Crater: Jd Patricia MD #### CP, CDP, TSH #### [facility] [address] [place], [place] [phone] Egg [employer]: Mohamud Zamudio MD Protein [Mass/Vol] 8.2 g/dL Normal 6.4-8.3 [facility] Comment on above: Performed By: #### F T4, PSAS, LIPR #### [address] [address] Egg Crater: Jd Patricia MD #### CP, CDP, TSH #### [address] [place], [place] [phone] Egg Crater: Mohamud Zamudio MD Sodium [Moles/Vol] 137 mmol/L Normal 135-144 [facility] Comment on above: Performed By: #### F T4, PSAS, LIPR #### [address] [address] Egg Crater: Jd Patricia MD #### CP, CDP, TSH #### [address] [place] [address] Egg Crater: Mohamud Zamudio MD Staging: Normal [facility] Comment on above: Result Comment: Stag e 1: Some kidney damage normal GFR Stage 2: Mild kidney damage GFR 60-89 Stage 3: Moderate kidney damage GFR 30-59 Stage 4: Severe kidney damage GFR 15-29 Stage 5: Severe kidney damage GFR <15 ESRD - chronic treatment by dialysis or transplant Performed By: #### F T4, PSAS, LIPR #### [address] [address] Egg Crater: Jd Patricia MD #### CP, CDP, TSH #### [address] [place], [place] [phone] Egg [employer]ater: Mohamud Zamudio MD Urea nitrogen [Mass/Vol] 8 mg/dL Normal 8-23 [facility] Comment on above: Performed By: #### F T4, PSAS, LIPR #### [address] [address] Egg Crater: Jd Patricia MD #### CP, CDP, TSH #### [address] [place] [address] Egg Crater: Mohamud Zamudio MD Comprehensive Metabolic Pane sanchez 06-07-2020 Albumin [Mass/Vol] 4.6 g/dL 3.5 - 5.2 g/dL [place], [place] Albumin/Globulin [Mass ratio] 1.3 {ratio} [place] ALP [Catalytic activity/Vol] 76 U/L 40 - 129 U/L [place] ALT [Catalytic activity/Vol] 26 U/L 5 - 41 U/L [place] Anion gap [Moles/Vol] 7 mmol/L Low 9 - 17 mmol/L [place] AST [Catalytic activity/Vol] 27 U/L <40 [place] Bilirubin Ql (U) 0.66 mg/dL 0.3 - 1.2 mg/dL [place] Bun/Cre Ratio 11 [place], [place] Calcium [Mass/Vol] 9.7 mg/dL 8.6 - 10. 4 mg/dL [place] Chloride [Moles/Vol] 100 mmol/L 98 - 10 7 mmol/L [place] CO2 [Moles/Vol] 30 mmol/L 20 - 31 mmol/L [place] Creatinine [Mass/Vol] 0.74 mg/dL 0.7 - 1.2 mg/dL [place] GFR >60 >60 mL/min [place] GFR Non- >60 >60 mL/min [place] Glucose [Mass/Vol] 140 mg/dL High 70 - 99 mg/dL [place], [place] Interpretation and review of laboratory results Abnormal [place] Potassium [Moles/Vol] 4.3 mmol/L 3.7 - 5.3 mmol/L [place] Protein [Mass/Vol] 8.2 g/dL 6.4 - 8.3 g/dL [place] Sodium [Moles/Vol] 137 mmol/L 135 - 144 mmol/L [place] Urea nitrogen [Mass/Vol] 8 mg/dL 8 - 23 mg/dL [place] Lipid Panelon 06-07-2020 Cholesterol [Mass/Vol] 194 mg/dL <200 [place] Comment on above: Cholesterol Guidelines: <200 Desirable 200-240 Borderline >240 Undesirable Cholesterol in HDL [Mass/Vol] 54 mg/dL >40 [place] Comment on above: HDL Guidelines: <40 Undesirable 40-59 Borderline >59 Desirable Cholesterol in LDL [Mass/Vol] 124 mg/dL 0 - 130 mg/dL [place] Comment on above: LDL Guidelines: <100 Desirable 100-129 Near to/above Desirable 130-159 Borderline >159 Undesirable Direct (measured) LDL and calculated LDL are not interchangeable tests. Cholesterol in VLDL [Mass/Vol] NOT REPORTED 1 - 30 mg/dL [place] Cholesterol.total/Cho lesterol in HDL [Mass ratio] 3.6 {ratio} <5 [place] Triglyceride [Mass/Vol] 81 mg/dL <150 [place] Comment on above: Triglyceride Guidelines: <150 Desirable 150-199 Borderline 200-499 High >499 Very high Based on AHA Guidelines for fasting triglyceride, April 2012. Lipid Profileon 06-07-2020 Cholesterol [Mass/Vol] 194 mg/dL Normal <200 [facility] Comment on above: Result Comment: Cholesterol Guidelines: <200 Desirable 200-240 Borderline >240 Undesirable Performed By: #### F T4, PSAS, LIPR #### [id number] [place], [place] [phone] Egg Crater: Jd Patricia MD #### CP, CDP, TSH #### [facility] [address] [place] [address] Egg Crater: Mohamud Zamudio MD Cholesterol in HDL [Mass/Vol] 54 mg/dL Normal >40 [facility] Comment on above: Result Comment: HDL Guidelines: <40 Undesirable 40-59 Borderline >59 Desirable Performed By: #### F T4, PSAS, LIPR #### [address] [id number] Egg Crater: Jd Patricia MD #### CP, CDP, TSH #### [facility] [address] [place] [address] Egg Crater: Mohamud Zamudio MD Cholesterol in LDL [Mass/Vol] 124 mg/dL Normal 0-130 [facility] Comment on above: Result Comment: LDL Guidelines: <100 Desirable 100-129 Near to/above Desirable 130-159 Borderline >159 Undesirable Direct (measured) LDL and calculated LDL are not interchangeable tests. Performed By: #### F T4, PSAS, LIPR #### [address] [address] Egg Crater: Jd Patricia MD #### CP, CDP, TSH #### [facility] [address] [place] [address] Egg Crater: Mohamud Zamudio MD Cholesterol.total/Cho lesterol in HDL [Mass ratio] 3.6 {ratio} Normal <5 [facility] Comment on above: Performed By: #### F T4, PSAS, LIPR #### [address] [address] Egg Crater: Jd Patricia MD #### CP, CDP, TSH #### [facility] [address] [place] [address] Egg Crater: Mohamud Zamudio MD Triglyceride [Mass/Vol] 81 mg/dL Normal <150 [facility] Comment on above: Result Comment: Triglyceride Guidelines: <150 Desirable 150-199 Borderline 200-499 High >499 Very high Based on AHA Guidelines for fasting triglyceride, April 2012. Performed By: #### F T4, PSAS, LIPR #### [address] [address] Egg Crater: Jd Patricia MD #### CP, CDP, TSH #### [facility] [address] [place] [address] Egg Crater: Mohamud Zamudio MD Cholesterol in VLDL [Mass/Vol] NOT REPORTED Normal 1-30 [facility] Comment on above: Performed By: #### F T4, PSAS, LIPR #### [facility] [address] [place] [address] Egg Crater: Jd Patricia MD #### CP, CDP, TSH #### [facility] [address] [place] [address] Egg Crater: Mohamud Zamudio MD [facility] KAYCEE DIGITAL DIAGNOSTIC BILATERALon 06-07-2020 [facility] KAYCEE DIGITAL DIAGNOSTIC BILATERAL EXAMINATION: [...] James Samuel MD 06/07/20 Final result Normal [facility] Metabolic Panelon 06-07-2020 GFR/1.73 sq M predicted among non-blacks MDRD (S/P/Bld) [Vol rate/Area] [facility] [place] [place] Comment on above: Average GFR for 60-6 9 years old: 85 mL/min/1.73sq m Chronic Kidney Disease: <60 mL/min/1.73sq m Kidney failure: <15 mL/min/1.73sq m eGFR calculated using average adult body mass. Additional eGFR calculator available at: http://www.[employer]/multiple_crcl_2012.htm Stage 1: Some kidney damage normal GFR [...] sent to the patient regarding the results. [facility] EXAM[facility]ATION: DIAGNOSTIC DIGITAL BILATERAL BREASTS MAMMOGRAM WITH [...] enlarged or suspicious left axillary lymph nodes. [facility] Amol, Mhpn Incoming Radiant Results From [email or web address] - 06/07/2020 12:14 PM EST EXAMINATION: DIAGNOSTIC [...] sent to the patient regarding the results. [place], [place] PSA, Screeningon 06-07-2020 Prostatic Spec. Ag 0.47 ug/L Normal <4.1 [facility] Comment on above: Result Comment: The Graciela ECLIA assay is used. Results obtained with different assay methods cannot be used interchangeably. Performed By: #### F T4, PSAS, LIPR #### [facility] [address] [place] [address] Egg Crater: Jd Patricia MD #### CP, CDP, TSH #### [facility] [address] [place] [address] Egg Crater: Mohamud Zamudio MD T4, Freeon 06-07-2020 Thyroxine, Free 1.37 ng/dL 0.93 - 1.7 ng/dL [place] TSH without Reflexon 020 TSH Qn 0.70 m[IU]/L [place], [place] Thyroid Stim. Horm.on 2019 TSH Qn 0.70 m[IU]/L Normal 0.30-5.00 [facility] Comment on above: Performed By: #### F T4, PSAS, LIPR #### [facility] [address] [place], [place] [id number] Egg Crater: Jd Patricia MD #### CP, CDP, TSH #### [facility] [address] [place] [address] Egg Crater: Mohamud Zamudio MD Thyroxine, Freeon 06-07-2020 Thyroxine, Free 1.37 ng/dL Normal 0.93-1.[address] [facility] Comment on above: Performed By: #### F T4, PSAS, LIPR #### [facility] [address] [place], [place] [id number] Egg Crater: Jd Patricia MD #### CP, CDP, TSH #### [facility] [address] [place] [address] [place] [address] Egg Crater: Mohamud Zamudio MD US BREAST COMPLETE LEFTon [...] James Samuel MD 06/07/20 Final result Normal [facility] Vital Signs Date Time Vital Sign Value Performing Clinician Facility 07-14-2021 14:30-0500 Body height 170.18 cm Jazmin Ginty Other [employer] Other 07-14-2021 14:30-0500 Body mass index (BMI) [Ratio] 33.67 kg/m2 Jazmin Ginty Other [employer] Other 07-14-2021 14:30-0500 Body temperature 97.7 [degF] Jazmin Ginty Other [employer] Other 07-14-2021 14:30-0500 Body weight 97.52 kg Jazmin Ginty Other [employer] Other 07-14-2021 14:30-0500 Respiratory rate 16 /min Jazmin Ginty Other [employer] Other 07-14-2021 14:30-0500 SaO2% (BldA) [Mass fraction] 92 % Jazmin Ginty Other [employer] Other Encounters Encounter Date Encounter Type Care Provider Facility Start: 01-05-2024 End: 01-05-2024 ambulatory [facility] Start: 12-04-[address] JOE MUSA Fac [...] 07-14-2021 End: 07-14-2021 ambulatory Jazmin Ginty Other [employer] Other Start: 07-14-2021 Office outpatient vi sit 15 minutes Jazmin Ginty [facility] Start: 06-07-2020 End: 06-10-2020 Patient encounter procedure JOE MUSA [facility] Start: 06-07-2020 End: 06-09-2020 Subsequent hospital visit by physician [facility] Drawing Room [facility] Comment on above: Arrived Breast lump Generalized abdomina l pain Lump in central port ion of left breast Lump or mass in nathan[address] Procedures Date Procedure Procedure Detail Performing Clinician Start: 12-04-[address] JOE MUSA Comment on above: Performed By: #### B BOILER TUBE BLOWER #### [facility] [address] [place] [address] Dr. Wilmer Francis Start: 07-16-[address] JOE MUSA Comment on above: Performed By: #### T SH, CRP #### [facility] [address] [place] [address] Dr. Wilmer Francis Start: 06-07-2020 [object Object] [facility] Comment on above: The Graciela ECLIA as [...] JOE MUSA Start: 06-07-2020 Assay of thyroid stimulating hormone tsh JOE MUSA Start: 06-07-2020 Blood count complete auto&auto difrntl wbc JOE MUSA Start: 06-07-2020 Comprehensive metabo lic panel JOE MUSA Start: 06-07-2020 Lipid panel [...] Author Start: 06-07-2025 Lipid panel Lipid screen [place], [place] Start: 03-07-2020 Influenza vaccination Flu vaccine (# 1) [place] Start: 11-16-2005 Screening for malign ant neoplasm of colon Colon cancer screen colonoscopy [place] Start: 11-16-2005 Shingles Vaccine (1 of 2) Shingles Vaccine (1 of 2) [place] Start: 1995 Lipid panel Lipid screen [place], [place] Start: 11-16-1974 DTaP/Tdap/Td vaccine (1 - Tdap) DTaP/Tdap/Td vaccine (1 - Tdap) [place] Start: 11-16-1970 HIV screening HIV screen [place], [place] Start: 1955 Hepatitis C screening Hepatitis C [facility] [place] Payers Date Payer Category Payer Private Health Insurance [id number] 1959 Medicare [id number] 2. [id number] 1959 Self-pay 1955 Unknown [id number] 2.16.8 [id number] 1955 Unknown [id number] 2.16.8 [id number] 1955 Unknown [id number] 2.16.8 [id number] 1955 Unknown [id number] 2.16.8 [id number] 1955 Unknown [id number] 2.16.8 [id number] 1955 Unknown [id number] 2.16.84 [id number] 1955 Unknown [id number] 2.16.84 [id number] 1955 Unknown [id number] 2.16.84 [id number] 1955 Unknown [id number] 2.16.84 [id number] 1955 Unknown [id number] 2.16.84 0.1.617935.3.579.2.593 1955 Unknown [id number] 2.16.84 0.1.870146.3.579.2.593 1955 Unknown [id number] 2.16.84 0.1.881054.3.579.2.593 1955 Unknown [id number] 2.16.84 [id number] Unknown [id number] 2.16.84 [id number] Social History Date Type Detail Facility Tobacco smoking status NHIS Unknown if ev er smoked [facility]ery[facility] Sex Assigned At Not on file Bery[facility] Exposure to SARS-CoV -2 (event) Not sure [employer] [facility] Sex Assigned At Sex Assigned At Bir [employer] Other Progress note 01-05-2024 Note Date & Type Note Facility 01-05-2024 Note [facility] Subjective Bipin Ulloa is a 68 y.o. year old male patient being seen for 1 year follow up hypertension, hyperlipidemia, and SOB. Had lipid panel in October 2023. Says he's now using cpap machine and feels much better. SOB and LE edema are no worse than usual for him he says. Denies chest pain, palpitations, and lightheadedness/syncope. Patient Active Problem List Diagnosis Chronic obstructive lung disease ([facility]/H[facility]) Fatigue Gastroesophageal reflux disease Hyperlipidemia Hypertensive disorder Obesity Type 2 diabetes mellitus ([facility]) Family History Problem Relation Name Age of Onset Heart failure Father Coronary artery disease Father Social History Tobacco Use Smoking status: Former Types: Cigarettes Smokeless tobacco: Never Substance Use Topics Alcohol use: Yes Comment: [facility] Visit of 10/29/2021: Bipin is seen as [...] has no palpitations. No lower extremity edema. Visit of 12/31/2021: He is seen in [...] very well controlled. He has no complaints. Visit of 12/18/2022: He is seen in [...] started on hydroxychloroquine about 4 months ago. Visit of 01/05/2024: He is seen in follow-up. He reports that he has been doing relatively well he continues to have shortness of breath on exertion. Relieved by rest. No leg swelling. No chest pain. No palpitations. He can golf. He is not able to ambulate on a treadmill due to limitations with arthritis. Review of Systems Cardiovascular: Positive for dyspnea on exertion and leg swelling. Respiratory: Positive for cough and wheezing. Hematologic/Lymphatic: Bruises/bleeds easily. Musculoskeletal: Positive for arthritis, back pain and joint pain. Neurological: Positive for loss of balance. All other systems reviewed and are negative. Objective Visit Vitals BP 128/76 (BP Location: Left arm, Patient Position: Sitting) Pulse 64 Ht 1.702 m (5' 7 ) Wt 99.3 kg (219 lb) SpO2 93% BMI 34.30 kg/m??? Smoking Status Former BSA 2.17 m??? Physical Exam Constitutional: Appearance: He is [...] Bowel sounds are normal. There is no distension. Palpations: Abdomen is soft. Tenderness: There is no abdominal tenderness. Musculoskeletal: General: No swelling. Cervical back: Neck supple. Skin: General: Skin is warm and dry. Neurological: General: No focal deficit present. Mental Status: He is alert and oriented to person, place, and time. Psychiatric: Mood and Affect: Mood normal. Behavior: Behavior is cooperative. Judgment: Judgment normal. Allergies No Known Allergies Medications Current Outpatient Medications: amLODIPine (Norvasc) 5 mg tablet, TAKE 1 TABLET BY MOUTH EVERY DAY, Disp: 90 tablet, Rfl: 3 aspirin 81 mg EC tablet, Take 1 tablet every day by oral route., Disp: , Rfl: atorvastatin (Lipitor) 10 mg tablet, Take 1 tablet every day by oral route., Disp: , Rfl: budesonide-formoteroL (Symbicort) 160-4.5 mcg/actuation inhaler, Inhale 2 puffs twice a day by inhalation route., Disp: , Rfl: ergocalciferol (Vitamin D-2) 1.25 MG (88702 Units) capsule, THE 1 CAPSULE BY MOUTH ONCE (more content not included)... [facility] Evaluation note 07-14-2021 Note Date & [...] Patient care instructions given in writting by [facility] Care At Home document [employer] Other History general Narrative - Reported Note Date & Type Note Facility History general Narrative - Reported Type Medical History high blood pressure Surgical History cyst on head Hospitalization History pnemonia Hospitalization History stress related [employer] Other Reason for Referral Status Reason Specialty Diagnoses / Procedures Referred By Contact Referred To Contact Pending Review Radiology Diagnoses Breast lump Procedures US BREAST COMPLETE LEFT Joe Musa MD [address] [place] [address] Status Reason Specialty Diagnoses / Procedures Referred By Contact Referred To Contact Pending Review Radiology Diagnoses Generalized abdominal pain Procedures CT ABDOMEN PELVIS W IV CONTRAST Additional Contrast? Oral Joe Musa MD [address] [place] [id number] Status Reason Specialty Diagnoses / Procedures Referre d By Contact Referred To Contact Closed Radiology Diagnoses Lump or mass in breast Procedures ADAL KAYCEE DIGITAL DIAGNOSTIC BILATERAL Joe Musa MD [address] [place] [address] Assessments Diagnosis Breast lump Lump or mass [...] Diagnoses Unspecified lump in unspecified breast Procedures HC US BREAST COMP Joe Musa MD [address] [place] [address] [facility] Ul[facility]ound [address] [place] [address] Status Reason Specialty Diagnoses / Procedures Referre d By Contact Referred To Contact Closed Radiology Diagnoses Generalized abdominal pain Procedures HC CT ABDOMEN PELVIS W CONTRAST Joe Musa MD [address] [place] [address] [facility] [address] Scan [address] [place], [place] [id number] Status Reason Specialty Diagnoses / Procedures Referred By Contact Referred To Contact Authorized Radiology Diagnoses Unspecified lump in unspecified breast Procedures US BREAST COMP Joe Musa MD [address] [place] [address] [facility] [address] [place] [address] Status Reason Specialty Diagnoses / Procedures Referre d By Contact Referred To Contact Closed Radiology Diagnoses Lump or mass in breast Procedures ADAL KAYCEE DIGITAL DIAGNOSTIC BILATERAL Joe Musa MD [address] [place] [address] (unrecognized sect ion and content) No Status Records FoundNo Status Records FoundNo Status Records FoundNo Status Records Found INFORMATION SOURCE (unrecogn ized section and content) DATE CREATED AUTHOR 06/10/2020 [facility] DATE CREATED AUTHOR AUTHOR'S ORGANIZ ATION 12/13/2022 [facility] DATE CREATED AUTHOR AUTHOR'S ORGANIZ ATION 12/14/[address] [facility] DATE CREATED AUTHOR AUTHOR'S ORGANIZ ATION 01/06/2024 [facility] FOR RECORDS PERTAINING TO PATIENTS WHO [...] BE BASED ON THE PRIMARY CLINICAL RECORDS. [employer] [facility]. provides no warranty or guarantee of the accuracy or completeness of information in this document.
--- NOTE | 2024-01-23 08:00 | NM_ITS ---
Patient Name: BIPIN ULLOA MR#: [id number] : 1955 Exam Date: 01/23/2024 Ordering Doctor: DR MARCIANO NEWELL M.D. RADIOLOGY REPORT PROCEDURE: NM CHANTE PERF SPECT REST STR COMPARISON: None. INDICATIONS: SHORTNESS OF BREATH TECHNIQUE: Exam Description: Stress/Rest one day protocol gated SPECT Rest Imagin.1 mCi Tc-99m Cardiolite IV on 01/23/2024 Stress Imaging 30.7 mCi Tc-99m Cardiolite IV on 01/23/2024 Exercise Protocol: 0.4 mg Lexiscan given IV Heart Rate (bpm): Rest: 70 Max: 100 PMHR: 65 Blood Pressure: Rest: 140/82 Max: 140/82 Symptoms: Rest and peak stress ECG findings were pending and the exercise portion of the study was pending per attending physician Dr. FATIMA . For more details please see separate cardiac stress test report. FINDINGS: QUALITY OF STUDY: Excellent. PERFUSION DEFECT: LOCATION: Apical anterior. SIZE: Small (1-2 segments). SEVERITY: Mild. TYPE: Persistent. WALL MOTION: Normal. Mid-inferolateral. LV SIZE: Normal. 79 mL. TID / TCD: None; 1.0 LVEF: Normal. Calculated EF 75%. SUMMARY: Myocardial perfusion imaging study has ABNORMAL findings. CONCLUSION: 1. No acute or reversible ischemia. 2. Small fixed area of ischemia versus attenuation artifact involving the apically anterior septal wall and the mid inferior lateral wall. 3. Normal wall motion, left ventricle volume, and ejection fraction. Dictated by: Zachary Conrad M.D. on 01/23/2024 at 13:26 Approved by: Zachary Conrad M.D. on 01/23/2024 at 13:33
[2024-01-23] MEDS: REGADENOSON 0.4 MG/5 ML SYRINGE IV (10:13)
--- NOTE | 2024-01-23 10:14 | PC.NURSE ---
Nursing Note Cardiac Stress Test Reviewed: Medication, allergies and patient history reviewed. Stress Test: [ ] Patient tolerated stress test well. [ x] Patient unable to tolerate walking on treadmill. Switched to Lexiscan stress test. [ x] No chest pain noted per patient [ ] Chest pain that resolved prior to leaving stress lab. [ ] No dyspnea noted. [x ] Dyspnea that resolved prior to leaving stress lab. [ x Patient left stress lab asymptomatic and hemodynamically stable. [ ] Patient taken to the Emergency Room due to non-resolving symptoms following stress test. [ ] Patient achieved target heart rate. [ ] Patient unable to achieve target heart rate. [ ] Aminophylline administered as reversal agent to Lexiscan (Regadenoson). [ ] Nitro administered. Nursing Comments: Patient unable to walk on treadmill. Lexiscan test administered. Patient reports he has had a chemical stress test before and it was a terrible experience. He said he felt like his heart would beat right out of his chest during the last exam. Patient reports none of these symptoms during this test today. Patient had some shortness of breath during the immediate time following the lexiscan administration but reports that has resolved prior to leaving the room. Patient states he is back to his baseline prior to leaving the stress lab.
== END 2024-01-23 07:40 | disposition home or self-care (01) ==
LOC: NM 07:39
PROVIDERS: PCP Family Medicine; Visit Provider Internal Medicine Interventional Cardiology
DX: R06.02 Shortness of breath (principal)
CPT/HCPCS: 78452; 93017; A9500; J2785

== ENCOUNTER 2024-11-03 08:42 | Outpatient (OUT) | payer MEDICARE, SELFPAY ==
[2024-11-03 09:08] LABS: Basophils Absolute Auto 0.1 10^3/uL (0.0-0.1); Basophils Percent Auto 1.2 % (0.2-2.0); Eosinophils Absolute Auto 0.4 10^3/uL (0.0-0.7); Eosinophils Percent Auto 6.4 % (0.9-7.0); Hematocrit 46.6 % (42.0-54.0); Hemoglobin 15.9 g/dL (14.0-18.0); Immature Granulocytes Abs Auto 0.01 10^3/uL (0.00-0.03); Immature Granulocytes Pct Auto 0.1 % (0.0-0.5); Lymphocytes Absolute Auto 1.9 10^3/uL (1.2-3.8); Lymphocytes Percent Auto 27.9 % (20.5-60.0); Mean Corpuscular HGB Conc 34.1 g/dL (29.9-35.2); Mean Corpuscular Hemoglobin 32.4 pg (25.9-34.0); Mean Corpuscular Volume 94.9 fL (80.0-94.0); Mean Platelet Volume 9.3 fL (9.5-13.5); Monocytes Absolute Auto 0.7 10^3/uL (0.3-0.8); Monocytes Percent Auto 10.7 % (1.7-12.0); Neutrophils Absolute Auto 3.7 10^3/uL (1.4-6.5); Neutrophils Percent Auto 53.7 % (43.0-75.0); Platelet Count 198 10^3/uL (150-450); Red Blood Count 4.91 10^6/uL (4.70-6.10); Red Cell Distribution Width 12.9 % (11.0-15.0); White Blood Count 6.9 10^3/uL (4.0-11.0)
[2024-11-03 09:29] LABS: Alanine Aminotransferase 24 U/L (16-63); Albumin Globulin Ratio 1.2; Albumin Level 3.7 g/dL (3.4-5.0); Alkaline Phosphatase 63 U/L (46-116); Anion Gap 11.6; Aspartate Amino Transferase 24 U/L (15-37); BUN Creatinine Ratio 12.2; Bilirubin Total 0.7 mg/dL (0.2-1.0); Calcium 9.1 mg/dL (8.5-10.1); Carbon Dioxide 33.9 mmol/L (21.0-32.0); Chloride 100 mmol/L (98-107); Cholesterol 143 mg/dL (<=200); Estimated GFR (African America >60 (>=60 mL/min/1.73m^2); Estimated GFR (Non-African Ame >60 (>=60 mL/min/1.73m^2); Globulin 3.2 g/dL; Glucose 127 mg/dL (74-106); HDL Cholesterol 72 mg/dL (40-60); Potassium 4.5 mmol/L (3.5-5.1); Sodium 141 mmol/L (136-145); Total Protein 6.9 g/dL (6.4-8.2); Triglycerides 52 mg/dL (<=150); VLDL CHOLESTEROL 10.4 mg/dL
[2024-11-03 09:42] LABS: Estimated Average Glucose 126 mg/dL
[2024-11-03 10:07] LABS: Prostate Specific Antigen Scrn 0.88 ng/mL (<=4.00)
[2024-11-03 14:06] LABS: Creatinine Urine Random 137.94 mg/dL (20.00-300.00); Microalbumin Urine Random <1.3 mg/dL (<=30.0)
== END 2024-11-03 08:43 | disposition home or self-care (01) ==
LOC: LAB 08:44
PROVIDERS: PCP Family Medicine; Visit Provider Family Medicine
DX: E78.2 Mixed hyperlipidemia (principal); I10 Essential (primary) hypertension; Z12.5 Encounter for screening for malignant neoplasm of prostate; E55.9 Vitamin D deficiency, unspecified; R73.03 Prediabetes
CPT/HCPCS: 36415; 80053; 80061; 82043; 82306; 82570; 83036; 84153; 85025; G0103

== ENCOUNTER 2024-12-16 09:27 | Outpatient (OUT) | payer MEDICARE, SELFPAY ==
--- NOTE | 2024-12-16 09:30 | XR_ITS ---
The [address] [address] Patient Name: BIPIN ULLOA MRN: [id number] date: 1955 Sex: M Assigned Patient Location: [facility] Current Patient Location: [facility] Accession/Order Number: [id number] Exam Date: 12/16/2024 10:04 Report Date: 12/16/2024 10:08 At the request of: KURTIS MUSA DO Procedure: XR chest 2V PA AND LATERAL CHEST: CLINICAL HISTORY: Acute Bronchitis. Productive cough. COMPARISON: 02/24/2024, 04/25/[address] 11/21/2023 There is continued elevation of the right hemidiaphragm with adjacent scarring or atelectasis. There is no developing consolidation, effusion or pneumothorax. The cardiac, hilar and mediastinal silhouettes are stable. There is no suspected vascular congestion. The visualized bony structures are osteopenic. There is degenerative change at the spine. XR/XR chest 2V IMPRESSION: CHRONIC ELEVATION OF THE RIGHT HEMIDIAPHRAGM WITH ADJACENT ATELECTASIS OR SCARRING. NO ACUTE FINDINGS. Impression dictated by: Ml Garvin M.D. 12/16/2024 10:08 AM Dictation Location: [place] [address] Electronically authenticated by: [id number] Y Date: 12/16/2024 10:08
--- OUTSIDE RECORDS SUMMARY | 2024-12-16 09:49 | XMS_ITS | CCD ---
Author Organization [facility] Care Team Providers Care Wholesale Agronomist Name Role Phone Joe Musa Primary Care Provider MUSAJOE Referring Unavailable MUSA, JOE Primary Care [...] DENNIS ., DR NUHA Ortiz Consulting Unavailable NADFARZANA, DR HAMLET Parikh Admitting Unavailable MUSA, DR [...] Unavailable AL, DR GIAN Parikh Consulting Unavailable [facility] ., DARIN Consulting Unavailable JADEN, DR KEVIN Wayne Consulting Unavailable [facility] [place] REDDY Attending Unavailable [facility] [place] REDDY Admitting Unavailable LENCHO, DR JOE Parikh Primary Care Unavailable [facility] [place] REDDY Consulting Unavailable MARCIANO NEWELL Attending Unavailable Allergies Allergy Classification Reported Allergen(s) Allergy Type Date of Onset Reaction(s) Facility (1 source) Azithromycin Drug Allergy 06-19-2022 [facility] Repository Medications Current Medications Medication Drug Class(es) Dates Sig (Normalized) Sig (Original) [id number] 200 actuat albuterol 0.09 mg/actuat metered dose [...] left breast] Other aftercare (5 sources) Other fpc (current) drug therapy; Translations: [OTH LONG-TERM CURRENT DRUG THERAPY] Onset: 07-03-2022 Episodic Other eye disorders (4 sources) Ocular pain, right eye; Translations: [OCULAR PAIN RIGHT EYE] Onset: 10-31-2022 Episodic Other lower respiratory disease (4 sources) Solitary pulmonary nodule; Translations: [SOLITARY PULMONARY NODULE] Onset: 10-22-2022 Episodic Other nutritional; endocrine; and metabolic disorders [...] FIND LNG FIELD] Onset: 07-18-2022 Episodic Other lower respiratory disease (2 sources) [...] Test Name Value Interpretation Reference Range Facility CBC/ALB/ALT/AST/ALK/CRon Albumin [Mass/Vol] 4.5 g/dL Normal (3.5 - 5.0) [facility] Comment on above: Order Comment: FACIL ITY: [facility] [id number] Performed By: #### Trina BC-4A, ESRCRP #### [facility] [address] [facility], [address] ALK PHOS 64 U/L Normal (38 - 126) [facility] Comment on above: Order Comment: FACIL ITY: [facility] [id number] Performed By: #### Trina BC-4A, ESRCRP #### [facility] [address] [facility], [address] ALT [Catalytic activity/Vol] 24 U/L Normal (1 - 45) [facility] Comment on above: Order Comment: FACIL ITY: [facility] [id number] Performed By: #### C BC-4A, ESRCRP #### [facility] [address] [facility], [address] AST [Catalytic activity/Vol] 30 U/L Normal (15 - 46) [facility] Comment on above: Order Comment: FACIL ITY: [facility] [id number] Performed By: #### Trina BC-4A, ESRCRP #### [facility] [address] [facility], [address] Creatinine [Mass/Vol] 0.66 mg/dL Normal (0.66 - 1.25) [facility] Comment on above: Order Comment: FACIL ITY: [facility] [id number] Performed By: #### Trina HERRERA-Diony, ESRCRP #### [facility] [address] [facility], [address] GFR by CKD-EPI 102.2 ML/M1.7 Normal (60.0) [facility] Comment on above: Order Comment: FACIL ITY: [facility] [id number] Performed By: #### Trina HERRERA-4A, ESRCRP #### [facility] [address] [facility], [address] Hematocrit (Bld) [Volume fraction] 46.4 % Normal (42.0 - 52.0) [facility] Comment on above: Order Comment: FACIL ITY: [facility] [id number] Performed By: #### Trina HERRERA-Diony, ESRCRP #### [facility] [address] [facility], [address] Hemoglobin (Bld) [Mass/Vol] 15.8 g/dL Normal (14.0 - 18.0) [facility] Comment on above: Order Comment: FACIL ITY: [facility] [id number] Performed By: #### Trina BC-4A, ESRCRP #### [facility] [address] [facility], [address] MCH (RBC) [Entitic mass] 31.5 pg Normal (27.0 - 33.0) [facility] Comment on above: Order Comment: FACIL ITY: [facility] [id number] Performed By: #### Trina HERRERA-4A, ESRCRP #### [facility] [address] [facility], [address] MCHC (RBC) [Mass/Vol] 34.1 g/dL Normal (30.0 - 37.0) [facility] Comment on above: Order Comment: FACIL ITY: [facility] [id number] Performed By: #### Trina BC-4A, ESRCRP #### [facility] [address] [place], [address] MCV (RBC) [Entitic vol] 92.4 fL Normal (80.0 - 94.0) [facility] Comment on above: Order Comment: FACIL ITY: [facility] [id number] Performed By: #### Trina HERRERA-Diony, ESRCRP #### [facility] [address] [place], [address] PLT 233 x10^3ul Normal (130 - 400) [facility] Comment on above: Order Comment: FACIL ITY: [facility] [id number] Performed By: #### Trina HERRERA-4A, ESRCRP #### [facility] [address] [place], [address] RBC 5.02 x10^6ul Normal (4.70 - 6.10) [facility] Comment on above: Order Comment: FACIL ITY: [facility] [id number] Performed By: #### Trina HERRERA-4A, ESRCRP #### [facility] [address] [place], [address] WBC 8.28 x10^3ul Normal (3.80 - 10.60) [facility] Comment on above: Order Comment: FACIL ITY: [facility] [id number] Performed By: #### Trina BC-4A, ESRCRP #### [facility] [address] [place], [address] SED RATE - CRPon 09-24-2024 CRP EXTENDED RANGE 2.42 MG/L Normal (0.00 - 5.00) [facility] Comment on above: Performed By: #### Trina BC-4A, ESRCRP #### [facility] [address] [place], [address] SED RATE WEST. 12 MM/HR Normal (0 - 24) [facility] Comment on above: Performed By: #### Trina BC-4A, ESRCRP #### [facility] [address] [place], [address] 36on 09-20-2024 36 Patient will need appointment for further refills Normal [facility] CBC, ALB, ALT, AST, ALK AND CREAon 03-25-2024 Albumin [Mass/Vol] 4.4 g/dL Normal (3.5 - 5.0) [facility] Comment on above: Order Comment: FACIL ITY: [facility] [id number] Performed By: #### C BC/2A, ESRCRP, B12+ #### [facility] [address] [place], [address] ALK PHOS 76 U/L Normal (38 - 126) [facility] Comment on above: Order Comment: FACIL ITY: [facility] [id number] Performed By: #### Trina BC/2A, ESRCRP, B12+ #### [facility] [address] [place], [address] ALT [Catalytic activity/Vol] 27 U/L Normal (1 - 45) [facility] Comment on above: Order Comment: FACIL ITY: [facility] [id number] Performed By: #### C BC/2A, ESRCRP, B12+ #### [facility] [address] [place], [address] AST [Catalytic activity/Vol] 31 U/L Normal (15 - 46) [facility] Comment on above: Order Comment: FACIL ITY: [facility] [id number] Performed By: #### C BC/2A, ESRCRP, B12+ #### [facility] [address] [place], [address] Creatinine [Mass/Vol] 0.78 mg/dL Normal (0.66 - 1.25) [facility] Comment on above: Order Comment: FACIL ITY: [facility] [id number] Performed By: #### C BC/2A, ESRCRP, B12+ #### [facility] [address] [place], [address] GFR- AMER 119.8 ML/M1.7 Normal (60.0 - 161.8) [facility] [place] Comment on above: Order Comment: FACIL ITY: [facility] [id number] Performed By: #### C BC/2A, ESRCRP, B12+ #### [facility] [address] [place], [address] GFR-NON AFRIC-AMER 99.0 ML/M1.7 Normal (60.0 - 133.8) [facility] Comment on above: Order Comment: FACIL ITY: [facility] [id number] Performed By: #### C BC/2A, ESRCRP, B12+ #### [facility] [address] [place], [address] Hematocrit (Bld) [Volume fraction] 46.9 % Normal (42.0 - 52.0) [facility] Comment on above: Order Comment: FACIL ITY: [facility] [id number] Performed By: #### C BC/2A, ESRCRP, B12+ #### [facility] [address] [place], [address] Hemoglobin (Bld) [Mass/Vol] 15.4 g/dL Normal (14.0 - 18.0) [facility] Comment on above: Order Comment: FACIL ITY: [facility] [id number] Performed By: #### C BC/2A, ESRCRP, B12+ #### [facility] [address] [place], [address] MCH (RBC) [Entitic mass] 31.3 pg Normal (27.0 - 33.0) [facility] Comment on above: Order Comment: FACIL ITY: [facility] [id number] Performed By: #### C BC/2A, ESRCRP, B12+ #### [facility] [address] [place], [address] MCHC (RBC) [Mass/Vol] 32.8 g/dL Normal (30.0 - 37.0) [facility] [place] Comment on above: Order Comment: FACIL ITY: [facility] [id number] Performed By: #### C BC/2A, ESRCRP, B12+ #### [facility] [place] [facility] [address] [place], [address] MCV (RBC) [Entitic vol] 95.3 fL High (80.0 - 94.0) [facility] Comment on above: Order Comment: FACIL ITY: [facility] [id number] Performed By: #### C BC/2A, ESRCRP, B12+ #### [facility] [address] [place], [address] PLT 248 x10^3ul Normal (130 - 400) [facility] Comment on above: Order Comment: FACIL ITY: [facility] [id number] Performed By: #### C BC/2A, ESRCRP, B12+ #### [facility] [address] [place], [address] RBC 4.92 x10^6ul Normal (4.70 - 6.10) [facility] Comment on above: Order Comment: FACIL ITY: [facility] [id number] Performed By: #### C BC/2A, ESRCRP, B12+ #### [facility] [address] [place], [address] WBC 11.32 x10^3ul High (3.80 - 10.60) [facility] Comment on above: Order Comment: FACIL ITY: [facility] [id number] Performed By: #### C BC/2A, ESRCRP, B12+ #### [facility] [place] [facility] [address] [place], [address] SED RATE - CRPon 03-25-2024 CRP EXTENDED RANGE 1.17 MG/L Normal (0.00 - 3.20) [facility] Comment on above: Performed By: #### C BC/2A, ESRCRP, B12+ #### [facility] [address] [place], [address] SED RATE WEST. 5 MM/HR Normal (0 - 24) [facility] Comment on above: Performed By: #### C BC/2A, ESRCRP, B12+ #### [facility] [place] [facility] [address] [place], [address] VIT B12 AND FOLATEon 024 Cobalamin (Vitamin B12) [Mass/Vol] 329 pg/mL Normal (239 - 931) [facility] Comment on above: Performed By: #### C BC/2A, ESRCRP, B12+ #### [facility] [address] [place], [address] FOLIC ACID 5.6 NG/ML Normal (2.8 - 20.0) [facility] Comment on above: Performed By: #### C BC/2A, ESRCRP, B12+ #### [facility] [address] [place], [address] 36on 02-10-2024 36 Regarding stress test result from 01/23/2024: MD Jenna Arana MA Stress test was ok, follow up in 1 year. LM on patient's VM. Normal [facility] Office Visiton 01-05-2024 Follow-up visit [id number] Bipin Ulloa 1955 M Date Provider Department Center 01/05/2024 MARCIANO MEZA KIEL [place] Family History Problem Relation Age of Onset Heart failure Father Coronary artery disease Father Family Status - Relation Status Age at Father Level of Service:72013 [place] OFFICE/OUTPATIENT ESTABLISHED MOD MDM 30 MIN Normal [facility] CBC, ALB, ALT, AST, ALK AND CREAon 12-12-2023 Albumin [Mass/Vol] 4.8 g/dL Normal (3.5 - 5.0) [facility] Comment on above: Order Comment: 1LAV 1SST FACILITY: [facility] [id number] Performed By: #### C BC/2A, ESRCRP, VD25 #### [facility] [address] [facility], [address] ALK PHOS 71 U/L Normal (38 - 126) [facility] Comment on above: Order Comment: 1LAV 1SST FACILITY: [facility] [id number] Performed By: #### C BC/2A, ESRCRP, VD25 #### [facility] [address] [facility], [address] ALT [Catalytic activity/Vol] 23 U/L Normal (1 - 45) [facility] Comment on above: Order Comment: 1LAV 1SST FACILITY: [facility] [id number] Performed By: #### C BC/2A, ESRCRP, VD25 #### [facility] [address] [place], [address] AST [Catalytic activity/Vol] 34 U/L Normal (15 - 46) [facility] Comment on above: Order Comment: 1LAV 1SST FACILITY: [facility] [id number] Performed By: #### C BC/2A, ESRCRP, VD25 #### [facility] [address] [facility], [address] Creatinine [Mass/Vol] 0.62 mg/dL Low (0.66 - 1.25) [facility] Comment on above: Order Comment: 1LAV 1SST [facility]AC[facility]: [facility] [id number] Performed By: #### Trina BC/2A, ESRCRP, VD25 #### [facility] [address] [place], [address] GFR- AMER 156.1 ML/M1.7 Normal (60.0 - 161.8) [facility] Comment on above: Order Comment: 1LAV 1SST FACILITY: [facility] [id number] Performed By: #### Trina BC/2A, ESRCRP, VD25 #### [facility] [place] [facility] [address] [facility], [address] GFR-NON AFRIC-AMER 129.0 ML/M1.7 Normal (60.0 - 133.8) [facility] [place] Comment on above: Order Comment: 1LAV 1SST FACILITY: [facility] [id number] Performed By: #### Trina BC/2A, ESRCRP, VD25 #### [facility] [place] [facility] [address] [facility], [address] Hematocrit (Bld) [Volume fraction] 46.8 % Normal (42.0 - 52.0) [facility] Comment on above: Order Comment: 1LAV 1SST FACILITY: [facility] [id number] Performed By: #### Trina BC/2A, ESRCRP, VD25 #### [facility] [place] [facility] [address] [facility], [address] Hemoglobin (Bld) [Mass/Vol] 15.7 g/dL Normal (14.0 - 18.0) [facility] [place] Comment on above: Order Comment: 1LAV 1SST FACILITY: [facility] [id number] Performed By: #### Trina BC/2A, ESRCRP, VD25 #### [facility] [address] [facility], [address] MCH (RBC) [Entitic mass] 32.0 pg Normal (27.0 - 33.0) [facility] Comment on above: Order Comment: 1LAV 1SST FACILITY: [facility] [id number] Performed By: #### Trina BC/2A, ESRCRP, VD25 #### [facility] [address] [place], [address] MCHC (RBC) [Mass/Vol] 33.5 g/dL Normal (30.0 - 37.0) [facility] Comment on above: Order Comment: 1LAV 1SST FACILITY: [facility] [id number] Performed By: #### Trina BC/2A, ESRCRP, VD25 #### [facility] [place] [facility] [address] [facility], [address] MCV (RBC) [Entitic vol] 95.5 fL High (80.0 - 94.0) [facility] Comment on above: Order Comment: 1LAV 1SST FACILITY: [facility] [id number] Performed By: #### Trina BC/2A, ESRCRP, VD25 #### [facility] [address] [facility], [address] PLT 239 x10^3ul Normal (130 - 400) [facility] Comment on above: Order Comment: 1LAV 1SST FACILITY: [facility] [id number] Performed By: #### Trina BC/2A, ESRCRP, VD25 #### [facility] [address] [place], [address] RBC 4.90 x10^6ul Normal (4.70 - 6.10) [facility] Comment on above: Order Comment: 1LAV 1SST FACILITY: [facility] [id number] Performed By: #### Trina BC/2A, ESRCRP, VD25 #### [facility] [address] [place], [address] WBC 7.82 x10^3ul Normal (3.80 - 10.60) [facility] Comment on above: Order Comment: 1LAV 1SST FACILITY: [facility] [id number] Performed By: #### C BC/2A, ESRCRP, VD25 #### [facility] [address] [place], [address] SED RATE - CRPon 12-12-2023 CRP EXTENDED RANGE 2.59 MG/L Normal (0.00 - 3.20) [facility] Comment on above: Performed By: #### C BC/2A, ESRCRP, VD25 #### [facility] [address] [place], [address] SED RATE WEST. 14 MM/HR Normal (0 - 24) [facility] Comment on above: Performed By: #### C BC/2A, ESRCRP, VD25 #### [facility] [address] [place], [address] VITAMIN D, 25 HYDROXYon VITAMIN D, 25 45.1 NG/ML Normal (30.0 - 100.0) [facility] Comment on above: Result Comment: * * * VITAMIN D, 25 HYDROXY GENERAL GUIDELINE * * * DEFICIENCY = < OR = 20.0 NG/ML INSUFFICIENCY = 20.1 - 29.9 NG/ML SUFFICIENCY = 30.0 - 100.0 NG/ML TOXICITY = > 100.1 NG/ML Performed By: #### C BC/2A, ESRCRP, VD25 #### [facility] [address] [place], [address] FREE T3on 12-04-2022 FREE T3 2.98 pg/mlL Normal 2.18-3.98 [facility] Comment on above: Performed By: #### S EDR #### [facility] [address] [place] [address] Dr. Wilmer Francis FREE T4on 12-04-2022 Free T4 [Mass/Vol] 1.25 ng/dL Normal 0.76-1.46 [facility] Comment on above: Performed By: #### B ALUMNAE SECRETARY #### [facility] [address] [place] [address] [address] [address] Wilmer Francis LIPID PROFILEon 12-04-2022 CHOL-HDL RATIO NORM SEE BELOW Normal [facility] Comment on above: Result Comment: 3.3 - 4.4 LOW RISK 4.4 - 7.1 AVERAGE RISK 7.1 - 11.0 MODERATE RISK >11.0 HIGH RISK Performed By: #### S EDR #### [facility] [address] [address] [address] Wilmer Francis Cholesterol [Mass/Vol] 137 mg/dL Normal <=200 [facility] Comment on above: Performed By: #### S EDR #### [facility] [address] [address] [address] Wilmer Francis Cholesterol in HDL [Mass/Vol] 53 mg/dL Normal 40-60 [facility] Comment on above: Performed By: #### S EDR #### [facility] [address] [address] [address] Wilmer Francis Cholesterol in LDL [Mass/Vol] 66.2 mg/dL Normal [facility] Comment on above: Performed By: #### S EDR #### [facility] [address] [address] [address] Wilmer Francis Cholesterol.total/Cho lesterol in HDL [Mass ratio] 2.6 {ratio} Normal [facility] Comment on above: Performed By: #### S EDR #### [facility] [address] [address] [address] Wilmer Francis HDL NORMAL > or = 60 mg/dl - LOW CARDIOVASCULAR RISK <40 mg/dl - HIGH CARDIOVASCULAR RISK Normal [facility] Comment on above: Performed By: #### S EDR #### [facility] [address] [address] [address] Wilmer Francis LDL CALC NORMAL SEE BELOW Normal [facility] Comment on above: Result Comment: <100 mg/dl OPTIMAL 100 - 129 mg/dl NEAR OR ABOVE OPTIMAL 130 - 159 mg/dl BORDERLINE HIGH 160 - 189 mg/dl HIGH >190 mg/dl VERY HIGH Performed By: #### S EDR #### [facility] [address] [address] [address] Wilmer Francis Triglyceride [Mass/Vol] 89 mg/dL Normal <=150 [facility] Comment on above: Performed By: #### S EDR #### [facility] [address] [place] [address] Dr. Wilmer Francis VLDL CALC 17.8 mg/dL Normal [facility] Comment on above: Performed By: #### S EDR #### [facility] [address] [place] [address] Dr. Wilmer Francis PROF 14(COMP METB)on 023 Albumin [Mass/Vol] 3.5 g/dL Normal 3.4-5.0 [facility] Comment on above: Performed By: #### S EDR #### [facility] [address] [place] [address] Dr. Wilmer Francis Albumin/Globulin [Mass ratio] 0.9 {ratio} Normal [facility] Comment on above: Performed By: #### S EDR #### [facility] [address] [place] [address] Dr. Wilmer Francis ALP [Catalytic activity/Vol] 76 U/L Normal 46-116 [facility] Comment on above: Performed By: #### S EDR #### [facility] [address] [place] [address] Dr. Wilmer Francis ALT [Catalytic activity/Vol] 25 U/L Normal 16-63 [facility] Comment on above: Performed By: #### S EDR #### [facility] [address] [place] [address] Dr. Wilmer Francis Anion gap [Moles/Vol] 12.6 mmol/L Normal [facility] Comment on above: Performed By: #### S EDR #### [facility] [address] [place] [address] Dr. Wilmer Francis AST [Catalytic activity/Vol] 17 U/L Normal 15-37 [facility] Comment on above: Performed By: #### S EDR #### [facility] [address] [place] [address] Dr. Wilmer Francis Bilirubin [Mass/Vol] 0.4 mg/dL Normal 0.2-1.0 [facility] Comment on above: Performed By: #### S EDR #### [facility] [address] [place] [address] Dr. Wilmer Francis Calcium [Mass/Vol] 9.5 mg/dL Normal 8.5-10.1 [facility] Comment on above: Performed By: #### S EDR #### [facility] [address] [address] [address] Wilmer Francis Chloride [Moles/Vol] 98 mmol/L Normal 98-107 [facility] Comment on above: Performed By: #### S EDR #### [facility] [address] [place] [address] Dr. Wilmer Francis CO2 [Moles/Vol] 31.0 mmol/L Normal 21.0-32.0 [facility] Comment on above: Performed By: #### S EDR #### [facility] [address] [place] [address] Dr. Wilmer Francis Creatinine [Mass/Vol] 1.13 mg/dL Normal 0.70-1.30 [facility] Comment on above: Performed By: #### S EDR #### [facility] [address] [place] [address] Dr. Wilmer Francis EGFR-AF KYRGYZ >60 Normal >=60 [facility] Comment on above: Performed By: #### S EDR #### [facility] [address] [place] [address] Dr. Wilmer Francis EGFR-NON AF KYRGYZ >60 Normal >=60 [facility] Comment on above: Performed By: #### S EDR #### [facility] [address] [place] [address] Dr. Wilmer Francis Globulin (S) [Mass/Vol] 4.1 g/dL Normal [facility] Comment on above: Performed By: #### S EDR #### [facility] [address] [place] [address] Dr. Wilmer Francis Glucose [Mass/Vol] 123 mg/dL Critically high 74-[address] [facility] Comment on above: Performed By: #### S EDR #### [facility] [address] [address] [address] Wilmer Francis Potassium [Moles/Vol] 4.6 mmol/L Normal 3.5-5.1 [facility] Comment on above: Performed By: #### S EDR #### [facility] [address] [address] [address] Wilmer Francis Protein [Mass/Vol] 7.6 g/dL Normal 6.4-8.2 [facility] Comment on above: Performed By: #### S EDR #### [facility] [address] [address] [address] Wilmer Francis Sodium [Moles/Vol] 137 mmol/L Normal 136-145 [facility] Comment on above: Performed By: #### S EDR #### [facility] [address] [address] [address] Wilmer Francis Urea nitrogen [Mass/Vol] 14.0 mg/dL Normal 7.0-18.0 [facility] Comment on above: Performed By: #### S EDR #### [facility] [address] [address] [address] Wilmer Francis Urea nitrogen/Creatinine [Mass ratio] 12.4 mg/mg Normal [facility] Comment on above: Performed By: #### S EDR #### [facility] [address] [address] [address] Wilmer Francis TSHon 12-04-2022 TSH 0.479 uIU/mL Normal 0.358-3.740 [facility] Comment on above: Performed By: #### S EDR #### [facility] [address] [address] [address] Wilmer Francis ALBUMINon 11-28-2022 Albumin [Mass/Vol] 3.3 g/dL Critically low 3.4-5.0 [facility] Comment on above: Performed By: #### P RTELEC #### [facility] [address] [address] [address] Wilmer Francis ALKALINE PHOSPHAon ALP [Catalytic activity/Vol] 72 U/L Normal 46-116 [facility] Comment on above: Performed By: #### P RTELEC #### [facility] [address] [place] [address] Dr. Wilmer Francis CBC AUTO DIFFon 11-28-2022 BASO # 0.1 103/ul Normal 0.0-0.1 [facility] Comment on above: Performed By: #### S EDR #### [facility] [address] [place] [address] Dr. Wilmer Francis Basophils/100 WBC (Bld) 0.7 % Normal 0.2-2.0 [facility] Comment on above: Performed By: #### S EDR #### [facility] [address] [place] [address] Dr. Wilmer Francis EO # 0.8 103/ul Critically high 0.0-0.7 [facility] Comment on above: Performed By: #### S EDR #### [facility] [address] [place] [address] Dr. Wilmer Francis Eosinophils/100 WBC (Bld) 9.1 % Critically high 0.9-7.0 [facility] Comment on above: Performed By: #### S EDR #### [facility] [address] [place] [address] Dr. Wilmer Francis Erythrocyte distribution width (RBC) [Ratio] 13.9 % Normal 11.0-15.0 [facility] Comment on above: Performed By: #### S EDR #### [facility] [address] [place] [address] Dr. Wilmer Francis Hematocrit (Bld) [Volume fraction] 39.4 % Critically low 42.0-54.0 [facility] Comment on above: Performed By: #### S EDR #### [facility] [address] [place] [address] Dr. Wilmer Francis Hemoglobin (Bld) [Mass/Vol] 13.2 g/dL Critically low 14.0-18.0 [facility] Comment on above: Performed By: #### S EDR #### [facility] [address] [address] [address] Wilmer Francis IG # 0.11 10e3/ul Critically high 0.00-0.03 [facility] Comment on above: Performed By: #### S EDR #### [facility] [address] [address] [address] Wilmer Francis IG % 1.3 % Critically high 0.0-0.5 [facility] Comment on above: Performed By: #### S EDR #### [facility] [address] [address] [address] Wilmer Francis LYMPH # 1.9 103/ul Normal 1.2-3.8 [facility] Comment on above: Performed By: #### S EDR #### [facility] [address] [place] [address] Dr. Wilmer Francis Lymphocytes/100 WBC (Bld) 21.8 % Normal 20.5-60.0 [facility] Comment on above: Performed By: #### S EDR #### [facility] [address] [place] [address] Dr. Wilmer Francis MANUAL DIFF REQ NO Normal [facility] Comment on above: Performed By: #### S EDR #### [facility] [address] [place] [address] Dr. Wilmer Francis MCH (RBC) [Entitic mass] 28.3 pg Normal 25.9-34.0 [facility] Comment on above: Performed By: #### S EDR #### [facility] [address] [address] [address] Wilmer Francis MCHC (RBC) [Mass/Vol] 33.5 g/dL Normal 29.9-35.2 [facility] Comment on above: Performed By: #### S EDR #### [facility] [address] [place] [address] Dr. Wilmer Francis MCV (RBC) [Entitic vol] 84.5 fL Normal 80.0-94.0 [facility] Comment on above: Performed By: #### S EDR #### [facility] [address] [address] [address] Wilmer Francis MONO # 0.9 103/ul Critically high 0.3-0.8 [facility] Comment on above: Performed By: #### S EDR #### [facility] [address] [address] [address] Wilmer Francis Monocytes/100 WBC (Bld) 9.9 % Normal 1.7-12.0 [facility] Comment on above: Performed By: #### S EDR #### [facility] [address] [address] [address] Wilmer Francis NEUT # 4.9 103/ul Normal 1.4-6.5 [facility] Comment on above: Performed By: #### S EDR #### [facility] [address] [address] [address] Wilmer Francis Neutrophils/100 WBC (Bld) 57.2 % Normal 43.0-75.0 [facility] Comment on above: Performed By: #### S EDR #### [facility] [address] [address] [address] Wilmer Francis Platelet mean volume (Bld) [Entitic vol] 8.3 fL Critically low 9.5-13.5 [facility] Comment on above: Performed By: #### S EDR #### [facility] [address] [place] [address] Dr. Wilmer Francis PLT 329 103/ul Normal 150-450 [facility] Comment on above: Performed By: #### S EDR #### [facility] [address] [address] [address] Wilmer Francis RBC 4.66 106/ul Critically low 4.70-6.10 [facility] Comment on above: Performed By: #### S EDR #### [facility] [address] [address] [address] Wilmer Francis WBC 8.6 103/ul Normal 4.0-11.0 [facility] Comment on above: Performed By: #### S EDR #### [facility] [address] [address] [address] Wilmer Francis CREATININEon 11-28-2022 Creatinine [Mass/Vol] 1.00 mg/dL Normal 0.70-1.30 [facility] Comment on above: Performed By: #### P RTELEC #### [facility] [address] [place] [address] Dr. Wilmer Francis EGFR-AF KYRGYZ >60 Normal >=60 [facility] Comment on above: Performed By: #### P RTELEC #### [facility] [address] [place] [address] Dr. Wilmer Francis EGFR-NON AF KYRGYZ >60 Normal >=60 [facility] Comment on above: Performed By: #### P RTELEC #### [facility] [address] [place] [address] Dr. Wilmer Francis CRPon 11-28-2022 CRP 2.5 mg/dL Critically high <=1.0 [facility] Comment on above: Performed By: #### P RTELEC #### [facility] [address] [place] [address] Dr. Wilmer Francis SED RATE [facility] 2022 SED RATE 71 mm/hr Critically high <=20 [facility] Comment on above: Performed By: #### S EDR #### [facility] [address] [place] [address] Dr. Wilmer Francis SGOTon 11-28-2022 AST [Catalytic activity/Vol] 16 U/L Normal 15-37 [facility] Comment on above: Performed By: #### P RTELEC #### [facility] [address] [place] [address] Dr. Wilmer Francis SGPTon 11-28-2022 ALT [Catalytic activity/Vol] 27 U/L Normal 16-63 [facility] Comment on above: Performed By: #### P RTELEC #### [facility] [address] [place] [address] ORBIT WO CONon [...] KEVIN STANLEY Date: 2022-10-31 09:47 Normal [facility] CT CHEST WO CONon 10-22-2022 CT CHEST [...] GIAN MELENDEZ Date: 2022-10-22 12:17 Normal [facility] US TUTU DOP LEG BILon 023 US [...] by: KEVIN STANLEY Date: 2022-09-06 16:39 Normal [facility] CT LUNG CANCER SCREENINGon 0 07-16-2022 [...] by: GIAN MELENDEZ Date: 2022-07-16 10:02 Normal [facility] FREE T3on 07-16-2022 FREE T3 2.97 pg/mlL Normal 2.18-3.98 [facility] Comment on above: Performed By: #### T SH, CRP #### [facility] [address] [address] [address] Wilmer Francis FREE T4on 07-16-2022 Free T4 [Mass/Vol] 1.15 ng/dL Normal 0.76-1.46 [facility] Comment on above: Performed By: #### T SH, CRP #### [facility] [address] [address] [address] Wilmer Francis LIPID PROFILEon 07-16-2022 CHOL-HDL RATIO NORM SEE BELOW Normal [facility] Comment on above: Result Comment: 3.3 - 4.4 LOW RISK 4.4 - 7.1 AVERAGE RISK 7.1 - 11.0 MODERATE RISK >11.0 HIGH RISK Performed By: #### B ALUMNAE SECRETARY #### [facility] [address] [place] [address] Dr. Wilmer Francis Cholesterol [Mass/Vol] 131 mg/dL Normal <=200 [facility] Comment on above: Performed By: #### B ALUMNAE SECRETARY #### [facility] [address] [address] [address] Wilmer Francis Cholesterol in HDL [Mass/Vol] 58 mg/dL Normal 40-60 [facility] Comment on above: Performed By: #### B ALUMNAE SECRETARY #### [facility] [address] [address] [address] Wilmer Francis Cholesterol in LDL [Mass/Vol] 57.2 mg/dL Normal [facility] Comment on above: Performed By: #### B ALUMNAE SECRETARY #### [facility] [address] [address] [address] Wilmer Francis Cholesterol.total/Cho lesterol in HDL [Mass ratio] 2.3 {ratio} Normal [facility] Comment on above: Performed By: #### B ALUMNAE SECRETARY #### [facility] [address] [address] [address] Wilmer Francis HDL NORMAL > or = 60 mg/dl - LOW CARDIOVASCULAR RISK <40 mg/dl - HIGH CARDIOVASCULAR RISK Normal [facility] Comment on above: Performed By: #### B ALUMNAE SECRETARY #### [facility] [address] [address] [address] Wilmer Francis LDL CALC NORMAL SEE BELOW Normal [facility] Comment on above: Result Comment: <100 mg/dl OPTIMAL 100 - 129 mg/dl NEAR OR ABOVE OPTIMAL 130 - 159 mg/dl BORDERLINE HIGH 160 - 189 mg/dl HIGH >190 mg/dl VERY HIGH Performed By: #### B ALUMNAE SECRETARY #### [facility] [address] [place] [address] Dr. Wilmer Francis Triglyceride [Mass/Vol] 79 mg/dL Normal <=150 [facility] Comment on above: Performed By: #### B ALUMNAE SECRETARY #### [facility] [address] [place] [address] Dr. Wilmer Francis VLDL CALC 15.8 mg/dL Normal [facility] Comment on above: Performed By: #### B ALUMNAE SECRETARY #### [facility] [address] [place] [address] Dr. Wilmer Francis PROF 14(COMP METB)on 023 Albumin [Mass/Vol] 3.2 g/dL Critically low 3.4-5.0 [facility] Comment on above: Performed By: #### B ALUMNAE SECRETARY #### [facility] [address] [place] [address] Dr. Wilmer Francis Albumin/Globulin [Mass ratio] 0.7 {ratio} Normal [facility] Comment on above: Performed By: #### B ALUMNAE SECRETARY #### [facility] [address] [place] [address] Dr. Wilmer Francis ALP [Catalytic activity/Vol] 75 U/L Normal 46-116 [facility] Comment on above: Performed By: #### B ALUMNAE SECRETARY #### [facility] [address] [place] [address] Dr. Wilmer Francis ALT [Catalytic activity/Vol] 23 U/L Normal 16-63 [facility] Comment on above: Performed By: #### B ALUMNAE SECRETARY #### [facility] [address] [place] [address] Dr. Wilmer Francis Anion gap [Moles/Vol] 11.7 mmol/L Normal [facility] Comment on above: Performed By: #### B ALUMNAE SECRETARY #### [facility] [address] [place] [address] Dr. Wilmer Francis AST [Catalytic activity/Vol] 16 U/L Normal 15-37 [facility] Comment on above: Performed By: #### B ALUMNAE SECRETARY #### [facility] [address] [place] [address] Dr. Wilmer Francis Bilirubin [Mass/Vol] 0.4 mg/dL Normal 0.2-1.0 [facility] Comment on above: Performed By: #### B ALUMNAE SECRETARY #### [facility] [address] [place] [address] Dr. Wilmer Francis Calcium [Mass/Vol] 9.5 mg/dL Normal 8.5-10.1 [facility] Comment on above: Performed By: #### B ALUMNAE SECRETARY #### [facility] [address] [place] [address] Dr. Wilmer Francis Chloride [Moles/Vol] 103 mmol/L Normal 98-107 [facility] Comment on above: Performed By: #### B ALUMNAE SECRETARY #### [facility] [address] [place] [address] Dr. Wilmer Francis CO2 [Moles/Vol] 31.8 mmol/L Normal 21.0-32.0 [facility] Comment on above: Performed By: #### B ALUMNAE SECRETARY #### [facility] [address] [place] [address] Dr. Wilmer Francis Creatinine [Mass/Vol] 0.80 mg/dL Normal 0.70-1.30 [facility] Comment on above: Performed By: #### B ALUMNAE SECRETARY #### [facility] [address] [place] [address] Dr. Wilmer Francis EGFR-AF KYRGYZ >60 Normal >=60 [facility] Comment on above: Performed By: #### B ALUMNAE SECRETARY #### [facility] [address] [place] [address] Dr. Wilmer Francis EGFR-NON AF KYRGYZ >60 Normal >=60 [facility] Comment on above: Performed By: #### B ALUMNAE SECRETARY #### [facility] [address] [place] [address] Dr. Wilmer Frnacis Globulin (S) [Mass/Vol] 4.4 g/dL Normal [facility] Comment on above: Performed By: #### B ALUMNAE SECRETARY #### [facility] [address] [address] [address] Wilmer Francis Glucose [Mass/Vol] 145 mg/dL Critically high 74-106 [facility] Comment on above: Performed By: #### B ALUMNAE SECRETARY #### [facility] [address] [address] [address] Wilmer Francis Potassium [Moles/Vol] 4.5 mmol/L Normal 3.5-5.1 [facility] Comment on above: Performed By: #### B ALUMNAE SECRETARY #### [facility] [address] [address] [address] Wilmer Francis Protein [Mass/Vol] 7.6 g/dL Normal 6.4-8.2 [facility] Comment on above: Performed By: #### B ALUMNAE SECRETARY #### [facility] [address] [address] [address] Wilmer Francis Sodium [Moles/Vol] 142 mmol/L Normal 136-145 [facility] Comment on above: Performed By: #### B ALUMNAE SECRETARY #### [facility] [address] [place] [address] Dr. Wilmer Francis Urea nitrogen [Mass/Vol] 12.0 mg/dL Normal 7.0-18.0 [facility] Comment on above: Performed By: #### B ALUMNAE SECRETARY #### [facility] [address] [address] [address] Wilmer Francis Urea nitrogen/Creatinine [Mass ratio] 15.0 mg/mg Normal [facility] Comment on above: Performed By: #### B ALUMNAE SECRETARY #### [facility] [address] [address] [address] Wilmer Francis TSHon 07-16-2022 TSH 0.770 uIU/mL Normal 0.358-3.740 [facility] Comment on above: Performed By: #### T SH, CRP #### [facility] [address] [address] [address] Wilmer Francis CBC AUTO DIFFon 06-22-2022 BASO # 0.0 103/ul Normal 0.0-0.1 [facility] Comment on above: Performed By: #### S EDR #### [facility] [address] [place] [address] Dr. Wilmer Francis Basophils/100 WBC (Bld) 0.1 % Critically low 0.2-2.0 [facility] Comment on above: Performed By: #### S EDR #### [facility] [address] [place] [address] Dr. Wilmer Francis EO # 0.0 103/ul Normal 0.0-0.7 [facility] Comment on above: Performed By: #### S EDR #### [facility] [address] [place] [address] Dr. Wilmer Francis Eosinophils/100 WBC (Bld) 0.0 % Critically low 0.9-7.0 [facility] Comment on above: Performed By: #### S EDR #### [facility] [address] [place] [address] Dr. Wilmer Francis Erythrocyte distribution width (RBC) [Ratio] 12.7 % Normal 11.0-15.0 [facility] Comment on above: Performed By: #### S EDR #### [facility] [address] [place] [address] Dr. Wilmer Francis Hematocrit (Bld) [Volume fraction] 36.5 % Critically low 42.0-54.0 [facility] Comment on above: Performed By: #### S EDR #### [facility] [address] [place] [address] Dr. Wilmer Francis Hemoglobin (Bld) [Mass/Vol] 12.5 g/dL Critically low 14.0-18.0 [facility] Comment on above: Performed By: #### S EDR #### [facility] [address] [place] [address] Dr. Wilmer Francis IG # 0.08 10e3/ul Critically high 0.00-0.03 [facility] Comment on above: Performed By: #### S EDR #### [facility] [address] [place] [address] Dr. Wilmer Francis IG % 0.6 % Critically high 0.0-0.5 [facility] Comment on above: Performed By: #### S EDR #### [facility] [address] [place] [address] Dr. Wilmer Francis LYMPH # 0.8 103/ul Critically low 1.2-3.8 [facility] Comment on above: Performed By: #### S EDR #### [facility] [address] [place] [address] Dr. Wilmer Francis Lymphocytes/100 WBC (Bld) 5.9 % Critically low 20.5-60.0 [facility] Comment on above: Performed By: #### S EDR #### [facility] [address] [place] [address] Dr. Wilmer Francis MANUAL DIFF REQ NO Normal [facility] Comment on above: Performed By: #### S EDR #### [facility] [address] [place] [address] Dr. Wilmer Francis MCH (RBC) [Entitic mass] 30.5 pg Normal 25.9-34.0 [facility] Comment on above: Performed By: #### S EDR #### [facility] [address] [place] [address] Dr. Wilmer Francis MCHC (RBC) [Mass/Vol] 34.2 g/dL Normal 29.9-35.2 [facility] Comment on above: Performed By: #### S EDR #### [facility] [address] [place] [address] Dr. Wilmer Francis MCV (RBC) [Entitic vol] 89.0 fL Normal 80.0-94.0 [facility] Comment on above: Performed By: #### S EDR #### [facility] [address] [place] [address] Dr. Wilmer Francis MONO # 0.8 103/ul Normal 0.3-0.8 [facility] Comment on above: Performed By: #### S EDR #### [facility] [address] [place] [address] Dr. Wilmer Francis Monocytes/100 WBC (Bld) 6.0 % Normal 1.7-12.0 [facility] Comment on above: Performed By: #### S EDR #### [facility] [address] [address] [address] Wilmer Francis NEUT # 11.3 103/ul Critically high 1.4-6.5 [facility] Comment on above: Performed By: #### S EDR #### [facility] [address] [address] [address] Wilmer Francis Neutrophils/100 WBC (Bld) 87.4 % Critically high 43.0-75.0 [facility] Comment on above: Performed By: #### S EDR #### [facility] [address] [place] [address] Dr. Wilmer Francis Platelet mean volume (Bld) [Entitic vol] 9.1 fL Critically low 9.5-13.5 [facility] Comment on above: Performed By: #### S EDR #### [facility] [address] [address] [address] Wilmer Francis PLT 347 103/ul Normal 150-450 [facility] Comment on above: Performed By: #### S EDR #### [facility] [address] [place] [address] Dr. Wilmer Francis RBC 4.10 106/ul Critically low 4.70-6.10 [facility] Comment on above: Performed By: #### S EDR #### [facility] [address] [place] [address] Dr. Wilmer Francis WBC 13.0 103/ul Critically high 4.0-11.0 [facility] Comment on above: Performed By: #### S EDR #### [facility] [address] [place] [address] Dr. Wilmer Francis CRPon 06-22-2022 CRP 3.1 mg/dL Critically high <=1.0 [facility] Comment on above: Performed By: #### P RTELEC #### [facility] [address] [place] [address] Dr. Wilmer Francis PROF CHEM 8 (BAS METB)on Anion gap [Moles/Vol] 9.9 mmol/L Normal [facility] Comment on above: Performed By: #### T SH, CRP #### [facility] [address] [place] [address] Dr. Wilmer Francis Calcium [Mass/Vol] 9.7 mg/dL Normal 8.5-10.1 [facility] Comment on above: Performed By: #### T SH, CRP #### [facility] [address] [address] [address] Wilmer Francis Chloride [Moles/Vol] 97 mmol/L Critically low 98-107 [facility] Comment on above: Performed By: #### T SH, CRP #### [facility] [address] [place] [address] Dr. Wilmer Francis CO2 [Moles/Vol] 31.6 mmol/L Normal 21.0-32.0 [facility] Comment on above: Performed By: #### T OLIVIA, CRP #### [facility] [address] [place] [address] Dr. Wilmer Francis Creatinine [Mass/Vol] 0.91 mg/dL Normal 0.70-1.30 [facility] Comment on above: Performed By: #### T OLIVIA, CRP #### [facility] [address] [place] [address] Dr. Wilmer Francis EGFR-AF KYRGYZ >60 Normal >=60 [facility] Comment on above: Performed By: #### T SH, CRP #### [facility] [address] [place] [address] Dr. Wilmer Francis EGFR-NON AF KYRGYZ >60 Normal >=60 [facility] Comment on above: Performed By: #### T SH, CRP #### [facility] [address] [place] [address] Dr. Wilmer Francis Glucose [Mass/Vol] 222 mg/dL Critically high 74-106 [facility] Comment on above: Performed By: #### T SH, CRP #### [facility] [address] [place] [address] Dr. Wilmer Francis Potassium [Moles/Vol] 4.4 mmol/L Normal 3.5-5.1 [facility] Comment on above: Performed By: #### T SH, CRP #### [facility] [address] [address] [address] Wilmer Francis Sodium [Moles/Vol] 134 mmol/L Critically low 136-145 [facility] Comment on above: Performed By: #### T SH, CRP #### [facility] [address] [address] [address] Wilmer Francis Urea nitrogen [Mass/Vol] 19.0 mg/dL Critically high 7.0-18.0 [facility] Comment on above: Performed By: #### T SH, CRP #### [facility] [address] [place] [address] Dr. Wilmer Francis Urea nitrogen/Creatinine [Mass ratio] 20.9 mg/mg Normal [facility] Comment on above: Performed By: #### T SH, CRP #### [facility] [address] [place] [address] Dr. Wilmer Francis Anion gap [Moles/Vol] 9.5 mmol/L Normal [facility] Comment on above: Performed By: #### P RTELEC #### [facility] [address] [place] [address] Dr. Wilmer Francis Calcium [Mass/Vol] 9.4 mg/dL Normal 8.5-10.1 [facility] Comment on above: Performed By: #### P RTELEC #### [facility] [address] [place] [address] Dr. Wilmer Francis Chloride [Moles/Vol] 99 mmol/L Normal 98-107 [facility] Comment on above: Performed By: #### P RTELEC #### [facility] [address] [place] [address] Dr. Wilmer Francis CO2 [Moles/Vol] 30.4 mmol/L Normal 21.0-32.0 [facility] Comment on above: Performed By: #### P RTELEC #### [facility] [address] [place] [address] Dr. Wilmer Francis Creatinine [Mass/Vol] 0.91 mg/dL Normal 0.70-1.30 [facility] Comment on above: Performed By: #### P RTELEC #### [facility] [address] [place] [address] Dr. Wilmer Francis EGFR-AF KYRGYZ >60 Normal >=60 [facility] Comment on above: Performed By: #### P RTELEC #### [facility] [address] [place] [address] Dr. Wilmer Francis EGFR-NON AF KYRGYZ >60 Normal >=60 [facility] Comment on above: Performed By: #### P RTELEC #### [facility] [address] [place] [address] Dr. Wilmer Francis Glucose [Mass/Vol] 266 mg/dL Critically high 74-106 [facility] Comment on above: Performed By: #### P RTELEC #### [facility] [address] [place] [address] Dr. Wilmer Francis Potassium [Moles/Vol] 3.9 mmol/L Normal 3.5-5.1 [facility] Comment on above: Performed By: #### P RTELEC #### [facility] [address] [place] [address] Dr. Wilmer Francis Sodium [Moles/Vol] 135 mmol/L Critically low 136-145 [facility] Comment on above: Performed By: #### P RTELEC #### [facility] [address] [place] [address] Dr. Wilmer Francis Urea nitrogen [Mass/Vol] 21.0 mg/dL Critically high 7.0-18.0 [facility] Comment on above: Performed By: #### P RTELEC #### [facility] [address] [place] [address] Dr. Wilmer Francis Urea nitrogen/Creatinine [Mass ratio] 23.1 mg/mg Normal [facility] Comment on above: Performed By: #### P RTELEC #### [facility] [address] [place] [address] Dr. Wilmer Francis Anion gap [Moles/Vol] 10.0 mmol/L Normal [facility] Comment on above: Performed By: #### S EDR #### [facility] [address] [address] [address] Wilmer Francis Calcium [Mass/Vol] 9.4 mg/dL Normal 8.5-10.1 [facility] Comment on above: Performed By: #### S EDR #### [facility] [address] [address] [address] Wilmer Francis Chloride [Moles/Vol] 97 mmol/L Critically low 98-107 [facility] Comment on above: Performed By: #### S EDR #### [facility] [address] [address] [address] Wilmer Francis CO2 [Moles/Vol] 28.9 mmol/L Normal 21.0-32.0 [facility] Comment on above: Performed By: #### S EDR #### [facility] [address] [place] [address] Dr. Wilmer Francis Creatinine [Mass/Vol] 1.19 mg/dL Normal 0.70-1.30 [facility] Comment on above: Performed By: #### S EDR #### [facility] [address] [place] [address] Dr. Wilmer Francis EGFR-AF KYRGYZ >60 Normal >=60 [facility] Comment on above: Performed By: #### S EDR #### [facility] [address] [place] [address] Dr. Wilmer Francis EGFR-NON AF KYRGYZ >60 Normal >=60 [facility] Comment on above: Performed By: #### S EDR #### [facility] [address] [place] [address] Dr. Wilmer Francis Glucose [Mass/Vol] 343 mg/dL Critically high 74-106 [facility] Comment on above: Performed By: #### S EDR #### [facility] [address] [place] [address] Dr. Wilmer rFancis Potassium [Moles/Vol] 3.9 mmol/L Normal 3.5-5.1 [facility] Comment on above: Performed By: #### S EDR #### [facility] [address] [address] [address] Wilmer Francis Sodium [Moles/Vol] 132 mmol/L Critically low 136-145 [facility] Comment on above: Performed By: #### S EDR #### [facility] [address] [address] [address] Wilmer Francis Urea nitrogen [Mass/Vol] 24.0 mg/dL Critically high 7.0-18.0 [facility] Comment on above: Performed By: #### S EDR #### [facility] [address] [address] [address] Wilmer Francis Urea nitrogen/Creatinine [Mass ratio] 20.2 mg/mg Normal [facility] Comment on above: Performed By: #### S EDR #### [facility] [address] [address] [address] Wilmer Francis [facility] SED RATE 74 mm/hr Critically high <=20 [facility] Comment on above: Performed By: #### T SH, CRP #### [facility] [address] [address] [address] Wilmer Francis JUICE by IFAon 06-21-2022 Antinuclear Antibodies, IFA Negative Normal [facility] Comment on above: Result Comment: Nega tive <1:80 Borderline 1:80 Positive >1:80 ICAP nomenclature: AC-0 For more information about Hep-2 cell patterns use ANApatterns.org, the official website for the International Consensus on Antinuclear Antibody (JUICE) Patterns (ICAP). Performed By: #### S EDR #### [facility] [address] [address] [address] Wilmer Francis CBC AUTO DIFFon 06-21-2022 BASO # 0.0 103/ul Normal 0.0-0.1 [facility] Comment on above: Performed By: #### R SV, INFLUAB #### [facility] [address] [address] [address] Wilmer Francis Basophils/100 WBC (Bld) 0.1 % Critically low 0.2-2.0 [facility] Comment on above: Performed By: #### R SV, INFLUAB #### [facility] [address] [place] [address] Dr. Wilmer Francis EO # 0.0 103/ul Normal 0.0-0.7 [facility] Comment on above: Performed By: #### R SV, INFLUAB #### [facility] [address] [place] [address] Dr. Wilmer Francis Eosinophils/100 WBC (Bld) 0.1 % Critically low 0.9-7.0 [facility] Comment on above: Performed By: #### R SV, INFLUAB #### [facility] [address] [place] [address] Dr. Wilmer Francis Erythrocyte distribution width (RBC) [Ratio] 12.5 % Normal 11.0-15.0 [facility] Comment on above: Performed By: #### R SV, INFLUAB #### [facility] [address] [place] [address] Dr. Wilmer Francis Hematocrit (Bld) [Volume fraction] 36.6 % Critically low 42.0-54.0 [facility] Comment on above: Performed By: #### R SV, INFLUAB #### [facility] [address] [place] [address] Dr. Wilmer Francis Hemoglobin (Bld) [Mass/Vol] 12.5 g/dL Critically low 14.0-18.0 [facility] Comment on above: Performed By: #### R SV, INFLUAB #### [facility] [address] [place] [address] Dr. Wilmer Francis IG # 0.13 10e3/ul Critically high 0.00-0.03 [facility] Comment on above: Performed By: #### R SV, INFLUAB #### [facility] [address] [place] [address] Dr. Wilmer Francis IG % 0.7 % Critically high 0.0-0.5 [facility] Comment on above: Performed By: #### R SV, INFLUAB #### [facility] [address] [place] [address] Dr. Wilmer Francis LYMPH # 0.6 103/ul Critically low 1.2-3.8 [facility] Comment on above: Performed By: #### R SV, INFLUAB #### [facility] [address] [place] [address] Dr. Wilmer Francis Lymphocytes/100 WBC (Bld) 3.3 % Critically low 20.5-60.0 [facility] Comment on above: Performed By: #### R SV, INFLUAB #### [facility] [address] [place] [address] Dr. Wilmer Francis MANUAL DIFF REQ NO Normal [facility] Comment on above: Performed By: #### R SV, INFLUAB #### [facility] [address] [place] [address] Dr. Wilmer Francis MCH (RBC) [Entitic mass] 30.6 pg Normal 25.9-34.0 [facility] Comment on above: Performed By: #### R SV, INFLUAB #### [facility] [address] [place] [address] Dr. Wilmer Francis MCHC (RBC) [Mass/Vol] 34.2 g/dL Normal 29.9-35.2 [facility] Comment on above: Performed By: #### R SV, INFLUAB #### [facility] [address] [place] [address] Dr. Wilmer Francis MCV (RBC) [Entitic vol] 89.5 fL Normal 80.0-94.0 [facility] Comment on above: Performed By: #### R SV, INFLUAB #### [facility] [address] [place] [address] Dr. Wilmer Francis MONO # 1.1 103/ul Critically high 0.3-0.8 [facility] Comment on above: Performed By: #### R SV, INFLUAB #### [facility] [address] [place] [address] Dr. Wilmer Francis Monocytes/100 WBC (Bld) 5.7 % Normal 1.7-12.0 [facility] Comment on above: Performed By: #### R SV, INFLUAB #### [facility] [address] [address] [address] Wilmer Francis NEUT # 17.3 103/ul Critically high 1.4-6.5 [facility] Comment on above: Performed By: #### R SV, INFLUAB #### [facility] [address] [address] [address] Wilmer Francis Neutrophils/100 WBC (Bld) 90.1 % Critically high 43.0-75.0 [facility] Comment on above: Performed By: #### R SV, INFLUAB #### [facility] [address] [address] [address] Wilmer Francis Platelet mean volume (Bld) [Entitic vol] 9.2 fL Critically low 9.5-13.5 [facility] Comment on above: Performed By: #### R SV, INFLUAB #### [facility] [address] [address] [address] Wilmer Francis PLT 318 103/ul Normal 150-450 [facility] Comment on above: Performed By: #### R SV, INFLUAB #### [facility] [address] [address] [address] Wilmer Francis RBC 4.09 106/ul Critically low 4.70-6.10 [facility] Comment on above: Performed By: #### R SV, INFLUAB #### [facility] [address] [address] [address] Wilmer Francis WBC 19.2 103/ul Critically high 4.0-11.0 [facility] Comment on above: Performed By: #### R SV, INFLUAB #### [facility] [address] [address] [address] Wilmer Francis CRPon 06-21-2022 CRP 7.3 mg/dL Critically high <=1.0 [facility] Comment on above: Performed By: #### T SH, CRP #### [facility] [address] [address] [address] Wilmer Francis OSMOLALITYon 06-21-2022 Osmolality [Osmolality] 254 mosm/kg Critically low 280-301 [facility] Comment on above: Performed By: #### T SH, CRP #### [facility] [address] [address] [address] Wilmer Francis OSMOLALITY URINEon 2 Osmolality, Urine 558 mOsmol/kg Normal [facility] Comment on above: Result Comment: 24 h r : 300 - 900 Random: 50 - 1400 After 12hr fluid restriction: >850 Performed By: #### B ALUMNAE SECRETARY #### [facility] [address] [address] [address] Wilmer Francis PROF CHEM 8 (BAS METB)on Anion gap [Moles/Vol] 10.6 mmol/L Normal [facility] Comment on above: Performed By: #### T SH, CRP #### [facility] [address] [place] [address] Dr. Wilmer Francis Calcium [Mass/Vol] 9.1 mg/dL Normal 8.5-10.1 [facility] Comment on above: Performed By: #### T SH, CRP #### [facility] [address] [address] [address] Wilmer Francis Chloride [Moles/Vol] 94 mmol/L Critically low 98-107 [facility] Comment on above: Performed By: #### T SH, CRP #### [facility] [address] [place] [address] Dr. Wilmer Francis CO2 [Moles/Vol] 28.5 mmol/L Normal 21.0-32.0 [facility] Comment on above: Performed By: #### T SH, CRP #### [facility] [address] [place] [address] Dr. Wilmer Francis Creatinine [Mass/Vol] 1.11 mg/dL Normal 0.70-1.30 [facility] Comment on above: Performed By: #### T SH, CRP #### [facility] [address] [place] [address] Dr. Wilmer Francis EGFR-AF KYRGYZ >60 Normal >=60 [facility] Comment on above: Performed By: #### T SH, CRP #### [facility] [address] [address] [address] Wilmer Francis EGFR-NON AF KYRGYZ >60 Normal >=60 [facility] Comment on above: Performed By: #### T SH, CRP #### [facility] [address] [address] [address] Wilmer Francis Glucose [Mass/Vol] 294 mg/dL Critically high 74-106 [facility] Comment on above: Performed By: #### T SH, CRP #### [facility] [address] [address] [address] Wilmer Francis Potassium [Moles/Vol] 4.1 mmol/L Normal 3.5-5.1 [facility] Comment on above: Performed By: #### T SH, CRP #### [facility] [address] [place] [address] Dr. Wilmer Francis Sodium [Moles/Vol] 129 mmol/L Critically low 136-145 [facility] Comment on above: Performed By: #### T SH, CRP #### [facility] [address] [place] [address] Dr. Wilmer Francis Urea nitrogen [Mass/Vol] 27.0 mg/dL Critically high 7.0-18.0 [facility] Comment on above: Performed By: #### T SH, CRP #### [facility] [address] [place] [address] Dr. Wilmer Francis Urea nitrogen/Creatinine [Mass ratio] 24.3 mg/mg Normal [facility] Comment on above: Performed By: #### T SH, CRP #### [facility] [address] [place] [address] Dr. Wilmer Francis Anion gap [Moles/Vol] 11.7 mmol/L Normal [facility] Comment on above: Performed By: #### B MP #### [facility] [address] [place] [address] Dr. Wilmer Francis Calcium [Mass/Vol] 8.7 mg/dL Normal 8.5-10.1 [facility] Comment on above: Performed By: #### B MP #### [facility] [address] [address] [address] Wilmer Francis Chloride [Moles/Vol] 93 mmol/L Critically low 98-107 [facility] Comment on above: Performed By: #### B MP #### [facility] [address] [address] [address] Wilmer Francis CO2 [Moles/Vol] 25.4 mmol/L Normal 21.0-32.0 [facility] Comment on above: Performed By: #### B MP #### [facility] [address] [address] [address] Wilmer Francis Creatinine [Mass/Vol] 1.37 mg/dL Critically high 0.70-1.30 [facility] Comment on above: Performed By: #### B MP #### [facility] [address] [address] [address] Wilmer Francis EGFR-AF KYRGYZ >60 Normal >=60 [facility] Comment on above: Performed By: #### B MP #### [facility] [address] [address] [address] Wilmer Francis EGFR-NON AF KYRGYZ 52 mL/min/1.73m2 Critically low >=60 [facility] Comment on above: Performed By: #### B MP #### [facility] [address] [address] [address] Wilmer Francis Glucose [Mass/Vol] 398 mg/dL Critically high 74-[address] [facility] Comment on above: Performed By: #### B MP #### [facility] [address] [address] [address] Wilmer Francis Potassium [Moles/Vol] 4.1 mmol/L Normal 3.5-5.1 [facility] Comment on above: Performed By: #### B MP #### [facility] [address] [address] [address] Wilmer Francis Sodium [Moles/Vol] 126 mmol/L Critically low 136-145 [facility] Comment on above: Performed By: #### B MP #### [facility] [address] [address] [address] Wilmer Francis Urea nitrogen [Mass/Vol] 28.0 mg/dL Critically high 7.0-18.0 [facility] Comment on above: Performed By: #### B MP #### [facility] [address] [place] [address] Dr. Wilmer Francis Urea nitrogen/Creatinine [Mass ratio] 20.4 mg/mg Normal [facility] Comment on above: Performed By: #### B MP #### [facility] [address] [place] [address] Dr. Wilmer Francis SED RATE WESTERGRENon 2021 SED RATE 109 mm/hr Critically high <=20 [facility] Comment on above: Performed By: #### S EDR #### [facility] [address] [place] [address] Dr. Wilmer Francis CBC AUTO DIFFon 06-20-2022 BASO # 0.0 103/ul Normal 0.0-0.1 [facility] Comment on above: Performed By: #### T SH, CRP #### [facility] [address] [place] [address] Dr. Wilmer Francis Basophils/100 WBC (Bld) 0.1 % Critically low 0.2-2.0 [facility] Comment on above: Performed By: #### T SH, CRP #### [facility] [address] [place] [address] Dr. Wilmer Francis EO # 0.0 103/ul Normal 0.0-0.7 [facility] Comment on above: Performed By: #### T SH, CRP #### [facility] [address] [place] [address] Dr. Wilmer Francis Eosinophils/100 WBC (Bld) 0.0 % Critically low 0.9-7.0 [facility] Comment on above: Performed By: #### T SH, CRP #### [facility] [address] [place] [address] Dr. Wilmer Francis Erythrocyte distribution width (RBC) [Ratio] 12.2 % Normal 11.0-15.0 [facility] Comment on above: Performed By: #### T SH, CRP #### [facility] [address] [place] [address] Dr. Wilmer Francis Hematocrit (Bld) [Volume fraction] 37.3 % Critically low 42.0-54.0 [facility] Comment on above: Performed By: #### T SH, CRP #### [facility] [address] [place] [address] Dr. Wilmer Francis Hemoglobin (Bld) [Mass/Vol] 12.7 g/dL Critically low 14.0-18.0 [facility] Comment on above: Performed By: #### T SH, CRP #### [facility] [address] [place] [address] Dr. Wilmer Francis IG # 0.11 10e3/ul Critically high 0.00-0.03 [facility] Comment on above: Performed By: #### T SH, CRP #### [facility] [address] [place] [address] Dr. Wilmer Francis IG % 0.5 % Normal 0.0-0.5 [facility] Comment on above: Performed By: #### T SH, CRP #### [facility] [address] [place] [address] Dr. Wilmer Francis LYMPH # 0.9 103/ul Critically low 1.2-3.8 [facility] Comment on above: Performed By: #### T SH, CRP #### [facility] [address] [place] [address] Dr. Wilmer Francis Lymphocytes/100 WBC (Bld) 4.3 % Critically low 20.5-60.0 [facility] Comment on above: Performed By: #### T SH, CRP #### [facility] [address] [place] [address] Dr. Wilmer Francis MANUAL DIFF REQ NO Normal [facility] Comment on above: Performed By: #### T SH, CRP #### [facility] [address] [place] [address] Dr. Wilmer Francis MCH (RBC) [Entitic mass] 30.3 pg Normal 25.9-34.0 [facility] Comment on above: Performed By: #### T SH, CRP #### [facility] [address] [address] [address] Wilmer Francis MCHC (RBC) [Mass/Vol] 34.0 g/dL Normal 29.9-35.2 [facility] Comment on above: Performed By: #### T SH, CRP #### [facility] [address] [address] [address] Wilmer Francis MCV (RBC) [Entitic vol] 89.0 fL Normal 80.0-94.0 [facility] Comment on above: Performed By: #### T SH, CRP #### [facility] [address] [address] [address] Wilmer Francis MONO # 1.4 103/ul Critically high 0.3-0.8 [facility] Comment on above: Performed By: #### T SH, CRP #### [facility] [address] [place] [address] Dr. Wilmer Francis Monocytes/100 WBC (Bld) 6.2 % Normal 1.7-12.0 [facility] Comment on above: Performed By: #### T SH, CRP #### [facility] [address] [address] [address] Wilmer Francis NEUT # 19.6 103/ul Critically high 1.4-6.5 [facility] Comment on above: Performed By: #### T SH, CRP #### [facility] [address] [address] [address] Wilmer Francis Neutrophils/100 WBC (Bld) 88.9 % Critically high 43.0-75.0 [facility] Comment on above: Performed By: #### T SH, CRP #### [facility] [address] [address] [address] Wilmer Francis Platelet mean volume (Bld) [Entitic vol] 9.3 fL Critically low 9.5-13.5 [facility] Comment on above: Performed By: #### T SH, CRP #### [facility] [address] [address] [address] Wilmer Francis PLT 311 103/ul Normal 150-450 [facility] Comment on above: Performed By: #### T SH, CRP #### [facility] [address] [address] [address] Wilmer Francis RBC 4.19 106/ul Critically low 4.70-6.10 [facility] Comment on above: Performed By: #### T SH, CRP #### [facility] [address] [place] [address] Dr. Wilmer Francis WBC 22.0 103/ul Critically high 4.0-11.0 [facility] Comment on above: Performed By: #### T SH, CRP #### [facility] [address] [place] [address] Dr. Wilmer Francis CRPon 06-20-2022 CRP 16.1 mg/dL Critically high <=1.0 [facility] Comment on above: Performed By: #### S EDR #### [facility] [address] [place] [address] Dr. Wilmer Francis PROF CHEM 8 (BAS METB)on Anion gap [Moles/Vol] 14.0 mmol/L Normal [facility] Comment on above: Performed By: #### B ALUMNAE SECRETARY #### [facility] [address] [place] [address] Dr. Wilmer Francis Calcium [Mass/Vol] 9.0 mg/dL Normal 8.5-10.1 [facility] Comment on above: Performed By: #### B ALUMNAE SECRETARY #### [facility] [address] [place] [address] Dr. Wilmer Francis Chloride [Moles/Vol] 90 mmol/L Critically low 98-107 [facility] Comment on above: Performed By: #### B ALUMNAE SECRETARY #### [facility] [address] [place] [address] Dr. Wilmer Francis CO2 [Moles/Vol] 26.3 mmol/L Normal 21.0-32.0 [facility] Comment on above: Performed By: #### B ALUMNAE SECRETARY #### [facility] [address] [place] [address] Dr. Wilmer Francis Creatinine [Mass/Vol] 1.24 mg/dL Normal 0.70-1.30 [facility] Comment on above: Performed By: #### B ALUMNAE SECRETARY #### [facility] [address] [address] [address] Wilmer Francis EGFR-AF KYRGYZ >60 Normal >=60 [facility] Comment on above: Performed By: #### B ALUMNAE SECRETARY #### [facility] [address] [address] [address] Wilmer Francis EGFR-NON AF KYRGYZ 58 mL/min/1.73m2 Critically low >=60 [facility] Comment on above: Performed By: #### B ALUMNAE SECRETARY #### [facility] [address] [address] [address] Wilmer Francis Glucose [Mass/Vol] 274 mg/dL Critically high 74-[address] [facility] Comment on above: Performed By: #### B ALUMNAE SECRETARY #### [facility] [address] [place] [address] Dr. Wilmer Francis Potassium [Moles/Vol] 4.2 mmol/L Normal 3.5-5.1 [facility] Comment on above: Performed By: #### B ALUMNAE SECRETARY #### [facility] [address] [place] [address] Dr. Wilmer Francis Sodium [Moles/Vol] 126 mmol/L Critically low 136-145 [facility] Comment on above: Performed By: #### B ALUMNAE SECRETARY #### [facility] [address] [address] [address] Wilmer Francis Urea nitrogen [Mass/Vol] 20.0 mg/dL Critically high 7.0-18.0 [facility] Comment on above: Performed By: #### B ALUMNAE SECRETARY #### [facility] [address] [address] [address] Wilmer Francis Urea nitrogen/Creatinine [Mass ratio] 16.1 mg/mg [facility] Comment on above: Performed By: #### B ALUMNAE SECRETARY #### [facility] [address] [place] [address] Dr. Wilmer Francis Anion gap [Moles/Vol] 9.4 mmol/L [facility] Comment on above: Performed By: #### S EDR #### [facility] [address] [address] [address] Wilmer Francis Calcium [Mass/Vol] 8.9 mg/dL Normal 8.5-10.1 [facility] Comment on above: Performed By: #### S EDR #### [facility] [address] [address] [address] Wilmer Francis Chloride [Moles/Vol] 90 mmol/L Critically low 98-107 [facility] Comment on above: Performed By: #### S EDR #### [facility] [address] [address] [address] Wilmer Francis CO2 [Moles/Vol] 28.8 mmol/L Normal 21.0-32.0 [facility] Comment on above: Performed By: #### S EDR #### [facility] [address] [address] [address] Wilmer Francis Creatinine [Mass/Vol] 0.93 mg/dL Normal 0.70-1.30 [facility] Comment on above: Performed By: #### S EDR #### [facility] [address] [address] [address] Wilmer Francis EGFR-AF KYRGYZ >60 Normal >=60 [facility] Comment on above: Performed By: #### S EDR #### [facility] [address] [address] [address] Wilmer Francis EGFR-NON AF KYRGYZ >60 Normal >=60 [facility] Comment on above: Performed By: #### S EDR #### [facility] [address] [address] [address] Wilmer Francis Glucose [Mass/Vol] 243 mg/dL Critically high 74-106 [facility] Comment on above: Performed By: #### S EDR #### [facility] [address] [address] [address] Wilmer Francis Potassium [Moles/Vol] 4.2 mmol/L Normal 3.5-5.1 [facility] Comment on above: Performed By: #### S EDR #### [facility] [address] [address] [address] Wilmer Francis Sodium [Moles/Vol] 124 mmol/L Critically low 136-145 [facility] Comment on above: Performed By: #### S EDR #### [facility] [address] [address] [address] Wilmer Francis Urea nitrogen [Mass/Vol] 21.0 mg/dL Critically high 7.0-18.0 [facility] Comment on above: Performed By: #### S EDR #### [facility] [address] [address] [address] Wilmer Francis Urea nitrogen/Creatinine [Mass ratio] 22.6 mg/mg Normal [facility] Comment on above: Performed By: #### S EDR #### [facility] [address] [address] [address] Wilmer Francis Anion gap [Moles/Vol] 10.8 mmol/L Normal [facility] Comment on above: Performed By: #### T SH, CRP #### [facility] [address] [address] [address] Wilmer Francis Calcium [Mass/Vol] 8.6 mg/dL Normal 8.5-10.1 [facility] Comment on above: Performed By: #### T SH, CRP #### [facility] [address] [address] [address] Wilmer Francis Chloride [Moles/Vol] 88 mmol/L Critically low 98-107 [facility] Comment on above: Performed By: #### T SH, CRP #### [facility] [address] [address] [address] Wilmer Francis CO2 [Moles/Vol] 27.3 mmol/L Normal 21.0-32.0 [facility] Comment on above: Performed By: #### T SH, CRP #### [facility] [address] [address] [address] Wilmer Francis Creatinine [Mass/Vol] 1.19 mg/dL Normal 0.70-1.30 [facility] Comment on above: Performed By: #### T SH, CRP #### [facility] [address] [address] [address] Wilmer Francis EGFR-AF KYRGYZ >60 Normal >=60 [facility] Comment on above: Performed By: #### T SH, CRP #### [facility] [address] [address] [address] Wilmer Francis EGFR-NON AF KYRGYZ >60 Normal >=60 [facility] Comment on above: Performed By: #### T SH, CRP #### [facility] [address] [address] [address] Wilmer Francis Glucose [Mass/Vol] 378 mg/dL Critically high 74-106 [facility] Comment on above: Performed By: #### T SH, CRP #### [facility] [address] [place] [address] Dr. Wilmer Francis Potassium [Moles/Vol] 4.1 mmol/L Normal 3.5-5.1 [facility] Comment on above: Performed By: #### T SH, CRP #### [facility] [address] [address] [address] Wilmer Francis Sodium [Moles/Vol] 122 mmol/L Critically low 136-145 [facility] Comment on above: Performed By: #### T SH, CRP #### [facility] [address] [place] [address] Dr. Wilmer Francis Urea nitrogen [Mass/Vol] 21.0 mg/dL Critically high 7.0-18.0 [facility] Comment on above: Performed By: #### T SH, CRP #### [facility] [address] [address] [address] Wilmer Francis Urea nitrogen/Creatinine [Mass ratio] 17.6 mg/mg Normal [facility] Comment on above: Performed By: #### T SH, CRP #### [facility] [address] [place] [address] Dr. Wilmer Francis PROTEIN ELECTROPHERESISon Albumin [Mass/Vol] 3.4 g/dL Normal 2.9-4.4 [facility] Comment on above: Performed By: #### P RTELEC #### [facility] [address] [address] [address] Wilmer Francis Albumin/Globulin [Mass ratio] 1.1 {ratio} Normal 0.7-1.7 [facility] Comment on above: Performed By: #### P RTELEC #### [facility] [address] [address] [address] Wilmer Francis Mrlut-9-Qaanxlud 0.4 g/dL Normal 0.0-0.4 [facility] Comment on above: Performed By: #### P RTELEC #### [facility] [address] [address] [address] Wilmer Francis Cpdyi-0-Syniepzs 1.0 g/dL Normal 0.4-1.0 [facility] Comment on above: Performed By: #### P RTELEC #### [facility] [address] [address] [address] Wilmer Francis Beta Globulin 1.0 g/dL Normal 0.7-1.3 [facility] Comment on above: Performed By: #### P RTELEC #### [facility] [address] [address] [address] Wilmer Francis Gamma Globulin 0.7 g/dL Normal 0.4-1.8 [facility] Comment on above: Performed By: #### P RTELEC #### [facility] [address] [address] [address] Wilmer Francsi Globulin (S) [Mass/Vol] 3.1 g/dL Normal 2.2-3.9 [facility] Comment on above: Performed By: #### P RTELEC #### [facility] [address] [address] [address] Wilmer Francis M-Antoine Comment: Normal Not Observed [facility] Comment on above: Result Comment: SPE shows asymmetrical beta. Performed By: #### P RTELEC #### [facility] [address] [address] [address] Wilmer Francis PDF . Normal [facility] Comment on above: Performed By: #### P RTELEC #### [facility] [address] [address] [address] Wilmer Francis Please note: Comment Normal [facility] Comment on above: Result Comment: Prot ein electrophoresis scan will follow via computer, mail, or gas plumber delivery. Performed By: #### P RTELEC #### [facility] [address] [address] [address] Wilmer Francis Protein [Mass/Vol] 6.5 g/dL Normal 6.0-8.5 [facility] Comment on above: Performed By: #### P RTELEC #### [facility] [address] [address] [address] Wilmer Francis RHEUMATOID FACTORon 06-20-20 22 RA Latex Turbid. 43.8 IU/mL Critically high <14.0 [facility] Comment on above: Performed By: #### T SH, CRP #### [facility] [address] [place] [address] Dr. Wilmer Francis SED RATE WESTERGRENon 2021 SED RATE 122 mm/hr Critically high <=20 [facility] Comment on above: Performed By: #### B ALUMNAE SECRETARY #### [facility] [address] [place] [address] Dr. Wilmer Francis XR CHEST 2 Von [...] KEVIN STANLEY Date: 2022-06-20 12:34 Normal [facility] BNPon 06-19-2022 Natriuretic peptide B (Bld) [Mass/Vol] 246.0 pg/mL Normal <=900.0 [facility] Comment on above: Performed By: #### B ALUMNAE SECRETARY #### [facility] [address] [place] [address] Dr. Wilmer Francis CARDIAC BIPIN 3-6on 2 CK [Catalytic activity/Vol] 76 U/L Normal 39-308 [facility] Comment on above: Performed By: #### T SH, CRP #### [facility] [address] [place] [address] Dr. Wilmer Francis CK.MB [Mass/Vol] 2.18 ng/mL Normal <=3.60 [facility] Comment on above: Performed By: #### T SH, CRP #### [facility] [address] [place] [address] Dr. Wilmer Francis HSTROP 5.1 pg/mL Normal 4.0-76.1 [facility] Comment on above: Result Comment: CUT- OFF POINTS HAVE BEEN ESTABLISHED BASED ON THE FOURTH UNIVERSAL DEFINITIONS OF MYOCARDIAL INFARCTION. THE UPPER REFERENCE LIMIT (URL) OF TROPONIN, DEFINED THE 99TH PERCENTILE OF cTnI DISTRIBUTION IN A REFERENCE POPULATION, HAS BEEN CONFIRMED THE DECISION THRESHOLD FOR SC DIAGNOSIS. Performed By: #### T SH, CRP #### [facility] [address] [place] [address] Dr. Wilmer Francis CK [Catalytic activity/Vol] 90 U/L Normal 39-308 [facility] Comment on above: Performed By: #### P RTELEC #### [facility] [address] [place] [address] Dr. Wilmer Francis CK.MB [Mass/Vol] 1.91 ng/mL Normal <=3.60 [facility] Comment on above: Performed By: #### P RTELEC #### [facility] [address] [place] [address] Dr. Wilmer Francis HSTROP 4.8 pg/mL Normal 4.0-76.1 [facility] Comment on above: Result Comment: CUT- OFF POINTS HAVE BEEN ESTABLISHED BASED ON THE FOURTH UNIVERSAL DEFINITIONS OF MYOCARDIAL INFARCTION. THE UPPER REFERENCE LIMIT (URL) OF TROPONIN, DEFINED THE 99TH PERCENTILE OF cTnI DISTRIBUTION IN A REFERENCE POPULATION, HAS BEEN CONFIRMED THE DECISION THRESHOLD FOR SC DIAGNOSIS. Performed By: #### P RTELEC #### [facility] [address] [place] [address] Dr. Wilmer Francis CARDIAC BIPIN ADMITon 022 CK [Catalytic activity/Vol] 86 U/L Normal 39-308 [facility] Comment on above: Performed By: #### S EDR #### [facility] [address] [place] [address] Dr. Wilmer Francis CK.MB [Mass/Vol] 1.97 ng/mL Normal <=3.60 [facility] Comment on above: Performed By: #### S EDR #### [facility] [address] [place] [address] Dr. Wilmer Francis HSTROP 6.2 pg/mL Normal 4.0-76.1 [facility] Comment on above: Result Comment: CUT- OFF POINTS HAVE BEEN ESTABLISHED BASED ON THE FOURTH UNIVERSAL DEFINITIONS OF MYOCARDIAL INFARCTION. THE UPPER REFERENCE LIMIT (URL) OF TROPONIN, DEFINED THE 99TH PERCENTILE OF cTnI DISTRIBUTION IN A REFERENCE POPULATION, HAS BEEN CONFIRMED THE DECISION THRESHOLD FOR SC DIAGNOSIS. Performed By: #### S EDR #### [facility] [address] [place] [address] Dr. Wilmer Francis CHANTE 59 ng/mL Normal 16-96 [facility] Comment on above: Performed By: #### S EDR #### [facility] [address] [place] [address] Dr. Wilmer Francis CBC AUTO DIFFon 06-19-2022 BASO # 0.0 103/ul Normal 0.0-0.1 [facility] Comment on above: Performed By: #### B ALUMNAE SECRETARY #### [facility] [address] [place] [address] Dr. Wilmer Francis Basophils/100 WBC (Bld) 0.1 % Critically low 0.2-2.0 [facility] Comment on above: Performed By: #### B ALUMNAE SECRETARY #### [facility] [address] [place] [address] Dr. Wilmer Francis EO # 0.0 103/ul Normal 0.0-0.7 [facility] Comment on above: Performed By: #### B ALUMNAE SECRETARY #### [facility] [address] [place] [address] Dr. Wilmer Francis Eosinophils/100 WBC (Bld) 0.0 % Critically low 0.9-7.0 [facility] Comment on above: Performed By: #### B ALUMNAE SECRETARY #### [facility] [address] [place] [address] Dr. Wilmer Francis Erythrocyte distribution width (RBC) [Ratio] 12.2 % Normal 11.0-15.0 [facility] Comment on above: Performed By: #### B ALUMNAE SECRETARY #### [facility] [address] [place] [address] Dr. Wilmer Francis Hematocrit (Bld) [Volume fraction] 38.3 % Critically low 42.0-54.0 [facility] Comment on above: Performed By: #### B ALUMNAE SECRETARY #### [facility] [address] [place] [address] Dr. Wilmer Francis Hemoglobin (Bld) [Mass/Vol] 13.6 g/dL Critically low 14.0-18.0 [facility] Comment on above: Performed By: #### B ALUMNAE SECRETARY #### [facility] [address] [place] [address] Dr. Wilmer Francis IG # 0.10 10e3/ul Critically high 0.00-0.03 [facility] Comment on above: Performed By: #### B ALUMNAE SECRETARY #### [facility] [address] [place] [address] Dr. Wilmer Francis IG % 0.7 % Critically high 0.0-0.5 [facility] Comment on above: Performed By: #### B ALUMNAE SECRETARY #### [facility] [address] [place] [address] Dr. Wilmer Francis LYMPH # 0.8 103/ul Critically low 1.2-3.8 [facility] Comment on above: Performed By: #### B ALUMNAE SECRETARY #### [facility] [address] [place] [address] Dr. Wilmer Francis Lymphocytes/100 WBC (Bld) 5.0 % Critically low 20.5-60.0 [facility] Comment on above: Performed By: #### B ALUMNAE SECRETARY #### [facility] [address] [place] [address] Dr. Wilmer Francis MANUAL DIFF REQ NO Normal [facility] Comment on above: Performed By: #### B ALUMNAE SECRETARY #### [facility] [address] [place] [address] Dr. Wilmer Francis MCH (RBC) [Entitic mass] 30.8 pg Normal 25.9-34.0 [facility] Comment on above: Performed By: #### B ALUMNAE SECRETARY #### [facility] [address] [place] [address] Dr. Wilmer Francis MCHC (RBC) [Mass/Vol] 35.5 g/dL Critically high 29.9-35.2 [facility] Comment on above: Performed By: #### B ALUMNAE SECRETARY #### [facility] [address] [place] [address] Dr. Wilmer Francis MCV (RBC) [Entitic vol] 86.8 fL Normal 80.0-94.0 [facility] Comment on above: Performed By: #### B ALUMNAE SECRETARY #### [facility] [address] [place] [address] Dr. Wilmer Francis MONO # 0.7 103/ul Normal 0.3-0.8 [facility] Comment on above: Performed By: #### B ALUMNAE SECRETARY #### [facility] [address] [place] [address] Dr. Wilmer Francis Monocytes/100 WBC (Bld) 4.2 % Normal 1.7-12.0 [facility] Comment on above: Performed By: #### B ALUMNAE SECRETARY #### [facility] [address] [place] [address] Dr. Wilmer Francis NEUT # 13.8 103/ul Critically high 1.4-6.5 [facility] Comment on above: Performed By: #### B ALUMNAE SECRETARY #### [facility] [address] [place] [address] Dr. Wilmer Francis Neutrophils/100 WBC (Bld) 90.0 % Critically high 43.0-75.0 [facility] Comment on above: Performed By: #### B ALUMNAE SECRETARY #### [facility] [address] [place] [address] Dr. Wilmer Francis Platelet mean volume (Bld) [Entitic vol] 9.0 fL Critically low 9.5-13.5 [facility] Comment on above: Performed By: #### B ALUMNAE SECRETARY #### [facility] [address] [place] [address] Dr. Wilmer Francis PLT 298 103/ul Normal 150-450 [facility] Comment on above: Performed By: #### B ALUMNAE SECRETARY #### [facility] [address] [place] [address] Dr. Wilmer Francis RBC 4.41 106/ul Critically low 4.70-6.10 [facility] Comment on above: Performed By: #### B ALUMNAE SECRETARY #### [facility] [address] [place] [address] Dr. Wilmer Francis WBC 15.3 103/ul Critically high 4.0-11.0 [facility] Comment on above: Performed By: #### B ALUMNAE SECRETARY #### [facility] [address] [place] [address] Dr. Wilmer Francis CBC W MANUAL DIFFon 06-19-20 22 ATYPICAL LYMPH # Normal [facility] Comment on above: Performed By: #### S EDR #### [facility] [address] [place] [address] Dr. Wilmer Francis ATYPICAL LYMPH % Normal [facility] Comment on above: Performed By: #### S EDR #### [facility] [address] [place] [address] Dr. Wilmer Francis BAND # 0.0 103/ul Normal 0.0-0.3 [facility] Comment on above: Performed By: #### S EDR #### [facility] [address] [place] [address] Dr. Wilmer Francis BAND % 0 % Normal 0-5 [facility] Comment on above: Performed By: #### S EDR #### [facility] [address] [place] [address] Dr. Wilmer Francis BASOM # 0.00 103/ul Normal 0.00-0.10 [facility] Comment on above: Performed By: #### S EDR #### [facility] [address] [address] [address] Wilmer Francis BASOM % 0.0 % Critically low 0.2-2.0 [facility] Comment on above: Performed By: #### S EDR #### [facility] [address] [place] [address] Dr. Wilmer Francis BLAST # Normal [facility] Comment on above: Performed By: #### S EDR #### [facility] [address] [place] [address] Dr. Wilmer Francis BLAST % Normal [facility] Comment on above: Performed By: #### S EDR #### [facility] [address] [place] [address] Dr. Wilmer Francis CORRECTED WBC Normal 4.0-11.0 [facility] Comment on above: Performed By: #### S EDR #### [facility] [address] [place] [address] Dr. Wilmer Francis EOS # 0.15 103/ul Normal 0.00-0.70 [facility] Comment on above: Performed By: #### S EDR #### [facility] [address] [place] [address] Dr. Wilmer Francis EOS% 1.0 % Normal 0.9-7.0 [facility] Comment on above: Performed By: #### S EDR #### [facility] [address] [place] [address] Dr. Wilmer Francis HCT 38.7 % Critically low 42.0-54.0 [facility] Comment on above: Performed By: #### S EDR #### [facility] [address] [place] [address] Dr. Wilmer Francis HGB 13.8 g/dl Critically low 14.0-18.0 [facility] Comment on above: Performed By: #### S EDR #### [facility] [address] [place] [address] Dr. Wilmer Francis LYMPHM # 1.62 103/ul Normal 1.20-3.80 [facility] Comment on above: Performed By: #### S EDR #### [facility] [address] [address] [address] Wilmer Francis LYMPHM% 11.0 % Critically low 20.5-60.0 [facility] Comment on above: Performed By: #### S EDR #### [facility] [address] [address] [address] Wilmer Francis MCH 30.5 pg Normal 25.9-34.0 [facility] Comment on above: Performed By: #### S EDR #### [facility] [address] [place] [address] Dr. Wilmer Francis MCHC 35.7 g/dl Critically high 29.9-35.2 [facility] Comment on above: Performed By: #### S EDR #### [facility] [address] [place] [address] Dr. Wilmer Francis MCV 85.4 fL Normal 80.0-94.0 [facility] Comment on above: Performed By: #### S EDR #### [facility] [address] [place] [address] Dr. Wilmer Francis METAMYELOCYTE # Normal [facility] Comment on above: Performed By: #### S EDR #### [facility] [address] [place] [address] Dr. Wilmer Francis METAMYELOCYTE % Normal [facility] Comment on above: Performed By: #### S EDR #### [facility] [address] [address] [address] Wilmer Francis MONOM# 1.18 103/ul Critically high 0.30-0.80 [facility] Comment on above: Performed By: #### S EDR #### [facility] [address] [address] [address] Wilmer Francis MONOM% 8.0 % Normal 1.7-12.0 [facility] Comment on above: Performed By: #### S EDR #### [facility] [address] [place] [address] Dr. Wilmer Francis MPV 8.8 fL Critically low 9.5-13.5 [facility] Comment on above: Performed By: #### S EDR #### [facility] [address] [address] [address] Wilmer Francis MYELOCYTE # Normal [facility] Comment on above: Performed By: #### S EDR #### [facility] [address] [address] [address] Wilmer Francis MYELOCYTE % Normal [facility] Comment on above: Performed By: #### S EDR #### [facility] [address] [address] [address] Wilmer Francis NRBC Normal [facility] Comment on above: Performed By: #### S EDR #### [facility] [address] [address] [address] Wilmer Francis PLT 302 103/ul Normal 150-450 [facility] Comment on above: Performed By: #### S EDR #### [facility] [address] [address] [address] Wilmer Francis RBC 4.53 106/ul Critically low 4.70-6.10 [facility] Comment on above: Performed By: #### S EDR #### [facility] [address] [place] [address] Dr. Wilmer Francis RDW 12.1 % Normal 11.0-15.0 [facility] Comment on above: Performed By: #### S EDR #### [facility] [address] [address] [address] Wilmer Francis SEG # 11.76 103/ul Critically high 1.40-6.50 [facility] Comment on above: Performed By: #### S EDR #### [facility] [address] [address] [address] Wilmer Francis SEG % 80.0 % Critically high 43.0-75.0 [facility] Comment on above: Performed By: #### S EDR #### [facility] [address] [place] [address] Dr. Wilmer Francis WBC 14.7 103/ul Critically high 4.0-11.0 [facility] Comment on above: Performed By: #### S EDR #### [facility] [address] [address] [address] Wilmer Francis CREATININE URINEon URINE CREAT 179.57 mg/dL Normal 20.00-300.00 [facility] Comment on above: Performed By: #### S EDR #### [facility] [address] [place] [address] Dr. Wilmer Francis CRPon 06-19-2022 CRP 7.0 mg/dL Critically high <=1.0 [facility] Comment on above: Performed By: #### T SH, CRP #### [facility] [address] [place] [address] Dr. Wilmer Francis CRP 3.9 mg/dL Critically high <=1.0 [facility] Comment on above: Performed By: #### S EDR #### [facility] [address] [place] [address] Dr. Wilmer Francis [facility]06 SARS-CoV-2 (COVID-19) RNA ALAINA+probe Ql (Unsp spec) Not detected Normal NOT DETECTED [facility] Comment on above: Result Comment: When diagnostic [...] for this test is supported by the [place] of Health and Human Service's declaration that [...] Performed By: #### T SH, CRP #### [facility] [address] [place] [address] [address] Wilmer Francis INFLUENZA A AND B AGon 06-19 INFLUENZA A AG Negative Normal NEGATIVE SEE COMMENT [facility] Comment on above: Performed By: #### R SV, INFLUAB #### [facility] [address] [place] [address] Dr. Wilmer Francis INFLUENZA B AG Negative Normal NEGATIVE SEE COMMENT [facility] Comment on above: Performed By: #### R SV, INFLUAB #### [facility] [address] [place] [address] Dr. Wilmer Francis INTERNAL CONTROLS Within Normal Limits Normal Within Normal Limits [facility] Comment on above: Performed By: #### R SV, INFLUAB #### [facility] [address] [place] [address] Dr. Wilmer Francis LACTATE/LACTIC ACIDon 2021 Lactate [Moles/Vol] 1.0 mmol/L Normal 0.4-1.9 [facility] Comment on above: Performed By: #### S EDR #### [facility] [address] [place] [address] Dr. Wilmer Francis Lactate [Moles/Vol] 0.9 mmol/L Normal 0.4-1.9 [facility] Comment on above: Performed By: #### B ALUMNAE SECRETARY #### [facility] [address] [place] [address] Dr. Wilmer Francis MICROALBUMIN, RAND URon 06-06 mALB 1.6 mg/L Normal <=30.0 [facility] Comment on above: Performed By: #### S EDR #### [facility] [address] [place] [address] Dr. Wilmer Francis PROF CHEM 8 (BAS METB)on Anion gap [Moles/Vol] 13.7 mmol/L Normal [facility] Comment on above: Performed By: #### B MP #### [facility] [address] [place] [address] Dr. Wilmer Francis Calcium [Mass/Vol] 8.9 mg/dL Normal 8.5-10.1 [facility] Comment on above: Performed By: #### B MP #### [facility] [address] [place] [address] [address] Wilmer Francis Chloride [Moles/Vol] 87 mmol/L Critically low 98-107 [facility] Comment on above: Performed By: #### B MP #### [facility] [address] [place] [address] [address] Wilmer Francis CO2 [Moles/Vol] 28.6 mmol/L Normal 21.0-32.0 [facility] Comment on above: Performed By: #### B MP #### [facility] [address] [address] [address] Wilmer Francis Creatinine [Mass/Vol] 1.15 mg/dL Normal 0.70-1.30 [facility] Comment on above: Performed By: #### B MP #### [facility] [address] [place] [address] [address] Wilmer Francis EGFR-AF KYRGYZ >60 Normal >=60 [facility] Comment on above: Performed By: #### B MP #### [facility] [address] [place] [address] [address] Wilmer Francis EGFR-NON AF KYRGYZ >60 Normal >=60 [facility] Comment on above: Performed By: #### B MP #### [facility] [address] [address] [address] Wilmer Francis Glucose [Mass/Vol] 295 mg/dL Critically high 74-[address] [facility] Comment on above: Performed By: #### B MP #### [facility] [address] [place] [address] [address] Wilmer Francis Potassium [Moles/Vol] 4.2 mmol/L Normal 3.5-5.1 [facility] Comment on above: Performed By: #### B MP #### [facility] [address] [place] [address] Dr. Wilmer Francis Sodium [Moles/Vol] 124 mmol/L Critically low 136-145 [facility] Comment on above: Performed By: #### B MP #### [facility] [address] [place] [address] [address] Wilmer Francis Urea nitrogen [Mass/Vol] 14.0 mg/dL Normal 7.0-18.0 [facility] Comment on above: Performed By: #### B MP #### [facility] [address] [place] [address] [address] Wilmer Francis Urea nitrogen/Creatinine [Mass ratio] 12.2 mg/mg Normal [facility] Comment on above: Performed By: #### B MP #### [facility] [address] [place] [address] [address] Wilmer Francis Anion gap [Moles/Vol] 11.1 mmol/L Normal [facility] Comment on above: Performed By: #### T SH, CRP #### [facility] [address] [place] [address] Dr. Wilmer Francis Calcium [Mass/Vol] 9.0 mg/dL Normal 8.5-10.1 [facility] Comment on above: Performed By: #### T SH, CRP #### [facility] [address] [place] [address] Dr. Wilmer Francis Chloride [Moles/Vol] 86 mmol/L Critically low 98-107 [facility] Comment on above: Performed By: #### T SH, CRP #### [facility] [address] [place] [address] Dr. Wilmer Francis CO2 [Moles/Vol] 28.2 mmol/L Normal 21.0-32.0 [facility] Comment on above: Performed By: #### T SH, CRP #### [facility] [address] [place] [address] Dr. Wilmer Francis Creatinine [Mass/Vol] 0.77 mg/dL Normal 0.70-1.30 [facility] Comment on above: Performed By: #### T SH, CRP #### [facility] [address] [place] [address] Dr. Wilmer Francis EGFR-AF KYRGYZ >60 Normal >=60 [facility] Comment on above: Performed By: #### T SH, CRP #### [facility] [address] [place] [address] [address] Wilmer Francis EGFR-NON AF KYRGYZ >60 Normal >=60 [facility] Comment on above: Performed By: #### T SH, CRP #### [facility] [address] [place] [address] [address] Wilmer Francis Glucose [Mass/Vol] 183 mg/dL Critically high 74-[address] [facility] Comment on above: Performed By: #### T SH, CRP #### [facility] [address] [place] [address] [address] Wilmer Francis Potassium [Moles/Vol] 4.3 mmol/L Normal 3.5-5.1 [facility] Comment on above: Performed By: #### T SH, CRP #### [facility] [address] [place] [address] Dr. Wilmer Francis Sodium [Moles/Vol] 122 mmol/L Critically low 136-145 [facility] Comment on above: Performed By: #### T SH, CRP #### [facility] [address] [place] [address] Dr. Wilmer Francis Urea nitrogen [Mass/Vol] 10.0 mg/dL Normal 7.0-18.0 [facility] Comment on above: Performed By: #### T OLIVIA, CRP #### [facility] [address] [place] [address] Dr. Wilmer Francis Urea nitrogen/Creatinine [Mass ratio] 13.0 mg/mg Normal [facility] Comment on above: Performed By: #### T OLIVIA, CRP #### [facility] [address] [place] [address] Dr. Wilmer Francis Anion gap [Moles/Vol] 9.0 mmol/L Normal [facility] Comment on above: Performed By: #### S EDR #### [facility] [address] [place] [address] Dr. Wilmer Francis Calcium [Mass/Vol] 9.2 mg/dL Normal 8.5-10.1 [facility] Comment on above: Performed By: #### S EDR #### [facility] [address] [place] [address] Dr. Wilmer Francis Chloride [Moles/Vol] 86 mmol/L Critically low 98-107 [facility] Comment on above: Performed By: #### S EDR #### [facility] [address] [place] [address] [address] Wilmer Francis CO2 [Moles/Vol] 29.0 mmol/L Normal 21.0-32.0 [facility] Comment on above: Performed By: #### S EDR #### [facility] [address] [place] [address] [address] Wilmer Francis Creatinine [Mass/Vol] 0.72 mg/dL Normal 0.70-1.30 [facility] Comment on above: Performed By: #### S EDR #### [facility] [address] [place] [address] Dr. Wilmer Francis EGFR-AF KYRGYZ >60 Normal >=60 [facility] Comment on above: Performed By: #### S EDR #### [facility] [address] [place] [address] Dr. Wilmer Francis EGFR-NON AF KYRGYZ >60 Normal >=60 [facility] Comment on above: Performed By: #### S EDR #### [facility] [address] [place] [address] Dr. Wilmer Francis Glucose [Mass/Vol] 135 mg/dL Critically high 74-[address] [facility] Comment on above: Performed By: #### S EDR #### [facility] [address] [place] [address] Dr. Wilmer Francis Potassium [Moles/Vol] 4.0 mmol/L Normal 3.5-5.1 [facility] Comment on above: Performed By: #### S EDR #### [facility] [address] [place] [address] Dr. Wilmer Francis Sodium [Moles/Vol] 120 mmol/L Critically low 136-145 [facility] Comment on above: Performed By: #### S EDR #### [facility] [address] [place] [address] Dr. Wilmer Francis Urea nitrogen [Mass/Vol] 9.0 mg/dL Normal 7.0-18.0 [facility] Comment on above: Performed By: #### S EDR #### [facility] [address] [place] [address] Dr. Wilmer Francis Urea nitrogen/Creatinine [Mass ratio] 12.5 mg/mg Normal [facility] Comment on above: Performed By: #### S EDR #### [facility] [address] [place] [address] Dr. Wilmer Francis RSVon 06-19-2022 RSV AG Negative Normal NEGATIVE [facility] Comment on above: Performed By: #### R SV, INFLUAB #### [facility] [address] [place] [address] Dr. Wilmer Francis SED RATE ROEBUCKERGRENon 2021 SED RATE 77 mm/hr Critically high <=20 [facility] Comment on above: Performed By: #### S EDR #### [facility] [address] [place] [address] Dr. Wilmer Francis SED RATE 101 mm/hr Critically high <=20 [facility] Comment on above: Performed By: #### P RTELEC #### [facility] [address] [place] [address] Dr. Wilmer Francis SODIUM RANDOM URINEon 2021 Sodium (U) [Moles/Vol] 43 mmol/L Normal 30-90 [facility] Comment on above: Performed By: #### B ALUMNAE SECRETARY #### [facility] [address] [place] [address] Dr. Wilmer Francis TSHon 06-19-2022 TSH 0.127 uIU/mL Critically low 0.358-3.740 [facility] Comment on above: Performed By: #### T SH, CRP #### [facility] [address] [place] [address] Dr. Wilmer Francis URINE T PROTEIN CREAT RATIOo n 06-19-2022 Protein (U) [Mass/Vol] 26.2 mg/dL Critically high <=12.0 [facility] Comment on above: Performed By: #### S EDR #### [facility] [address] [place], [place] [address] Dr. Wilmer Francis UR PROT CREAT RAT 0.15 Normal [facility] Comment on above: Performed By: #### S EDR #### [facility] [address] [place], [place] [address] Dr. Wilmer Francis URINE CREAT 178.86 mg/dL Normal 20.00-300.00 [facility] Comment on above: Performed By: #### S EDR #### [facility] [address] [place], [place] [address] Dr. Wilmer Francis XR CHEST 1 Von [...] KWAKU GEORGE Date: 2022-06-18 23:37 Normal [facility] COVID Quick Testingon 2021 Result Negative [employer]! Other CBC Auto Differentialon Basophils (Bld) [#/Vol] 0.05 10*3/uL [place] Basophils/100 WBC (Bld) 1 % 0 - 2 % [place] Differential Type NOT REPORTED [place] Eosinophils (Bld) [#/Vol] 10*3/uL [place] Eosinophils/100 WBC (Bld) 0 % Low 1 - 4 % [place] Erythrocyte distribution width (RBC) [Ratio] 12.7 % 11.8 - 14.4 % [place] Hematocrit (Bld) [Volume fraction] 49.2 % 40.7 - 50.3 % [place] Hemoglobin (Bld) [Mass/Vol] 16.3 g/dL 13 - 17 g/dL [place] Immature granulocytes (Bld) [#/Vol] 0 % 0 [place] Immature granulocytes (Bld) [#/Vol] 0.04 10*3/uL [place] Interpretation and review of laboratory results Abnormal [place] Lymphocytes (Bld) [#/Vol] 1.63 10*3/uL [place] Lymphocytes/100 WBC (Bld) 18 % Low 24 - 43 % [place] MCH (RBC) [Entitic mass] 30.4 pg 25.2 - 33.5 pg [place] MCHC (RBC) [Mass/Vol] 33.1 g/dL 28.4 - 34.8 g/dL [place] MCV (RBC) [Entitic vol] 91.8 fL 82.6 - 102.9 fL [place] Monocytes (Bld) [#/Vol] 0.73 10*3/uL [place] Monocytes/100 WBC (Bld) 8 % 3 - 12 % [place] Platelet mean volume (Bld) [Entitic vol] 9.8 fL 8.1 - 13.5 fL [place], [place] Platelets (Bld) [#/Vol] NOT REPORTED [place] Platelets (Bld) [#/Vol] 295 10*3/uL [place] RBC (Bld) [#/Vol] 5.36 10*6/uL 4.21 - 5.7 7 m/uL [place] RBC morphology finding Nom (Bld) NOT REPORTED [place] Segmented neutrophils/100 WBC (Bld) 73 % High 36 - 65 % [place] Segs Absolute 6.51 [place] WBC (Bld) [#/Vol] 9.0 10*3/uL [place] WBC (Bld) [#/Vol] 0.0 10*3/uL 0.0 per 10 0 WBC [place] WBC Morphology NOT REPORTED [place], [place] CBC with Diffon 06-07-2020 Abs. Basophil 0.05 k/uL Normal 0.00-0.20 [facility] Comment on above: Performed By: #### F T4, PSAS, LIPR #### [address] [address] Rooms Director: Jd Patricia MD #### CP, CDP, TSH #### [facility] [address] [place] [address] [place] [id number] Rooms Director: Mohamud Zamudio MD Abs.Imm.Granulocyte 0.04 k/uL Normal 0.00-0.30 [facility] Comment on above: Performed By: #### F T4, PSAS, LIPR #### [address] [address] Rooms Director: Jd Patricia MD #### CP, CDP, TSH #### [address] [place] [phone] Rooms Director: Mohamud Zamudio MD Abs.Neutrophil (Seg) 6.51 k/uL Normal 1.50-8.10 [facility] Comment on above: Performed By: #### F T4, PSAS, LIPR #### [address] [address] Rooms Director: Jd Patricia MD #### CP, CDP, TSH #### [address] [place] [phone] Rooms Director: Mohamud Zamudio MD Basophils/100 WBC (Bld) 1 % Normal 0-2 [facility] Comment on above: Performed By: #### F T4, PSAS, LIPR #### [address] [address] Rooms Director: Jd Patricia MD #### CP, CDP, TSH #### [address] [place] [phone] Rooms Director: Mohamud Zamudio MD Eosinophils (Bld) [#/Vol] 10*3/uL Normal 0.00-0.44 [facility] Comment on above: Performed By: #### F T4, PSAS, LIPR #### [place] [address] [place] [address] Rooms Director: Jd Patricia MD #### CP, CDP, TSH #### [facility] [address] [place] [address] Dr. [place], [place] [phone] Rooms Director: Mohamud Zamudio MD Eosinophils/100 WBC (Bld) 0 % Low 1-4 [facility] Comment on above: Performed By: #### F T4, PSAS, LIPR #### [address] [address] Rooms Director: Jd Patricia MD #### CP, CDP, TSH #### [facility] [address] [place] [address] Dr. [place], [place] [phone] Rooms Director: Mohamud Zamudio MD Erythrocyte distribution width (RBC) [Ratio] 12.7 % Normal 11.8-14.4 [facility] Comment on above: Performed By: #### F T4, PSAS, LIPR #### [address] [address] Rooms Director: Jd Patricia MD #### CP, CDP, TSH #### [facility] [address] [place] [address] Dr. [place], [place] [phone] Rooms Director: Mohamud Zamudio MD Hematocrit (Bld) [Volume fraction] 49.2 % Normal 40.7-50.3 [facility] Comment on above: Performed By: #### F T4, PSAS, LIPR #### [address] [address] Rooms Director: Jd Patricia MD #### CP, CDP, TSH #### [address] [place], [place] [phone] Rooms Director: Mohamud Zamudio MD Hemoglobin (Bld) [Mass/Vol] 16.3 g/dL Normal 13.0-17.0 [facility] Comment on above: Performed By: #### F T4, PSAS, LIPR #### [place] [address] [place] [address] Rooms Director: Jd Patricia MD #### CP, CDP, TSH #### [facility] [address] [place], [place] [phone] Rooms Director: Mohamud Zamudio MD Immature granulocytes (Bld) [#/Vol] 0 % Normal 0 [facility] Comment on above: Performed By: #### F T4, PSAS, LIPR #### [address] [address] Rooms Director: Jd Patricia MD #### CP, CDP, TSH #### [facility] [address] [place] [address] Dr. [place] [phone] Rooms Director: Mohamud Zamudio MD Lymphocytes (Bld) [#/Vol] 1.63 10*3/uL Normal 1.10-3.70 [facility] Comment on above: Performed By: #### F T4, PSAS, LIPR #### [address] [address] Rooms Director: Jd Patricia MD #### CP, CDP, TSH #### [facility] [address] [place] [address] Dr. [place] [phone] Rooms Director: Mohamud Zamudio MD Lymphocytes/100 WBC (Bld) 18 % Low 24-43 [facility] Comment on above: Performed By: #### F T4, PSAS, LIPR #### [address] [address] Rooms Director: Jd Patricia MD #### CP, CDP, TSH #### [facility] [address] [place], [place] [phone] Rooms Director: Mohamud Zamudio MD MCH (RBC) [Entitic mass] 30.4 pg Normal 25.2-33.5 [facility] Comment on above: Performed By: #### F T4, PSAS, LIPR #### [address] [address] Rooms Director: Jd Patricia MD #### CP, CDP, TSH #### [address] [place] [address] Rooms Director: Mohamud Zamudio MD MCHC (RBC) [Mass/Vol] 33.1 g/dL Normal 28.4-34.8 [facility] Comment on above: Performed By: #### F T4, PSAS, LIPR #### [place] [address] Rooms Director: Jd Patricia MD #### CP, CDP, TSH #### [address] [place] [phone] ( Rooms Director: Mohamud Zamudio MD MCV (RBC) [Entitic vol] 91.8 fL Normal 82.6-102.9 [facility] Comment on above: Performed By: #### F T4, PSAS, LIPR #### [address] [address] Rooms Director: Jd Patricia MD #### CP, CDP, TSH #### [address] [place] [phone] Rooms Director: Mohamud Zamudio MD Monocytes (Bld) [#/Vol] 0.73 10*3/uL Normal 0.10-1.20 [facility] Comment on above: Performed By: #### F T4, PSAS, LIPR #### [address] [id number] Rooms Director: Jd Patricia MD #### CP, CDP, TSH #### [address] [place] [phone] Rooms Director: Mohamud Zamudio MD Monocytes/100 WBC (Bld) 8 % Normal 3-12 [facility] Comment on above: Performed By: #### F T4, PSAS, LIPR #### [address] [place] [address] Rooms Director: Jd Patricia MD #### CP, CDP, TSH #### [facility] [address] [place] [address] Rooms Director: Mohamud Zamudio MD Neutrophil (Seg) 73 % High 36-65 [facility] Comment on above: Performed By: #### F T4, PSAS, LIPR #### [address] [address] Rooms Director: Jd Patricia MD #### CP, CDP, TSH #### [facility] [address] [place] [address] [place] [address] Rooms Director: Mohamud Zamudio MD NRBC Automated 0.0 per 100 WBC Normal 0.0 [facility] Comment on above: Performed By: #### F T4, PSAS, LIPR #### [address] [address] Rooms Director: Jd Patricia MD #### CP, CDP, TSH #### [address] [place] [address] Rooms Director: Mohamud Zamudio MD Platelet mean volume (Bld) [Entitic vol] 9.8 fL Normal 8.1-13.5 [facility] Comment on above: Performed By: #### F T4, PSAS, LIPR #### [address] [address] Rooms Director: Jd Patricia MD #### CP, CDP, TSH #### [facility] [address] [place], [place] [phone] Rooms Director: Mohamud Zamudio MD Platelets (Bld) [#/Vol] 295 10*3/uL Normal 138-453 [facility] Comment on above: Performed By: #### F T4, PSAS, LIPR #### [address] [address] Rooms Director: Jd Patricia MD #### CP, CDP, TSH #### [address] [place] [phone] ( Rooms Director: Mohamud Zamudio MD RBC (Bld) [#/Vol] 5.36 10*6/uL Normal 4.21-5.77 [facility] Comment on above: Performed By: #### F T4, PSAS, LIPR #### [address] [address] Rooms Director: Jd Patricia MD #### CP, CDP, TSH #### [address] [place] [address] Rooms Director: Mohamud Zamudio MD WBC (Bld) [#/Vol] 9.0 10*3/uL Normal 3.5-11.3 [facility] Comment on above: Performed By: #### F T4, PSAS, LIPR #### [address] [address] Rooms Director: Jd Patricia MD #### CP, CDP, TSH #### [address] [place] [phone] ( Rooms Director: Mohamud Zamudio MD Auto Diff Performed NOT REPORTED Normal [facility] Comment on above: Performed By: #### F T4, PSAS, LIPR #### [address] [address] Rooms Director: Jd Patricia MD #### CP, CDP, TSH #### [address] [place] [phone] ( Rooms Director: Mohamud Zamudio MD Platelets (Bld) [#/Vol] NOT REPORTED Normal [facility] Comment on above: Performed By: #### F T4, PSAS, LIPR #### [address] [address] Rooms Director: Jd Patricia MD #### CP, CDP, TSH #### [facility] [address] [place] [address] Dr. [place], [place] [phone] Rooms Director: Mohamud Zamudio MD RBC morphology finding Nom (Bld) NOT REPORTED Normal [facility] Comment on above: Performed By: #### F T4, PSAS, LIPR #### [address] [address] Rooms Director: Jd Patricia MD #### CP, CDP, TSH #### [facility] [address] [place] [address] [place] [address] Rooms Director: Mohamud Zamudio MD WBC Morphology NOT REPORTED Normal [facility] Comment on above: Performed By: #### F T4, PSAS, LIPR #### [address] [address] Rooms Director: Jd Patricia MD #### CP, CDP, TSH #### [facility] [address] [place] [address] Dr. [place], [place] [phone] Rooms Director: Mohamud Zamudio MD CT ABDOMEN PELVIS W [...] Cristobal Jr., DO 06/07/20 Final result Normal [facility] CT ABDOMEN PELVIS W IV CONTR AST Additional Contrast? Oralon 06-07-2020 No acute intra-abdominal process. [facility], [place] EXAMINATION: CT OF THE ABDOMEN AND [...] acute findings. Osseous structures demonstrate degenerative change. [facility], [place] [facility], M[facility]pn Incoming Radiant Results From [email or web address] - 06/07/2020 12:58 PM EST EXAMINATION: CT [...] degenerative change. IMPRESSION: No acute intra-abdominal process. [facility], [place] Comp Metabolic Profon 2019 (cont.) Normal [facility] Comment on above: Result Comment: Aver age GFR for 60-69 years old: 85 mL/min/1.73sq m Chronic Kidney Disease: <60 mL/min/1.73sq m Kidney failure: <15 mL/min/1.73sq m eGFR calculated using average adult body mass. Additional eGFR calculator available at: http://www.[employer].Reebonz/multiple_crcl_2012.htm Performed By: #### F T4, PSAS, LIPR #### [facility] [address] [place] [address] Rooms Director: Jd Patricia MD #### CP, CDP, TSH #### [facility] Lab [address] [place] [address] Rooms Director: Mohamud Zamudio MD Albumin [Mass/Vol] 4.6 g/dL Normal 3.5-5.2 [facility] Comment on above: Performed By: #### F T4, PSAS, LIPR #### [address] [address] Rooms Director: Jd Patricia MD #### CP, CDP, TSH #### [facility] [address] [place] [id number] ( Rooms Director: Mohamud Zamudio MD Albumin/Globulin [Mass ratio] 1.3 {ratio} Normal 1.0-2.5 [facility] Comment on above: Performed By: #### F T4, PSAS, LIPR #### [address] [address] Rooms Director: Jd Patricia MD #### CP, CDP, TSH #### [facility] [address] [place] [address] [place] [place] [id number] ( Rooms Director: Mohamud Zamudio MD Alkaline Phos 76 U/L Normal 40-129 [facility] Comment on above: Performed By: #### F T4, PSAS, LIPR #### [address] [address] Rooms Director: Jd Patricia MD #### CP, CDP, TSH #### [facility] [address] [place] [id number] ( Rooms Director: Mohamud Zamudio MD ALT [Catalytic activity/Vol] 26 U/L Normal 5-41 [facility] Comment on above: Performed By: #### F T4, PSAS, LIPR #### [address] [address] Rooms Director: Jd Patricia MD #### CP, CDP, TSH #### [facility] [address] [place], [place] [phone] Rooms Director: Mohamud Zamudio MD Anion gap [Moles/Vol] 7 mmol/L Low 9-17 [facility] Comment on above: Performed By: #### F T4, PSAS, LIPR #### [address] [address] Rooms Director: Jd Patricia MD #### CP, CDP, TSH #### [facility] [address] [place], [place] [phone] Rooms Director: Mohamud Zamudio MD AST [Catalytic activity/Vol] 27 U/L Normal <40 [facility] Comment on above: Performed By: #### F T4, PSAS, LIPR #### [address] [address] Rooms Director: Jd Patricia MD #### CP, CDP, TSH #### [facility] [address] [place], [place] [id number] Rooms Director: Mohamud Zamudio MD Bilirubin Ql (U) 0.66 mg/dL Normal 0.3-1.2 [facility] Comment on above: Performed By: #### F T4, PSAS, LIPR #### [address] [address] Rooms Director: Jd Patricia MD #### CP, CDP, TSH #### [facility] [address] [place], [place] [id number] Rooms Director: Mohamud Zamudio MD BUN/CRE Ratio 11 Normal 9-20 [facility] Comment on above: Performed By: #### F T4, PSAS, LIPR #### [address] [address] Rooms Director: Jd Patricia MD #### CP, CDP, TSH #### [facility] [address] [place], [place] [phone] Rooms Director: Mohamud Zamudio MD Calcium [Mass/Vol] 9.7 mg/dL Normal 8.6-10.4 [facility] Comment on above: Performed By: #### F T4, PSAS, LIPR #### [address] [place] [address] Rooms Director: Jd Patricia MD #### CP, CDP, TSH #### [facility] [address] [place], [place] [phone] Rooms Director: Mohamud Zamudio MD Chloride [Moles/Vol] 100 mmol/L Normal 98-107 [facility] Comment on above: Performed By: #### F T4, PSAS, LIPR #### [address] [address] Rooms Director: Jd Patricia MD #### CP, CDP, TSH #### [facility] [address] [place], [place] 3109383 Rooms Director: Mohamud Zamudio MD CO2 [Moles/Vol] 30 mmol/L Normal 20-31 [facility] Comment on above: Performed By: #### F T4, PSAS, LIPR #### [address] [address] Rooms Director: Jd Patricia MD #### CP, CDP, TSH #### [facility] [address] [place] [address] Rooms Director: Mohamud Zamudio MD Creatinine [Mass/Vol] 0.74 mg/dL Normal 0.70-1.20 [facility] Comment on above: Performed By: #### F T4, PSAS, LIPR #### [address] [address] Rooms Director: Jd Patricia MD #### CP, CDP, TSH #### [facility] [address] [place], [place] 0331983 Rooms Director: Mohamud Zamudio MD GFR, Amer >60 Normal >60 [facility] Comment on above: Performed By: #### F T4, PSAS, LIPR #### [address] [address] Rooms Director: Jd Patricia MD #### CP, CDP, TSH #### [address] [place], [place] 38[address]83 Rooms Director: Mohamud Zamudio MD GFR,non Amer >60 Normal >60 [facility] Comment on above: Performed By: #### F T4, PSAS, LIPR #### [address] [address] Rooms Director: Jd Patricia MD #### CP, CDP, TSH #### [address] [place] [address] Rooms Director: Mohamud Zamudio MD Glucose [Mass/Vol] 140 mg/dL High 70-99 [facility] Comment on above: Performed By: #### F T4, PSAS, LIPR #### [address] [address] Rooms Director: Jd Patricia MD #### CP, CDP, TSH #### [address] [place] [address] Rooms Director: Mohamud Zamudio MD Potassium [Moles/Vol] 4.3 mmol/L Normal 3.7-5.3 [facility] Comment on above: Performed By: #### F T4, PSAS, LIPR #### [address] [address] Rooms Director: Jd Patricia MD #### CP, CDP, TSH #### [address] [place] [address] Rooms Director: Mohamud Zamudio MD Protein [Mass/Vol] 8.2 g/dL Normal 6.4-8.3 [facility] Comment on above: Performed By: #### F T4, PSAS, LIPR #### [address] [address] Rooms Director: Jd Patricia MD #### CP, CDP, TSH #### [address] [place] [address] Rooms Director: Mohamud Zamudio MD Sodium [Moles/Vol] 137 mmol/L Normal 135-144 [facility] Comment on above: Performed By: #### F T4, PSAS, LIPR #### [address] [address] Rooms Director: Jd Patricia MD #### CP, CDP, TSH #### [address] [place] [address] Rooms Director: Mohamud Zamudio MD Staging: Normal [facility] Comment on above: Result Comment: Stag e 1: Some kidney damage normal GFR Stage 2: Mild kidney damage GFR 60-89 Stage 3: Moderate kidney damage GFR 30-59 Stage 4: Severe kidney damage GFR 15-29 Stage 5: Severe kidney damage GFR <15 ESRD - chronic treatment by dialysis or transplant Performed By: #### F T4, PSAS, LIPR #### [address] [address] Rooms Director: Jd Patricia MD #### CP, CDP, TSH #### [address] [place] [address] Rooms Director: Mohamud Zamudio MD Urea nitrogen [Mass/Vol] 8 mg/dL Normal 8-23 [facility] Comment on above: Performed By: #### F T4, PSAS, LIPR #### [address] [address] Rooms Director: Jd Patricia MD #### CP, CDP, TSH #### [address] [place] [address] Rooms Director: Mohamud Zamudio MD [facility] Metabolic [facility] 06-07-2020 Albumin [Mass/Vol] 4.6 g/dL 3.5 - 5.2 g/dL [place], [place] Albumin/Globulin [Mass ratio] 1.3 {ratio} [place] ALP [Catalytic activity/Vol] 76 U/L 40 - 129 U/L [place] ALT [Catalytic activity/Vol] 26 U/L 5 - 41 U/L [place] Anion gap [Moles/Vol] 7 mmol/L Low 9 - 17 mmol/L [place] AST [Catalytic activity/Vol] 27 U/L <40 [place] Bilirubin Ql (U) 0.66 mg/dL 0.3 - 1.2 mg/dL [place] Bun/Cre Ratio 11 [place] Calcium [Mass/Vol] 9.7 mg/dL 8.6 - 10. 4 mg/dL [place] Chloride [Moles/Vol] 100 mmol/L 98 - 10 7 mmol/L [place] CO2 [Moles/Vol] 30 mmol/L 20 - 31 mmol/L [place] Creatinine [Mass/Vol] 0.74 mg/dL 0.7 - 1.2 mg/dL [place] GFR >60 >60 mL/min [place], [place] GFR Non- >60 >60 mL/min [place] Glucose [Mass/Vol] 140 mg/dL High 70 - 99 mg/dL [place], [place] Interpretation and review of laboratory results Abnormal [place] Potassium [Moles/Vol] 4.3 mmol/L 3.7 - 5.3 mmol/L [place] Protein [Mass/Vol] 8.2 g/dL 6.4 - 8.3 g/dL [place] Sodium [Moles/Vol] 137 mmol/L 135 - 144 mmol/L [place] Urea nitrogen [Mass/Vol] 8 mg/dL 8 - 23 mg/dL [place] Lipid Panelon 06-07-2020 Cholesterol [Mass/Vol] 194 mg/dL <200 [place] Comment on above: Cholesterol Guidelines: <200 Desirable 200-240 Borderline >240 Undesirable Cholesterol in HDL [Mass/Vol] 54 mg/dL >40 [place] Comment on above: HDL Guidelines: <40 Undesirable 40-59 Borderline >59 Desirable Cholesterol in LDL [Mass/Vol] 124 mg/dL 0 - 130 mg/dL [place] Comment on above: LDL Guidelines: <100 Desirable 100-129 Near to/above Desirable 130-159 Borderline >159 Undesirable Direct (measured) LDL and calculated LDL are not interchangeable tests. Cholesterol in VLDL [Mass/Vol] NOT REPORTED 1 - 30 mg/dL [place] Cholesterol.total/Cho lesterol in HDL [Mass ratio] 3.6 {ratio} <5 [place] Triglyceride [Mass/Vol] 81 mg/dL <150 [place] Comment on above: Triglyceride Guidelines: <150 Desirable 150-199 Borderline 200-499 High >499 Very high Based on AHA Guidelines for fasting triglyceride, April 2012. Lipid Profileon 06-07-2020 Cholesterol [Mass/Vol] 194 mg/dL Normal <200 [facility] Comment on above: Result Comment: Cholesterol Guidelines: <200 Desirable 200-240 Borderline >240 Undesirable Performed By: #### F T4, PSAS, LIPR #### [address] [phone] Rooms Director: Jd Patricia MD #### CP, CDP, TSH #### [facility] [address] [place] [address] [place] [phone] Rooms Director: Mohamud Zamudio MD Cholesterol in HDL [Mass/Vol] 54 mg/dL Normal >40 [facility] Comment on above: Result Comment: HDL Guidelines: <40 Undesirable 40-59 Borderline >59 Desirable Performed By: #### F T4, PSAS, LIPR #### [address] [phone] Rooms Director: Jd Patricia MD #### CP, CDP, TSH #### [facility] [address] [place] [phone] Rooms Director: Mohamud Zamudio MD Cholesterol in LDL [Mass/Vol] 124 mg/dL Normal 0-130 [facility] Comment on above: Result Comment: LDL Guidelines: <100 Desirable 100-129 Near to/above Desirable 130-159 Borderline >159 Undesirable Direct (measured) LDL and calculated LDL are not interchangeable tests. Performed By: #### F T4, PSAS, LIPR #### [facility] [address] [place] [address] Rooms Director: Jd Patricia MD #### CP, CDP, TSH #### [facility] [address] [place], [place] 9582383 Rooms Director: Mohamud Zamudio MD Cholesterol.total/Cho lesterol in HDL [Mass ratio] 3.6 {ratio} Normal <5 [facility] Comment on above: Performed By: #### F T4, PSAS, LIPR #### [address] [address] Rooms Director: Jd Patricia MD #### CP, CDP, TSH #### [facility] [address] [place] [address] Rooms Director: Mohamud Zamudio MD Triglyceride [Mass/Vol] 81 mg/dL Normal <150 [facility] Comment on above: Result Comment: Triglyceride Guidelines: <150 Desirable 150-199 Borderline 200-499 High >499 Very high Based on AHA Guidelines for fasting triglyceride, April 2012. Performed By: #### F T4, PSAS, LIPR #### [address] [place] [address] Rooms Director: Jd Patricia MD #### CP, CDP, TSH #### [facility] [address] [place] [address] Rooms Director: Mohamud Zamudio MD Cholesterol in VLDL [Mass/Vol] NOT REPORTED Normal 1-30 [facility] Comment on above: Performed By: #### F T4, PSAS, LIPR #### [address] [address] Rooms Director: Jd Patricia MD #### CP, CDP, TSH #### [facility] [address] [place] [address] Rooms Director: Mohamud Zamudio MD [facility] KAYCEE DIGITAL DIAGNOSTIC BILATERALon 06-07-2020 [facility] KAYCEE DIGITAL DIAGNOSTIC BILATERAL EXAMINATION: [...] James Samuel MD 06/07/20 Final result Normal [facility] Metabolic Panelon 06-07-2020 GFR/1.73 sq M predicted among non-blacks MDRD (S/P/Bld) [Vol rate/Area] [place], [place] Comment on above: Average GFR for 60-6 9 years old: 85 mL/min/1.73sq m Chronic Kidney Disease: <60 mL/min/1.73sq m Kidney failure: <15 mL/min/1.73sq m eGFR calculated using average adult body mass. Additional eGFR calculator available at: http://www.[employer].Reebonz/multiple_crcl_2012.htm Stage 1: Some kidney damage normal GFR [...] sent to the patient regarding the results. [facility] OR EXAMINATION: DIAGNOSTIC DIGITAL BILATERAL BREASTS MAMMOGRAM [...] enlarged or suspicious left axillary lymph nodes. [facility] SMS [employer] [place], [place] Amol, Mhpn Incoming Radiant Results From [email or web address] - 06/07/2020 12:14 PM EST EXAMINATION: DIAGNOSTIC [...] sent to the patient regarding the results. [place], [place] PSA, Screeningon 06-07-2020 Prostatic Spec. Ag 0.47 ug/L Normal <4.1 [facility] Comment on above: Result Comment: The Graciela ECLIA assay is used. Results obtained with different assay methods cannot be used interchangeably. Performed By: #### F T4, PSAS, LIPR #### [facility] [address] [place] [address] Rooms Director: Jd Patricia MD #### CP, CDP, TSH #### [facility] [address] [place] [address] Rooms Director: Mohamud Zamudio MD T4, Freeon 06-07-2020 Thyroxine, Free 1.37 ng/dL 0.93 - 1.7 ng/dL [place] TSH without Reflexon 020 TSH Qn 0.70 m[IU]/L [place], [place] Thyroid Stim. Horm.on 2019 TSH Qn 0.70 m[IU]/L Normal 0.30-5.00 [facility] Comment on above: Performed By: #### F T4, PSAS, LIPR #### [facility] [address] [place], [place] [id number] Rooms Director: Jd Patricia MD #### CP, CDP, TSH #### [facility] [address] [place] [address] [place] [address] Rooms Director: Mohamud Zamudio MD Thyroxine, Freeon 06-07-2020 Thyroxine, Free 1.37 ng/dL Normal 0.93-1.70 [facility] Comment on above: Performed By: #### F T4, PSAS, LIPR #### [facility] [address] [place], [place] [id number] Rooms Director: Jd Patricia MD #### CLEO, CDP, TSH #### [address] [place] [address] Rooms Director: Mohamud Zamudio MD US BREAST COMPLETE LEFTon [...] James Samuel MD 06/07/20 Final result Normal [facility] Vital Signs Date Time Vital Sign Value Performing Clinician Facility 07-14-2021 14:30-0500 Body height 170.18 cm Jazmin Ginty Other [facility] Other 07-14-2021 14:30-0500 Body mass index (BMI) [Ratio] 33.67 kg/m2 Jazmin Ginty Other [facility] Other 07-14-2021 14:30-0500 Body temperature 97.7 [degF] Jazmin Ginty Other [facility] Other 07-14-2021 14:30-0500 Body weight 97.52 kg Jazmin Ginty Other [facility] Other 07-14-2021 14:30-0500 Respiratory rate 16 /min Jazmin Ginty Other [facility] Other 07-14-2021 14:30-0500 SaO2% (BldA) [Mass fraction] 92 % Jazmin Ginty Other [facility] Other Encounters Encounter Date Encounter Type Care Provider Facility Start: 01-05-2024 End: 01-05-2024 ambulatory [facility] Start: 12-04-[address] JOE [...] 07-14-2021 End: 07-14-2021 ambulatory Jazmin Ginty Other [facility] Other Start: 07-14-2021 Office outpatient vi sit 15 minutes Jazmin Ginty [facility] Start: 06-07-2020 End: 06-10-2020 Patient encounter procedure JOE MUSA [facility] Start: 06-07-2020 End: 06-09-2020 Subsequent hospital visit by physician [facility] Drawing Room [facility] Laboratory Comment on above: Arrived Breast lump Generalized abdomina l pain Lump in central port ion of left breast Lump or mass in [address] Procedures Date Procedure Procedure Detail Performing Clinician Start: 12-04-[address] JOE MUSA Comment on above: Performed By: #### B ALUMNAE SECRETARY #### [facility] [address] [address] [address] Wilmer Francis Start: 07-16-[address] JOE MUSA Comment on above: Performed By: #### T SH, CRP #### [facility] [address] [address] [address] Wilmer Francis Start: 06-07-2020 [object Object] [facility] Comment on above: The Graciela ECLIA as [...] Author Start: 06-07-2025 Lipid panel Lipid screen [place], [place] Start: 03-07-2020 Influenza vaccination Flu vaccine (# 1) [place] Start: 11-16-2005 Screening for malign ant neoplasm of colon Colon cancer screen colonoscopy [place] Start: 11-16-2005 Shingles Vaccine (1 of 2) Shingles Vaccine (1 of 2) [place] Start: 1995 Lipid panel Lipid [place] Start: 11-16-1974 DTaP/Tdap/Td vaccine (1 - Tdap) DTaP/Tdap/Td vaccine (1 - Tdap) [place] Start: 11-16-1970 HIV screening HIV screen [place] Start: 1955 Hepatitis C screening Hepatitis C [facility] [place] Payers Date Payer Category Payer Private Health Insurance [id number] 1959 Medicare [id number] 2. [id number] 1959 Self-pay 1955 Unknown [id number] 2.16.8 [id number] 1955 Unknown [id number] 2.16.8 [id number] 1955 Unknown [id number] 2.16.8 [id number] 1955 Unknown [id number] 2.16.8 [id number] 1955 Unknown [id number] 2.16.8 [id number] 1955 Unknown [id number] 2.16.84 0.1.345122.3.579.2.593 1955 Unknown [id number] 2.16.84 0.1.567870.3.579.2.593 1955 Unknown [id number] 2.16.84 0.1.558899.3.579.2.593 1955 Unknown [id number] 2.16.84 0.1.085127.3.579.2.593 1955 Unknown [id number] 2.16.84 0.1.689747.3.579.2.593 1955 Unknown [id number] 2.16.84 0.1.172028.3.579.2.593 1955 Unknown [id number] 2.16.84 0.1.969125.3.579.2.593 1955 Unknown [id number] 2.16.84 0.1.132817.3.579.2.593 Unknown [id number] 2.16.84 0.1.490067.3.579.2.593 Social History Date Type Detail Facility Tobacco smoking status NHIS [facility] on file [facility] Exposure to SARS-CoV -2 (event) Not sure [facility]igned At Sex Assigned At Bir th [facility] Other Progress note 01-05-2024 Note Date & Type Note Facility 01-05-2024 Note [place] [facility] Subjective Bipin Ulloa is a 68 [...] Problem List Diagnosis Chronic obstructive lung disease ([facility]) Fatigue Gastroesophageal reflux disease Hyperlipidemia Hypertensive disorder Obesity Type 2 diabetes mellitus ([facility]) Family History Problem Relation Name Age of [...] , Rfl: ergocalciferol (Vitamin D-2) 1.25 MG (85629 Units) capsule, THE 1 CAPSULE BY MOUTH ONCE (more content not included)... [facility] Evaluation note 07-14-2021 Note Date & Type [...] Patient care instructions given in writting by [facility] Care At Home document [facility] Other History general Narrative - Reported Note Date & Type Note Facility History general Narrative - Reported Type Medical History high blood pressure Surgical History cyst on head Hospitalization History pnemonia Hospitalization History stress related [facility] Other Reason for Referral Status Reason Specialty Diagnoses / Procedures Referred By Contact Referred To Contact Pending Review Radiology Diagnoses Breast lump Procedures US BREAST COMPLETE LEFT Joe Musa MD [address] [place] [phone] Status Reason Specialty Diagnoses / Procedures Referred By Contact Referred To Contact Pending Review Radiology Diagnoses Generalized abdominal pain Procedures CT ABDOMEN PELVIS W IV CONTRAST Additional Contrast? Oral Joe Musa MD [address] [place] [address] Status Reason Specialty Diagnoses / Procedures Referre d By Contact Referred To Contact Closed Radiology Diagnoses Lump or mass in breast Procedures ADAL KAYCEE DIGITAL DIAGNOSTIC BILATERAL Joe Musa MD [address] [place] [address] Assessments Diagnosis Breast lump Lump or mass [...] Joe Musa MD [address] [place] [address] [facility] Ultrasound [address] [place], [place] [id number] Status Reason Specialty Diagnoses / Procedures Referre d By Contact Referred To Contact Closed Radiology Diagnoses Generalized abdominal pain Procedures HC CT ABDOMEN PELVIS W CONTRAST Joe Musa MD [address] [place] [address] [facility] [address] [facility] [address] [id number] Status Reason Specialty Diagnoses / Procedures Referred By Contact Referred To Contact Authorized Radiology Diagnoses Unspecified lump in unspecified breast Procedures US BREAST COMP Joe Musa MD [address] [place] [address] [facility] Ultrasound [address] [place] [address] Status Reason Specialty Diagnoses / Procedures Referre d By Contact Referred To Contact Closed Radiology Diagnoses Lump or mass in breast Procedures ADAL KAYCEE DIGITAL DIAGNOSTIC BILATERAL Joe Musa MD [address] [address] (unrecognized sect ion and content) No Status Records FoundNo Status Records FoundNo Status Records FoundNo Status Records Found INFORMATION SOURCE (unrecogn ized section and content) DATE CREATED AUTHOR 06/10/2020 [facility] DATE CREATED AUTHOR AUTHOR'S ORGANIZ ATION 12/13/2022 [facility] DATE CREATED AUTHOR AUTHOR'S ORGANIZ ATION 09/21/2024 [facility] DATE CREATED AUTHOR AUTHOR'S ORGANIZ ATION 09/30/2024 [facility] FOR RECORDS PERTAINING TO PATIENTS WHO ARE [...] BE BASED ON THE PRIMARY CLINICAL RECORDS. [employer] [facility]. provides no warranty or guarantee of the accuracy or completeness of information in this document.
== END 2024-12-16 09:28 | disposition home or self-care (01) ==
LOC: RAD 09:27
PROVIDERS: PCP Family Medicine; Visit Provider Family Medicine
DX: J20.9 Acute bronchitis, unspecified (principal); R09.89 Other specified symptoms and signs involving the circulatory and respiratory systems
CPT/HCPCS: 71046

== ENCOUNTER 2025-01-03 09:55 | Outpatient (OUT) | payer MEDICARE, SELFPAY ==
--- NOTE | 2025-01-03 10:10 | CT_ITS ---
The [address] [address] Patient Name: BIPIN ULLOA MRN: [id number] date: 1955 Sex: M Assigned Patient Location: CT Current Patient Location: CT Accession/Order Number: [id number] Exam Date: 01/03/2025 10:24 Report Date: 01/03/2025 10:34 At the request of: DARIN AIKEN DO Procedure: CT lung screening low-dose LOW-DOSE SCREENING CHEST CT WITHOUT CONTRAST COMPARISON: 11/21/2023 CLINICAL DATA: Former smoker for approximately 45 years. Spiral axial unenhanced low-dose images were obtained through the chest. Images were reviewed using both narrow and wide window settings. This CT exam was performed using one or more following dose reduction techniques: Automated exposure control, adjustment of the mA and/or kV according to patient size, or use of iterative reconstruction technique. The heart is normal in size. No pericardial effusion is present. There is coronary artery disease. No aortic aneurysm is identified. There is minor plaque at the aortic arch, descending aorta and proximal great vessels. There are tiny nonpathologic mediastinal lymph nodes. Slight dextroscoliotic curvature and mild endplate spurring are seen at the spine. Calcified pleural plaque is again noted on the left. Left apical scarring is again seen. There is continued atelectasis and/or scarring at the right base adjacent to an elevated hemidiaphragm. Minimal linear scarring is visualized at the left lower lobe. There is no new consolidation, pleural effusion or pneumothorax. A stable 3 - 4 mm nodule is present at the right upper lobe (axial image 40). There is no developing adenopathy. Limited imaging through the upper abdomen shows a potential right upper pole renal cyst. CT/CT lung screening low-dose IMPRESSION: CHRONIC ELEVATION OF THE RIGHT HEMIDIAPHRAGM WITH ADJACENT ATELECTASIS AND/OR SCARRING. LEFT-SIDED CALCIFIED PLEURAL PLAQUE. TINY STABLE RIGHT UPPER LOBE PULMONARY NODULE. NO DEVELOPING NODULARITY. Lung RADS category 2 - benign Twelve-month low-dose CT follow-up suggested.. Impression dictated by: Ml Garvin M.D. 01/03/2025 10:34 AM Dictation Location: [place] [address] Electronically authenticated by: [id number] Date: 01/03/2025 10:34
== END 2025-01-03 09:56 | disposition home or self-care (01) ==
LOC: CT 09:55
PROVIDERS: PCP Family Medicine; Visit Provider Internal Medicine
DX: R91.1 Solitary pulmonary nodule (principal); Z87.891 Personal history of nicotine dependence; Z12.2 Encounter for screening for malignant neoplasm of respiratory organs
CPT/HCPCS: 71271

== ENCOUNTER 2025-02-09 09:27 | Outpatient (OUT) | payer MEDICARE, SELFPAY ==
--- OUTSIDE RECORDS SUMMARY | 2025-01-25 07:00 | XMS_ITS ---
Author Organization [facility] in [place] Address [address] [place] [address] Care Team Providers Care House Moving Supervisor Name Role Phone Navarrete Joe Primary Care Provider Janet Wu Unavailable [phone] Allergies No Known Allergies Results Component Value Reference Range Notes MTX PANEL (CBC, ALB,ALT, AST , ALK ,CREA w/GFR CKD-EPI)) Reviewed date:01/25/2025 06:11:19 PM Interpretation: Performing Lab:[facility], [address] [place], [address] [phone] Notes/Report: LINDA COSBY FACILITY: [facility] [id number] WBC 8.04 (3.80 - 10.60) x10^3ul HEMOGLOBIN 16.5 (14.0 - 18.0) G/DL HEMATOCRIT 48.8 (42.0 - 52.0) % MCH 31.2 (27.0 - 33.0) PG MCHC 33.8 (30.0 - 37.0) G/DL ALBUMIN 4.6 (3.5 - 5.0) G/DL ALT (SGPT) 24 (1 - 45) U/L AST (SGOT) 33 (15 - 46) U/L ALK PHOS 60 (38 - 126) U/L CREATININE, BLOOD 0.67 (0.66 - 1.25) MG/DL GFR by CKD-EPI 101.1 (60.0) ML/M1.7 RBC 5.29 (4.70 - 6.10) x10^6ul MCV 92.2 (80.0 - 94.0) fl PLT 280 (130 - 400) x10^3ul SED RATE and CRP Reviewed date:01/25/2025 06:11:14 PM Interpretation: Performing Lab:[facility], [address], [place], [address] [phone] Notes/Report: LAV,SST FACILITY: [facility] [id number] SED RATE WEST. 30 (0 - 24) MM/HR CRP EXTENDED RANGE 3.78 (0.00 - 5.00) MG/L REASON FOR VISIT -4 Month Follow Up- Medications Medication SIG (Take, Route, Frequency, Duration) Notes Start Date End Date Status Vitamin D 50 MCG (1999 UT) 1 capsule Ora lly Once a day Active Albuterol Sulfate HFA 108 (9 0 Base) MCG/ACT 2 puffs as needed for SOB Inhalation every 4 hrs for 90 days 12/01/2024 Not-Taking predniSONE 20 MG 3 tablets daily for 3 days then 2 tablets daily for 3 days then 1 tablet daily for 3 days Orally for 9 days 08/11/2024 Active Vitamin C Active sulfaSALAzine 500 MG TAKE 2 TABLETS BY MOUTH TWICE A DAY for 90 days Active Pantoprazole Sodium 40 MG TAKE 1 TABLET BY MOUTH TWICE A DAY for 90 Active Lisinopril 40 MG TAKE 1 TABLET BY MOUTH EVERY DAY for 90 Active Melatonin Active Metoprolol Tartrate 50 MG TAKE 1 AND 1/2 TABLET BY MOUTH TWICE DAILY FOR 90 DAYS Active Nystatin 498663 UNIT/ML 4 mL Mouth/Throat Four times a day for 30 days swish and swallow 12/02/2024 Active Doxycycline Hyclate 100 MG 1 capsule Ora lly BID for 7 days 12/15/2024 Active hydroCHLOROthiazide 12.5 MG 1 tablet in the morning Orally Once a day 10/01/2023 Not-Taking Hydroxychloroquine Sulfate 200 MG 1 tablet with food or milk Orally BID Active Ibuprofen PRN Active Ipratropium-Albuterol 0.5-2. 5 (3) MG/3ML 3mL Inhalation QID Active Aspirin Active Atorvastatin Calcium 10 MG TAKE 1 TABLET BY MOUTH EVERY DAY for 90 Active Budesonide-Formoterol Fumarate 160-4.5 MCG/ACT 2 puffs Inhalation BID Rinse after use Active ALPRAZolam 0.25 MG 1 tablet Orally daily prn 08/11/2024 Active amLODIPine Besylate 10 MG 1 tablet Orall y Once a day Active Social History Tobacco Use: Social History Observation Description Date Details (start date - stop date) Former Smoker NA - NA Tobacco Control (Standard) Question Answer Notes Tobacco use: Former smoker How long has it been since y ou last smoked? 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 hobbies: [employer], [employer]; [employer] Vital Signs Blood pressure systolic 134 mm Hg 01/26/20 25 Blood pressure diastolic 80 mm Hg 025 Heart Rate 82 /min 01/25/2025 Respiratory Rate 12 /min 01/25/2025 Height 67 in 01/25/2025 Weight 224 lbs 01/25/2025 BMI 35.08 kg/m2 01/25/2025 Encounters Encounter Location Date Provider Diagnosis Rheumatology [facility] [address] [facility] [address] [place] [address] 01/25/2025 Janet Wu Polyosteoarthritis, unspecified M15.9 ; 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 ; Vitamin D insufficiency E55.9 ; Rheumatoid arthritis, seropositive M05.9 ; Paresthesia R20.2 and Other hospital pharmacy technician (current) drug therapy Z79.899 Assessments Encounter Date Diagnosis (ICD Code) Assessment Notes Treatment Notes Treatment Clinical Notes Section Notes 01/25/2025 Polyosteoarthrit is, unspecified (ICD-10 - M15.9) Jimmie is a very pleasant 69yo white male, - Overall rheum impression= seropositive rheumatoid arthritis/SPRA, diagnosed , 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 - Current inflammatory disease activity= likely clinical remission to low disease at most; to (-)ESR/CRP - PLAN: -RA; status = STABLE --counseled on RA diagnosis, complications/comor bidities --PO steroids: restart prn low dose prednisone 10mg taper by 2.5mg weekly --specific DMARD options: increase SSZ, caution MTX due to ongoing lung issues and hx fatty liver, consider biologics --CONTINUE HCQ/plaquenil/hydro xychloroquine 200mg PO BID; Dorene valentine --last retinal screening= (see patient docs), next due --counseled on benefits (treat symptoms, mitigate risk of autoimmune disease worsening, decrease flares, possibly improve mortality, etc.) of HCQ therapy and of HCQ risk including but not limited to risk retinal toxicity (requiring routine retinal eye toxicity screening, typically q6-12mos but defer to certified breastfeeding educator expertise based upon patients risk factors and comorbidities), etc --cards, f/u to periodically check ECG for QT changes, apparently Hussain did ECG 2022 and told patient ok for HCQ --CONTINUE SSZ/sulfasalazine 1000mg PO BID (G6PD wnl so low risk decreased clearance, rx 2022, increased ) --counseled on risk/benefits, risks including but not limited to secretions turning orange/yellow, liver toxicity, cytopenias/bone marrow suppression, etc --UPDATE basic labs to eval for cytopenias, liver/renal function, ESR/CRP - -OA; status = SYMPTOMATIC --weight loss, low impact exercise --formal PT prn (neck) --trigger finger CSI prn but currently NOT reliable trigger in clinic --counseled [id number] to optimize tylenol extra strength prn >> PO NSAIDS --consider updating plain films bl feet to eval for inflammatory changes, he declined [id number] - -COPD; status = STABLE --pulm: f/u Samsa, monitor for ILD - -low vitamin d; status = STABLE --rx () vitamin d2 50k units PO weekly x12 weeks followed by otc vitamin d3 2k units PO daily otc -- vitamin d level wnl, check at least yearly - -UE paresthesias, ?CTS; status = STABLE --consider formal EMG/NCV studies --encouraged otc night time cockup braces to see if helps symptoms - RTC 4mos or sooner PRN (ok to f/u with PIPE FITTER AMMONIA and only physician if concerns and/or on IV therapy) - Medical decision making: level 4 multiple chronic conditions addressed medication toxicity monitoring (HCQ, SSZ, notable attention to CBC/liver/renal labs, and GI upset/ retinal toxicity) monitoring lab, clinical, imaging for autoimmune disease activity and end organ involvement 01/25/2025 Chronic bronchitis with COPD (chronic obstructive pulmonary disease) (ICD-10 - J44.9) Jimmie is a very pleasant 69yo white male, - Overall rheum impression= seropositive rheumatoid arthritis/SPRA, diagnosed , 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 - Current inflammatory disease activity= likely clinical remission to low disease at most; to (-)ESR/CRP - PLAN: -RA; status = STABLE --counseled on RA diagnosis, complications/comor bidities --PO steroids: restart prn low dose prednisone 10mg taper by 2.5mg weekly --specific DMARD options: increase SSZ, caution MTX due to ongoing lung issues and hx fatty liver, consider biologics --CONTINUE HCQ/plaquenil/hydro xychloroquine 200mg PO BID; Dorene valentine --last retinal screening= (see patient docs), next due --counseled on benefits (treat symptoms, mitigate risk of autoimmune disease worsening, decrease flares, possibly improve mortality, etc.) of HCQ therapy and of HCQ risk including but not limited to risk retinal toxicity (requiring routine retinal eye toxicity screening, typically q6-12mos but defer to certified breastfeeding educator expertise based upon patients risk factors and comorbidities), etc --cards, f/u to periodically check ECG for QT changes, apparently Hussain did ECG 2022 and told patient ok for HCQ --CONTINUE SSZ/sulfasalazine 1000mg PO BID (G6PD wnl so low risk decreased clearance, rx 2022, increased ) --counseled on risk/benefits, risks including but not limited to secretions turning orange/yellow, liver toxicity, cytopenias/bone marrow suppression, etc --UPDATE basic labs to eval for cytopenias, liver/renal function, ESR/CRP - -OA; status = SYMPTOMATIC --weight loss, low impact exercise --formal PT prn (neck) --trigger finger CSI prn but currently NOT reliable trigger in clinic --counseled [id number] to optimize tylenol extra strength prn >> PO NSAIDS --consider updating plain films bl feet to eval for inflammatory changes, he declined [id number] - -COPD; status = STABLE --pulm: f/u Samsa, monitor for ILD - -low vitamin d; status = STABLE --rx () vitamin d2 50k units PO weekly x12 weeks followed by otc vitamin d3 2k units PO daily otc -- vitamin d level wnl, check at least yearly - -UE paresthesias, ?CTS; status = STABLE --consider formal EMG/NCV studies --encouraged otc night time cockup braces to see if helps symptoms - RTC 4mos or sooner PRN (ok to f/u with PIPE FITTER AMMONIA and only physician if concerns and/or on IV therapy) - Medical decision making: level 4 multiple chronic conditions addressed medication toxicity monitoring (HCQ, SSZ, notable attention to CBC/liver/renal labs, and GI upset/ retinal toxicity) monitoring lab, clinical, imaging for autoimmune disease activity and end organ involvement 01/25/2025 Vitamin D insufficiency (ICD-10 - E55.9) Jimmie is a very pleasant 69yo white male, - Overall rheum impression= seropositive rheumatoid arthritis/SPRA, diagnosed , 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 - Current inflammatory disease activity= likely clinical remission to low disease at most; to (-)ESR/CRP - PLAN: -RA; status = STABLE --counseled on RA diagnosis, complications/comor bidities --PO steroids: restart prn low dose prednisone 10mg taper by 2.5mg weekly --specific DMARD options: increase SSZ, caution MTX due to ongoing lung issues and hx fatty liver, consider biologics --CONTINUE HCQ/plaquenil/hydro xychloroquine 200mg PO BID; Dorene valentine --last retinal screening= (see patient docs), next due --counseled on benefits (treat symptoms, mitigate risk of autoimmune disease worsening, decrease flares, possibly improve mortality, etc.) of HCQ therapy and of HCQ risk including but not limited to risk retinal toxicity (requiring routine retinal eye toxicity screening, typically q6-12mos but defer to certified breastfeeding educator expertise based upon patients risk factors and comorbidities), etc --cards, f/u to periodically check ECG for QT changes, apparently Hussain did ECG 2022 and told patient ok for HCQ --CONTINUE SSZ/sulfasalazine 1000mg PO BID (G6PD wnl so low risk decreased clearance, rx 2022, increased ) --counseled on risk/benefits, risks including but not limited to secretions turning orange/yellow, liver toxicity, cytopenias/bone marrow suppression, etc --UPDATE basic labs to eval for cytopenias, liver/renal function, ESR/CRP - -OA; status = SYMPTOMATIC --weight loss, low impact exercise --formal PT prn (neck) --trigger finger CSI prn but currently NOT reliable trigger in clinic --counseled [id number] to optimize tylenol extra strength prn >> PO NSAIDS --consider updating plain films bl feet to eval for inflammatory changes, he declined - -COPD; status = STABLE --pulm: f/u Samsa, monitor for ILD - -low vitamin d; status = STABLE --rx () vitamin d2 50k units PO weekly x12 weeks followed by otc vitamin d3 2k units PO daily otc -- vitamin d level wnl, check at least yearly - -UE paresthesias, ?CTS; status = STABLE --consider formal EMG/NCV studies --encouraged otc night time cockup braces to see if helps symptoms - RTC 4mos or sooner PRN (ok to f/u with PIPE FITTER AMMONIA and only physician if concerns and/or on IV therapy) - Medical decision making: level 4 multiple chronic conditions addressed medication toxicity monitoring (HCQ, SSZ, notable attention to CBC/liver/renal labs, and GI upset/ retinal toxicity) monitoring lab, clinical, imaging for autoimmune disease activity and end organ involvement 01/25/2025 Rheumatoid arthritis, seropositive (ICD-10 - M05.9) Jimmie is a very pleasant 69yo white male, - Overall rheum impression= seropositive rheumatoid arthritis/SPRA, diagnosed , 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 - Current inflammatory disease activity= likely clinical remission to low disease at most; to (-)ESR/CRP - PLAN: -RA; status = STABLE --counseled on RA diagnosis, complications/comor bidities --PO steroids: restart prn low dose prednisone 10mg taper by 2.5mg weekly --specific DMARD options: increase SSZ, caution MTX due to ongoing lung issues and hx fatty liver, consider biologics --CONTINUE HCQ/plaquenil/hydro xychloroquine 200mg PO BID; ophtho, Rudinoff --last retinal screening= (see patient docs), next due --counseled on benefits (treat symptoms, mitigate risk of autoimmune disease worsening, decrease flares, possibly improve mortality, etc.) of HCQ therapy and of HCQ risk including but not limited to risk retinal toxicity (requiring routine retinal eye toxicity screening, typically q6-12mos but defer to certified breastfeeding educator expertise based upon patients risk factors and comorbidities), etc --cards, f/u to periodically check ECG for QT changes, apparently Hussain did ECG 2022 and told patient ok for HCQ --CONTINUE SSZ/sulfasalazine 1000mg PO BID (G6PD wnl so low risk decreased clearance, rx 2022, increased ) --counseled on risk/benefits, risks including but not limited to secretions turning orange/yellow, liver toxicity, cytopenias/bone marrow suppression, etc --UPDATE basic labs to eval for cytopenias, liver/renal function, ESR/CRP - -OA; status = SYMPTOMATIC --weight loss, low impact exercise --formal PT prn (neck) --trigger finger CSI prn but currently NOT reliable trigger in clinic --counseled to optimize tylenol extra strength prn >> PO NSAIDS --consider updating plain films bl feet to eval for inflammatory changes, he declined - -COPD; status = STABLE --pulm: f/u Samsa, monitor for ILD - -low vitamin d; status = STABLE --rx () vitamin d2 50k units PO weekly x12 weeks followed by otc vitamin d3 2k units PO daily otc -- vitamin d level wnl, check at least yearly - -UE paresthesias, ?CTS; status = STABLE --consider formal EMG/NCV studies --encouraged otc night time cockup braces to see if helps symptoms - RTC 4mos or sooner PRN (ok to f/u with PIPE FITTER AMMONIA and only physician if concerns and/or on IV therapy) - Medical decision making: level 4 multiple chronic conditions addressed medication toxicity monitoring (HCQ, SSZ, notable attention to CBC/liver/renal labs, and GI upset/ retinal toxicity) monitoring lab, clinical, imaging for autoimmune disease activity and end organ involvement 01/25/2025 Paresthesia (ICD-10 - R20.2) Jimmie is a very pleasant 69yo white male, - Overall rheum impression= seropositive rheumatoid arthritis/SPRA, diagnosed , 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 - Current inflammatory disease activity= likely clinical remission to low disease at most; to (-)ESR/CRP - PLAN: -RA; status = STABLE --counseled on RA diagnosis, complications/comor bidities --PO steroids: restart prn low dose prednisone 10mg taper by 2.5mg weekly --specific DMARD options: increase SSZ, caution MTX due to ongoing lung issues and hx fatty liver, consider biologics --CONTINUE HCQ/plaquenil/hydro xychloroquine 200mg PO BID; Dorene valentine --last retinal screening= (see patient docs), next due --counseled on benefits (treat symptoms, mitigate risk of autoimmune disease worsening, decrease flares, possibly improve mortality, etc.) of HCQ therapy and of HCQ risk including but not limited to risk retinal toxicity (requiring routine retinal eye toxicity screening, typically q6-12mos but defer to certified breastfeeding educator expertise based upon patients risk factors and comorbidities), etc --cards, f/u to periodically check ECG for QT changes, apparently Hussain did ECG 2022 and told patient ok for HCQ --CONTINUE SSZ/sulfasalazine 1000mg PO BID (G6PD wnl so low risk decreased clearance, rx 2022, increased ) --counseled on risk/benefits, risks including but not limited to secretions turning orange/yellow, liver toxicity, cytopenias/bone marrow suppression, etc --UPDATE basic labs to eval for cytopenias, liver/renal function, ESR/CRP - -OA; status = SYMPTOMATIC --weight loss, low impact exercise --formal PT prn (neck) --trigger finger CSI prn but currently NOT reliable trigger in clinic --counseled [id number] to optimize tylenol extra strength prn >> PO NSAIDS --consider updating plain films bl feet to eval for inflammatory changes, he declined - -COPD; status = STABLE --pulm: f/u Samsa, monitor for ILD - -low vitamin d; status = STABLE --rx () vitamin d2 50k units PO weekly x12 weeks followed by otc vitamin d3 2k units PO daily otc -- vitamin d level wnl, check at least yearly - -UE paresthesias, ?CTS; status = STABLE --consider formal EMG/NCV studies --encouraged otc night time cockup braces to see if helps symptoms - RTC 4mos or sooner PRN (ok to f/u with PIPE FITTER AMMONIA and only physician if concerns and/or on IV therapy) - Medical decision making: level 4 multiple chronic conditions addressed medication toxicity monitoring (HCQ, SSZ, notable attention to CBC/liver/renal labs, and GI upset/ retinal toxicity) monitoring lab, clinical, imaging for autoimmune disease activity and end organ involvement 01/25/2025 Other prison (current) drug therapy (ICD-10 - Z79.899) Jimmie is a very pleasant 69yo white male, - Overall rheum impression= seropositive rheumatoid arthritis/SPRA, diagnosed , 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 - Current inflammatory disease activity= likely clinical remission to low disease at most; to (-)ESR/CRP - PLAN: -RA; status = STABLE --counseled on RA diagnosis, complications/comor bidities --PO steroids: restart prn low dose prednisone 10mg taper by 2.5mg weekly --specific DMARD options: increase SSZ, caution MTX due to ongoing lung issues and hx fatty liver, consider biologics --CONTINUE HCQ/plaquenil/hydro xychloroquine 200mg PO BID; Dorene valentine --last retinal screening= (see patient docs), next due --counseled on benefits (treat symptoms, mitigate risk of autoimmune disease worsening, decrease flares, possibly improve mortality, etc.) of HCQ therapy and of HCQ risk including but not limited to risk retinal toxicity (requiring routine retinal eye toxicity screening, typically q6-12mos but defer to certified breastfeeding educator expertise based upon patients risk factors and comorbidities), etc --cards, f/u to periodically check ECG for QT changes, apparently Hussain did ECG 2022 and told patient ok for HCQ --CONTINUE SSZ/sulfasalazine 1000mg PO BID (G6PD wnl so low risk decreased clearance, rx 2022, increased ) --counseled on risk/benefits, risks including but not limited to secretions turning orange/yellow, liver toxicity, cytopenias/bone marrow suppression, etc --UPDATE basic labs to eval for cytopenias, liver/renal function, ESR/CRP - -OA; status = SYMPTOMATIC --weight loss, low impact exercise --formal PT prn (neck) --trigger finger CSI prn but currently NOT reliable trigger in clinic --counseled [id number] to optimize tylenol extra strength prn >> PO NSAIDS --consider updating plain films bl feet to eval for inflammatory changes, he declined [id number] - -COPD; status = STABLE --pulm: f/u Samsa, monitor for ILD - -low vitamin d; status = STABLE --rx () vitamin d2 50k units PO weekly x12 weeks followed by otc vitamin d3 2k units PO daily otc -- vitamin d level wnl, check at least yearly - -UE paresthesias, ?CTS; status = STABLE --consider formal EMG/NCV studies --encouraged otc night time cockup braces to see if helps symptoms - RTC 4mos or sooner PRN (ok to f/u with PIPE FITTER AMMONIA and only physician if concerns and/or on IV therapy) - Medical decision making: level 4 multiple chronic conditions addressed medication toxicity monitoring (HCQ, SSZ, notable attention to CBC/liver/renal labs, and GI upset/ retinal toxicity) monitoring lab, clinical, imaging for autoimmune disease activity and end organ involvement Plan Of Treatment Medication Medication Name Sig Start Date Stop Date Notes sulfaSALAzine 500 MG TAKE 2 TABLETS BY M OUTH TWICE A DAY for 90 days Next Appt Details Follow Up: 4mos or sooner IN N (ok to f/u with PIPE FITTER AMMONIA and only physician if concerns and/or on IV therapy), Reason: Provider Name:Janet wood, 05/23/2025 11:00:00 AM, [address], [place], [address], Progress Notes * Jimmie ULLOADOB:1955 ([age] yo M)Acc No.[id number]:01/25/2025 Established Patient: Jmimie LAZO Provider: Nina Wu CNP :1955 A ge:69 Y S ex:Male Date:01/25/2025 Address:[id number] Pcp:Joe Navarrete Check In:10:30 AM ESTCheck O ut:12:29 PM EST Subjective: * Chief Complaints: * - 4 Month Follow Up- * HPI: G eneral: Jimmie is a very pleasant male, rheum hx RA/rheumatoid arthritis, OA/osteoarthritis TIMELINE pertinent history: -2021, PCP diagnosed inflammatory arthritis and due to RF, ref to rheum -, bl hands/wrists swollen, stiffness, responsive to steroids -Prior initial rheum Pumerantz encounter , 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 -Prior initial rheum impression=CTD/connective tissue disease, at this point at least undifferentiated, but likely RA with (+) moderate titer RF, elevated ESR/CRP, inflammatory polyarthritis RA distribution, acute and close to chronic, onset , so remains early on in diagnosis; multiple issues since , R eye pain, low Na, pulm infiltrates on CT, LE edema, cardiomegaly on CXR - to / (Kbsushilanina), rheum issues = SPRA, controlled fairly well on HCQ/SSZ INTERVAL EVENTS SINCE LAST RHEUM EVAL: -PCP/Navarrete eval TODAY , f/u rheum eval for uCTD evolved into RA, OA; reviewed relevant chart, labs, report, discussed with patient, significant for ([facility]) CT chest low dose screening ..see full report for more detail, tiny stable RUL pulm nodule, no developing nodularity (Rosalba), (-)vitamin d, malb/creat ratio, ALT/AST, SCr, CBC , (-)MTX panel, ESR/CRP main issue= eval for RA on nonbiologic DMARDs vs symptomatic OA. main complaint= (+)he states he is doing better now. he states last week, he had an episode of neck stiffness with difficult turning his head due to pain/stiffness. n o recent trauma/injury. no recent illness. he reports this is much improved. he had to take ibuprofen consistently which helped take the edge off. he states 'I don't feel too bad right now.' he continues on SSZ/HCQ without issues. otherwise, Joint pains: NONE currently, periodic bl hands, bl feet Joint swelling: (+)bl feet feel swollen, unchanged Hot/red joints: NONE Prolonged AM peripheral joint stiffness: NONE Joint deformities: NONE Trouble with ADLs/iADLs: NONE (+)R 2nd finger periodically triggers, stable PO steroids: NONE recent PO NSAIDs: ibuprofen prn, seldom Additional relevant/pertinent ROS: (+)fatigue, stable 2024; no fevers/chills/unint weight loss. CV/lung: (+)CLARKE on exertion, at times, stable , no current SOB or chest pain. no cough, though at times has cough. he is pending updated TTE per cards . GI: no black/bloody stools. neuro: (+)bl hand tingling, ongoing for years, intermittent, stable . CURRENT CTD/CONNECTIVE TISSUE DISEASE ADDITIONAL REVIEW: diagnostic criteria: uCTD SPRA Pertinent CTD labs: (+)RF, (-)JUICE, CCP, C3/4 Family hx CTD: (+)brother with RA (in [place]) SICCA: (+)dry mouth and dry eyes, stable . NO significant red/painful eyes, palpable LAD/swollen glands, malar butterfly rash, alopecia, photosensitivity, nose/oral/genital ulcers/sores, dysphagia, pleuropericarditis, raynauds, digital ischemia/ulcers/sores, skin thickening/tightening, severe weakness, SC nodules. Current DMARDs: (+)SSZ (rx ); HCQ (rx ) Prior DMARDs: N/A CURRENT FM/FIBROMYALGIA ADDITIONAL REVIEW: (last date scored ) Widespread pain index = 11, symptom severity score = 6 sleep issues, sleep medicine eval: (+)OMAYRA, on CPAP per pulm beh health issues, evals: (+)anxiety, reports stable exercise: minimal currently prior rheum (other providers relevant) directed IA/Cortisone/trigger injections/Soft tissue rheumatic injections: n/a Additional relevant/pertinent complications/comorbidities/fam hx: -DM -GERD -COPD, emphysema, lung infiltrates on CT chest -- (-)ANCA, APS labs --[place] pulm, S amsa -cardiomegaly on CXR --prior GXT and again --ECG 2022 --Hussain alicea, from [facility] goes down to [place] -COVID, admission -ER visit 2023 --09/24/23 seen in ED for HTN, stopped diclofenac -fatty liver -R eye pain --meme, Dorene Gaona --Yazmin previously spoke with Luanne valentine, on , with no evidence of ischemic neuropathy -atherosclerosis of aorta - PNA and PCP placed on ATB/steroid. * ROS: A ll Other Systems: Review of Systems (ROS) S ee HPI for details,all others negative except those mentioned in HPI. 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 Modified On:09/17/2023W/U Status:confirmed G47.33 OMAYRA (obstructive sle ep apnea) Modified On:10/02/2023W/U Status:confirmed Z87.891 History of tobacco a buse Modified On:09/17/2023 Status:confirmed I10 Essential (primary) hypertension Modified On:10/02/2023 Status:confirmed I70.0 Atherosclerosis of a los Modified On:11/21/2021 Status:confirmed K21.9 Gastro-esophageal re flux disease without esophagitis Modified On:12/24/2021 Status:confirmed F41.1 Generalized anxiety disorder Modified On:10/02/2023 Status:confirmed E78.1 Pure hyperglyceridem ia Modified On:11/21/2021 Status:confirmed E78.2 Mixed hyperlipidemia Modified On:07/21/2022 Status:confirmed J98.4 Other disorders of l mago Modified On:11/21/2021 Status:confirmed K76.0 Fatty (change of) li faiza, not elsewhere classified Modified On:11/21/2021 Status:confirmed J43.9 Pulmonary emphysema, unspecified emphysema type Modified On:12/26/2022 Status:confirmed E11.9 Type 2 diabetes valerie itus without complication, without long-term current use of insulin Modified On:05/17/2023 Status:confirmed M06.4 Inflammatory polyart hropathy Modified On:01/23/2023 Status:confirmed E11.65 Type 2 diabetes valerie itus with hyperglycemia, without long-term current use of insulin Modified On:10/15/2022 Status:confirmed E55.9 Vitamin D insufficie ncy Modified On:10/02/2023U Status:confirmed M05.9 Seropositive rheumat oid arthritis Modified On:10/04/2022 Status:confirmed M06.9 Rheumatoid arthritis involving multiple sites, unspecified whether rheumatoid factor present Modified On:12/26/2022 Status:confirmed E66.9 Obesity, unspecified Modified On:09/17/2023 Status:confirmed J44.9 Chronic obstructive pulmonary disease, unspecified Modified On:10/29/2022 Status:confirmed 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 Modified On:12/03/2023U Status:confirmed J30.2 Other seasonal aller gic rhinitis Modified On:09/17/2023 Status:confirmed J43.2 Centrilobular emphys saima Modified On:09/17/2023 Status:confirmed Z68.33 Body mass index [BMI ] 33.0-33.9, adult Modified On:10/02/2023 Status:confirmed M35.9 Connective tissue di sease, undifferentiated Modified On:01/23/2023U Status:confirmed M05.9 Rheumatoid arthritis , seropositive Modified On:08/13/2023 Status:confirmed J44.9 Chronic bronchitis w ith COPD (chronic obstructive pulmonary disease) Modified On:08/13/2023 Status:confirmed I10 Benign essential HTN Modified On:09/08/2023 Status:confirmed K21.9 GERD (gastroesophage al reflux disease) Modified On:09/08/2023 Status:confirmed R20.2 Paresthesia Modified On:08/13/2023 Status:confirmed E78.5 Dyslipidemia Modified On:10/02/2023U Status:confirmed M06.9 RA (rheumatoid arthr itis) Modified On:09/08/2023 Status:confirmed E66.09 Other obesity due to excess calories Modified On:10/02/2023 Status:confirmed E11.9 Type 2 diabetes valerie itus without complications Modified On:10/02/2023U Status:confirmed M06.9 Rheumatoid arthritis , unspecified Modified On:10/31/2023 Status:confirmed M15.9 Polyosteoarthritis, unspecified Modified On:12/12/2023 Status:confirmed J44.1 Chronic obstructive pulmonary disease with (acute) exacerbation Modified On:08/11/2024 Status:confirmed E66.01 Morbid (severe) obes ity due to excess calories Modified On:12/02/2024U Status:confirmed Z68.35 Body mass index [BMI ] 35.0-35.9, adult Modified On:12/02/2024 Status:confirmed * Medical History: * Surgical History: c olonoscopy +int hem - repeat in 10 years 12/04/2018 * Hospitalization/Major Diagno stic Procedure: C OPD Exacerbation 12/13/2022Covid-19 -TBH 04/24/2023Hypertension-TBH 09/24/2023 * Family History: F ather: , heart disease. M other: , COPD. B rother(s): HTN. S ister(s): , HTN. 1 brother(s) , 5 sister(s) . . 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 * Medications: T akingALPRAZolam 0.25 MG Tablet 1 tablet Orally daily prn amLODIPine Besylate 10 MG Tablet 1 tablet Orally Once a day Aspirin Atorvastatin Calcium 10 MG Tablet TAKE 1 TABLET BY MOUTH EVERY DAY Budesonide-Formoterol Fumarate 160-4.5 MCG/ACT Aerosol 2 puffs Inhalation BID Rinse after useDoxycycline Hyclate 100 MG Capsule 1 capsule Orally BID Hydroxychloroquine Sulfate 200 MG Tablet 1 tablet with food or milk Orally BID Ibuprofen , Notes to Pharmacist: PRNIpratropium-Albuterol 0.5-2.5 (3) MG/3ML Solution 3mL Inhalation QID Lisinopril 40 MG Tablet TAKE 1 TABLET BY MOUTH EVERY DAY Melatonin Metoprolol Tartrate 50 MG Tablet TAKE 1 AND 1/2 TABLET BY MOUTH TWICE DAILY FOR 90 DAYS Nystatin 776388 UNIT/ML Suspension 4 mL Mouth/Throat Four times a day swish and swallowPantoprazole Sodium 40 MG Tablet Delayed Release TAKE 1 TABLET BY MOUTH TWICE A DAY predniSONE 20 MG Tablet 3 tablets daily for 3 days then 2 tablets daily for 3 days then 1 tablet daily for 3 days Orally sulfaSALAzine 500 MG Tablet TAKE 2 TABLETS BY MOUTH TWICE A DAY Vitamin C Vitamin D 50 MCG (1999 UT) Capsule 1 capsule Orally Once a day Taking ALPRAZolam 0.25 MG Tablet 1 tablet Orally daily prn Taking amLODIPine Besylate 10 MG Tablet 1 tablet Orally Once a day Taking Aspirin Taking Atorvastatin Calcium 10 MG Tablet TAKE 1 TABLET BY MOUTH EVERY DAY Taking Budesonide-Formoterol Fumarate 160-4.5 MCG/ACT Aerosol 2 puffs Inhalation BID Rinse after useTaking Doxycycline Hyclate 100 MG Capsule 1 capsule Orally BID Taking Hydroxychloroquine Sulfate 200 MG Tablet 1 tablet with food or milk Orally BID Taking Ibuprofen , Notes to Pharmacist: PRNTaking Ipratropium-Albuterol 0.5-2.5 (3) MG/3ML Solution 3mL Inhalation QID Taking Lisinopril 40 MG Tablet TAKE 1 TABLET BY MOUTH EVERY DAY Taking Melatonin Taking Metoprolol Tartrate 50 MG Tablet TAKE 1 AND 1/2 TABLET BY MOUTH TWICE DAILY FOR 90 DAYS Taking Nystatin 936525 UNIT/ML Suspension 4 mL Mouth/Throat Four times a day swish and swallowTaking Pantoprazole Sodium 40 MG Tablet Delayed Release TAKE 1 TABLET BY MOUTH TWICE A DAY Taking predniSONE 20 MG Tablet 3 tablets daily for 3 days then 2 tablets daily for 3 days then 1 tablet daily for 3 days Orally Taking sulfaSALAzine 500 MG Tablet TAKE 2 TABLETS BY MOUTH TWICE A DAY Taking Vitamin C Taking Vitamin D 50 MCG (1999 UT) Capsule 1 capsule Orally Once a day Not-Taking/PRNAlbuterol Sulfate HFA 108 (90 Base) MCG/ACT Aerosol Solution 2 puffs as needed for SOB Inhalation every 4 hrs hydroCHLOROthiazide 12.5 MG Tablet 1 tablet in the morning Orally Once a day Medication List reviewed and reconciled with the patientNot-Taking/PRN Albuterol Sulfate HFA 108 (90 Base) MCG/ACT Aerosol Solution 2 puffs as needed for SOB Inhalation every 4 hrs Not-Taking/PRN hydroCHLOROthiazide 12.5 MG Tablet 1 tablet in the morning Orally Once a day Medication List reviewed and reconciled with the patient * Allergies: N .K.D.A.no[Allergies Verified] Objective: * Vitals: W t:224lbs, Ht: 67 in, BP:134/80mm Hg, HR:82/min, RR:12/min, BMI:35.08Index, Ht- cm: 170.18 cm, Wt-k.61 kg. * Examination: G eneral Examination: GENERAL APPEARANCE: w ell developed and well nourished, in no acute distress. HEENT: e yes are clear with normal EOM no oral/nasal ulcerations. NECK: T hyroid was not palpable. LUNGS: c lear to auscultation bilaterally. CARDIO: n ormal S1 and S2. No murmurs, gallops, or rub.? ABDOMEN: s oft and nontender. LYMPHATIC: n o lymphadenopathy. SKIN: n o concerning rash, no definitive cutaneous lupus, psoriasis rash no nail pitting. EXTREMITIES: n o clubbing, cyanosis (+)1+ pitting edema lower extremities. NEUROLOGIC: a lert and oriented x3, no focal neurologic findings. R heumatology: HANDS: n o tenderness to palpation no redness or warmth no synovitis no inflammatory joint deformities no reliable R 2nd finger triggering in clinic. WRISTS: n o tenderness to palpation, no bl redness/warmth/swelling/synovitis decreased L AROM. ELBOWS: n o swelling or tenderness with full range of motion. SHOULDERS: f ull range of motion without pain or irritability, no tenderness. HIPS: n o tenderness to palpation, ROM preserved. KNEES: f ull range of motion without effusion, tenderness, or instability. ANKLES: ( +)BL T RACE periarticular t enderness to palpation. FEET: n o MTP tenderness to palpation, no swelling but some toe fullness, no warmth or redness, no active synovitis, no active enthesitis, no inflammatory joint deformities, preserved ROM. CERVICAL SPINES: n o tenderness to palpation, grossly preserved ROM. THORACIC SPINE: n o tenderness to palpation, grossly preserved ROM. LUMBAR SPINES: n o tenderness to palpation, grossly preserved ROM. SACROILIAC: n o SI tenderness to palpation, p rior n o SI contralateral irritability with hip FABERs. S UMMARY salient labs: Apr25 (Navarrete), (-)vitamin d, malb/creat ratio, ALT/AST, SCr, CBC Mar25 (-)MTX panel, ESR/CRP Sep24 (+)MTX tox elevated WBC, (-)ESR/CRP, vitamin b12 Jun24 (-)MTX panel, vitamin d, ESR/CRP Apr24 (-) SCr Feb24 (-) MTX panel, ESR/CRP (+) MTX panel with H/H 13/39, ESR 71, CRP 2.5mg/dL (+)RF 26, low vitamin d, CRP 7.3, ESR 49, (-)JUICE, TSH, C3/4, uric acid, SPEP, MTX panel, APS labs, HLA-B27, G6PD, CH50 (not low), CCP, ANCA (see patient docs), (+) RF 43 (<14), ESR/CRP elevation, low TSH, low Na, (-) JUICE prebiologic screening: , (-)HBsAg, hep c ab, IGRA SUMMARY salient imaging/studies: ([facility]) CT chest low dose screening ..see full report for more detail, tiny stable RUL pulm nodule, no developing nodularity CT chest benign appearing nodules LE venous dopplers no evidence of DVT plain films bl hands/wrists/feet mild OA with no evidence for inflammatory/erosive changes, bl knees no chondral calcification, minimal narrowing medial compartments CT (see patient docs for full results) lung with pulm opacities right and left lung favoring infectious infiltrates, per report. Assessment: * Assessment: 1. R heumatoid arthritis, seropositive - M05.9 (Primary) 2 . P olyosteoarthritis, unspecified - M15.9 3 . C hronic bronchitis with COPD (chronic obstructive pulmonary disease) - J44.9 4 . V itamin D insufficiency - E55.9 5. P aresthesia - R20.2 6 . 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 - Z79.899 Jimmie is a very pleasant 69yo white male, - Overall rheum impression= seropositive rheumatoid arthritis/SPRA, diagnosed , 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 - Current inflammatory disease activity= likely clinical remission to low disease at most; to (-)ESR/CRP - PLAN: -RA; status = STABLE --counseled on RA diagnosis, complications/comorbidities --PO steroids: restart prn low dose prednisone 10mg taper by 2.5mg weekly --specific DMARD options: increase SSZ, caution MTX due to ongoing lung issues and hx fatty liver, consider biologics --CONTINUE HCQ/plaquenil/hydroxychloroquine 200mg PO BID; Dorene valentine --last retinal screening= (see patient docs), next due --counseled on benefits (treat symptoms, mitigate risk of autoimmune disease worsening, decrease flares, possibly improve mortality, etc.) of HCQ therapy and of HCQ risk including but not limited to risk retinal toxicity (requiring routine retinal eye toxicity screening, typically q6-12mos but defer to certified breastfeeding educator expertise based upon patients risk factors and comorbidities), etc --cards, f/u to periodically check ECG for QT changes, apparently Hussain did ECG 2022 and told patient ok for HCQ --CONTINUE SSZ/sulfasalazine 1000mg PO BID (G6PD wnl so low risk decreased clearance, rx 2022, increased ) --counseled on risk/benefits, risks including but not limited to secretions turning orange/yellow, liver toxicity, cytopenias/bone marrow suppression, etc --UPDATE basic labs to eval for cytopenias, liver/renal function, ESR/CRP - -OA; status = SYMPTOMATIC --weight loss, low impact exercise --formal PT prn (neck) --trigger finger CSI prn but currently NOT reliable trigger in clinic --counseled [id number] to optimize tylenol extra strength prn >> PO NSAIDS --consider updating plain films bl feet to eval for inflammatory changes, he declined - -COPD; status = STABLE --pulm: f/u Samsa, monitor for ILD - -low vitamin d; status = STABLE --rx () vitamin d2 50k units PO weekly x12 weeks followed by otc vitamin d3 2k units PO daily otc -- vitamin d level wnl, check at least yearly - -UE paresthesias, ?CTS; status = STABLE --consider formal EMG/NCV studies --encouraged otc night time cockup braces to see if helps symptoms - RTC 4mos or sooner PRN (ok to f/u with PIPE FITTER AMMONIA and only physician if concerns and/or on IV therapy) - Medical decision making: level 4 multiple chronic conditions addressed medication toxicity monitoring (HCQ, SSZ, notable attention to CBC/liver/renal labs, and GI upset/ retinal toxicity) monitoring lab, clinical, imaging for autoimmune disease activity and end organ involvement Plan: * Treatment: 2. P olyosteoarthritis, unspecified L AB: SED RATE and CRP (Collection Date & Time - 01/25/2025 11:55 AM) L AB: MTX PANEL (CBC, ALB,ALT, AST, ALK ,CREA w/GFR CKD-EPI)) (Collection Date & Time - 01/25/2025 11:55 AM) 3. C hronic bronchitis with COPD (chronic obstructive pulmonary disease) L AB: SED RATE and CRP (Collection Date & Time - 01/25/2025 11:55 AM) L AB: MTX PANEL (CBC, ALB,ALT, AST, ALK ,CREA w/GFR CKD-EPI)) (Collection Date & Time - 01/25/2025 11:55 AM) 4. V itamin D insufficiency L AB: SED RATE and CRP (Collection Date & Time - 01/25/2025 11:55 AM) L AB: MTX PANEL (CBC, ALB,ALT, AST, ALK ,CREA w/GFR CKD-EPI)) (Collection Date & Time - 01/25/2025 11:55 AM) 5. P aresthesia L AB: SED RATE and CRP (Collection Date & Time - 01/25/2025 11:55 AM) L AB: MTX PANEL (CBC, ALB,ALT, AST, ALK ,CREA w/GFR CKD-EPI)) (Collection Date & Time - 01/25/2025 11:55 AM) 6. O ther prison (current) drug therapy L AB: SED RATE and CRP (Collection Date & Time - 01/25/2025 11:55 AM) L AB: MTX PANEL (CBC, ALB,ALT, AST, ALK ,CREA w/GFR CKD-EPI)) (Collection Date & Time - 01/25/2025 11:55 AM) * Labs: * L ab: SED RATE and CRP (Collection Date & Time - 01/25/2025 11:55 AM) L ab: MTX PANEL (CBC, ALB,ALT, AST, ALK ,CREA w/GFR CKD-EPI)) (Collection Date & Time - 01/25/2025 11:55 AM) * Procedure Codes: * Preventive Medicine: Screenings/Counseling: B PR ACTION PLAN Above Normal BMI Follow-up D ietary management education, guidance, and counseling F ALL RISK SCREENING Fall Risk Assessment: N o falls in the past year * Follow Up: 4 mos or sooner PRN (ok to f/u with PIPE FITTER AMMONIA and only physician if concerns and/or on IV therapy) * * Sign off status: Completed Visit Status: C HK (Check Out) true * Provider: Nina Wu CNP Date: 0 01/25/2025 Generated for Laura brice/Thuy/eTcelinasmitting on: 0 02/09/2025 09:28 AM EDT History and Physical Notes * HPI (History of Present Illness) Category Sub-Category Detail Notes Category Not es General Jimmie is a very pleasant male, rheum hx RA/rheumatoid arthritis, OA/osteoarthritis TIMELINE pertinent history: -2021, PCP diagnosed inflammatory arthritis and due to RF, ref to rheum -, bl hands/wrists swollen, stiffness, responsive to steroids -Prior initial rheum Pumerantz encounter , 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 -Prior initial rheum impression=CTD/connective tissue disease, at this point at least undifferentiated, but likely RA with (+) moderate titer RF, elevated ESR/CRP, inflammatory polyarthritis RA distribution, acute and close to chronic, onset , so remains early on in diagnosis; multiple issues since , R eye pain, low Na, pulm infiltrates on CT, LE edema, cardiomegaly on CXR - to / (Jazmin), rheum issues = SPRA, controlled fairly well on HCQ/SSZ INTERVAL EVENTS SINCE LAST RHEUM EVAL: -PCP/Navarrete eval TODAY [id number], f/u rheum eval for uCTD evolved into RA, OA; reviewed relevant chart, labs, report, discussed with patient, significant for ([facility]) CT chest low dose screening ..see full report for more detail, tiny stable RUL pulm nodule, no developing nodularity Apr (Rosalba), (-)vitamin d, malb/creat ratio, ALT/AST, SCr, CBC , (-)MTX panel, ESR/CRP main issue= eval for RA on nonbiologic DMARDs vs symptomatic OA. main complaint= (+)he states he is doing better now. he states last week, he had an episode of neck stiffness with difficult turning his head due to pain/stiffness. no recent trauma/injury. no recent illness. he reports this is much improved. he had to take ibuprofen consistently which helped take the edge off. he states 'I don't feel too bad right now.' he continues on SSZ/HCQ without issues. otherwise, Joint pains: NONE currently, periodic bl hands, bl feet Joint swelling: (+)bl feet feel swollen, unchanged Hot/red joints: NONE Prolonged AM peripheral joint stiffness: NONE Joint deformities: NONE Trouble with ADLs/iADLs: NONE (+)R 2nd finger periodically triggers, stable PO steroids: NONE recent PO NSAIDs: ibuprofen prn, seldom Additional relevant/pertinent ROS: (+)fatigue, stable 2024; no fevers/chills/unint weight loss. CV/lung: (+)CLARKE on exertion, at times, stable , no current SOB or chest pain. no cough, though at times has cough. he is pending updated TTE per cards . GI: no black/bloody stools. neuro: (+)bl hand tingling, ongoing for years, intermittent, stable . CURRENT CTD/CONNECTIVE TISSUE DISEASE ADDITIONAL REVIEW: diagnostic criteria: uCTD--> SPRA Pertinent CTD labs: (+)RF, (-)JUICE, CCP, C3/4 Family hx CTD: (+)brother with RA (in [place]) SICCA: (+)dry mouth and dry eyes, stable . NO significant red/painful eyes, palpable LAD/swollen glands, malar butterfly rash, alopecia, photosensitivity, nose/oral/genital ulcers/sores, dysphagia, pleuropericarditis, raynauds, digital ischemia/ulcers/sores, skin thickening/tightening, severe weakness, SC nodules. Current DMARDs: (+)SSZ (rx ); HCQ (rx ) Prior DMARDs: N/A CURRENT FM/FIBROMYALGIA ADDITIONAL REVIEW: (last date scored ) Widespread pain index = 11, symptom severity score = 6 sleep issues, sleep medicine eval: (+)OMAYRA, on CPAP per pulm beh health issues, evals: (+)anxiety, reports stable exercise: minimal currently prior rheum (other providers relevant) directed IA/Cortisone/trigger injections/Soft tissue rheumatic injections: n/a Additional relevant/pertinent complications/comorbidities/fam hx: -DM -GERD -COPD, emphysema, lung infiltrates on CT chest -- (-)ANCA, APS labs --Irma pul, [facility] -cardiomegaly on CXR --prior GXT and again --ECG 2022 --Hussain alicea, from [facility] goes down to [place] [facility], admission -ER visit 2023 --09/24/23 seen in ED for HTN, stopped diclofenac -fatty liver -R eye pain --ophtho, Dorene Gaona --Yazmin previously spoke with Luanne valentine, on , with no evidence of ischemic neuropathy -atherosclerosis of aorta - PNA and PCP placed on ATB/steroid Examination Category Sub-Category Detail Notes Category Not es Rheumatology CERVICAL SPINES: no tenderness t o palpation, grossly preserved ROM SUMMARY salient labs: Apr25 (Navarrete), (-)vitamin d, malb/creat ratio, ALT/AST, SCr, CBC (-)MTX panel, ESR/CRP (+)MTX tox elevated WBC, (-)ESR/CRP, vitamin b12 (-)MTX panel, vitamin d, ESR/CRP (-) SCr Feb24 (-) MTX panel, ESR/CRP (+) MTX panel with H/H 13/39, ESR 71, CRP 2.5mg/dL (+)RF 26, low vitamin d, CRP 7.3, ESR 49, (-)JUICE, TSH, C3/4, uric acid, SPEP, MTX panel, APS labs, HLA-B27, G6PD, CH50 (not low), CCP, ANCA (see patient docs), (+) RF 43 (<14), ESR/CRP elevation, low TSH, low Na, (-) JUICE prebiologic screening: , (-)HBsAg, hep c ab, IGRA SUMMARY salient imaging/studies: ([facility]) CT chest low dose screening ..see full report for more detail, tiny stable RUL pulm nodule, no developing nodularity CT chest benign appearing nodules LE venous dopplers no evidence of DVT plain films bl hands/wrists/feet mild OA with no evidence for inflammatory/erosive changes, bl knees no chondral calcification, minimal narrowing medial compartments CT (see patient docs for full results) lung with pulm opacities right and left lung favoring infectious infiltrates, per report LUMBAR SPINES: no tenderness to pal pation, grossly preserved ROM SHOULDERS: full range of motion without pain or irritability, no tenderness ELBOWS: no swelling or tende rness with full range of motion WRISTS: no tenderness to pal pation,no bl redness/warmth/swelling/synovitisdecreased L AROM HANDS: no tenderness to pal pationno redness or warmthno synovitisno inflammatory joint deformitiesno reliable R 2nd finger triggering in clinic HIPS: no tenderness to pal pation, ROM preserved KNEES: full range of motion without effusion, tenderness, or instability ANKLES: (+)BL?TRACE periarti cular?tenderness to palpation FEET: no MTP tenderness to palpation,no swelling but some toe fullness, no warmth or redness,no active synovitis,no active enthesitis, no inflammatory joint deformities, preserved ROM THORACIC SPINE: no tenderness to pal pation, grossly preserved ROM SACROILIAC: no SI tenderness to palpation, prior no SI contralateral irritability with hip FABERs General Examination GENERAL APPEARANCE: well dev eloped and well nourished, in no acute distress NECK: Thyroid was not palp able CARDIO: normal S1 and S2. No murmurs, gallops, or rub LUNGS: clear to auscultatio n bilaterally ABDOMEN: soft and nontender NEUROLOGIC: alert and oriented x 3, no focal neurologic findings SKIN: no concerning rash, no definitive cutaneous lupus, psoriasis rashno nail pitting EXTREMITIES: no clubbing, cyanosi s(+)1+ pitting edema lower extremities PERIPHERAL PULSES: HEENT: eyes are clear with normal EOMno oral/nasal ulcerations LYMPHATIC: no lymphadenopathy
--- OUTSIDE RECORDS SUMMARY | 2025-01-25 07:50 | XMS_ITS ---
Author Organization [facility] in [place] Address [address] [place] [address] Care Team Providers Care Mark Up Designer Name Role Phone Joe Navarrete Primary Care Provider Provider, Lab Unavailable [phone] REASON FOR VISIT CH Encounters Encounter Location Date Provider Diagnosis [facility] [address] [place] [address] 01/25/2025 Lab Provider Plan Of Treatment Next Appt Details Provider Name:Janet wood, 05/23/2025 11:00:00 AM, [address], [address], [place], [address], Progress Notes * Jimmie ULLOADOB:1955 ([age] yo M)Acc No.[id number]:01/25/2025 UNLOCKED PROGRESS NOTE Progress Note Patient: Jimmie LAZO Provider: Melissa barrera Provider :1955 A ge:69 Y S ex:Male Date:01/25/2025 Address:[address] , [id number] Pcp:Joe Navarrete Check In:11:52 AM ESTCheck O ut:11:54 AM EST Subjective: * Chief Complaints: * 1 . CH. * Medical History: Objective: * Vitals: Assessment: Plan: * Treatment: * * Electronic signature of Lab Provider on 02/09/2025 at 09:29 AM EDT Sign off status: Pending Visit Status: Trina HORNER (Check Out) * Provider: Melissa barrera Provider Date: 0 01/25/2025 Generated for Laura brice/Thuy/Shelley on: 02/09/2025 09:29 AM EDT
--- OUTSIDE RECORDS SUMMARY | 2025-02-02 06:00 | XMS_ITS ---
Author Organization [facility] in [place] Address [address] [place] [address] Care Team Providers Care Migratory Worker Name Role Phone Joe Navarrete Primary Care Provider Luis Granado Unavailable [phone] REASON FOR VISIT 2m F/U - COPD Encounters Encounter Location Date Provider Diagnosis Pulmonary Medicine [address] [address] 02/02/2025 Luis Granado Plan Of Treatment Next Appt Details Provider Name:Janet Quilessushila wood, 05/23/2025 11:00:00 AM, [address], [place], [address], Progress Notes * Jimmie ROTHDOB:1955 ([age] yo M)Acc No.[id number]:02/02/2025 UNLOCKED PROGRESS NOTE Follow Up Patient: Jimmie LAZO Provider: Jonnathan Granado DO :1955 A ge:69 Y S ex:Male Date:02/02/2025 Address:[address] [place], [id number] Pcp:Joe Navarrete Subjective: * Chief Complaints: * 1 . 2m F/U - COPD. * Medical History: Objective: * Vitals: Assessment: Plan: * Treatment: * * Electronic signature of Praveena Granado DO on 02/09/2025 at 09:29 AM EDT Sign off status: Pending Visit Status: C ANC (Cancelled) * Provider: Jonnathan Granado, Date: 0 02/02/2025 Generated for Laura brice/Thuy/Shelley on: 02/09/2025 09:29 AM EDT
--- OUTSIDE RECORDS SUMMARY | 2025-02-09 09:29 | XMS_ITS | Patient Health Record ---
Author Organization [facility] in [place] Address [address] [place] [address] Care Team Providers Care Poultry Sexer Name Role Phone NavarreteJoe savage Primary Care Provider Provider, Lab Unavailable [phone] Janet Wu Unavailable [phone] Darin Aiken Unavailable [phone] Allergies No Known Allergies Results Component Value Reference Range Notes HEMOGLOBIN A1C (GLYCO) (Not yet reviewed by provider) Interpretation: Performing Lab: Notes/Report: GLU-AV 126 GLYCO A1C 6.0 CBC WITH DIFF (Not yet revie wed by provider) Interpretation: Performing Lab: Notes/Report: WBC 6.9 RBC 4.91 HGB 15.9 MCV 94.9 HCT 46.6 MCH 32.4 MCHC 34.1 RDW 12.9 PLT 198 VITAMIN D, 25 LEVEL (TOTAL) (Not yet reviewed by provider) Interpretation: Performing Lab: Notes/Report: VIT D-25, TOT 58.9 CMP (COMP MET [place]) w/eGFR CK D-EPI (Not yet reviewed by provider) Interpretation: Performing Lab: Notes/Report: GLUCOSE (FBS) 127 BUN (UREA NTORGEN) 11.0 CREATININE 0.90 GFR CKD >60 SODIUM (NA) 141 POTASSIUM (K) 4.5 CHLORIDE (CL) 100 CARBON DIOXIDE 33.9 CALCIUM 9.1 ALBUMIN, BLOOD 3.7 PROTEIN, TOTAL (TP) 6.9 ALKALINE PHOSPHATE (ALP) 63 ALT (SGPT) 24 AST (SGOT) 24 BILIRUBIN, TOTAL 0.7 BUN/CREATININE RATIO 12.2 PSA, TOTAL Reviewed date:11/24/2024 11:54:53 AM Interpretation: Performing Lab: Notes/Report: PSA 0.88 SED RATE and CRP Reviewed date:01/25/2025 06:11:14 PM Interpretation: Performing Lab:[facility], [address] [place], [address] Notes/Report: [facility] FACILITY: [facility] [id number] SED RATE WEST. 30 (0 - 24) MM/HR CRP EXTENDED RANGE 3.78 (0.00 - 5.00) MG/L MTX PANEL (CBC, ALB,ALT, AST , ALK ,CREA w/GFR CKD-EPI)) Reviewed date:01/25/2025 06:11:19 PM Interpretation: Performing Lab:[facility], [address] [place], [address] Notes/Report: [facility] FACILITY: [facility] [id number] WBC 8.04 (3.80 - 10.60) x10^3ul HEMOGLOBIN [...] fl PLT 280 (130 - 400) x10^3ul CT lung screening low-dose Reviewed date:01/03/2025 10:53:32 AM Interpretation: Performing Lab: Notes/Report: Source Facility: [place] [address] [address] [address] Scan Report Signed Patient: BIPIN ULLOA MR#: [id number] : 1955 Acct:[id number] Age/Sex: 69 / M ADM Date: 01/03/25 Loc: CT Attending Dr: Darin Aiken D.O. Ordering Physician: Darin Aiken D.O. Date of Service: 01/03/25 Procedure(s): CT lung screening low-dose Accession Number(s): [id number] cc: JOE NAVARRETE D.O. [place] [address] Patient Name: BIPIN ULLOA MRN: [id number] date: 1955 Sex: M Assigned Patient Location: CT Current Patient Location: CT Accession/Order Number: [id number] Exam Date: 01/03/2025 10:24 Report Date: 01/03/2025 10:34 At the request of: DARIN AIKEN DO Procedure: CT lung screening low-dose LOW-DOSE SCREENING CHEST CT WITHOUT CONTRAST COMPARISON: 11/21/2023 CLINICAL DATA: Former smoker for approximately 45 years. Spiral axial unenhanced low-dose images were obtained through the chest. Images were reviewed using both narrow and wide window settings. This CT exam was performed using one or more following dose reduction techniques: Automated exposure control, adjustment of the mA and/or kV according to patient size, or use of iterative reconstruction technique. The heart is normal in size. No pericardial effusion is present. There is coronary artery disease. No aortic aneurysm is identified. There is minor plaque at the aortic arch, descending aorta and proximal great vessels. There are tiny nonpathologic mediastinal lymph nodes. Slight dextroscoliotic curvature and mild endplate spurring are seen at the spine. Calcified pleural plaque is again noted on the left. Left apical scarring is again seen. There is continued atelectasis and/or scarring at the right base adjacent to an elevated hemidiaphragm. Minimal linear scarring is visualized at the left lower lobe. There is no new consolidation, pleural effusion or pneumothorax. A stable 3 - 4 mm nodule is present at the right upper lobe (axial image 40). There is no developing adenopathy. Limited imaging through the upper abdomen shows a potential right upper pole renal cyst. CT/CT lung screening low-dose IMPRESSION: CHRONIC ELEVATION OF THE RIGHT HEMIDIAPHRAGM WITH ADJACENT ATELECTASIS AND/OR SCARRING. LEFT-SIDED CALCIFIED PLEURAL PLAQUE. TINY STABLE RIGHT UPPER LOBE PULMONARY NODULE. NO DEVELOPING NODULARITY. Lung RADS category 2 - benign Twelve-month low-dose CT follow-up suggested.. Impression dictated by: Ml Garvin M.D. 01/03/2025 10:34 AM Dictation Location: [place] [address] Electronically authenticated by: [id number] Y Date: 01/03/2025 10:34 Dictated By: Ml Garvin M.D. Signed By: 01/03/25 1037 DD/ 1034 TD/TT: Director Digital Sales: [place] [address] CT Scan Report Signed Patient: BIPIN ULLOA MR#: [id number] : 1955 Acct:[id number] Age/Sex: 69 / M ADM Date: 01/03/25 Loc: CT Attending Dr: Darin Aiken D.O. Ordering Physician: Darin Aiken D.O. Date of Service: 01/03/25 Procedure(s): CT jihan g screening low-dose Accession Number(s): [id number] cc: JOE NAVARRETE D.O. [address] [address] Patient Name: BIPIN ULLOA MRN: [id number] date: 1955 Sex: M Assigned Patient Loc ation: CT Current Patient Location: CT Accession/Order Numb er: [id number] Exam Date: 01/03/2025 10:24 Report Date: 01/03/2025 10:34 At the request of: DARIN AIKEN DO Procedure: CT lung s creening low-dose LOW-DOSE SCREENING C HEST CT WITHOUT CONTRAST COMPARISON: 11/21/2023 CLINICAL DATA: Forme r smoker for approximately 45 years. Spiral axial unenhan sara low-dose images were obtained through the chest. Images were reviewed using both narrow and wide window settings. This CT exam was performed using one or more following dose reduction techniques: Automated exposure control, ad justment of the mA and/or kV according to patient size, or use of iterative reconstruction technique. The heart is normal in size. No pericardial effusion is present. There is coronary artery disease. No aortic aneurysm i s identified. There is minor plaque at the aortic arch, descending aorta and proximal great vessels. There are tiny nonpathologic mediastinal lymph no lalitha. Slight dextroscoliotic curvature and mild endplate spurring are seen at the spine. Calcified pleural pl aque is again noted on the left. Left apical scarring is again seen. There is continued atelectasis and/or scarring at the right base adjacent to an eleva johnathan hemidiaphragm. Minimal linear scarring is visualized at the left lower lo be. There is no new consolidation, pleural effusion or pneumothorax. A stab le 3 - 4 mm nodule is present at the right upper lobe (axial image 40). Th ere is no developing adenopathy. Limited imaging thro ugh the upper abdomen shows a potential right upper pole renal cyst. C T/CT lung screening low-dose IMPRESSION: CHRONIC ELEVATION OF THE RIGHT HEMIDIAPHRAGM WITH ADJACENT ATELECTASIS AND/OR SCARRING. LEFT-SIDED CALCIFIED PLEURAL PLAQUE. TINY STABLE RIGHT UP PER LOBE PULMONARY NODULE. NO DEVELOPING NODULARITY. Lung RADS category 2 - benign Twelve-month low-dos e CT follow-up suggested.. Impression dictated by: Ml Garvin M.D. 01/03/2025 10:34 AM Dictation Location: [place] [address] Electronically auth nticated by: [id number] Y Date: 01/03/2025 10:34 Dictated By: Ml Garvin M.D. Signed By: 01/03/25 1037 DD/ 1034 TD/TT: Director Digital Sales: XR Chest PA and Lateral (Rou jolynn CXR) * (Not yet reviewed by provider) Interpretation: Performing Lab: Notes/Report: HEMOGLOBIN A1C - IN OFFICE Reviewed date:12/02/2024 09:35:40 PM Interpretation:6.2 Performing Lab: Notes/Report: 6.2 HEMOGLOBIN A1C - IN OFFICE 6.2 4.4 - 6.4 CT Chest Low Dose for Screen ing* Reviewed date:01/03/2025 11:16:32 AM Interpretation: Performing Lab: Notes/Report: MTX PANEL (CBC, ALB,ALT, AST , ALK ,CREA w/GFR CKD-EPI)) Reviewed date:09/26/2024 11:39:04 AM Interpretation: Performing Lab:[facility], [address] [place], [address] [phone] Notes/Report: FACILITY: [facility] [id number] WBC 8.28 (3.80 - 10.60) x10^3ul HEMOGLOBIN 15.8 (14.0 - 18.0) G/DL HEMATOCRIT 46.4 (42.0 - 52.0) % MCH 31.5 (27.0 - 33.0) PG MCHC 34.1 (30.0 - 37.0) G/DL ALBUMIN 4.5 (3.5 - 5.0) G/DL ALT (SGPT) 24 (1 - 45) U/L AST (SGOT) 30 (15 - 46) U/L ALK PHOS 64 (38 - 126) U/L CREATININE, BLOOD 0.66 (0.66 - 1.25) MG/DL GFR by CKD-EPI 102.2 (60.0) ML/M1.7 RBC 5.02 (4.70 - 6.10) x10^6ul MCV 92.4 (80.0 - 94.0) fl PLT 233 (130 - 400) x10^3ul SED RATE and CRP Reviewed date:09/26/2024 11:39:08 AM Interpretation: Performing Lab:[facility], [address] [place], [address] Notes/Report: FACILITY: [facility] [id number] SED RATE WEST. 12 (0 - 24) MM/HR CRP EXTENDED RANGE 2.42 (0.00 - 5.00) MG/L MICROALBUMIN with ALB/CREAT RATIO, URINE (MALB)) (Not yet reviewed by provider) Interpretation: Performing Lab: Notes/Report: CREAT, UR 137.94 MICROALBUMIN <1.3 LIPID PANEL (CHOL/TRIG/HDL/L DL) (Not yet reviewed by provider) Interpretation: Performing Lab: Notes/Report: CHOLESTEROL 143 120 - 200 MG/DL TRIGLYCERIDES 52 30 - 150 MG/DL HDL (DIRECT) 72 40 - 60 MG/DL LDL (CALC) 61.0 0 - 130 MG/DL VLDL (CALC) 10.4 7 - 46 MG/DL CHOL-HDL RATIO 2.0 0.0 - 5.0 VITAMIN B12 LEVEL AND FOLATE (FOLIC ACID) Reviewed date:03/25/2024 08:18:38 PM Interpretation: Performing Lab:[facility], [address] [place], [address] Notes/Report: FACILITY: [facility] [id number] VITAMIN B-12 329 (239 - 931) PG/ML FOLIC ACID 5.6 (2.8 - 20.0) NG/ML SED RATE and CRP Reviewed date:03/25/2024 08:17:48 PM Interpretation: Performing Lab:[facility], [address] [place], [address] Notes/Report: FACILITY: [facility] [id number] SED RATE WEST. 5 (0 - 24) MM/HR CRP EXTENDED RANGE 1.17 (0.00 - 3.20) MG/L MTX PANEL (CBC, ALB,ALT, AST , ALK and CREA) Reviewed date:03/25/2024 08:18:26 PM Interpretation: Performing Lab:[facility], [facility] [place], [address] [phone] Notes/Report: FACILITY: [facility] [id number] WBC 11.32 (3.80 - 10.60) x10^3ul RBC 4.92 (4.70 - 6.10) x10^6ul HEMOGLOBIN 15.4 (14.0 - 18.0) G/DL HEMATOCRIT 46.9 (42.0 - 52.0) % MCV 95.3 (80.0 - 94.0) fl MCH 31.3 (27.0 - 33.0) PG MCHC 32.8 (30.0 - 37.0) G/DL PLT 248 (130 - 400) x10^3ul ALBUMIN 4.4 (3.5 - 5.0) G/DL ALT (SGPT) 27 (1 - 45) U/L AST (SGOT) 31 (15 - 46) U/L ALK PHOS 76 (38 - 126) U/L CREATININE, BLOOD 0.78 (0.66 - 1.25) MG/DL GFR-NON AFRIC-AMER 99.0 (60.0 - 133.8) ML/M1.7 GFR- AMER 119.8 (60.0 - 161.8) ML/M1.7 Reason For Referral No Information Medications Medication SIG (Take, Route, Frequency, Duration) Notes Start Date End Date Status Vitamin D 50 MCG (1999) 1 capsule Ora lly Once a day Active Albuterol Sulfate HFA 108 (9 0 Base) MCG/ACT 2 puffs as needed for SOB Inhalation every 4 hrs for 90 days 12/01/2024 Not-Taking Pantoprazole Sodium 40 MG TAKE 1 TABLET BY MOUTH TWICE A DAY for 90 Active predniSONE 20 MG 3 tablets daily for 3 days then 2 tablets daily for 3 days then 1 tablet daily for 3 days Orally for 9 days 08/11/2024 Active Vitamin C Active sulfaSALAzine 500 MG TAKE 2 TABLETS BY MOUTH TWICE A DAY for 90 days Active Aspirin Active Atorvastatin Calcium 10 MG TAKE 1 TABLET BY MOUTH EVERY DAY for 90 Active Budesonide-Formoterol Fumarate 160-4.5 MCG/ACT 2 puffs Inhalation BID Rinse after use Active Doxycycline Hyclate 100 MG 1 capsule Ora lly BID for 7 days 12/15/2024 Active ALPRAZolam 0.25 MG 1 tablet Orally daily prn 08/11/2024 Active amLODIPine Besylate 10 MG 1 tablet Orall y Once a day Active Lisinopril 40 MG TAKE 1 TABLET BY MOUTH EVERY DAY for 90 Active Melatonin Active Metoprolol Tartrate 50 MG TAKE 1 AND 1/2 TABLET BY MOUTH TWICE DAILY FOR 90 DAYS Active Nystatin 774194 UNIT/ML 4 mL Mouth/Throat Four times a day for 30 days swish and swallow 12/02/2024 Active hydroCHLOROthiazide 12.5 MG 1 tablet in the morning Orally Once a day 10/01/2023 Not-Taking Hydroxychloroquine Sulfate 200 MG 1 tablet with food or milk Orally BID Active Ibuprofen PRN Active Ipratropium-Albuterol 0.5-2. 5 (3) MG/3ML 3mL Inhalation QID Active Immunizations Vaccine Route Administration Date Status Comme nts Arexvy Unknown 05/21/2023 Administered Flu, Fluad (4426-1193) (99201) 65 yrs+, single-dose syringe IM Intramuscular 05/08/2023 Administered Flu, Fluzone High-Dose (11906) 65 yrs+ (9420-9285) Unknown 05/01/2021 Administered Pneumococcal (Prevnar 13) Unknown 11/26/2019 Administer ed Pneumococcal (Prevnar 20) Unknown 05/21/2023 Administer ed SARS-COV-2 (COVID 19 Pfizer 30mcg/0.3mL) Unknown 06/02/2021 Administered Social History Tobacco Use: Social History Observation Description Date Details (start date - stop date) Former Smoker NA - NA Tobacco Control (Standard) Question Answer Notes Tobacco use: Former smoker How long has it been since y ou last smoked? 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 alcohol: 2drinks typically, few times/week; prior heavier drinker , 4 step children, 5 step grandchildren prior [place] , E2, [employer]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, 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, 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 alcohol: 2drinks typically, few times/week; prior heavier drinker , 4 step children, 5 step grandchildren prior [place] , E2, [employer]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, 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, 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 alcohol: 2drinks typically, few times/week; prior heavier drinker , 4 step children, 5 step grandchildren prior [place] , E2, [employer]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, 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, 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 alcohol: 2drinks typically, few times/week; prior heavier drinker , 4 step children, 5 step grandchildren prior [place] , E2, 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, 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, 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 alcohol: 2drinks typically, few times/week; prior heavier drinker , 4 step children, 5 step grandchildren prior [place] , E2, 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, 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, 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 alcohol: 2drinks typically, few times/week; prior heavier drinker , 4 step children, 5 step grandchildren prior [place] , E2, 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, 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, 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 alcohol: 2drinks typically, few times/week; prior heavier drinker , 4 step children, 5 step grandchildren prior [place] , E2, 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, 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, 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 alcohol: 2drinks typically, few times/week; prior heavier drinker , 4 step children, 5 step grandchildren prior [place] , E2, 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, 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 alcohol: 2drinks typically, few times/week; prior heavier drinker , 4 step children, 5 step grandchildren prior [place] , E2, 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, 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 alcohol: 2drinks typically, few times/week; prior heavier drinker , 4 step children, 5 step grandchildren prior [place] , E2, 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, 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 alcohol: 2drinks typically, few times/week; prior heavier drinker , 4 step children, 5 step grandchildren prior [place] , E2, 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, 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 alcohol: 2drinks typically, few times/week; prior heavier drinker , 4 step children, 5 step grandchildren prior [place] , E2, 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, 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 alcohol: 2drinks typically, few times/week; prior heavier drinker , 4 step children, 5 step grandchildren prior [place] , E2, [employer]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, 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 = [employer] 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 alcohol: 2drinks typically, few times/week; prior heavier drinker , 4 step children, 5 step grandchildren prior [place] , E2, 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, 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 = [employer]; [place] [employer] [place] [employer] 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 alcohol: 2drinks typically, few times/week; prior heavier drinker , 4 step children, 5 step grandchildren prior [place] , E2, [employer]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, 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 = [employer]; [place] [employer] 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 alcohol: 2 drinks typically, few times/week; prior heavier drinker , 4 step children, 5 step grandchildren prior [place] , E2, [employer]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, 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: [employer]; [employer] 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 alcohol: 2 drinks typically, few times/week; prior heavier drinker , 4 step children, 5 step grandchildren prior [place] , E2, [employer]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, 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: [employer]; [employer]@ [employer] online 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 alcohol: 2 drinks typically, few times/week; prior heavier drinker , 4 step children, 5 step grandchildren prior [place] , E2, [employer]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, 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: [employer]; [employer] 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 alcohol: 2 drinks typically, few times/week; prior heavier drinker , 4 step children, 5 step grandchildren prior [place] , E2, [employer]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, 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: [employer]; [place] [employer] Problems Problem Type SNOMED Code ICD Code Onset Dates Problem Status W/U Status Risk Notes Problem 84920827 Essential (primary) hypertension (I10) Active confirmed continue lisinopril 40mg daily and norvasc 5mg daily continue metoprolol 50mg 1.5 po bid BP check daily goal less [id number] diet/exerci se rtc 3 months monitor bmp Problem 476939513 Type 2 diabetes mellitus without complications (E11.9) Active confirmed Problem 846926380 Gastro-esophagea l reflux disease without esophagitis (K21.9) Active confirmed diet monitor increase protonix 40mg bid - erx done rtc if s/s worsen Problem 57836287 Chronic obstructive pulmonary disease, unspecified (J44.9) Active confirmed Problem 77841974313741 Morbid (severe) obesity due to excess calories (E66.01) Active confirmed Problem 524083882 Other obesity du e to excess calories (E66.09) Active confirmed Problem 112046060896097 Obesity, unspecified (E66.9) Active confirmed Problem 122709857 Pure hyperglyceridemia (E78.1) Active confirmed start lipitor 10mg daily - erx done monitor labs diet/exerci se LDL goal less [id number] Problem 734653671 Mixed hyperlipidemia (E78.2) Active confirmed From 02-07-2021 visit: diet/exerci se rec labs yearly LDL goal less layn367 - prob less than70 rec statin due to DM Problem 39345168 Generalized anxiety disorder (F41.1) Active confirmed monitor continue xanax 0.25mg daily prn - erx done rtc yearly rtc if worsens oarrs ok Problem 02102640 Atherosclerosis of aorta (I70.0) Active confirmed rec BP/BS control - see above rec weight loss continue lipitor 10mg daily f/u cardio as directed Problem 466400463 Other seasonal allergic rhinitis (J30.2) Active confirmed Problem 17893348 Centrilobular emphysema (J43.2) Active confirmed Prior treatment: Symbicort 160 + Spiriva > Breztri > Symbicort 160 > Trelegy Problem 027034011 Chronic obstructive pulmonary disease with (acute) exacerbation (J44.1) Active confirmed Problem 26245996 Other disorders of lung (J98.4) Active confirmed see above rec pulm for eval Problem 666360660 Fatty (change of ) liver, not elsewhere classified (K76.0) Active confirmed rec weigh t loss and LFT monitoring yearly Problem 956602579 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) Active confirmed Problem 44693202 Rheumatoid arthritis, unspecified (M06.9) Active confirmed Problem 609972848 Polyosteoarthrit is , unspecified (M15.9) Active confirmed Problem 24151828 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 confirmed Problem Long-term current use of inhaled steroid (552201622) long term care social worker (current) use of inhaled steroids (Z79.51) Active confirmed Problem Gastroesophageal reflux disease (021359068) GERD (gastroesophageal reflux disease) (K21.9) Active confirmed Problem Dyslipidemia (866195837) Dyslipidemia (E78.5) Active confirmed Problem Essential hypertension (10476781) Benign essential HTN (I10) Active confirmed Problem Obstructive sleep apnea syndrome (59705572) OMAYRA (obstructive sleep apnea) (G47.33) Active confirmed Symbicort > Trelegy > Wixela Problem Rheumatoid arthritis (04170500) RA (rheumatoid arthritis) (M06.9) Active confirmed Problem 94628125 Pulmonary emphysema, unspecified emphysema type (J43.9) Active confirmed Problem Paresthesia (13109706) Paresthesia (R20.2) Active confirmed Problem Vitamin D deficiency (58971116) Vitamin D insufficiency (E55.9) Active confirmed Problem History of tobacco use (3507031985310) History of tobacco abuse (Z87.891) Active confirmed 46 pack-year history Problem Seropositive rheumatoid arthritis (364271089) Seropositive rheumatoid arthritis (M05.9) Active confirmed Problem Rheumatoid arthritis (25949781) Rheumatoid arthritis, seropositive (M05.9) Active confirmed Problem Chronic obstructive pulmonary disease (20212771) Chronic bronchitis with COPD (chronic obstructive pulmonary disease) (J44.9) Active confirmed Problem 74920372 Type 2 diabetes mellitus with hyperglycemia, without long-term current use of insulin (E11.65) Active confirmed Problem Collagen disease (58481881) Connective tissue disease, 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) Active confirmed Problem 440020207 Type 2 diabetes mellitus without complication, without long-term current use of insulin (E11.9) Active confirmed Problem 875009773 Body mass index [BMI] 33.0-33.9, adult (Z68.33) Active confirmed Problem 254200189 Body mass index [BMI] 35.0-35.9, adult (Z68.35) Active confirmed Problem 832002919 Rheumatoid arthritis involving multiple sites, unspecified whether rheumatoid factor present (M06.9) Active confirmed Vital Signs Heart Rate 82 /min 01/25/2025 Temperature 97.0 degrees Fahrenheit 12/01/2024 Respiratory Rate 12 /min 01/25/2025 Oximetry 94 % 12/02/2024 Blood pressure diastolic 80 mm Hg 01/25/2025 Height 67 in 01/25/2025 Blood pressure systolic 134 mm Hg 01/25/2025 Weight 224 lbs 01/25/2025 BMI 35.08 kg/m2 01/25/2025 Encounters Encounter Location Date Provider Diagnosis [place] [address] [place] [address] 08/05/2024 Joe Navarrete Rheumatology [facility] [address] [facility] [address] [place] [address] 09/01/2024 Janet Wu Rheumatoid arthritis , seropositive M05.9 [facility] [address] [place] [address] 11/22/2024 Joe Navarrete Acute bronchitis, unspecified J20.9 [facility] [address], [place] [address] 11/25/2024 [facility] [address] [place] [address] 12/15/2024 Joe Navarrete Acute bronchitis, unspecified J20.9 and Other specified symptoms and signs involving the circulatory and respiratory systems R09.89 [facility] [address] [place] [address] 12/16/2024 Joe Navarrete Pulmonary Medicine [facility] [address] [place] [address] 01/03/2025 [facility] [address] [place] [address] 12/02/2024 Joe Navarrete Encounter for Medica re annual wellness exam Z00.00 ; Candidal stomatitis B37.0 ; Morbid (severe) obesity due to excess calories E66.01 ; Body mass index [BMI] 35.0-35.9, adult Z68.35 ; Essential (primary) hypertension I10 ; Gastro-esophageal reflux disease without esophagitis K21.9 ; Generalized anxiety disorder F41.1 ; Mixed hyperlipidemia E78.2 ; Pulmonary emphysema, unspecified emphysema type J43.9 ; Vitamin D insufficiency E55.9 ; Rheumatoid arthritis, unspecified M06.9 ; Prediabetes R73.03 and Impacted cerumen, bilateral H61.23 [facility] [address] [place] [address] 09/24/2024 Lab Provider [facility] [address] [place] [address] 01/25/2025 Lab Provider [facility] [address] 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 ; long term care social worker (current) use of inhaled steroids Z79.51 ; Obesity, unspecified E66.9 and Encounter for screening for malignant neoplasm of respiratory organs Z12.[address] [address] 08/11/2024 Joe Navarrete Generalized anxiety disorder F41.1 ; Acute bronchitis, unspecified J20.9 ; Chronic obstructive pulmonary disease with (acute) exacerbation J44.1 ; Encounter for screening for malignant neoplasm of prostate Z12.5 ; Essential (primary) hypertension I10 ; Mixed hyperlipidemia E78.2 ; Vitamin D insufficiency E55.9 ; Prediabetes R73.03 ; Other obesity due to excess calories E66.09 ; Body mass index [BMI] 34.0-34.9, adult Z68.34 ; Obesity, class 1 E66.811 ; Chronic obstructive pulmonary disease, unspecified J44.9 ; 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 ; Seropositive rheumatoid arthritis M05.9 ; Rheumatoid arthritis, seropositive M05.9 and Impacted cerumen, bilateral H61.23 Rheumatology [facility] [address] [place] [address] 09/24/2024 Janet Wu Polyosteoarthritis, unspecified M15.9 ; 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 ; Vitamin D insufficiency E55.9 ; Rheumatoid arthritis, seropositive M05.9 ; Paresthesia R20.2 and Other usp (current) drug therapy Z79.899 [place] [address] [place] [id number] 01/25/2025 Janet Wu Polyosteoarthritis, unspecified M15.9 ; 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 ; Vitamin D insufficiency E55.9 ; Rheumatoid arthritis, seropositive M05.9 ; Paresthesia R20.2 and Other computer terminal operator (current) drug therapy Z79.899 [place] [id number] [place] [phone] 03/25/2024 Janet Wu 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 ; Vitamin D insufficiency E55.9 ; Rheumatoid arthritis, seropositive M05.9 ; Paresthesia R20.2 ; Polyosteoarthritis, unspecified M15.9 and Other computer terminal operator (current) drug therapy Z79.899 Assessments Encounter Date Diagnosis (ICD Code) Assessment Notes Treatment Notes Treatment Clinical Notes Section Notes 12/01/2024 Centrilobular emphysema (ICD-10 - J43.2) Prior treatment: Symbicort 160 + Spiriva > Breztri > Symbicort 160 > Trelegy > Applexsreedhar Concerned that his breathing is declining since last visit. 2-3 exacerbations over past 4 months alone with prednisone 08/11/2024 and 11/22/2024. Reviewed inhaled medication regimen. I clarified it for him - will D/C albuterol nebs and change to albuterol/ipratro pium scheduled 2-4 times a day. Restart albuterol HFA. Continue Symbicort/Breyna/ budesonide+formot saba. Eosinophils 11/03/2024 were 6.4% / absolute count 400. If he fails the above, he could be a Dupixent (and now Nucala) candidate for eosinophilic phenotype. However, if he has issues affording inhalers, these biologics are drastically more expensive. Additionally Ohtuvayre is an option, but for some managed care plans, that can cost $600/month too. He has not participated in pulmonary rehabilitation. Suggested repeating PFT to qualify. He declined that for now. Patient voiced he wishes to see how he does with the above inhaled regimen changes first before anything else. Will have him return in ~2 months and reassess. 12/01/2024 OMAYRA (obstructive sleep apnea) (ICD-10 - G47.33) -HST 05/19/2023: AHI 26 Previously had superb compliance, with me documenting he cannot sleep without it which for some reason he completely denies ever saying to me? He said he could not stand it for a ~3 week period and just stopped it without contacting anyone to help troubleshoot any issues. This is a complete 180' from his last visit with me. He did not bother to contact the office to let me know of any concerns. He voiced no desire to restart it at this time. I am not going to argue with him. If he wants to restart it, he may need to repeat testing... 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 Current inflammatory disease activity= likely clinical remission to low disease at most, lungs seem stable; to (-)ESR/CRP - PLAN: -RA; status = STABLE --reiterated to patient on RA diagnosis, complications/esther rbidities --PO steroids: restart prn low dose prednisone 10mg taper by 2.5mg weekly --specific DMARD options: increase SSZ, caution MTX due to ongoing lung issues and hx fatty liver, consider biologics --CONTINUE HCQ/plaquenil/hydr oxychloroquine 200mg PO BID; Dorene valentine --last retinal screening = he reports but retinal screen still NOT available at time of note writing so will try to OBTAIN records again --counseled on benefits (treat symptoms, mitigate risk of autoimmune disease worsening, decrease flares, possibly improve mortality, etc.) of HCQ therapy and of HCQ risk including but not limited to risk retinal toxicity (requiring routine retinal eye toxicity screening, typically q6-12mos but defer to sheet metal assembler and riveter expertise based upon patients risk factors and comorbidities), etc --cards, f/u to periodically check ECG for QT changes; apparently Hussain did ECG 2022 and told patient ok for HCQ --CONTINUE SSZ/sulfasalazine 1000mg PO BID (G6PD wnl so low risk decreased clearance, rx 2022, increased ) --counseled on risk/benefits, risks including but not limited to secretions turning orange/yellow, liver toxicity, cytopenias/bone marrow suppression, etc --UPDATE basic labs to eval for cytopenias, liver/renal function, ESR/CRP - -COPD; status = STABLE --pulm, f/u Samsa; monitor for ILD - -low vitamin d; status =STABLE --rx () vitamin d2 50k units PO weekly x12 weeks followed by otc vitamin d3 2k units PO daily -- vitamin d level wnl, check at least yearly - -UE paresthesias, ?CTS; status = STABLE --consider formal EMG/NCV studies --encouraged otc night time cockup braces to see if helps symptoms --CHECK vitamin b12 level to ensure not low - -OA;status = STABLE --weight loss, low impact exercise --trigger finger CSI prn but currently NOT reliable trigger in clinic --tylenol prn --PT prn - RTC 4mos or sooner PRN (ok to f/u with DIRECTOR OF PURCHASING and only physician if concerns and/or on IV therapy) - Medical decision making: level 4 multiple chronic conditions addressed medication toxicity monitoring (HCQ, SSZ, notable attention to CBC/liver/renal labs, and GI upset/ retinal toxicity) monitoring lab, clinical, imaging for autoimmune disease activity and end organ involvement. 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 Current inflammatory disease activity = likely clinical remission to low disease at most; to (-)ESR/CRP - PLAN: -RA; status = STABLE --reiterated to patient on RA diagnosis, complications/esther rbidities --PO steroids: restart prn low dose prednisone 10mg taper by 2.5mg weekly --specific DMARD options: increase SSZ, caution MTX due to ongoing lung issues and hx fatty liver, consider biologics --CONTINUE HCQ/plaquenil/hydr oxychloroquine 200mg PO BID; Dorene valentine --last retinal screening = he thinks but retinal screen still NOT available at time of note writing so will try to OBTAIN records again --counseled on benefits (treat symptoms, mitigate risk of autoimmune disease worsening, decrease flares, possibly improve mortality, etc.) of HCQ therapy and of HCQ risk including but not limited to risk retinal toxicity (requiring routine retinal eye toxicity screening, typically q6-12mos but defer to sheet metal assembler and riveter expertise based upon patients risk factors and comorbidities), etc --cards, f/u to periodically check ECG for QT changes; apparently Hussain did ECG 2022 and told [...] = SYMPTOMATIC --weight loss, low impact exercise --trigger finger CSI prn but currently NOT reliable trigger in clinic --tylenol prn --PT prn --consider updating plain films bl feet to eval for inflammatory changes but he declines - -COPD; status = STABLE --pulm, f/u Samsa; monitor for ILD - -low vitamin d; status = STABLE --rx () vitamin d2 50k units PO weekly x12 weeks followed by otc vitamin d3 2k units PO daily -- vitamin d level wnl, check at least yearly - -UE paresthesias, ?CTS; status = STABLE --consider formal EMG/NCV studies --encouraged otc night time cockup braces to see if helps symptoms - RTC 4mos or sooner PRN (ok to f/u with DIRECTOR OF PURCHASING and only physician if concerns and/or on IV therapy) - Medical decision making: level 4 multiple chronic conditions addressed medication toxicity monitoring (HCQ, SSZ, notable attention to CBC/liver/renal labs, and GI upset/ retinal toxicity) monitoring lab, clinical, imaging for autoimmune disease activity and end organ involvement. 01/25/2025 Polyosteoarthrit is, unspecified (ICD-10 - M15.9) Bipin is a very pleasant 69yo white male, [...] status = STABLE --counseled on RA diagnosis, complications/esther rbidities --PO steroids: restart prn low dose prednisone 10mg taper by 2.5mg weekly --specific DMARD options: increase SSZ, caution MTX due to ongoing lung issues and hx fatty liver, consider biologics --CONTINUE HCQ/plaquenil/hydr oxychloroquine 200mg PO BID; Dorene valentine --last retinal screening= (see patient docs), next due --counseled on benefits (treat symptoms, mitigate risk of autoimmune disease worsening, decrease flares, possibly improve mortality, etc.) of HCQ therapy and of HCQ risk including but not limited to risk retinal toxicity (requiring routine retinal eye toxicity screening, typically q6-12mos but defer to sheet metal assembler and riveter expertise based upon patients risk factors and [...] currently NOT reliable trigger in clinic --counseled [id number] to optimize tylenol extra strength prn >> [...] or sooner PRN (ok to f/u with DIRECTOR OF PURCHASING and only physician if concerns and/or on IV therapy) - Medical decision making: level 4 multiple chronic conditions addressed medication toxicity monitoring (HCQ, SSZ, notable attention to CBC/liver/renal labs, and GI upset/ retinal toxicity) monitoring lab, clinical, imaging for autoimmune disease activity and end organ involvement 12/02/2024 Encounter for Medicare annual wellness exam (ICD-10 - Z00.00) rec eye and dental exams yearly diet/exercise rtc 1 year labs yearly rec colonoscopy in 2028 rec flu shot yearly rec dtap q10 years rec pn vaccine q5 years rec shingrix 12/02/2024 Candidal stomatitis (ICD-10 - B37.0) erx nystatin to use prn flare ups 09/01/2024 Rheumatoid arthritis, seropositive (ICD-10 - M05.9) 11/22/2024 Acute bronchitis, unspecified (ICD-10 - J20.9) 12/15/2024 Acute bronchitis, unspecified (ICD-10 - J20.9) 12/15/2024 Other specified symptoms and signs involving the circulatory and respiratory systems (ICD-10 - R09.89) 12/02/2024 Morbid (severe) obesity due to excess calories (ICD-10 - E66.01) diet/exercise due to HTN - see below 01/25/2025 Chronic bronchitis with COPD (chronic obstructive pulmonary disease) (ICD-10 - J44.9) Bipin is a very pleasant 69yo white male, [...] status = STABLE --counseled on RA diagnosis, complications/esther rbidities --PO steroids: restart prn low dose prednisone 10mg taper by 2.5mg weekly --specific DMARD options: increase SSZ, caution MTX due to ongoing lung issues and hx fatty liver, consider biologics --CONTINUE HCQ/plaquenil/hydr oxychloroquine 200mg PO BID; Dorene valentine --last retinal screening= (see patient docs), next due --counseled on benefits (treat symptoms, mitigate risk of autoimmune disease worsening, decrease flares, possibly improve mortality, etc.) of HCQ therapy and of HCQ risk including but not limited to risk retinal toxicity (requiring routine retinal eye toxicity screening, typically q6-12mos but defer to sheet metal assembler and riveter expertise based upon patients risk factors and [...] currently NOT reliable trigger in clinic --counseled [id number] to optimize tylenol extra strength prn >> [...] or sooner PRN (ok to f/u with DIRECTOR OF PURCHASING and only physician if concerns and/or on IV therapy) - Medical decision making: level 4 multiple chronic conditions addressed medication toxicity monitoring (HCQ, SSZ, notable attention to CBC/liver/renal labs, and GI upset/ retinal toxicity) monitoring lab, clinical, imaging for autoimmune disease activity and end organ involvement 09/24/2024 Chronic bronchitis with COPD (chronic obstructive pulmonary disease) (ICD-10 - J44.9) Bipin is a very pleasant 68yo white male, - Overall rheum impression=seropos itive rheumatoid arthritis/SPRA, diagnosed , 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 Current inflammatory disease activity = likely clinical remission to low disease at most; to (-)ESR/CRP - PLAN: -RA; status = STABLE --reiterated to patient on RA diagnosis, complications/esther rbidities --PO steroids: restart prn low dose prednisone 10mg taper by 2.5mg weekly --specific DMARD options: increase SSZ, caution MTX due to ongoing lung issues and hx fatty liver, consider biologics --CONTINUE HCQ/plaquenil/hydr oxychloroquine 200mg PO BID; Dorene valentine --last retinal screening = he thinks but retinal screen still NOT available at time of note writing so will try to OBTAIN records again --counseled on benefits (treat symptoms, mitigate risk of autoimmune disease worsening, decrease flares, possibly improve mortality, etc.) of HCQ therapy and of HCQ risk including but not limited to risk retinal toxicity (requiring routine retinal eye toxicity screening, typically q6-12mos but defer to sheet metal assembler and riveter expertise based upon patients risk factors and comorbidities), etc --cards, f/u to periodically check ECG for QT changes; apparently Hussain did ECG 2022 and told [...] = SYMPTOMATIC --weight loss, low impact exercise --trigger finger CSI prn but currently NOT reliable trigger in clinic --tylenol prn --PT prn --consider updating plain films bl feet to eval for inflammatory changes but he declines [id number] - -COPD; status = STABLE --pulm, f/u Samsa; monitor for ILD - -low vitamin d; status = STABLE --rx () vitamin d2 50k units PO weekly x12 weeks followed by otc vitamin d3 2k units PO daily -- vitamin d level wnl, check at least yearly - -UE paresthesias, ?CTS; status = STABLE --consider formal EMG/NCV studies --encouraged otc night time cockup braces to see if helps symptoms - RTC 4mos or sooner PRN (ok to f/u with DIRECTOR OF PURCHASING and only physician if concerns and/or on IV therapy) - Medical decision making: level 4 multiple chronic conditions addressed medication toxicity monitoring (HCQ, SSZ, notable attention to CBC/liver/renal labs, and GI upset/ retinal toxicity) monitoring lab, clinical, imaging for autoimmune disease activity and end organ involvement. 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 Current inflammatory disease activity= likely clinical remission to low disease at most, lungs seem stable; to (-)ESR/CRP - PLAN: -RA; status = STABLE --reiterated to patient on RA diagnosis, complications/esther rbidities --PO steroids: restart prn low dose prednisone 10mg taper by 2.5mg weekly --specific DMARD options: increase SSZ, caution MTX due to ongoing lung issues and hx fatty liver, consider biologics --CONTINUE HCQ/plaquenil/hydr oxychloroquine 200mg PO BID; Dorene valentine --last retinal screening = he reports but retinal screen still NOT available at time of note writing so will try to OBTAIN records again --counseled on benefits (treat symptoms, mitigate risk of autoimmune disease worsening, decrease flares, possibly improve mortality, etc.) of HCQ therapy and of HCQ risk including but not limited to risk retinal toxicity (requiring routine retinal eye toxicity screening, typically q6-12mos but defer to sheet metal assembler and riveter expertise based upon patients risk factors and comorbidities), etc --cards, f/u to periodically check ECG for QT changes; apparently Hussain did ECG 2022 and told patient ok for HCQ --CONTINUE SSZ/sulfasalazine 1000mg PO BID (G6PD wnl so low risk decreased clearance, rx 2022, increased ) --counseled on risk/benefits, risks including but not limited to secretions turning orange/yellow, liver toxicity, cytopenias/bone marrow suppression, etc --UPDATE basic labs to eval for cytopenias, liver/renal function, ESR/CRP - -COPD; status = STABLE --pulm, f/u Samsa; monitor for ILD - -low vitamin d; status =STABLE --rx () vitamin d2 50k units PO weekly x12 weeks followed by otc vitamin d3 2k units PO daily -- vitamin d level wnl, check at least yearly - -UE paresthesias, ?CTS; status = STABLE --consider formal EMG/NCV studies --encouraged otc night time cockup braces to see if helps symptoms --CHECK vitamin b12 level to ensure not low - -OA;status = STABLE --weight loss, low impact exercise --trigger finger CSI prn but currently NOT reliable trigger in clinic --tylenol prn --PT prn - RTC 4mos or sooner PRN (ok to f/u with DIRECTOR OF PURCHASING and only physician if concerns and/or on IV therapy) - Medical decision making: level 4 multiple chronic conditions addressed medication toxicity monitoring (HCQ, SSZ, notable attention to CBC/liver/renal labs, and GI upset/ retinal toxicity) monitoring lab, clinical, imaging for autoimmune disease activity and end organ involvement. 08/11/2024 Chronic obstructive pulmonary disease with (acute) exacerbation (ICD-10 - J44.1) rx faxed for tubing f/u pulm as directed 12/01/2024 Rheumatoid arthritis involving multiple sites, unspecified whether rheumatoid factor present (ICD-10 - M06.9) Discussed that RA can have associated pulmonary disease. May need to look into PFT and HRCT if he does not improve after next visit. 12/01/2024 History of tobacco abuse (ICD-10 - Z87.891) 1ppd x 46 years = 46 pack-year history, quit 2018 LDCT 11/21/2023 - RADS-2. Next LDCT over due 11/2024. States he was not contacted to get it done. I entered a new order and personally handed him the LDCT order along with the contact number for centralized scheduling. 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 Current inflammatory disease activity= likely clinical remission to low disease at most, lungs seem stable; to (-)ESR/CRP - PLAN: -RA; status = STABLE --reiterated to patient on RA diagnosis, complications/esther rbidities --PO steroids: restart prn low dose prednisone 10mg taper by 2.5mg weekly --specific DMARD options: increase SSZ, caution MTX due to ongoing lung issues and hx fatty liver, consider biologics --CONTINUE HCQ/plaquenil/hydr oxychloroquine 200mg PO BID; Dorene valentine --last retinal screening = he reports but retinal screen still NOT available at time of note writing so will try to OBTAIN records again --counseled on benefits (treat symptoms, mitigate risk of autoimmune disease worsening, decrease flares, possibly improve mortality, etc.) of HCQ therapy and of HCQ risk including but not limited to risk retinal toxicity (requiring routine retinal eye toxicity screening, typically q6-12mos but defer to sheet metal assembler and riveter expertise based upon patients risk factors and comorbidities), etc --cards, f/u to periodically check ECG for QT changes; apparently Hussain did ECG 2022 and told patient ok for HCQ --CONTINUE SSZ/sulfasalazine 1000mg PO BID (G6PD wnl so low risk decreased clearance, rx 2022, increased ) --counseled on risk/benefits, risks including but not limited to secretions turning orange/yellow, liver toxicity, cytopenias/bone marrow suppression, etc --UPDATE basic labs to eval for cytopenias, liver/renal function, ESR/CRP - -COPD; status = STABLE --pulm, f/u Samsa; monitor for ILD - -low vitamin d; status =STABLE --rx () vitamin d2 50k units PO weekly x12 weeks followed by otc vitamin d3 2k units PO daily -- vitamin d level wnl, check at least yearly - -UE paresthesias, ?CTS; status = STABLE --consider formal EMG/NCV studies --encouraged otc night time cockup braces to see if helps symptoms --CHECK vitamin b12 level to ensure not low - -OA;status = STABLE --weight loss, low impact exercise --trigger finger CSI prn but currently NOT reliable trigger in clinic --tylenol prn --PT prn - RTC 4mos or sooner PRN (ok to f/u with DIRECTOR OF PURCHASING and only physician if concerns and/or on IV therapy) - Medical decision making: level 4 multiple chronic conditions addressed medication toxicity monitoring (HCQ, SSZ, notable attention to CBC/liver/renal labs, and GI upset/ retinal toxicity) monitoring lab, clinical, imaging for autoimmune disease activity and end organ involvement. 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 Current inflammatory disease activity= likely clinical remission to low disease at most, lungs seem stable; to (-)ESR/CRP - PLAN: -RA; status = STABLE --reiterated to patient on RA diagnosis, complications/esther rbidities --PO steroids: restart prn low dose prednisone 10mg taper by 2.5mg weekly --specific DMARD options: increase SSZ, caution MTX due to ongoing lung issues and hx fatty liver, consider biologics --CONTINUE HCQ/plaquenil/hydr oxychloroquine 200mg PO BID; Dorene valentine --last retinal screening = he reports but retinal screen still NOT available at time of note writing so will try to OBTAIN records again --counseled on benefits (treat symptoms, mitigate risk of autoimmune disease worsening, decrease flares, possibly improve mortality, etc.) of HCQ therapy and of HCQ risk including but not limited to risk retinal toxicity (requiring routine retinal eye toxicity screening, typically q6-12mos but defer to sheet metal assembler and riveter expertise based upon patients risk factors and comorbidities), etc --cards, f/u to periodically check ECG for QT changes; apparently Hussain did ECG 2022 and told patient ok for HCQ --CONTINUE SSZ/sulfasalazine 1000mg PO BID (G6PD wnl so low risk decreased clearance, rx 2022, increased ) --counseled on risk/benefits, risks including but not limited to secretions turning orange/yellow, liver toxicity, cytopenias/bone marrow suppression, etc --UPDATE basic labs to eval for cytopenias, liver/renal function, ESR/CRP - -COPD; status = STABLE --pulm, f/u Samsa; monitor for ILD - -low vitamin d; status =STABLE --rx () vitamin d2 50k units PO weekly x12 weeks followed by otc vitamin d3 2k units PO daily -- vitamin d level wnl, check at least yearly - -UE paresthesias, ?CTS; status = STABLE --consider formal EMG/NCV studies --encouraged otc night time cockup braces to see if helps symptoms --CHECK vitamin b12 level to ensure not low - -OA;status = STABLE --weight loss, low impact exercise --trigger finger CSI prn but currently NOT reliable trigger in clinic --tylenol prn --PT prn - RTC 4mos or sooner PRN (ok to f/u with DIRECTOR OF PURCHASING and only physician if concerns and/or on IV therapy) - Medical decision making: level 4 multiple chronic conditions addressed medication toxicity monitoring (HCQ, SSZ, notable attention to CBC/liver/renal labs, and GI upset/ retinal toxicity) monitoring lab, clinical, imaging for autoimmune disease activity and end organ involvement. 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 Current inflammatory disease activity = likely clinical remission to low disease at most; to (-)ESR/CRP - PLAN: -RA; status = STABLE --reiterated to patient on RA diagnosis, complications/esther rbidities --PO steroids: restart prn low dose prednisone 10mg taper by 2.5mg weekly --specific DMARD options: increase SSZ, caution MTX due to ongoing lung issues and hx fatty liver, consider biologics --CONTINUE HCQ/plaquenil/hydr oxychloroquine 200mg PO BID; Dorene valentine --last retinal screening = he thinks but retinal screen still NOT available at time of note writing so will try to OBTAIN records again --counseled on benefits (treat symptoms, mitigate risk of autoimmune disease worsening, decrease flares, possibly improve mortality, etc.) of HCQ therapy and of HCQ risk including but not limited to risk retinal toxicity (requiring routine retinal eye toxicity screening, typically q6-12mos but defer to sheet metal assembler and riveter expertise based upon patients risk factors and comorbidities), etc --cards, f/u to periodically check ECG for QT changes; apparently Jose Robertocarinagoldie did ECG 2022 and told patient ok for HCQ --CONTINUE SSZ/sulfasalazine 1000mg PO BID (G6PD wnl so low risk decreased clearance, rx 2022, increased ) --counseled on risk/benefits, risks including but not limited to secretions turning orange/yellow, liver toxicity, cytopenias/bone marrow suppression, etc --UPDATE basic labs to eval for cytopenias, liver/renal function, ESR/CRP - -OA; status = SYMPTOMATIC --weight loss, low impact exercise --trigger finger CSI prn but currently NOT reliable trigger in clinic --tylenol prn --PT prn --consider updating plain films bl feet to eval for inflammatory changes but he declines - -COPD; status = STABLE --pulm, f/u Samsa; monitor for ILD - -low vitamin d; status = STABLE --rx () vitamin d2 50k units PO weekly x12 weeks followed by otc vitamin d3 2k units PO daily -- vitamin d level wnl, check at least yearly - -UE paresthesias, ?CTS; status = STABLE --consider formal EMG/NCV studies --encouraged otc night time cockup braces to see if helps symptoms - RTC 4mos or sooner PRN (ok to f/u with DIRECTOR OF PURCHASING and only physician if concerns and/or on IV therapy) - Medical decision making: level 4 multiple chronic conditions addressed medication toxicity monitoring (HCQ, SSZ, notable attention to CBC/liver/renal labs, and GI upset/ retinal toxicity) monitoring lab, clinical, imaging for autoimmune disease activity and end organ involvement. 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 Current inflammatory disease activity = likely clinical remission to low disease at most; to (-)ESR/CRP - PLAN: -RA; status = STABLE --reiterated to patient on RA diagnosis, complications/esther rbidities --PO steroids: restart prn low dose prednisone 10mg taper by 2.5mg weekly --specific DMARD options: increase SSZ, caution MTX due to ongoing lung issues and hx fatty liver, consider biologics --CONTINUE HCQ/plaquenil/hydr oxychloroquine 200mg PO BID; Doerne valentine --last retinal screening = he thinks but retinal screen still NOT available at time of note writing so will try to OBTAIN records again --counseled on benefits (treat symptoms, mitigate risk of autoimmune disease worsening, decrease flares, possibly improve mortality, etc.) of HCQ therapy and of HCQ risk including but not limited to risk retinal toxicity (requiring routine retinal eye toxicity screening, typically q6-12mos but defer to sheet metal assembler and riveter expertise based upon patients risk factors and comorbidities), etc --cards, f/u to periodically check ECG for QT changes; apparently Hussain did ECG 2022 and told [...] = SYMPTOMATIC --weight loss, low impact exercise --trigger finger CSI prn but currently NOT reliable trigger in clinic --tylenol prn --PT prn --consider updating plain films bl feet to eval for inflammatory changes but he declines - -COPD; status = STABLE --pulm, f/u Samsa; monitor for ILD - -low vitamin d; status = STABLE --rx () vitamin d2 50k units PO weekly x12 weeks followed by otc vitamin d3 2k units PO daily -- vitamin d level wnl, check at least yearly - -UE paresthesias, ?CTS; status = STABLE --consider formal EMG/NCV studies --encouraged otc night time cockup braces to see if helps symptoms - RTC 4mos or sooner PRN (ok to f/u with DIRECTOR OF PURCHASING and only physician if concerns and/or on IV therapy) - Medical decision making: level 4 multiple chronic conditions addressed medication toxicity monitoring (HCQ, SSZ, notable attention to CBC/liver/renal labs, and GI upset/ retinal toxicity) monitoring lab, clinical, imaging for autoimmune disease activity and end organ involvement. 01/25/2025 Vitamin D insufficiency (ICD-10 - E55.9) Bipin is a very pleasant 69yo white male, [...] status = STABLE --counseled on RA diagnosis, complications/esther rbidities --PO steroids: restart prn low dose prednisone 10mg taper by 2.5mg weekly --specific DMARD options: increase SSZ, caution MTX due to ongoing lung issues and hx fatty liver, consider biologics --CONTINUE HCQ/plaquenil/hydr oxychloroquine 200mg PO BID; Dorene valentine --last retinal screening= (see patient docs), next due --counseled on benefits (treat symptoms, mitigate risk of autoimmune disease worsening, decrease flares, possibly improve mortality, etc.) of HCQ therapy and of HCQ risk including but not limited to risk retinal toxicity (requiring routine retinal eye toxicity screening, typically q6-12mos but defer to sheet metal assembler and riveter expertise based upon patients risk factors and [...] currently NOT reliable trigger in clinic --counseled [id number] to optimize tylenol extra strength prn >> PO NSAIDS --consider updating plain films bl feet to eval for inflammatory changes, he declined [id number] - -COPD; status = STABLE --pulm: f/u [...] or sooner PRN (ok to f/u with DIRECTOR OF PURCHASING and only physician if concerns and/or on IV therapy) - Medical decision making: level 4 multiple chronic conditions addressed medication toxicity monitoring (HCQ, SSZ, notable attention to CBC/liver/renal labs, and GI upset/ retinal toxicity) monitoring lab, clinical, imaging for autoimmune disease activity and end organ involvement 12/02/2024 Body mass index [BMI] 35.0-35.9, adult (ICD-10 - Z68.35) 12/02/2024 Essential (primary) hypertension (ICD-10 - I10) bp check daily goal <130/80 diet/exercise monitor urine and bmp yearly rtc 6 months controlled 01/25/2025 Rheumatoid arthritis, seropositive (ICD-10 - M05.9) Bipin is a very pleasant 69yo white male, [...] status = STABLE --counseled on RA diagnosis, complications/esther rbidities --PO steroids: restart prn low dose prednisone 10mg taper by 2.5mg weekly --specific DMARD options: increase SSZ, caution MTX due to ongoing lung issues and hx fatty liver, consider biologics --CONTINUE HCQ/plaquenil/hydr oxychloroquine 200mg PO BID; Dorene valentine --last retinal screening= (see patient docs), next due --counseled on benefits (treat symptoms, mitigate risk of autoimmune disease worsening, decrease flares, possibly improve mortality, etc.) of HCQ therapy and of HCQ risk including but not limited to risk retinal toxicity (requiring routine retinal eye toxicity screening, typically q6-12mos but defer to sheet metal assembler and riveter expertise based upon patients risk factors and comorbidities), etc --cards, f/u to periodically check ECG for QT changes, apparently Jahairayenyyvan did ECG 2022 and told patient ok [...] currently NOT reliable trigger in clinic --counseled [id number] to optimize tylenol extra strength prn >> [...] or sooner PRN (ok to f/u with DIRECTOR OF PURCHASING and only physician if concerns and/or on IV therapy) - Medical decision making: level 4 multiple chronic conditions addressed medication toxicity monitoring (HCQ, SSZ, notable attention to CBC/liver/renal labs, and GI upset/ retinal toxicity) monitoring lab, clinical, imaging for autoimmune disease activity and end organ involvement 09/24/2024 Paresthesia (ICD-10 - R20.2) Bipin is a very pleasant 68yo white male, - Overall rheum impression=seropos itive rheumatoid arthritis/SPRA, diagnosed , 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 Current inflammatory disease activity = likely clinical remission to low disease at most; to (-)ESR/CRP - PLAN: -RA; status = STABLE --reiterated to patient on RA diagnosis, complications/esther rbidities --PO steroids: restart prn low dose prednisone 10mg taper by 2.5mg weekly --specific DMARD options: increase SSZ, caution MTX due to ongoing lung issues and hx fatty liver, consider biologics --CONTINUE HCQ/plaquenil/hydr oxychloroquine 200mg PO BID; Dorene valentine --last retinal screening = he thinks but retinal screen still NOT available at time of note writing so will try to OBTAIN records again --counseled on benefits (treat symptoms, mitigate risk of autoimmune disease worsening, decrease flares, possibly improve mortality, etc.) of HCQ therapy and of HCQ risk including but not limited to risk retinal toxicity (requiring routine retinal eye toxicity screening, typically q6-12mos but defer to sheet metal assembler and riveter expertise based upon patients risk factors and comorbidities), etc --cards, f/u to periodically check ECG for QT changes; apparently Hussain did ECG 2022 and told [...] = SYMPTOMATIC --weight loss, low impact exercise --trigger finger CSI prn but currently NOT reliable trigger in clinic --tylenol prn --PT prn --consider updating plain films bl feet to eval for inflammatory changes but he declines [id number] - -COPD; status = STABLE --pulm, f/u Samsa; monitor for ILD - -low vitamin d; status = STABLE --rx () vitamin d2 50k units PO weekly x12 weeks followed by otc vitamin d3 2k units PO daily -- vitamin d level wnl, check at least yearly - -UE paresthesias, ?CTS; status = STABLE --consider formal EMG/NCV studies --encouraged otc night time cockup braces to see if helps symptoms - RTC 4mos or sooner PRN (ok to f/u with DIRECTOR OF PURCHASING and only physician if concerns and/or on IV therapy) - Medical decision making: level 4 multiple chronic conditions addressed medication toxicity monitoring (HCQ, SSZ, notable attention to CBC/liver/renal labs, and GI upset/ retinal toxicity) monitoring lab, clinical, imaging for autoimmune disease activity and end organ involvement. 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 Current inflammatory disease activity= likely clinical remission to low disease at most, lungs seem stable; to (-)ESR/CRP - PLAN: -RA; status = STABLE --reiterated to patient on RA diagnosis, complications/esther rbidities --PO steroids: restart prn low dose prednisone 10mg taper by 2.5mg weekly --specific DMARD options: increase SSZ, caution MTX due to ongoing lung issues and hx fatty liver, consider biologics --CONTINUE HCQ/plaquenil/hydr oxychloroquine 200mg PO BID; Dorene valentine --last retinal screening = he reports but retinal screen still NOT available at time of note writing so will try to OBTAIN records again --counseled on benefits (treat symptoms, mitigate risk of autoimmune disease worsening, decrease flares, possibly improve mortality, etc.) of HCQ therapy and of HCQ risk including but not limited to risk retinal toxicity (requiring routine retinal eye toxicity screening, typically q6-12mos but defer to sheet metal assembler and riveter expertise based upon patients risk factors and comorbidities), etc --cards, f/u to periodically check ECG for QT changes; apparently Jahairayenyyvan did ECG 2022 and told patient ok for HCQ --CONTINUE SSZ/sulfasalazine 1000mg PO BID (G6PD wnl so low risk decreased clearance, rx 2022, increased ) --counseled on risk/benefits, risks including but not limited to secretions turning orange/yellow, liver toxicity, cytopenias/bone marrow suppression, etc --UPDATE basic labs to eval for cytopenias, liver/renal function, ESR/CRP - -COPD; status = STABLE --pulm, f/u Samsa; monitor for ILD - -low vitamin d; status =STABLE --rx () vitamin d2 50k units PO weekly x12 weeks followed by otc vitamin d3 2k units PO daily -- vitamin d level wnl, check at least yearly - -UE paresthesias, ?CTS; status = STABLE --consider formal EMG/NCV studies --encouraged otc night time cockup braces to see if helps symptoms --CHECK vitamin b12 level to ensure not low - -OA;status = STABLE --weight loss, low impact exercise --trigger finger CSI prn but currently NOT reliable trigger in clinic --tylenol prn --PT prn - RTC 4mos or sooner PRN (ok to f/u with DIRECTOR OF PURCHASING and only physician if concerns and/or on IV therapy) - Medical decision making: level 4 multiple chronic conditions addressed medication toxicity monitoring (HCQ, SSZ, notable attention to CBC/liver/renal labs, and GI upset/ retinal toxicity) monitoring lab, clinical, imaging for autoimmune disease activity and end organ involvement. 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 No treatment necessary. 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 Current inflammatory disease activity= likely clinical remission to low disease at most, lungs seem stable; to (-)ESR/CRP - PLAN: -RA; status = STABLE --reiterated to patient on RA diagnosis, complications/esther rbidities --PO steroids: restart prn low dose prednisone 10mg taper by 2.5mg weekly --specific DMARD options: increase SSZ, caution MTX due to ongoing lung issues and hx fatty liver, consider biologics --CONTINUE HCQ/plaquenil/hydr oxychloroquine 200mg PO BID; Dorene valentine --last retinal screening = he reports but retinal screen still NOT available at time of note writing so will try to OBTAIN records again --counseled on benefits (treat symptoms, mitigate risk of autoimmune disease worsening, decrease flares, possibly improve mortality, etc.) of HCQ therapy and of HCQ risk including but not limited to risk retinal toxicity (requiring routine retinal eye toxicity screening, typically q6-12mos but defer to sheet metal assembler and riveter expertise based upon patients risk factors and comorbidities), etc --cards, f/u to periodically check ECG for QT changes; apparently Hussain did ECG 2022 and told patient ok for HCQ --CONTINUE SSZ/sulfasalazine 1000mg PO BID (G6PD wnl so low risk decreased clearance, rx 2022, increased ) --counseled on risk/benefits, risks including but not limited to secretions turning orange/yellow, liver toxicity, cytopenias/bone marrow suppression, etc --UPDATE basic labs to eval for cytopenias, liver/renal function, ESR/CRP - -COPD; status = STABLE --pulm, f/u Samsa; monitor for ILD - -low vitamin d; status =STABLE --rx () vitamin d2 50k units PO weekly x12 weeks followed by otc vitamin d3 2k units PO daily -- vitamin d level wnl, check at least yearly - -UE paresthesias, ?CTS; status = STABLE --consider formal EMG/NCV studies --encouraged otc night time cockup braces to see if helps symptoms --CHECK vitamin b12 level to ensure not low - -OA;status = STABLE --weight loss, low impact exercise --trigger finger CSI prn but currently NOT reliable trigger in clinic --tylenol prn --PT prn - RTC 4mos or sooner PRN (ok to f/u with DIRECTOR OF PURCHASING and only physician if concerns and/or on IV therapy) - Medical decision making: level 4 multiple chronic conditions addressed medication toxicity monitoring (HCQ, SSZ, notable attention to CBC/liver/renal labs, and GI upset/ retinal toxicity) monitoring lab, clinical, imaging for autoimmune disease activity and end organ involvement. 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 Current inflammatory disease activity = likely clinical remission to low disease at most; to (-)ESR/CRP - PLAN: -RA; status = STABLE --reiterated to patient on RA diagnosis, complications/esther rbidities --PO steroids: restart prn low dose prednisone 10mg taper by 2.5mg weekly --specific DMARD options: increase SSZ, caution MTX due to ongoing lung issues and hx fatty liver, consider biologics --CONTINUE HCQ/plaquenil/hydr oxychloroquine 200mg PO BID; Dorene valentine --last retinal screening = he thinks but retinal screen still NOT available at time of note writing so will try to OBTAIN records again --counseled on benefits (treat symptoms, mitigate risk of autoimmune disease worsening, decrease flares, possibly improve mortality, etc.) of HCQ therapy and of HCQ risk including but not limited to risk retinal toxicity (requiring routine retinal eye toxicity screening, typically q6-12mos but defer to sheet metal assembler and riveter expertise based upon patients risk factors and comorbidities), etc --cards, f/u to periodically check ECG for QT changes; apparently Hussain did ECG 2022 and told [...] = SYMPTOMATIC --weight loss, low impact exercise --trigger finger CSI prn but currently NOT reliable trigger in clinic --tylenol prn --PT prn --consider updating plain films bl feet to eval for inflammatory changes but he declines [id number] - -COPD; status = STABLE --pulm, f/u Samsa; monitor for ILD - -low vitamin d; status = STABLE --rx () vitamin d2 50k units PO weekly x12 weeks followed by otc vitamin d3 2k units PO daily -- vitamin d level wnl, check at least yearly - -UE paresthesias, ?CTS; status = STABLE --consider formal EMG/NCV studies --encouraged otc night time cockup braces to see if helps symptoms - RTC 4mos or sooner PRN (ok to f/u with DIRECTOR OF PURCHASING and only physician if concerns and/or on IV therapy) - Medical decision making: level 4 multiple chronic conditions addressed medication toxicity monitoring (HCQ, SSZ, notable attention to CBC/liver/renal labs, and GI upset/ retinal toxicity) monitoring lab, clinical, imaging for autoimmune disease activity and end organ involvement. 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, NONerosive, NONdeforming, with (+)RF moderate titer, elevated ESR/CRP and inflammatory polyarthritis RA distribution, acute and close to chronic, onset Jan23, so remains early on in diagnosis, (-)CCP; [...] status = STABLE --counseled on RA diagnosis, complications/esther rbidities --PO steroids: restart prn low dose prednisone 10mg taper by 2.5mg weekly --specific DMARD options: increase SSZ, caution MTX due to ongoing lung issues and hx fatty liver, consider biologics --CONTINUE HCQ/plaquenil/hydr oxychloroquine 200mg PO BID; Dorene valentine --last retinal screening= (see patient docs), next due --counseled on benefits (treat symptoms, mitigate risk of autoimmune disease worsening, decrease flares, possibly improve mortality, etc.) of HCQ therapy and of HCQ risk including but not limited to risk retinal toxicity (requiring routine retinal eye toxicity screening, typically q6-12mos but defer to sheet metal assembler and riveter expertise based upon patients risk factors and [...] currently NOT reliable trigger in clinic --counseled [id number] to optimize tylenol extra strength prn >> [...] or sooner PRN (ok to f/u with DIRECTOR OF PURCHASING and only physician if concerns and/or on IV therapy) - Medical decision making: level 4 multiple chronic conditions addressed medication toxicity monitoring (HCQ, SSZ, notable attention to CBC/liver/renal labs, and GI upset/ retinal toxicity) monitoring lab, clinical, imaging for autoimmune disease activity and end organ involvement 12/02/2024 Gastro-esophagea l reflux disease without esophagitis (ICD-10 - K21.9) diet stable 12/02/2024 Generalized anxiety disorder (ICD-10 - F41.1) oarrs ok continue xanax prn stable 01/25/2025 Other usp (current) drug therapy (ICD-10 - Z79.899) Bipin is a very pleasant 69yo white male, [...] status = STABLE --counseled on RA diagnosis, complications/esther rbidities --PO steroids: restart prn low dose prednisone 10mg taper by 2.5mg weekly --specific DMARD options: increase SSZ, caution MTX due to ongoing lung issues and hx fatty liver, consider biologics --CONTINUE HCQ/plaquenil/hydr oxychloroquine 200mg PO BID; Dorene valentine --last retinal screening= (see patient docs), next due --counseled on benefits (treat symptoms, mitigate risk of autoimmune disease worsening, decrease flares, possibly improve mortality, etc.) of HCQ therapy and of HCQ risk including but not limited to risk retinal toxicity (requiring routine retinal eye toxicity screening, typically q6-12mos but defer to sheet metal assembler and riveter expertise based upon patients risk factors and [...] currently NOT reliable trigger in clinic --counseled [id number] to optimize tylenol extra strength prn >> PO NSAIDS --consider updating plain films bl feet to eval for inflammatory changes, he declined [id number] - -COPD; status = STABLE --pulm: f/u [...] or sooner PRN (ok to f/u with DIRECTOR OF PURCHASING and only physician if concerns and/or on IV therapy) - Medical decision making: level 4 multiple chronic conditions addressed medication toxicity monitoring (HCQ, SSZ, notable attention to CBC/liver/renal labs, and GI upset/ retinal toxicity) monitoring lab, clinical, imaging for autoimmune disease activity and end organ involvement 08/11/2024 Vitamin D insufficiency (ICD-10 - E55.9) monitor lab - change tx if needed 12/01/2024 Obesity, unspecified (ICD-10 - E66.9) Patient's weight is inducing a restrictive pulmonary physiology. Weight loss indicated: Decrease calories, increase activity. 12/01/2024 Encounter for screening for malignant neoplasm of respiratory organs (ICD-10 - Z12.2) Low-dose CT (LDCT) was recommended for lung cancer screening. The patient meets criteria including age 50-77, a smoking history of at least 20 pack-years, is currently smoking or has ceased smoking within the past 15 years, and has no signs or symptoms of lung cancer. Shared decision making performed with the patient. After LDCT has been completed, will review report and/or imaging and provide appropriate recommendations for the patient, including additional follow up if needed. Patient was counseled on smoking cessation/continu ed tobacco abstinence. LDCT due now. 08/11/2024 Prediabetes (ICD-10 - R73.03) monitor A1c no DM 12/02/2024 Mixed hyperlipidemia (ICD-10 - E78.2) labs yearly - LDL goal <70 diet/exercise controlled 12/02/2024 Pulmonary emphysema, unspecified emphysema type (ICD-10 - J43.9) f/u pulm as directed for CT and tx options 08/11/2024 Other obesity due to excess calories (ICD-10 - E66.09) diet/exercise due to HTN/prediabetes/h yperlipidemia - see above for tx options 08/11/2024 Body mass index [BMI] 34.0-34.9, adult (ICD-10 - Z68.34) 12/02/2024 Vitamin D insufficiency (ICD-10 - E55.9) labs yearly - change tx if needed stable 12/02/2024 Rheumatoid arthritis, unspecified (ICD-10 - M06.9) f/u rheum as directed rec being UTD on all vaccines 08/11/2024 Obesity, class 1 (ICD-10 - E66.811) 08/11/2024 Chronic obstructive pulmonary disease, unspecified (ICD-10 - J44.9) rec flu shot yearly - UTD RSV vaccine UTD rec prevnar 20 if not done in the last 5 years monitor pft f/u pulm as directed 12/02/2024 Prediabetes (ICD-10 - R73.03) a1c stable - recheck in 6 months diet/exercise med if >7 eye exam yearly - dilated foot exam daily 12/02/2024 Impacted cerumen, bilateral (ICD-10 - H61.23) rtc removal if wishes debrox otc 08/11/2024 Chronic bronchitis with COPD (chronic obstructive pulmonary disease) (ICD-10 - J44.9) see above 08/11/2024 Seropositive rheumatoid arthritis (ICD-10 - M05.9) see below 08/11/2024 Rheumatoid arthritis, seropositive (ICD-10 - M05.9) f/u rheum monitor cbc/cmp 08/11/2024 Impacted cerumen, bilateral (ICD-10 - H61.23) debrox otc rtc removal if wishes 12/01/2024 Other 07/27/2024 Bipin is a very pleasant 68yo white male, PENDING EVAL Overall rheum impression=seropos itive rheumatoid arthritis/SPRA, diagnosed , 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 Current inflammatory disease activity= likely clinical remission to low disease at most, lungs seem stable; to (-)ESR/CRP - PLAN: -RA; status = STABLE --reiterated to patient on RA diagnosis, complications/esther rbidities --PO steroids: restart prn low dose prednisone 10mg taper by 2.5mg weekly --specific DMARD options: increase SSZ, caution MTX due to ongoing lung issues and hx fatty liver, consider biologics --CONTINUE HCQ/plaquenil/hydr oxychloroquine 200mg PO BID; ophtho, Rudinoff --[ ]last retinal screening = he reports but retinal screen still NOT available at time of note writing so will try to OBTAIN records again --counseled on benefits (treat symptoms, mitigate risk of autoimmune disease worsening, decrease flares, possibly improve mortality, etc.) of HCQ therapy and of HCQ risk including but not limited to risk retinal toxicity (requiring routine retinal eye toxicity screening, typically q6-12mos but defer to sheet metal assembler and riveter expertise based upon patients risk factors and comorbidities), etc --cards, f/u to periodically check ECG for QT changes; apparently Hussain did ECG 2022 and told patient ok for HCQ --CONTINUE SSZ/sulfasalazine 1000mg PO BID (G6PD wnl so low risk decreased clearance, rx 2022, increased ) --counseled on risk/benefits, risks including but not limited to secretions turning orange/yellow, liver toxicity, cytopenias/bone marrow suppression, etc --[ ]UPDATE basic labs to eval for cytopenias, liver/renal function, ESR/CRP - -COPD; status = STABLE --pulm, f/u Samsa; monitor for ILD - -low vitamin d; status =STABLE --rx () vitamin d2 50k units PO weekly x12 weeks followed by otc vitamin d3 2k units PO daily -- vitamin d level wnl, check at least yearly - -UE paresthesias, ?CTS; status = STABLE --consider formal EMG/NCV studies --encouraged otc night time cockup braces to see if helps symptoms - -OA;status = STABLE --weight loss, low impact exercise --trigger finger CSI prn but currently NOT reliable trigger in clinic --tylenol prn --PT prn - RTC 4mos or sooner PRN (ok to f/u with DIRECTOR OF PURCHASING and only physician if concerns and/or on IV therapy) - Medical decision making: level 4 multiple chronic conditions addressed medication toxicity monitoring (HCQ, SSZ, notable attention to CBC/liver/renal labs, and GI upset/ retinal toxicity) monitoring lab, clinical, imaging for autoimmune disease activity and end organ involvement. Plan Of Treatment Pending Test Test Name Order Date HEMOGLOBIN A1C (GLYCO) 08/11/2024 LIPID PANEL (CHOL/TRIG/HDL/LDL) 08/11/19 25 CBC WITH DIFF 08/11/2024 BMP (BASIC MET PANEL - W/GFR) 03/24/2023 MICROALBUMIN with ALB/CREAT RATIO, URINE (MALB)) 12/26/2022 MICROALBUMIN with ALB/CREAT RATIO, URINE (MALB)) 08/11/2024 VITAMIN D, 25 LEVEL (TOTAL) 08/11/2024 XR Chest PA and Lateral (Routine CXR) * 12/15/2024 Cerumen Removal - performed 12/26/2022 Cerumen Removal - performed 10/31/2023 CMP (COMP MET DURHAM) w/eGFR CKD-EPI 2024 Next Appt Details Provider Name:Janet Quilessushila wood, 05/23/2025 11:00:00 AM, [address], [address], [place], [address], Insurance Providers Payer Name Payer Address Payer Phone Subscriber Number Group Number Insured Name Patient Relationship to Insured Coverage Start Date Coverage End Date [employer]AN [address] [place] [phone] [id number] [id number] Bipin Ulloa Self - patient is the insured 2 Medical (General) History Medical History History ICD Code HTN RT inguinal hernia atherosclerosis of aorta GERD anxiety hypertriglyceridemia insomnia hyperlipidemia restrictive lung disease steatosis of liver DM-2 hyponatremia hx of stomach/duodenal ulcer RA OA History of tobacco abuse Z87.891 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
--- OUTSIDE RECORDS SUMMARY | 2025-02-09 09:29 | XMS_ITS | Clinical Summary ---
Author Organization [facility] Address [address] [place] [address] Care Team Providers Care Mill Operator Name Role Phone Rosalba Joe Primary Care Provider [phone] Allergies No known active allergies Medications sulfaSALAzine (Azulfidine) 500 mg tablet TAKE 1 TABLET BY MOUTH TWICE A DAY FOR 90 DAYS 3 Active hydroxychloroqui ne (Plaquenil) 200 mg tablet TAKE 1 TABLET BY MOUTH TWICE A DAY WITH FOOD OR MILK 3 Active aspirin 81 mg EC tablet Take 1 tablet every day by oral route. Active atorvastatin (Lipitor) 10 mg tablet Take 1 tablet every day by oral route. Active budesonide-formo teroL (Symbicort) 160-4.5 mcg/actuation inhaler Inhale 2 puffs twice a day by inhalation route. Active ergocalciferol (Vitamin D-2) 1.25 MG (75707 Units) capsule THE 1 CAPSULE BY MOUTH ONCE WEEKLY X 12 WEEKS, THEN 2000UNIT DAILY 3 Active lisinopril 40 mg tablet Take 40 mg by mouth in the morning. 3 Active metoprolol tartrate (Lopressor) 50 mg tablet Take 1.5 tablets twice a day by oral route. Active pantoprazole (ProtoNix) 40 mg EC tablet Take 40 mg by mouth in the morning and at bedtime. 3 Active albuterol 90 mcg/actuation inhaler Inhale 2 puffs every 4 (four) hours if needed. 5 Active albuterol 2.5 mg /3 mL (0.083 %) nebulizer solution Take 2.5 mg by nebulization every 4 (four) hours if needed. 4 Active ALPRAZolam (Xanax) 0.25 mg tablet Take 0.25 mg by mouth if needed at bedtime. 5 Active amLODIPine (Norvasc) 10 mg tabletIndication s:Primary hypertension Take 1 tablet (10 mg) by mouth in the morning. 90 tablet 3 5 026 Active Active Problems Problem Noted Date Diagnosed Date Chronic obstructive lung disease 10/25/2021 Fatigue 10/25/2021 Gastroesophageal reflux disease 10/25/2021 Hyperlipidemia 10/25/2021 Hypertensive disorder 10/25/2021 Obesity 10/25/2021 Type 2 diabetes mellitus 10/25/2021 Encounters Date Type Department Care Team Description 01/03/2025 10:45 AM EDT Office Visit [facility] [address] [place] [address] Luis Miguel Neal MD Primary hypertension (Primary Dx); Mixed hyperlipidemia; Shortness of breath 12/16/[address] [facility] [address] [place] [phone] Luis Miguel Neal MD Essential (primary) hypertension from Last 3 Months Family History Medical History Relation Name Comments Coronary artery disease Father Heart failure Father Relation Name Status Comments Father Mother Social History Tobacco Use Types Packs/Day Years Used Date Smoking Tobacco: Former Cigarettes Smokeless Tobacco: Never Tobacco Cessation:Counseling Given: Not Answered Alcohol Use Standard Drinks/Week Comments Yes 0 (1 standard drink = 0.6 oz pur e alcohol) moderate [place] Safety & Environment Answer Date Rec orded Fear of Current or Ex-Partner Not on file Emotionally Abused Not on file 08/28/2023 Physically Abused Not on file 08/28/2023 Sexually Abused Not on file 08/28/2023 Physically or Sexually Abused Not on file Sex and Gender Information Value Date Recorded Sex Assigned at Not on file Legal Sex Male 11:55 PM EDT Gender Identity Not on file Sexual Orientation Not on file Last Filed Vital Signs Vital Sign Reading Time Taken Comments Blood Pressure 154/88 01/03/2025 11:16 AM EDT Pulse 69 01/03/2025 11:16 AM EDT Temperature - - Respiratory Rate - - Oxygen Saturation 93% 01/03/2025 11:16 AM EDT Inhaled Oxygen Concentration - - Weight 101 kg (222 lb) 01/03/2025 11:16 AM EDT Height 170.2 cm (5' 7 ) 01/03/2025 11:16 AM EDT Body Mass Index 34.77 01/03/2025 11:16 AM EDT Plan of Treatment Health Maintenance Due Date Last Done Comments CT Colonography 1955 Colonoscopy 1955 Colorectal Cancer Screening 1955 Diabetes: Hemoglobin A1C 1955 FIT-DNA 1955 FIT 1955 FOBT 1955 Medicare Annual Wellness (AWV) 1955 Sigmoidoscopy 1955 Diabetes: Retinopathy Screening 11/16/1965 Depression Screening 1967 Diabetes: Urine Protein Screening 11/16/1974 Adult Tetanus 11/16/1977 Zoster Vaccines (1 of 2) 11/16/2005 Fall Risk Screening 11/16/2020 COVID-19 Vaccine (2023-2 5 season) 2024 06/02/2021, 10/28/2020, 10/07/2020 Influenza Vaccine (#1) 2025 , 05/01/2021, 04/19/2020 Pneumococcal Vaccine: 50+ Years Completed 05/21/2023, 11/26/2019 HIB Vaccines Aged Out No longer eligi ble based on patient's age to complete this topic HPV Vaccines Aged Out No longer eligi ble based on patient's age to complete this topic IPV Vaccines Aged Out No longer eligi ble based on patient's age to complete this topic Meningococcal B Vaccine Aged Out No l onger eligible based on patient's age to complete this topic Meningococcal Vaccine Aged Out No sanchez allison eligible based on patient's age to complete this topic Rotavirus Vaccines Aged Out No longer eligible based on patient's age to complete this topic Insurance [employer] Care Teams Mill Operator Relationship Specialty Start Date End Date Joe Navarrete DO [address] [place] [address] PCP - General 12/13/22
--- OUTSIDE RECORDS SUMMARY | 2025-02-09 09:29 | XMS_ITS | Clinical Summary ---
Author Organization [facility] Address [address], [address] [place] [address] Care Team Providers Care Splitting Machine Operator Name Role Phone Joe Navarrete MD Primary Care Provider Social History Tobacco Use Types Packs/Day Years Used Date Smoking Tobacco: Never Assessed Sex and Gender Information Value Date Recorded Sex Assigned at Not on file Legal Sex Male 2:20 PM EST Gender Identity Not on file Sexual Orientation Not on file Plan of Treatment Not on file Insurance [employer] Care Teams Splitting Machine Operator Relationship Specialty Start Date End Date Joe Navarrete MD [address] [place] [id number] PCP - General Family Medicine 05/19/20
--- NOTE | 2025-02-09 09:43 | CA_ITS ---
Patient Name: BIPIN ULLOA MR#: [id number] : 1955 Exam Date: 02/09/2025 Ordering Doctor: DR MARCIANO NEAL M.D. ECHOCARDIOGRAM REPORT PROCEDURE: CA ECHO DOPPLER COMPLETE INDICATIONS: Shortness of breath COMPARISON: None. DESCRIPTION: COMPLETE ECHOCARDIOGRAM Real-time transthoracic echocardiography with 2D, M-mode, spectral and color flow Doppler performed. QUALITY: Technical quality was good. LEFT VENTRICLE: Normal chamber size. Normal left ventricular wall thickness. Global left ventricular systolic function is normal. LV EF: Estimated left ventricular ejection fraction is 60%. DIASTOLIC: Grade 2 diastolic dysfunction diastolic function. ATRIAL SEPTUM: LEFT ATRIUM: Normal chamber size. RIGHT ATRIUM: Normal chamber size. RIGHT VENTRICLE: Normal chamber size. Normal right ventricular systolic function. TRICUSPID VALVE: Normal mobility and thickness. No stenosis with trivial regurgitation. Mild pulmonary hypertension. RVSP 35 mmHg. MITRAL VALVE: Mildly thickened with normal mobility. No evidence of mitral valve stenosis. There is no mitral annular calcification. Trivial mitral regurgitation. AORTIC VALVE: Normal trileaflet appearance. Mildly calcified aortic valve. Normal leaflet mobility. No evidence of aortic valve stenosis. DVI 0.68. No aortic regurgitation. AORTIC ROOT: Normal diameter and appearance, measuring 3.0 cm. Normal size ascending aorta measuring 3.0 cm. PULMONIC VALVE: Normal thickness and mobility. No stenosis. Trivial regurgitation. PERICARDIUM: No evidence of pericardial effusion. IVC: Collapses with inspiration. Normal size. PLEURA: CONCLUSION: 1. Normal left ventricular size and systolic function. LVEF is estimated at 60%. 2. Normal right ventricular size and systolic function. 3. Grade 2 diastolic dysfunction. 4. No significant valvular dysfunction. 5. Mildly elevated right-sided pressures. Adult Echocardiography Procedure Report Left Ventricle LVEDD (3.7 - 5.6 cm): 4.68 cm LVESD (2.2 - 4.0 cm): 3.17 cm LVIVS thickness (0.6 - 1.2 cm): 0.89 cm LVPW thickness (0.5 - 1.0 cm): 0.82 cm e': 0.09 m/s E - e': 12.76 LVOT Max Gradient: 3.45 mm[Hg] LVOT Area (cm2): 0.93 m/s Peak Velocity (LVOT): 0.93 m/s Mean Velocity (LVOT): 0.64 m/s LVOT Diameter 2.33 cm Left Ventricular Ejection Fraction: 60 % Left Atrium LA Volume Index (2D A2C): 31.06 ml/m2 Left Atrium Systolic Dimension: 4.21 cm Mitral Valve MV E to A Ratio: 1.26 Mitral Valve A-Wave Peak Velocity: 0.94 m/s Mitral Valve E-Wave Peak Velocity: 1.18 m/s Right Ventricle RV Internal Diastolic Dimension: 3.61 cm Aorta AO Root Diam: 2.98 cm Ascending Ao Diam: 3.01 cm Aortic Valve AoV Area (Peak Per): 2.92 cm2, 2.92 cm2 AoV Area (VTI): 3.07 cm2, 3.07 cm2 Peak Velocity(Antegrade Flow): 1.36 m/s Peak Gradient(Antegrade Flow): 7.41 mm[Hg] Mean Velocity(Antegrade Flow): 0.89 m/s Mean Gradient(Antegrade Flow): 3.70 mm[Hg] Velocity Time Integral: 30.35 cm Tricuspid Valve Peak Velocity (Regurgitant Flow): 1.72 m/s, 2.84 m/s Pulmonic Valve Mean Gradient: 1.48 mm[Hg] Mean Velocity: 0.56 m/s Peak Velocity: 0.87 m/s, 0.70 m/s Peak Gradient: 1.94 mm[Hg], 3.01 mm[Hg] Right Atrium Right Atrium Systolic Pressure: 34.20 ml, 34.20 ml Dictated by: Marciano Neal M.D. on 02/09/2025 at 18:19 Approved by: Marciano Neal M.D. on 02/09/2025 at 18:22
== END 2025-02-09 09:28 | disposition home or self-care (01) ==
LOC: CARD 09:27
PROVIDERS: PCP Family Medicine; Visit Provider Internal Medicine Interventional Cardiology
DX: R06.02 Shortness of breath (principal)
CPT/HCPCS: 93306